=== PATIENT | male | born 1955 | race Caucasian/White ===

== ENCOUNTER → 2016-03-16 | Outpatient (CLI) | payer BC ==
[~2016-03-16] MED LIST: AMLO10TA2 PO; ASPEC325 PO; CLC6 PO; EPPJR SC; HYDR-3419 PO; INDO50CA97 PO; LOSA1TAB38 PO; METH-307 PO
[2016-03-16 09:48] LABS: BLOOD UREA NITROGEN 13 mg/dl (7-18); CALCIUM 9.1 mg/dl (8.5-10.1); CARBON DIOXIDE 29 mmol/L (21-32); CHLORIDE 103 mmol/L (98-107); CREATININE 0.71 mg/dl (0.60-1.40); GLUCOSE 116 mg/dl (70-99); POTASSIUM 4.4 mmol/L (3.5-5.1); SODIUM 141 mmol/L (136-145); URIC ACID 4.4 mg/dl (2.6-7.2)
== END | disposition home or self-care (01) ==
LOC: C.LAB 07:44
DX: I10 Essential (primary) hypertension (principal); E79.0 Hyperuricemia without signs of inflammatory arthritis and tophaceous disease

== ENCOUNTER → 2016-09-28 | Outpatient (CLI) | payer BC ==
[2016-09-28 09:37] LABS: BASO % 0.5 %; BASO ABS # 0.04 K/uL (0-0.2); COMPLETE YES; EOS % 3.8 %; HEMATOCRIT 53.2 % (42-52); IG% 0.4 %; LYMPH ABS # 1.86 K/uL (1.2-3.4); MEAN CELL VOLUME 100.8 fL (80-100); MEAN CORPUSCULAR HEMOGLOBIN 34.7 pg (25-34); MEAN CORPUSCULAR HGB CONC 34.4 g/dl (32-36); MEAN PLATELET VOLUME 11.1 fL (7.4-10.4); MONO % 10.1 %; NEUT % 60.2 %; PLATELET COUNT 186 K/uL (130-400); RED BLOOD COUNT 5.28 M/uL (4.7-6.1); WHITE BLOOD COUNT 7.45 K/uL (4.8-10.8)
[2016-09-28 09:45] LABS: ALT/SGPT 44 U/L (12-78); AST/SGOT 25 U/L (15-37); BLOOD UREA NITROGEN 11 mg/dl (7-18); BUN/CREATININE RATIO 16.7 (10-20); CALCIUM 8.9 mg/dl (8.5-10.1); CARBON DIOXIDE 29 mmol/L (21-32); CHLORIDE 103 mmol/L (98-107); CHOLESTEROL 162 mg/dl (0-200); CREATININE 0.66 mg/dl (0.60-1.40); GLUCOSE 110 mg/dl (70-99); POTASSIUM 3.8 mmol/L (3.5-5.1); SODIUM 138 mmol/L (136-145); TRIGLYCERIDES 51 mg/dl (0-150); URIC ACID 5.2 mg/dl (2.6-7.2); VERY LOW DENSITY LIPOPROT CALC 10 mg/dl
[2016-09-28 09:48] LABS: CHOLESTEROL/HDL RATIO 2.7; HDL CHOLESTEROL 59 mg/dl; LDL CHOLESTEROL CALCULATED 93 mg/dl
== END | disposition home or self-care (01) ==
LOC: C.LAB 07:22
DX: I10 Essential (primary) hypertension (principal); E78.5 Hyperlipidemia, unspecified; E79.0 Hyperuricemia without signs of inflammatory arthritis and tophaceous disease

== ENCOUNTER → 2016-10-13 | Outpatient (CLI) | payer BC ==
--- NOTE | 2016-10-13 13:04 | DIAGNOSTIC IMAGING REPORT ---
CHEST 2 VIEWS ROUTINE CLINICAL HISTORY: POLYCYTHEMIA dyspnea COMPARISON STUDY: No previous studies for comparison. FINDINGS: Moderate emphysematous change. Platelike atelectasis versus parenchymal scarring left lower lung. Mild interstitial prominence bilaterally presumably chronic. Diaphragms are smooth but somewhat flattened. IMPRESSION: Emphysematous and chronic change. No acute process. The above report was generated using voice recognition software. It may contain grammatical, syntax or spelling errors. Electronically signed by: Jaylan Metzger M.D. 10/13/2016 1:02 PM Dictated Date/Time: 10/13/2016 1:01 PM
--- NOTE | 2016-10-15 14:39 | PULMONARY FUNCTION TEST ---
Spirometry shows a mild obstructive pattern. Repeat study done following bronchodilator showed no change in function. Flow volume loops were consistent with spirometric findings. Lung volumes showed an increased residual volume and this would be compatible with air trapping. Diffusion capacity was 131% of predicted, which would be higher than normal. Clinical correlation is advised. The patient has a history of polycythemia. Diffusion can be affected by hemoglobin level.
== END | disposition home or self-care (01) ==
LOC: C.RC 12:15
DX: D75.1 Secondary polycythemia (principal)

== ENCOUNTER → 2017-04-30 | Outpatient (CLI) | payer OTHER ==
[2017-04-30 09:34] LABS: BASO % 0.4 %; BASO ABS # 0.03 K/uL (0-0.2); EOS ABS # 0.22 K/uL (0-0.5); HEMATOCRIT 48.1 % (42-52); IG# 0.02 K/uL (0.00-0.02); LYMPH % 25.4 %; LYMPH ABS # 1.85 K/uL (1.2-3.4); MEAN CELL VOLUME 99.6 fL (80-100); MEAN CORPUSCULAR HEMOGLOBIN 35.2 pg (25-34); MEAN CORPUSCULAR HGB CONC 35.3 g/dl (32-36); MEAN PLATELET VOLUME 10.6 fL (7.4-10.4); MONO % 7.7 %; MONO ABS # 0.56 K/uL (0.11-0.59); NEUT % 63.2 %; NEUT ABS # 4.61 K/uL (1.4-6.5); PLATELET COUNT 215 K/uL (130-400); RED CELL DISTRIBUTION WIDTH CV 12.5 % (11.5-14.5); RED CELL DISTRIBUTION WIDTH SD 45.8 fL (36.4-46.3); WHITE BLOOD COUNT 7.29 K/uL (4.8-10.8)
[2017-04-30 09:45] LABS: ALT/SGPT 29 U/L (12-78); AST/SGOT 17 U/L (15-37); BLOOD UREA NITROGEN 10 mg/dl (7-18); CALCIUM 9.2 mg/dl (8.5-10.1); CARBON DIOXIDE 27 mmol/L (21-32); GLUCOSE 94 mg/dl (70-99); POTASSIUM 4.2 mmol/L (3.5-5.1); SODIUM 139 mmol/L (136-145); URIC ACID 4.2 mg/dl (2.6-7.2)
== END | disposition home or self-care (01) ==
LOC: C.LAB 07:22
DX: R73.9 Hyperglycemia, unspecified (principal); I10 Essential (primary) hypertension; E78.5 Hyperlipidemia, unspecified; E79.0 Hyperuricemia without signs of inflammatory arthritis and tophaceous disease

== ENCOUNTER → 2017-10-05 | Outpatient (CLI) | payer OTHER ==
[2017-10-05 09:36] LABS: BASO % 0.6 %; BASO ABS # 0.05 K/uL (0-0.2); EOS ABS # 0.35 K/uL (0-0.5); HEMATOCRIT 47.4 % (42-52); HEMOGLOBIN 16.3 g/dL (14.0-18.0); IG# 0.02 K/uL (0.00-0.02); LYMPH % 24.1 %; LYMPH ABS # 2.12 K/uL (1.2-3.4); MEAN CELL VOLUME 96.7 fL (80-100); MEAN CORPUSCULAR HEMOGLOBIN 33.3 pg (25-34); MEAN CORPUSCULAR HGB CONC 34.4 g/dl (32-36); MEAN PLATELET VOLUME 10.6 fL (7.4-10.4); MONO % 8.6 %; MONO ABS # 0.76 K/uL (0.11-0.59); NEUT % 62.5 %; PLATELET COUNT 216 K/uL (130-400); RED CELL DISTRIBUTION WIDTH CV 13.2 % (11.5-14.5); RED CELL DISTRIBUTION WIDTH SD 46.6 fL (36.4-46.3)
[2017-10-05 09:50] LABS: HEMOGLOBIN A1C 6.1 % (4.5-5.6)
[2017-10-05 09:54] LABS: ALT/SGPT 26 U/L (12-78); AST/SGOT 14 U/L (15-37); BLOOD UREA NITROGEN 16 mg/dl (7-18); CALCIUM 9.3 mg/dl (8.5-10.1); CARBON DIOXIDE 28 mmol/L (21-32); CHOLESTEROL 167 mg/dl (0-200); CREATININE 0.72 mg/dl (0.60-1.40); GLUCOSE 97 mg/dl (70-99); LDL CHOLESTEROL CALCULATED 110 mg/dl; POTASSIUM 3.8 mmol/L (3.5-5.1); SODIUM 138 mmol/L (136-145); URIC ACID 4.2 mg/dl (2.6-7.2)
== END | disposition home or self-care (01) ==
LOC: C.LAB 07:24
DX: I10 Essential (primary) hypertension (principal); E78.5 Hyperlipidemia, unspecified; M10.9 Gout, unspecified; R73.02 Impaired glucose tolerance (oral)

== ENCOUNTER → 2017-10-28 | Outpatient (CLI) | payer OTHER ==
[2017-10-28 10:37] LABS: BLOOD UREA NITROGEN 24 mg/dl (7-18); CARBON DIOXIDE 23 mmol/L (21-32); CREATININE 0.77 mg/dl (0.60-1.40); GLUCOSE 91 mg/dl (70-99); POTASSIUM 4.4 mmol/L (3.5-5.1); SODIUM 137 mmol/L (136-145)
== END | disposition home or self-care (01) ==
LOC: C.LAB 09:09
DX: I10 Essential (primary) hypertension (principal)

== ENCOUNTER 2019-08-14 20:58 | Inpatient (IN) ==
[2019-08-14] MEDS ORDERED: SODIUM CHLORIDE 0.9% 1000ML 2,000 ML IV ONE (21:55)
[2019-08-14] MEDS ORDERED: ONDANSETRON INJ 2 MG/ML 2 ML VIAL IV STA (21:55)
[2019-08-14 22:06] LABS: Basophils # (auto) 0.02 K/uL (0-0.2); Basophils % (auto) 0.2 %; Eosinophils # (auto) 0.03 K/uL (0-0.5); Eosinophils % (auto) 0.3 %; Hematocrit (blood only) 55.1 % (42-52); Hemoglobin 19.1 g/dL (14.0-18.0); Immature Granulocytes # (auto) 0.02 K/uL (0.00-0.02); Immature Granulocytes % (auto) 0.2 %; Lymphocytes # (auto) 0.99 K/uL (1.2-3.4); Lymphocytes % (auto) 8.7 %; Mean Corpuscular Hemoglobin 33.3 pg (25-34); Mean Platelet Volume 13.6 fL (7.4-10.4); Monocytes # (auto) 0.55 K/uL (0.11-0.59); Monocytes % (auto) 4.8 %; Neutrophils # (auto) 9.76 K/uL (1.4-6.5); Neutrophils % (auto) 85.8 %; Platelet Count 158 K/uL (130-400); RDW Standard Deviation 45.7 fL (36.4-46.3); Red Blood Count 5.74 M/uL (4.7-6.1); White Blood Count 11.37 K/uL (4.8-10.8)
--- NOTE | 2019-08-14 22:06 | Emergency Department Note ---
Impression & Plan SHAGGY (acute kidney injury), Elevated WBC count, Elevated hemoglobin, Elevated blood protein, Serum calcium elevated ED Provider Note NAME: SHANIQUA GARCIA AGE: 64 SEX: M : 1955 ARRIVES VIA: Ambulance INFORMANT: Patient ED PROVIDER(S): Emil Cunningham DO CHIEF COMPLAINT: Weakness HPI: Patient is a 64-year-old male who presents the ER for weakness. He notes that for the past 10 days he has been vomiting about once every hour. He notes he was having trouble with his blood pressure and consequently they are cutting back on his blood pressure medications. He is still fairly dizzy. His dizziness is most prominent when changing positions. Last bowel movement was earlier today. He denies any chest pain or shortness of breath with the exception of vomiting. Patient denies any other exacerbating or remitting factors. He notes that he was too weak to get up today to go the bathroom and consequently that is why they called EMS. There was no fall/trauma. ROS: See above HPI for pertinent positives & negatives. A total of 10 systems reviewed and were otherwise negative. PAST MEDICAL HISTORY:See Below PAST SURGICAL HISTORY:See Below FAMILY HISTORY:See Below SOCIAL HISTORY:See Below HOME MEDICATIONS:See Below ALLERGIES:See Below VITALS:See Below PHYSICAL EXAMINATION: GENERAL: Sitting up in bed, alert, well appearing, well nourished, no distress, non-toxic EYE EXAM: normal conjunctiva. PERRL and EOM's grossly intact. OROPHARYNX: no exudate, no erythema, lips, buccal mucosa, and tongue normal and mucous membranes are moist NECK: supple, no nuchal rigidity, no adenopathy, non-tender LUNGS: Clear to auscultation. Normal chest wall mechanics HEART: no murmurs, S1 normal and S2 normal ABDOMEN: abdomen soft, non-tender, normo-active bowel sounds, no masses, no rebound or guarding. BACK: Back is symmetrical on inspection and there is no deformity, no midline tenderness, no CVA tenderness. SKIN: no rashes and no bruising UPPER EXTREMITIES: upper extremities are grossly normal. LOWER EXTREMITIES: No pitting edema. NEURO EXAM: Normal sensorium, cranial nerves II-XII grossly intact, normal speech, no gross weakness of arms, no gross weakness of legs. No drift. Finger to nose intact. Gross sensation intact. MEDICAL DECISION MAKING: Patient is a 64-year-old male who presents the ER for weakness. Patient notes that he has been vomiting for the past 10 days about once an hour. He is unsure of why. He admits to shortness of breath with vomiting but otherwise no shortness of breath. He is also dizzy with changing positions. His PCP has decreased/stopped his blood pressure medications because of low blood pressure per his report. IV was established blood work was obtained. Labs show mild leukocytosis 11,000. Does show significantly elevated hemoglobin at 19 which I favor secondary to dehydration as his BMP shows a creatinine of 6.13 up from a baseline of 1. BUN is significantly elevated at 189. Magnesium is elevated at 4.7. Calcium elevated at 10.4. Troponin was detectable but not positive. TSH unremarkable. Hay was placed and UA was negative. Hay was placed to track eyes nose with the SHAGGY. CT head was performed due to the dizziness and showed no acute pathology. CT abdomen pelvis showed a fluid-filled esophagus. Gallbladder was distended but no surrounding inflammation. He had no focal tenderness in the right upper quadrant. Do not believe this to be the cause of his symptoms. Patient was updated bedside. Discussed the hospitalist. Did update his . Triage Nursing notes reviewed. Prior medical records reviewed Vital Signs: reviewed and remarkable for tachycardia Differential diagnosis: Differential diagnoses includes but is not limited to gastritis, peptic ulcer disease, GERD, gallbladder disease, pancreatitis, small bowel obstruction, acute coronary syndrome, pericarditis, ischemic bowel, irritable bowel disease, irritable bowel syndrome, appendicitis, diverticulitis, malignancy, hernia, urinary tract infection, torsion, [/ectopic (if female)], perforation, trauma, infectious. ER treatment provided: See below Diagnostics interpreted by me: ECG: Sinus tachycardia rate of 99 Normal axis No PVCs Septal Q waves Nonspecific ST wave changes in the inferior and lateral leads Cardiac Monitoring: An order was placed for continuous cardiac monitoring. The monitor shows a rate of 98 with sinus rhythm. Laboratory studies: As stated above and show below. Imaging studies: CT abdomen pelvis shows no acute pathology CT head shows no acute pathology Consultation(s): Discussed with Anselmo Jiang ED COURSE: Procedures: none PDMP:reviewed and no issues Critical Care: None Past Med/Surg History Surgical History (Updated 08/15/19 @ 01:02 by Deb Tirado MD) H/O right hemicolectomy Social History Feels Safe at Home: Yes Smoking Status: Never smoker Allergies Allergies Allergy/AdvReac Type Severity Reaction Status Date / Time bee venom protein (honey bee) Allergy Severe ANAPHYLACTIC Verified 08/14/19 22:51 REACTION A CHILD Home Meds Home Medications Medication Instructions Recorded Confirmed amlodipine 10 mg PO DAILY 08/14/19 08/14/19 epinephrine [EpiPen] 0.3 mg IM DIRECTED PRN 08/14/19 08/14/19 losartan 100 mg PO DAILY 08/14/19 08/14/19 methocarbamol 750 mg PO QID 08/14/19 08/14/19 metoclopramide HCl 10 mg PO .Q6-8HRS PRN 08/14/19 08/14/19 omeprazole 40 mg PO QAM 08/14/19 08/14/19 spironolactone 25 mg PO DAILY 08/14/19 08/14/19 Results & Data (ED) Vital Signs Vital Signs - 24 hr 08/14/19 21:10 08/14/19 21:31 08/14/19 22:09 Temperature 36.7 C Temperature Source Oral Pulse Rate 102 H 98 H Pulse Rate [Right Finger] 96 H Pulse Rate from SpO2 Sensor 98 H Pulse Rhythm Regular Pulse Rhythm [Right Finger] Regular Pulse Strength Normal Pulse Strength [Right Finger] Normal Respiratory Rate 17 13 18 Respiratory Effort / Characteristics Non-Labored Spontaneous Respiratory Depth Normal Normal Respiratory Pattern Regular Blood Pressure 93/82 L 118/76 Blood Pressure [Right Arm] 114/77 Blood Pressure Mean 85 91 Blood Pressure Mean [Right Arm] 89 Blood Pressure Position Lying Blood Pressure Position [Right Arm] Lying Pulse Oximetry 98 97 98 Oxygen Delivery Method Room Air Room Air Room Air Sepsis Recent Fever Within 48 Hours No Sepsis Action Taken by Nursing No Action Required 08/14/19 22:39 Temperature Temperature Source Pulse Rate Pulse Rate [Right Finger] 97 H Pulse Rate from SpO2 Sensor Pulse Rhythm Pulse Rhythm [Right Finger] Pulse Strength Pulse Strength [Right Finger] Respiratory Rate 16 Respiratory Effort / Characteristics Respiratory Depth Respiratory Pattern Blood Pressure Blood Pressure [Right Arm] 104/69 Blood Pressure Mean Blood Pressure Mean [Right Arm] 80 Blood Pressure Position Blood Pressure Position [Right Arm] Sitting Pulse Oximetry 98 Oxygen Delivery Method Room Air Sepsis Recent Fever Within 48 Hours Sepsis Action Taken by Nursing Laboratory Data Result diagrams: 08/14/19 21:55 08/14/19 21:55 Lab Results 08/14/19 08/14/19 08/14/19 Range/Units 21:55 21:55 23:14 WBC 11.37 H (4.8-10.8) K/uL RBC 5.74 (4.7-6.1) M/uL Hgb 19.1 H (14.0-18.0) g/dL Hct 55.1 H (42-52) % MCV 96.0 (80-100) fL MCH 33.3 (25-34) pg MCHC 34.7 (32-36) g/dL RDW Std Deviation 45.7 (36.4-46.3) fL RDW Coeff of [place] 13.0 (11.5-14.5) % Plt Count 158 (130-400) K/uL MPV 13.6 H (7.4-10.4) fL Immature Gran % (Auto) 0.2 % Neut % (Auto) 85.8 % Lymph % (Auto) 8.7 % [place] % (Auto) 4.8 % Eos % (Auto) 0.3 % Baso % (Auto) 0.2 % Immature Gran # (Auto) 0.02 (0.00-0.02) K/uL Neut # (Auto) 9.76 H (1.4-6.5) K/uL Lymph # (Auto) 0.99 L (1.2-3.4) K/uL [place] # (Auto) 0.55 (0.11-0.59) K/uL Eos # (Auto) 0.03 (0-0.5) K/uL Baso # (Auto) 0.02 (0-0.2) K/uL Sodium 142 (136-145) mmol/L Potassium 3.8 (3.5-5.1) mmol/L Chloride 101 (98-107) mmol/L Carbon Dioxide 20 L (21-32) mmol/L Anion Gap 21.0 H (3-11) BUN 189 H (7-18) mg/dl Creatinine 6.13 H* (0.6-1.4) mg/dl Est Cr Clr Drug Dosing 10.8 ml/min Est GFR ( Amer) 10.1 Est GFR (Non-Af Amer) 8.7 BUN/Creatinine Ratio 30.8 H (10-20) Glucose 156 H (70-99) mg/dl Calcium 10.4 H (8.5-10.1) mg/dl Magnesium Cancelled Total Bilirubin 0.7 (0.2-1) mg/dl AST 12 L (15-37) U/L ALT 24 (12-78) U/L Alkaline Phosphatase 69 (45-117) U/L Troponin I 0.025 (0-0.045) ng/ml Total Protein 10.1 H (6.4-8.2) gm/dl Albumin 4.5 (3.4-5.0) gm/dl Globulin 5.6 H (2.5-4.0) gm/dl Albumin/Globulin Ratio 0.8 L (0.9-2) TSH 0.366 (0.300-4.500) uIu/ml Urine Color Yellow Urine Appearance Cloudy A (Clear) Urine pH 5.0 (4.5-7.5) Ur Specific [place] 1.022 (1.000-1.030) Urine Protein Negative (Negative) Urine Glucose (UA) Negative (Negative) Urine Ketones Negative (Negative) Urine Blood 1+ H (Negative) Urine Nitrite Negative (Negative) Urine Bilirubin Negative (Negative) Urine Urobilinogen Negative (Negative) Ur Leukocyte Esterase Negative (Negative) Urine WBC (Auto) 0 (0-5) /hpf Urine RBC (Auto) 0-4 (0-4) /hpf U Hyaline Cast (Auto) >30 H (0-5) /lpf U Epithel Cells (Auto) 0-5 (0-5) /lpf Urine Bacteria (Auto) Negative (Negative) Administered Medications Discontinued Medications Sodium Chloride (Nss 1000ml) 2,000 mls @ 999 mls/hr IV .Q2H1M ONE Stop: 08/14/19 23:55 Last Admin: 08/14/19 22:16 Dose: 999 mls/hr Documented by: [id number] Ondansetron HCl (Zofran) 4 mg IV NOW STA Stop: 08/14/19 21:56 Last Admin: 08/14/19 22:16 Dose: 4 mg Documented by: [id number] Discharge Plan Visit Data Chief Complaint: Weakness Stated Complaint: WEAKNESS ED Provider: Emil Cunningham Discharge Problem: SHAGGY (acute kidney injury), Elevated WBC count, Elevated hemoglobin, Elevated blood protein, Serum calcium elevated Discharge Instructions Interventions: ED Discharge Assessment Last Done: 08/15/19 00:21
[2019-08-14 22:09] LABS: Mean Corpuscular Hgb Conc 34.7 g/dL (32-36)
[2019-08-14 22:38] LABS: Albumin Globulin Ratio 0.8 (0.9-2); Albumin Level 4.5 gm/dl (3.4-5.0); Bilirubin,Total 0.7 mg/dl (0.2-1); Calcium 10.4 mg/dl (8.5-10.1); Creatinine Clr Calc Pharmacy 10.8 ml/min; Est GFR (African American) 10.1; Est GFR (Non-African American) 8.7; Globulin 5.6 gm/dl (2.5-4.0); Potassium 3.8 mmol/L (3.5-5.1); Thyroid Stimulating Hormone 0.366 uIu/ml (0.300-4.500); Total Protein 10.1 gm/dl (6.4-8.2); Troponin I 0.025 ng/ml (0-0.045)
[2019-08-14 22:50] LABS: BUN Creatinine Ratio 30.8 (10-20)
--- NOTE | 2019-08-14 22:57 | History & Physical Report ---
Date of Service August 14, 2019 Assessment & Plan (1) Weakness: Mr. Tariq is a 64 yo M presenting to the ED with progressive weakness in the setting of persistent vomiting, found to have an SHAGGY on admission. - weakness likely secondary to dehydration (vomiting and poor PO intake) and reduced caloric consumption vs. secondary metabolic process - patient received 2L of fluid in the ED - continue normal saline at 125 mls/hr (2) Vomiting: - frequent over the past 10 days - etiology unknown; infectious cause unlikely to persist for the described duration - CT of abdomen and pelvis showing no structural abnormality - consider GI consult - zofran ordered prn (3) SHAGGY (acute kidney injury): - creatinine elevated to 6.13 on admission - baseline Cr appears to be ~ 0.8 - BUN elevated to 189, ratio at 30. - etiology : pre-renal vs. intra-renal vs. post-renal - patient certainly has risk factor for pre-renal etiology given persistent vomiting and poor PO intake - BUN/Cr ratio > 20 supports this etiology - patient is not on any nephrotoxic medications, nor does he have any signs or symptoms of a post-renal obstructive process - continue IV fluids - repeat Cr in AM (4) Dizziness: - likely secondary to dehydration (vomiting and poor PO intake) vs. 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 reactive to an infectious process - patient afebrile, UA clear, CXR clear, no obvious source of infection - anticipate resolution with volume repletion - repeat CBC in AM (7) Elevated hemoglobin: - hgb elevated to 19.1 on admission - likely hemoconcentration secondary to relative volume depletion vs. secondary process such as hemochromatosis - IV fluids as above - repeat CBC in AM (8) Elevated blood protein: - total protein elevated to 10.4. - given general observation of hemoconcentration, likely secondary to volume depletion vs. secondary process such as multiple myeloma - repeat CMP in AM to reassess protein level when patient has been hydrated - consider UPEP/SPEP if total protein remains elevated despite IV fluid replacement (9) Electrolyte abnormality: - calcium elevated to 10.4 - magnesium elevated to 4.7 - likely secondary to volume depletion - IV fluids as above - repeat levels in AM Dispo: Med/Surg with tele Diet: Regular DVT: heparin 5,000 units, SQ q12 Code: full (10) H/O right hemicolectomy: History of Present Illness Primary Care Provider: Lobito Orourke Jr, DO Mr. Tariq is a 64 yo gentleman with PMHx of hypertension who presented to the ED for evaluation of progressive weakness. At baseline, Mr. Tariq is quite healthy and active. However, over the 10 days preceding admission, he developed GI distress causing him to vomit very frequently, about once every hour. He says he cannot keep any solid food or liquid down for more than 15 minutes. The vomitus has been non-bloody and non-bilious. He had no associated abdominal pain, diarrhea, or fever. At first, he attributed his symptoms to food poisoning, however he cannot recall eating anything that may have been the cause. Mr. Tariq describes progressive weakness and dizziness over this time period, which promoted him to contact his PCP. His PCP scaled back his blood pressure medications and started him on omeprazole and metoclopramide, from which Mr. Tariq did not achieve much benefit. He has a pertinent surgical history of a right sided hemicolectomy and appendectomy. ED course: WBC mildly elevated to 11.3. Hgb elevated to 19. Platelets normal. Cr elevated to 6.13, BUN at 189, ratio 30. Anion Gap at 21. Calcium elevated to 10.4. Magnesium elevated to 4.7. Electrolytes otherwise stable. Total protein elevated to 10.4. UA benign. CXR without active disease. Head CT showing no active disease. CT of abdomen and pelvis showing a distended gallbladder without surrounding inflammation, no structural disease of the kidneys, small ventral hernias without fat stranding, diverticulosis without diverticulitis. Patient was administered 2 liters of IV normal saline and a dose of IV zofran. A steward catheter was placed in the ED. Allergies Allergy/AdvReac Type Severity Reaction Status Date / Time bee venom protein (honey bee) Allergy Severe ANAPHYLACTIC Verified 08/14/19 22:51 REACTION A CHILD Home Medications Home Medications Medication Instructions Recorded Confirmed Type amlodipine 10 mg PO DAILY 08/14/19 08/14/19 History epinephrine [EpiPen] 0.3 mg IM DIRECTED PRN 08/14/19 08/14/19 History losartan 100 mg PO DAILY 08/14/19 08/14/19 History methocarbamol 750 mg PO QID 08/14/19 08/14/19 History metoclopramide HCl 10 mg PO .Q6-8HRS PRN 08/14/19 08/14/19 History omeprazole 40 mg PO QAM 08/14/19 08/14/19 History spironolactone 25 mg PO DAILY 08/14/19 08/14/19 History Past Med/Surg History Social History Preferred Language: Greenlandic Communication Ability: Effective 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 Beliefs That Will Affect Care: None Current Living Situation: Spouse Other Information That Helps Us Care for You: No Feels Safe at Home: Yes Safety Concerns: Feels Safe At This Time Smoking Status: Former smoker Hx Alcohol Use: No Hx Substance Use: No Review of Systems Constitutional: + weakness Gastrointestinal: + nausea Physical Exam Constitutional: WD/WN, vitals as above + acute distress (mild) and cooperative Eyes: + anicteric sclerae ENMT: external ear and nose normal, oropharynx normal Mucous membranes dry Neck: normal visual inspection and trachea midline Respiratory: normal respiratory effort, lungs clear to auscultation Cardiovascular: RRR, no murmur, no edema Heart Sounds: normal S1 and normal S2 Extremities: no pedal edema Gastrointestinal (Abdomen): Inspection/Auscultation: abdomen normal to inspection and normal bowel sounds; abdomen not distended Percussion/Palpation: + abdomen tender (suprapubic area ) and + abdomen firm; no guarding and no hepatosplenomegaly Skin: no rashes, warm and dry Psychiatric: A+Ox3, euthymic affect Genitourinary: + steward catheter in place draining dark yellow urine Results & Data Results & Data ([facility]) Vital Signs (Past 12 Hours) Vital Signs Temp Pulse Pulse Resp BP BP Pulse Ox 08/14/19 22:39 97 H 16 104/69 98 08/14/19 22:09 96 H 18 114/77 98 08/14/19 21:31 98 H 13 118/76 97 08/14/19 21:10 36.7 C 102 H 17 93/82 L 98 Supervising Physician Co-Signing Physician Notes Attending addendum: I have physically seen this patient, have supervised the medical residents activities, and agree with the H&P unless as otherwise noted. Assessment and Plan: Acute renal failure/dehydration- Creatinine 6.13 upon admission with baseline 0.8. Received 2 L normal saline in ED, will continue 125 mL's per hour. Repeat laboratories in a.m. Follow urine culture sensitivities. Hold losartan and spironolactone. Dehydration secondary to nausea, vomiting diarrhea over the past 10 days, that patient attributes to food poisoning Persistence of nausea and vomiting at this point may be continued by uremia. Stool for culture and C. difficile Hypertension- Holding losartan and spironolactone as noted above. Continue amlodipine with hold parameters Hyperglycemia- Check hemoglobin A1c May be reactive. Remainder of orders and notations as noted. Resident Activity Tracking Resident Involvement: Resident Care Provided Care Provided: Adult Hospital Medicine
[2019-08-14 23:33] LABS: Appearance Urine Cloudy (Clear); Bacteria Urine Automated Negative (Negative); Bilirubin Urine Negative (Negative); Blood Urine 1+ (Negative); Color Urine Yellow; Epithelial Cell Urine Auto 0-5 /lpf (0-5); Glucose Urine UA Negative (Negative); Ketones Urine Negative (Negative); Leukocyte Esterase Urine Negative (Negative); Nitrite Urine Negative (Negative); Protein Urine Negative (Negative); RBC Urine Automated 0-4 /hpf (0-4); Specific Gravity Urine 1.022 (1.000-1.030); Urobilinogen Urine Negative (Negative); WBC Urine Automated 0 /hpf (0-5)
[2019-08-14 23:48] LABS: Cast Urine Automated >30 /lpf (0-5)
[2019-08-15 00:33] LABS: Magnesium 4.7 mg/dl (1.8-2.4)
[2019-08-15] MEDS ORDERED: EPINEPHRINE ADULT AUTO-INJECT 0.3 MG SYR IM PRN (01:03)
[2019-08-15] MEDS ORDERED: MAGNESIUM HYDROXIDE SUSP 30 ML UDC PO PRN (01:03)
[2019-08-15] MEDS ORDERED: ZOLPIDEM TARTRATE 5 MG TAB PO PRN (01:03)
[2019-08-15] MEDS ORDERED: POLYETHYLENE (MIRALAX) 17 GM PACK PO PRN (01:03)
[2019-08-15] MEDS ORDERED: ALUMINUM/MAGNESIUM SUSP 30 ML UDC PO PRN (01:03)
[2019-08-15] MEDS ORDERED: ACETAMINOPHEN 325 MG TAB PO PRN (01:03)
[2019-08-15] MEDS: ONDANSETRON INJ 2 MG/ML 2 ML VIAL IV PRN ×4 (01:24→22:43)
[2019-08-15] MEDS: SODIUM CHLORIDE 0.9% 1000ML 1,000 ML IV SCH ×2 (01:24→08:15)
--- NOTE | 2019-08-15 06:42 | Electrocardiogram Report ---
Test Reason : Blood Pressure : / mmHG Vent. Rate : 099 BPM Atrial Rate : 099 BPM P-R Int : 172 ms QRS Dur : 080 ms QT Int : 344 ms P-R-T Axes : 080 052 077 degrees QTc Int : 441 ms Normal sinus rhythm Low voltage QRS Septal infarct (cited on or before 26-JAN-2000) Nonspecific ST and T wave abnormality Abnormal ECG When compared with ECG of 28-MAY-2010 09:18, Nonspecific T wave abnormality now evident in Lateral leads Confirmed by Kade Rowley ([id number]) on 08/15/2019 6:42:07 AM Referred By: REFERRED SELF Confirmed By:Kade Rowley
--- NOTE | 2019-08-15 06:59 | CT Scan Report ---
CT OF THE ABDOMEN AND PELVIS WITHOUT CONTRAST CLINICAL HISTORY: Nausea and vomiting. COMPARISON STUDY: No previous studies for comparison. TECHNIQUE: Axial images of the abdomen and pelvis were obtained without IV contrast. Images were revi ewed in the axial, sagittal, and coronal planes. Automated exposure control was utilized for the jose cruz dy. A dose lowering technique was utilized adhering to the principles of ALARA. FINDINGS: No pneumatosis, free air or portal venous gas is present. No renal, ureteral or bladder diego culi are present. Bladder is mildly distended. Evaluation of the remainder of the abdomen and pelvis is suboptimal on this unenhanced examination. The liver, spleen, adrenal glands and pancreas are unre markable. Gallbladder is mildly distended. There is no pericholecystic infiltration. There are small gallstones within the gallbladder. There is no biliary or pancreatic ductal dilatation. Colonic diver ticulosis is noted without evidence for acute diverticulitis. Patient is status post right colon rese ction. Tiny adjacent lymph nodes are likely benign. No pathologically enlarged lymph nodes are noted within the abdomen or pelvis. Multiple fat containing ventral hernias are present. Right hip arthropl asty is noted. Fat-containing right inguinal hernia is present. Multilevel degenerative changes withi n lumbar spine are present. There is no fracture or suspicious lesion. Mild dilatation of the distal esophagus is noted which is fluid-filled. IMPRESSION: 1. No acute process within the abdomen or pelvis on unenhanced exam. 2. Cholelithiasis and mild gallbladder distention. No pericholecystic infiltration. 3. Mildly distended, fluid-filled distal esophagus. This may reflect reflux. 4. Colonic diverticulosis without evidence for acute diverticulitis. Right colon resection. No bowel obstruction. ACT 112: Negative or not required by law. Electronically signed by: Shane Braun M.D. 08/15/2019 6:57 AM
--- NOTE | 2019-08-15 06:59 | CT Scan Report ---
CT head/brain wo con CLINICAL HISTORY: dizzy COMPARISON STUDY: No previous studies for comparison. TECHNIQUE: Axial CT of the brain is performed from the vertex to the skull base. IV contrast was not administered for this examination. A dose lowering technique was utilized adhering to the principles of ALARA. CT DOSE: 1567.35 mGy.cm FINDINGS: No intra or extra-axial mass lesions are visualized. There is no CT evidence of acute cortical infarc tion. There is no evidence of midline shift. There is no acute hemorrhage. No calvarial fractures ar e visualized. There is no evidence of pathologic ventricular dilatation. There is no evidence of acute sinusitis IMPRESSION: No acute intracranial findings ACT 112: Negative or not required by law. Electronically signed by: Frandy Palacios M.D. 08/15/2019 6:58 AM
--- NOTE | 2019-08-15 07:30 | XRay Report ---
XR chest 1V portable CLINICAL HISTORY: weakness COMPARISON STUDY: Chest radiograph October 13, 2016. FINDINGS: Lung volumes are normal. Lungs are clear. There is no pneumothorax or pleural effusion. Car diac size is normal. Mediastinal contours are normal. There is no evidence for pulmonary edema. IMPRESSION: No acute cardiopulmonary findings. ACT 112: Negative or not required by law. Electronically signed by: Shane Braun M.D. 08/15/2019 7:28 AM
[2019-08-15] MEDS: HEPARIN SOD 5,000 UNIT/0.5 ML VIAL SQ SCH ×2 (08:26→20:54)
[2019-08-15 08:52] LABS: Hematocrit (blood only) 47.1 % (42-52); Hemoglobin 15.6 g/dL (14.0-18.0); Mean Corpuscular Hemoglobin 31.8 pg (25-34); Mean Corpuscular Hgb Conc 33.1 g/dL (32-36); Mean Corpuscular Volume 96.1 fL (80-100); Platelet Count 124 K/uL (130-400); RDW Coefficient of Variation 13.1 % (11.5-14.5); RDW Standard Deviation 46.1 fL (36.4-46.3); White Blood Count 10.78 K/uL (4.8-10.8)
[2019-08-15 09:00] LABS: Basophils # (auto) 0.02 K/uL (0-0.2); Basophils % (auto) 0.2 %; Eosinophils # (auto) 0.03 K/uL (0-0.5); Eosinophils % (auto) 0.3 %; Immature Granulocytes # (auto) 0.01 K/uL (0.00-0.02); Immature Granulocytes % (auto) 0.1 %; Lymphocytes # (auto) 0.62 K/uL (1.2-3.4); Lymphocytes % (auto) 5.8 %; Monocytes # (auto) 0.66 K/uL (0.11-0.59); Monocytes % (auto) 6.1 %; Neutrophils # (auto) 9.44 K/uL (1.4-6.5); Neutrophils % (auto) 87.5 %
[2019-08-15] MEDS ORDERED: PANTOprazole 40 MG TAB PO SCH (09:00)
[2019-08-15] MEDS ORDERED: PROMETHAZINE HCL 12.5 MG in SODIUM CHLORIDE 0.9% 50 ML IV PRN (09:22)
[2019-08-15 09:24] LABS: Albumin Globulin Ratio 0.8 (0.9-2); Albumin Level 3.6 gm/dl (3.4-5.0); Bilirubin,Total 0.6 mg/dl (0.2-1); Calcium 9.4 mg/dl (8.5-10.1); Creatinine Clr Calc Pharmacy 13.8 ml/min; Est GFR (African American) 12.7; Est GFR (Non-African American) 10.9; Globulin 4.5 gm/dl (2.5-4.0); Magnesium 4.7 mg/dl (1.8-2.4); Potassium 3.6 mmol/L (3.5-5.1); Total Protein 8.1 gm/dl (6.4-8.2)
[2019-08-15 09:36] LABS: BUN Creatinine Ratio 48.8 (10-20)
[2019-08-15] MEDS ORDERED: NORMOSOL-R 1,000 ML IV SCH (10:30)
--- NOTE | 2019-08-15 10:48 | Nephrology Consultation ---
Date of Consultation August 15, 2019 Assessment & Plan (1) SHAGGY (acute kidney injury): Baseline creatinine 0.8 mg/dL. Kidneys otherwise normal in size and appearance on CT. Bladder distended on CT with some fullness of left collecting system but no obvious obstruction. No stones. Non-oliguric. Electrolytes appropriate. Symptoms improving. Tolerating IVF. Volume status remains hypovolemic. Consider potential GI source of azotemia as well. No emergent indication for dialysis. Potential future indications discussed with patient today. UA + blood, microscopy + granular casts -- consistent with ATN. Will provide an additional 1 L of balance IVF over the next 4 hours and repeat a metabolic profile. Please document I/O's. Repeat renal panel + UA + CK ordered for this afternoon. Follow up renal US pending. (2) Hypertension: Hold losartan and spironolactone. BP acceptable with all antihypertensives held at this time. No additional evaluation necessary currently. History of Present Illness Reason for Consultation: SHAGGY Requesting Physician: Teofilo Garibay MD Attending Physician: Teofilo Garibay MD History of Present Illness Mr. Federico Tariq is a 64-year-old male with hypertension and a history of a right hemicolectomy. He presented to the emergency department with profound generalized weakness as well as several days of vomiting and nausea. Emesis was non-blood and non-bilious. He denies melena, hematochezia, or diarrhea. Oral intake has been poor. He denies any change in his urine output or significant LUTS. Symptoms have improved since admission with anti-nausea medications and IV fluids. There has been no obvious source of infection. The etiology of his nausea and anorexia is unclear. Abdominal CT scan was unrevealing. On presentation the patient was found to have profound acute renal insufficiency. Serum creatinine elevated at over 6 milligrams/deciliter. This is improved by 1 milligram/deciliter with IV fluids. However azotemia is notably increased. The patient's BUN has risen notably. Electrolytes are otherwise appropriate. The patient has been nonoliguric. The abdominal CT scan demonstrated distended bladder with some fullness of the collecting system on the left. Follow-up ultrasound has been ordered for today. Urinalysis was notable for blood on dipstick with negative microscopy. Granular casts however were noted. 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 Spironolactone and losartan have been held. Blood pressure has been appropriate. He reports taking 3 x 325 mg aspirin daily for several years but denies any other NSAID use. He states that he knows about dialysis and is receptive to starting if needed. Allergies Allergy/AdvReac Type Severity Reaction Status Date / Time bee venom protein (honey bee) Allergy Severe ANAPHYLACTIC Verified 08/14/19 22:51 REACTION A CHILD Home Medications Home Medications Medication Instructions Recorded Confirmed Type amlodipine 10 mg PO DAILY 08/14/19 08/14/19 History epinephrine [EpiPen] 0.3 mg IM DIRECTED PRN 08/14/19 08/14/19 History losartan 100 mg PO DAILY 08/14/19 08/14/19 History methocarbamol 750 mg PO QID 08/14/19 08/14/19 History metoclopramide HCl 10 mg PO .Q6-8HRS PRN 08/14/19 08/14/19 History omeprazole 40 mg PO QAM 08/14/19 08/14/19 History spironolactone 25 mg PO DAILY 08/14/19 08/14/19 History Patient History Medical History (Updated 08/15/19 @ 10:44 by Niranjan Mcnally DO) Hypertension Surgical History H/O right hemicolectomy Social History Preferred Language: Togolese Communication Ability: Effective Social Media Sr Strategy Manager Required: No Beliefs That Will Affect Care: None Current Living Situation: Spouse Other Information That Helps Us Care for You: No Feels Safe at Home: Yes Safety Concerns: Feels Safe At This Time Smoking Status: Former smoker Hx Alcohol Use: No Hx Substance Use: No Review of Systems Review of Systems: All systems reviewed & are unremarkable except as noted in HPI & below Physical Exam Constitutional: well developed; no acute distress Eyes: no scleral abnormality and no corneal abnormality ENMT: Mouth: no oral mucosal abnormality and oral mucous membranes not dry Neck: normal visual inspection and trachea midline Respiratory: normal respiratory effort Auscultation: lungs clear to auscultation bilaterally Cardiovascular: Rate/Rhythm: regular rate Heart Sounds: normal S1 and normal S2 Extremities: no edema Musculoskeletal: Extremities: no cyanosis and no clubbing Skin: normal turgor; no lesions Neurologic: Motor/Sensory: no tremor and no asterixis Psychiatric: Orientation: alert and oriented x 3 Results & Data Vital Signs (Past 12 Hours) Vital Signs Temp Pulse Pulse Resp BP BP Pulse Ox 08/15/19 07:00 36.5 C 84 18 105/71 95 08/15/19 02:52 36.6 C 92 H 18 105/68 92 08/15/19 01:33 36.7 C 97 H 18 105/72 97 08/15/19 00:21 96 H 18 105/87 98 08/14/19 22:39 97 H 16 104/69 98 Laboratory Results Laboratory Results - last 24 hr 08/14/19 08/14/19 08/14/19 21:55 21:55 23:14 WBC 11.37 H RBC 5.74 Hgb 19.1 H Hct 55.1 H MCV 96.0 MCH 33.3 MCHC 34.7 RDW Std Deviation 45.7 RDW Coeff of [place] 13.0 Plt Count 158 MPV 13.6 H Immature Gran % (Auto) 0.2 Neut % (Auto) 85.8 Lymph % (Auto) 8.7 [place] % (Auto) 4.8 Eos % (Auto) 0.3 Baso % (Auto) 0.2 Immature Gran # (Auto) 0.02 Neut # (Auto) 9.76 H Lymph # (Auto) 0.99 L [place] # (Auto) 0.55 Eos # (Auto) 0.03 Baso # (Auto) 0.02 Sodium 142 Potassium 3.8 Chloride 101 Carbon Dioxide 20 L Anion Gap 21.0 H BUN 189 H Creatinine 6.13 H* Est Cr Clr Drug Dosing 10.8 Est GFR ( Amer) 10.1 Est GFR (Non-Af Amer) 8.7 BUN/Creatinine Ratio 30.8 H Glucose 156 H Calcium 10.4 H Magnesium Cancelled Total Bilirubin 0.7 AST 12 L ALT 24 Alkaline Phosphatase 69 Troponin I 0.025 Total Protein 10.1 H Albumin 4.5 Globulin 5.6 H Albumin/Globulin Ratio 0.8 L TSH 0.366 Specimen Hemolysis Urine Color Yellow Urine Appearance Cloudy A Urine pH 5.0 Ur Specific [place] 1.022 Urine Protein Negative Urine Glucose (UA) Negative Urine Ketones Negative Urine Blood 1+ H Urine Nitrite Negative Urine Bilirubin Negative Urine Urobilinogen Negative Ur Leukocyte Esterase Negative Urine WBC (Auto) 0 Urine RBC (Auto) 0-4 U Hyaline Cast (Auto) >30 H U Epithel Cells (Auto) 0-5 Urine Bacteria (Auto) Negative GISELE Screen Anti-Proteinase 3 Anti-Myeloperoxidase ANCA 08/15/19 08/15/19 08/15/19 00:04 08:21 08:21 WBC 10.78 RBC 4.90 Hgb 15.6 D Hct 47.1 MCV 96.1 MCH 31.8 MCHC 33.1 RDW Std Deviation 46.1 RDW Coeff of [place] 13.1 Plt Count 124 L MPV 13.0 H Immature Gran % (Auto) 0.1 Neut % (Auto) 87.5 Lymph % (Auto) 5.8 [place] % (Auto) 6.1 Eos % (Auto) 0.3 Baso % (Auto) 0.2 Immature Gran # (Auto) 0.01 Neut # (Auto) 9.44 H Lymph # (Auto) 0.62 L [place] # (Auto) 0.66 H Eos # (Auto) 0.03 Baso # (Auto) 0.02 Sodium 148 H Potassium 3.6 Chloride 112 H Carbon Dioxide 22 Anion Gap 14.0 H BUN 248 H Creatinine 5.09 H* D Est Cr Clr Drug Dosing 13.8 Est GFR ( Amer) 12.7 Est GFR (Non-Af Amer) 10.9 BUN/Creatinine Ratio 48.8 H Glucose 141 H Calcium 9.4 Magnesium 4.7 H 4.7 H Total Bilirubin 0.6 AST 12 L ALT 20 Alkaline Phosphatase 57 Troponin I Total Protein 8.1 Albumin 3.6 Globulin 4.5 H Albumin/Globulin Ratio 0.8 L TSH Specimen Hemolysis Urine Color Urine Appearance Urine pH Ur Specific [place] Urine Protein Urine Glucose (UA) Urine Ketones Urine Blood Urine Nitrite Urine Bilirubin Urine Urobilinogen Ur Leukocyte Esterase Urine WBC (Auto) Urine RBC (Auto) U Hyaline Cast (Auto) U Epithel Cells (Auto) Urine Bacteria (Auto) GISELE Screen Anti-Proteinase 3 Anti-Myeloperoxidase ANCA 08/15/19 08:21 WBC RBC Hgb Hct MCV MCH MCHC RDW Std Deviation RDW Coeff of [place] Plt Count MPV Immature Gran % (Auto) Neut % (Auto) Lymph % (Auto) [place] % (Auto) Eos % (Auto) Baso % (Auto) Immature Gran # (Auto) Neut # (Auto) Lymph # (Auto) [place] # (Auto) Eos # (Auto) Baso # (Auto) Sodium Potassium Chloride Carbon Dioxide Anion Gap BUN Creatinine Est Cr Clr Drug Dosing Est GFR ( Amer) Est GFR (Non-Af Amer) BUN/Creatinine Ratio Glucose Calcium Magnesium Total Bilirubin AST ALT Alkaline Phosphatase Troponin I Total Protein Albumin Globulin Albumin/Globulin Ratio TSH Specimen Hemolysis Urine Color Urine Appearance Urine pH Ur Specific [place] Urine Protein Urine Glucose (UA) Urine Ketones Urine Blood Urine Nitrite Urine Bilirubin Urine Urobilinogen Ur Leukocyte Esterase Urine WBC (Auto) Urine RBC (Auto) U Hyaline Cast (Auto) U Epithel Cells (Auto) Urine Bacteria (Auto) GISELE Screen Pending Anti-Proteinase 3 Pending Anti-Myeloperoxidase Pending ANCA Pending PG Care Time/CCT Total # of Minutes Spent Total Time Spent with Patient: Total time spent is greater than 50% in coordination of care (as documented) at patient's floor/unit and/or counseling patient: Coding Level of Care Code 48677 Inpt Consult Level 4 Diagnoses SHAGGY (acute kidney injury) N17.9 Hypertension I10
--- NOTE | 2019-08-15 11:59 | Ultrasound Report ---
US renal/blad retro comp HISTORY: 64 years-old Male Acute kidney failure COMPARISON: CT abdomen and pelvis 08/14/2019 TECHNIQUE: Multiple real-time sonographic images of the kidneys and urinary bladder were obtained ass essing grayscale appearance and color flow FINDINGS: The right kidney measures 12.2 cm in length and demonstrates no renal calculi or hydronephrosis. Ther e is an exophytic hypoechoic lesion of the interpolar right kidney, 9 mm suggestive of a probable cys t. For a catheter is noted within a decompressed urinary bladder. The prostate is prominent in size. The left kidney measures 13.3 cm in length and demonstrates no renal calculi or hydronephrosis. Proba ble dromedary hump of the interpolar left kidney without discrete lesion identified. Mild gallbladder distention with cholelithiasis and gallbladder sludge. IMPRESSION: 1. No renal calculi or hydronephrosis. 2. Decompressed urinary bladder with Hay catheter. 3. Mild gallbladder distention with cholelithiasis and gallbladder sludge. ACT 112: Negative or not required by law. The above report was generated using voice recognition software. It may contain grammatical, syntax o r spelling errors. Electronically signed by: Aramis Vásquez M.D. 08/15/2019 11:58 AM
--- NOTE | 2019-08-15 15:38 | Hospitalist Progress Note ---
Date of Service August 15, 2019 Assessment & Plan (1) SHAGGY (acute kidney injury): Unclear cause at present. Denies any LUTS that would indicate enlarged prostate and post-renal. Has been having nausea and vomiting x 10 days, so could be pre-renal. Also has been using aspirin 1 g (325 mg x 3 pills) once a day for "40 years," so NSAID use may be contributing. May be a combination of factors. - Appreciate nephrology consult - Renal ultrasound on 08/14 & CT a/p on 08/14/2019 showed no major abno rmalities. - GISELE/ANCA pending - Continue IV fluids per nephrology (2) Vomiting: Unclear whether he had a primary GI complaint that caused his initial nausea and vomiting or if it was high BUN from SHAGGY. Denies eating out, eating any new/different foods, sick contacts, etc. - Presently still with symptoms. Treating with Zofran and Phenergan PRN. (3) Hypertension: BP presently 110/70. - Holding losartan and spironolactone for SHAGGY - Holding amlodipine for normal BP for now. (4) Chronic back pain: Long-standing back pain from old injuries. - Hold methocarbamol for now - Tylenol PRN (5) DVT prophylaxis: Heparin 5000 units SQ Q12h Admission and Anticipated Discharge Date Admission Date: August 14, 2019 Subjective Still having nausea and vomiting. Reports it has been ongoing all night. Reports no fevers/chills, chest pain, shortness of breath, abdominal pain. Physical Exam Constitutional: WD/WN, vitals as above + acute distress Eyes: EOM intact bilaterally; no conjunctival abnormality ENMT: external ear and nose normal, oropharynx normal Neck: trachea midline, no thyromegaly normal visual inspection Respiratory: normal respiratory effort, lungs clear to auscultation no respiratory distress Cardiovascular: RRR, no murmur, no edema Gastrointestinal (Abdomen): Inspection/Auscultation: abdomen normal to inspection; abdomen not distended Musculoskeletal: no cyanosis or clubbing, extremities motor strength 5/5 Skin: no rashes, warm and dry Neurologic: moves all extremities and awake Psychiatric: Orientation: alert, oriented to person and cooperative Results & Data Results & Data ([facility]) Vital Signs (Past 12 Hours) Vital Signs Temp Pulse Resp BP BP Pulse Ox 08/15/19 15:18 36.9 C 86 18 108/69 96 06/09/20 07:00 36.5 C 84 18 105/71 95 PG Care Time/CCT Total # of Minutes Spent Total Time Spent with Patient: Total time spent is greater than 50% in coordination of care (as documented) at patient's floor/unit and/or counseling patient: Coding Level of Care Code 02182 Subseq Hosp Care Lvl 3 Diagnoses SHAGGY (acute kidney injury) N17.9 Vomiting R11.10 Hypertension I10 Chronic back pain M54.9; G89.29 DVT prophylaxis Z29.9
[2019-08-15 15:42] LABS: Albumin Level 3.3 gm/dl (3.4-5.0); Calcium 8.7 mg/dl (8.5-10.1); Creatinine Clr Calc Pharmacy 15.2 ml/min; Est GFR (African American) 14.2; Est GFR (Non-African American) 12.2; Potassium 3.9 mmol/L (3.5-5.1); Uric Acid 25.1 mg/dl (2.6-7.2)
[2019-08-15 15:52] LABS: BUN Creatinine Ratio 47.1 (10-20)
[2019-08-15] MEDS ORDERED: SODIUM CHLORIDE 0.45 % 1,000 ML IV SCH (17:00)
[2019-08-15] MEDS ORDERED: SODIUM BICARBONATE 650 MG TAB PO SCH (17:30)
[2019-08-15] MEDS: SODIUM BICARBONATE 8.4% IV SCH (19:48)
[2019-08-15] MEDS: DEXTROSE 5% IV SCH (19:48)
[2019-08-16] MEDS: SODIUM BICARBONATE 8.4% IV SCH ×6 (02:20→20:45)
[2019-08-16] MEDS: DEXTROSE 5% IV SCH ×6 (02:20→20:45)
--- NOTE | 2019-08-16 05:28 | Billing Data ---
Date of Service August 16, 2019 Coding Level of Care Code 31804 Initial Inpt Care Lvl 3
[2019-08-16 07:37] LABS: Hematocrit (blood only) 44.2 % (42-52); Hemoglobin 14.2 g/dL (14.0-18.0); Mean Corpuscular Hemoglobin 32.1 pg (25-34); Mean Corpuscular Hgb Conc 32.1 g/dL (32-36); Mean Corpuscular Volume 99.8 fL (80-100); RDW Coefficient of Variation 13.3 % (11.5-14.5); RDW Standard Deviation 48.7 fL (36.4-46.3); Red Blood Count 4.43 M/uL (4.7-6.1); White Blood Count 5.82 K/uL (4.8-10.8)
[2019-08-16 07:41] LABS: Mean Platelet Volume 13.5 fL (7.4-10.4); Platelet Count 89 K/uL (130-400); Platelet Estimate Decreased (Normal)
[2019-08-16] MEDS: HEPARIN SOD 5,000 UNIT/0.5 ML VIAL SQ SCH ×2 (07:47→20:56)
[2019-08-16 07:55] LABS: Calcium 8.6 mg/dl (8.5-10.1); Creatinine Clr Calc Pharmacy 22.5 ml/min; Est GFR (African American) 22.8; Est GFR (Non-African American) 19.7; Phosphorus 3.2 mg/dl (2.5-4.9); Potassium 3.3 mmol/L (3.5-5.1)
[2019-08-16 08:02] LABS: BUN Creatinine Ratio 46.8 (10-20); Uric Acid 19.4 mg/dl (2.6-7.2)
[2019-08-16] MEDS: POTASSIUM CHLORIDE / WTR 10 MEQ/100 ML PLCT IV SCH ×3 (08:53→20:56)
[2019-08-16 09:26] LABS: Appearance Urine Turbid (Clear); Bilirubin Urine Negative (Negative); Blood Urine 3+ (Negative); Color Urine Yellow; Glucose Urine UA Negative (Negative); Ketones Urine Negative (Negative); Leukocyte Esterase Urine Trace (Negative); Nitrite Urine Negative (Negative); Protein Urine Negative (Negative); Specific Gravity Urine 1.019 (1.000-1.030); Urobilinogen Urine Negative (Negative)
--- NOTE | 2019-08-16 09:39 | Nephrology Progress Note ---
Date of Service August 16, 2019 Assessment & Plan (1) SHAGGY (acute kidney injury): Clinically consistent with dehydration, possible uric acid nephropathy and ATN. Aspirin potentially contributory but salicylate level acceptable. Non- oliguric. Creatinine improving. Baseline creatinine 0.8 mg/dL. Kidneys otherwise normal in size and appearance on CT. Bladder distended on CT with some fullness of left collecting system but no obvious obstruction. Hay intact but certainly may be removed. Tolerating IVF. Notable free water deficit and struggling to tolerate oral fluids. IVF switched to D5W + 75 mEq NaHCO3 this AM. Given hyperuricemia, goal will be to keep urine alkaline. Volume status remains hypovolemic. 20 mEq KCl provided this AM for hypokalemia. Document I/O's. Will repeat metabolic profile this evening and adjust fluids as needed. Hopefully Federico will be able to tolerate oral fluids soon. (2) Hypertension: Hold losartan and spironolactone. Admission and Anticipated Discharge Date Admission Date: August 14, 2019 Subjective No acute events overnight. Nausea persists but improved. Federico remains unable to tolerate anything by mouth. No fevers. Tolerating IVF well. Hay remains intact. Review of Systems Review of Systems: All systems reviewed & are unremarkable except as noted in HPI & below Physical Exam Constitutional: well developed; no acute distress Eyes: no scleral abnormality and no corneal abnormality ENMT: Mouth: + dry oral mucous membranes; no oral mucosal abnormality Neck: normal visual inspection and trachea midline Respiratory: normal respiratory effort Auscultation: lungs clear to auscultation bilaterally Cardiovascular: Rate/Rhythm: regular rate Heart Sounds: normal S1 and normal S2 Extremities: no edema Musculoskeletal: Extremities: no cyanosis and no clubbing Skin: normal turgor; no lesions Neurologic: Motor/Sensory: no tremor and no asterixis Psychiatric: Orientation: alert and oriented x 3 Results & Data ([facility]) Vital Signs (Past 12 Hours) Vital Signs Temp Pulse Resp BP Pulse Ox 08/16/19 07:34 37.7 C H 86 16 103/65 95 08/15/19 23:47 36.9 C 87 20 109/64 97 Laboratory Results Laboratory Results - last 24 hr 08/15/19 08/15/19 08/15/19 14:44 16:52 17:37 WBC RBC Hgb Hct MCV MCH MCHC RDW Std Deviation RDW Coeff of [place] Plt Count MPV Platelet Estimate Sodium 153 H Potassium 3.9 Chloride 115 H Carbon Dioxide 25 Anion Gap 13.0 H BUN 219 H Creatinine 4.64 H* D Est Cr Clr Drug Dosing 15.2 Est GFR ( Amer) 14.2 Est GFR (Non-Af Amer) 12.2 BUN/Creatinine Ratio 47.1 H Glucose 124 H Lactate 0.9 Uric Acid 25.1 H Calcium 8.7 Phosphorus 6.0 H Magnesium Total Creatine Kinase 143 Albumin 3.3 L Urine Color Urine Appearance Urine pH Ur Specific [place] Urine Protein Urine Glucose (UA) Urine Ketones Urine Blood Urine Nitrite Urine Bilirubin Urine Urobilinogen Ur Leukocyte Esterase Salicylates < 1.7 L 08/16/19 08/16/19 08/16/19 06:47 06:47 09:01 WBC 5.82 RBC 4.43 L Hgb 14.2 Hct 44.2 MCV 99.8 MCH 32.1 MCHC 32.1 RDW Std Deviation 48.7 H RDW Coeff of [place] 13.3 Plt Count 89 L MPV 13.5 H Platelet Estimate Decreased L Sodium 155 H Potassium 3.3 L D Chloride 115 H Carbon Dioxide 36 H Anion Gap 4.0 BUN 147 H Creatinine 3.13 H D Est Cr Clr Drug Dosing 22.5 Est GFR ( Amer) 22.8 Est GFR (Non-Af Amer) 19.7 BUN/Creatinine Ratio 46.8 H Glucose 143 H Lactate Uric Acid 19.4 H Calcium 8.6 Phosphorus 3.2 D Magnesium 4.0 H Total Creatine Kinase Albumin Urine Color Pending Urine Appearance Pending Urine pH Pending Ur Specific [place] Pending Urine Protein Pending Urine Glucose (UA) Pending Urine Ketones Pending Urine Blood Pending Urine Nitrite Pending Urine Bilirubin Pending Urine Urobilinogen Pending Ur Leukocyte Esterase Pending Salicylates PG Care Time/CCT Total # of Minutes Spent Total Time Spent with Patient: Total time spent is greater than 50% in coordination of care (as documented) at patient's floor/unit and/or counseling patient: Coding Level of Care Code 87145 Subseq Hosp Care Lvl 3 Diagnoses SHAGGY (acute kidney injury) N17.9 Hypertension I10
[2019-08-16 09:55] LABS: Mucus Urine Present (None Prsent); Uric Acid Crystals Urine Present (None Prsent)
[2019-08-16 09:56] LABS: Bacteria Urine 1+ (Negative); RBC Urine 0-4 /hpf (0-4); WBC Urine 0-5 /hpf (0-5)
[2019-08-16] MEDS: ONDANSETRON INJ 2 MG/ML 2 ML VIAL IV PRN (10:59)
[2019-08-16] MEDS ORDERED: PROCHLORPERAZINE MALEATE 5 MG TAB PO PRN (13:05)
--- NOTE | 2019-08-16 13:09 | Hospitalist Progress Note ---
Date of Service August 16, 2019 Assessment & Plan (1) SHAGGY (acute kidney injury): Unclear cause at present. Denies any LUTS that would indicate enlarged prostate and post-renal. Has been having nausea and vomiting x 10 days, so could be pre-renal. Also has been using aspirin 1 g (325 mg x 3 pills) once a day for "40 years," so NSAID use may be contributing. May be a combination of factors. - Appreciate nephrology consult - Renal ultrasound on 08/14 [address] CT a/p on 08/14/2019 showed no major abn ormalities. - GISELE/ANCA pending - Continue IV fluids per nephrology -> Had a anion gap metabolic acidosis initially which has resolved. 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 (2) Vomiting: Unclear whether he had a primary GI complaint that caused his initial nausea and vomiting or if it was high BUN from SHAGGY. Denies eating out, eating any new/different foods, sick contacts, etc. - Presently still with symptoms. Treating with Zofran and Compazine PRN. Phenergan made him feel loopy, and he doesn't want to try again. (3) Hypertension: BP presently 100/65. - Holding losartan and spironolactone for SHAGYG - Holding amlodipine for normal BP for now. (4) Chronic back pain: Long-standing back pain from old injuries. - Hold methocarbamol for now - Tylenol PRN (5) DVT prophylaxis: Heparin 5000 units SQ Q12h Admission and Anticipated Discharge Date Admission Date: August 14, 2019 Subjective Still with nausea and vomiting. Overall, he feels less "sick," but otherwise is not dramatically different. Reports no fevers/chills, chest pain, shortness of breath, abdominal pain. Physical Exam Constitutional: WD/WN, vitals as above + acute distress Eyes: EOM intact bilaterally; no conjunctival abnormality ENMT: external ear and nose normal, oropharynx normal Neck: trachea midline, no thyromegaly normal visual inspection Respiratory: normal respiratory effort, lungs clear to auscultation no respiratory distress Cardiovascular: RRR, no murmur, no edema Gastrointestinal (Abdomen): Inspection/Auscultation: abdomen normal to inspection; abdomen not distended Percussion/Palpation: abdomen soft; abdomen nontender, no guarding and abdomen not rigid Musculoskeletal: no cyanosis or clubbing, extremities motor strength 5/5 Skin: no rashes, warm and dry Neurologic: moves all extremities and awake Psychiatric: Orientation: alert, oriented to person and cooperative Results & Data Results & Data ([facility]) Vital Signs (Past 12 Hours) Vital Signs Temp Pulse Resp BP Pulse Ox 08/16/19 07:34 37.7 C H 86 16 103/65 95 PG Care Time/CCT Total # of Minutes Spent Total Time Spent with Patient: Total time spent is greater than 50% in coordination of care (as documented) at patient's floor/unit and/or counseling patient: Coding Level of Care Code 30569 Subseq Hosp Care Lvl 2 Diagnoses SHAGGY (acute kidney injury) N17.9 Vomiting R11.10 Hypertension I10 Chronic back pain M54.9; G89.29 DVT prophylaxis Z29.9
[2019-08-16 19:36] LABS: BUN Creatinine Ratio 39.8 (10-20); Creatinine Clr Calc Pharmacy 27.9 ml/min; Est GFR (African American) 29.6; Est GFR (Non-African American) 25.5; Potassium 3.1 mmol/L (3.5-5.1)
[2019-08-16] MEDS: D5W AND 1/4NSS + 20MEQ KCL 20 MEQ/1,000 ML BAG IV SCH (20:55)
[2019-08-16] MEDS ORDERED: FAMOTIDINE 20MG IV PUSH 20 MG/5 ML SYR IV STA (23:31)
[2019-08-17] MEDS: D5W AND 1/4NSS + 20MEQ KCL 20 MEQ/1,000 ML BAG IV SCH ×4 (02:00→19:32)
[2019-08-17] MEDS: ONDANSETRON INJ 2 MG/ML 2 ML VIAL IV PRN ×2 (07:38→21:59)
[2019-08-17] MEDS: HEPARIN SOD 5,000 UNIT/0.5 ML VIAL SQ SCH (07:38)
[2019-08-17 07:57] LABS: Appearance Urine Clear (Clear); Bacteria Urine Automated Negative (Negative); Bilirubin Urine Negative (Negative); Blood Urine 2+ (Negative); Color Urine Yellow; Glucose Urine UA Negative (Negative); Ketones Urine Negative (Negative); Leukocyte Esterase Urine 1+ (Negative); Nitrite Urine Negative (Negative); Specific Gravity Urine 1.016 (1.000-1.030); Urobilinogen Urine Negative (Negative); pH Urine >= 9.0 (4.5-7.5)
[2019-08-17 07:59] LABS: Protein Urine Negative (Negative); Sulfosalicylic Acid Urine Negative (Negative)
[2019-08-17 08:58] LABS: Albumin Globulin Ratio 0.7 (0.9-2); Albumin Level 2.7 gm/dl (3.4-5.0); Bilirubin,Total 0.5 mg/dl (0.2-1); Calcium 8.4 mg/dl (8.5-10.1); Creatinine Clr Calc Pharmacy 35.2 ml/min; Est GFR (African American) 39.1; Est GFR (Non-African American) 33.8; Globulin 3.9 gm/dl (2.5-4.0); Magnesium 2.8 mg/dl (1.8-2.4); Phosphorus 1.7 mg/dl (2.5-4.9); Potassium 3.4 mmol/L (3.5-5.1); Total Protein 6.6 gm/dl (6.4-8.2); Uric Acid 11.6 mg/dl (2.6-7.2)
[2019-08-17] MEDS ORDERED: SODIUM PHOSPHATE 3 MMOL/1 ML INFUSION IV STA (09:06)
--- NOTE | 2019-08-17 09:17 | Nephrology Progress Note ---
Date of Service August 17, 2019 Assessment & Plan (1) SHAGGY (acute kidney injury): Clinically consistent with dehydration, NSAID use, uric acid nephropathy, and ATN. Tolerating IVF well. Creatinine continues to improve. Uremia also improving with management. Free water deficit persist (~4.5 L). Unable to tolerate medications or fluids by mouth. IVF switched to 1/4 NaCl + 20 KCl @ 200 ml/h yesterday evening. Urine appropriately alkaline. Noted UA crystals in urine yesterday AM. Serum UA level improving. Hypokalemia and hypophosphatemia noted. magnesium falling. K phos x 30 mmol IV ordered. Will continue to monitor labs twice daily and replace as needed. No adjustment to IVF infusion at this time. Baseline creatinine 0.8 mg/dL. Hay may be removed per nursing protocol. Hopefully as uremia improves, oral free water intake will improve and U loss of free water will slow down. (2) Hypertension: Hold losartan and spironolactone. Admission and Anticipated Discharge Date Admission Date: August 14, 2019 Subjective No acute events overnight. Nausea and vomiting persist. Mr. Tariq continues to struggle to take anything by mouth. He denies significant abdominal pain. No BM. Hay draining clear clementine urine. No fevers. Tolerating IVF well. Thirsty but not able to tolerate oral fluids. Review of Systems Review of Systems: All systems reviewed & are unremarkable except as noted in HPI & below Physical Exam Constitutional: well developed; no acute distress Eyes: no scleral abnormality and no corneal abnormality ENMT: Mouth: + dry oral mucous membranes; no oral mucosal abnormality Neck: normal visual inspection and trachea midline Respiratory: normal respiratory effort Auscultation: lungs clear to auscultation bilaterally Cardiovascular: Rate/Rhythm: regular rate Heart Sounds: normal S1 and normal S2 Extremities: no edema Musculoskeletal: Extremities: no cyanosis and no clubbing Skin: normal turgor; no lesions Neurologic: Motor/Sensory: no tremor and no asterixis Psychiatric: Orientation: alert and oriented x 3 Results & Data ([facility]) Vital Signs (Past 12 Hours) Vital Signs Temp Pulse Resp BP BP Pulse Ox 08/17/19 06:50 36.7 C 72 17 107/68 92 08/16/19 23:41 37.1 C 77 17 108/70 91 Laboratory Results Laboratory Results - last 24 hr 0608/16/19 08/17/19 09:01 19:09 07:45 WBC RBC Hgb Hct MCV MCH MCHC Plt Count Sodium 157 H* 156 H* Potassium 3.1 L 3.4 L Chloride 112 H 115 H Carbon Dioxide 42 H* 37 H Anion Gap 3.0 4.0 BUN 100 H 66 H Creatinine 2.52 H D 2.00 H D Est Cr Clr Drug Dosing 27.9 35.2 Est GFR ( Amer) 29.6 39.1 Est GFR (Non-Af Amer) 25.5 33.8 BUN/Creatinine Ratio 39.8 H 33.0 H Glucose 158 H 127 H Uric Acid 11.6 H Calcium 8.0 L 8.4 L Phosphorus 1.7 L D Magnesium 2.8 H Total Bilirubin 0.5 AST 49 H ALT 61 Alkaline Phosphatase 44 L Total Protein 6.6 Albumin 2.7 L Globulin 3.9 Albumin/Globulin Ratio 0.7 L Urine Color Yellow Urine Appearance Turbid A Urine pH 5.0 Ur Specific [place] 1.019 Urine Protein Negative Urine Glucose (UA) Negative Urine Ketones Negative Urine Blood 3+ H Urine Nitrite Negative Urine Bilirubin Negative Urine Urobilinogen Negative Ur Leukocyte Esterase Trace H Urine WBC (Auto) Urine RBC (Auto) U Hyaline Cast (Auto) U Epithel Cells (Auto) Urine Bacteria (Auto) Urine RBC 0-4 Urine WBC 0-5 Ur Epithelial Cells 5-10 H Uric Acid Crystals Present A Urine Bacteria 1+ H Urine Mucus Present A 08/17/19 08/17/19 07:45 07:46 WBC Pending RBC Pending Hgb Pending Hct Pending MCV Pending MCH Pending MCHC Pending Plt Count Pending Sodium Potassium Chloride Carbon Dioxide Anion Gap BUN Creatinine Est Cr Clr Drug Dosing Est GFR ( Amer) Est GFR (Non-Af Amer) BUN/Creatinine Ratio Glucose Uric Acid Calcium Phosphorus Magnesium Total Bilirubin AST ALT Alkaline Phosphatase Total Protein Albumin Globulin Albumin/Globulin Ratio Urine Color Yellow Urine Appearance Clear Urine pH >= 9.0 H Ur Specific [place] 1.016 Urine Protein Negative Urine Glucose (UA) Negative Urine Ketones Negative Urine Blood 2+ H Urine Nitrite Negative Urine Bilirubin Negative Urine Urobilinogen Negative Ur Leukocyte Esterase 1+ H Urine WBC (Auto) 5-10 H Urine RBC (Auto) 10-30 H U Hyaline Cast (Auto) 1-5 U Epithel Cells (Auto) 10-20 H Urine Bacteria (Auto) Negative Urine RBC Urine WBC Ur Epithelial Cells Uric Acid Crystals Urine Bacteria Urine Mucus PG Care Time/CCT Total # of Minutes Spent Total Time Spent with Patient: Total time spent is greater than 50% in coordination of care (as documented) at patient's floor/unit and/or counseling patient: Coding Level of Care Code 42998 Subseq Hosp Care Lvl 3 Diagnoses SHAGGY (acute kidney injury) N17.9 Hypertension I10
[2019-08-17] MEDS ORDERED: SODIUM PHOSPHATE 30 MMOL in SODIUM CHLORIDE 0.9% 500 ML IV ONE (09:30)
[2019-08-17 09:46] LABS: Hematocrit (blood only) 43.8 % (42-52); Hemoglobin 13.3 g/dL (14.0-18.0); Mean Corpuscular Hemoglobin 31.2 pg (25-34); Mean Corpuscular Hgb Conc 30.4 g/dL (32-36); Mean Corpuscular Volume 102.8 fL (80-100); Platelet Count 86 K/uL (130-400); Platelet Estimate Decreased (Normal); Red Blood Count 4.26 M/uL (4.7-6.1); White Blood Count 6.47 K/uL (4.8-10.8)
[2019-08-17] MEDS: PANTOprazole 40 MG in SYRINGE 0 ML IV SCH ×2 (10:03→21:29)
--- NOTE | 2019-08-17 13:10 | Hospitalist Progress Note ---
Date of Service August 17, 2019 Assessment & Plan (1) Hematemesis: Occurred mildly overnight (a few bloody streaks) overnight of 08/15, then one episode of micha hematemesis on the morning of 08/16. - Started PPI IV BID immediately - NPO - GI consulted -> Likely from NSAID use - Monitor hgb -> Drifting down, but still >13, so no acute need for transfusion. (2) Thrombocytopenia: Platelets were 160 when he was admitted (baseline ~200). - Down to 86 on 08/16. Likely suppression from acute illness. HIT unlikely as 4T score is only 3 (too fast for HIT, no thrombosis seen, other causes). - Holding heparin for hematemesis; monitor plts. (3) SHAGGY (acute kidney injury): Unclear cause at present. Denies any LUTS that would indicate enlarged prostate and post-renal. Has been having nausea and vomiting x 10 days, so could be pre-renal. Also has been using aspirin 1 g (325 mg x 3 pills) once a day for "40 years," so NSAID use may be contributing. May be a combination of factors. - Appreciate nephrology consult - Renal ultrasound on 08/14 [address] CT a/p on 08/14/2019 showed no major abnormalities. - GISELE/ANCA pending - Continue IV fluids per nephrology -> Had a anion gap metabolic acidosis initially which has resolved. 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 - On 08/16, BUN/Cr is improving. 66/2. (4) Vomiting: Unclear whether he had a primary GI complaint that caused his initial nausea and vomiting or if it was high BUN from SHAGGY. Denies eating out, eating any new/different foods, sick contacts, etc. - Presently still with symptoms. Treating with Zofran and Compazine PRN. Phenergan made him feel loopy, and he doesn't want to try again. (5) Hypertension: BP presently 110/65. - Holding losartan and spironolactone for SHAGGY - Holding amlodipine for normal BP for now. (6) Chronic back pain: Long-standing back pain from old injuries. - Hold methocarbamol for now - Tylenol PRN (7) DVT prophylaxis: Holding heparin for hematemesis today. Admission and Anticipated Discharge Date Admission Date: August 14, 2019 Subjective Had an episode of hematemesis this morning. Overnight, he had some bloody streaks in emesis, but these were the first since admission. Reports no fevers/chills, chest pain, shortness of breath, abdominal pain. Physical Exam Constitutional: WD/WN, vitals as above + acute distress Eyes: EOM intact bilaterally; no conjunctival abnormality ENMT: external ear and nose normal, oropharynx normal Neck: trachea midline, no thyromegaly normal visual inspection Respiratory: normal respiratory effort, lungs clear to auscultation no respiratory distress Cardiovascular: RRR, no murmur, no edema Gastrointestinal (Abdomen): Inspection/Auscultation: abdomen normal to inspection; abdomen not distended Percussion/Palpation: abdomen soft; abdomen nontender, no guarding and abdomen not rigid Musculoskeletal: no cyanosis or clubbing, extremities motor strength 5/5 Skin: no rashes, warm and dry Neurologic: moves all extremities and awake Psychiatric: Orientation: alert, oriented to person and cooperative Results & Data Results & Data ([facility]) Vital Signs (Past 12 Hours) Vital Signs Temp Pulse Resp BP Pulse Ox 08/17/19 06:50 36.7 C 72 17 107/68 92 PG Care Time/CCT Total # of Minutes Spent Total Time Spent with Patient: Total time spent is greater than 50% in coordination of care (as documented) at patient's floor/unit and/or counseling patient: Coding Level of Care Code 26582 Subseq Hosp Care Lvl 3 Diagnoses Hematemesis K92.0 Thrombocytopenia D69.6 SHAGGY (acute kidney injury) N17.9 Vomiting R11.10 Hypertension I10 Chronic back pain M54.9; G89.29 DVT prophylaxis Z29.9
[2019-08-17] MEDS ORDERED: SODIUM CHLORIDE 0.9% 1000ML 1,000 ML IV SCH (14:30)
--- NOTE | 2019-08-17 14:42 | History & Physical Report ---
Date of Service August 17, 2019 History of Present Illness Chief Complaint: Hematemesis Primary Care Provider: Lobito Orourke Jr, For EGD Allergies Allergy/AdvReac Type Severity Reaction Status Date / Time bee venom protein (honey bee) Allergy Severe ANAPHYLACTIC Verified 08/14/19 22:51 REACTION A CHILD Home Medications Home Medications Medication Instructions Recorded Confirmed Type amlodipine 10 mg PO DAILY 08/14/19 08/14/19 History epinephrine [EpiPen] 0.3 mg IM DIRECTED PRN 08/14/19 08/14/19 History losartan 100 mg PO DAILY 08/14/19 08/14/19 History methocarbamol 750 mg PO QID 08/14/19 08/14/19 History metoclopramide HCl 10 mg PO .Q6-8HRS PRN 08/14/19 08/14/19 History omeprazole 40 mg PO QAM 08/14/19 08/14/19 History spironolactone 25 mg PO DAILY 08/14/19 08/14/19 History Past Med/Surg History Social History Preferred Language: Slovenian Communication Ability: Effective 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 Required: No Beliefs That Will Affect Care: None Current Living Situation: Spouse Other Information That Helps Us Care for You: No Feels Safe at Home: Yes Safety Concerns: Feels Safe At This Time Smoking Status: Former smoker Hx Alcohol Use: No Hx Substance Use: No Physical Exam Constitutional: well developed and well nourished Respiratory: normal respiratory effort Cardiovascular: Rate/Rhythm: regular rate and regular rhythm Gastrointestinal (Abdomen): Percussion/Palpation: abdomen soft midline scar Results & Data Vital Signs (Past 12 Hours) Vital Signs Temp Pulse Resp BP Pulse Ox 08/17/19 14:13 37.2 C 75 20 116/82 92 08/17/19 06:50 36.7 C 72 17 107/68 92
[2019-08-17] MEDS ORDERED: fentaNYL citrate 100 MCG/2 ML VIAL ONE (14:56)
[2019-08-17] MEDS ORDERED: MIDAZOLAM HCL 1 MG/ML 2ML VIAL ONE (14:56)
[2019-08-17] MEDS ORDERED: SUCCINYLCHOLINE 100MG/5ML SYR IV ONE (14:56)
[2019-08-17] MEDS ORDERED: LIDOCAINE HCL 2% 2 ML VIAL/AMP(20MG/ML) INFIL ONE (14:56)
[2019-08-17] MEDS ORDERED: ROCURONIUM BROMIDE 10 MG/ML 5 ML VIAL IV ONE (14:56)
[2019-08-17] MEDS ORDERED: PROPOFOL IV EMULSION 10 MG/ML 20 ML VIAL IV ONE (14:56)
[2019-08-17] MEDS ORDERED: SUCCINYLCHOLINE CHLORIDE 20 MG/ML 10 ML VIAL IV ONE (14:58)
[2019-08-17] MEDS ORDERED: ePHEDrine sulfate 50 MG/ML AMP IV PRN (15:06)
[2019-08-17] MEDS ORDERED: ATROPINE SULFATE 0.1 MG/ML 10ML SYR IV PRN (15:06)
[2019-08-17] MEDS ORDERED: fentaNYL citrate 100 MCG/2 ML VIAL IV PRN (15:06)
[2019-08-17] MEDS ORDERED: ONDANSETRON INJ 2 MG/ML 2 ML VIAL IV PRN (15:06)
--- NOTE | 2019-08-17 15:12 | Anesthesiology Consultation ---
Date of Service August 17, 2019 History Surgery Operation Date: 08/17/19 12:50 Proposed Procedures p Esophagogastroduodenoscopy Stiven Puentes Height/Weight Height: 5 ft 8 in Weight: 71.9 kg Allergies Allergy/AdvReac Type Severity Reaction Status Date / Time bee venom protein (honey bee) Allergy Severe ANAPHYLACTIC Verified 08/14/19 22:51 REACTION A CHILD Medications Home Medications Medication Instructions Recorded Confirmed Last Taken amlodipine 10 mg PO DAILY 08/14/19 08/14/19 Unknown epinephrine [EpiPen] 0.3 mg IM DIRECTED PRN 08/14/19 08/14/19 Unknown losartan 100 mg PO DAILY 08/14/19 08/14/19 Unknown methocarbamol 750 mg PO QID 08/14/19 08/14/19 Unknown metoclopramide HCl 10 mg PO .Q6-8HRS PRN 08/14/19 08/14/19 Unknown omeprazole 40 mg PO QAM 08/14/19 08/14/19 Unknown spironolactone 25 mg PO DAILY 08/14/19 08/14/19 Unknown Active Medications Generic Name Dose Route Start Last Admin Trade Name Freq PRN Reason Stop Dose Admin Potassium Chloride/Dextrose/Sod Cl 20 meq in 1,000 mls @ 200 mls/hr 08/16/19 21:00 08/17/19 14:37 D5w And 1/4nss + 20meq Kcl IV 09/15/19 20:59 0 mls/hr .Q5H GRADY Infusion Pantoprazole Sodium 40 mg/ 10 mls @ 5 mls/min 08/17/19 09:30 08/17/19 10:03 Syringe IV 09/16/19 09:29 5 mls/min BID GRADY Administration Ondansetron HCl 4 mg 08/15/19 01:03 08/17/19 07:38 Zofran IV 09/14/19 01:02 4 mg Q6H PRN Administration Nausea Prochlorperazine 5 mg 08/16/19 13:05 08/16/19 14:18 Compazine PO 09/15/19 13:14 5 mg Q6H PRN Administration Nausea And Vomiting Zolpidem Tartrate 5 mg 08/15/19 01:03 08/15/19 22:42 Ambien PO 09/14/19 01:02 5 mg HS PRN Administration Sleep NPO Date Last Intake of Fluids: 08/17/19 Last Intake of Fluids Comment: per patient- at least 10 days since N/V started Last Intake of Solids Comment: per patient- at least 10 days since N/V started Past Medical History Medical History (Updated 08/17/19 @ 15:12 by Nathan Rizzo MD) SHAGGY (acute kidney injury) Chronic back pain Electrolyte abnormality Clinically consistent with dehydration, NSAID use, uric acid nephropathy, and ATN. Tolerating IVF well. Creatinine continues to improve. Uremia also improving with management. Free water deficit persist (~4.5 L). Unable to tolerate medications or fluids by mouth. IVF switched to 1/4 NaCl + 20 KCl @ 200 ml/h yesterday evening. Urine appropriately alkaline. Noted UA crystals in urine yesterday AM. Serum UA level improving. Hypokalemia and hypophosphatemia noted. magnesium falling. K phos x 30 mmol IV ordered. Will continue to monitor labs twice daily and replace as needed. No adjustment to IVF infusion at this time. Hematemesis Hypertension Thrombocytopenia Vomiting Exercise / Class Metabolic Activity II 4-5 Yardwork/Stairs/Walk up hill Past Surgical History Surgical History H/O right hemicolectomy shoulder surgery Past Anesthesia History No Hx of Anesthesia Complications and No Family Hx of Anesthesia Complications History of PONV No Hx of PONV and No Hx of Motion Sickness Social History Smoking Status: Former smoker Do You Dip or Chew Tobacco: No Hx Alcohol Use: No Hx Substance Use: No Physical Exam Vital Signs Last Vital Signs Temp 37.1 C 08/17/19 14:46 Pulse 74 08/17/19 14:46 Resp 18 08/17/19 14:46 BP 128/74 08/17/19 14:46 Pulse Ox 94 08/17/19 14:46 Testing Laboratory Results 08/17/19 07:45 08/17/19 07:45 Urine Color Yellow 08/17/19 07:46 Urine Appearance Clear (Clear) 08/17/19 07:46 Urine pH >= 9.0 (4.5-7.5) H 08/17/19 07:46 Ur Specific [place] 1.016 (1.000-1.030) 08/17/19 07:46 Urine Protein Negative (Negative) 08/17/19 07:46 Urine Glucose (UA) Negative (Negative) 08/17/19 07:46 Urine Ketones Negative (Negative) 08/17/19 07:46 Urine Nitrite Negative (Negative) 08/17/19 07:46 Ur Leukocyte Esterase 1+ (Negative) H 08/17/19 07:46 Urine WBC (Auto) 5-10 /hpf (0-5) H 08/17/19 07:46 Urine RBC (Auto) 10-30 /hpf (0-4) H 08/17/19 07:46 U Hyaline Cast (Auto) 1-5 /lpf (0-5) 08/17/19 07:46 U Epithel Cells (Auto) 10-20 /lpf (0-5) H 08/17/19 07:46 Urine Bacteria (Auto) Negative (Negative) 08/17/19 07:46 Urine RBC 0-4 /hpf (0-4) 08/16/19 09:01 Urine WBC 0-5 /hpf (0-5) 08/16/19 09:01 Ur Epithelial Cells 5-10 /lpf (0-5) H 08/16/19 09:01 Electrocardiogram Date: 08/14/19 Findings: + NSR @ (99) Normal sinus rhythm Low voltage QRS Septal infarct (cited on or before 26-JAN-2000) Nonspecific ST and T wave abnormality Abnormal ECG When compared with ECG of 28-MAY-2010 09:18, Nonspecific T wave abnormality now evident in L ateral leads Confirmed by Kade Rowley ([id number]) on 08/15/2019 6:42:07 AM
--- NOTE | 2019-08-17 15:43 | GI REPORT ---
Patient Name: Federico Tariq Procedure Date: 08/17/2019 3:02 PM Date of : 1955 Admit Type: Inpatient Age: 64 Gender: Male Attending MD: Karl Puentes MD Procedure: Upper GI endoscopy Providers: Karl Puentes MD Referring MD: Teofilo Garibay Md Indications: Hematemesis Medicines: General Anesthesia Complications: No immediate complications. Estimated Blood Loss: Estimated blood loss: none. Procedure: Pre-Anesthesia Assessment: - Prior to the procedure, a History and Physical was performed, and patient medications, allergies and sensitivities were reviewed. The patient's tolerance of previous anesthesia was reviewed. - The risks and benefits of the procedure and the sedation options and risks were discussed with the patient. All questions were answered and informed consent was obtained. After obtaining informed consent, the endoscope was passed under direct vision. Throughout the procedure, the patient's blood pressure, pulse, and oxygen saturations were monitored continuously. The Endoscope was introduced through the mouth, and advanced to the second part of duodenum. The upper GI endoscopy was accomplished without difficulty. The patient tolerated the procedure well. Findings: The Z-line was regular and was found 44 cm from the incisors. Red blood was found in the middle third of the esophagus. Multiple localized, non-bleeding erosions were found in the gastric body. There were no stigmata of recent bleeding. One non-bleeding superficial gastric ulcer with no stigmata of bleeding was found in the gastric antrum. The lesion was 5 mm in largest dimension. Area was successfully injected with 1 mL of a 1:10,000 solution of epinephrine for drug delivery. Estimated blood loss: none. One non-bleeding superficial duodenal ulcer with no stigmata of bleeding was found in the duodenal bulb. The lesion was 7 mm in largest dimension. Area was successfully injected with 2 mL of a 1:10,000 solution of epinephrine for drug delivery. Impression: - Z-line regular, 44 cm from the incisors. - Red blood in the middle third of the esophagus. - Non-bleeding erosive gastropathy. - Non-bleeding gastric ulcer with no stigmata of bleeding. Injected. - One non-bleeding duodenal ulcer with no stigmata of bleeding. Injected. - No specimens collected. Recommendation: - Return patient to hospital [facility] for ongoing care. Karl Puentes M.D. Karl Puentes MD 08/17/2019 3:43:11 PM This report has been signed electronically. Note Initiated On: 08/17/2019 3:02 PM Number of Addenda: 0 I attest to the content of the Intraoperative Record and orders documented therein, exceptions below {[id number]}
--- NOTE | 2019-08-17 16:10 | Consultation Report ---
DATE OF CONSULTATION: 08/17/2019 REASON FOR CONSULTATION: Abdominal pain, nausea, vomiting, and drop in blood count. HISTORY OF PRESENT ILLNESS: The patient is a 64-year-old who presented to the hospital with a 10-day history of progressively poor p.o. intake, vomiting and weakness. The patient was found to have signs of dehydration with a sodium of 157. His blood count had dropped significantly down to 13.3 from 17. Of note is that the patient was taking 3 full strength aspirin daily for at least a decade. At the time of hospitalization he was also noted to have an elevated BUN and creatinine consistent with acute kidney injury. The patient has been rehydrated and subsequently started to vomit bright red blood last night and then twice again today and GI consultation was requested. PAST MEDICAL HISTORY: Remarkable for hypertension, acid reflux. MEDICATIONS: Amlodipine, EpiPen, losartan, methocarbamol, metoclopramide, omeprazole and spironolactone. ALLERGIES: BEE VENOM. SOCIAL HISTORY: The patient is , former smoker, no alcohol. PHYSICAL EXAMINATION: GENERAL: The patient appears in no acute distress. He has multiple missing teeth. ABDOMEN: Soft. There is some mild epigastric tenderness to palpation but no mass or rebound. The patient underwent an EGD in the OR. He had general anesthesia and was intubated to protect his airway because of vomiting blood. He did have some fresh blood which was suctioned out of his mid and lower esophagus, but there were no lesions seen in the esophagus. In the stomach, there was scattered gastritis and mild erosions from nonsteroidal injury and in the antrum there was a 5 mm ulcer with clean base. This was injected with 0.5 mL of epinephrine with good blanching effect in the duodenal bulb. There was a 7 mm ulcer on the posterior wall, again with a clean base and no signs of bleeding or visible vessels. This was injected with 1.5 mL of epinephrine. The remaining exam of the duodenum was remarkable for a 6 mm sessile polyp in the second portion of the duodenum which appeared benign. IMPRESSION: The patient had hematemesis, vomiting, and abdominal pain, probably from his ulcers related to nonsteroidal. I would recommend that the patient discontinue aspirin at this point and continue on proton pump inhibitors as well as a bland diet. Follow the patient during his hospital stay.
--- NOTE | 2019-08-17 16:11 | Anesthesiology Progress Note ---
Date of Service August 17, 2019 Anesthesia Post Procedure Vital Signs Vital Signs: Temp Pulse Pulse Resp BP BP Pulse Ox 08/17/19 14:46 37.1 C 74 18 128/74 94 08/17/19 14:13 37.2 C 75 20 116/82 92 08/17/19 06:50 36.7 C 72 17 107/68 92 08/16/19 23:41 37.1 C 77 17 108/70 91 Transfer of Care Handoff Completed per policy Notes Mental Status: alert / awake / arousable and participated in evaluation Patient Amnestic to Procedure: Yes Nausea / Vomiting: adequately controlled Pain: adequately controlled Airway Patency, RR, SpO2: stable & adequate BP & HR: stable & adequate Hydration State: stable & adequate Anesthetic Complications: no major complications apparent and Pt Satisfied with anesthetic care
[2019-08-17 17:49] LABS: BUN Creatinine Ratio 26.2 (10-20); Calcium 7.6 mg/dl (8.5-10.1); Creatinine Clr Calc Pharmacy 41.8 ml/min; Est GFR (African American) 48.3; Est GFR (Non-African American) 41.7; Potassium 3.5 mmol/L (3.5-5.1)
[2019-08-18] MEDS: D5W AND 1/4NSS + 20MEQ KCL 20 MEQ/1,000 ML BAG IV SCH ×5 (00:04→21:37)
[2019-08-18] MEDS: ONDANSETRON INJ 2 MG/ML 2 ML VIAL IV PRN (07:43)
[2019-08-18 08:06] LABS: Hematocrit (blood only) 39.6 % (42-52); Hemoglobin 11.9 g/dL (14.0-18.0); Mean Corpuscular Hemoglobin 31.2 pg (25-34); Mean Corpuscular Hgb Conc 30.1 g/dL (32-36); Mean Corpuscular Volume 103.9 fL (80-100); Mean Platelet Volume 13.1 fL (7.4-10.4); Platelet Count 86 K/uL (130-400); Platelet Estimate Decreased (Normal); RDW Coefficient of Variation 12.9 % (11.5-14.5); RDW Standard Deviation 49.1 fL (36.4-46.3); Red Blood Count 3.81 M/uL (4.7-6.1); White Blood Count 7.29 K/uL (4.8-10.8)
[2019-08-18 08:23] LABS: Albumin Level 2.4 gm/dl (3.4-5.0); Calcium 7.6 mg/dl (8.5-10.1); Creatinine Clr Calc Pharmacy 48.2 ml/min; Est GFR (African American) 57.3; Est GFR (Non-African American) 49.4; Magnesium 1.6 mg/dl (1.8-2.4); Phosphorus 1.6 mg/dl (2.5-4.9); Potassium 3.5 mmol/L (3.5-5.1); Uric Acid 6.8 mg/dl (2.6-7.2)
[2019-08-18 08:26] LABS: Albumin Globulin Ratio 0.7 (0.9-2); Bilirubin,Total 0.5 mg/dl (0.2-1); Ferritin 1446.1 ng/ml (8-388); Globulin 3.6 gm/dl (2.5-4.0)
[2019-08-18] MEDS ORDERED: POTASSIUM PHOS 3 MMOL/1 ML INFUSION IV STA (08:46)
--- NOTE | 2019-08-18 08:58 | Nephrology Progress Note ---
Date of Service August 18, 2019 Assessment & Plan (1) SHAGGY (acute kidney injury): Related to dehydration, NSAID use, uric acid nephropathy, and ATN. Tolerating IVF well. Continues to struggle with oral intake due to gastropathy but this is improving. Free water deficit persists. Will provide an additional IV infusion with free water today. Overall significant improvement. IVF can be stopped once able to tolerate oral fluids. Serum uric acid level improving. Hypomagnesemia and hypophosphatemia likely related to urine losses and poor oral inake. 30 mmol Kphos and 2 grams MgSO4 IV ordered for this morning. Repeat metabolic profile, PO4, and Mg+ tomorrow AM. Baseline creatinine 0.8 mg/dL. Educated on importance of avoiding NSAIDS pending recovery. I discussed the plan of care with Dr. Garibay this AM. (2) Hypertension: Hold losartan and spironolactone. Amlodipine may be restarted as needed for hypertension. However, BP has been acceptable without medical therapy. Admission and Anticipated Discharge Date Admission Date: August 14, 2019 Subjective EGD completed yesterday for hematemesis. Notable gastropathy with gastric and duodenal ulcers noted. Nausea persists but improving. Mr. Tariq continues to struggle with oral intake. Intermittent vomiting without blood overnight. Denies abdominal pain. Thirsty but unable to take large amounts of fluid by mouth. Review of Systems Review of Systems: All systems reviewed & are unremarkable except as noted in HPI & below Physical Exam Constitutional: well developed and + thin; no acute distress Eyes: no scleral abnormality and no corneal abnormality ENMT: Mouth: + dry oral mucous membranes; no oral mucosal abnormality Neck: normal visual inspection and trachea midline Respiratory: normal respiratory effort Auscultation: lungs clear to auscultation bilaterally Cardiovascular: Rate/Rhythm: regular rate Heart Sounds: normal S1 and normal S2 Extremities: no edema Musculoskeletal: Extremities: no cyanosis and no clubbing Skin: normal turgor; no lesions Neurologic: Motor/Sensory: no tremor and no asterixis Psychiatric: Orientation: alert and oriented x 3 Results & Data ([facility]) Vital Signs (Past 12 Hours) Vital Signs Temp Pulse Resp BP BP Pulse Ox 08/18/19 07:23 36.9 C 70 20 112/70 94 08/17/19 23:24 36.8 C 74 18 121/71 94 Laboratory Results Laboratory Results - last 24 hr 08/17/19 08/17/19 08/18/19 07:45 16:54 07:04 WBC 6.47 RBC 4.26 L Hgb 13.3 L Hct 43.8 MCV 102.8 H MCH 31.2 MCHC 30.4 L RDW Std Deviation RDW Coeff of Kaleigh Plt Count 86 L MPV Platelet Estimate Decreased L Sodium 155 H 151 H Potassium 3.5 3.5 Chloride 118 H 114 H Carbon Dioxide 35 H 31 Anion Gap 2.0 L 6.0 BUN 44 H 26 H Creatinine 1.68 H D 1.46 H Est Cr Clr Drug Dosing 41.8 48.2 Est GFR ( Amer) 48.3 57.3 Est GFR (Non-Af Amer) 41.7 49.4 BUN/Creatinine Ratio 26.2 H 18.0 Glucose 113 H 129 H Uric Acid 6.8 Calcium 7.6 L 7.6 L Phosphorus 1.6 L Magnesium 1.6 L Iron 86 Transferrin 119 L Transferrin % Sat 51 H Ferritin 1446.1 H Total Bilirubin 0.5 AST 37 ALT 65 Alkaline Phosphatase 40 L Total Protein 6.0 L Albumin 2.4 L Globulin 3.6 Albumin/Globulin Ratio 0.7 L Vitamin B12 Folate 08/18/19 08/18/19 07:04 07:04 WBC 7.29 RBC 3.81 L Hgb 11.9 L Hct 39.6 L MCV 103.9 H MCH 31.2 MCHC 30.1 L RDW Std Deviation 49.1 H RDW Coeff of Kaleigh 12.9 Plt Count 86 L MPV 13.1 H Platelet Estimate Decreased L Sodium Potassium Chloride Carbon Dioxide Anion Gap BUN Creatinine Est Cr Clr Drug Dosing Est GFR ( Amer) Est GFR (Non-Af Amer) BUN/Creatinine Ratio Glucose Uric Acid Calcium Phosphorus Magnesium Iron Transferrin Transferrin % Sat Ferritin Total Bilirubin AST ALT Alkaline Phosphatase Total Protein Albumin Globulin Albumin/Globulin Ratio Vitamin B12 Pending Folate Pending PG Care Time/CCT Total # of Minutes Spent Total Time Spent with Patient: Total time spent is greater than 50% in coordination of care (as documented) at patient's floor/unit and/or counseling patient: Coding Level of Care Code 02830 Subseq Hosp Care Lvl 3 Diagnoses SHAGGY (acute kidney injury) N17.9 Hypertension I10
[2019-08-18] MEDS ORDERED: POTASSIUM PHOSPHATE 30 MMOL in SODIUM CHLORIDE 0.9% 500 ML IV ONE (09:30)
[2019-08-18] MEDS: MAGNESIUM SULFATE / D5W 1 GM/100 ML BAG IV SCH ×2 (09:41→12:07)
--- NOTE | 2019-08-18 12:20 | Hospitalist Progress Note ---
Date of Service August 18, 2019 Assessment & Plan (1) Hematemesis: Occurred mildly overnight (a few bloody streaks) overnight of 08/15, then one episode of micha hematemesis on the morning of 08/16. EGD on 08/16 showed 2 ulcers (one gastric and one duodenal) and gastropathy. - Continue PPI IV BID -> Will switch to PO when less emesis. - GI consulted -> Appreciate assistance. - Monitor hgb -> Drifting down, but still >11. (2) Thrombocytopenia: Platelets were 160 when he was admitted (baseline ~200). - Down to 86 on 08/16. Likely suppression from acute illness. HIT unlikely as 4T score is only 3 (too fast for HIT, no thrombosis seen, other causes). - Holding heparin for hematemesis; monitor plts. - Stable today. 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 - Appreciate nephrology consult - Renal ultrasound on 08/[address] a/p on 08/14/2019 showed no major abnormalities. - GSIELE/ANCA pending - Continue IV fluids per nephrology -> Had a anion gap metabolic acidosis initially which has resolved. 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 - On 08/16, BUN/Cr is improving. 26/1.45. Nausea maybe feeling some better. (4) Vomiting: Presumably due to gastritis/gastropathy/ulcers, worsened by uremia from kidney failure. - Presently still with symptoms. Treating with Zofran and Compazine PRN. Phenergan made him feel loopy, and he doesn't want to try again. (5) Hypertension: BP presently 110/70. - Holding losartan and spironolactone for SHAGGY - Holding amlodipine for normal BP for now. (6) Chronic back pain: Long-standing back pain from old injuries. - Hold methocarbamol for now - Tylenol PRN (7) DVT prophylaxis: Holding heparin for hematemesis. Admission and Anticipated Discharge Date Admission Date: August 14, 2019 Subjective Still having some mild hematemesis; however, less than yesterday. Still with nausea and emesis. Reports no fevers/chills, chest pain, shortness of breath, abdominal pain. Physical Exam Constitutional: WD/WN, vitals as above + acute distress Eyes: EOM intact bilaterally; no conjunctival abnormality ENMT: external ear and nose normal, oropharynx normal Neck: trachea midline, no thyromegaly normal visual inspection Respiratory: normal respiratory effort, lungs clear to auscultation no respiratory distress Cardiovascular: RRR, no murmur, no edema Gastrointestinal (Abdomen): Inspection/Auscultation: abdomen normal to inspection; abdomen not distended Percussion/Palpation: abdomen soft; abdomen nontender, no guarding and abdomen not rigid Musculoskeletal: no cyanosis or clubbing, extremities motor strength 5/5 Skin: no rashes, warm and dry Neurologic: moves all extremities and awake Psychiatric: Orientation: alert, oriented to person and cooperative Results & Data Results & Data ([facility]) Vital Signs (Past 12 Hours) Vital Signs Temp Pulse Resp BP Pulse Ox 08/18/19 07:23 36.9 C 70 20 112/70 94 PG Care Time/CCT Total # of Minutes Spent Total Time Spent with Patient: Total time spent is greater than 50% in coordination of care (as documented) at patient's floor/unit and/or counseling patient: Coding Level of Care Code 02965 Subseq Hosp Care Lvl 2 Diagnoses Hematemesis K92.0 Thrombocytopenia D69.6 SHAGGY (acute kidney injury) N17.9 Vomiting R11.10 Hypertension I10 Chronic back pain M54.9; G89.29 DVT prophylaxis Z29.9
[2019-08-18 12:59] LABS: Folate (Folic Acid) 4.57 ng/ml (>5.38)
[2019-08-18] MEDS: PANTOprazole 40 MG in SYRINGE 0 ML IV SCH ×2 (13:41→21:33)
[2019-08-18] MEDS: SUCRALFATE 1 GM/10 ML UDC PO SCH ×3 (13:42→20:44)
[2019-08-18] MEDS ORDERED: FOLIC ACID 1 MG TAB PO SCH (16:00)
--- NOTE | 2019-08-18 16:20 | Progress Notes ---
DATE: 08/18/2019 SUBJECTIVE: The patient continues to have nausea and frequent vomiting despite antiemetics. He said that even if he takes a sip of water within about 6 minutes, he will feel sick to his stomach and frequently vomit afterwards. All of his medications are being given IV at this time. He did have an EGD yesterday that showed both gastric and duodenal ulcers which were clean based, but were injected with epinephrine to prevent further bleeding. He has had no obvious bleeding since then. His blood count has gone from about 13 down to 11.9 today, probably from equilibration from IV fluids. The patient's folic acid returned low today and I ordered fully to be given IV. He continues to show several signs of volume contraction and electrolyte disorders. LABORATORY DATA: Sodium has actually come down from 157-151, chloride down to 114, BUN has gone from 44-26, creatinine 1.68-1.46 today. Calcium is still low at 7.6, phosphorus low at 1.6, magnesium low at 1.6. Albumin is 2.4. IMPRESSION: The patient is continuing to improve by labs. He still has several that are abnormal and are working on being corrected. I plan on adding the folic acid 1 mg a day IV for now as well as giving him Boost twice a day which should provide some extra nutrition as well as some additional vitamins that he probably is lacking. I will continue to follow the patient.
[2019-08-18] MEDS: FOLIC ACID 1 MG in SYRINGE 9.8 ML IV SCH (17:30)
[2019-08-18] MEDS ORDERED: PROCHLORPERAZINE 5 MG in SYRINGE 4 ML IV PRN (18:15)
[2019-08-19] MEDS: ONDANSETRON INJ 2 MG/ML 2 ML VIAL IV PRN ×2 (05:31→16:38)
[2019-08-19] MEDS: D5W AND 1/4NSS + 20MEQ KCL 20 MEQ/1,000 ML BAG IV SCH ×2 (05:32→11:57)
[2019-08-19] MEDS: SUCRALFATE 1 GM/10 ML UDC PO SCH ×4 (08:03→20:02)
[2019-08-19] MEDS: FOLIC ACID 1 MG in SYRINGE 9.8 ML IV SCH (08:03)
[2019-08-19] MEDS: PANTOprazole 40 MG in SYRINGE 0 ML IV SCH ×2 (08:03→20:02)
[2019-08-19 10:27] LABS: BUN Creatinine Ratio 12.3 (10-20); Calcium 7.3 mg/dl (8.5-10.1); Creatinine Clr Calc Pharmacy 62.8 ml/min; Est GFR (African American) 78.9; Est GFR (Non-African American) 68.1; Magnesium 1.4 mg/dl (1.8-2.4); Phosphorus 1.6 mg/dl (2.5-4.9); Potassium 3.5 mmol/L (3.5-5.1)
[2019-08-19 10:32] LABS: Hematocrit (blood only) 36.4 % (42-52); Hemoglobin 11.4 g/dL (14.0-18.0); Mean Corpuscular Hemoglobin 31.3 pg (25-34); Mean Corpuscular Hgb Conc 31.3 g/dL (32-36); Platelet Count 83 K/uL (130-400); RDW Coefficient of Variation 12.5 % (11.5-14.5); RDW Standard Deviation 45.9 fL (36.4-46.3); Red Blood Count 3.64 M/uL (4.7-6.1); White Blood Count 8.11 K/uL (4.8-10.8)
[2019-08-19] MEDS ORDERED: SODIUM PHOSPHATE 3 MMOL/1 ML INFUSION IV ONE (11:17)
--- NOTE | 2019-08-19 11:25 | Nephrology Progress Note ---
Date of Service August 19, 2019 Assessment & Plan (1) SHAGGY (acute kidney injury): * SHAGGY due to dehydration and NSAID use - resolved following aggressive hydration. Baseline Cr 0.8 - 1.0 * Hypernatremia has corrected. Will heplock IV * Will supplement Mg and PO4 this morning. Recheck levels w/ am labs tomorrow (2) Hypertension: * BP remains acceptable. Continue to hold Losartan, Spironolactone and Amlodipine Admission and Anticipated Discharge Date Admission Date: August 14, 2019 Subjective Mr. Tariq was seen & examined in his hospital room this morning. He remains nauseated. IV protonix is infusing. Review of Systems Constitutional: no fever Eyes: no problem reported Ear, Nose, Mouth, Throat: no problem reported Respiratory: no cough and no dyspnea Cardiovascular: no chest pain, no palpitations and no edema Gastrointestinal: + nausea; no abdominal pain, no vomiting and no diarrhea/loose stools Genitourinary: no dysuria, no urinary hesitancy and no hematuria Musculoskeletal: no back pain Integumentary: no rash Neurologic: no falls and no confusion Physical Exam Constitutional: not in distress Eyes: PERRL, conjunctivae normal, anicteric sclerae ENMT: external ear and nose normal, oropharynx normal Neck: trachea midline, no thyromegaly Respiratory: normal respiratory effort, lungs clear to auscultation Cardiovascular: RRR, no murmur, no edema Gastrointestinal (Abdomen): Inspection/Auscultation: + hypoactive bowel sounds Percussion/Palpation: abdomen soft; abdomen nontender Musculoskeletal: Extremities: no cyanosis Skin: no rashes, warm and dry Neurologic: awake; not confused Results & Data ([facility]) Vital Signs (Past 12 Hours) Vital Signs Temp Pulse Resp BP Pulse Ox 08/19/19 08:00 36.7 C 64 16 120/68 97 Laboratory Results Laboratory Tests 08/19/19 09:41 Sodium 144 Potassium 3.5 Chloride 111 H Carbon Dioxide 27 BUN 14 Creatinine 1.12 D Calcium 7.3 L Phosphorus 1.6 L Magnesium 1.4 L PG Care Time/CCT Total # of Minutes Spent Total Time Spent with Patient: Total time spent is greater than 50% in coordination of care (as documented) at patient's floor/unit and/or counseling patient: Coding Level of Care Code 80254 Subseq Hosp Care Lvl 3 Diagnoses SHAGGY (acute kidney injury) N17.9 Hypertension I10
[2019-08-19] MEDS: MAGNESIUM SULFATE / D5W 1 GM/100 ML BAG IV SCH ×2 (11:34→12:40)
[2019-08-19] MEDS ORDERED: SODIUM CHLORIDE 0.9% IV ONE (12:00)
[2019-08-19] MEDS ORDERED: SODIUM PHOSPHATE IV ONE (12:00)
--- NOTE | 2019-08-19 16:48 | Hospitalist Progress Note ---
Date of Service August 19, 2019 Assessment & Plan (1) Hematemesis: Occurred mildly overnight (a few bloody streaks) overnight of 08/15, then one episode of micha hematemesis on the morning of 08/16. EGD on 08/16 showed 2 ulcers (one gastric and one duodenal) and gastropathy. - Continue PPI IV BID -> Will switch to PO when less emesis. - GI consulted -> Appreciate assistance. - Monitor hgb -> Drifting down, but still >11. Now 11.4 today. No further hematochezia. (2) Thrombocytopenia: Platelets were 160 when he was admitted (baseline ~200). - Down to 86 on 08/16. Likely suppression from acute illness. HIT unlikely as 4T score is only 3 (too fast for HIT, no thrombosis seen, other causes). - Holding heparin for hematemesis; monitor plts. - Stable today at 83. 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 - Appreciate nephrology consult - Renal ultrasound on 08/[address] a/p on 08/14/2019 showed no major abnormalities. - GISELE/ANCA pending - Continue IV fluids per nephrology -> Had a anion gap metabolic acidosis initially which has resolved. 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 - On 08/16, BUN/Cr is improving. 14/1.1. Now essentially normal. Electrolytes still abnormal. (4) Vomiting: Presumably due to gastritis/gastropathy/ulcers, worsened by uremia from kidney failure. - Presently still with symptoms. Treating with Zofran and Compazine PRN. Phenergan made him feel loopy, and he doesn't want to try again. (5) Hypertension: BP presently 130/70. - Holding losartan and spironolactone for SHAGGY - Holding amlodipine for normal BP for now. (6) Chronic back pain: Long-standing back pain from old injuries. - Hold methocarbamol for now - Tylenol PRN (7) DVT prophylaxis: Holding heparin for hematemesis. Admission and Anticipated Discharge Date Admission Date: August 14, 2019 Subjective Tired today because of the compazine. However, this has improved his nausea. Reports no fevers/chills, chest pain, shortness of breath. Physical Exam Constitutional: WD/WN, vitals as above + acute distress Eyes: EOM intact bilaterally; no conjunctival abnormality ENMT: external ear and nose normal, oropharynx normal Neck: trachea midline, no thyromegaly normal visual inspection Respiratory: normal respiratory effort, lungs clear to auscultation no respiratory distress Cardiovascular: RRR, no murmur, no edema Gastrointestinal (Abdomen): Inspection/Auscultation: abdomen normal to inspection; abdomen not distended Percussion/Palpation: abdomen soft; abdomen nontender, no guarding and abdomen not rigid Musculoskeletal: no cyanosis or clubbing, extremities motor strength 5/5 Skin: no rashes, warm and dry Neurologic: moves all extremities and awake Psychiatric: Orientation: alert, oriented to person and cooperative Results & Data Results & Data ([facility]) Vital Signs (Past 12 Hours) Vital Signs Temp Pulse Resp BP Pulse Ox 08/19/19 15:56 36.8 C 69 21 131/68 96 08/19/19 11:54 36.4 C L 83 18 102/67 98 08/19/19 08:00 36.7 C 64 16 120/68 97 PG Care Time/CCT Total # of Minutes Spent Total Time Spent with Patient: Total time spent is greater than 50% in coordination of care (as documented) at patient's floor/unit and/or counseling patient: Coding Level of Care Code 48550 Subseq Hosp Care Lvl 2 Diagnoses Hematemesis K92.0 Thrombocytopenia D69.6 SHAGGY (acute kidney injury) N17.9 Vomiting R11.10 Hypertension I10 Chronic back pain M54.9; G89.29 DVT prophylaxis Z29.9
--- NOTE | 2019-08-19 17:35 | Progress Notes ---
DATE: 08/19/2019 SUBJECTIVE: The patient continues to vomit and not be able to keep anything down orally. His blood pressure is improved, it is 131/68. Pulse 69. He is afebrile. On room air, oxygen saturation is 96%. White count 8.11, hemoglobin 11.4, platelets are 83,000. Sodium is normalized to 144, BUN 14, creatinine 1.12. Calcium is still little bit low at 7.3, phosphorus low at 1.6, magnesium 1.4 also low. These are being supplemented today intravenously. He had folic acid added yesterday for low folate level. He has not been able to take any Boost supplements for his malnutrition due to his vomiting. PHYSICAL EXAMINATION: His abdomen is tender throughout, probably from his recurrent vomiting, but he is a little bit more tender in the right upper quadrant, raising the possibility of biliary disease given the fact that he has gallstones. IMPRESSION AND PLAN: The patient continues to have vomiting. I plan on scheduling a biliary scan with ejection fraction on Wednesday to evaluate his gallbladder given his continued vomiting and right upper quadrant pain on exam. He will continue to receive hydration IV as well as electrolyte replacement.
[2019-08-20] MEDS: ONDANSETRON INJ 2 MG/ML 2 ML VIAL IV PRN ×2 (05:18→18:29)
[2019-08-20 06:29] LABS: Hematocrit (blood only) 38.2 % (42-52); Hemoglobin 11.9 g/dL (14.0-18.0); Mean Corpuscular Hemoglobin 30.6 pg (25-34); Mean Corpuscular Hgb Conc 31.2 g/dL (32-36); Mean Corpuscular Volume 98.2 fL (80-100); Mean Platelet Volume 12.2 fL (7.4-10.4); Platelet Count 91 K/uL (130-400); RDW Coefficient of Variation 12.4 % (11.5-14.5); RDW Standard Deviation 43.8 fL (36.4-46.3); Red Blood Count 3.89 M/uL (4.7-6.1); White Blood Count 8.31 K/uL (4.8-10.8)
[2019-08-20 06:54] LABS: Calcium 7.4 mg/dl (8.5-10.1); Est GFR (African American) 91.6; Magnesium 1.5 mg/dl (1.8-2.4); Potassium 3.3 mmol/L (3.5-5.1)
[2019-08-20 06:59] LABS: Phosphorus 2.5 mg/dl (2.5-4.9)
[2019-08-20] MEDS: FOLIC ACID 1 MG in SYRINGE 9.8 ML IV SCH (08:00)
[2019-08-20] MEDS: PANTOprazole 40 MG in SYRINGE 0 ML IV SCH ×2 (08:00→20:40)
[2019-08-20] MEDS: SUCRALFATE 1 GM/10 ML UDC PO SCH ×4 (08:00→20:40)
[2019-08-20] MEDS: MAGNESIUM SULFATE / D5W 1 GM/100 ML BAG IV SCH ×2 (08:06→09:04)
[2019-08-20] MEDS: POTASSIUM CHLORIDE / WTR 10 MEQ/100 ML PLCT IV SCH ×2 (08:06→09:04)
--- NOTE | 2019-08-20 10:23 | Nephrology Progress Note ---
Date of Service August 20, 2019 Assessment & Plan (1) SHAGGY (acute kidney injury): * SHAGGY due to dehydration and NSAID use - resolved following aggressive hydration. Baseline Cr 0.8 - 1.0 * Hypernatremia has corrected. IV has been locked. Patient is now tolerating a liquid diet * Ca and PO4 have corrected. Mg and potassium remain slightly low. Primary service is supplementing * No further Nephrology evaluation needed at this time. Will sign off. Please call if further assistance is needed (2) Hypertension: * BP remains acceptable. Consider reintroducing Amlodipine if BP trends up. Continue to hold Losartan, Spironolactone. Admission and Anticipated Discharge Date Admission Date: August 14, 2019 Subjective Mr. Tariq was seen & examined in his hospital room this morning. IV protonix is infusing. He reports that he is now tolerating a liquid diet Review of Systems Constitutional: no fever and no weakness Eyes: no problem reported Ear, Nose, Mouth, Throat: no problem reported Respiratory: no dyspnea Cardiovascular: no chest pain, no palpitations and no edema Gastrointestinal: no abdominal pain, no nausea, no vomiting and no diarrhea/loose stools Genitourinary: no dysuria, no urinary hesitancy and no hematuria Musculoskeletal: no back pain Integumentary: no rash Neurologic: no confusion Physical Exam Constitutional: not in distress Eyes: PERRL, conjunctivae normal, anicteric sclerae ENMT: external ear and nose normal, oropharynx normal Neck: trachea midline, no thyromegaly Respiratory: normal respiratory effort, lungs clear to auscultation Cardiovascular: RRR, no murmur, no edema Gastrointestinal (Abdomen): Inspection/Auscultation: + hypoactive bowel sounds Percussion/Palpation: abdomen soft; abdomen nontender Musculoskeletal: Extremities: no cyanosis Skin: no rashes, warm and dry Neurologic: awake; not confused Results & Data ([facility]) Vital Signs (Past 12 Hours) Vital Signs Temp Pulse Pulse Resp BP Pulse Ox 08/20/19 07:28 37.0 C 70 20 148/77 H 97 08/19/19 23:00 66 14 144/66 H 96 Laboratory Results Laboratory Tests 08/19/19 08/20/19 08/20/19 09:41 05:43 05:43 WBC 8.31 Hgb 11.9 L Hct 38.2 L Plt Count 91 L Sodium 144 144 Potassium 3.5 3.3 L Chloride 111 H 110 H Carbon Dioxide 27 26 BUN 14 16 Creatinine 1.12 D 0.99 Glucose 88 Calcium 7.3 L 7.4 L Phosphorus 1.6 L 2.5 Magnesium 1.4 L 1.5 L PG Care Time/CCT Total # of Minutes Spent Total Time Spent with Patient: Total time spent is greater than 50% in coordination of care (as documented) at patient's floor/unit and/or counseling patient: Coding Level of Care Code 62368 Subseq Hosp Care Lvl 3 Diagnoses SHAGGY (acute kidney injury) N17.9 Hypertension I10
--- NOTE | 2019-08-20 11:19 | Progress Notes ---
DATE: 08/20/2019 SUBJECTIVE: The patient was able to keep down a little bit of Sprite and some Boost today. He said he did vomit a little bit after midnight last night, but has been able to keep down a little bit of liquid that he took in orally today. OBJECTIVE: VITAL SIGNS: His blood pressure is 148/77, pulse 70, he is afebrile. White count is normal. Hemoglobin is stable at 11.9, platelet came up a little bit to 91,000. Sodium remains normal at 144, potassium a little low at 3.3, calcium low at 7.4, magnesium low at 1.5, phosphorus corrected to 2.5, which is lower limit of normal. IMPRESSION: The patient continues to improve slowly with fluid and electrolyte corrections. His renal function has returned to normal. He is scheduled for a biliary scan tomorrow to assess the function of his gallbladder to see if that is playing a role in his nausea and vomiting.
--- NOTE | 2019-08-20 14:28 | Hospitalist Progress Note ---
Date of Service August 20, 2019 Assessment & Plan (1) Vomiting: Presumably due to gastritis/gastropathy/ulcers, worsened by uremia from kidney failure. - Presently still with symptoms. Treating with Zofran and Compazine PRN. Phenergan made him feel loopy, and he doesn't want to try again. - This is actually what is keeping him in the hospital at this point. He is only beginning to take small amount of PO without immediately having dry heaving. Hopefully this is just slow recovery from the below issues. 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 Uric acid was 25 initially. - Appreciate nephrology consult - Renal ultrasound on 08/14 & CT a/p on 08/14/2019 showed no major abnormalities. - GISELE/ANCA pending - Continue IV fluids per nephrology -> Had a anion gap metabolic acidosis initially which has resolved. 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 - RESOLVED. Still having some electrolyte imbalances, likely from poor PO intake x 2 weeks. (3) Hematemesis: Occurred mildly overnight (a few bloody streaks) overnight of 08/15, then one episode of micha hematemesis on the morning of 08/16. EGD on 08/16 showed 2 ulcers (one gastric and one duodenal) and gastropathy. - Continue PPI IV BID -> Will switch to PO when less emesis. - GI consulted -> Appreciate assistance. - Monitor hgb -> Drifting down, but still >11. Now 11.9 today. No further hematochezia. Continue PPI BID x 4 weeks, then daily after that. Still on IV PPI with frequent emesis, but could switch to PO tomorrow hopefully. (4) Thrombocytopenia: Platelets were 160 when he was admitted (baseline ~200). - Down to 86 on 08/16. Likely suppression from acute illness. HIT unlikely as 4T score is only 3 (too fast for HIT, no thrombosis seen, other causes). - Holding heparin for hematemesis; monitor plts. - Recovering slightly today at 91. (5) Hypertension: BP presently 150/75. - Holding losartan and spironolactone for SHAGGY - Held amlodipine for normal BP initially; will restart today. (6) Chronic back pain: Long-standing back pain from old injuries. - Hold methocarbamol for now - Tylenol PRN (7) DVT prophylaxis: Holding heparin for hematemesis. Admission and Anticipated Discharge Date Admission Date: August 14, 2019 Subjective Some better today. Able to drink a Sprite. Getting some broth down. Reports no fevers/chills, chest pain, shortness of breath. Physical Exam Constitutional: WD/WN, vitals as above + acute distress Eyes: EOM intact bilaterally; no conjunctival abnormality ENMT: external ear and nose normal, oropharynx normal Neck: trachea midline, no thyromegaly normal visual inspection Respiratory: normal respiratory effort, lungs clear to auscultation no respiratory distress Cardiovascular: RRR, no murmur, no edema Gastrointestinal (Abdomen): Inspection/Auscultation: abdomen normal to inspection; abdomen not distended Percussion/Palpation: abdomen soft; abdomen nontender, no guarding and abdomen not rigid Musculoskeletal: no cyanosis or clubbing, extremities motor strength 5/5 Skin: no rashes, warm and dry Neurologic: moves all extremities and awake Psychiatric: Orientation: alert, oriented to person and cooperative Results & Data Results & Data ([facility]) Vital Signs (Past 12 Hours) Vital Signs Temp Pulse Resp BP Pulse Ox 08/20/19 07:28 37.0 C 70 20 148/77 H 97 PG Care Time/CCT Total # of Minutes Spent Total Time Spent with Patient: Total time spent is greater than 50% in coordi nation of care (as documented) at patient's floor/unit and/or counseling patient: Coding Level of Care Code 97927 Subseq Hosp Care Lvl 2 Diagnoses Vomiting R11.10 SHAGGY (acute kidney injury) N17.9 Hematemesis K92.0 Thrombocytopenia D69.6 Hypertension I10 Chronic back pain M54.9; G89.29 DVT prophylaxis Z29.9
[2019-08-20] MEDS: AMLODIPINE BESYLATE 5 MG TAB PO SCH (15:25)
[2019-08-20 23:54] LABS: ANCA Screen Negative (Negative); Anti Nuclear Antibody Screen NEGATIVE (NEGATIVE); Myeloperoxidase Ab <1.0 AI (<1.0); Proteinase-3 AB <1.0 AI (<1.0)
[2019-08-21] MEDS: ONDANSETRON INJ 2 MG/ML 2 ML VIAL IV PRN ×3 (00:04→19:42)
[2019-08-21 07:07] LABS: Hematocrit (blood only) 37.5 % (42-52); Mean Corpuscular Hemoglobin 31.2 pg (25-34); Mean Corpuscular Volume 97.4 fL (80-100); Mean Platelet Volume 12.4 fL (7.4-10.4); Platelet Count 104 K/uL (130-400); RDW Coefficient of Variation 12.4 % (11.5-14.5); RDW Standard Deviation 43.7 fL (36.4-46.3); Red Blood Count 3.85 M/uL (4.7-6.1); White Blood Count 7.89 K/uL (4.8-10.8)
[2019-08-21 07:34] LABS: BUN Creatinine Ratio 21.9 (10-20); Calcium 8.2 mg/dl (8.5-10.1); Creatinine Clr Calc Pharmacy 63.3 ml/min; Est GFR (African American) 79.8; Est GFR (Non-African American) 68.8; Phosphorus 2.2 mg/dl (2.5-4.9)
[2019-08-21 08:16] LABS: Potassium 3.4 mmol/L (3.5-5.1)
[2019-08-21 08:17] LABS: Magnesium 1.7 mg/dl (1.8-2.4)
[2019-08-21] MEDS ORDERED: SINCALIDE 1.4 MCG in 0.9 % SODIUM CHLORIDE 100 ML IV ONE (09:30)
[2019-08-21] MEDS: SUCRALFATE 1 GM/10 ML UDC PO SCH ×4 (10:30→21:08)
[2019-08-21] MEDS: AMLODIPINE BESYLATE 5 MG TAB PO SCH (10:30)
[2019-08-21] MEDS: FOLIC ACID 1 MG in SYRINGE 9.8 ML IV SCH (10:30)
[2019-08-21] MEDS: PANTOprazole 40 MG in SYRINGE 0 ML IV SCH ×2 (10:30→21:08)
--- NOTE | 2019-08-21 10:33 | Nuclear Medicine Report ---
NM hepatobiliary EF CLINICAL HISTORY: RUQ pain, vomiting cholelithiasis COMPARISON STUDY: CT scan dated 08/14/2019 FINDINGS: The patient was injected with 5.6 mCi of technetium 99 M Choletec. Anterior imaging was performed. He patic excretion appeared unremarkable. There was normal passage of activity into small bowel. The gal lbladder was first visualized on the 55 minute image. At 1 hour, the patient was injected with 1.4 mcg of sincalide utilizing a 30 minute infusion. The gal lbladder ejection fraction was abnormal measuring 4%. There is mild bile reflux into the stomach. IMPRESSION: 1. No evidence of cystic duct obstruction 2. Abnormal gallbladder ejection fraction measuring 4% ACT 112: Negative or not required by law. Electronically signed by: Frandy Palacios M.D. 08/21/2019 10:31 AM
--- NOTE | 2019-08-21 16:21 | Progress Notes ---
DATE: 08/21/2019 SUBJECTIVE: The patient continues to complain of nausea and occasional vomiting as well as persistent abdominal pain. He underwent a biliary scan with ejection fraction this morning which showed only 4% ejection fraction from his gallbladder, which is significantly low and indicative of malfunctioning gallbladder. PHYSICAL EXAMINATION: Blood pressure is 123/72, pulse 91. He is afebrile. Room air saturation 92%. He has a positive Live sign on physical exam. White count is normal at 7.89, hemoglobin stable at 12, platelets 104,000 which is improving. Electrolytes show sodium 146, potassium 3.4, calcium low 8.2, phosphorus low 2.2, magnesium low 1.7. IMPRESSION AND PLAN: I think the patient has cholecystitis contributing to his symptoms, especially his pain and vomiting. His gallbladder appears to be severely dysfunctional and I recommend a surgical consultation to consider cholecystectomy to see if it helps with his symptoms.
--- NOTE | 2019-08-21 17:34 | Surgery Consultation ---
Date of Consultation August 21, 2019 Assessment & Plan (1) Vomiting: Abnormal EF on HIDA, sludge/GB distention on CT and renal US. Uncertain than cholecystectomy will alleviate his symptoms. Dr. Foreman will see in AM, can discuss further with GI. History of Present Illness Attending Physician: Sourav Rich History of Present Illness 64 y/o male admitted 1 week ago for vomiting that began about a week before coming in. Had EGD 08/16 with duodenal and gastric ulcers. He continues to have postprandial vomiting about 10 minutes after taking full liquid diet. No history of abdominal pain, fatty food intolerance or heartburn. H/o right hemicolectomy. Allergies Allergy/AdvReac Type Severity Reaction Status Date / Time bee venom protein (honey bee) Allergy Severe ANAPHYLACTIC Verified 08/14/19 22:51 REACTION A CHILD Home Medications Home Medications Medication Instructions Recorded Confirmed Type amlodipine 10 mg PO DAILY 08/14/19 08/14/19 History epinephrine [EpiPen] 0.3 mg IM DIRECTED PRN 08/14/19 08/14/19 History losartan 100 mg PO DAILY 08/14/19 08/14/19 History methocarbamol 750 mg PO QID 08/14/19 08/14/19 History metoclopramide HCl 10 mg PO .Q6-8HRS PRN 08/14/19 08/14/19 History omeprazole 40 mg PO QAM 08/14/19 08/14/19 History spironolactone 25 mg PO DAILY 08/14/19 08/14/19 History Patient History Medical History SHAGGY (acute kidney injury) Chronic back pain Electrolyte abnormality Clinically consistent with dehydration, NSAID use, uric acid nephropathy, and ATN. Tolerating IVF well. Creatinine continues to improve. Uremia also improving with management. Free water deficit persist (~4.5 L). Unable to tolerate medications or fluids by mouth. IVF switched to 1/4 NaCl + 20 KCl @ 200 ml/h yesterday evening. Urine appropriately alkaline. Noted UA crystals in urine yesterday AM. Serum UA level improving. Hypokalemia and hypophosphatemia noted. magnesium falling. K phos x 30 mmol IV ordered. Will continue to monitor labs twice daily and replace as needed. No adjustment to IVF infusion at this time. Hematemesis Hypertension Thrombocytopenia Vomiting Surgical History H/O right hemicolectomy Social History Preferred Language: Icelandic Communication Ability: Effective Head Of History Required: No Beliefs That Will Affect Care: None Current Living Situation: Spouse Other Information That Helps Us Care for You: No Feels Safe at Home: Yes Safety Concerns: Feels Safe At This Time Smoking Status: Former smoker Do You Dip or Chew Tobacco: No ; Hx Alcohol Use: No Hx Substance Use: No Review of Systems Constitutional: no fever and no chills Gastrointestinal: + vomiting; no abdominal pain and no heartburn Physical Exam Constitutional: WD/WN, vitals as above Gastrointestinal (Abdomen): Percussion/Palpation: + abdomen tender (more toward epigastric than RUQ) and abdomen soft Results & Data Vital Signs (Past 12 Hours) Vital Signs Temp Pulse Resp BP Pulse Ox 08/21/19 14:54 36.9 C 91 H 20 123/72 92 08/21/19 07:31 37.6 C H 76 20 150/73 H 94 PG Care Time/CCT Total # of Minutes Spent Total Time Spent with Patient: Total time spent is greater than 50% in coordination of care (as documented) at patient's floor/unit and/or counseling patient: Coding Level of Care Code 70956 Initial Inpt Care Lvl 1 Diagnoses Vomiting R11.10
[2019-08-21] MEDS ORDERED: LACTATED RINGER'S 1,000 ML IV SCH (18:45)
[2019-08-21] MEDS: D5W AND 1/2NSS + 20MEQ KCL 20 MEQ/1,000 ML BAG IV SCH ×2 (21:42→21:43)
--- NOTE | 2019-08-21 22:47 | Hospitalist Progress Note ---
Date of Service August 21, 2019 Assessment & Plan (1) Vomiting: Presumably due to gastritis/gastropathy/ulcers, worsened by uremia from kidney failure. - Presently still with symptoms. Treating with Zofran and Compazine PRN. Phenergan made him feel loopy, and he doesn't want to try again. - Consulted GI: feel symptoms are coming from gallbladder, may benefit from cholecystectomy. 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 Uric acid was 25 initially. - Appreciate nephrology consult - Renal ultrasound on 08/14 & CT a/p on 08/14/2019 showed no major abnormalities. - GISELE/ANCA pending - Continue IV fluids per nephrology -> Had a anion gap metabolic acidosis initially which has resolved. 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 - RESOLVED. will need estuardo monitor electrolytes. (3) Hematemesis: Occurred mildly overnight (a few bloody streaks) overnight of 08/15, then one episode of micha hematemesis on the morning of 08/16. EGD on 08/16 showed 2 ulcers (one gastric and one duodenal) and gastropathy. - Continue PPI IV BID -> Will switch to PO when less emesis. - GI consulted -> Appreciate assistance. - Monitor hgb -> Drifting down, but still >11. Now 11.9 today. No further hematochezia. Continue PPI BID x 4 weeks, then daily after that. Still on IV PPI with frequent emesis, but could switch to PO tomorrow hopefully. (4) Thrombocytopenia: Platelets were 160 when he was admitted (baseline ~200). - Down to 86 on 08/16. Likely suppression from acute illness. HIT unlikely as 4T score is only 3 (too fast for HIT, no thrombosis seen, other causes). - Holding heparin for hematemesis; monitor plts. - Recovering slightly today at 91. (5) Hypertension: BP presently 150/75. - Holding losartan and spironolactone for SHAGGY - bp BETTER controlled. continue amlodipine (6) Chronic back pain: Long-standing back pain from old injuries. - Hold methocarbamol for now - Tylenol PRN (7) DVT prophylaxis: Holding heparin for hematemesis. Admission and Anticipated Discharge Date Admission Date: August 14, 2019 Subjective Patient reports that he continues to ave nausea. He has no new complaints. No significant improvement today either. Review of Systems Review of Systems: All systems reviewed & are unremarkable except as noted in HPI & below Physical Exam Physical Exam: Constitutional: WD/WN, vitals as above, no longer in distress Eyes: EOM intact bilaterally; no conjunctival abnormality ENMT: external ear and nose normal, oropharynx normal Neck: trachea midline, no thyromegaly normal visual inspection Respiratory: normal respiratory effort, lungs clear to auscultation no respiratory distress Cardiovascular: RRR, no murmur, no edema Gastrointestinal (Abdomen): Inspection/Auscultation: abdomen normal to inspection; abdomen not distended Percussion/Palpation: abdomen soft; abdomen nontender, no guarding and abdomen not rigid Musculoskeletal: no cyanosis or clubbing, extremities motor strength 5/5 Skin: no rashes, warm and dry Neurologic: moves all extremities and awake Psychiatric: Orientation: alert, oriented to person and cooperative Results & Data Results & Data ([facility]) Vital Signs (Past 12 Hours) Vital Signs Temp Pulse Resp BP Pulse Ox 08/21/19 14:54 36.9 C 91 H 20 123/72 92 PG Care Time/CCT Total # of Minutes Spent Total Time Spent with Patient: Total time spent is greater than 50% in coordination of care (as documented) at patient's floor/unit and/or counseling patient: Coding Level of Care Code 07139 Subseq Hosp Care Lvl 3 Diagnoses Vomiting R11.10 SHAGGY (acute kidney injury) N17.9 Hematemesis K92.0 Thrombocytopenia D69.6 Hypertension I10 Chronic back pain M54.9; G89.29 DVT prophylaxis Z29.9 Time Spent (min) 35
--- NOTE | 2019-08-22 06:09 | Surgery Progress Note ---
Date of Service August 22, 2019 Assessment & Plan (1) Vomiting: Abnormal EF on HIDA, sludge/GB distention on CT and renal US. Uncertain than cholecystectomy will alleviate his symptoms. Dr. Foreman will see in AM, can discuss further with GI. 08/22/19 At this time I do not think that this is related to the gallbladder but I would like to get a gastric emptying study which was ordered Subjective States had a good night sleep Still cannot even drink water and immediately vomits No true gallbladder symptoms by history Physical Exam Physical Exam: Alert coherent in no distress No real abdominal findings but has generalized guarding Results & Data Vital Signs (Past 12 Hours) Vital Signs Temp Pulse Resp BP Pulse Ox 08/22/19 00:06 37.4 C 90 20 143/76 H 97 PG Care Time/CCT Total # of Minutes Spent Total Time Spent with Patient: Total time spent is greater than 50% in coordination of care (as documented) at patient's floor/unit and/or counseling patient: Coding Level of Care Code 70752 Subseq Hosp Care Lvl 3 Diagnoses Vomiting R11.10 Time Spent (min) 30 Comment discussed possible causes of present symp
[2019-08-22] MEDS: D5W AND 1/2NSS + 20MEQ KCL 20 MEQ/1,000 ML BAG IV SCH (06:14)
[2019-08-22 07:33] LABS: BUN Creatinine Ratio 21.8 (10-20); Calcium 8.4 mg/dl (8.5-10.1); Creatinine Clr Calc Pharmacy 67.6 ml/min; Est GFR (African American) 86.3; Est GFR (Non-African American) 74.5; Potassium 3.1 mmol/L (3.5-5.1)
[2019-08-22] MEDS: AMLODIPINE BESYLATE 5 MG TAB PO SCH (08:19)
[2019-08-22] MEDS: SUCRALFATE 1 GM/10 ML UDC PO SCH ×4 (08:19→22:02)
[2019-08-22] MEDS: FOLIC ACID 1 MG in SYRINGE 9.8 ML IV SCH (09:51)
[2019-08-22] MEDS: PANTOprazole 40 MG in SYRINGE 0 ML IV SCH ×2 (09:52→22:03)
[2019-08-22] MEDS: LACTATED RINGER'S 1,000 ML IV SCH ×2 (10:09→22:11)
--- NOTE | 2019-08-22 14:12 | Progress Notes ---
DATE: 08/22/2019 SUBJECTIVE: The patient reports less abdominal pain and he was able to keep down a bowl of cream of wheat earlier today. He is also taking nutritional supplement at least twice a day, which is a significant improvement. He did have a little bit of vomiting earlier today. I spoke with Dr. Foreman, and despite a low ejection fraction of only 4% on his biliary scan, he did not feel that the gallbladder was contributing to his symptoms and did not feel that taking his gallbladder out would be of benefit at this time. He ordered a gastric emptying test, which is being scheduled for tomorrow. PHYSICAL EXAMINATION: VITAL SIGNS: Blood pressure is 135/65, pulse 78, temperature is 36.9, O2 saturations 95% on room air. Sodium 148, potassium is low at 3.1, calcium is still low at 8.4, although coming up. ABDOMEN: Less tender today than in the last couple of days. IMPRESSION: The patient's improvement and eating is rewarding. He will get a gastric emptying test tomorrow. I did not see an excessive amount of food or fluid in his stomach when I did his upper endoscopy, so I suspect that his gastric emptying test will be normal or close to normal. At this point, we can try to advance his diet as tolerated and continue to correct his electrolyte disturbances. Dr. Bell will be covering starting tomorrow.
--- NOTE | 2019-08-22 22:16 | Hospitalist Progress Note ---
Date of Service August 22, 2019 Assessment & Plan (1) Vomiting: Presumably due to gastritis/gastropathy/ulcers, worsened by uremia from kidney failure. - Presently still with symptoms. -Plan is to have gastric emptying study tomorrow. - Treating with Zofran and Compazine PRN. Phenergan made him feel loopy, and he doesn't want to try again. - Consulted GI: feel symptoms are coming from gallbladder, may benefit from cholecystectomy. 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 Uric acid was 25 initially. - Appreciate nephrology consult - Renal ultrasound on 08/[address] a/p on 08/14/2019 showed no major ab normalities. - GISELE/ANCA ordered. - Continue IV fluids per nephrology -> Had a anion gap metabolic acidosis initially which has resolved. 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 - RESOLVED. will need estuardo monitor electrolytes. (3) Hematemesis: Occurred mildly overnight (a few bloody streaks) overnight of 08/15, then one episode of micha hematemesis on the morning of 08/16. EGD on 08/16 showed 2 ulcers (one gastric and one duodenal) and gastropathy. - Continue PPI IV BID -> Will switch to PO when less emesis. - GI consulted -> Appreciate assistance. - Monitor hgb -> Drifting down, but still >11. Now 11.9 today. No further hematochezia. Continue PPI BID x 4 weeks, then daily after that. Still on IV PPI with frequent emesis. (4) Thrombocytopenia: Platelets were 160 when he was admitted (baseline ~200). - Down to 86 on 08/16. Likely suppression from acute illness. HIT unlikely as 4T score is only 3 (too fast for HIT, no thrombosis seen, other causes). - Holding heparin for hematemesis; monitor plts. - Recovering slightly today at 91. (5) Hypertension: BP presently 150/75. - Holding losartan and spironolactone for SHAGGY - bp BETTER controlled. continue amlodipine (6) Chronic back pain: Long-standing back pain from old injuries. - Hold methocarbamol for now - Tylenol PRN (7) DVT prophylaxis: Holding heparin for hematemesis. Admission and Anticipated Discharge Date Admission Date: August 14, 2019 Subjective Patient reports he tolerated his AM diet. He did vomit his dinner. Review of Systems Review of Systems: All systems reviewed & are unremarkable except as noted in HPI & below Physical Exam Physical Exam: Constitutional: WD/WN, vitals as above, no longer in distress Eyes: EOM intact bilaterally; no conjunctival abnormality ENMT: external ear and nose normal, oropharynx normal Neck: trachea midline, no thyromegaly normal visual inspection Respiratory: normal respiratory effort, lungs clear to auscultation no respiratory distress Cardiovascular: RRR, no murmur, no edema Gastrointestinal (Abdomen): Inspection/Auscultation: abdomen normal to inspection; abdomen not distended Percussion/Palpation: abdomen soft; abdomen nontender, no guarding and abdomen not rigid Musculoskeletal: no cyanosis or clubbing, extremities motor strength 5/5 Skin: no rashes, warm and dry Neurologic: moves all extremities and awake Psychiatric: Orientation: alert, oriented to person and cooperative Results & Data Results & Data ([facility]) Vital Signs (Past 12 Hours) Vital Signs Temp Pulse Resp BP Pulse Ox 08/22/19 15:43 36.6 C 82 18 117/68 97 PG Care Time/CCT Total # of Minutes Spent Total Time Spent with Patient: Total time spent is greater than 50% in coordination of care (as documented) at patient's floor/unit and/or counseling patient: Coding Level of Care Code 84480 Subseq Hosp Care Lvl 2 Diagnoses Vomiting R11.10 SHAGGY (acute kidney injury) N17.9 Hematemesis K92.0 Thrombocytopenia D69.6 Hypertension I10 Chronic back pain M54.9; G89.29 DVT prophylaxis Z29.9 Time Spent (min) 25
[2019-08-23] MEDS: PANTOprazole 40 MG in SYRINGE 0 ML IV SCH ×2 (07:38→21:53)
[2019-08-23] MEDS: FOLIC ACID 1 MG in SYRINGE 9.8 ML IV SCH (07:38)
[2019-08-23] MEDS: AMLODIPINE BESYLATE 5 MG TAB PO SCH (07:38)
[2019-08-23] MEDS: SUCRALFATE 1 GM/10 ML UDC PO SCH ×4 (07:38→21:53)
--- NOTE | 2019-08-23 07:40 | Surgery Progress Note ---
Date of Service August 23, 2019 Assessment & Plan (1) Vomiting: Patient making some small improvements with diet intake compared to prior Gastric emptying study ordered for today, hopefully patient will tolerate Unlikely gallbladder contributing to symptoms at this time We will continue to follow Subjective Patient states yesterday he was able to tolerate some parts of each meal. Was able to eat cream of wheat in it's entirety for breakfast, however threw up his trinidadian ice at lunch and cream of mushroom soup at dinner. Was able to keep down some apple-juice around dinner time as well. Physical Exam Physical Exam: awake/alert Gastrointestinal (Abdomen): Percussion/Palpation: abdomen soft Results & Data Vital Signs (Past 12 Hours) Vital Signs Temp Pulse Resp BP Pulse Ox 08/22/19 23:00 36.8 C 74 20 145/75 H 95 PG Care Time/CCT Total # of Minutes Spent Total Time Spent with Patient: Total time spent is greater than 50% in coordination of care (as documented) at patient's floor/unit and/or counseling patient: Coding Level of Care Code 91913 Subseq Hosp Care Lvl 1 Diagnoses Vomiting R11.10
--- NOTE | 2019-08-23 08:34 | Nuclear Medicine Report ---
NUCLEAR GASTRIC EMPTYING STUDY CLINICAL HISTORY: Vomiting. COMPARISON STUDY: Abdominal CT dated 08/14/2019. TECHNIQUE: The patient was prescribed an oral dosage of 1 mCi of technetium 99m sulfur colloid in egg sandwich. The patient consumed approximately half of the dose and then vomited. The examination was discontinued at this time. No imaging was performed. IMPRESSION: Discontinued gastric emptying study as the patient consumed approximately half of the pre scribed dosage before vomiting. No imaging was performed. ACT 112: Negative or not required by law. Electronically signed by: Herson Beard M.D. 08/23/2019 8:33 AM
[2019-08-23] MEDS: LACTATED RINGER'S 1,000 ML IV SCH ×2 (10:31→23:13)
[2019-08-23] MEDS: ONDANSETRON INJ 2 MG/ML 2 ML VIAL IV PRN (12:55)
--- NOTE | 2019-08-23 16:25 | Gastroenterology Progress Note ---
Date of Service August 23, 2019 Assessment & Plan (1) Vomiting: Workup has included EGD showing erosive gastriritis and duodenitis but not necessarily to the level to explain symtoms, TSH normal, CT a/p no explanation. The HIDA scan with low EF may be contributing to this as I have seen n/v in the past improved post cholecystectomy. Head CT no obvious central etiology. Recommend small, frequent meals. Pt would like to try to pick off broader menu to see if he can find more palatable foods he can tolerate so ordered regular diet. To rule out Addisons disease as a cause, I ordered cortisol for am. gallstones/low EF--may be contributing folic acid deficiency--on supplement. PUD--on PPI and carafate elevated ferrritin, elevated Fe sat--check hemochromatosis genetic testing but ferrtin could be acute phase reactant Admission and Anticipated Discharge Date Admission Date: August 14, 2019 Subjective cc nausea and vomiting HPI Pt did not tolerate the gastric emptying study. He vomited just minutes after eating the eggs. No abd pain excpept if he retches a lot. States has good bm today the first in maybe 10-11 days. States he cannot tolerate boost or pud ding he tried today. Review of Systems Respiratory: no dyspnea Cardiovascular: no chest pain Physical Exam Constitutional: WD/WN, vitals as above Respiratory: normal respiratory effort, lungs clear to auscultation Cardiovascular: RRR, no murmur, no edema Gastrointestinal (Abdomen): normal bowel sounds, soft, nontender, no hepatosplenomegaly Neurologic: PERRL, EOMI, accommodation nl, no face palsy, no dysarthria Psychiatric: A+Ox3, euthymic affect Results & Data ([facility]) Vital Signs (Past 12 Hours) Vital Signs Temp Pulse Pulse Resp BP Pulse Ox 08/23/19 15:24 36.9 C 85 18 144/68 H 93 08/23/19 07:46 37.5 C 79 20 148/74 H 95
--- NOTE | 2019-08-23 23:15 | Hospitalist Progress Note ---
Date of Service August 23, 2019 Assessment & Plan (1) Vomiting: Presumably due to gastritis/gastropathy/ulcers, worsened by uremia from kidney failure. - Presently still with symptoms. -Unable to tolerate gastric emptying study. -gALLBALDDER MAY BE CONTRIBUTING. -WILL ALSO CHECK CORTISOL LEVEL as per GI. -Will try smaller more frequent meals. - Treating with Zofran and Compazine PRN. Phenergan made him feel loopy, and he doesn't want to try again. - Consulted GI: feel symptoms are coming from gallbladder, may benefit from cholecystectomy. Consulted Gen surgery: surgery does not feel it will be beneficial. 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 Uric acid was 25 initially. - Appreciate nephrology consult - Renal ultrasound on 08/[address] a/p on 08/14/2019 showed no major abnormalities. - GISELE/ANCA ordered. - Continue IV fluids per nephrology -> Had a anion gap metabolic acidosis initially which has resolved. 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 - RESOLVED. will need estuardo monitor electrolytes. (3) Hematemesis: Occurred mildly overnight (a few bloody streaks) overnight of 08/15, then one episode of micha hematemesis on the morning of 08/16. EGD on 08/16 showed 2 ulcers (one gastric and one duodenal) and gastropathy. - Continue PPI IV BID -> Will switch to PO when less emesis. - GI consulted -> Appreciate assistance. - Monitor hgb -> Drifting down, but still >11. Now 11.9 today. No further hematochezia. Continue PPI BID x 4 weeks, then daily after that. Still on IV PPI with frequent emesis. (4) Thrombocytopenia: Platelets were 160 when he was admitted (baseline ~200). - Down to 86 on 08/16. Likely suppression from acute illness. HIT unlikely as 4T score is only 3 (too fast for HIT, no thrombosis seen, other causes). - Holding heparin for hematemesis; monitor plts. - Recovering at 104. (5) Hypertension: BP presently 150/75. - Holding losartan and spironolactone for SHAGGY - bp BETTER controlled. continue amlodipine (6) Chronic back pain: Long-standing back pain from old injuries. - Hold methocarbamol for now - Tylenol PRN (7) DVT prophylaxis: Holding heparin for hematemesis. Admission and Anticipated Discharge Date Admission Date: August 14, 2019 Subjective 64 yo male reports that he is continuing to have nausea vomiting. He did not tolerate the gastric emptying study. Review of Systems Review of Systems: All systems reviewed & are unremarkable except as noted in HPI & below Physical Exam Physical Exam: Constitutional: WD/WN, vitals as above, no longer in distress Eyes: EOM intact bilaterally; no conjunctival abnormality ENMT: external ear and nose normal, oropharynx normal Neck: trachea midline, no thyromegaly normal visual inspection Respiratory: normal respiratory effort, lungs clear to auscultation no respiratory distress Cardiovascular: RRR, no murmur, no edema Gastrointestinal (Abdomen): Inspection/Auscultation: abdomen normal to inspection; abdomen not distended Percussion/Palpation: abdomen soft; abdomen nontender, no guarding and abdomen not rigid Musculoskeletal: no cyanosis or clubbing, extremities motor strength 5/5 Skin: no rashes, warm and dry Neurologic: moves all extremities and awake Psychiatric: Orientation: alert, oriented to person and cooperative Results & Data Results & Data ([facility]) Vital Signs (Past 12 Hours) Vital Signs Temp Pulse Resp BP Pulse Ox 08/23/19 15:24 36.9 C 85 18 144/68 H 93 PG Care Time/CCT Total # of Minutes Spent Total Time Spent with Patient: Total time spent is greater than 50% in the [facility] (as documented) at patient's floor/unit and/or counseling patient: Coding Level of Care Code 59807 Subseq Hosp Care Lvl 2 Diagnoses Vomiting R11.10 SHAGGY (acute kidney injury) N17.9 Hematemesis K92.0 Thrombocytopenia D69.6 Hypertension I10 Chronic back pain M54.9; G89.29 DVT prophylaxis Z29.9 Time Spent (min) 25
[2019-08-24 07:33] LABS: Basophils # (auto) 0.02 K/uL (0-0.2); Basophils % (auto) 0.2 %; Eosinophils # (auto) 0.12 K/uL (0-0.5); Eosinophils % (auto) 1.4 %; Hematocrit (blood only) 36.1 % (42-52); Hemoglobin 11.7 g/dL (14.0-18.0); Immature Granulocytes # (auto) 0.02 K/uL (0.00-0.02); Immature Granulocytes % (auto) 0.2 %; Lymphocytes % (auto) 10.4 %; Mean Corpuscular Hemoglobin 31.1 pg (25-34); Mean Corpuscular Hgb Conc 32.4 g/dL (32-36); Mean Platelet Volume 11.9 fL (7.4-10.4); Monocytes # (auto) 0.34 K/uL (0.11-0.59); Monocytes % (auto) 3.9 %; Neutrophils # (auto) 7.29 K/uL (1.4-6.5); Neutrophils % (auto) 83.9 %; Platelet Count 140 K/uL (130-400); RDW Coefficient of Variation 12.4 % (11.5-14.5); RDW Standard Deviation 43.4 fL (36.4-46.3); Red Blood Count 3.76 M/uL (4.7-6.1); White Blood Count 8.69 K/uL (4.8-10.8)
[2019-08-24 08:01] LABS: Albumin Globulin Ratio 0.7 (0.9-2); Albumin Level 2.7 gm/dl (3.4-5.0); BUN Creatinine Ratio 18.5 (10-20); Bilirubin,Total 0.8 mg/dl (0.2-1); Calcium 8.4 mg/dl (8.5-10.1); Creatinine Clr Calc Pharmacy 97.6 ml/min; Est GFR (African American) 112.7; Est GFR (Non-African American) 97.2; Globulin 3.9 gm/dl (2.5-4.0); Potassium 2.6 mmol/L (3.5-5.1); Total Protein 6.6 gm/dl (6.4-8.2)
[2019-08-24] MEDS: SUCRALFATE 1 GM/10 ML UDC PO SCH ×4 (10:05→21:18)
[2019-08-24] MEDS: AMLODIPINE BESYLATE 5 MG TAB PO SCH (10:06)
[2019-08-24] MEDS: POTASSIUM CHLORIDE / WTR 10 MEQ/100 ML PLCT IV SCH ×3 (10:06→13:27)
[2019-08-24] MEDS: PANTOprazole 40 MG in SYRINGE 0 ML IV SCH ×2 (10:06→21:18)
[2019-08-24] MEDS: FOLIC ACID 1 MG in SYRINGE 9.8 ML IV SCH (10:06)
--- NOTE | 2019-08-24 10:41 | Surgery Progress Note ---
Date of Service August 24, 2019 Assessment & Plan (1) Vomiting: Patient making some small improvements with diet intake compared to prior Gastric emptying study ordered for today, hopefully patient will tolerate Unlikely gallbladder contributing to symptoms at this time We will continue to follow 08/24/19 At this point the patient seems to be improving was unable to get it gastric emptying study yesterday My recommendations would be to discharge the patient and to follow-up with us on a as needed basis if any new issues should arise regarding possibility of the gallbladder becomes an issue Subjective 08/24/19 Patient feels much better was able to eat solid food last night without any vomiting but orange juice this morning triggered a slight emesis cc nausea and vomiting HPI Pt did not tolerate the gastric emptying study. He vomited just minutes after eating the eggs. No abd pain excpept if he retches a lot. States has good bm today the first in maybe 10-11 days. States he cannot tolerate boost or pudding he tried today. Physical Exam Physical Exam: Patient is sitting up in a chair the first time I seen him up without any complaints resting comfortably No gross abdominal findings Results & Data Vital Signs (Past 12 Hours) Vital Signs Temp Pulse Pulse Resp BP Pulse Ox 08/24/19 07:00 37.4 C 81 18 138/75 92 08/23/19 23:00 37.2 C 72 20 155/75 H 93 PG Care Time/CCT Total # of Minutes Spent Total Time Spent with Patient: Total time spent is greater than 50% in coordination of care (as documented) at patient's floor/unit and/or counseling patient: Coding Level of Care Code 03043 Subseq Hosp Care Lvl 3 Diagnoses Vomiting R11.10
[2019-08-24] MEDS ORDERED: POTASSIUM CHLORIDE 40 MEQ in SODIUM CHLORIDE 0.45 % 1,000 ML IV SCH (13:30)
--- NOTE | 2019-08-24 15:56 | Gastroenterology Progress Note ---
Date of Service August 24, 2019 cc f/u n/v HPI Pt tolerating solid diet small quantities but is regurgitating at times. States had another BM today No abd pain. Assessment & Plan (1) Vomiting: Workup has included EGD showing erosive gastriritis and duodenitis but not necessarily to the level to explain symtoms, TSH normal, CT a/p no explanation. The HIDA scan with low EF may be contributing to this as I have seen n/v in the past improved post cholecystectomy. Head CT no obvious central etiology. Cortisol today high not low so not Addisons. Recommend small, frequent meals. gallstones/low EF--may be contributing but surgery does not feel likely. folic acid deficiency--on supplement. PUD--on PPI and carafate elevated ferrritin, elevated Fe sat--check hemochromatosis genetic testing but ferrtin could be acute phase reactant Admission and Anticipated Discharge Date Admission Date: August 14, 2019 Review of Systems Respiratory: no dyspnea Cardiovascular: no chest pain Physical Exam Constitutional: WD/WN, vitals as above Respiratory: normal respiratory effort, lungs clear to auscultation Cardiovascular: RRR, no murmur, no edema Gastrointestinal (Abdomen): normal bowel sounds, soft, nontender, no hepatosplenomegaly Psychiatric: A+Ox3, euthymic affect Results & Data ([facility]) Vital Signs (Past 12 Hours) Vital Signs Temp Pulse Resp BP Pulse Ox 08/24/19 07:00 37.4 C 81 18 138/75 92
--- NOTE | 2019-08-24 22:41 | Hospitalist Progress Note ---
Date of Service August 24, 2019 Assessment & Plan (1) Vomiting: Presumably due to gastritis/gastropathy/ulcers, worsened by uremia from kidney failure. - Presently still with symptoms. -Unable to tolerate gastric emptying study. -May consider repeating tomorrow. -gALLBALDDER MAY BE CONTRIBUTING. -AM cortisol level was elevated. -Will try smaller more frequent meals. - Treating with Zofran and Compazine PRN. Phenergan made him feel loopy, and he doesn't want to try again. - Consulted GI: feel symptoms are coming from gallbladder, may benefit from cholecystectomy. Consulted Gen surgery: surgery does not feel it will be beneficial. May consider discharge over next 24-48 hours. 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 Uric acid was 25 initially. - Appreciate nephrology consult - Renal ultrasound on 08/[address] a/p on 08/14/2019 showed no major abnormalities. - GISELE/ANCA ordered. - Continue IV fluids per nephrology -> Had a anion gap metabolic acidosis initially which has resolved. 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 - RESOLVED. will need estuardo monitor electrolytes. (3) Hematemesis: Occurred mildly overnight (a few bloody streaks) overnight of 08/15, then one episode of micha hematemesis on the morning of 08/16. EGD on 08/16 showed 2 ulcers (one gastric and one duodenal) and gastropathy. - Continue PPI IV BID -> Will switch to PO when less emesis. - GI consulted -> Appreciate assistance. - Monitor hgb -> Drifting down, but still >11. Now 11.9 today. No further hematochezia. Continue PPI BID x 4 weeks, then daily after that. Still on IV PPI with frequent emesis. (4) Thrombocytopenia: Platelets were 160 when he was admitted (baseline ~200). - Down to 86 on 08/16. Likely suppression from acute illness. HIT unlikely as 4T score is only 3 (too fast for HIT, no thrombosis seen, other causes). - Holding heparin for hematemesis; monitor plts. - Recovering at 104. (5) Hypertension: BP presently 150/75. - Holding losartan and spironolactone for SHAGGY - bp BETTER controlled. continue amlodipine (6) Chronic back pain: Long-standing back pain from old injuries. - Hold methocarbamol for now - Tylenol PRN (7) DVT prophylaxis: Holding heparin for hematemesis. Admission and Anticipated Discharge Date Admission Date: August 14, 2019 Subjective Patient reports he is doing well. He contiues to have nausea, but is tolerating his food more with the small frequent meals. Review of Systems Review of Systems: All systems reviewed & are unremarkable except as noted in HPI & below Physical Exam Physical Exam: Constitutional: WD/WN, vitals as above, no longer in distress Eyes: EOM intact bilaterally; no conjunctival abnormality ENMT: external ear and nose normal, oropharynx normal Neck: trachea midline, no thyromegaly normal visual inspection Respiratory: normal respiratory effort, lungs clear to auscultation no respiratory distress Cardiovascular: RRR, no murmur, no edema Gastrointestinal (Abdomen): Inspection/Auscultation: abdomen normal to inspection; abdomen not distended Percussion/Palpation: abdomen soft; abdomen nontender, no guarding and abdomen not rigid Musculoskeletal: no cyanosis or clubbing, extremities motor strength 5/5 Skin: no rashes, warm and dry Neurologic: moves all extremities and awake Psychiatric: Orientation: alert, oriented to person and cooperative PG Care Time/CCT Total # of Minutes Spent Total Time Spent with Patient: Total time spent is greater than 50% in coordination of care (as documented) at patient's floor/unit and/or counseling patient: Coding Level of Care Code 27985 Subseq Hosp Care Lvl 2 Diagnoses Vomiting R11.10 SHGAGY (acute kidney injury) N17.9 Hematemesis K92.0 Thrombocytopenia D69.6 Hypertension I10 Chronic back pain M54.9; G89.29 DVT prophylaxis Z29.9 Time Spent (min) 25
[2019-08-25 05:59] LABS: Basophils # (auto) 0.01 K/uL (0-0.2); Basophils % (auto) 0.1 %; Eosinophils # (auto) 0.06 K/uL (0-0.5); Eosinophils % (auto) 0.8 %; Hematocrit (blood only) 35.5 % (42-52); Hemoglobin 11.6 g/dL (14.0-18.0); Immature Granulocytes # (auto) 0.02 K/uL (0.00-0.02); Immature Granulocytes % (auto) 0.3 %; Lymphocytes # (auto) 0.86 K/uL (1.2-3.4); Lymphocytes % (auto) 12.1 %; Mean Corpuscular Hemoglobin 31.5 pg (25-34); Mean Corpuscular Hgb Conc 32.7 g/dL (32-36); Mean Corpuscular Volume 96.5 fL (80-100); Mean Platelet Volume 11.7 fL (7.4-10.4); Monocytes # (auto) 0.35 K/uL (0.11-0.59); Monocytes % (auto) 4.9 %; Neutrophils # (auto) 5.83 K/uL (1.4-6.5); Neutrophils % (auto) 81.8 %; Platelet Count 138 K/uL (130-400); RDW Coefficient of Variation 12.6 % (11.5-14.5); RDW Standard Deviation 44.3 fL (36.4-46.3); Red Blood Count 3.68 M/uL (4.7-6.1); White Blood Count 7.13 K/uL (4.8-10.8)
[2019-08-25 06:32] LABS: Albumin Level 2.6 gm/dl (3.4-5.0); BUN Creatinine Ratio 18.1 (10-20); Calcium 8.6 mg/dl (8.5-10.1); Creatinine Clr Calc Pharmacy 101.9 ml/min; Est GFR (African American) 114.7; Est GFR (Non-African American) 98.9; Potassium 2.8 mmol/L (3.5-5.1)
[2019-08-25 06:34] LABS: Albumin Globulin Ratio 0.7 (0.9-2); Total Protein 6.6 gm/dl (6.4-8.2)
[2019-08-25] MEDS: PANTOprazole 40 MG in SYRINGE 0 ML IV SCH ×2 (07:45→20:54)
[2019-08-25] MEDS: SUCRALFATE 1 GM/10 ML UDC PO SCH ×4 (07:45→20:54)
[2019-08-25] MEDS: FOLIC ACID 1 MG in SYRINGE 9.8 ML IV SCH (07:45)
[2019-08-25] MEDS: ONDANSETRON INJ 2 MG/ML 2 ML VIAL IV PRN (11:42)
[2019-08-25] MEDS: POTASSIUM CHLORIDE / WTR 10 MEQ/100 ML PLCT IV SCH ×4 (11:42→16:32)
[2019-08-25] MEDS: AMLODIPINE BESYLATE 5 MG TAB PO SCH (11:43)
--- NOTE | 2019-08-25 16:06 | Gastroenterology Progress Note ---
Date of Service August 25, 2019 Assessment & Plan (1) Vomiting: Workup has included EGD showing erosive gastriritis and duodenitis but not necessarily to the level to explain symtoms, TSH normal, CT a/p no explanation. The HIDA scan with low EF may be contributing to this as I have seen n/v in the past improved post cholecystectomy. Head CT no obvious central etiology. Cortisol high not low so not Addisons. Recommend small, frequent meals. gallstones/low EF--may be contributing but surgery does not feel likely. folic acid deficiency--on supplement. PUD--on PPI and carafate---recommend repeat EGD as outpt in 8 weeks. Stool for H.pylori ordered but not collected. polyp in 2nd duodenum---noted on DR Puentes consult but not on EGD report--evaluate at time of repeat EGD. elevated ferrritin, elevated Fe sat--check hemochromatosis genetic testing but ferrtin could be acute phase reactant Admission and Anticipated Discharge Date Admission Date: August 14, 2019 Subjective cc f/u n/v HPI Pt was sent for attempt at gastric empyting this am but declined because he cannot tolerate volume of food to do the test. No abd pain. Is regurgitating some. He feels like overall fluid intake is improving. No bms today. Review of Systems Respiratory: no dyspnea Cardiovascular: no chest pain Physical Exam Constitutional: WD/WN, vitals as above Respiratory: normal respiratory effort, lungs clear to auscultation Cardiovascular: RRR, no murmur, no edema Gastrointestinal (Abdomen): normal bowel sounds, soft, nontender, no hepatosplenomegaly Psychiatric: A+Ox3, euthymic affect Results & Data ([facility]) Vital Signs (Past 12 Hours) Vital Signs Temp Pulse Resp BP Pulse Ox 08/25/19 14:51 36.9 C 97 H 18 167/88 H 94 08/25/19 11:19 37.8 C H 92 H 18 156/82 H 92 08/25/19 07:43 37.6 C H 72 18 156/83 H 93
[2019-08-25 19:27] LABS: Magnesium 1.3 mg/dl (1.8-2.4); Phosphorus 2.1 mg/dl (2.5-4.9)
[2019-08-25] MEDS ORDERED: POTASSIUM PHOS 3 MMOL/1 ML INFUSION IV STA (22:43)
--- NOTE | 2019-08-25 22:44 | Hospitalist Progress Note ---
Date of Service August 25, 2019 Assessment & Plan (1) Vomiting: Presumably due to gastritis/gastropathy/ulcers, worsened by uremia from kidney failure. - Presently still with symptoms. -Unable to tolerate gastric emptying study. -May consider repeating tomorrow. -GALLBALDDER MAY BE CONTRIBUTING. -AM cortisol level was elevated. -Will try smaller more frequent meals. - Treating with Zofran and Compazine PRN. Phenergan made him feel loopy, and he doesn't want to try again. - Consulted GI: feel symptoms are coming from gallbladder, may benefit from cholecystectomy. Consulted Gen surgery: surgery does not feel it will be beneficial. May consider discharge over next 24-48 hours. This is being held by low electrolytes. (2) SHAGGY (acute kidney injury): . - RESOLVED with IV fluids. will need estuardo monitor electrolytes. (3) Hematemesis: Occurred mildly overnight (a few bloody streaks) overnight of 08/15, then one episode of micha hematemesis on the morning of 08/16. EGD on 08/16 showed 2 ulcers (one gastric and one duodenal) and gastropathy. - Continue PPI IV BID -> Will switch to PO when less emesis. - GI consulted -> Appreciate assistance. - Monitor hgb -> Drifting down, but still >11. Now 11.9 today. No further hematochezia. Continue PPI BID x 4 weeks, then daily after that. Still on IV PPI with frequent emesis. (4) Thrombocytopenia: Platelets were 160 when he was admitted (baseline ~200). - Down to 86 on 08/16. Likely suppression from acute illness. HIT unlikely as 4T score is only 3 (too fast for HIT, no thrombosis seen, other causes). - Holding heparin for hematemesis; monitor plts. - Recovering at 104. (5) Hypertension: BP presently 150/75. - Holding losartan and spironolactone for SHAGGY - bp BETTER controlled. continue amlodipine (6) Chronic back pain: Long-standing back pain from old injuries. - Hold methocarbamol for now - Tylenol PRN (7) Hypokalemia: May be secondary to refeeding syndrome. will check other electrolytes: mag and phos and replace as necessary. Will hold discharge due to low potassium. (8) DVT prophylaxis: Holding heparin for hematemesis. Admission and Anticipated Discharge Date Admission Date: August 14, 2019 Subjective 64 YO m reports that he continues to have nausea and vomiting. But it has improved. He did not tolerate the gastric empyting prep. He states he is able to tolerate smaller meals. Review of Systems Review of Systems: All systems reviewed & are unremarkable except as noted in HPI & below Physical Exam Physical Exam: Constitutional: WD/WN, vitals as above, no longer in distress Eyes: EOM intact bilaterally; no conjunctival abnormality ENMT: external ear and nose normal, oropharynx normal Neck: trachea midline, no thyromegaly normal visual inspection Respiratory: normal respiratory effort, lungs clear to auscultation no respiratory distress Cardiovascular: RRR, no murmur, no edema Gastrointestinal (Abdomen): Inspection/Auscultation: abdomen normal to inspection; abdomen not distended Percussion/Palpation: abdomen soft; abdomen nontender, no guarding and abdomen not rigid Musculoskeletal: no cyanosis or clubbing, extremities motor strength 5/5 Skin: no rashes, warm and dry Neurologic: moves all extremities and awake Psychiatric: Orientation: alert, oriented to person and cooperative Results & Data Results & Data ([facility]) Vital Signs (Past 12 Hours) Vital Signs Temp Pulse Resp BP Pulse Ox 08/25/19 20:12 37.2 C 91 H 19 155/87 H 98 08/25/19 14:51 36.9 C 97 H 18 167/88 H 94 08/25/19 11:19 37.8 C H 92 H 18 156/82 H 92 PG Care Time/CCT Total # of Minutes Spent Total Time Spent with Patient: Total time spent is greater than 50% in coordination of care (as documented) at patient's floor/unit and/or counseling patient: Coding Level of Care Code 75859 Subseq Hosp Care Lvl 3 Diagnoses Vomiting R11.10 SHAGGY (acute kidney injury) N17.9 Hematemesis K92.0 Thrombocytopenia D69.6 Hypertension I10 Chronic back pain M54.9; G89.29 Hypokalemia E87.6 DVT prophylaxis Z29.9 Time Spent (min) 35
[2019-08-25] MEDS ORDERED: POTASSIUM PHOSPHATE 21 MMOL in SODIUM CHLORIDE 0.9% 500 ML IV ONE (23:00)
[2019-08-25] MEDS: MAGNESIUM SULFATE / D5W 1 GM/100 ML BAG IV SCH (23:39)
[2019-08-26] MEDS: MAGNESIUM SULFATE / D5W 1 GM/100 ML BAG IV SCH (00:40)
[2019-08-26 06:17] LABS: Eosinophils # (auto) 0.23 K/uL (0-0.5); Eosinophils % (auto) 3.9 %; Hematocrit (blood only) 34.9 % (42-52); Hemoglobin 11.6 g/dL (14.0-18.0); Immature Granulocytes # (auto) 0.01 K/uL (0.00-0.02); Immature Granulocytes % (auto) 0.2 %; Lymphocytes # (auto) 0.94 K/uL (1.2-3.4); Mean Corpuscular Hemoglobin 31.4 pg (25-34); Mean Corpuscular Hgb Conc 33.2 g/dL (32-36); Mean Corpuscular Volume 94.6 fL (80-100); Mean Platelet Volume 11.7 fL (7.4-10.4); Monocytes # (auto) 0.32 K/uL (0.11-0.59); Monocytes % (auto) 5.5 %; Neutrophils # (auto) 4.37 K/uL (1.4-6.5); Neutrophils % (auto) 74.4 %; Platelet Count 147 K/uL (130-400); RDW Coefficient of Variation 12.6 % (11.5-14.5); RDW Standard Deviation 43.3 fL (36.4-46.3); Red Blood Count 3.69 M/uL (4.7-6.1); White Blood Count 5.87 K/uL (4.8-10.8)
[2019-08-26 06:50] LABS: Albumin Level 2.4 gm/dl (3.4-5.0); BUN Creatinine Ratio 20.5 (10-20); Calcium 7.8 mg/dl (8.5-10.1); Creatinine Clr Calc Pharmacy 127.8 ml/min; Est GFR (African American) 125.9; Est GFR (Non-African American) 108.6; Potassium 2.7 mmol/L (3.5-5.1)
[2019-08-26 06:53] LABS: Albumin Globulin Ratio 0.6 (0.9-2); Bilirubin,Total 0.9 mg/dl (0.2-1); Globulin 4.2 gm/dl (2.5-4.0); Total Protein 6.6 gm/dl (6.4-8.2)
[2019-08-26] MEDS: SUCRALFATE 1 GM/10 ML UDC PO SCH ×4 (08:42→21:05)
[2019-08-26] MEDS: FOLIC ACID 1 MG in SYRINGE 9.8 ML IV SCH (08:42)
[2019-08-26] MEDS: AMLODIPINE BESYLATE 5 MG TAB PO SCH (08:42)
[2019-08-26 09:01] LABS: Magnesium 1.8 mg/dl (1.8-2.4); Phosphorus 2.5 mg/dl (2.5-4.9)
[2019-08-26] MEDS: POTASSIUM CHLORIDE / WTR 10 MEQ/100 ML PLCT IV SCH ×8 (09:38→21:04)
[2019-08-26] MEDS: PANTOprazole 40 MG in SYRINGE 0 ML IV SCH ×2 (09:38→22:19)
--- NOTE | 2019-08-26 15:58 | Gastroenterology Progress Note ---
Date of Service August 26, 2019 Assessment & Plan (1) Vomiting: Improved----Workup has included EGD showing erosive gastriritis and duodenitis but not necessarily to the level to explain symtoms, TSH normal, CT a/p no explanation. The HIDA scan with low EF may be contributing to this as I have seen n/v in the past improved post cholecystectomy. Head CT no obvious central etiology. Cortisol high not low so not Addisons. Recommend small, frequent meals. gallstones/low EF--may be contributing but surgery does not feel likely. folic acid deficiency--on supplement. PUD--on PPI and carafate---recommend repeat EGD as outpt in 8 weeks. Stool for H.pylori ordered but not collected. polyp in 2nd duodenum---noted on DR Puentes consult but not on EGD report--evaluate at time of repeat EGD. elevated ferrritin, elevated Fe sat--check hemochromatosis genetic testing but ferrtin could be acute phase reactant hypokalemia/hypophosphatemia/hypomagnesimia--managed by hospitalist--spoke with DR Rich perhaps refeeding syndrome. Admission and Anticipated Discharge Date Admission Date: August 14, 2019 Subjective cc f/u n/v HPI Pt states tolerating solid diet and has not spit up/vomited anything today. No abd pain. No stools today. Review of Systems Respiratory: no dyspnea Cardiovascular: no chest pain Physical Exam Constitutional: WD/WN, vitals as above Respiratory: normal respiratory effort, lungs clear to auscultation Cardiovascular: RRR, no murmur, no edema Gastrointestinal (Abdomen): normal bowel sounds, soft, nontender, no hepatosplenomegaly Neurologic: PERRL, EOMI, accommodation nl, no face palsy, no dysarthria Psychiatric: A+Ox3, euthymic affect Results & Data ([facility]) Vital Signs (Past 12 Hours) Vital Signs Temp Pulse Pulse Resp BP Pulse Ox 08/26/19 14:58 37.3 C 90 18 140/74 93 08/26/19 07:37 37.6 C H 89 18 151/79 H 93
[2019-08-26] MEDS: POTASSIUM CHLORIDE PWD 20 MEQ PACK PO SCH ×2 (17:26→21:05)
--- NOTE | 2019-08-26 23:05 | Hospitalist Progress Note ---
Date of Service August 26, 2019 Assessment & Plan (1) Vomiting: Presumably due to gastritis/gastropathy/ulcers, worsened by uremia from kidney failure. - Feeling better, and tolerating food. -Unable to tolerate gastric emptying study. -GALLBALDDER MAY BE CONTRIBUTING. -AM cortisol level was elevated. - Treating with Zofran and Compazine PRN. Phenergan made him feel loopy, and he doesn't want to try again. - Consulted GI: feel symptoms are coming from gallbladder, may benefit from cholecystectomy. Consulted Gen surgery: surgery does not feel it will be beneficial. May consider discharge over next 24-48 hours. This is being held by low electrolytes. likely from reffeding syndrome. (2) SHAGGY (acute kidney injury): . - RESOLVED with IV fluids. will need estuardo monitor electrolytes. (3) Hematemesis: Occurred mildly overnight (a few bloody streaks) overnight of 08/15, then one episode of micha hematemesis on the morning of 08/16. EGD on 08/16 showed 2 ulcers (one gastric and one duodenal) and gastropathy. - Continue PPI IV BID -> Will switch to PO when less emesis. - GI consulted -> Appreciate assistance. - Monitor hgb -> Drifting down, but still >11. Now 11.9 today. No further hematochezia. Continue PPI BID x 4 weeks, then daily after that. Still on IV PPI with frequent emesis. (4) Thrombocytopenia: Platelets were 160 when he was admitted (baseline ~200). - Down to 86 on 08/16. Likely suppression from acute illness. HIT unlikely as 4T score is only 3 (too fast for HIT, no thrombosis seen, other causes). - Holding heparin for hematemesis; monitor plts. - Recovering at 104. (5) Hypertension: BP presently 150/75. - Holding losartan and spironolactone for SHAGGY - bp BETTER controlled. continue amlodipine (6) Chronic back pain: Long-standing back pain from old injuries. - Hold methocarbamol for now - Tylenol PRN (7) Hypokalemia: May be secondary to refeeding syndrome. will check other electrolytes: mag and phos and replace as necessary. Will hold discharge due to low potassium. (8) DVT prophylaxis: Holding heparin for hematemesis. Admission and Anticipated Discharge Date Admission Date: August 14, 2019 Subjective Patient reports he is feeling well. Hids nausea and vomiting has improved. Review of Systems Review of Systems: All systems reviewed & are unremarkable except as noted in HPI & below Physical Exam Physical Exam: Constitutional: WD/WN, vitals as above, no longer in distress Eyes: EOM intact bilaterally; no conjunctival abnormality ENMT: external ear and nose normal, oropharynx normal Neck: trachea midline, no thyromegaly normal visual inspection Respiratory: normal respiratory effort, lungs clear to auscultation no respiratory distress Cardiovascular: RRR, no murmur, no edema Gastrointestinal (Abdomen): Inspection/Auscultation: abdomen normal to inspection; abdomen not distended Percussion/Palpation: abdomen soft; abdomen nontender, no guarding and abdomen not rigid Musculoskeletal: no cyanosis or clubbing, extremities motor strength 5/5 Skin: no rashes, warm and dry Neurologic: moves all extremities and awake Psychiatric: Orientation: alert, oriented to person and cooperative Results & Data Results & Data ([facility]) Vital Signs (Past 12 Hours) Vital Signs Temp Pulse Resp BP Pulse Ox 08/26/19 14:58 37.3 C 90 18 140/74 93 PG Care Time/CCT Total # of Minutes Spent Total Time Spent with Patient: Total time spent is greater than 50% in coordination of care (as documented) at patient's floor/unit and/or counseling patient: Coding Level of Care Code 62434 Subseq Hosp Care Lvl 2 Diagnoses Vomiting R11.10 SHAGGY (acute kidney injury) N17.9 Hematemesis K92.0 Thrombocytopenia D69.6 Hypertension I10 Chronic back pain M54.9; G89.29 Hypokalemia E87.6 DVT prophylaxis Z29.9 Time Spent (min) 25
[2019-08-27 06:03] LABS: Basophils # (auto) 0.01 K/uL (0-0.2); Basophils % (auto) 0.2 %; Eosinophils # (auto) 0.14 K/uL (0-0.5); Eosinophils % (auto) 2.5 %; Hematocrit (blood only) 36.8 % (42-52); Hemoglobin 11.9 g/dL (14.0-18.0); Immature Granulocytes # (auto) 0.03 K/uL (0.00-0.02); Immature Granulocytes % (auto) 0.5 %; Lymphocytes # (auto) 0.83 K/uL (1.2-3.4); Lymphocytes % (auto) 14.7 %; Mean Corpuscular Hgb Conc 32.3 g/dL (32-36); Mean Corpuscular Volume 95.8 fL (80-100); Mean Platelet Volume 11.4 fL (7.4-10.4); Monocytes # (auto) 0.49 K/uL (0.11-0.59); Monocytes % (auto) 8.7 %; Neutrophils # (auto) 4.14 K/uL (1.4-6.5); Neutrophils % (auto) 73.4 %; Platelet Count 164 K/uL (130-400); RDW Coefficient of Variation 12.8 % (11.5-14.5); Red Blood Count 3.84 M/uL (4.7-6.1); White Blood Count 5.64 K/uL (4.8-10.8)
[2019-08-27 06:27] LABS: Albumin Level 2.6 gm/dl (3.4-5.0); BUN Creatinine Ratio 21.8 (10-20); Creatinine Clr Calc Pharmacy 137.8 ml/min; Est GFR (African American) 129.8; Magnesium 1.7 mg/dl (1.8-2.4); Potassium 2.9 mmol/L (3.5-5.1)
[2019-08-27 06:38] LABS: Albumin Globulin Ratio 0.6 (0.9-2); Bilirubin,Total 1.1 mg/dl (0.2-1); Globulin 4.5 gm/dl (2.5-4.0); Phosphorus 1.6 mg/dl (2.5-4.9); Total Protein 7.1 gm/dl (6.4-8.2)
[2019-08-27] MEDS: AMLODIPINE BESYLATE 5 MG TAB PO SCH (08:37)
[2019-08-27] MEDS: SUCRALFATE 1 GM/10 ML UDC PO SCH ×4 (08:38→20:45)
[2019-08-27] MEDS: PANTOprazole 40 MG in SYRINGE 0 ML IV SCH ×2 (08:39→20:46)
[2019-08-27] MEDS: FOLIC ACID 1 MG in SYRINGE 9.8 ML IV SCH (08:39)
[2019-08-27] MEDS ORDERED: POTASSIUM PHOS 3 MMOL/1 ML INFUSION IV STA ×4 (09:29→22:21)
[2019-08-27] MEDS: MAGNESIUM SULFATE / D5W 1 GM/100 ML BAG IV SCH ×2 (09:59→12:03)
[2019-08-27] MEDS ORDERED: POTASSIUM PHOSPHATE 21 MMOL in SODIUM CHLORIDE 0.9% 500 ML IV ONE (10:00)
[2019-08-27] MEDS ORDERED: POTASSIUM PHOSPHATE 30 MMOL in SODIUM CHLORIDE 0.9% 500 ML IV ONE ×2 (10:00→22:30)
[2019-08-27] MEDS: POTASSIUM CHLORIDE PWD 20 MEQ PACK PO SCH (10:10)
[2019-08-27] MEDS: POTASSIUM CHLORIDE 20 MEQ TABCR PO SCH ×2 (10:32→20:47)
--- NOTE | 2019-08-27 15:38 | Gastroenterology Progress Note ---
Date of Service August 27, 2019 Assessment & Plan (1) Vomiting: worsening againg---Workup has included EGD showing erosive gastriritis and duodenitis but not necessarily to the level to explain symtoms, TSH normal, CT a/p no explanation. The HIDA scan with low EF may be contributing to this as I have seen n/v in the past improved post cholecystectomy. Head CT no obvious central etiology. Cortisol high not low so not Addisons. Recommend small, frequent meals. gallstones/low EF--may be contributing but surgery does not feel likely. folic acid deficiency--on supplement. PUD--on PPI and carafate---recommend repeat EGD as outpt in 8 weeks. Stool for H.pylori ordered but not collected. polyp in 2nd duodenum---noted on DR Puentes consult but not on EGD report--evaluate at time of repeat EGD. elevated ferrritin, elevated Fe sat--check hemochromatosis genetic testing but ferrtin could be acute phase reactant hypokalemia/hypophosphatemia/hypomagnesimia--managed by hospitalist--spoke with DR Rich perhaps refeeding syndrome. The patient is doing better than on admission with regard to po intake but I am worried about his ability to maintain adequate po intake at home. If he continues to have problems I would consider transfer to tertiary center. Admission and Anticipated Discharge Date Admission Date: August 14, 2019 Subjective CC f/u n/v HPI Pt on po potassium and states did not tolerate powder potassium and complains the pills are big even wtih breaking them up. Pt spitting up/regurgitating today including need to do it while I was in the room. Physical Exam Constitutional: WD/WN, vitals as above Respiratory: normal respiratory effort, lungs clear to auscultation Cardiovascular: RRR, no murmur, no edema Gastrointestinal (Abdomen): normal bowel sounds, soft, nontender, no hepatosplenomegaly Neurologic: PERRL, EOMI, accommodation nl, no face palsy, no dysarthria Psychiatric: A+Ox3, euthymic affect Results & Data ([facility]) Vital Signs (Past 12 Hours) Vital Signs Temp Pulse Resp BP Pulse Ox 08/27/19 15:22 36.4 C L 117 H 17 138/86 97 08/27/19 07:39 37.6 C H 08/27/19 06:46 38.0 C H 95 H 20 155/84 H 95
[2019-08-27] MEDS: POTASSIUM CHLORIDE / WTR 10 MEQ/100 ML PLCT IV SCH ×4 (15:49→19:22)
--- NOTE | 2019-08-27 21:24 | Hospitalist Progress Note ---
Date of Service August 27, 2019 Assessment & Plan (1) Refeeding syndrome: Main reason why patient remains in the hospital. CONTINUING TO REPLENISH HIS PHOS AND POTASSIUM. His mag has also been low. likely exacerbated by not eating for a long period of time due to his recurrent nausea. (2) Vomiting: Presumably due to gastritis/gastropathy/ulcers, worsened by uremia from kidney failure. - Feeling better, and tolerating food. -Unable to tolerate gastric emptying study. -GALLBALDDER MAY BE CONTRIBUTING. -AM cortisol level was elevated. - Treating with Zofran and Compazine PRN. Phenergan made him feel loopy, and he doesn't want to try again. - Consulted GI: feel symptoms are coming from gallbladder, may benefit from cholecystectomy. Consulted Gen surgery: surgery does not feel it will be beneficial. May consider discharge over next 24-48 hours. This is being held by low electrolytes. likely from reffeding syndrome. (3) SHAGGY (acute kidney injury): . - RESOLVED with IV fluids. will need estuardo monitor electrolytes. (4) Hematemesis: Occurred mildly overnight (a few bloody streaks) overnight of 08/15, then one episode of micha hematemesis on the morning of 08/16. EGD on 08/16 showed 2 ulcers (one gastric and one duodenal) and gastropathy. - Continue PPI IV BID -> Will switch to PO when less emesis. - GI consulted -> Appreciate assistance. - Monitor hgb -> Drifting down, but still >11. Now 11.9 today. No further hematochezia. Continue PPI BID x 4 weeks, then daily after that. Still on IV PPI with frequent emesis. (5) Thrombocytopenia: Platelets were 160 when he was admitted (baseline ~200). - Down to 86 on 08/16. Likely suppression from acute illness. HIT unlikely as 4T score is only 3 (too fast for HIT, no thrombosis seen, other causes). - Holding heparin for hematemesis; monitor plts. - Recovering at 104. (6) Hypertension: BP presently 150/75. - Holding losartan and spironolactone for SHAGGY - bp BETTER controlled. continue amlodipine (7) Chronic back pain: Long-standing back pain from old injuries. - Hold methocarbamol for now - Tylenol PRN (8) Hypokalemia: May be secondary to refeeding syndrome. will check other electrolytes: mag and phos and replace as necessary. Will hold discharge due to low potassium. (9) DVT prophylaxis: Holding heparin for hematemesis. Admission and Anticipated Discharge Date Admission Date: August 14, 2019 Subjective 64 yo male reports feeling well. HE REPORTS he is eating a little more today than he did yesterday. He also had a BM today. Patient currently refusing tertiary transfer as he feels he s improving. D/W GI. Review of Systems Review of Systems: All systems reviewed & are unremarkable except as noted in Subjective Physical Exam Physical Exam: Constitutional: WD/WN, vitals as above, no longer in distress Eyes: EOM intact bilaterally; no conjunctival abnormality ENMT: external ear and nose normal, oropharynx normal Neck: trachea midline, no thyromegaly normal visual inspection Respiratory: normal respiratory effort, lungs clear to auscultation no respiratory distress Cardiovascular: RRR, no murmur, no edema Gastrointestinal (Abdomen): Inspection/Auscultation: abdomen normal to inspection; abdomen not distended Percussion/Palpation: abdomen soft; abdomen nontender, no guarding and abdomen not rigid Musculoskeletal: no cyanosis or clubbing, extremities motor strength 5/5 Skin: no rashes, warm and dry Neurologic: moves all extremities and awake Psychiatric: Orientation: alert, oriented to person and cooperative Results & Data Results & Data ([facility]) Vital Signs (Past 12 Hours) Vital Signs Temp Pulse Resp BP Pulse Ox 08/27/19 15:35 91 H 14 08/27/19 15:22 36.4 C L 117 H 17 138/86 97 PG Care Time/CCT Total # of Minutes Spent Total Time Spent with Patient: Total time spent is greater than 50% in coordination of care (as documented) at patient's floor/unit and/or counseling patient: Coding Level of Care Code 30569 Subseq Hosp Care Lvl 3 Diagnoses Refeeding syndrome E87.8 Vomiting R11.10 SHAGGY (acute kidney injury) N17.9 Hematemesis K92.0 Thrombocytopenia D69.6 Hypertension I10 Chronic back pain M54.9; G89.29 Hypokalemia E87.6 DVT prophylaxis Z29.9 Time Spent (min) 35
[2019-08-27 21:52] LABS: Potassium 3.2 mmol/L (3.5-5.1)
[2019-08-27 22:08] LABS: Magnesium 1.8 mg/dl (1.8-2.4); Phosphorus 1.4 mg/dl (2.5-4.9)
[2019-08-28 05:25] LABS: Basophils # (auto) 0.04 K/uL (0-0.2); Basophils % (auto) 0.7 %; Eosinophils # (auto) 0.09 K/uL (0-0.5); Eosinophils % (auto) 1.6 %; Hemoglobin 11.9 g/dL (14.0-18.0); Immature Granulocytes # (auto) 0.02 K/uL (0.00-0.02); Immature Granulocytes % (auto) 0.4 %; Lymphocytes # (auto) 0.78 K/uL (1.2-3.4); Lymphocytes % (auto) 13.9 %; Mean Corpuscular Hemoglobin 31.2 pg (25-34); Mean Corpuscular Hgb Conc 33.1 g/dL (32-36); Mean Corpuscular Volume 94.2 fL (80-100); Mean Platelet Volume 11.5 fL (7.4-10.4); Monocytes # (auto) 0.47 K/uL (0.11-0.59); Monocytes % (auto) 8.4 %; Platelet Count 171 K/uL (130-400); RDW Coefficient of Variation 12.8 % (11.5-14.5); RDW Standard Deviation 43.5 fL (36.4-46.3); Red Blood Count 3.82 M/uL (4.7-6.1)
[2019-08-28 05:53] LABS: Albumin Level 2.5 gm/dl (3.4-5.0); BUN Creatinine Ratio 19.8 (10-20); Calcium 7.7 mg/dl (8.5-10.1); Creatinine Clr Calc Pharmacy 132.6 ml/min; Est GFR (African American) 127.8; Est GFR (Non-African American) 110.3; Magnesium 1.7 mg/dl (1.8-2.4); Potassium 3.3 mmol/L (3.5-5.1)
[2019-08-28 06:07] LABS: Albumin Globulin Ratio 0.6 (0.9-2); Globulin 4.5 gm/dl (2.5-4.0); Phosphorus 2.7 mg/dl (2.5-4.9)
--- NOTE | 2019-08-28 07:30 | Surgery Progress Note ---
Date of Service August 28, 2019 Assessment & Plan (1) Vomiting: Patient making some small improvements with diet intake compared to prior Gastric emptying study ordered for today, hopefully patient will tolerate Unlikely gallbladder contributing to symptoms at this time We will continue to follow 08/24/19 At this point the patient seems to be improving was unable to get it gastric emptying study yesterday My recommendations would be to discharge the patient and to follow-up with us on a as needed basis if any new issues should arise regarding possibility of the gallbladder becomes an issue 08/27/19 The patient is doing very well he is able to tolerate a diet now even eating a ham and cheese sandwich did not bother him he has no abdominal findings at this point I recommend the patient once discharged to follow-up up with us in our clinic if issues persist or develop some pain in right upper quadrant of her abdomen I asked him that he stay on a low-fat diet Suspect the gallbladder will eventually need to be addressed but at this time seems like electrolyte imbalance and other issues was the problem regarding unable to eat and emesis Subjective Patient overall feels much better yesterday he had a regular diet including ham and cheese sandwich without any abdominal discomfort and no emesis he is looking forward to going home Physical Exam Physical Exam: He is resting comfortably no abdominal discomfort anxious to go home The abdomen is completely benign Results & Data Vital Signs (Past 12 Hours) Vital Signs Temp Pulse Resp BP Pulse Ox 08/28/19 06:51 36.7 C 93 H 16 157/93 H 97 08/27/19 22:51 37.0 C 95 H 18 133/75 97 PG Care Time/CCT Total # of Minutes Spent Total Time Spent with Patient: Total time spent is greater than 50% in coordination of care (as documented) at patient's floor/unit and/or counseling patient: Coding Level of Care Code 47170 Subseq Hosp Care Lvl 3 Diagnoses Vomiting R11.10
[2019-08-28] MEDS: MAGNESIUM SULFATE / D5W 1 GM/100 ML BAG IV SCH ×2 (09:00→11:06)
[2019-08-28] MEDS: POTASSIUM CHLORIDE / WTR 10 MEQ/100 ML PLCT IV SCH ×2 (09:00→10:12)
[2019-08-28] MEDS: PANTOprazole 40 MG in SYRINGE 0 ML IV SCH (09:01)
[2019-08-28] MEDS: SUCRALFATE 1 GM/10 ML UDC PO SCH ×2 (09:01→13:16)
[2019-08-28] MEDS: AMLODIPINE BESYLATE 5 MG TAB PO SCH (09:02)
[2019-08-28] MEDS: FOLIC ACID 1 MG in SYRINGE 9.8 ML IV SCH (09:02)
[2019-08-28] MEDS: POTASSIUM CHLORIDE 20 MEQ TABCR PO SCH (09:03)
--- NOTE | 2019-08-28 16:29 | Discharge Summary ---
Date of Service August 28, 2019 Admission HPI Per Admitting Provider For EGD Principal Diagnosis Nausea and vomiting from gastric and duodenal ulcer and renal failure Discharge Exam Constitutional WD/WN, vitals as above + acute distress Eyes EOM intact bilaterally; no conjunctival abnormality ENMT external ear and nose normal, oropharynx normal Neck trachea midline, no thyromegaly normal visual inspection Respiratory normal respiratory effort, lungs clear to auscultation no respiratory distress Cardiovascular RRR, no murmur, no edema Gastrointestinal (Abdomen) Inspection/Auscultation: abdomen normal to inspection; abdomen not distended Percussion/Palpation: abdomen soft; abdomen nontender, no guarding and abdomen not rigid Musculoskeletal no cyanosis or clubbing, extremities motor strength 5/5 Skin no rashes, warm and dry Neurologic moves all extremities and awake Psychiatric Orientation: alert, oriented to person and cooperative Discharge Data Allergies Allergy/AdvReac Type Severity Reaction Status Date / Time bee venom protein (honey bee) Allergy Severe ANAPHYLACTIC Verified 08/14/19 22:51 REACTION A CHILD Consultations 08/14/19 23:57 ED Decision to Admit Stat 08/17/19 09:02 Consult Gastroenterology Routine 08/21/19 15:50 Consult General Surgery Routine Procedures Performed Operation Date: 08/17/19 12:50 Actual Procedures p Esophagogastroduodenoscopy(Not Applicable) - Karl Puentes Ordered Studies 08/14/19 21:55 CT abd pelvis wo con Urgent CT head/brain wo con Urgent 08/15/19 07:30 US renal/blad retro comp Routine Hospital Course (1) Vomiting: Presumably due to gastritis/gastropathy/ulcers, worsened by uremia from kidney failure. - Presently still with symptoms. Treating with Zofran and Compazine PRN. Phenergan made him feel loopy, and he doesn't want to try again. - This is actually what kept him in the hospital. - On discharge, it had improved to the point of being able to take in PO food. 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 Uric acid was 25 initially. - Appreciate nephrology consult - Renal ultrasound on 06/[address] a/p on 08/14/2019 showed no major abnormalities. - GISELE/ANCA pending - Continue IV fluids per nephrology -> Had a anion gap metabolic acidosis initially which has resolved. 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 - RESOLVED. Still having some electrolyte imbalances, likely from poor PO intake x 2 weeks. (3) Hematemesis: Occurred mildly overnight (a few bloody streaks) overnight of 08/15, then one episode of micha hematemesis on the morning of 08/16. EGD on 08/16 showed 2 ulcers (one gastric and one duodenal) and gastropathy. - Continue PPI IV BID -> Will switch to PO when less emesis. - GI consulted -> Appreciate assistance. - Monitor hgb -> Drifting down, but still >11. Now 11.9 today. No further hematochezia. Continue PPI PO BID x 4 weeks, then daily after that. Follow up with GI in 2-3 weeks. (4) Thrombocytopenia: Platelets were 160 when he was admitted (baseline ~200). - Down to 86 on 08/16. Likely suppression from acute illness. HIT unlikely as 4T score is only 3 (too fast for HIT, no thrombosis seen, other causes). - Recovered to 171 by discharge. (5) Hypertension: BP presently 150/95. - Holding losartan and spironolactone for SHAGGY - Held amlodipine for normal BP initially; will restart today. (6) Chronic back pain: Long-standing back pain from old injuries. - Hold methocarbamol for now -> Lowered dose on discharge. - Tylenol PRN (7) DVT prophylaxis: Holding heparin for hematemesis. Total Time Total Time Spent Total Time Spent (In Minutes): 35 Discharge Plan Discharge Items Patient Disposition: Home - Self-Care Reason For Visit: WEAKNESS Discharge Diagnosis: Kidney failure & stomach & intestinal ulcers Activity: Resume your previous activity Non-emergency contact: Primary Care Provider and Coagulant Dipper Call non-emergency contact if: your symptoms worsen Follow-up/Referrals: Karl Puentes [Physician] - (Please see Dr. Puentes in 4 weeks or sooner if your nausea and vomiting.) Lobito Orourke Jr, DO [Primary Care Provider] - Diet: Regular Addtl Attending Provider Instructions: You were admitted to the hospital with nausea and vomiting and found to have kidney failure. We feel the kidney failure was caused by the daily aspirin you were taking along with dehydration from your nausea and vomiting as well as your blood pressure medications. Luckily, your nausea and vomiting have slowly improved with time and healing of your stomach as well as return to normal kidney function. Amazingly, your kidney function has returned entirely to normal with no residual damage noted to the kidneys on our labs. This is really quite miraculous. Overall, you have had some low electrolytes, but I do think these will return to normal as well with some time and further healing. Please DO NOT take aspirin any longer. For back pain or shoulder pain, take 1 or 2 Extra Strength Tyenol (500 mg per tablet). You can take this up to 2 times per day, but generally should stick with a total of 2 tablets a day. Tylenol is safe for your stomach and kidneys, and will not affect your liver as long as you take a generally low amount. Please note, I did stop your blood pressure medication called spironolactone. I don't want you to get re-dehydrated. Dr. Orourke may restart it or start a new blood pressure medication if you need it. Please follow up with Dr. Orourke next week (September 04) to check your potassium, magnesium, phosphorus, and kidney function. Hopefully, you only need the potassium for a short while and can stop it next week if it remains normal. If you have more nausea or vomiting, please give his office a call or go see Dr. Puentes in the GI office. Pending Studies at Discharge: No Stand-Alone Forms: My [facility] [employer], Smoking Cessation Medications and DC Order Prescriptions: New pantoprazole 40 mg tablet,delayed release (DR/EC) 40 mg PO BID 30 Days Qty: 60 RF: 0 potassium chloride 20 mEq/15 mL liquid 20 meq PO DAILY Qty: 1200 RF: 0 ondansetron HCl [Zofran] 4 mg tablet 4 mg PO TID PRN (Reason: nausea and vomiting) 4 Days Qty: 30 RF: 0 Continued amlodipine 10 mg tablet 10 mg PO DAILY RF: 0 epinephrine [EpiPen] 0.3 mg/0.3 mL Auto-Injector 0.3 mg IM DIRECTED PRN (Reason: Allergic Reaction) RF: 0 losartan 100 mg tablet 100 mg PO DAILY RF: 0 Changed methocarbamol 750 mg tablet 750 mg PO BID PRN (Reason: Back Pain) Qty: 0 RF: 0 Discontinued omeprazole 40 mg capsule,delayed release(DR/EC) 40 mg PO QAM RF: 0 spironolactone 25 mg tablet 25 mg PO DAILY RF: 0 metoclopramide HCl 10 mg tablet 10 mg PO .Q6-8HRS PRN (Reason: Nausea) RF: 0 Discharge Orders: Discharge Order (Routine); Ordered 08/28/19 Ordered By: Teofilo Terry/Other Patient Handouts: Hypokalemia Dc Admission Data Admit Date/Time: 08/14/19 23:42 Attending Provider: Teofilo Garibay Admit Provider: Deb Tirado Primary Care Provider: Lobito Orourke Jr Other Providers: Teofilo Garibay ; Karl Puentes ; Lobito Wilhelm Other Interventions: Discharge Summary Assessment (RN) Last Done: 08/28/19 10:36 DC Date/Time DO NOT enter until pt leaves facility: 08/28/19 14:22 Coding Level of Care Code D/C Day Management >30 mins Diagnoses Vomiting R11.10 SHAGGY (acute kidney injury) N17.9 Hematemesis K92.0 Thrombocytopenia D69.6 Hypertension I10 Chronic back pain M54.9; G89.29 DVT prophylaxis Z29.9
[2019-08-28] MEDS ORDERED: PANTOprazole 40 MG TAB PO SCH (21:00)
== END 2019-08-28 14:22 | disposition home or self-care (01) | DRG 683 ==
LOC: ED 20:58 → SUATTDRO 23:42 → 2W 23:42 → 3E 08-26 23:27

== ENCOUNTER 2019-09-09 01:50 | Inpatient (IN) ==
[2019-09-09] MEDS ORDERED: SODIUM CHLORIDE 0.9% 1000ML 1,000 ML IV SCH ×2 (02:15→05:56)
--- NOTE | 2019-09-09 02:24 | Emergency Department Note ---
Impression & Plan Acute hypernatremia, Acute kidney injury, Altered mental status ED Provider Note NAME: SHANIQUA GARCIA AGE: 64 SEX: M ARRIVES VIA: Ambulance INFORMANT: Patient, and the patient's and EMS ED PROVIDER(S): Renetta Phillips DO CHIEF COMPLAINT: Increasing confusion PLAN: Disposition: Admitted to the hospital by the [facility] Hospitalist group Condition: Guarded MEDICAL DECISION MAKING: This is a 64-year-old male patient who presents to the emergency department with increasing confusion and eating decreased oral intake over the past 48 hours. The patient has a recent history of severe dehydration and acute kidney injury for which she was hospitalized last month. The noticed that the patient had a significant decreased oral intake over the past 2 to 3 days and that the patient had started to become confused and was staring for the past 2 days. Laboratory studies here in the emergency department confirmed that the patient is severely dehydrated again and hyponatremic. He does have an elevated troponin. I discussed the case with the [facility] hospitalist and they will ev aluate for further management. Triage Nursing notes reviewed and agree them. Additional history obtained from EMS and the patient's Prior medical records reviewed Vital Signs: reviewed and remarkable for hypertension and tachycardia Differential diagnosis: Recurrent renal failure, hypernatremia, sepsis, dehydration, hyponatremia, hyperglycemia ER treatment provided: IV normal saline solution Diagnostics interpreted by me: ECG: Sinus tachycardia at 121. No ST segment elevation or signs of ischemia. No ectopy. This was compared to an EKG from August 2019 and showed some nonspecific T wave changes in the anterior lateral leads. Cardiac Monitoring: Normal sinus rhythm at 96 with no ischemia Laboratory studies: See below Imaging studies:As per my interpretation Chest x-ray: No acute pulmonary infiltrates or consolidation HPI: 64/M arrives for evaluation of increasing confusion. This is a 64-year-old male patient with a recent admission to the hospital for acute renal failure and dehydration who presents to the emergency department again today with decreased oral intake over the past 2 to 3 days. The noticed that the patient has become increasingly confused. He has not moved his bowels in the past 4-5 days. He has been using a urinal in bed. The patient has not been taking his medications over the past 24 hours. She noticed that he began to shake and pant in the past 12-24 hours. Tonight, the patient would not respond to the and she called EMS. ROS: See above HPI for pertinent positives & negatives. A total of 10 systems reviewed and were otherwise negative. PAST MEDICAL HISTORY:Recent episode of acute kidney injury; see below PAST SURGICAL HISTORY:See Below FAMILY HISTORY:See Below SOCIAL HISTORY:See Below HOME MEDICATIONS:See list ALLERGIES:See Below VITALS:See Below PHYSICAL EXAMINATION: HEENT: Head - normocephalic and atraumatic. Pupils are equal, round, and reactive to light. Extraocular eye muscles are intact and sclera are anicteric. Ears - bilaterally patent canals with noninjected tympanic membranes and no evidence of hemotympanum. Nose - moist nasal mucosa without discharge. Mouth - extremely dry buccal mucosa with dried blood. Oropharynx is nonerythematous and there is no tonsillar exudate or edema noted. Neck: Supple; no JVD, nuchal rigidity, cervical lymphadenopathy, or auscultated bruits. Heart: Regular rate and rhythm. There is a normal S1 and S2 with no murmurs, clicks, or gallops appreciated. Lungs: Clear to auscultation bilaterally with no wheezes, rales, or rhonchi. Abdomen: Soft, completely nontender, nondistended, with good bowel sounds. There are no palpable pulsatile masses or hepatosplenomegaly. There is no guarding, rigidity, or rebound noted. Extremities: No evidence of cyanosis, clubbing, or edema. There are easily palpable peripheral pulses. Skin: Warm and extremely dry with poor turgor Neuro:The patient is awake but seems to be staring off to the right. He will respond to loud noises. He will follow commands occasionally. He is moving all 4 extremities. He does have purposeful movements. He would not answer questions. ED COURSE: Times/Reassessments: 0155: The patient was evaluated in room C7. A complete history and physical was performed. An order was placed for continuous cardiac monitoring. The patient remains in a sinus tachycardia at a rate of 110. An IV lock was initiated and labs are drawn as above including blood cultures. The patient was bolused with 1 L of normal saline solution wide open as he appeared to be so significantly dehydrated. A twelve-lead EKG was obtained. 0220: The patient's arrived. A chest x-ray was obtained. 0325: I reviewed the results of the labs and x-ray with the patient's Renetta Phillips DO Past Med/Surg History Medical History (Updated 09/09/19 @ 05:49 by Renetta Phillips DO) SHAGGY (acute kidney injury) Chronic back pain Electrolyte abnormality Clinically consistent with dehydration, NSAID use, uric acid nephropathy, and ATN. Tolerating IVF well. Creatinine continues to improve. Uremia also improving with management. Free water deficit persist (~4.5 L). Unable to tolerate medications or fluids by mouth. IVF switched to 1/4 NaCl + 20 KCl @ 200 ml/h yesterday evening. Urine appropriately alkaline. Noted UA crystals in urine yesterday AM. Serum UA level improving. Hypokalemia and hypophosphatemia noted. magnesium falling. K phos x 30 mmol IV ordered. Will continue to monitor labs twice daily and replace as needed. No adjustment to IVF infusion at this time. Hematemesis Hypertension Thrombocytopenia Vomiting Surgical History (Updated 08/29/19 @ 00:03 by Elyse Prasad) H/O right hemicolectomy Social History Preferred Language: Mozambican Communication Ability: Effective Slash Trimmer Required: No Beliefs That Will Affect Care: None Current Living Situation: Spouse Feels Safe at Home: Yes Smoking Status: Unknown if ever smoked Hx Alcohol Use: No Hx Substance Use: No Allergies Allergies Allergy/AdvReac Type Severity Reaction Status Date / Time bee venom protein (honey bee) Allergy Severe ANAPHYLACTIC Verified 09/09/19 02:21 REACTION A CHILD Home Meds Home Medications Medication Instructions Recorded Confirmed amlodipine 10 mg PO DAILY 08/14/19 09/09/19 epinephrine [EpiPen] 0.3 mg IM DIRECTED PRN 08/14/19 09/09/19 losartan 100 mg PO DAILY 08/14/19 09/09/19 Previous Rx's Medication Instructions Recorded methocarbamol 750 mg PO BID PRN #0 tab 08/28/19 pantoprazole 40 mg PO BID 30 Days #60 tab 08/28/19 potassium chloride 20 meq PO DAILY #1200 ml 08/28/19 Results & Data (ED) Vital Signs Vital Signs - 24 hr 09/09/19 02:03 09/09/19 02:27 09/09/19 02:30 Temperature 37.6 C H Temperature Source Rectal Pulse Rate 122 H 119 H Pulse Rate from SpO2 Sensor 122 H 110 H Respiratory Rate 13 26 H 20 Respiratory Effort / Characteristics Spontaneous Accessory Muscle Use Labored Respiratory Depth Normal Respiratory Pattern Regular Blood Pressure 116/88 135/110 H 150/105 H Blood Pressure Mean 95 118 122 Blood Pressure Position Lying Pulse Oximetry 98 98 97 Oxygen Delivery Method Room Air Sepsis Recent Fever Within 48 Hours Yes Sepsis New/Unexplained Change in Mental Status Yes Sepsis Action Taken by Nursing Physician Notified 09/09/19 02:41 09/09/19 03:00 09/09/19 03:30 Temperature Temperature Source Pulse Rate 120 H 102 H 100 H Pulse Rate from SpO2 Sensor 101 H 100 H Respiratory Rate 26 H 25 H 24 Respiratory Effort / Characteristics Respiratory Depth Respiratory Pattern Blood Pressure 160/100 H 154/99 H Blood Pressure Mean 122 117 Blood Pressure Position Pulse Oximetry 98 97 96 Oxygen Delivery Method Room Air Sepsis Recent Fever Within 48 Hours Sepsis New/Unexplained Change in Mental Status Sepsis Action Taken by Nursing 09/09/19 04:00 09/09/19 04:30 Temperature Temperature Source Pulse Rate 100 H 96 H Pulse Rate from SpO2 Sensor 100 H 96 H Respiratory Rate 20 21 Respiratory Effort / Characteristics Respiratory Depth Respiratory Pattern Blood Pressure 167/99 H 155/98 H Blood Pressure Mean 120 122 Blood Pressure Position Pulse Oximetry 99 97 Oxygen Delivery Method Sepsis Recent Fever Within 48 Hours Sepsis New/Unexplained Change in Mental Status Sepsis Action Taken by Nursing Laboratory Data Result diagrams: 09/09/19 02:20 09/09/19 02:20 Lab Results 09/09/19 09/09/19 Range/Units 02:20 02:20 WBC 13.84 H (4.8-10.8) K/uL RBC 4.54 L (4.7-6.1) M/uL Hgb 14.7 (14.0-18.0) g/dL Hct 46.0 (42-52) % MCV 101.3 H (80-100) fL MCH 32.4 (25-34) pg MCHC 32.0 (32-36) g/dL RDW Std Deviation 52.4 H (36.4-46.3) fL RDW Coeff of Kaleigh 14.7 H (11.5-14.5) % Plt Count 216 (130-400) K/uL MPV 12.9 H (7.4-10.4) fL Immature Gran % (Auto) 0.8 % Neut % (Auto) 84.5 % Lymph % (Auto) 9.0 % [place] % (Auto) 5.6 % Eos % (Auto) 0.0 % Baso % (Auto) 0.1 % Neut # (Auto) 11.68 H (1.4-6.5) K/uL Lymph # (Auto) 1.25 (1.2-3.4) K/uL [place] # (Auto) 0.78 H (0.11-0.59) K/uL Eos # (Auto) 0.00 (0-0.5) K/uL Baso # (Auto) 0.02 (0-0.2) K/uL Immature Gran # (Auto) 0.11 H (0.00-0.02) K/uL Absolute Nucleated RBC 0.07 H (0-0) K/uL Nucleated RBC % (auto) 0.5 % RBC Morphology Unremarkable Sodium 166 H* (136-145) mmol/L Potassium 4.8 (3.5-5.1) mmol/L Chloride 135 H (98-107) mmol/L Carbon Dioxide 21 (21-32) mmol/L Anion Gap 10.0 (3-11) BUN 93 H (7-18) mg/dl Creatinine 3.74 H (0.6-1.4) mg/dl Est Cr Clr Drug Dosing 17.0 ml/min Est GFR ( Amer) 18.4 Est GFR (Non-Af Amer) 15.8 BUN/Creatinine Ratio 24.9 H (10-20) Glucose 184 H (70-99) mg/dl Calcium 10.1 (8.5-10.1) mg/dl Phosphorus 4.9 (2.5-4.9) mg/dl Magnesium 2.8 H (1.8-2.4) mg/dl Total Bilirubin 1.7 H (0.2-1) mg/dl AST 22 (15-37) U/L ALT 40 (12-78) U/L Alkaline Phosphatase 76 (45-117) U/L Troponin I 0.135 H* (0-0.045) ng/ml Total Protein 8.9 H (6.4-8.2) gm/dl Albumin 3.7 (3.4-5.0) gm/dl Globulin 5.2 H (2.5-4.0) gm/dl Albumin/Globulin Ratio 0.7 L (0.9-2) TSH 0.299 L (0.300-4.500) uIu/ml Free T4 1.09 (0.8-1.6) ng/dl Specimen Hemolysis Administered Medications Discontinued Medications Sodium Chloride (Nss 1000ml) 1,000 mls @ 999 mls/hr IV .Q1H1M GRADY Stop: 09/09/19 03:15 Last Infusion: 09/09/19 03:46 Dose: 0 mls/hr Documented by: [id number] Admin: 09/09/19 02:30 Dose: 999 mls/hr Documented by: [id number] Sodium Chloride (Nss 1000ml) 1,000 mls @ 999 mls/hr IV .Q1H1M ONE Stop: 09/09/19 04:12 Last Infusion: 09/09/19 05:07 Dose: 0 mls/hr Documented by: [id number] Admin: 09/09/19 03:55 Dose: 999 mls/hr Documented by: [id number] Discharge Plan Visit Data Chief Complaint: Confusion Stated Complaint: Altered mental status ED Provider: Renetta Phillips Discharge Problem: Acute hypernatremia, Acute kidney injury, Altered mental status Discharge Instructions Interventions: ED Discharge Assessment Last Done: 09/09/19 05:13 Forms Stand Alone Forms: [facility] Prescriptions Prescriptions: No Action amlodipine 10 mg tablet 10 mg PO DAILY RF: 0 epinephrine [EpiPen] 0.3 mg/0.3 mL Auto-Injector 0.3 mg IM DIRECTED PRN (Reason: Allergic Reaction) RF: 0 losartan 100 mg tablet 100 mg PO DAILY RF: 0 pantoprazole 40 mg tablet,delayed release (DR/EC) 40 mg PO BID 30 Days Qty: 60 RF: 0 potassium chloride 20 mEq/15 mL liquid 20 meq PO DAILY Qty: 1200 RF: 0 methocarbamol 750 mg tablet 750 mg PO BID PRN (Reason: Back Pain) Qty: 0 RF: 0 Referrals Referrals: Lobito Orourke Jr, [Primary Care Provider] - Discharge Problem: Altered mental status Qualifiers: Altered mental status type: unspecified Qualified Code(s): R41.82 - Altered mental status, unspecified
[2019-09-09 02:31] LABS: Hemoglobin 14.7 g/dL (14.0-18.0); Mean Corpuscular Hemoglobin 32.4 pg (25-34); Mean Corpuscular Volume 101.3 fL (80-100); Mean Platelet Volume 12.9 fL (7.4-10.4); Nucleated RBC # (auto) 0.07 K/uL (0-0); Nucleated RBC % (auto) 0.5 %; Platelet Count 216 K/uL (130-400); RDW Coefficient of Variation 14.7 % (11.5-14.5); RDW Standard Deviation 52.4 fL (36.4-46.3); Red Blood Count 4.54 M/uL (4.7-6.1); White Blood Count 13.84 K/uL (4.8-10.8)
[2019-09-09 02:54] LABS: Albumin Level 3.7 gm/dl (3.4-5.0); BUN Creatinine Ratio 24.9 (10-20); Basophils # (auto) 0.02 K/uL (0-0.2); Basophils % (auto) 0.1 %; Calcium 10.1 mg/dl (8.5-10.1); Est GFR (African American) 18.4; Est GFR (Non-African American) 15.8; Immature Granulocytes # (auto) 0.11 K/uL (0.00-0.02); Immature Granulocytes % (auto) 0.8 %; Lymphocytes # (auto) 1.25 K/uL (1.2-3.4); Monocytes # (auto) 0.78 K/uL (0.11-0.59); Monocytes % (auto) 5.6 %; Neutrophils # (auto) 11.68 K/uL (1.4-6.5); Neutrophils % (auto) 84.5 %; Potassium 4.8 mmol/L (3.5-5.1); RBC Morphology Unremarkable
[2019-09-09] MEDS ORDERED: SODIUM CHLORIDE 0.9% 1000ML 1,000 ML IV ONE (03:12)
[2019-09-09 03:23] LABS: Albumin Globulin Ratio 0.7 (0.9-2); Bilirubin,Total 1.7 mg/dl (0.2-1); Globulin 5.2 gm/dl (2.5-4.0); Thyroid Stimulating Hormone 0.299 uIu/ml (0.300-4.500); Total Protein 8.9 gm/dl (6.4-8.2); Troponin I 0.135 ng/ml (0-0.045)
[2019-09-09 03:35] LABS: Magnesium 2.8 mg/dl (1.8-2.4)
[2019-09-09 03:36] LABS: Phosphorus 4.9 mg/dl (2.5-4.9); T4 Free Thyroxine 1.09 ng/dl (0.8-1.6)
--- NOTE | 2019-09-09 04:06 | History & Physical Report ---
Date of Service September 09, 2019 Assessment & Plan (1) Encephalopathy acute: 64 yo M with HTN and recent discharge from [facility] on 08/27 for SHGAGY with Cr of 6 and refeeding syndrome, admitted for acute encephalopathy and confusion. 1. Acute Metabolic Encephalopathy secondary to Hypernatremia and severe dehydration - Na 166, Cr 3.74, BUN 93 - 5.8 L Free water deficit - urine osm and sodium + serum osm orders pending - 2L NS boluses in ED - NS 1/2 maintenance rate ordered for AM; can adjust rate per BMP - trend BMP Q8H with goal of Na decrease no greater than 10 mmol/L per 24 hours - nephrology consulted, appreciate recommendations - NPO while encephalopathic - consider speech consult for swallow eval when less obtunded - given patient's rapid decompensation at home after discharge can consider palliative discussion during admission re: goals of care going forward with repeat admissions and trouble shooting home care 2. SHAGGY - Cr 3.74, BUN 93 - likely secondary to dehydration over the past 1-2 weeks - trend BMP, hold nephrotoxic medications 3. Elevated Troponin - EKG without ST segment changes, no major changes from prior admission - demand ischemia with tachycardia and dehydration - trending trops 4. Elevated Bilirubin - received full workup for gallbladder dysfunction last admission yielding mixed results re: not currently surgical candidate, ulcerations seen on EGD. - Recommendations included low fat diet and small meals. 5. PUD - continue pantoprazole BID 6. Leukocytosis - WBC 13.8 - afebrile - tachycardia likely related to dehydration - most likely stress response to dehydration + concentration - will trend CBC and monitor for signs of infection 7. HTN - continue home amlodipine 10 mg daily, losartan 100 mg daily when pt able to tolerate PO medications - hold while obtunded/altered DVT ppx: heparin BID FEN/GI: NPO Dispo: PCU Code Status: Full Code (2) Hypertension: (3) SHAGGY (acute kidney injury): (4) Elevated troponin: (5) Elevated WBC count: History of Present Illness 64 yo M with PMH HTN, refeeding syndrome, recently discharged from [facility] on 08/27 brought back to the ED by his for worsening confusion and altered mental status. She states that approximately 1 week ago he started to seem a little off but progressively was eating and drinking less and less. She states he did not complain of any nausea, vomiting, problems urinating while he was still communicative. Primary Care Provider: Lobito Orourke Jr, DO Allergies Allergy/AdvReac Type Severity Reaction Status Date / Time bee venom protein (honey bee) Allergy Severe ANAPHYLACTIC Verified 09/09/19 02:21 REACTION A CHILD Home Medications Home Medications Medication Instructions Recorded Confirmed Type amlodipine 10 mg PO DAILY 08/14/19 09/09/19 History epinephrine [EpiPen] 0.3 mg IM DIRECTED PRN 08/14/19 09/09/19 History losartan 100 mg PO DAILY 08/14/19 09/09/19 History methocarbamol 750 mg PO BID PRN #0 tab 08/28/19 09/09/19 Rx pantoprazole 40 mg PO BID 30 Days #60 tab 08/28/19 09/09/19 Rx potassium chloride 20 meq PO DAILY #1200 ml 08/28/19 09/09/19 Rx Past Med/Surg History Medical History (Updated 09/09/19 @ 05:49 by Renetta Phillips DO) SHAGGY (acute kidney injury) Chronic back pain Electrolyte abnormality Clinically consistent with dehydration, NSAID use, uric acid nephropathy, and ATN. Tolerating IVF well. Creatinine continues to improve. Uremia also improving with management. Free water deficit persist (~4.5 L). Unable to tolerate medications or fluids by mouth. IVF switched to 1/4 NaCl + 20 KCl @ 200 ml/h yesterday evening. Urine appropriately alkaline. Noted UA crystals in urine yesterday AM. Serum UA level improving. Hypokalemia and hypophosphatemia noted. magnesium falling. K phos x 30 mmol IV ordered. Will continue to monitor labs twice daily and replace as needed. No adjustment to IVF infusion at this time. Hematemesis Hypertension Thrombocytopenia Vomiting Surgical History (Updated 08/29/19 @ 00:03 by Elyse Prasad) H/O right hemicolectomy Social History Preferred Language: Italian Communication Ability: Impaired Communication Ability Comment: Impaired at present time due to AMS Rubber Block Layer Required: No Beliefs That Will Affect Care: None Current Living Situation: Spouse Other Information That Helps Us Care for You: No Feels Safe at Home: Yes Safety Concerns: Feels Safe At This Time Smoking Status: Former smoker Do You Dip or Chew Tobacco: No ; Smoking End Date: 2018 ; Second Hand Exposure: No ; Tobacco Cessation Education Requested by Patient: No Hx Alcohol Use: No Hx Substance Use: No Review of Systems Review of Systems: Unobtainable due to cognitive status Physical Exam Constitutional: + cachectic and + altered mental status Eyes: Staring at ceiling with eyes wide open and "glazed over" appearance Respiratory: Somewhat labored breathing, no audible wheezing, no respiratory distress, no crackles, wheezes or rhonchi noted on exam Cardiovascular: Rate/Rhythm: regular rhythm and + tachycardic Heart Sounds: normal S1 and normal S2; no gallop, no murmur and no cardiac rub Extremities: no calf tenderness and no pedal edema Gastrointestinal (Abdomen): Inspection/Auscultation: abdomen normal to inspection and normal bowel sounds; abdomen not distended Percussion/Palpation: + abdomen tender and abdomen soft; no guarding and abdomen not rigid Neurologic: Appears obtunded and confused but able to follow basic commands Results & Data Results & Data ([facility]) Vital Signs (Past 12 Hours) Vital Signs Temp Pulse Resp BP Pulse Ox 09/09/19 02:41 120 H 26 H 98 09/09/19 02:27 37.6 C H 119 H 26 H 135/110 H 98 Laboratory Results WBC 13.84 K/uL (4.8-10.8) H 09/09/19 02:20 RBC 4.54 M/uL (4.7-6.1) L 09/09/19 02:20 Hgb 14.7 g/dL (14.0-18.0) 09/09/19 02:20 Hct 46.0 % (42-52) 09/09/19 02:20 MCV 101.3 fL (80-100) H 09/09/19 02:20 MCH 32.4 pg (25-34) 09/09/19 02:20 MCHC 32.0 g/dL (32-36) 09/09/19 02:20 RDW Std Deviation 52.4 fL (36.4-46.3) H 09/09/19 02:20 RDW Coeff of Kaleigh 14.7 % (11.5-14.5) H 09/09/19 02:20 Plt Count 216 K/uL (130-400) 09/09/19 02:20 MPV 12.9 fL (7.4-10.4) H 09/09/19 02:20 Immature Gran % (Auto) 0.8 % 09/09/19 02:20 Neut % (Auto) 84.5 % 09/09/19 02:20 Lymph % (Auto) 9.0 % 09/09/19 02:20 [place] % (Auto) 5.6 % 09/09/19 02:20 Eos % (Auto) 0.0 % 09/09/19 02:20 Baso % (Auto) 0.1 % 09/09/19 02:20 Neut # (Auto) 11.68 K/uL (1.4-6.5) H 09/09/19 02:20 Lymph # (Auto) 1.25 K/uL (1.2-3.4) 09/09/19 02:20 [place] # (Auto) 0.78 K/uL (0.11-0.59) H 09/09/19 02:20 Eos # (Auto) 0.00 K/uL (0-0.5) 09/09/19 02:20 Baso # (Auto) 0.02 K/uL (0-0.2) 09/09/19 02:20 Immature Gran # (Auto) 0.11 K/uL (0.00-0.02) H 09/09/19 02:20 Absolute Nucleated RBC 0.07 K/uL (0-0) H 09/09/19 02:20 Nucleated RBC % (auto) 0.5 % 09/09/19 02:20 RBC Morphology Unremarkable 09/09/19 02:20 Sodium 166 mmol/L (136-145) H* 09/09/19 02:20 Potassium 4.8 mmol/L (3.5-5.1) 09/09/19 02:20 Chloride 135 mmol/L (98-107) H 09/09/19 02:20 Carbon Dioxide 21 mmol/L (21-32) 09/09/19 02:20 Anion Gap 10.0 (3-11) 09/09/19 02:20 BUN 93 mg/dl (7-18) H 09/09/19 02:20 Creatinine 3.74 mg/dl (0.6-1.4) H 09/09/19 02:20 Est Cr Clr Drug Dosing 17.0 ml/min 09/09/19 02:20 Est GFR ( Amer) 18.4 09/09/19 02:20 Est GFR (Non-Af Amer) 15.8 09/09/19 02:20 BUN/Creatinine Ratio 24.9 (10-20) H 09/09/19 02:20 Glucose 184 mg/dl (70-99) H 09/09/19 02:20 Calcium 10.1 mg/dl (8.5-10.1) 09/09/19 02:20 Phosphorus 4.9 mg/dl (2.5-4.9) 09/09/19 02:20 Magnesium 2.8 mg/dl (1.8-2.4) H 09/09/19 02:20 Total Bilirubin 1.7 mg/dl (0.2-1) H 09/09/19 02:20 AST 22 U/L (15-37) 09/09/19 02:20 ALT 40 U/L (12-78) 09/09/19 02:20 Alkaline Phosphatase 76 U/L (45-117) 09/09/19 02:20 Troponin I 0.135 ng/ml (0-0.045) H* 09/09/19 02:20 Total Protein 8.9 gm/dl (6.4-8.2) H 09/09/19 02:20 Albumin 3.7 gm/dl (3.4-5.0) 09/09/19 02:20 Globulin 5.2 gm/dl (2.5-4.0) H 09/09/19 02:20 Albumin/Globulin Ratio 0.7 (0.9-2) L 09/09/19 02:20 TSH 0.299 uIu/ml (0.300-4.500) L 09/09/19 02:20 Free T4 1.09 ng/dl (0.8-1.6) 09/09/19 02:20 Specimen Hemolysis 09/09/19 02:20 Supervising Physician Co-Signing Physician Notes Attending addendum: I have physically seen this patient, have supervised the medical residents activities, and agree with the H&P unless as otherwise noted. Assessment and Plan: Hypernatremia/acute kidney injury- Sodium upon entry was 166. Patient has already received a 2 L normal saline bolus from the ED. Sodium is likely higher than the initial entry. We will place on half-normal saline at 60 mils per hour for now until repeat sodium has returned, and then adjust dosing further. Patient has shown improved mentation with the fluids he has received while in the ED. Creatinine upon admission was 3.74, whereas at previous admission on 08/14/2027 was 6.13. Follow BMP and magnesium levels serially. Patient will ultimately need conversion to D5W. Concern regarding the ability of the patient's family to take care of him at home. Consult high school social science teacher. Erosive gastritis/duodenitis/abnormal HIDA scan with low ejection fraction- Protonix IV infusion. The patient was to be following up with surgery in the outpatient setting if his symptoms did not improve with conservative treatment for gastritis and duodenitis. Once patient's symptoms have improved, can readdress the issue of abnormal HIDA scan and possible need for lap amy if continued poor intake as original plan. Resident Activity Tracking Resident Involvement: Resident Care Provided Care Provided: Adult Hospital Medicine
[2019-09-09] MEDS ORDERED: NITROGLYCERIN SL 0.4 MG/TAB TAB SL PRN (05:56)
[2019-09-09] MEDS ORDERED: MoRPHine SULFATE 2 MG/ML CARP IV PRN (05:56)
[2019-09-09] MEDS ORDERED: ONDANSETRON INJ 2 MG/ML 2 ML VIAL IV PRN (05:56)
[2019-09-09 08:01] LABS: Appearance Urine Cloudy (Clear); Bacteria Urine Automated 2+ (Negative); Blood Urine Trace (Negative); Color Urine Dark Yellow; Glucose Urine UA Negative (Negative); Ketones Urine Trace (Negative); Leukocyte Esterase Urine Negative (Negative); Nitrite Urine Negative (Negative); Protein Urine 1+ (Negative); RBC Urine Automated 0-4 /hpf (0-4); Specific Gravity Urine 1.022 (1.000-1.030); Urobilinogen Urine Negative (Negative)
[2019-09-09 08:14] LABS: Bilirubin Urine Negative (Negative); Ictotest Urine Negative (Negative)
--- NOTE | 2019-09-09 08:19 | XRay Report ---
XR chest 1V portable HISTORY: 64 years-old Male weakness acutely altered mental status with weakness COMPARISON: Chest radiograph 08/14/2019 TECHNIQUE: Portable AP view of the chest FINDINGS: Cardiomediastinal and hilar silhouettes are within normal limits. There is no pneumothorax, pleural e ffusion, airspace consolidation or overt pulmonary edema. Degenerative changes of the shoulders and s pine. Bones appear grossly intact. IMPRESSION: No acute process. ACT 112: Negative or not required by law. The above report was generated using voice recognition software. It may contain grammatical, syntax o r spelling errors. Electronically signed by: Aramis Vásquez M.D. 09/09/2019 8:18 AM
[2019-09-09] MEDS: HEPARIN SOD 5,000 UNIT/0.5 ML VIAL SQ SCH ×2 (08:32→21:27)
[2019-09-09] MEDS ORDERED: LOSARTAN POTASSIUM 50 MG TAB PO SCH (09:00)
[2019-09-09] MEDS ORDERED: PANTOprazole 40 MG TAB PO SCH (09:00)
[2019-09-09 09:21] LABS: BUN Creatinine Ratio 30.1 (10-20); Calcium 9.1 mg/dl (8.5-10.1); Est GFR (African American) 26.9; Est GFR (Non-African American) 23.2; Potassium 3.9 mmol/L (3.5-5.1); Troponin I 0.151 ng/ml (0-0.045)
--- NOTE | 2019-09-09 09:25 | CT Scan Report ---
CT head/brain wo con CLINICAL HISTORY: 64 years-old Male with elevated stroke scale score, ams. Acute strokelike symptoms with altered mental status. TECHNIQUE: Multiple axial CT images of the head were obtained without contrast. A dose lowering tech nique was utilized adhering to the principles of ALARA. CT DOSE: 7.50 mGycm COMPARISON: Head CT 08/14/2019. FINDINGS: No acute intracranial hemorrhage, midline shift, intracranial mass, hydrocephalus, territorial ischem ia or abnormal extra-axial collection. Age-related involutional changes. Cerebral vascular calcificat ions. The calvarium is intact. The paranasal sinuses, mastoid air cells, and middle ear cavities are clear . IMPRESSION: No acute intracranial abnormality. ACT 112: Negative or not required by law. The above report was generated using voice recognition software. It may contain grammatical, syntax o r spelling errors. Electronically signed by: Aramis Vásquez M.D. 09/09/2019 9:23 AM
[2019-09-09] MEDS ORDERED: ASPIRIN 300 MG SUPP PR ONE ×3 (10:03→10:58)
[2019-09-09] MEDS: PANTOprazole 40 MG in SYRINGE 0 ML IV SCH ×2 (10:22→21:28)
[2019-09-09] MEDS: THIAMINE HCL 100 MG in SYRINGE 9 ML IV SCH (10:22)
[2019-09-09] MEDS: FOLIC ACID 1 MG in SYRINGE 9.8 ML IV SCH (10:22)
[2019-09-09] MEDS: DEXTROSE 5% 1,000 ML IV SCH ×2 (10:27→17:21)
--- NOTE | 2019-09-09 11:27 | Nephrology Consultation ---
Date of Consultation September 09, 2019 Assessment & Plan (1) Acute hypernatremia: Mr. Tariq presented with 2 days history of confusion and poor p.o. intake. On admission found to be acutely hyponatremic had SHAGGY. Has been voiding normally. Was initially given IV normal saline more than 2 liters, creatinine slightly improved however hyponatremia worsened. Has more than 7 liters free water deficit. Change in mental status could be related to severe hyponatremia although concern for CVA however no focal weakness and CT head was negative. --Change D5W to 150 mL/hour, monitor serum sodium every 12 hours --continue to hold losartan for now --if blood pressure remains and patient able to take orally, amlodipine can be resumed, otherwise consider IV hydralazine --check renal function daily Will follow Thank you for allowing me to participate in your patient's care. It was a pleasure to see Mr. Tariq (2) Acute kidney injury: (3) Altered mental status: History of Present Illness Reason for Consultation: Hypernatremia and SHAGGY Attending Physician: Rose Delcid MD History of Present Illness Mr. Tariq Uses 64-year-old gentlemen with past medical history significant for hypertension he is recent hospital admission for change in mental status and SHAGGY and hypernatremia admitted to the hospital with similar episode change in mental status. On admission he was found to have hyponatremia and acute kidney injury. Nephrology consult was requested further management of SHAGGY and hypernatremia. Mr. Tariq was admitted to hospital on 08/14/2019 with change in mental status and found to acute kidney injury and hypernatremia. Creatinine was above 6 and sodium was 158. SHAGGY and hypernatremia rapidly improved with IV hydration. Was was brought to ER overnight device Family with confusion and decreased p.o. intake for 2 days. On admission serum sodium was 160 6 and creatinine was 3.7. He was started on IV normal saline and he received more than 2 liters of normal saline. Repeat lab showed sodium increase to 167 but creatinine improved to 2.7. IV fluid was changed to D5W at 61 mL hour. Has normal baseline renal function baseline creatinine 0.7-1.0. Was on losartan 100 milligram as on at home which has been on hold. He has been making urine. This morning he was found to be less responsive and a stroke alert was called. CT head was otherwise negative. He is currently lethargic and minimally responsive however on repeated questioning he opened eyes and followed some commands. He was able to move all of his extremities. He reports being thirsty but denies any other symptom. Allergies Allergy/AdvReac Type Severity Reaction Status Date / Time bee venom protein (honey bee) Allergy Severe ANAPHYLACTIC Verified 09/09/19 02:21 REACTION A CHILD Home Medications Home Medications Medication Instructions Recorded Confirmed Type amlodipine 10 mg PO DAILY 08/14/19 09/09/19 History epinephrine [EpiPen] 0.3 mg IM DIRECTED PRN 08/14/19 09/09/19 History losartan 100 mg PO DAILY 08/14/19 09/09/19 History methocarbamol 750 mg PO BID PRN #0 tab 08/28/19 09/09/19 Rx pantoprazole 40 mg PO BID 30 Days #60 tab 08/28/19 09/09/19 Rx potassium chloride 20 meq PO DAILY #1200 ml 08/28/19 09/09/19 Rx Patient History Medical History (Updated 09/09/19 @ 05:49 by Renetta Phillips DO) SHAGGY (acute kidney injury) Chronic back pain Electrolyte abnormality Clinically consistent with dehydration, NSAID use, uric acid nephropathy, and ATN. Tolerating IVF well. Creatinine continues to improve. Uremia also improving with management. Free water deficit persist (~4.5 L). Unable to tolerate medications or fluids by mouth. IVF switched to 1/4 NaCl + 20 KCl @ 200 ml/h yesterday evening. Urine appropriately alkaline. Noted UA crystals in urine yesterday AM. Serum UA level improving. Hypokalemia and hypophosphatemia noted. magnesium falling. K phos x 30 mmol IV ordered. Will continue to monitor labs twice daily and replace as needed. No adjustment to IVF infusion at this time. Hematemesis Hypertension Thrombocytopenia Vomiting Surgical History (Updated 08/29/19 @ 00:03 by Elyse Prasad) H/O right hemicolectomy Social History Preferred Language: Kazakh Communication Ability: See below Communication Ability Comment: Impaired at present time due to AMS Regrader Required: No Beliefs That Will Affect Care: None Current Living Situation: Spouse Other Information That Helps Us Care for You: No Feels Safe at Home: Yes Safety Concerns: Feels Safe At This Time Smoking Status: Former smoker Do You Dip or Chew Tobacco: No ; Smoking End Date: 2018 ; Second Hand Exposure: No ; Tobacco Cessation Education Requested by Patient: No Hx Alcohol Use: No Hx Substance Use: No Review of Systems Review of Systems: All systems reviewed & are unremarkable except as noted in HPI & below Physical Exam Constitutional: + ill appearing, + altered mental status and + lethargic; no acute distress Eyes: PERRL, conjunctivae normal, anicteric sclerae ENMT: external ear and nose normal, oropharynx normal Ears: no hearing impairment Neck: trachea midline Respiratory: normal respiratory effort, lungs clear to auscultation no cough Auscultation: no crackles, no rales and no wheezes Cardiovascular: RRR, no murmur, no edema Gastrointestinal (Abdomen): normal bowel sounds, soft, nontender, no hepatosplenomegaly Percussion/Palpation: abdomen nontender, no guarding and abdomen not rigid Musculoskeletal: Extremities: extremities normal to inspection Gait: normal gait Skin: no rashes, warm and dry Neurologic: moves all extremities and + confused; no focal motor deficits Psychiatric: Orientation: cooperative Results & Data Vital Signs (Past 12 Hours) Vital Signs Temp Pulse Pulse Resp BP BP Pulse Ox 09/09/19 07:48 36.7 C 89 18 160/83 H 95 09/09/19 05:40 36.8 C 96 H 24 161/91 H 97 09/09/19 04:30 96 H 21 155/98 H 97 09/09/19 04:00 100 H 20 167/99 H 99 09/09/19 03:30 100 H 24 154/99 H 96 09/09/19 03:00 102 H 25 H 160/100 H 97 09/09/19 02:41 120 H 26 H 98 09/09/19 02:30 20 150/105 H 97 09/09/19 02:27 37.6 C H 119 H 26 H 135/110 H 98 09/09/19 02:03 122 H 13 116/88 98 PG Care Time/CCT Total # of Minutes Spent Total Time Spent with Patient: Total time spent is greater than 50% in varnish cooker rdination of care (as documented) at patient's floor/unit and/or counseling patient: Coding Level of Care Code 30329 Inpt Consult Level 5 Diagnoses Acute hypernatremia E87.0 Acute kidney injury N17.9 Altered mental status R41.82 Altered mental status type: unspecified (1) Altered mental status Altered mental status type: unspecified Qualified Code(s): R41.82 - Altered mental status, unspecified
--- NOTE | 2019-09-09 12:28 | XRay Report ---
KUB CLINICAL HISTORY: PRE MRI CLEARANCE COMPARISON STUDY: CT of the abdomen and pelvis August 14, 2019. FINDINGS: Right hip arthroplasty is noted. Bowel anastomosis is noted. The bowel gas pattern is denise l. No unexpected radiopaque foreign bodies are noted. There is no contraindication to MRI on this KUB . IMPRESSION: No contraindication to MRI on this KUB. ACT 112: Negative or not required by law. Electronically signed by: Shane Braun M.D. 09/09/2019 12:27 PM
[2019-09-09 13:30] LABS: BUN Creatinine Ratio 35.3 (10-20); Calcium 8.5 mg/dl (8.5-10.1); Creatinine Clr Calc Pharmacy 27.3 ml/min; Est GFR (African American) 31.4; Est GFR (Non-African American) 27.1
--- NOTE | 2019-09-09 14:33 | Electrocardiogram Report ---
Test Reason : Blood Pressure : / mmHG Vent. Rate : 121 BPM Atrial Rate : 121 BPM P-R Int : 152 ms QRS Dur : 074 ms QT Int : 314 ms P-R-T Axes : 077 007 099 degrees QTc Int : 445 ms Sinus tachycardia Possible Left atrial enlargement Septal infarct (cited on or before 26-JAN-2000) Abnormal ECG When compared with ECG of 14-AUG-2019 21:07, Questionable change in initial forces of Septal leads Nonspecific T wave abnormality, worse in Anterolateral leads Confirmed by Nikolay Salinas ([id number]) on 09/09/2019 2:33:24 PM Referred By: REFERRED SELF Confirmed By:Nikolay Salinas
--- NOTE | 2019-09-09 15:41 | Magnetic Resonance Report ---
MRI OF THE BRAIN WITHOUT CONTRAST CLINICAL HISTORY: stroke work up COMPARISON STUDY: Head CT September 09, 2019. TECHNIQUE: Utilizing a 1.5 Nadia magnet and dedicated coil, multiplanar, multiecho imaging of the bra in was performed without IV contrast. FINDINGS: There are no foci of restricted diffusion to suggest acute infarct. No acute intracranial h emorrhage, midline shift or mass effect is present. Ventricular system is unremarkable. The basilar c isterns are patent. There are no extra axial collections. Flow-voids for the major intracranial vesse ls are present. No intracranial masses identified on this unenhanced examination. There is moderate a trophy. White matter T2 hyperintense foci suggest small vessel disease. Calvarial signal is maintaine d. IMPRESSION: No acute intracranial findings. ACT 112: Negative or not required by law. Electronically signed by: Shane Braun M.D. 09/09/2019 3:39 PM
--- NOTE | 2019-09-09 15:47 | Magnetic Resonance Report ---
MRA OF THE INTRACRANIAL CIRCULATION WITHOUT CONTRAST CLINICAL HISTORY: stroke work up COMPARISON STUDY: Head CT September 09, 2019 and August 14, 2019. TECHNIQUE: Utilizing a 1.5 Nadia magnet and 3-D [id number]-ih-[id number] technique, unenhanced MRA of the intra cranial circulation was obtained. FINDINGS: The bilateral M1, M2, A1 and A2 segments are patent. There is no intracranial aneurysm. Exa m is mildly compromised by motion artifact but there is no abrupt vessel cut off. The posterior circu lation is intact. No intraluminal thrombus is identified. The left vertebral artery is dominant. Rig ht A1 segment is hypoplastic. IMPRESSION: Unremarkable MRA of the head. ACT 112: Negative or not required by law. Electronically signed by: Shane Braun M.D. 09/09/2019 3:46 PM
--- NOTE | 2019-09-09 15:50 | Magnetic Resonance Report ---
MR venography head wo con CLINICAL HISTORY: stroke work up COMPARISON STUDY: Head CT September 09, 2019. FINDINGS: The superior sagittal sinus is patent. The left transverse and sigmoid sinuses are patent. The right transverse and sigmoid sinuses are diminutive but patent. The straight sinus is patent. The re is no evidence for dural sinus thrombosis on this examination. IMPRESSION: No evidence for dural sinus thrombosis. ACT 112: Negative or not required by law. Electronically signed by: Shane Braun M.D. 09/09/2019 3:48 PM
--- NOTE | 2019-09-09 16:08 | Hospitalist Progress Note ---
Date of Service September 09, 2019 Assessment & Plan (1) Encephalopathy acute: 64 yo M who was admitted for AMS. Of note, he was recently admitted from 08/14/19 to 08/28/19 for progressive weakness and dehydration secondary to recurrent vomiting. He was found to have gastric and duodenal ulcers as well as a gastropathy per EGD during August admission. Patient was able to tolerate PO intake by discharge on 08/28/19, however he was brought in by his for altered mental status on 09/08/19. reports diminished PO intake in days preceding admission. Patient found to be hypernatremic in ED. Morning nurse reported visual complaint by patient, which promoted a stroke alert. Non- contrast head CT showing no acute bleed. Tele stroke consult with Dr. Edgar Ledbetter from [facility] - recommend Brain MRI, MRA and MRV of head. Studies ordered and showed no evidence of an infarct. Etiology of encephalopathy felt to be metabolic secondary to hypernatremia. Acute Metabolic Encephalopathy - likely secondary to electrolyte derangements (hypernatremia) - Na 166 on admission - head CT not ordered on admission - WBC mildly elevated to 13, low suspicion for infection - liver enzymes normal - Tele stroke consult with [facility] physician Dr. Edgar Dorado as above - nurse reported concern for swallowing, speech consulted, recommend aspiration precautions, and meals only when mentally alert Hypovolemic Hypernatremia - poor oral intake over a wk per - Na 166 on admission - clinically hypovolemic per H&P - 5.8 l free water deficit on admission - urine sodium 33, urine osms 622 - patient was administered 2L NS boluses in ED - patient was then started on normal saline at 1/2 maintenance fluid rate - repeat sodium level was 167 - normal saline discontinued and started on D5W at 150mls/hr - trend BMP Q6H with goal of Na decrease no greater than 10 mmol/L per 24 hours SHAGGY - Cr 3.74, BUN 93, ratio 24 on admission. Cr improved to 2.2 with IVF - likely pre-renal given hx of poor PO intake - nephrology consulted, appreciate recommendations - trend BMP, avoid nephrotoxic meds Elevated Troponin - trop 0.13 on admission, peaked at 0.15, has since downtrended - EKG without ST segment changes, no major changes from prior admission - demand ischemia with tachycardia and dehydration Leukocytosis - WBC elevated to 13 on admission - blood and urine cultures pending - CXR showing no acute process - suspect secondary to volume contraction > infection - trend CBC Elevated Bilirubin - T bili 1.7 on admission - received full workup for gallbladder dysfunction last admission yielding mixed results re: not currently surgical candidate, ulcerations seen on EGD. - Recommendations included low fat diet and small meals. PUD - continue pantoprazole BID - continue carafate QID HTN - continue home amlodipine 10 mg daily - hold losartan in setting of SHAGGY DVT ppx: heparin BID FEN/GI: heart health, low fat diet. feed only when alert. No straws. aspiration precautions Dispo: PCU Code Status: Full Code (2) Hypertension: (3) SHAGGY (acute kidney injury): (4) Elevated troponin: (5) Elevated WBC count: Admission and Anticipated Discharge Date Admission Date: September 09, 2019 Supervising Physician Co-Signing Physician Notes Resident Physician Supervision Note: I independently interviewed and examined the patient and verified the squires history and physical, reviewed labs and image studies, discussed the case with the resident Dr. Tirado and agree with the findings and care plan. I Was called by nursing for patient having right sided weakness and unable to see from both eyes. Exam - general lethargy. Neuro exam with - No focal weakness noted on exam. Did seems to have no vision in both eyes. Code stroke alert called. CT scan with no stroke Dr. Ledbetter attended the consult - less likely stroke. also, since vision loss concern with no definitive onset time and likely more than 8 hrs ago - not a tpa candidate. recommended ASA 81mgs, thiamine, MRI and MRA brain, MRvenogram Symptoms likely from hypernatremia related metabolic encephalopathy. Reviewed MR findings once done. Patient more alert. Spent 40 min of critical care time. Subjective Patient reportedly told nurse he could not see, which prompted bedside evaluation and eventual stroke alert. Patient denied being in any pain Review of Systems Review of Systems: All systems reviewed & are unremarkable except as noted in HPI & below Physical Exam Constitutional: WD/WN, vitals as above Patient with "glazed over" look Eyes: + anicteric sclerae and reactive pupils; + abnormal visual field confrontation ENMT: external ear and nose normal, oropharynx normal Neck: normal visual inspection and trachea midline Respiratory: normal respiratory effort, lungs clear to auscultation Cardiovascular: RRR, no murmur, no edema Heart Sounds: normal S1 and normal S2 Extremities: no pedal edema Gastrointestinal (Abdomen): normal bowel sounds, soft, nontender, no hepatosplenomegaly Percussion/Palpation: abdomen soft Skin: no rashes, warm and dry Neurologic: CN's II-XI intact bilaterally and moves all extremities; no focal motor deficits Speech / Cognition: + abnormal speech (dysarthria) Motor/Sensory: no pronator drift Coordination: normal [id number] test Follows commands Psychiatric: Orientation: oriented x 3 Genitourinary: Hay catheter in place draining blood tinged urine Results & Data Results & Data ([facility]) Vital Signs (Past 12 Hours) Vital Signs Temp Pulse Pulse Resp BP BP Pulse Ox 09/09/19 11:46 36.9 C 91 H 22 131/80 96 09/09/19 07:48 36.7 C 89 18 160/83 H 95 09/09/19 05:40 36.8 C 96 H 24 161/91 H 97 09/09/19 04:30 96 H 21 155/98 H 97 09/09/19 04:00 100 H 20 167/99 H 99 Resident Activity Tracking Resident Involvement: Resident Care Provided Care Provided: Adult Hospital Medicine
[2019-09-09 16:10] LABS: BUN Creatinine Ratio 37.7 (10-20); Calcium 8.7 mg/dl (8.5-10.1); Creatinine Clr Calc Pharmacy 29.8 ml/min; Est GFR (African American) 34.9; Est GFR (Non-African American) 30.1; Potassium 3.6 mmol/L (3.5-5.1)
[2019-09-09] MEDS: ASPIRIN 81 MG ECTAB PO SCH (16:34)
[2019-09-09] MEDS: SUCRALFATE 1 GM/10 ML UDC PO SCH ×3 (16:34→21:31)
[2019-09-09] MEDS: AMLODIPINE BESYLATE 5 MG TAB PO SCH (16:34)
[2019-09-10] MEDS: DEXTROSE 5% 1,000 ML IV SCH ×3 (00:07→14:15)
[2019-09-10 00:57] LABS: BUN Creatinine Ratio 34.9 (10-20); Calcium 8.4 mg/dl (8.5-10.1); Creatinine Clr Calc Pharmacy 31.8 ml/min; Est GFR (African American) 37.8; Est GFR (Non-African American) 32.6; Potassium 3.4 mmol/L (3.5-5.1)
--- NOTE | 2019-09-10 01:22 | Billing Data ---
Date of Service September 10, 2019 Coding Level of Care Code 81133 Initial Inpt Care Lvl 3
[2019-09-10] MEDS ORDERED: POTASSIUM CHLORIDE / WTR 10 MEQ/100 ML PLCT IV ONE (01:30)
[2019-09-10 06:12] LABS: Hematocrit (blood only) 35.9 % (42-52); Hemoglobin 10.8 g/dL (14.0-18.0); Mean Corpuscular Hemoglobin 31.1 pg (25-34); Mean Corpuscular Hgb Conc 30.1 g/dL (32-36); Mean Corpuscular Volume 103.5 fL (80-100); Mean Platelet Volume 12.8 fL (7.4-10.4); Platelet Count 125 K/uL (130-400); RDW Coefficient of Variation 14.7 % (11.5-14.5); RDW Standard Deviation 53.8 fL (36.4-46.3); Red Blood Count 3.47 M/uL (4.7-6.1); White Blood Count 9.15 K/uL (4.8-10.8)
[2019-09-10 06:34] LABS: Basophils # (auto) 0.02 K/uL (0-0.2); Basophils % (auto) 0.2 %; Eosinophils % (auto) 1.1 %; Immature Granulocytes # (auto) 0.08 K/uL (0.00-0.02); Immature Granulocytes % (auto) 0.9 %; Lymphocytes # (auto) 1.48 K/uL (1.2-3.4); Lymphocytes % (auto) 16.2 %; Monocytes # (auto) 0.39 K/uL (0.11-0.59); Monocytes % (auto) 4.3 %; Neutrophils # (auto) 7.08 K/uL (1.4-6.5); Neutrophils % (auto) 77.3 %; RBC Morphology Unremarkable
[2019-09-10 06:45] LABS: Albumin Level 2.6 gm/dl (3.4-5.0); BUN Creatinine Ratio 34.8 (10-20); Calcium 8.2 mg/dl (8.5-10.1); Creatinine Clr Calc Pharmacy 38.1 ml/min; Est GFR (Non-African American) 40.5; Magnesium 2.2 mg/dl (1.8-2.4); Phosphorus 2.6 mg/dl (2.5-4.9)
[2019-09-10] MEDS: SUCRALFATE 1 GM/10 ML UDC PO SCH ×4 (07:47→21:26)
[2019-09-10] MEDS: PANTOprazole 40 MG in SYRINGE 0 ML IV SCH ×2 (09:43→21:46)
[2019-09-10] MEDS: ASPIRIN 81 MG ECTAB PO SCH (09:43)
[2019-09-10] MEDS: FOLIC ACID 1 MG in SYRINGE 9.8 ML IV SCH (09:43)
[2019-09-10] MEDS: AMLODIPINE BESYLATE 5 MG TAB PO SCH (09:44)
[2019-09-10] MEDS: HEPARIN SOD 5,000 UNIT/0.5 ML VIAL SQ SCH ×2 (09:44→21:46)
[2019-09-10] MEDS: THIAMINE HCL 100 MG in SYRINGE 9 ML IV SCH (09:44)
--- NOTE | 2019-09-10 10:46 | Hospitalist Progress Note ---
Date of Service September 10, 2019 Assessment & Plan (1) Encephalopathy acute: 64 yo M who was admitted 09/08 for AMS. Of note, he was recently admitted from 08/14/19 to 08/28/19 for progressive weakness and dehydration secondary to recurrent vomiting. He was found to have gastric and duodenal ulcers as well as a gastropathy per EGD during August admission. Patient was able to tolerate PO intake by discharge on 08/28/19, however he was brought in by his for altered mental status on 09/08/19. reports diminished PO intake in days preceding admission. Patient found to be hypernatremic in ED (Na 166). A stroke alert was called on morning of 09/08 when patient reported a new visual deficit. Non-contrast head CT showing no acute bleed. Tele stroke consult with Dr. Edgar Ledbetter from [facility] - recommend Brain MRI, MRA and MRV of head. Studies ordered and showed no evidence of an infarct. Etiology of encephalopathy felt to be metabolic secondary to hypernatremia. Sodium level currently being corrected with IV D5W. Acute Metabolic Encephalopathy - likely secondary to electrolyte derangements (hypernatremia) - Na 166 on admission - head CT not ordered on admission; subsequent head imaging showing no acute intracranial abnormalities - WBC mildly elevated to 13 on admission, normal today. No concern of infection though. - liver enzymes normal - nurse reported concern for swallowing, speech consulted, recommend aspiration precautions, and meals only when mentally alert Hypovolemic Hypernatremia - poor oral intake over a wk per - Na 166 on admission - clinically hypovolemic per H&P - 5.8 l free water deficit on admission - urine sodium 33, urine osms 622 - patient was administered 2L NS boluses in ED and then started on normal saline at 1/2 maintenance fluid rate by admitting team - repeat sodium level was 167; normal saline discontinued and started on D5W at 150mls/hr - Na level at 159 this morning, level correcting at an appropriate rate - trend BMP Q6H with goal of Na decrease no greater than 10 mmol/L per 24 hours SHAGGY - Cr 3.74, BUN 93, ratio 24 on admission. Cr improved to 1.72 with IVF - likely pre-renal given hx of poor PO intake - nephrology consulted, appreciate recommendations - trend BMP, avoid nephrotoxic meds Elevated Troponin - trop 0.13 on admission, peaked at 0.15, has since downtrended - EKG without ST segment changes, no major changes from prior admission - demand ischemia with tachycardia and dehydration Leukocytosis, resolved - WBC elevated to 13 on admission, has since normalized - blood and urine cultures pending, no growth to date - CXR showing no acute process - suspect secondary to volume contraction > infection Poor oral intake preadmission - last hospital stay - concern of gallbladder dysfunction and recommended to have cholecystectomy/PUD - follow for oral intake during this hospital stay and address accordingly. Elevated Bilirubin - T bili 1.7 on admission - received full workup for gallbladder dysfunction last admission yielding mixed results re: not currently surgical candidate, ulcerations seen on EGD. - Recommendations included low fat diet and small meals. Hypoalbuminemia - albumin level 2.6 on admission - likely related to protein calorie malnutrition in setting of reduced PO intake - diet as above PUD - continue pantoprazole BID - continue carafate QID HTN - continue home amlodipine 10 mg daily - hold losartan in setting of SHAGGY DVT ppx: heparin BID FEN/GI: heart health, low fat diet. feed only when alert. No straws. aspiration precautions Dispo: PCU Code Status: Full Code (2) Hypertension: (3) SHAGGY (acute kidney injury): (4) Elevated troponin: (5) Elevated WBC count: Admission and Anticipated Discharge Date Admission Date: September 09, 2019 Supervising Physician Co-Signing Physician Notes Resident Physician Supervision Note: I independently interviewed and examined the patient and verified the squires history and physical, reviewed labs and image studies, discussed the case with the resident Dr. Tirado and agree with the findings and care plan. Subjective no acute events overnight. Patient's visited yesterday and brought glasses, however patient told her to take them back home (for fear of losing them in the hospital). Eating well. Review of Systems Review of Systems: All systems reviewed & are unremarkable except as noted in HPI & below Physical Exam Constitutional: WD/WN, vitals as above Eyes: + anicteric sclerae and reactive pupils; + abnormal visual field confrontation not wearing glasses ENMT: external ear and nose normal, oropharynx normal Neck: normal visual inspection and trachea midline Respiratory: normal respiratory effort, lungs clear to auscultation Cardiovascular: RRR, no murmur, no edema Heart Sounds: normal S1 and normal S2 Extremities: no pedal edema Gastrointestinal (Abdomen): normal bowel sounds, soft, nontender, no hepatosplenomegaly Percussion/Palpation: abdomen soft Skin: no rashes, warm and dry Neurologic: CN's II-XI intact bilaterally and moves all extremities; no focal motor deficits Speech / Cognition: normal speech Motor/Sensory: no pronator drift Coordination: normal [id number] test speech improved from 09/08 Psychiatric: A+Ox3, euthymic affect Genitourinary: + steward in place draining blood tinged urine Results & Data Results & Data ([facility]) Vital Signs (Past 12 Hours) Vital Signs Temp Pulse Pulse Resp BP Pulse Ox 09/10/19 07:39 37.0 C 66 18 122/67 96 09/10/19 04:00 36.7 C 65 17 130/70 95 09/09/19 23:59 76 09/09/19 23:26 36.5 C 78 18 120/74 92 Resident Activity Tracking Resident Involvement: Resident Care Provided Care Provided: Adult [facility]
--- NOTE | 2019-09-10 11:32 | Nephrology Progress Note ---
Date of Service September 10, 2019 Assessment & Plan (1) Acute hypernatremia: Mr. Tariq presented with 2 days history of confusion and poor p.o. intake. On admission found to be acutely hyponatremic had SHAGGY. Has been voiding normally. Was initially given IV normal saline more than 2 liters, creatinine slightly improved however hyponatremia worsened. Has more than 7 liters free water deficit. Change in mental status could be related to severe hyponatremia although concern for CVA however no focal weakness and CT head was negative. Serum sodium improved as expected to 159 with D5W. P.o. intake improved. --Continue D5W at 150 mL/hour, monitor serum sodium every 12 hours. A sodium continues to improve in next few hours, decrease D5 to 75 mL/hour. Once sodium below 155, if p.o. intake remained adequate, consider stopping D5W --if blood pressure remains and patient able to take orally, amlodipine can be resumed, otherwise consider IV hydralazine --check renal function daily Will sign off (2) Acute kidney injury: (3) Altered mental status: Admission and Anticipated Discharge Date Admission Date: September 09, 2019 Subjective Mr. Tariq Was seen and examined in his room this morning. He has awake, alert, oriented and feeling much better. Denied any symptom. Blood pressure stable 6. Sodium improved to 159. Review of Systems Review of Systems: All systems reviewed & are unremarkable except as noted in HPI & below Physical Exam Constitutional: WD/WN, vitals as above no acute distress Eyes: PERRL, conjunctivae normal, anicteric sclerae ENMT: external ear and nose normal, oropharynx normal Ears: no hearing impairment Neck: trachea midline Respiratory: normal respiratory effort, lungs clear to auscultation no cough Auscultation: no crackles, no rales and no wheezes Cardiovascular: RRR, no murmur, no edema Skin: no rashes, warm and dry Neurologic: moves all extremities and + confused; no focal motor deficits Psychiatric: Orientation: cooperative Results & Data ([facility]) Vital Signs (Past 12 Hours) Vital Signs Temp Pulse Pulse Resp BP Pulse Ox 09/10/19 07:39 37.0 C 66 18 122/67 96 09/10/19 04:00 36.7 C 65 17 130/70 95 09/09/19 23:59 76 PG Care Time/CCT Total # of Minutes Spent Total Time Spent with Patient: Total time spent is greater than 50% in coordination of care (as documented) at patient's floor/unit and/or counseling patient: Coding Level of Care Code 14446 Subseq Hosp Care Lvl 3 Diagnoses Acute hypernatremia E87.0 Acute kidney injury N17.9 Altered mental status R41.82 Altered mental status type: unspecified (1) Altered mental status Altered mental status type: unspecified Qualified Code(s): R41.82 - Altered mental status, unspecified
[2019-09-10 13:35] LABS: Calcium 8.2 mg/dl (8.5-10.1); Creatinine Clr Calc Pharmacy 42.5 ml/min; Est GFR (African American) 53.7; Est GFR (Non-African American) 46.3; Potassium 2.8 mmol/L (3.5-5.1)
--- NOTE | 2019-09-10 18:22 | XRay Report ---
XR chest 1V portable HISTORY: 64 years-old Male concern for aspiration acute shortness of breath with possible aspiration COMPARISON: Chest radiograph 09/09/2019 TECHNIQUE: Portable AP view of the chest FINDINGS: Cardiac mediastinal and hilar silhouettes are within normal limits. No pneumothorax, pleural effusion , airspace consolidation or overt pulmonary edema. Degenerative changes of the shoulders and spine. H ealed remote posttraumatic deformity of the distal right clavicle. IMPRESSION: No acute process. ACT 112: Negative or not required by law. The above report was generated using voice recognition software. It may contain grammatical, syntax o r spelling errors. Electronically signed by: Aramis Vásquez M.D. 09/10/2019 6:21 PM
[2019-09-10] MEDS: D5W AND 1/2NSS 1,000 ML IV SCH (18:29)
[2019-09-11 07:23] LABS: Albumin Level 2.6 gm/dl (3.4-5.0); BUN Creatinine Ratio 24.3 (10-20); Calcium 8.5 mg/dl (8.5-10.1); Creatinine Clr Calc Pharmacy 52.2 ml/min; Est GFR (African American) 68.4; Phosphorus 2.5 mg/dl (2.5-4.9)
[2019-09-11] MEDS: D5W AND 1/2NSS 1,000 ML IV SCH (08:23)
[2019-09-11] MEDS: PANTOprazole 40 MG in SYRINGE 0 ML IV SCH ×2 (08:23→22:09)
[2019-09-11] MEDS: THIAMINE HCL 100 MG in SYRINGE 9 ML IV SCH (08:23)
[2019-09-11] MEDS: SUCRALFATE 1 GM/10 ML UDC PO SCH ×4 (08:24→19:49)
[2019-09-11] MEDS: FOLIC ACID 1 MG in SYRINGE 9.8 ML IV SCH (08:24)
[2019-09-11] MEDS: AMLODIPINE BESYLATE 5 MG TAB PO SCH (08:25)
[2019-09-11] MEDS: HEPARIN SOD 5,000 UNIT/0.5 ML VIAL SQ SCH ×2 (08:25→22:09)
[2019-09-11] MEDS: ASPIRIN 81 MG ECTAB PO SCH (08:25)
[2019-09-11] MEDS ORDERED: D5W AND 1/2NSS + 20MEQ KCL 20 MEQ/1,000 ML BAG IV SCH (10:15)
[2019-09-11] MEDS: POTASSIUM CHLORIDE / WTR 10 MEQ/100 ML PLCT IV SCH ×4 (10:35→14:09)
--- NOTE | 2019-09-11 11:47 | Fluoroscopy Report ---
MODIFIED BARIUM SWALLOW CLINICAL HISTORY: coughing with eating COMPARISON STUDY: None. FLUOROSCOPY TIME: 3.4 minutes. TECHNIQUE: A modified barium swallow was performed in conjunction with Speech Pathology. The patient ingested varying consistencies of barium containing material. Video fluoroscopy was performed. FINDINGS: Penetration was noted with swallows of thin liquids. There was no aspiration with thin liqu ids, nectar thick liquids, pudding or crackers with paste. Of note, the esophagus is moderately dilat ed. Esophageal motility appears diminished. The esophagus is suboptimally assessed on this examinatio n. IMPRESSION: 1. No tracheal aspiration identified. 2. Moderately dilated esophagus which is suboptimally assessed on this exam. Esophageal dysmotility. A barium swallow is recommended for further evaluation. 3. Full recommendations by speech pathology to follow. ACT 112: Negative or not required by law. Electronically signed by: Shane Braun M.D. 09/11/2019 11:46 AM
[2019-09-11] MEDS ORDERED: METOCLOPRAMIDE HCL INJ 5 MG/ML 2 ML VIAL IV ONE (11:51)
--- NOTE | 2019-09-11 12:05 | Hospitalist Progress Note ---
Date of Service September 11, 2019 Assessment & Plan (1) Encephalopathy acute: 64 yo M who was admitted 09/08 for AMS. Of note, he was recently admitted from 08/14/19 to 08/28/19 for progressive weakness and dehydration secondary to recurrent vomiting. He was found to have gastric and duodenal ulcers as well as a gastropathy per EGD during August admission. Patient was able to tolerate PO intake by discharge on 08/28/19, however he was brought in by his for altered mental status on 09/08/19. reports diminished PO intake in days preceding admission. Patient found to be hypernatremic in ED (Na 166). A stroke alert was called on morning of 09/08 when patient reported a new visual deficit. Non-contrast head CT showing no acute bleed. Tele stroke consult with Dr. Edgar Ledbetter from [facility] [place] - recommend Brain MRI, MRA and MRV of head. Studies ordered and showed no evidence of an infarct. Etiology of encephalopathy felt to be metabolic secondary to hypernatremia. Sodium level currently being corrected with IV D5W. Acute Metabolic Encephalopathy: - Na 166 on admission, today 155 after IVF. - Head CT not ordered on admission; subsequent head imaging showing no acute intracranial abnormalities. - WBC mildly elevated to 13 on admission, normal following. - Liver enzymes normal. - Nurse reported concern for swallowing, swallow study performed and patient vomited immediately following, made NPO. - Will continue to give IVF for hypernatremia as below. Hypovolemic Hypernatremia: - Poor oral intake over a wk per - Na 166 on admission - clinically hypovolemic per H&P - 5.8 l free water deficit on admission - urine sodium 33, urine osms 622 - patient was administered 2L NS boluses in ED and then started on normal saline at 1/2 maintenance fluid rate by admitting team - repeat sodium level was 167; normal saline discontinued and started on IVF at 150mls/hr - Na level at 155 this morning from 153, noted that fluids were D5 1/2NSS, have switched to D5W per Nephrology recommendations from 09/09. - BMP now pending, will titrate fluids as needed to ensure dropping at reasonable rate. Dysphagia causing severe protein calorie malnutrition: - Patient has been without adequate PO intake at least since discharge from last admission, if not prior to that based on the history he gave this AM. - Possibly 2/2 PUD however prior to last discharge was started on carafate and PPI BID without any improvement. - This admission with swallow study that shows moderately enlarged esophagus and esophageal dysmotility. - Continue NPO for now. - Will start PPN while actively evaluating for causes of dysphagia and vomiting. - Have consulted GI given above findings and continued inability to tolerate PO. - Have consulted Gen. Surgery, as last admission he was found to have gallbladder EF 4%, and continues to have symptoms despite adequate treatment for PUD. SHAGGY, resolved: - Cr 3.74, BUN 93, ratio 24 on admission. Cr improved to 1.26 with IVF. - Suspect pre-renal given hx of poor PO intake . - Nephrology consulted, appreciate recommendations to switch to D5W and continue IVF until patient has good PO intake. - Trend BMP, avoid nephrotoxic meds. Elevated Troponin: - trop 0.13 on admission, peaked at 0.15, has since downtrended - EKG without ST segment changes, no major changes from prior admission - demand ischemia with tachycardia and dehydration Leukocytosis, resolved: - WBC elevated to 13 on admission, has since normalized - blood and urine cultures pending, no growth to date - CXR showing no acute process - suspect secondary to volume contraction > infection Elevated Bilirubin: - T bili 1.7 on admission - received full workup for gallbladder dysfunction last admission yielding mixed results re: not currently surgical candidate, ulcerations seen on EGD. - Recommendations included low fat diet and small meals. - Sugery consult as above given continued nausea and vomiting. Hypoalbuminemia: - albumin level 2.6 on admission. - likely related to protein calorie malnutrition in setting of reduced PO intake . - PPN as above. PUD: - continue pantoprazole BID. - continue carafate QID. HTN: - continue home amlodipine 10 mg daily. - hold losartan in setting of SHAGGY . DVT ppx: heparin BID FEN/GI: NPO Dispo: PCU Code Status: Full Code (2) Hypertension: (3) SHAGGY (acute kidney injury): (4) Elevated troponin: (5) Elevated WBC count: Admission and Anticipated Discharge Date Admission Date: September 09, 2019 Supervising Physician Co-Signing Physician Notes Resident Physician Supervision Note & Attestation: Pt seen/examined, chart reviewed, care plan d/w PGY2 Dr Jemma Hobbs. I agree w/ the squires components of her documentation. 64yo male with ongoing failure to thrive, SEVERE PROTEIN CALORIE MALNUTRITION due to chronic vomiting/feeding intolerance, and hypernatremia. Patient confused during bedside rounds today with Dr Hobbs. Underwent video swallow today with speech - had significant regurgitation of crackers/water following the test. Exam - gen - chronically ill-appearing, thin mouth - no thrush, MM dry skin - turgor poor heart - RRR, s1 s2 lungs - CTA b/l abd - soft NT ND BS+ no HSM ext - no edema A/P: 1. hypernatremia - agree w/ changing to D5W. Free H20 deficit noted. Recheck BMP this afternoon to ensure correction is appropriate. 2. severe protein calorie malnutrition - speech advising NPO status due to results of video swallow today. Consider Coresafe feeding tube placement and enteral feedings vs PPN. 3. persistent feeding intolerance / vomiting - 2nd to biliary dyskin esia/chronic cholecystitis? motility d/o of upper GI tract? achalasia? other ? MRI brain noted to be normal. cortisol and TSH wnl. reconsult GI and gen surg. 4. metabolic encephalopathy - 2nd to #1? Josh Bowling MD Subjective Patient without acute events overnight. When speaking with the patient this AM he was conversational, alert and oriented. Was stating that for about 3 weeks, even since his last discharge, he has been unable to tolerate much PO intake including water. Will immediately feel nauseated following eating or drinking a nything and will throw up. This was not improved by the carafate and protonix given to him on discharge last admission. No other complaints, no abdominal pain, SOB, CP, palpitations. Today immediately following his swallow study he vomited the contrast material and some crackers. On repeat interview shortly after with Dr. Bowling present patient was alert but oriented only to name, did not recall having any difficulty eating or with vomiting. Review of Systems Constitutional: no fever, no chills and no malaise Respiratory: no cough and no dyspnea Cardiovascular: no chest pain, no palpitations and no edema Gastrointestinal: + nausea and + vomiting; no abdominal pain, no constipation and no diarrhea/loose stools Physical Exam Constitutional: WD/WN, vitals as above no acute distress Eyes: PERRL, conjunctivae normal, anicteric sclerae Respiratory: normal respiratory effort, lungs clear to auscultation no cough Auscultation: no crackles, no rales and no wheezes Cardiovascular: RRR, no murmur, no edema Gastrointestinal (Abdomen): normal bowel sounds, soft, nontender, no hepatosplenomegaly Skin: no rashes, warm and dry Neurologic: moves all extremities and + confused (intermittent, different levels at different times of day as above in HPI); no focal motor deficits Psychiatric: Orientation: cooperative Results & Data Results & Data ([facility]) Vital Signs (Past 12 Hours) Vital Signs Temp Pulse Resp BP Pulse Ox 09/11/19 11:59 36.9 C 70 18 109/60 92 09/11/19 07:46 36.8 C 80 16 121/74 98 09/11/19 04:23 36.7 C 70 19 103/57 L 92 Resident Activity Tracking Resident Involvement: Resident Care Provided Care Provided: Adult Hospital Medicine
--- NOTE | 2019-09-11 15:10 | Consultation Report ---
DATE OF CONSULTATION: 09/11/2019 GASTROINTESTINAL CONSULTATION NOTE REASON FOR EVALUATION: Vomiting and hypernatremia. HISTORY OF PRESENT ILLNESS: The patient is a 64-year-old who I had seen last month when he was hospitalized with similar symptoms. At that time, he had an EGD, which just showed some gastritis and small gastric ulcer in the antrum and a small duodenal ulcer that he has been treated for the last month and despite this, the patient continues to have a poor p.o. intake and nausea. He presented with a sodium of 163, BUN 72, creatinine 2.06. After a day and a half of hydration, his sodium is down to 155, BUN is 31, creatinine is 1.26. He did have altered mental status when he was hypernatremic. During his last hospitalization, the patient was noted to have small gallstones in his gallbladder with an ejection fraction of only 4%. He was seen by surgery, but they felt that this was not the primary cause for his symptoms and did not think that an operation was warranted at that time. PAST MEDICAL HISTORY: Hypertension, thrombocytopenia. MEDICATIONS: Amlodipine, losartan, methocarbamol, pantoprazole, potassium chloride. ALLERGIES: BEE VENOM. SOCIAL HISTORY: The patient is , former smoker, no alcohol. PHYSICAL EXAMINATION: GENERAL: The patient was sleepy, but arousable. ABDOMEN: Shows an abdominal scar from a previous right hemicolectomy. Abdomen is tender in the right epigastric area with guarding by the patient. LABORATORY DATA: White count is elevated at 13.84, which could be from hemoconcentration. Liver profile is normal. TSH is normal. The patient had a video swallow earlier today, which showed a slightly dilated esophagus. This was not noted on his EGD a month ago and I doubt it has any clinical significance. IMPRESSION AND PLAN: The patient is having poor p.o. intake and nausea with hypernatremia, dehydration on admission. He does have a history a month ago of some minimal ulcerations, which have been treated for a month and likely healed. He does have a significant history for gallstones and a low ejection fraction of only 4%. He is now tender in the right upper quadrant on physical examination, and I suspect that the patient has chronic gallbladder disease and this is probably the etiology for his failure to thrive and able to maintain his nutrition and hydration status. I agree with a reevaluation by general surgery for consideration for cholecystectomy.
--- NOTE | 2019-09-11 15:11 | Surgery Consultation ---
Date of Consultation September 11, 2019 Assessment & Plan (1) Dysfunctional gallbladder: pt was admitted to hospital for nausea and vomiting, HIDA scan EF 4%. IMP: dysfunction of gallbladder I recommend to do laparoscopic cholecystectomy, D/W benefits, risks and alternatives of the surgery, but pt refuse to do surgery, U/S study- gallbladder, will F/U Supervising Physician Co-Signing Physician Notes Resident Physician Supervision Note: I independently interviewed and examined the patient and verified the squires history and physical, reviewed labs and image studies, discussed the case with the resident Dr. Tirado and agree with the findings and care plan. History of Present Illness Attending Physician: Rose Delcid MD History of Present Illness 64 yo M with PMH HTN, refeeding syndrome, recently discharged from [facility] on 08/27 brought back to the ED by his for worsening confusion and altered mental status. She states that approximately 1 week ago he started to seem a little off but progressively was eating and drinking less and less. She states he did not complain of any nausea, vomiting, problems urinating while he was still commu nicative. I ( Arvin Patel mD ) got a call for consult dysfunction gallbladder, I reviewed pt's H/P, labs, HIDA scan with pt, pt is still have some RUQ pain with nausea nd vomiting, no fever, pt had swallow study- IMPRESSION: 1. No tracheal aspiration identified. 2. Moderately dilated esophagus which is suboptimally assessed on this exam. Esophageal dysmotility. A barium swallow is recommended for further evaluation. 3. Full recommendations by speech pathology to follow. Primary Care Provider: Lobito Orourke Jr, DO Allergies Allergy/AdvReac Type Severity Reaction Status Date / Time bee venom protein (honey bee) Allergy Severe ANAPHYLACTIC Verified 09/09/19 02:21 REACTION A CHILD Home Medications Home Medications Medication Instructions Recorded Confirmed Type amlodipine 10 mg PO DAILY 08/14/19 09/09/19 History epinephrine [EpiPen] 0.3 mg IM DIRECTED PRN 08/14/19 09/09/19 History losartan 100 mg PO DAILY 08/14/19 09/09/19 History methocarbamol 750 mg PO BID PRN #0 tab 08/28/19 09/09/19 Rx pantoprazole 40 mg PO BID 30 Days #60 tab 08/28/19 09/09/19 Rx potassium chloride 20 meq PO DAILY #1200 ml 08/28/19 09/09/19 Rx Past Med/Surg History Medical History (Updated 09/09/19 @ 05:49 by Renetta Phillips DO) SHAGGY (acute kidney injury) Chronic back pain Electrolyte abnormality Clinically consistent with dehydration, NSAID use, uric acid nephropathy, and ATN. Tolerating IVF well. Creatinine continues to improve. Uremia also improving with management. Free water deficit persist (~4.5 L). Unable to tolerate medications or fluids by mouth. IVF switched to 1/4 NaCl + 20 KCl @ 200 ml/h yesterday evening. Urine appropriately alkaline. Noted UA crystals in urine yesterday AM. Serum UA level improving. Hypokalemia and hypophosphatemia noted. magnesium falling. K phos x 30 mmol IV ordered. Will continue to monitor labs twice daily and replace as needed. No adjustment to IVF infusion at this time. Hematemesis Hypertension Thrombocytopenia Vomiting Surgical History (Updated 08/29/19 @ 00:03 by Elyse Prasad) H/O right hemicolectomy Social History Preferred Language: Surinamese Communication Ability: Impaired Communication Ability Comment: Impaired at present time due to AMS Ruling Machine Feeder Required: No Beliefs That Will Affect Care: None Current Living Situation: Spouse Other Information That Helps Us Care for You: No Feels Safe at Home: Yes Safety Concerns: Feels Safe At This Time Smoking Status: Former smoker Do You Dip or Chew Tobacco: No ; Smoking End Date: 2018 ; Second Hand Exposure: No ; Tobacco Cessation Education Requested by Patient: No Hx Alcohol Use: No Hx Substance Use: No Review of Systems Review of Systems: Unobtainable due to cognitive status Allergies Allergy/AdvReac Type Severity Reaction Status Date / Time bee venom protein (honey bee) Allergy Severe ANAPHYLACTIC Verified 09/09/19 02:21 REACTION A CHILD Home Medications Home Medications Medication Instructions Recorded Confirmed Type amlodipine 10 mg PO DAILY 08/14/19 09/09/19 History epinephrine [EpiPen] 0.3 mg IM DIRECTED PRN 08/14/19 09/09/19 History losartan 100 mg PO DAILY 08/14/19 09/09/19 History methocarbamol 750 mg PO BID PRN #0 tab 08/28/19 09/09/19 Rx pantoprazole 40 mg PO BID 30 Days #60 tab 08/28/19 09/09/19 Rx potassium chloride 20 meq PO DAILY #1200 ml 08/28/19 09/09/19 Rx Patient History Medical History (Updated 09/11/19 @ 15:15 by Arvin Patel MD) SHAGGY (acute kidney injury) Chronic back pain Electrolyte abnormality Clinically consistent with dehydration, NSAID use, uric acid nephropathy, and ATN. Tolerating IVF well. Creatinine continues to improve. Uremia also improving with management. Free water deficit persist (~4.5 L). Unable to tolerate medications or fluids by mouth. IVF switched to 1/4 NaCl + 20 KCl @ 200 ml/h yesterday evening. Urine appropriately alkaline. Noted UA crystals in urine yesterday AM. Serum UA level improving. Hypokalemia and hypophosphatemia noted. magnesium falling. K phos x 30 mmol IV ordered. Will continue to monitor labs twice daily and replace as needed. No adjustment to IVF infusion at this time. Hematemesis Hypertension Thrombocytopenia Vomiting Surgical History (Updated 08/29/19 @ 00:03 by Elyse Prasad) H/O right hemicolectomy Social History Preferred Language: Surinamese Communication Ability: Impaired Communication Ability Comment: Impaired at present time due to AMS Ruling Machine Feeder Required: No Beliefs That Will Affect Care: None Current Living Situation: Spouse Other Information That Helps Us Care for You: No Feels Safe at Home: Yes Safety Concerns: Feels Safe At This Time Smoking Status: Former smoker Do You Dip or Chew Tobacco: No ; Smoking End Date: 2018 ; Second Hand Exposure: No ; Tobacco Cessation Education Requested by Patient: No Hx Alcohol Use: No Hx Substance Use: No Review of Systems Review of Systems: All systems reviewed & are unremarkable except as noted in HPI & below Constitutional: as per Subjective / HPI Eyes: as per Subjective / HPI Ear, Nose, Mouth, Throat: as per Subjective / HPI Respiratory: as per Subjective / HPI Cardiovascular: as per Subjective / HPI Gastrointestinal: as per Subjective / HPI Genitourinary: + problem reported (SHAGGY) Musculoskeletal: as per Subjective / HPI Integumentary: as per Subjective / HPI Neurologic: as per Subjective / HPI Psychiatric: as per Subjective / HPI Endocrine: as per Subjective / HPI Hematologic / Lymphatic: as per Subjective / HPI Physical Exam Constitutional: WD/WN, vitals as above well developed and + ill appearing Eyes: PERRL, conjunctivae normal, anicteric sclerae ENMT: external ear and nose normal, oropharynx normal Neck: trachea midline, no thyromegaly Respiratory: normal respiratory effort, lungs clear to auscultation Cardiovascular: RRR, no murmur, no edema Rate/Rhythm: regular rate and regular rhythm Gastrointestinal (Abdomen): normal bowel sounds, soft, nontender, no hepatosplenomegaly mild tenderness at RUQ, no rebound pain, BS +, no distend Musculoskeletal: no cyanosis or clubbing, extremities motor strength 5/5 Skin: no rashes, warm and dry Neurologic: patellar DTR's 2+ bilat, sensation intact Psychiatric: Orientation: alert and oriented x 3 Results & Data Vital Signs (Past 12 Hours) Vital Signs Temp Pulse Resp BP Pulse Ox 09/11/19 11:59 36.9 C 70 18 109/60 92 09/11/19 07:46 36.8 C 80 16 121/74 98 09/11/19 04:23 36.7 C 70 19 103/57 L 92 Laboratory Results Abnormal lab results 09/10/19 09/11/19 Range/Units 20:29 06:00 Sodium 153 H 155 H (136-145) mmol/L Potassium 3.0 L (3.5-5.1) mmol/L Chloride 122 H (98-107) mmol/L BUN 31 H (7-18) mg/dl BUN/Creatinine Ratio 24.3 H (10-20) Albumin 2.6 L (3.4-5.0) gm/dl Diagnostic Findings MODIFIED BARIUM SWALLOW CLINICAL HISTORY: coughing with eating COMPARISON STUDY: None. FLUOROSCOPY TIME: 3.4 minutes. TECHNIQUE: A modified barium swallow was performed in conjunction with Speech Pathology. The patient ingested varying consistencies of barium containing material. Video fluoroscopy was performed. FINDINGS: Penetration was noted with swallows of thin liquids. There was no aspiration with thin liquids, nectar thick liquids, pudding or crackers with paste. Of note, the esophagus is moderately dilated. Esophageal motility appears diminished. The esophagus is suboptimally assessed on this examination. IMPRESSION: 1. No tracheal aspiration identified. 2. Moderately dilated esophagus which is suboptimally assessed on this exam. Esophageal dysmotility. A barium swallow is recommended for further evaluation. 3. Full recommendations by speech pathology to follow. NM hepatobiliary EF CLINICAL HISTORY: RUQ pain, vomiting cholelithiasis COMPARISON STUDY: CT scan dated 08/14/2019 FINDINGS: The patient was injected with 5.6 mCi of technetium 99 M Choletec. Anterior imaging was performed. Hepatic excretion appeared unremarkable. There was normal passage of activity into small bowel. The gallbladder was first visualized on the 55 minute image. At 1 hour, the patient was injected with 1.4 mcg of sincalide utilizing a 30 minute infusion. The gallbladder ejection fraction was abnormal measuring 4%. There is mild bile reflux into the stomach. IMPRESSION: 1. No evidence of cystic duct obstruction 2. Abnormal gallbladder ejection fraction measuring 4%
[2019-09-11] MEDS: POTASSIUM CHLORIDE 20 MEQ in DEXTROSE 5% 1,000 ML IV SCH (15:53)
[2019-09-11] MEDS ORDERED: TPN/PPN CONSULT PHARMACY STA (17:05)
[2019-09-11] MEDS ORDERED: TPN/PPN CONSULT PHARMACY PRN (17:46)
[2019-09-11 19:14] LABS: BUN Creatinine Ratio 23.3 (10-20); Calcium 8.5 mg/dl (8.5-10.1); Creatinine Clr Calc Pharmacy 59.3 ml/min; Est GFR (African American) 79.8; Est GFR (Non-African American) 68.8
[2019-09-12] MEDS: POTASSIUM CHLORIDE 20 MEQ in DEXTROSE 5% 1,000 ML IV SCH ×3 (00:25→16:53)
--- NOTE | 2019-09-12 05:41 | Billing Data ---
Date of Service September 11, 2019 Coding Level of Care Code 82136 Subseq Hosp Care Lvl 3
[2019-09-12 06:58] LABS: Hematocrit (blood only) 33.4 % (42-52); Hemoglobin 10.4 g/dL (14.0-18.0); Mean Corpuscular Hemoglobin 30.8 pg (25-34); Mean Corpuscular Hgb Conc 31.1 g/dL (32-36); Mean Corpuscular Volume 98.8 fL (80-100); Mean Platelet Volume 13.5 fL (7.4-10.4); Platelet Count 119 K/uL (130-400); RDW Coefficient of Variation 13.8 % (11.5-14.5); RDW Standard Deviation 47.8 fL (36.4-46.3); Red Blood Count 3.38 M/uL (4.7-6.1); White Blood Count 6.84 K/uL (4.8-10.8)
[2019-09-12 07:00] LABS: Basophils # (auto) 0.02 K/uL (0-0.2); Basophils % (auto) 0.3 %; Eosinophils # (auto) 0.12 K/uL (0-0.5); Eosinophils % (auto) 1.8 %; Giant Platelets 1+; Immature Granulocytes # (auto) 0.11 K/uL (0.00-0.02); Immature Granulocytes % (auto) 1.6 %; Lymphocytes # (auto) 1.01 K/uL (1.2-3.4); Lymphocytes % (auto) 14.8 %; Monocytes % (auto) 7.3 %; Neutrophils # (auto) 5.08 K/uL (1.4-6.5); Neutrophils % (auto) 74.2 %; Platelet Estimate Decreased (Normal)
[2019-09-12 07:03] LABS: BUN Creatinine Ratio 17.8 (10-20); Calcium 8.3 mg/dl (8.5-10.1); Creatinine Clr Calc Pharmacy 67.2 ml/min; Est GFR (African American) 92.7; Magnesium 1.6 mg/dl (1.8-2.4); Potassium 2.9 mmol/L (3.5-5.1)
[2019-09-12 07:06] LABS: Bilirubin,Total 0.8 mg/dl (0.2-1); Phosphorus 2.1 mg/dl (2.5-4.9)
[2019-09-12] MEDS ORDERED: POTASSIUM PHOS 3 MMOL/1 ML INFUSION IV STA (07:17)
[2019-09-12] MEDS ORDERED: POTASSIUM PHOSPHATE 15 MMOL in SODIUM CHLORIDE 0.9% 250 ML IV STA (07:17)
--- NOTE | 2019-09-12 07:20 | Ultrasound Report ---
US abdomen limited HISTORY: 64 years-old Male gallbladder, acute right upper quadrant abdominal pain COMPARISON: CT abdomen and pelvis 08/14/2019 TECHNIQUE: Multiple real-time sonographic images of the abdominal right upper quadrant were obtained assessing grayscale appearance and color flow FINDINGS: The visualized pancreas is unremarkable. Common bile duct is mildly dilated at 7 mm. ill-defined area of increased echogenicity involves the medial left hepatic lobe likely corresponding with focal fat adjacent to the falciform ligament, 2.0 cm in greatest dimension. Liver is otherwise unremarkable. Th e gallbladder is moderately distended measuring up to 13.6 cm in length. Layering gallbladder sludge with cholelithiasis. Sonographic Live sign reported as negative. There is trace pericholecystic flu id. The gallbladder wall is normal at 2 mm. No right-sided hydronephrosis. Probable cyst of the interpolar right kidney, 9 mm. IMPRESSION: 1. Distended gallbladder with layering sludge and cholelithiasis. There is no appreciable gallbladder wall thickening and the sonographic Live sign was reported as negative. There is however mild farzana cholecystic fluid. Correlate clinically to exclude developing acute cholecystitis. A nuclear medicine hepatobiliary scan may also be considered. 2. Mildly dilated common bile duct, 7 mm. 3. Focal area of increased echogenicity of the anterior aspect medial left hepatic lobe is suggestive of probable focal fat. ACT 112: Negative or not required by law. The above report was generated using voice recognition software. It may contain grammatical, syntax o r spelling errors. Electronically signed by: Aramis Vásquez M.D. 09/12/2019 7:19 AM
--- NOTE | 2019-09-12 07:48 | Hospitalist Progress Note ---
Date of Service September 12, 2019 Assessment & Plan (1) Encephalopathy acute: 64 yo M admitted for AMS and hypernatremia. Acute Metabolic Encephalopathy: - Na 166 on admission, today 149 after D5W @ 125 overnight. - Head CT not ordered on admission; subsequent head imaging showing no acute i ntracranial abnormalities. - WBC mildly elevated to 13 on admission, normal following. - Liver enzymes normal. - Nurse reported concern for swallowing, swallow study performed and patient vomited immediately following, made NPO. - Will continue to give IVF for hypernatremia as below, until converted to PPN this afternoon. Hypovolemic Hypernatremia: - Poor oral intake over a week per . - Na 166 on admission. - Clinically hypovolemic per H&P with 5.8L free water deficit on admission. - Urine sodium 33, urine osms 622. - Patient was administered 2L NS boluses in ED and then started on normal saline at 1/2 maintenance fluid rate by admitting team - Repeat sodium level was 167; normal saline discontinued and started on IVF at 150mls/hr. - Na level at 155 yesterday, noted that fluids were D5 1/2NSS, switched to D5W per Nephrology recommendations from 09/09. - Na today 149, Na decreasing appropriately given fluids. Free water will be given in similar volume with PPN starting this afternoon. - Continue to monitor BMP. Dysphagia and vomiting causing severe protein calorie malnutrition and electrolyte abnormalities: - Patient has been without adequate PO intake at least since discharge from last admission, if not prior to that based on the history he gave this AM. - Possibly 2/2 PUD however prior to last discharge was started on Carafate and PPI BID without any improvement. - This admission with swallow study that shows moderately enlarged esophagus and esophageal dysmotility. - Abdominal US showed findings suggestive of biliary dyskinesia, and patient has prior study which shows EF 4%. - Continue NPO for now. - Will start PPN while actively evaluating for causes of dysphagia and vomiting. - Have consulted GI given above findings and continued inability to tolerate PO. - Have consulted Gen. Surgery, yesterday patient refused cholecystectomy however this AM does not recall meeting a new surgeon and is amenable to discussing cholecystectomy. - Mg this AM 1.6, repleted with MagOx 2g IV. - Phos this AM 2.1, repleted with KPhos 15mmol. - K this AM 2.9, repleted with KPhos as above plus KRiders 40meq IV. - Repeat BMP 3PM. SHAGGY, resolved: - Cr 3.74, BUN 93, ratio 24 on admission. Cr improved to 1.26 with IVF. - Suspect pre-renal given hx of poor PO intake . - Nephrology consulted, appreciate recommendations to switch to D5W and continue IVF until patient has good PO intake. - Trend BMP, avoid nephrotoxic meds. Elevated Troponin: - trop 0.13 on admission, peaked at 0.15, has since downtrended - EKG without ST segment changes, no major changes from prior admission - demand ischemia with tachycardia and dehydration Leukocytosis, resolved: - WBC elevated to 13 on admission, has since normalized - blood and urine cultures pending, no growth to date - CXR showing no acute process - suspect secondary to volume contraction > infection Elevated Bilirubin: - T bili 1.7 on admission - Received full workup for gallbladder dysfunction last admission yielding mixed results re: not currently surgical candidate, ulcerations seen on EGD. - Recommendations included low fat diet and small meals. - Surgery consult as above given continued nausea and vomiting. Hypoalbuminemia: - Albumin level 2.6 on admission. - Likely related to protein calorie malnutrition in setting of reduced PO intake . - PPN as above. PUD: - Continue pantoprazole BID. - Continue carafate QID. HTN: - Hold amlodipine given NPO. Normotensive at this time. - Hold losartan in setting of SHAGGY . DVT ppx: Heparin BID FEN/GI: NPO Dispo: PCU Code Status: Full Code (2) Hypertension: (3) SHAGGY (acute kidney injury): (4) Elevated troponin: (5) Elevated WBC count: Admission and Anticipated Discharge Date Admission Date: September 09, 2019 Supervising Physician Co-Signing Physician Notes I personally examined the patient and verified all squires points of history and exam, discussed case, and agree with decision making with Dr Link. feeling better. would like to try to eat something. describes diet at home - mostly soft and easy goes down vitals noted nad heent nc at mmm breathing unlabored. abd soft nd nt no guarding no rebound. A/P: 1. hypernatremia -from poor PO intake, water deficit. improved. continue to follow 2. severe protein calorie malnutrition - IV nutrition. cautious liquid diet (since he appears to have tolerated that well before) and follow closely 3. 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 treat all of underlying causes (for now follow achalasia w easy to swallow diet and hopefull w correction of 'lytes and malnutrition this will improve, if not can consider med management) 4. metabolic encephalopathy - related to above. fortunately more stable today Subjective No acute events overnight. This AM is alert and oriented, does not recall meeting Dr. Patel yesterday to discuss removing his gallbladder. Remembers meeting me yesterday morning, but does not recall meeting Dr. Bowling. Recalls that last admission Dr. Foreman said that at that time no gallbladder removal was warranted. Would like to discuss again with Dr. Patel today. Review of Systems Constitutional: no fever, no chills and no malaise Respiratory: no cough and no dyspnea Cardiovascular: no chest pain, no palpitations and no edema Gastrointestinal: + vomiting; no abdominal pain, no constipation and no diarrhea/loose stools Physical Exam Constitutional: WD/WN, vitals as above no acute distress Eyes: PERRL, conjunctivae normal, anicteric sclerae Respiratory: normal respiratory effort, lungs clear to auscultation no cough Auscultation: no crackles, no rales and no wheezes Cardiovascular: RRR, no murmur, no edema Gastrointestinal (Abdomen): normal bowel sounds, soft, nontender, no hepatosplenomegaly Skin: no rashes, warm and dry Neurologic: moves all extremities and + confused (intermittent, different levels at different times of day as above in HPI); no focal motor deficits Psychiatric: Orientation: cooperative Results & Data Results & Data ([facility]) Vital Signs (Past 12 Hours) Vital Signs Temp Pulse Pulse Resp BP Pulse Ox 09/12/19 03:12 37.0 C 70 17 99/60 L 98 09/11/19 23:24 36.6 C 65 18 94/58 L 94 09/11/19 23:08 68 09/11/19 20:04 36.7 C 70 23 100/60 98 Resident Activity Tracking Resident Involvement: Resident Care Provided Care Provided: Adult [facility]
[2019-09-12] MEDS: POTASSIUM CHLORIDE / WTR 10 MEQ/100 ML PLCT IV SCH ×4 (08:15→13:19)
[2019-09-12] MEDS: MAGNESIUM SULFATE / D5W 1 GM/100 ML BAG IV SCH ×2 (08:16→10:26)
[2019-09-12] MEDS: SUCRALFATE 1 GM/10 ML UDC PO SCH ×4 (08:31→20:46)
[2019-09-12] MEDS: FOLIC ACID 1 MG in SYRINGE 9.8 ML IV SCH (08:33)
[2019-09-12] MEDS: THIAMINE HCL 100 MG in SYRINGE 9 ML IV SCH (08:34)
[2019-09-12] MEDS: PANTOprazole 40 MG in SYRINGE 0 ML IV SCH ×2 (08:34→20:45)
[2019-09-12] MEDS: HEPARIN SOD 5,000 UNIT/0.5 ML VIAL SQ SCH ×2 (08:34→20:46)
[2019-09-12] MEDS ORDERED: DEXTROSE 10% 1,000 ML IV PRN (10:02)
--- NOTE | 2019-09-12 11:09 | Pharmacy Report ---
Pharmacy PN Initial Consult - Date of Service September 12, 2019 - Scope Pharmacy has been consulted to manage parenteral nutrition orders and order appropriate labs. As part of the Nutrition Support Team guidelines, pharmacy will work in conjunction with dietary when determining the patients caloric needs. - Subjective The patient is a 64 year old M admitted on 09/09/19 04:35 for DEHYDRATION, AMS. Patient is to receive parenteral nutrition for [INDICATION]. Pertinent PMH: - Objective Height: 5 ft 8 in Weight: 64.1 kg Intake & Output (Last 24Hrs): Intake & Output 09/10/19 09/11/19 09/12/19 09/13/19 06:59 06:59 06:59 06:59 Intake Total 4320.00 / 4320.00 1398.75 / 1398.75 2575 / 2575 1210.000 / 1210.000 Output Total 1100 / 1100 1500 / 1500 1050 / 1050 Balance 3220.00 / 3220.00 -101.25 / -101.25 1525 / 1525 1210.000 / 1210.000 Weight 63.7 kg 64 kg 64.1 kg 64.1 kg Laboratory Data (Last 24 Hrs):: 09/11/19 09/12/19 18:10 05:28 Sodium 149 H 146 H Potassium 3.0 L 2.9 L Chloride 117 H 113 H Carbon Dioxide 25 28 BUN 26 H 17 Creatinine 1.11 0.98 Glucose 125 H 102 H Calcium 8.5 8.3 L Phosphorus 2.1 L Magnesium 1.6 L Total Bilirubin 0.8 AST 17 ALT 24 Alkaline Phosphatase 66 Triglycerides 169 H Nutrition Assessment:: Please refer to the Notes section of the EMR for the most recent family living educator note. - Assessment 64 yo male with history of poor po intake with 11.4% weight loss in <1 month, currently NPO with evaluation for possible cholecystectomy. Consulted for peripheral parenteral nutrition. F: D5W + 20 K @125 mL/hr E: Na 146, K 2.9, Cl 113, Mag 1.6, Phos 2.1 N: Albumin 2.6, TG 169, BSG 102 Patient is already receiving 150 gm of dextrose peripherally with electrolyte abnormalities- possibly having refeeding from this? Discussed with hospitalist need to replete electrolytes prior to starting ppn, recheck at 1500 today although dextrose is main culprit for this. Also discussed possible slight reduction in dextrose content if starting ppn later today after electrolyte check. - Plan For day 1 of PN administration, the following will be ordered: Macronutrients Amino acids 75 grams/day [id number] grams/day Lipids 25 grams/day Micronutrients Potassium phosphate 21 mMol Potassium acetate 60 mEq Magnesium sulfate 4.06 mEq Calcium gluconate 4.65 mEq Multivitamins 10 mL Trace Elements 10 mL Additional additives: Thiamine 100 mg, Folic acid 1 mg Total volume 2500 mL to be infused over 24 hrs will provide 975 kcal/day Final osmolarity 599.35 mOsm/L (maximum for PPN is 900 mOsm/L) Labs to be ordered per PN order protocol Pharmacy will follow and adjust parenteral nutrition orders on a daily basis. Thank you.
--- NOTE | 2019-09-12 12:30 | Surgery Progress Note ---
Date of Service September 12, 2019 Assessment & Plan (1) Dysfunctional gallbladder: pt was admitted to hospital for nausea and vomiting, HIDA scan EF 4% (workup during prior admission) DDx: Biliary dyskinesia, esophageal dysmotility no leukocytosis resolution of patients abdominal pain no n/v today afebrile US showing distended gallbladder with sludge and stones however no wall thickening, negative live's sign. Mild pericholecystic fluid. Plan: No acute surgical plans for laparoscopic cholecystectomy as patient is not having any pain, no leukocytosis, fever, or signs of micha acute cholecystitis on ultrasound. Asymptomatic today. Discussed with patient he likely needs further GI work-up given esophageal dilatation. Can follow-up in surgical office as an outpatient to discuss elective cholecystectomy. Okay from surgery standpoint for liquids if cleared by speech therapy Peripheral PPN starting today Continue medical management surgery signing off, please call with questions or concerns Dr. Patel has seen patient and present during my examination, agrees with above. Subjective feeling better today denies of any abdominal pain denies of any nausea or vomiting, has not had anything to eat for the past 2 days however Physical Exam Constitutional: WD/WN, vitals as above not ill appearing Gastrointestinal (Abdomen): Inspection/Auscultation: abdomen normal to inspection; abdomen not distended Percussion/Palpation: abdomen soft; abdomen nontender, no guarding and abdomen not rigid Skin: no rashes, warm and dry Psychiatric: Orientation: alert and oriented x 3 Results & Data Vital Signs (Past 12 Hours) Vital Signs Temp Pulse Resp BP Pulse Ox 09/12/19 11:27 36.5 C 80 18 97/64 L 96 09/12/19 08:35 95 09/12/19 07:31 37.0 C 63 18 108/67 99 09/12/19 03:12 37.0 C 70 17 99/60 L 98 Laboratory Results 09/12/19 09/12/19 09/11/19 Range/Units 05:28 05:28 18:10 WBC 6.84 (4.8-10.8) K/uL RBC 3.38 L (4.7-6.1) M/uL Hgb 10.4 L (14.0-18.0) g/dL Hct 33.4 L (42-52) % MCV 98.8 (80-100) fL MCH 30.8 (25-34) pg MCHC 31.1 L (32-36) g/dL RDW Std Deviation 47.8 H (36.4-46.3) fL RDW Coeff of Kaleigh 13.8 (11.5-14.5) % Plt Count 119 L (130-400) K/uL MPV 13.5 H (7.4-10.4) fL Immature Gran % (Auto) 1.6 % Neut % (Auto) 74.2 % Lymph % (Auto) 14.8 % Coleman % (Auto) 7.3 % Eos % (Auto) 1.8 % Baso % (Auto) 0.3 % Neut # (Auto) 5.08 (1.4-6.5) K/uL Lymph # (Auto) 1.01 L (1.2-3.4) K/uL Coleman # (Auto) 0.50 (0.11-0.59) K/uL Eos # (Auto) 0.12 (0-0.5) K/uL Baso # (Auto) 0.02 (0-0.2) K/uL Immature Gran # (Auto) 0.11 H (0.00-0.02) K/uL Platelet Estimate Decreased L (Normal) Giant Platelets 1+ Sodium 146 H 149 H (136-145) mmol/L Potassium 2.9 L 3.0 L (3.5-5.1) mmol/L Chloride 113 H 117 H (98-107) mmol/L Carbon Dioxide 28 25 (21-32) mmol/L Anion Gap 5.0 7.0 (3-11) BUN 17 26 H (7-18) mg/dl Creatinine 0.98 1.11 (0.6-1.4) mg/dl Est Cr Clr Drug Dosing 67.2 59.3 ml/min Est GFR ( Amer) 92.7 79.8 Est GFR (Non-Af Amer) 80.0 68.8 BUN/Creatinine Ratio 17.8 23.3 H (10-20) Glucose 102 H 125 H (70-99) mg/dl Calcium 8.3 L 8.5 (8.5-10.1) mg/dl Phosphorus 2.1 L (2.5-4.9) mg/dl Magnesium 1.6 L (1.8-2.4) mg/dl Total Bilirubin 0.8 (0.2-1) mg/dl AST 17 (15-37) U/L ALT 24 (12-78) U/L Alkaline Phosphatase 66 (45-117) U/L Triglycerides 169 H (0-150) mg/dl Diagnostic Findings US abdomen limited HISTORY: 64 years-old Male gallbladder, acute right upper quadrant abdominal pain COMPARISON: CT abdomen and pelvis 08/14/2019 TECHNIQUE: Multiple real-time sonographic images of the abdominal right upper quadrant were obtained assessing grayscale appearance and color flow FINDINGS: The visualized pancreas is unremarkable. Common bile duct is mildly dilated at 7 mm. ill-defined area of increased echogenicity involves the medial left hepatic lobe likely corresponding with focal fat adjacent to the falciform ligament, 2.0 cm in greatest dimension. Liver is otherwise unremarkable. The gallbladder is moderately distended measuring up to 13.6 cm in length. Layering gallbladder sludge with cholelithiasis. Sonographic Live sign reported as negative. There is trace pericholecystic fluid. The gallbladder wall is normal at 2 mm. No right-sided hydronephrosis. Probable cyst of the interpolar right kidney, 9 mm. IMPRESSION: 1. Distended gallbladder with layering sludge and cholelithiasis. There is no appreciable gallbladder wall thickening and the sonographic Live sign was reported as negative. There is however mild pericholecystic fluid. Correlate clinically to exclude developing acute cholecystitis. A nuclear medicine hepatobiliary scan may also be considered. 2. Mildly dilated common bile duct, 7 mm. 3. Focal area of increased echogenicity of the anterior aspect medial left hep atic lobe is suggestive of probable focal fat.
[2019-09-12 15:40] LABS: Calcium 8.3 mg/dl (8.5-10.1); Creatinine Clr Calc Pharmacy 70.1 ml/min; Est GFR (African American) 97.5; Est GFR (Non-African American) 84.2; Magnesium 2.3 mg/dl (1.8-2.4); Phosphorus 2.2 mg/dl (2.5-4.9)
--- NOTE | 2019-09-12 15:42 | Progress Notes ---
DATE: 09/12/2019 The patient reports he is feeling a little bit better. He was seen by surgery and it was felt that he should have his gallbladder out, although the patient was somewhat hesitant about proceeding. I had a discussion with the patient today and explained that this gallbladder has been the root of his problem, especially during this admission where he was severely dehydrated. His electrolytes were abnormal and his kidney function has suffered as well and that without getting his gallbladder out, it is likely to return as soon as he left the hospital. He said he is agreeable to proceeding with cholecystectomy now and just wanted to let his know and hopefully will be willing to sign surgical consent.
[2019-09-12 15:50] LABS: Potassium 3.5 mmol/L (3.5-5.1)
[2019-09-12] MEDS: PERIPHERAL PN IV SCH (16:51)
[2019-09-12] MEDS: TPN IV SCH (16:51)
--- NOTE | 2019-09-12 19:57 | Billing Data ---
Date of Service September 12, 2019 Coding Level of Care Code 05672 Subseq Hosp Care Lvl 3
[2019-09-13 06:23] LABS: BUN Creatinine Ratio 16.8 (10-20); Calcium 8.3 mg/dl (8.5-10.1); Creatinine Clr Calc Pharmacy 82.4 ml/min; Est GFR (African American) 107.9; Est GFR (Non-African American) 93.1; Magnesium 1.8 mg/dl (1.8-2.4); Phosphorus 2.5 mg/dl (2.5-4.9); Potassium 3.5 mmol/L (3.5-5.1)
[2019-09-13] MEDS: PANTOprazole 40 MG in SYRINGE 0 ML IV SCH ×2 (08:02→20:19)
[2019-09-13] MEDS: HEPARIN SOD 5,000 UNIT/0.5 ML VIAL SQ SCH ×2 (08:03→20:19)
--- NOTE | 2019-09-13 09:48 | Hospitalist Progress Note ---
Date of Service September 13, 2019 Assessment & Plan (1) Encephalopathy acute: 64 yo M admitted for AMS and hypernatremia, due to vomiting. Acute Metabolic Encephalopathy: - Na 166 on admission, today 143; resolved. Currently on PPN as below. - Head CT not ordered on admission; subsequent head imaging showing no acute intracranial abnormalities. - WBC mildly elevated to 13 on admission, normal following. - Liver enzymes normal. - Nurse reported concern for swallowing, swallow study performed and patient vomited immediately following, made NPO. Hypovolemic Hypernatremia: - Poor oral intake over a week before admission per . - Na 166 on admission. - Clinically hypovolemic per H&P with 5.8L free water deficit on admission. - Urine sodium 33, urine Osms 622. - Patient was administered 2L NS boluses in ED and then started on normal saline at 1/2 maintenance fluid rate by admitting team - Repeat sodium level was 167; normal saline discontinued and started on IVF at 150mls/hr. - Fluids switched to D5W per Nephrology recommendations from 09/09, Na decreased appropriately to 143, then transitioned to PPN. - Continue to follow daily BMP while PPN. Dysphagia and vomiting causing severe protein calorie malnutrition and electrolyte abnormalities: - Patient has been without adequate PO intake at least since discharge from last admission, if not prior to that based on the history he gave this AM. - Possibly 2/2 PUD however prior to last discharge was started on Carafate and PPI BID without any improvement. - This admission with swallow study that shows moderately enlarged esophagus and some esophageal dysmotility. - Abdominal US showed findings suggestive of biliary dyskinesia, and patient has prior study which shows EF 4%. - Will start PPN while actively evaluating for causes of dysphagia and vomiting, pharmacy to administer. - Have consulted GI given above findings and continued inability to tolerate PO. EGD performed recently and does not believe esophagus to be cause of symptoms. - Have consulted Gen. Surgery as well for potential cholecystectomy. Last admission Dr. Foreman suggested cholecystectomy if symptoms continued. - Mg repleted this admission with MagOx 2g IV. - Phos this admission repleted with KPhos 15mmol. - K this AM 2.9, repleted with KPhos as above plus KRiders 40meq IV. - Repeat BMP tomorrow AM. PPN as above. SHAGGY, resolved: - Cr 3.74, BUN 93, ratio 24 on admission. Cr improved to 1.26 with IVF/PPN. - Suspect pre-renal given hx of poor PO intake and resolution with fluids. - Nephrology consulted, appreciate recommendations to switch to D5W and continue IV hydration until patient has good PO intake. - Trend BMP, avoid nephrotoxic meds. Elevated Troponin: - Trop 0.13 on admission, peaked at 0.15, with quick downtrend. - EKG without ST or T wave changes. - Possibly secondary to tachycardia and dehydration which have since resolved. Leukocytosis, resolved: - WBC elevated to 13 on admission, has since normalized. - BCx x2 with no growth, UCx with alpha strep, likely contaminant and without urinary symptoms. - CXR showing no acute process. - Suspect secondary to volume contraction. Elevated Bilirubin: - T bili 1.7 on admission. - Received full workup for gallbladder dysfunction last admission, had low EF 4% and continues to have nausea and vomiting despite treatment for PUD. - Recommendations included low fat diet and small meals. - Surgery consult as above given continued nausea and vomiting. Hypoalbuminemia: - Albumin level 2.6 on admission. - Likely related to protein calorie malnutrition in setting of reduced PO intake . - PPN as above. PUD: - Continue pantoprazole BID. - Continue carafate QID. HTN: - Hold amlodipine given NPO. Normotensive at this time. - Hold losartan in setting of SHAGGY . DVT ppx: Heparin BID FEN/GI: Clear liquid diet Dispo: PCU Code Status: Full Code (2) Hypertension: (3) SHAGGY (acute kidney injury): (4) Elevated troponin: (5) Elevated WBC count: Admission and Anticipated Discharge Date Admission Date: September 09, 2019 Supervising Physician Co-Signing Physician Notes I personally examined the patient and verified all squires points of history and exam, discussed case, and agree with decision making with Dr Link. thinking about GB surgery but hasn't talked w yet. vitals noted nad heent nc at mmm breathing unlabored. skin no rashes no pallor or icterus. neuro no focal deficits. A/P: 1. hypernatremia -from poor PO intake, water deficit. improved. continue support. 2. severe protein calorie malnutrition - continue IV nutrition. depending on when/how he does after GB surgery then may need to switch to TPN if IV needs to be prolonged. continue cautious liquid diet (since he appears to have tolerated that well before) and follow closely 3. 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 treat all of underlying causes (for now follow achalasia w easy to swallow diet and hopefully w correction of 'lytes and malnutrition this will improve, if not can consider med management) 4. metabolic encephalopathy - related to above. fortunately overall now stable. Subjective Patient without acute events overnight. Nursing reports that he tolerates water well but will sometimes appear to "choke" on other foods. Denies fevers or chills, denies abdominal pain. States again that his nausea and vomiting happens very shortly following eating, especially with fattier foods. Was unable to discuss cholecystectomy with his yesterday. States that "if the GI doctors think my gallbladder is doing it then I want it out". Review of Systems Constitutional: no fever, no chills and no malaise Respiratory: no cough and no dyspnea Cardiovascular: no chest pain, no palpitations and no edema Gastrointestinal: + vomiting; no abdominal pain, no constipation and no diarrhea/loose stools Physical Exam Constitutional: WD/WN, vitals as above not ill appearing Gastrointestinal (Abdomen): Inspection/Auscultation: abdomen normal to inspection; abdomen not distended Percussion/Palpation: abdomen soft; abdomen nontender, no guarding and abdomen not rigid Skin: no rashes, warm and dry Psychiatric: Orientation: alert and oriented x 3 Results & Data Results & Data ([facility]) Vital Signs (Past 12 Hours) Vital Signs Temp Pulse Pulse Resp BP Pulse Ox 09/13/19 07:57 37.5 C 76 18 114/72 94 09/13/19 03:43 36.3 C L 76 19 109/63 96 09/13/19 00:41 67 09/12/19 23:08 37 C 72 17 108/69 98 Resident Activity Tracking Resident Involvement: Resident Care Provided Care Provided: Adult [facility]
[2019-09-13] MEDS: SUCRALFATE 1 GM/10 ML UDC PO SCH ×4 (10:15→20:19)
--- NOTE | 2019-09-13 14:19 | Pharmacy Report ---
PHA: Parenteral Nutrition Con - Date of Service September 13, 2019 - Scope Pharmacy was consulted on 09/12/19 to manage parenteral nutrition orders for this patient. - Subjective The patient is currently on day 2 of peripheral parenteral nutrition for inadequate PO intake secondary to dysphagia and vomiting. - Objective Height: 5 ft 8 in Weight: 64 kg Intake & Output (24hrs):: Intake & Output 09/11/19 09/12/19 09/13/19 09/14/19 06:59 06:59 06:59 06:59 Intake Total 1398.75 / 1398.75 2575 / 2575 2435.833 / 2435.833 Output Total 1500 / 1500 1050 / 1050 3051 / 3051 Balance -101.25 / -101.25 1525 / 1525 -615.167 / -615.167 Weight 64 kg 64.1 kg 64 kg Laboratory Data (Last 24 Hr):: 09/12/19 09/13/19 14:50 05:51 Sodium 142 143 Potassium 3.5 D 3.5 Chloride 111 H 109 H Carbon Dioxide 25 29 BUN 14 13 Creatinine 0.94 0.80 Glucose 103 H 98 Calcium 8.3 L 8.3 L Phosphorus 2.2 L 2.5 Magnesium 2.3 1.8 Triglycerides 207 H Nutrition Assessment:: Please refer to the Notes section of the EMR for the most recent political advisor note. - Assessment * Electrolytes much improved today - with electrolyte repletion and PPN initiated yesterday * Triglycerides elevated today at 207 mg/dL - will hold lipids today and reasse ss tomorrow * Patient agreeable to cholecystectomy - not currently scheduled - Plan For day 2 of PN administration, the following will be ordered: Macronutrients Amino acids 100 grams/day Dextrose 150 grams/day Micronutrients Potassium phosphate 30 mMol Potassium acetate 45 mEq Magnesium sulfate 8.12 mEq Calcium gluconate 4.65 mEq Multivitamins 10 mL Trace Elements 1 mL Additional additives: thiamine 100 mg, folic acid 1 mg Total volume 2500 mL to be infused over 24 hrs will provide 910 kcal/day Final osmolarity 722 mOsm/L (maximum for PPN is 900 mOsm/L) Labs, as indicated, will be ordered per protocol Pharmacy will continue to follow and adjust parenteral nutrition orders on a daily basis. Thank you for allowing us to participate in the care of this patient.
--- NOTE | 2019-09-13 15:59 | Surgery Progress Note ---
Date of Service pt is doing better, no nausea, no vomiting, U/S cholelithiasis, HIDA scan - gallbladder EF 4%, September 13, 2019 Assessment & Plan (1) Dysfunctional gallbladder: pt was admitted to hospital for nausea and vomiting, HIDA scan EF 4% (workup during prior admission) DDx: Biliary dyskinesia, esophageal dysmotility no leukocytosis resolution of patients abdominal pain no n/v today afebrile US showing distended gallbladder with sludge and stones however no wall thickening, negative emmanuel's sign. Mild pericholecystic fluid. Plan: No acute surgical plans for laparoscopic cholecystectomy as patient is not having any pain, no leukocytosis, fever, or signs of micha acute cholecystitis on ultrasound. Asymptomatic today. Discussed with patient he likely needs further GI work-up given esophageal dilatation. Can follow-up in surgical office as an outpatient to discuss elective cholecystectomy. Okay from surgery standpoint for liquids if cleared by speech therapy Peripheral PPN starting today Continue medical management surgery signing off, please call with questions or concerns Dr. Patel has seen patient and present during my examination, agrees with above. 09/13/2019 3:56PM base on U/S and HIDA scan finding, IMP: dysfunction gallbladder with cholelithiasis, plan, I recommend to do laparoscopic cholecystectomy, possible open or cholangiogram, D/W benefits, risks and alternatives of surgery, pt will talk to his , they will left me know once they make a decision. Supervising Physician Co-Signing Physician Notes I personally examined the patient and verified all squires points of history and exam, discussed case, and agree with decision making with Dr Link. feeling better. would like to try to eat something. describes diet at home - mostly soft and easy goes down vitals noted nad heent nc at mmm breathing unlabored. abd soft nd nt no guarding no rebound. A/P: 1. hypernatremia -from poor PO intake, water deficit. improved. continue to follow 2. severe protein calorie malnutrition - IV nutrition. cautious liquid diet (since he appears to have tolerated that well before) and follow closely 3. 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 treat all of underlying causes (for now follow achalasia w easy to swallow diet and hopefull w correction of 'lytes and malnutrition this will improve, if not can consider med management) 4. metabolic encephalopathy - related to above. fortunately more stable today Subjective Patient without acute events overnight. Nursing reports that he tolerates water well but will sometimes appear to "choke" on other foods. Denies fevers or chills, denies abdominal pain. States again that his nausea and vomiting happens very shortly following eating, especially with fattier foods. Was unable to discuss cholecystectomy with his yesterday. States that "if the GI doctors think my gallbladder is doing it then I want it out". Review of Systems Constitutional: as per Subjective / HPI Eyes: as per Subjective / HPI Ear, Nose, Mouth, Throat: as per Subjective / HPI Respiratory: as per Subjective / HPI Cardiovascular: as per Subjective / HPI Gastrointestinal: as per Subjective / HPI Genitourinary: + problem reported (SHAGGY) Musculoskeletal: as per Subjective / HPI Integumentary: as per Subjective / HPI Neurologic: as per Subjective / HPI Psychiatric: as per Subjective / HPI Endocrine: as per Subjective / HPI Hematologic / Lymphatic: as per Subjective / HPI Physical Exam Constitutional: WD/WN, vitals as above well developed and + ill appearing Eyes: PERRL, conjunctivae normal, anicteric sclerae ENMT: external ear and nose normal, oropharynx normal Neck: trachea midline, no thyromegaly Respiratory: normal respiratory effort, lungs clear to auscultation Cardiovascular: RRR, no murmur, no edema Rate/Rhythm: regular rate and regular rhythm Gastrointestinal (Abdomen): normal bowel sounds, soft, nontender, no hepatosplenomegaly soft, NT, ND, BS + Musculoskeletal: no cyanosis or clubbing, extremities motor strength 5/5 Skin: no rashes, warm and dry Neurologic: patellar DTR's 2+ bilat, sensation intact Psychiatric: Orientation: alert and oriented x 3 Results & Data Vital Signs (Past 12 Hours) Vital Signs Temp Pulse Resp BP Pulse Ox 09/13/19 15:36 37.1 C 78 20 107/68 95 09/13/19 11:50 37.2 C 76 18 112/70 95 09/13/19 07:57 37.5 C 76 18 114/72 94
[2019-09-13] MEDS ORDERED: TPN IV SCH (16:00)
[2019-09-13] MEDS ORDERED: PERIPHERAL PN IV SCH (16:00)
[2019-09-13] MEDS: PERIPHERAL PN IV SCH (18:22)
[2019-09-13] MEDS: TPN IV SCH (18:22)
--- NOTE | 2019-09-13 18:26 | Billing Data ---
Date of Service September 13, 2019 Coding Level of Care Code 83349 Subseq Hosp Care Lvl 3
[2019-09-14 07:00] LABS: BUN Creatinine Ratio 19.6 (10-20); Calcium 8.9 mg/dl (8.5-10.1); Creatinine Clr Calc Pharmacy 77.5 ml/min; Est GFR (African American) 105.2; Est GFR (Non-African American) 90.8; Magnesium 1.8 mg/dl (1.8-2.4); Phosphorus 3.1 mg/dl (2.5-4.9); Potassium 4.4 mmol/L (3.5-5.1)
[2019-09-14] MEDS: SUCRALFATE 1 GM/10 ML UDC PO SCH ×4 (07:37→22:08)
[2019-09-14] MEDS: HEPARIN SOD 5,000 UNIT/0.5 ML VIAL SQ SCH (09:24)
[2019-09-14] MEDS: PANTOprazole 40 MG in SYRINGE 0 ML IV SCH ×2 (09:24→22:08)
--- NOTE | 2019-09-14 10:38 | Hospitalist Progress Note ---
Date of Service September 14, 2019 Assessment & Plan (1) Encephalopathy acute: 64 yo M admitted for AMS and hypernatremia, due to vomiting. Acute Metabolic Encephalopathy: - Na 166 on admission, today 143; resolved. Currently on PPN as below. - Head CT not ordered on admission; subsequent head imaging showing no acute intracranial abnormalities. - WBC mildly elevated to 13 on admission, normal following. - Liver enzymes normal. Hypovolemic Hypernatremia: - Poor oral intake over a week before admission per . - Na 166 on admission. - Clinically hypovolemic per H&P with 5.8L free water deficit on admission. - Urine sodium 33, urine Osms 622. - Patient was administered 2L NS boluses in ED and then started on normal saline at 1/2 maintenance fluid rate by admitting team - Repeat sodium level was 167; normal saline discontinued and started on IVF at 150mls/hr. - Fluids switched to D5W per Nephrology recommendations from 09/09, Na decreased appropriately to 143, then transitioned to PPN. - Na today 141. - Continue to follow daily BMP while giving PPN. Dysphagia and vomiting causing severe protein calorie malnutrition and electrolyte abnormalities: - Patient has been without adequate PO intake at least since discharge from last admission, if not prior to that based on the history he gave this AM. - Possibly 2/2 PUD however prior to last discharge was started on Carafate and PPI BID without any improvement. - This admission with swallow study that shows moderately enlarged esophagus and some esophageal dysmotility. - Abdominal US showed findings suggestive of biliary dyskinesia, and patient has prior study which shows EF 4%. - Will start PPN while actively evaluating for causes of dysphagia and vomiting, pharmacy to administer. - Have consulted GI given above findings and continued inability to tolerate PO. EGD performed recently and does not believe esophagus to be cause of symptoms. - Have consulted Gen. Surgery as well for potential cholecystectomy. Last admission Dr. Foreman suggested cholecystectomy if symptoms continued. - General Surgery at this time recommends cholecystectomy. Patient will discuss with and then make decision regarding surgery. - Mg repleted this admission with MagOx 2g IV. - Phos this admission repleted with KPhos 15mmol. - K this admission 2.9, repleted with KPhos as above plus KRiders 40meq IV. Today 4.4. - Repeat BMP tomorrow AM. PPN as above. SHAGGY, resolved: - Cr 3.74, BUN 93, ratio 24 on admission. Cr improved to 1.26 with IVF/PPN. - Suspect pre-renal given hx of poor PO intake and resolution with fluids. - Nephrology consulted, appreciate recommendations to switch to D5W and continue IV hydration until patient has good PO intake. - Trend BMP, avoid nephrotoxic meds. Elevated Troponin: - Trop 0.13 on admission, peaked at 0.15, with quick downtrend. - EKG without ST or T wave changes. - Possibly secondary to tachycardia and dehydration which have since resolved. Leukocytosis, resolved: - WBC elevated to 13 on admission, has since normalized. - BCx x2 with no growth, UCx with alpha strep, likely contaminant and without urinary symptoms. - CXR showing no acute process. - Suspect secondary to volume contraction. Elevated Bilirubin: - T bili 1.7 on admission. - Received full workup for gallbladder dysfunction last admission, had low EF 4% and continues to have nausea and vomiting despite treatment for PUD. - Recommendations included low fat diet and small meals. - Surgery consult as above given continued nausea and vomiting. Hypoalbuminemia: - Albumin level 2.6 on admission. - Likely related to protein calorie malnutrition in setting of reduced PO intake . - PPN as above. PUD: - Continue pantoprazole BID. - Continue carafate QID. HTN: - Hold amlodipine given NPO. Normotensive at this time. - Hold losartan in setting of SHAGGY . DVT ppx: Heparin BID FEN/GI: Clear liquid diet Dispo: PCU Code Status: Full Code (2) Hypertension: (3) SHAGGY (acute kidney injury): (4) Elevated troponin: (5) Elevated WBC count: Admission and Anticipated Discharge Date Admission Date: September 09, 2019 Supervising Physician Co-Signing Physician Notes I personally examined the patient and verified all squires points of history and exam, discussed case, and agree with decision making with Dr Link. when i first enter the room he notes he hadn't talked w about surgery yet. as we started to discuss enters, notes they talked about it this AM but he hadn't decided yet. no new sx. extensive discussions about choley as well as PICC for TPN instead of PPN vitals noted nad heent nc at mmm breathing unlabored. skin no rashes no pallor or icterus. neuro no focal deficits. A/P: 1. hypernatremia -from poor PO intake, water deficit. improved. continue support. continue to follow labs 2. severe protein calorie malnutrition - continue IV nutrition. given duration / severity of malnutrition - PICC so as to escalate IV nutrition to full TPN given it's unlikely he'll immediately increase to meeting nutritional needs after chley. continue to follow lytes, follow for refeeding. 3. 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 treat all of underlying causes (for now follow achalasia w easy to swallow diet and hopefully w correction of 'lytes and malnutrition this will improve, if not can consider med management) -- hopefully will see considerable improvement post choley 4. metabolic encephalopathy - related to above. fortunately overall now stable, although clearly still present and does seem to interfere some with his ability to make decisions - fortunately is reliable and able to help. Subjective Patient without acute events overnight. Spoke with patient's this morning regarding potential for surgery and she will talk with her this afternoon about it. Patient denies any abdominal pain, nausea, vomiting. If he eats or drinks too fast he will vomit, so he takes very small sips frequently. No chest pain or SOB, fevers or chills. Review of Systems Review of Systems: All systems reviewed & are unremarkable except as noted in Subjective Physical Exam Constitutional: WD/WN, vitals as above Respiratory: normal respiratory effort, lungs clear to auscultation Cardiovascular: RRR, no murmur, no edema Gastrointestinal (Abdomen): Inspection/Auscultation: abdomen normal to inspection; abdomen not distended Percussion/Palpation: abdomen soft; abdomen nontender, no guarding and abdomen not rigid Skin: no rashes, warm and dry Psychiatric: Orientation: alert and oriented x 3 Results & Data Results & Data ([facility]) Vital Signs (Past 12 Hours) Vital Signs Temp Pulse Pulse Resp BP Pulse Ox 09/14/19 09:51 81 09/14/19 07:44 37.0 C 87 17 107/71 96 09/14/19 03:42 37.2 C 75 16 108/67 95 09/13/19 23:31 36.6 C 82 16 99/63 L 97 Resident Activity Tracking Resident Involvement: Resident Care Provided Care Provided: Adult [facility] Medicine
--- NOTE | 2019-09-14 15:06 | Surgery Progress Note ---
Date of Service September 14, 2019 Assessment & Plan (1) Dysfunctional gallbladder: pt was admitted to hospital for nausea and vomiting, HIDA scan EF 4% (workup during prior admission) DDx: Biliary dyskinesia, esophageal dysmotility no leukocytosis resolution of patients abdominal pain no n/v today afebrile US showing distended gallbladder with sludge and stones however no wall thickening, negative emmanuel's sign. Mild pericholecystic fluid. Plan: Patient is unsure what he wants to do in regards to cholecystectomy. Has not spoken with his regarding cholecystectomy definitively today. States he is unsure if he wants anything done at all. I discussed the surgery including laparoscopic and open approach, recovery, restrictions with patient so that he was informed of the surgery to make a decision. I also discussed with patient that we could do surgery tomorrow with Dr. Patel if he wanted to do it while inpatient or would have to be done as an outpatient as we are approaching the weekend and there is limited OR staff available and usually only emergent cases are done on weekends. He has no signs of acute cholecystitis, no leukocytosis or pain so he could be deferred for outpatient colonoscopy He is to call and decide about doing the surgery tomorrow If surgery tomorrow will need to be NPO after midnight and to hold Heparin. Will await patient's decision. 09/14/2019 7:58PM, pt and his want to do cholecystectomy, I recommend to do laparoscopic cholecystectomy, possible open or cholangiogram, D/W benefits, risks and alternatives of the surgery, the risks - infection, bleeding, injury CBD, CO, pt and his understood, they agree with the surgery, I answered all questions, npo after MN Subjective denies of abdominal pain, nausea or vomiting states he is tolerating liquids better states his was in earlier today but did not discuss undergoing cholecystectomy with her or not. He is unsure what he wants to do. Said he needs to talk to his more before making a decision. Physical Exam Constitutional: WD/WN, vitals as above no acute distress and not ill appearing Eyes: PERRL, conjunctivae normal, anicteric sclerae Respiratory: normal respiratory effort; no respiratory distress Gastrointestinal (Abdomen): Inspection/Auscultation: abdomen normal to inspection and + abdominal surgical scar (midline laparotomy scar); abdomen not distended Percussion/Palpation: abdomen soft; abdomen nontender, no guarding and abdomen not rigid Skin: no rashes, warm and dry Psychiatric: Orientation: alert Results & Data Vital Signs (Past 12 Hours) Vital Signs Temp Pulse Pulse Resp BP Pulse Ox 09/14/19 11:53 37.5 C 86 19 120/68 96 09/14/19 09:51 81 09/14/19 07:44 37.0 C 87 17 107/71 96 09/14/19 03:42 37.2 C 75 16 108/67 95 Laboratory Results 09/14/19 09/14/19 09/14/19 Range/Units 11:25 07:29 06:02 Sodium (136-145) mmol/L Potassium (3.5-5.1) mmol/L Chloride (98-107) mmol/L Carbon Dioxide (21-32) mmol/L Anion Gap (3-11) BUN (7-18) mg/dl Creatinine (0.6-1.4) mg/dl Est Cr Clr Drug Dosing ml/min Est GFR ( Amer) Est GFR (Non-Af Amer) BUN/Creatinine Ratio (10-20) Glucose (70-99) mg/dl POC Glucose 104 H 93 102 H (70-99) mg/dl Calcium (8.5-10.1) mg/dl Phosphorus (2.5-4.9) mg/dl Magnesium (1.8-2.4) mg/dl Triglycerides (0-150) mg/dl 09/14/19 09/13/19 09/13/19 Range/Units 05:58 23:51 20:37 Sodium 141 (136-145) mmol/L Potassium 4.4 D (3.5-5.1) mmol/L Chloride 106 (98-107) mmol/L Carbon Dioxide 31 (21-32) mmol/L Anion Gap 4.0 (3-11) BUN 17 (7-18) mg/dl Creatinine 0.85 (0.6-1.4) mg/dl Est Cr Clr Drug Dosing 77.5 ml/min Est GFR ( Amer) 105.2 Est GFR (Non-Af Amer) 90.8 BUN/Creatinine Ratio 19.6 (10-20) Glucose 97 (70-99) mg/dl POC Glucose 107 H 110 H (70-99) mg/dl Calcium 8.9 (8.5-10.1) mg/dl Phosphorus 3.1 (2.5-4.9) mg/dl Magnesium 1.8 (1.8-2.4) mg/dl Triglycerides 212 H (0-150) mg/dl 09/13/19 Range/Units 16:14 Sodium (136-145) mmol/L Potassium (3.5-5.1) mmol/L Chloride (98-107) mmol/L Carbon Dioxide (21-32) mmol/L Anion Gap (3-11) BUN (7-18) mg/dl Creatinine (0.6-1.4) mg/dl Est Cr Clr Drug Dosing ml/min Est GFR ( Amer) Est GFR (Non-Af Amer) BUN/Creatinine Ratio (10-20) Glucose (70-99) mg/dl POC Glucose 97 (70-99) mg/dl Calcium (8.5-10.1) mg/dl Phosphorus (2.5-4.9) mg/dl Magnesium (1.8-2.4) mg/dl Triglycerides (0-150) mg/dl
[2019-09-14] MEDS ORDERED: Custom Peripheral Pn 2,400 ML in TPN BAG 0 ML IV SCH (16:00)
--- NOTE | 2019-09-14 19:14 | Billing Data ---
Date of Service September 14, 2019 Coding Level of Care Code 33491 Subseq Hosp Care Lvl 3
[2019-09-15] MEDS ORDERED: MIDAZOLAM HCL 1 MG/ML 2ML VIAL ONE (07:08)
[2019-09-15] MEDS ORDERED: LIDOCAINE HCL 2% 2 ML VIAL/AMP(20MG/ML) INFIL ONE (07:08)
[2019-09-15] MEDS ORDERED: PROPOFOL IV EMULSION 10 MG/ML 20 ML VIAL IV ONE (07:08)
[2019-09-15] MEDS ORDERED: fentaNYL citrate 100 MCG/2 ML VIAL ONE ×2 (07:08→09:54)
[2019-09-15] MEDS ORDERED: ROCURONIUM BROMIDE 10 MG/ML 5 ML VIAL IV ONE (07:08)
[2019-09-15] MEDS ORDERED: ONDANSETRON INJ 2 MG/ML 2 ML VIAL ONE (07:08)
[2019-09-15] MEDS ORDERED: DEXAMETHASONE SOD INJ 4 MG/ML VIAL ONE (07:08)
--- NOTE | 2019-09-15 07:15 | XRay Report ---
XR chest 1V portable CLINICAL HISTORY: PICC line placement line position COMPARISON STUDY: 09/10/2019 FINDINGS: PICC catheter placed in the superior vena cava. No evidence of pneumothorax. Lungs remain c lear. IMPRESSION: PICC catheter placed in the superior vena cava. No evidence for pneumothorax. ACT 112: Negative or not required by law. The above report was generated using voice recognition software. It may contain grammatical, syntax or spelling errors. Electronically signed by: Jaylan Metzger M.D. 09/15/2019 7:14 AM
[2019-09-15 07:31] LABS: BUN Creatinine Ratio 26.7 (10-20); Calcium 8.7 mg/dl (8.5-10.1); Creatinine Clr Calc Pharmacy 86.8 ml/min; Est GFR (African American) 109.6; Est GFR (Non-African American) 94.6; Potassium 3.8 mmol/L (3.5-5.1)
[2019-09-15 07:33] LABS: Phosphorus 3.9 mg/dl (2.5-4.9)
[2019-09-15] MEDS ORDERED: BUPIVACAINE 0.5 % 5 MG/1 ML MPF 30ML VIAL ONE (07:37)
[2019-09-15] MEDS ORDERED: LIDOCAINE HCL 1% 20 ML VIAL ONE (07:37)
[2019-09-15] MEDS ORDERED: BACITRACIN OINT 15 GM TUBE ONE (07:37)
[2019-09-15] MEDS ORDERED: CEFAZOLIN 2,000 MG/15 ML IV PUSH IV ONE (07:51)
--- NOTE | 2019-09-15 07:51 | History & Physical Bridge Note ---
Date of Service September 15, 2019 History & Physical Bridge Note I have examined the patient, reviewed the History & Physical and in the interval since the performance of the History & Physical I have noted the following changes of clinical significance: no changes noted Supervising Physician Co-Signing Physician Notes I personally examined the patient and verified all squires points of history and exam, discussed case, and agree with decision making with Dr Link. when i first enter the room he notes he hadn't talked w about surgery yet. as we started to discuss enters, notes they talked about it this AM but he hadn't decided yet. no new sx. extensive discussions about choley as well as PICC for TPN instead of PPN vitals noted nad heent nc at mmm breathing unlabored. skin no rashes no pallor or icterus. neuro no focal deficits. A/P: 1. hypernatremia -from poor PO intake, water deficit. improved. continue support. continue to follow labs 2. severe protein calorie malnutrition - continue IV nutrition. given duration / severity of malnutrition - PICC so as to escalate IV nutrition to full TPN given it's unlikely he'll immediately increase to meeting nutritional needs after chley. continue to follow lytes, follow for refeeding. 3. 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 treat all of underlying causes (for now follow achalasia w easy to swallow diet and hopefully w correction of 'lytes and malnutrition this will improve, if not can consider med management) -- hopefully will see considerable improvement post choley 4. metabolic encephalopathy - related to above. fortunately overall now stable, although clearly still present and does seem to interfere some with his ability to make decisions - fortunately is reliable and able to help.
[2019-09-15] MEDS ORDERED: CEFAZOLIN 2000MG 2,000 MG/15 ML SYR IV ONE (07:52)
[2019-09-15] MEDS ORDERED: ATROPINE SULFATE 0.1 MG/ML 10ML SYR IV PRN (07:54)
[2019-09-15] MEDS ORDERED: fentaNYL citrate 100 MCG/2 ML VIAL IV PRN (07:54)
[2019-09-15] MEDS ORDERED: ePHEDrine sulfate 50 MG/ML AMP IV PRN (07:54)
[2019-09-15] MEDS ORDERED: ONDANSETRON INJ 2 MG/ML 2 ML VIAL IV PRN (07:54)
--- NOTE | 2019-09-15 07:54 | Anesthesiology Consultation ---
Date of Service September 15, 2019 Assessment & Plan (1) Encounter for pre-operative examination: Chart Review Chart Review: Acceptable Risk for Surgery Consults Requested none ASA ASA3 Proposed Anesthesia Anesthesia Type: General Risk / Benefits Reviewed With: PT / POA / Parent / Guardian, Accepts Plan and Informed Consent Obtained History Surgery Operation Date: 09/15/19 14:15 Proposed Procedures p Laparoscopic Cholecystectomy - Arvin Patel MD Height/Weight Height: 5 ft 8 in Weight: 65 kg Allergies Allergy/AdvReac Type Severity Reaction Status Date / Time bee venom protein (honey bee) Allergy Severe ANAPHYLACTIC Verified 09/09/19 02:21 REACTION A CHILD Medications Home Medications Medication Instructions Recorded Confirmed Last Taken amlodipine 10 mg PO DAILY 08/14/19 09/09/19 Unknown epinephrine [EpiPen] 0.3 mg IM DIRECTED PRN 08/14/19 09/09/19 Unknown losartan 100 mg PO DAILY 08/14/19 09/09/19 Unknown methocarbamol 750 mg PO BID PRN #0 tab 08/28/19 09/09/19 Unknown pantoprazole 40 mg PO BID 30 Days #60 tab 08/28/19 09/09/19 Unknown potassium chloride 20 meq PO DAILY #1200 ml 08/28/19 09/09/19 Unknown Active Medications Generic Name Dose Route Start Last Admin Trade Name Dimas PRN Reason Stop Dose Admin Amlodipine Besylate 10 mg 09/09/19 09:00 09/11/19 08:25 Norvasc PO 10/09/19 08:59 10 mg DAILY GRADY Administration Aspirin 81 mg 09/09/19 10:00 09/11/19 08:25 Ecotrin Ectab PO 10/09/19 09:59 81 mg QAM GRADY Administration Pantoprazole Sodium 40 mg/ 10 mls @ 5 mls/min 09/09/19 09:00 09/14/19 22:08 Syringe IV 10/09/19 08:59 5 mls/min BID GRADY Administration Folic Acid 1 mg/ Syringe 10 mls @ 5 mls/min 09/09/19 09:00 09/12/19 08:33 IV 10/09/19 08:59 5 mls/min QAM GRADY Administration Thiamine HCl 100 mg/ Syringe 10 mls @ 2 mls/min 09/09/19 10:00 09/12/19 08:34 IV 10/09/19 09:59 2 mls/min QAM GRADY Administration Nutrition (Parenteral) 2,400 2,400 mls @ 100 mls/hr 09/14/19 16:00 09/14/19 15:55 ml/ TPN BAG IV 09/15/19 15:59 100 mls/hr .Q24H GRADY Administration Protocol Sucralfate 1 gm 09/09/19 09:00 09/14/19 22:08 Carafate PO 10/09/19 08:59 1 gm ACHS GRADY Administration NPO Date Last Intake of Fluids: 09/14/19 Last Intake of Fluids Comment: Pt unsure how long ago- definitely none since midnight Date Last Intake of Solids: 09/14/19 Last Intake of Solids Comment: Pt doesnt remember how long ago Past Medical History Medical History SHAGGY (acute kidney injury) Chronic back pain Electrolyte abnormality Clinically consistent with dehydration, NSAID use, uric acid nephropathy, and ATN. Tolerating IVF well. Creatinine continues to improve. Uremia also improving with management. Free water deficit persist (~4.5 L). Unable to tolerate medications or fluids by mouth. IVF switched to 1/4 NaCl + 20 KCl @ 200 ml/h yesterday evening. Urine appropriately alkaline. Noted UA crystals in urine yesterday AM. Serum UA level improving. Hypokalemia and hypophosphatemia noted. magnesium falling. K phos x 30 mmol IV ordered. Will continue to monitor labs twice daily and replace as needed. No adjustment to IVF infusion at this time. Hematemesis Hypertension Thrombocytopenia Vomiting Exercise / Class Metabolic Activity II 4-5 Yardwork/Stairs/Walk up hill Past Surgical History Surgical History H/O right hemicolectomy Past Anesthesia History No Hx of Anesthesia Complications and No Family Hx of Anesthesia Complications History of PONV No Hx of PONV and No Hx of Motion Sickness Social History Smoking Status: Former smoker Do You Dip or Chew Tobacco: No Smoking End Date: 2018 Hx Alcohol Use: No Hx Substance Use: No Physical Exam Vital Signs Last Vital Signs Temp 98.6 F 09/15/19 07:38 Pulse 83 09/15/19 07:38 Resp 20 09/15/19 07:38 BP 117/65 07/10/20 07:38 Pulse Ox 97 09/15/19 07:38 ENMT Mouth: no dentition abnormality Thyromental Distance: > or= 3.5 Finger Breadths Mallampati Class: II Neck normal visual inspection Respiratory normal respiratory effort Auscultation: lungs clear to auscultation bilaterally Cardiovascular Rate/Rhythm: regular rate and regular rhythm Testing Laboratory Results 09/12/19 05:28 09/15/19 06:37 Urine Color Dark Yellow 09/09/19 07:40 Urine Appearance Cloudy (Clear) A 09/09/19 07:40 Urine pH 5.0 (4.5-7.5) 09/09/19 07:40 Ur Specific [place] 1.022 (1.000-1.030) 09/09/19 07:40 Urine Protein 1+ (Negative) H 09/09/19 07:40 Urine Glucose (UA) Negative (Negative) 09/09/19 07:40 Urine Ketones Trace (Negative) H 09/09/19 07:40 Urine Nitrite Negative (Negative) 09/09/19 07:40 Ur Leukocyte Esterase Negative (Negative) 09/09/19 07:40 Urine WBC (Auto) 1-5 /hpf (0-5) 09/09/19 07:40 Urine RBC (Auto) 0-4 /hpf (0-4) 09/09/19 07:40 U Hyaline Cast (Auto) 1-5 /lpf (0-5) 09/09/19 07:40 U Epithel Cells (Auto) 10-20 /lpf (0-5) H 09/09/19 07:40 Urine Bacteria (Auto) 2+ (Negative) H 09/09/19 07:40 09/09/19 03:46 Aerobic Blood Culture - Final Blood No growth in Aerobic bottle after 5 days. Anaerobic Blood Culture - Final No growth in Anaerobic bottle after 5 days. 09/09/19 02:20 Aerobic Blood Culture - Final Blood No growth in Aerobic bottle after 5 days. Anaerobic Blood Culture - Final No growth in Anaerobic bottle after 5 days. 09/09/19 07:40 Urine Culture - Final Urine,Indwelling Cath Alpha strep. not enterococcus 09/15/19 09/15/19 09/14/19 05:56 00:09 21:58 POC Glucose 103 H 106 H 108 H Electrocardiogram Date: 09/09/19 Sinus tachycardia, rate 121 bpm Possible Left atrial enlargement Septal infarct (cited on or before 26-JAN-2000) Abnormal ECG When compared with ECG of 14-AUG-2019 21:07, Questionable change in initial forces of Septal leads Nonspecific T wave abnormality, worse in Anterolateral leads Confirmed by Nikolay Salinas ([id number]) on 09/09/2019 2:33:24 PM Chest X-Ray Date: 09/14/19 IMPRESSION: PICC catheter placed in the superior vena cava. No evidence for pneumothorax.
--- NOTE | 2019-09-15 07:55 | Hospitalist Progress Note ---
Date of Service September 15, 2019 Assessment & Plan (1) Encephalopathy acute: 64 yo M admitted for AMS and hypernatremia due to vomiting, now POD #0 s/p laparoscopic cholecystectomy. Dysphagia and vomiting causing severe protein calorie malnutrition and electrolyte abnormalities: - Patient has been without adequate PO intake at least since discharge from last admission, if not prior to that based on the history he gave this admission. - Possibly 2/2 PUD however prior to last discharge was started on Carafate and PPI BID without any improvement. - Swallow study that shows moderately enlarged esophagus and some esophageal dysmotility. - Abdominal US showed findings suggestive of biliary dyskinesia, and patient has prior study which shows EF 4%. - Started PPN while actively evaluating for causes of dysphagia and vomiting, pharmacy to administer. - Consulted GI given above findings and continued inability to tolerate PO. EGD performed recently and does not believe esophagus to be cause of symptoms. - Consulted Gen. Surgery as well for potential cholecystectomy. Last admission Dr. Foreman suggested cholecystectomy if symptoms continued. - General Surgery performed laparoscopic cholecystectomy this AM. - Findings suggestive of chronic cholecystitis (omental adhesion, significant gallbladder distention), as well as several small stones, were noted during surgery. Hypovolemic Hypernatremia: - Poor oral intake over a week before admission per . - Na 166 and clinically hypovolemic per H&P with 5.8L free water deficit on admission. Urine sodium 33, urine Osms 622. - Patient was administered 2L NS boluses in ED and then started on normal saline at 1/2 maintenance fluid rate by admitting team - Repeat sodium level was 167; normal saline discontinued and started on IVF at 150mls/hr. - Fluids switched to D5W per Nephrology recommendations from 09/09, Na decreased appropriately to 143, then transitioned to PPN. - Na today 138. - Mg repleted this admission with MagOx 2g IV. - Phos this admission repleted with KPhos 15mmol. - K this admission 2.9, repleted with KPhos as above plus KRiders 40meq IV. Today 3.8. - Repeat BMP daily while on PPN. Acute Metabolic Encephalopathy vs. delirium: - Resolved. - Na 166 on admission, today 138. Currently on PPN as below with advance oral diet as tolerated. Suspect can d/c PPN tomorrow if tolerates oral intake overnight and in the AM. - Head CT not ordered on admission; subsequent head imaging showing no acute intracranial abnormalities. - WBC mildly elevated to 13 on admission, normal immediately following. - Liver enzymes normal. - Patient has been in hospital for several days at this point and sometimes waxes and wanes with level of alertness, though this is much improved since resolution of hypernatremia as above. - Suspect some element of delirium due to malnutrition, new environment, poor sleep in hospital. SHAGGY, resolved: - Cr 3.74, BUN 93, ratio 24 on admission. Cr improved to 1.26 with IVF/PPN. - Suspect pre-renal given hx of poor PO intake and resolution with fluids. - Improved with D5W, then further with PPN; Cr now 0.77. - Trend BMP as above ue to PPN, avoid nephrotoxic meds. Elevated Troponin: - Trop 0.13 on admission, peaked at 0.15, with quick downtrend. - EKG without ST or T wave changes. - Possibly secondary to tachycardia and dehydration which have since resolved. Leukocytosis, resolved: - WBC elevated to 13 on admission, has since normalized. - BCx x2 with no growth, UCx with alpha strep, likely contaminant and without urinary symptoms. - CXR showing no acute process. - Suspect secondary to volume contraction. Elevated Bilirubin: - T bili 1.7 on admission. - Received full workup for gallbladder dysfunction last admission, had low EF 4% and continues to have nausea and vomiting despite treatment for PUD. - Recommendations included low fat diet and small meals. - Surgery consult as above given continued nausea and vomiting. Hypoalbuminemia: - Albumin level 2.6 on admission. - Likely related to protein calorie malnutrition in setting of reduced PO intake . - PPN as above. PUD: - Continue pantoprazole BID. - Continue carafate QID. HTN: - Hold amlodipine given NPO. Normotensive at this time. - Hold losartan in setting of SHAGGY . DVT ppx: Resume Heparin tomorrow following post-op FEN/GI: Clear liquid diet, advance as tolerated Dispo: PCU Code Status: Full Code (2) Hypertension: (3) SHAGGY (acute kidney injury): (4) Elevated troponin: (5) Elevated WBC count: Admission and Anticipated Discharge Date Admission Date: September 09, 2019 Supervising Physician Co-Signing Physician Notes I personally examined the patient and verified all squires points of history and exam, discussed case, and agree with decision making with Dr Link. feeling ok post op. hasn't eaten much but doesn't really like clear liquids. vitals noted nad heent nc at mmm breathing unlabored. skin no rashes no pallor or icterus. neuro no focal deficits. A/P: 1. hypernatremia -from poor PO intake, water deficit. improved. continue support. continue to follow labs, stable now. 2. severe protein calorie malnutrition - continue TPN. encourage PO intake. 3. 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 treat all of underlying causes (for now follow achalasia w easy to swallow diet and hopefully w correction of 'lytes and malnutrition this will improve, if not can consider med management) -- anticipate improvement post choley. 4. metabolic encephalopathy - related to above. continue reassurrance / supportive care / reorientation Subjective Patient without acute events overnight. Went to ER this AM for laparoscopic cholecystectomy by Dr. Patel. Feeling tired but overall well. No nausea or vomiting, no fevers or chills. No chest pain or shortness of breath. Review of Systems Review of Systems: All systems reviewed & are unremarkable except as noted in Subjective Physical Exam Constitutional: WD/WN, vitals as above Respiratory: normal respiratory effort, lungs clear to auscultation Cardiovascular: RRR, no murmur, no edema Gastrointestinal (Abdomen): Inspection/Auscultation: abdomen normal to inspection; abdomen not distended Percussion/Palpation: abdomen soft; abdomen nontender, no guarding and abdomen not rigid Skin: no rashes, warm and dry Psychiatric: Orientation: alert and oriented x 3 Results & Data Results & Data ([facility]) Vital Signs (Past 12 Hours) Vital Signs Temp Pulse Pulse Resp BP Pulse Ox 09/15/19 07:38 37 C 83 20 117/65 97 09/15/19 02:54 37 C 75 16 105/65 94 09/14/19 23:14 37.1 C 81 16 130/79 94 09/14/19 22:01 37.4 C 87 18 106/66 94 Resident Activity Tracking Resident Involvement: Resident Care Provided Care Provided: Adult Hospital Medicine
[2019-09-15] MEDS: SUCRALFATE 1 GM/10 ML UDC PO SCH ×4 (09:10→21:21)
--- NOTE | 2019-09-15 10:04 | Post Operative Brief Note ---
Immediate Post Op Note v1 Date of Surgery September 15, 2019 Pre & Post Diagnosis Operation Date: 09/15/19 14:15 Pre-Op Diagnosis: Dysfunctional Gallbladder, cholelithiasis Post-Op Diagnosis: Dysfunctional Gallbladder, cholelithiasis, ventral hernia I identified the patient and participated in the time-out.: Yes Procedure Operation Date: 09/15/19 14:15 Actual Procedures p Laparoscopic Cholecystectomy, Ventral Hernia Repair(Not Applicable) - Arvin Patel MD Surgeon Arvin Patel MD Hand Cooper Helper LISA [place] Estimated Blood Loss 20 Findings Consistent with Post-Op Diagnosis chronic cholecystitis, cholelithiasis, ventral hernia, size 1.5x1.5cm Fluids 1000ml Specimens gallbladder Drains Hay Catheter Anesthesia Type General Complications none Disposition Accompanied Patient To Recovery: Yes Disposition: Recovery Room Overlapping Procedure I was immediately available: during the entire case.
[2019-09-15] MEDS ORDERED: HYDROmorphone INJ 0.5 MG/0.5 ML SYR IV PRN (11:09)
[2019-09-15] MEDS ORDERED: EPINEPHRINE ADULT AUTO-INJECT 0.3 MG SYR IM PRN (11:09)
[2019-09-15] MEDS ORDERED: METHOCARBAMOL 750 MG TABLET PO PRN (11:09)
[2019-09-15] MEDS ORDERED: OXYCODONE/ACETAMINOPHEN 5mg/325mg TAB PO PRN (11:09)
[2019-09-15] MEDS: PANTOprazole 40 MG in SYRINGE 0 ML IV SCH ×2 (11:12→21:22)
--- NOTE | 2019-09-15 11:41 | Anesthesiology Progress Note ---
Date of Service September 15, 2019 Anesthesia Post Procedure Vital Signs Vital Signs: Temp Pulse Pulse Pulse Resp BP BP 09/15/19 11:35 89 18 127/77 09/15/19 11:15 97.9 F 84 20 151/87 H 09/15/19 11:05 88 17 168/85 H 09/15/19 10:58 97.3 F L 81 16 161/85 H 09/15/19 07:38 98.6 F 83 20 117/65 09/15/19 07:10 98.4 F 85 19 111/67 09/15/19 02:54 98.6 F 75 16 105/65 09/14/19 23:14 98.8 F 81 16 130/79 09/14/19 22:01 99.3 F 87 18 106/66 09/14/19 16:21 83 09/14/19 15:58 99.5 F 89 18 112/69 09/14/19 11:53 99.5 F 86 19 120/68 Pulse Ox 09/15/19 11:35 94 09/15/19 11:15 93 09/15/19 11:05 96 09/15/19 10:58 98 09/15/19 07:38 97 09/15/19 07:10 95 09/15/19 02:54 94 09/14/19 23:14 94 09/14/19 22:01 94 09/14/19 16:21 09/14/19 15:58 92 09/14/19 11:53 96 Transfer of Care Handoff Completed per policy Notes Mental Status: alert / awake / arousable and participated in evaluation Patient Amnestic to Procedure: Yes Nausea / Vomiting: adequately controlled Pain: adequately controlled Airway Patency, RR, SpO2: stable & adequate BP & HR: stable & adequate Hydration State: stable & adequate Anesthetic Complications: no major complications apparent and Pt Satisfied with anesthetic care
--- NOTE | 2019-09-15 12:11 | Operative Report (OR) ---
DATE OF OPERATION: 09/15/2019 PREOPERATIVE DIAGNOSES: Chronic cholecystitis, cholelithiasis, and dysfunctional gallbladder. POSTOPERATIVE DIAGNOSES: Chronic cholecystitis, cholelithiasis, and ventral hernia. OPERATION: Laparoscopic cholecystectomy, repair of ventral hernia. SURGEON: Arvin Patel MD. [employer]: Vesta Mc PA-C. ANESTHESIA: General. ESTIMATED BLOOD LOSS: About 20 mL. FINDINGS: Chronic cholecystitis, cholelithiasis, ventral hernia size about 1.5 x 1.5 cm. COMPLICATIONS: None. INDICATIONS FOR THE PROCEDURE: This is a 64-year-old gentleman who was admitted to hospital for nausea, vomiting, abdominal pain and patient was diagnosed with dysfunctional gallbladder with cholelithiasis. The patient is required to do laparoscopic cholecystectomy, possible open, possible cholangiogram. I did talk to the patient about the benefit, risk, alternate procedure. I indicated the risks may include but not limited to such as bleeding, infection, injury to common bile duct, myocardial infarction and even . The patient and patient's understand this, they signed informed consent and I answered all questions. DETAILS OF PROCEDURE: We brought the patient to the OR, put the patient in the supine position. The patient received SCD on bilateral legs to prevent DVT. Also, patient received 2 grams of Ancef IV for prophylactic antibiotic. The patient received general anesthesia without difficulties. The abdomen was prepped and draped in routine sterile fashion. After timeout, the patient had old scar incision on the midline abdomen. So we chose about 1 cm lateral just above the umbilicus and we injected local around this above umbilicus by using 1% lidocaine mixed with 0.5% Marcaine and then we made about a 2 cm incision just above the umbilicus. Once we dissected the subcutaneous layer, we found the patient had a ventral hernia, size about 1.5 x 1.5 cm. At this moment, we reduced all of the hernia contents, fat, tissue back to abdominal cavity. We used the hernia entry, put a Steven trocar in and put the camera in, looked around the abdomen. Also connected to CO2 to create pneumoperitoneum, flow rate is 6 liters per minute, pressure not more than 14 mmHg and we put the camera in, looked around the abdomen; it showed normal finding on the liver. However, the gallbladder showed chronic cholecystitis, omental adhesion to gallbladder, diagnosis of chronic cholecystitis. Then, we put another two 5 mm trocars on the right upper quadrant, one 11 trocar on the epigastric area. Then we used the Bovie to take down the omental adhesion to the gallbladder. We used another grasper to hold the gallbladder. The gallbladder had significant distention, so we had to use a large needle to decompress the gallbladder first and when we suctioned, the bile fluid came out and there were some small tiny stones came out also. Then we used another grasper to hold the pouch of gallbladder, put a lateral to expose the triangle of Calot. Cystic duct was identified and mobilized. Then I put two 10 mm metal clips on the proximal cystic duct, one on the distal cystic duct. Then I used a scissor for transection of cystic duct. Rechecked, no bile leak. The cystic artery was identified and mobilized. I put two 5 mm metal clips on the proximal cystic artery, one on the distal cystic artery and used a scissor for transection of cystic artery. Rechecked, no active bleeding. Then we used the Bovie to take down gallbladder and rechecked and no active bleeding, no bile leak from the liver bed. Then we removed gallbladder through the catch bag. Then we reinserted Steven trocar in, connected to CO2 to create pneumoperitoneum, again looked around the abdomen, no bile leak, no active bleeding from the liver bed. Then we removed all trocar under direct vision. No active bleeding from the trocar site. Pneumoperitoneum is released. Then we found the patient had ventral hernia, size about 1.5 x 1.5 cm. I decided to use #1 Ethibond, closed the ventral hernia interruptedly, closed with no tension and hemostasis obtained. Then we closed subcutaneous layer by using 2-0 Vicryl interruptedly, closed skin by using 4-0 Vicryl continuous running, closed another two 5 mm trocar site skin only by using 4-0 Vicryl, closed the epigastric area, we used 2-0 Vicryl to close the subcutaneous layer interruptedly, closed skin by using 4-0 Vicryl interruptedly, then we put the dressing on. The patient tolerated the procedure well. All instrument, needle and sponge count were correct x2 at the end of the case. The patient was transferred to recovery room in stable condition. The specimen was sent to pathology. I attest to the content of the Intraoperative Record and any orders documented therein. Any exception s are noted below.
[2019-09-15] MEDS ORDERED: NEOSTIGMINE METHYLSULFATE 5 MG/5 ML SYR ONE (12:16)
[2019-09-15] MEDS ORDERED: GLYCOPYRROLATE 0.2 MG/ML VIAL ONE (12:16)
[2019-09-15] MEDS ORDERED: ACETAMINOPHEN 325 MG TAB PO PRN (14:30)
[2019-09-15] MEDS ORDERED: TPN IV SCH (16:00)
[2019-09-15] MEDS ORDERED: CENTRAL PN IV SCH (16:00)
--- NOTE | 2019-09-15 19:24 | Billing Data ---
Date of Service September 15, 2019 Coding Level of Care Code 53236 Subseq Hosp Care Lvl 3
[2019-09-16] MEDS: SUCRALFATE 1 GM/10 ML UDC PO SCH ×4 (08:01→21:24)
[2019-09-16] MEDS: ASPIRIN 81 MG ECTAB PO SCH (08:02)
[2019-09-16] MEDS: AMLODIPINE BESYLATE 5 MG TAB PO SCH (08:03)
[2019-09-16] MEDS: FOLIC ACID 1 MG in SYRINGE 9.8 ML IV SCH (08:03)
[2019-09-16] MEDS: PANTOprazole 40 MG in SYRINGE 0 ML IV SCH ×2 (08:04→21:25)
[2019-09-16] MEDS: THIAMINE HCL 100 MG in SYRINGE 9 ML IV SCH (08:04)
[2019-09-16 08:48] LABS: Eosinophils # (auto) 0.02 K/uL (0-0.5); Eosinophils % (auto) 0.2 %; Hemoglobin 10.7 g/dL (14.0-18.0); Immature Granulocytes # (auto) 0.12 K/uL (0.00-0.02); Immature Granulocytes % (auto) 1.2 %; Lymphocytes # (auto) 1.21 K/uL (1.2-3.4); Lymphocytes % (auto) 11.9 %; Mean Corpuscular Hemoglobin 31.1 pg (25-34); Mean Corpuscular Hgb Conc 31.5 g/dL (32-36); Mean Corpuscular Volume 98.8 fL (80-100); Mean Platelet Volume 12.9 fL (7.4-10.4); Monocytes # (auto) 0.77 K/uL (0.11-0.59); Monocytes % (auto) 7.6 %; Neutrophils # (auto) 8.06 K/uL (1.4-6.5); Neutrophils % (auto) 79.1 %; Platelet Count 232 K/uL (130-400); RDW Coefficient of Variation 15.3 % (11.5-14.5); RDW Standard Deviation 51.7 fL (36.4-46.3); Red Blood Count 3.44 M/uL (4.7-6.1); White Blood Count 10.18 K/uL (4.8-10.8)
[2019-09-16] MEDS ORDERED: POTASSIUM CHLORIDE 20 MEQ/15 ML UDC PO SCH (09:00)
[2019-09-16 09:18] LABS: Albumin Level 2.4 gm/dl (3.4-5.0); Calcium 8.8 mg/dl (8.5-10.1); Creatinine Clr Calc Pharmacy 87.8 ml/min; Est GFR (African American) 108.5; Est GFR (Non-African American) 93.6; Magnesium 2.1 mg/dl (1.8-2.4); Potassium 3.6 mmol/L (3.5-5.1)
[2019-09-16 09:24] LABS: Albumin Globulin Ratio 0.6 (0.9-2); Bilirubin,Total 0.5 mg/dl (0.2-1); Globulin 4.3 gm/dl (2.5-4.0); Phosphorus 2.7 mg/dl (2.5-4.9); Total Protein 6.7 gm/dl (6.4-8.2)
[2019-09-16] MEDS ORDERED: DOCUSATE SODIUM 100 MG CAP PO ONE (09:29)
[2019-09-16] MEDS: HEPARIN SOD 5,000 UNIT/0.5 ML VIAL SQ SCH ×2 (10:17→21:24)
[2019-09-16] MEDS: POLYETHYLENE (MIRALAX) 17 GM PACK PO SCH (10:18)
--- NOTE | 2019-09-16 10:37 | Hospitalist Progress Note ---
Date of Service September 16, 2019 Assessment & Plan (1) Encephalopathy acute: 64 yo M admitted for AMS and hypernatremia due to vomiting, now POD #0 s/p laparoscopic cholecystectomy. Dysphagia and vomiting causing severe protein calorie malnutrition and electrolyte abnormalities: - Patient has been without adequate PO intake at least since discharge from last admission, if not prior to that based on the history he gave this admission. - Possibly 2/2 PUD however prior to last discharge was started on Carafate and PPI BID without any improvement. - Swallow study that shows moderately enlarged esophagus and some esophageal dysmotility. - Started PPN while actively evaluating for causes of dysphagia and vomiting, pharmacy to administer. - POD1 s/p laproscopic cholecystectomy - currently on PPN, advancing diet as tolerated and pushing PO fluids as tolerated - monitoring Phos, Mag, BMP while on PPN Acute vs Chronic Delirium: - A&Ox3, loses focus mcc through speaking a sentence - Head CT showing no acute intracranial abnormalities. - WBC mildly elevated to 13 on admission, normal immediately following. - Liver enzymes normal. - Patient has been in hospital for several days at this point and sometimes waxes and wanes with level of alertness, though this is much improved since resolution of hypernatremia as above. - Suspect some element of delirium due to malnutrition, new environment, poor sleep in hospital. Hypovolemic Hypernatremia: resolved - Poor oral intake over a week before admission per . - Na 166 and clinically hypovolemic on admission; 138 now s/p gradual rehydration. SHAGGY, resolved: - Cr 3.74, BUN 93, ratio 24 on admission. Cr improved to 0.77 - Trend BMP as above due to PPN, avoid nephrotoxic meds. Elevated Troponin: resolved - Trop 0.13 on admission, peaked at 0.15, with quick downtrend. - EKG without ST or T wave changes. - Possibly secondary to tachycardia and dehydration which have since resolved. Leukocytosis: resolved - WBC elevated to 13 on admission, has since normalized. - BCx x2 with no growth, UCx with alpha strep, likely contaminant and without urinary symptoms. - CXR showing no acute process. - Suspect secondary to volume contraction. Elevated Bilirubin: resolved - T bili 1.7 on admission, down to 0.5 - POD1 s/p lap amy Hypoalbuminemia: - Albumin level 2.6 on admission. - Likely related to protein calorie malnutrition in setting of reduced PO intake . - PPN as above. PUD: - Continue pantoprazole BID. - Continue carafate QID. HTN: - Hold amlodipine given NPO. Normotensive at this time. - Hold losartan in setting of SHAGGY . DVT ppx: Heparin resumed FEN/GI: Full liquid diet, advance as tolerated Dispo: med surg Code Status: Full Code (2) Hypertension: (3) SHAGGY (acute kidney injury): (4) Elevated troponin: (5) Elevated WBC count: Admission and Anticipated Discharge Date Admission Date: September 09, 2019 Supervising Physician Co-Signing Physician Notes I personally examined the patient and verified all squires points of history and exam, discussed case, and agree with decision making with Dr Todd. eating full liquids without pain/nausea/etc - just doesn't particularly like them. thinks he would do better with more substantial food. vitals noted nad heent nc at mmm breathing unlabored. abd soft only really tender incisionally. skin no rashes no pallor or icterus. neuro no focal deficits. A/P: 1. hypernatremia -from poor PO intake, water deficit. improved. follow on fluids/TPN 2. severe protein calorie malnutrition - continue TPN until he's showing good and consistent PO intake 3. 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 treat all of underlying causes (for now follow achalasia w easy to swallow diet and hopefully w correction of 'lytes and malnutrition this will improve, if not can consider med management) -- follwing for improvement post choley - so far appearing to show progress. advance diet and follow. 4. metabolic encephalopathy - related to above. continue reasurrance / supportive care / reorientation Subjective Mildly delirious but pleasant 64 yo M. Says he had no issues with clear liquid diet this morning and has more of an appetite. No complaints this morning. Review of Systems Constitutional: no fever, no chills, no body aches and no fatigue Respiratory: no cough and no dyspnea Cardiovascular: no chest pain, no dyspnea and no edema Gastrointestinal: no abdominal pain, no nausea, no vomiting, no constipation and no diarrhea/loose stools Physical Exam Constitutional: + cachectic and + altered mental status (mildly delirious) Cardiovascular: Rate/Rhythm: regular rhythm and + tachycardic Heart Sounds: normal S1 and normal S2; no gallop, no murmur and no cardiac rub Extremities: no calf tenderness and no pedal edema Gastrointestinal (Abdomen): Inspection/Auscultation: abdomen normal to inspe ction and normal bowel sounds; abdomen not distended Percussion/Palpation: abdomen soft; abdomen nontender, no guarding and abdomen not rigid Psychiatric: A+Ox3, euthymic affect Results & Data Results & Data ([facility]) Vital Signs (Past 12 Hours) Vital Signs Temp Pulse Pulse Resp BP Pulse Ox 09/16/19 07:42 36.8 C 82 18 137/74 95 09/16/19 03:17 36.8 C 81 18 119/64 96 09/15/19 23:33 36.8 C 78 20 122/74 97 09/15/19 23:12 75 Laboratory Results WBC 10.18 K/uL (4.8-10.8) 09/16/19 07:48 RBC 3.44 M/uL (4.7-6.1) L 09/16/19 07:48 Hgb 10.7 g/dL (14.0-18.0) L 09/16/19 07:48 Hct 34.0 % (42-52) L 09/16/19 07:48 MCV 98.8 fL (80-100) 09/16/19 07:48 MCH 31.1 pg (25-34) 09/16/19 07:48 MCHC 31.5 g/dL (32-36) L 09/16/19 07:48 RDW Std Deviation 51.7 fL (36.4-46.3) H 09/16/19 07:48 RDW Coeff of Kaleigh 15.3 % (11.5-14.5) H 09/16/19 07:48 Plt Count 232 K/uL (130-400) 09/16/19 07:48 MPV 12.9 fL (7.4-10.4) H 09/16/19 07:48 Immature Gran % (Auto) 1.2 % 09/16/19 07:48 Neut % (Auto) 79.1 % 09/16/19 07:48 Lymph % (Auto) 11.9 % 09/16/19 07:48 Redwood % (Auto) 7.6 % 09/16/19 07:48 Eos % (Auto) 0.2 % 09/16/19 07:48 Baso % (Auto) 0.0 % 09/16/19 07:48 Neut # (Auto) 8.06 K/uL (1.4-6.5) H 09/16/19 07:48 Lymph # (Auto) 1.21 K/uL (1.2-3.4) 09/16/19 07:48 Redwood # (Auto) 0.77 K/uL (0.11-0.59) H 09/16/19 07:48 Eos # (Auto) 0.02 K/uL (0-0.5) 09/16/19 07:48 Baso # (Auto) 0.00 K/uL (0-0.2) 09/16/19 07:48 Immature Gran # (Auto) 0.12 K/uL (0.00-0.02) H 09/16/19 07:48 Absolute Nucleated RBC 0.07 K/uL (0-0) H 09/09/19 02:20 Nucleated RBC % (auto) 0.5 % 09/09/19 02:20 Platelet Estimate Decreased (Normal) L 09/12/19 05:28 Giant Platelets 1+ 09/12/19 05:28 RBC Morphology Unremarkable 09/10/19 05:49 Sodium 139 mmol/L (136-145) 09/16/19 07:48 Potassium 3.6 mmol/L (3.5-5.1) 09/16/19 07:48 Chloride 103 mmol/L (98-107) 09/16/19 07:48 Carbon Dioxide 29 mmol/L (21-32) 09/16/19 07:48 Anion Gap 6.0 (3-11) 09/16/19 07:48 BUN 24 mg/dl (7-18) H 09/16/19 07:48 Creatinine 0.79 mg/dl (0.6-1.4) 09/16/19 07:48 Est Cr Clr Drug Dosing 87.8 ml/min 09/16/19 07:48 Est GFR ( Amer) 108.5 09/16/19 07:48 Est GFR (Non-Af Amer) 93.6 09/16/19 07:48 BUN/Creatinine Ratio 30.0 (10-20) H 09/16/19 07:48 Glucose 88 mg/dl (70-99) 09/16/19 07:48 POC Glucose 117 mg/dl (70-99) H 09/16/19 11:22 Osmolality 339 mOsm/kg (280-300) H 09/10/19 05:49 Calcium 8.8 mg/dl (8.5-10.1) 09/16/19 07:48 Phosphorus 2.7 mg/dl (2.5-4.9) D 09/16/19 07:48 Magnesium 2.1 mg/dl (1.8-2.4) 09/16/19 07:48 Total Bilirubin 0.5 mg/dl (0.2-1) 09/16/19 07:48 AST 26 U/L (15-37) 09/16/19 07:48 ALT 38 U/L (12-78) 09/16/19 07:48 Alkaline Phosphatase 71 U/L (45-117) 09/16/19 07:48 Troponin I 0.149 ng/ml (0-0.045) H* 09/09/19 15:33 Total Protein 6.7 gm/dl (6.4-8.2) 09/16/19 07:48 Albumin 2.4 gm/dl (3.4-5.0) L 09/16/19 07:48 Globulin 4.3 gm/dl (2.5-4.0) H 09/16/19 07:48 Albumin/Globulin Ratio 0.6 (0.9-2) L 09/16/19 07:48 Triglycerides 212 mg/dl (0-150) H 09/14/19 05:58 Vitamin B12 530 pg/ml (211-911) 09/16/19 11:44 Folate > 24.00 ng/ml (>5.38) 09/16/19 11:44 TSH 0.299 uIu/ml (0.300-4.500) L 09/09/19 02:20 Free T4 1.09 ng/dl (0.8-1.6) 09/09/19 02:20 Specimen Hemolysis 09/09/19 02:20 Urine Color Dark Yellow 09/09/19 07:40 Urine Appearance Cloudy (Clear) A 09/09/19 07:40 Urine pH 5.0 (4.5-7.5) 09/09/19 07:40 Ur Specific Bailey 1.022 (1.000-1.030) 09/09/19 07:40 Urine Protein 1+ (Negative) H 09/09/19 07:40 Urine Glucose (UA) Negative (Negative) 09/09/19 07:40 Urine Ketones Trace (Negative) H 09/09/19 07:40 Urine Blood Trace (Negative) H 09/09/19 07:40 Urine Nitrite Negative (Negative) 09/09/19 07:40 Urine Bilirubin Negative (Negative) 09/09/19 07:40 Urine Urobilinogen Negative (Negative) 09/09/19 07:40 Ur Leukocyte Esterase Negative (Negative) 09/09/19 07:40 Urine WBC (Auto) 1-5 /hpf (0-5) 09/09/19 07:40 Urine RBC (Auto) 0-4 /hpf (0-4) 09/09/19 07:40 U Hyaline Cast (Auto) 1-5 /lpf (0-5) 09/09/19 07:40 U Epithel Cells (Auto) 10-20 /lpf (0-5) H 09/09/19 07:40 Urine Bacteria (Auto) 2+ (Negative) H 09/09/19 07:40 Urine Yeast Not Reportable 09/09/19 07:40 Urine Osmolality 622 mOsm/kg (500-800) 09/09/19 07:40 Ur Random Sodium 33 mmol/L 09/09/19 07:40 Resident Activity Tracking Resident Involvement: Resident Care Provided Care Provided: Adult Hospital Medicine
--- NOTE | 2019-09-16 10:56 | Surgery Progress Note ---
Date of Service September 16, 2019 Assessment & Plan (1) Dysfunctional gallbladder: POD#1 laparoscopic cholecystectomy WBC 10 and LFT's within normal limits tolerating clears, okay to advance diet as tolerates. continues on ppn surgical dressings c/d/i pain manageable will need follow up with Dr. Patel at time of discharge Subjective Patient offers no complaints. Doing well and tolerating clear liquids. Has some incisional pain, but is tolerable. Physical Exam Physical Exam: awake/alert Respiratory: normal respiratory effort Gastrointestinal (Abdomen): Inspection/Auscultation: + abdominal surgical incision (c/d/i with surgical dressings in place) Percussion/Palpation: abdomen soft Results & Data Vital Signs (Past 12 Hours) Vital Signs Temp Pulse Pulse Resp BP Pulse Ox 09/16/19 07:42 36.8 C 82 18 137/74 95 09/16/19 03:17 36.8 C 81 18 119/64 96 09/15/19 23:33 36.8 C 78 20 122/74 97 09/15/19 23:12 75 PG Care Time/CCT Total # of Minutes Spent Total Time Spent with Patient: Total time spent is greater than 50% in coordination of care (as documented) at patient's floor/unit and/or counseling patient: Coding Level of Care Code 11682 Subseq Hosp Care Lvl 1 Diagnoses Dysfunctional gallbladder K82.8
[2019-09-16 12:47] LABS: Folate (Folic Acid) > 24.00 ng/ml (>5.38); Vitamin B12 530 pg/ml (211-911)
[2019-09-16] MEDS ORDERED: Custom Central Pn 2,000 ML in TPN BAG 0 ML IV SCH (16:00)
--- NOTE | 2019-09-16 18:56 | Billing Data ---
Date of Service September 16, 2019 Coding Level of Care Code 95484 Subseq Hosp Care Lvl 3
[2019-09-17 06:49] LABS: BUN Creatinine Ratio 38.8 (10-20); Calcium 8.4 mg/dl (8.5-10.1); Creatinine Clr Calc Pharmacy 95.3 ml/min; Est GFR (Non-African American) 98.3; Magnesium 1.9 mg/dl (1.8-2.4); Potassium 3.9 mmol/L (3.5-5.1)
[2019-09-17] MEDS: SUCRALFATE 1 GM/10 ML UDC PO SCH ×4 (08:48→20:40)
[2019-09-17] MEDS: ASPIRIN 81 MG ECTAB PO SCH (08:48)
[2019-09-17] MEDS: POLYETHYLENE (MIRALAX) 17 GM PACK PO SCH ×2 (08:48→20:40)
--- NOTE | 2019-09-17 08:48 | Surgery Progress Note ---
Date of Service September 17, 2019 Assessment & Plan (1) Dysfunctional gallbladder: POD 2 lap amy diet as bernarda on PPN ? remove steward Subjective no c/o, diet advanced, eating small amounts Physical Exam Gastrointestinal (Abdomen): Inspection/Auscultation: + abdominal surgical incision (clean, dry) Percussion/Palpation: abdomen soft Results & Data Vital Signs (Past 12 Hours) Vital Signs Temp Pulse Resp BP Pulse Ox 09/17/19 06:59 36.6 C 82 16 106/65 95 09/16/19 23:04 37 C 80 16 102/63 94 PG Care Time/CCT Total # of Minutes Spent Total Time Spent with Patient: Total time spent is greater than 50% in coordination of care (as documented) at patient's floor/unit and/or counseling patient: Coding Level of Care Code 31434 Subseq Hosp Care Lvl 1 Diagnoses Dysfunctional gallbladder K82.8
[2019-09-17] MEDS: THIAMINE HCL 100 MG in SYRINGE 9 ML IV SCH (08:49)
[2019-09-17] MEDS: PANTOprazole 40 MG in SYRINGE 0 ML IV SCH (08:49)
[2019-09-17] MEDS: AMLODIPINE BESYLATE 5 MG TAB PO SCH (08:49)
--- NOTE | 2019-09-17 08:49 | Hospitalist Progress Note ---
Date of Service September 17, 2019 Assessment & Plan (1) Encephalopathy acute: 64 yo M admitted for AMS and hypernatremia due to vomiting, now POD #0 s/p laparoscopic cholecystectomy. Dysphagia and vomiting causing severe protein calorie malnutrition and electrolyte abnormalities: - POD2 s/p Lap amy. Surgery signed off care. - Continuing PPN via PICC today for nutrition catch up care. Mag, Phos, BMP stable. Acute vs Chronic Delirium: - A&Ox3, loses focus intermediate through speaking a sentence - Head CT showing no acute intracranial abnormalities. - Patient has been in hospital for several days at this point and sometimes waxes and wanes with level of alertness, though this is much improved since resolution of hypernatremia as above. - Suspect some element of delirium due to malnutrition, new environment, poor sleep in hospital. Hypovolemic Hypernatremia: resolved - Poor oral intake over a week before admission per . - Na 166 and clinically hypovolemic on admission; 138 now s/p gradual rehydration. SHAGGY, resolved: - Cr 3.74, BUN 93, ratio 24 on admission. Cr improved to 0.77 - Trend BMP as above due to PPN, avoid nephrotoxic meds. Elevated Troponin: resolved - Trop 0.13 on admission, peaked at 0.15, with quick downtrend. - EKG without ST or T wave changes. - Possibly secondary to tachycardia and dehydration which have since resolved. Leukocytosis: resolved - WBC elevated to 13 on admission, has since normalized. - BCx x2 with no growth, UCx with alpha strep, likely contaminant and without urinary symptoms. - CXR showing no acute process. - Suspect secondary to volume contraction. Elevated Bilirubin: resolved - T bili 1.7 on admission, down to 0.5 - POD1 s/p lap amy Hypoalbuminemia: - Albumin level 2.6 on admission. - Likely related to protein calorie malnutrition in setting of reduced PO intake . - PPN as above. PUD: - Continue pantoprazole BID. - Continue carafate QID. HTN: - Hold amlodipine given NPO. Normotensive at this time. - Hold losartan in setting of SHAGGY . DVT ppx: Heparin resumed FEN/GI: regular diet + PPN Dispo: home pending improvement of Oral caloric intake Code Status: Full Code (2) Hypertension: (3) SHAGGY (acute kidney injury): (4) Elevated troponin: (5) Elevated WBC count: Admission and Anticipated Discharge Date Admission Date: September 09, 2019 Supervising Physician Co-Signing Physician Notes I personally examined the patient and verified all squires points of history and exam, discussed case, and agree with decision making with Dr Todd. seems more confused - when i see him he notes that he's still just getting a liquid diet - but it was advanced late yesterday (and in d/w dr todd he had food when she saw him this AM) no abdominal pain vitals noted nad heent nc at mmm breathing unlabored. skin no rashes no pallor or icterus. neuro no focal deficits. A/P: 1. hypernatremia -from poor PO intake, water deficit. improved. continue to follow on fluids/TPN 2. severe protein calorie malnutrition - continue TPN until he's showing good and consistent PO intake, follow lytes 3. persistent feeding intolerance / vomiting - probably multifactorial - PUD probably played a role and is being treated, achalasia/esophageal dysmotility likely playing a role, GB disease likely playing a role, and at this point malnu trition and subsequent encephalopathy also likely contributing. treat all of underlying causes (for now follow achalasia as hopefully w correction of 'lytes and malnutrition this will improve, if not can consider med management) -- following for improvement post choley - if not eating well by around 14 then will need to revisit how much esophageal dysmotility could be playing a role - but wtihout gagging/vomiting/regurg/choking - seems unlikely - vs if he would need an appetite stimulant 4. metabolic encephalopathy - related to above. continue reasurance / supportive care / reorientation Subjective No complaints this morning. States his appetite is so-so. Hadn't eaten half of his breakfast of toast, eggs, coffee at the time of my interview. Review of Systems Constitutional: no fever, no chills, no body aches and no fatigue Respiratory: no cough and no dyspnea Cardiovascular: no chest pain, no dyspnea and no edema Gastrointestinal: no abdominal pain, no nausea, no vomiting, no constipation and no diarrhea/loose stools Physical Exam Constitutional: + thin and cooperative; no acute distress and not ill appearing Neck: normal visual inspection Respiratory: normal respiratory effort and able to speak in complete sentences; no respiratory distress, no labored breathing, no retractions, no cou gh and no audible wheezes Auscultation: lungs clear to auscultation bilaterally; no crackles, no rales, no rhonchi and no wheezes Cardiovascular: Rate/Rhythm: regular rate and regular rhythm Heart Sounds: normal S1 and normal S2; no gallop, no murmur and no cardiac rub Vessels: posterior tibial pulses present Extremities: no pedal edema and no edema Gastrointestinal (Abdomen): Inspection/Auscultation: abdomen normal to inspection and normal bowel sounds; abdomen not distended Percussion/Palpation: abdomen soft; abdomen nontender, no guarding, abdomen not rigid and no abdominal mass Results & Data Results & Data ([facility]) Vital Signs (Past 12 Hours) Vital Signs Temp Pulse Resp BP Pulse Ox 09/17/19 06:59 36.6 C 82 16 106/65 95 09/16/19 23:04 37 C 80 16 102/63 94 Laboratory Results WBC 10.18 K/uL (4.8-10.8) 09/16/19 07:48 RBC 3.44 M/uL (4.7-6.1) L 09/16/19 07:48 Hgb 10.7 g/dL (14.0-18.0) L 09/16/19 07:48 Hct 34.0 % (42-52) L 09/16/19 07:48 MCV 98.8 fL (80-100) 09/16/19 07:48 MCH 31.1 pg (25-34) 09/16/19 07:48 MCHC 31.5 g/dL (32-36) L 09/16/19 07:48 RDW Std Deviation 51.7 fL (36.4-46.3) H 09/16/19 07:48 RDW Coeff of Kaleigh 15.3 % (11.5-14.5) H 09/16/19 07:48 Plt Count 232 K/uL (130-400) 09/16/19 07:48 MPV 12.9 fL (7.4-10.4) H 09/16/19 07:48 Immature Gran % (Auto) 1.2 % 09/16/19 07:48 Neut % (Auto) 79.1 % 09/16/19 07:48 Lymph % (Auto) 11.9 % 09/16/19 07:48 Mcminn % (Auto) 7.6 % 09/16/19 07:48 Eos % (Auto) 0.2 % 09/16/19 07:48 Baso % (Auto) 0.0 % 09/16/19 07:48 Neut # (Auto) 8.06 K/uL (1.4-6.5) H 09/16/19 07:48 Lymph # (Auto) 1.21 K/uL (1.2-3.4) 09/16/19 07:48 Mcminn # (Auto) 0.77 K/uL (0.11-0.59) H 09/16/19 07:48 Eos # (Auto) 0.02 K/uL (0-0.5) 09/16/19 07:48 Baso # (Auto) 0.00 K/uL (0-0.2) 09/16/19 07:48 Immature Gran # (Auto) 0.12 K/uL (0.00-0.02) H 09/16/19 07:48 Absolute Nucleated RBC 0.07 K/uL (0-0) H 09/09/19 02:20 Nucleated RBC % (auto) 0.5 % 09/09/19 02:20 Platelet Estimate Decreased (Normal) L 09/12/19 05:28 Giant Platelets 1+ 09/12/19 05:28 RBC Morphology Unremarkable 09/10/19 05:49 Sodium 139 mmol/L (136-145) 09/17/19 05:18 Potassium 3.9 mmol/L (3.5-5.1) 09/17/19 05:18 Chloride 104 mmol/L (98-107) 09/17/19 05:18 Carbon Dioxide 33 mmol/L (21-32) H 09/17/19 05:18 Anion Gap 2.0 (3-11) L 09/17/19 05:18 BUN 27 mg/dl (7-18) H 09/17/19 05:18 Creatinine 0.70 mg/dl (0.6-1.4) 09/17/19 05:18 Est Cr Clr Drug Dosing 95.3 ml/min 09/17/19 05:18 Est GFR ( Amer) 114.0 09/17/19 05:18 Est GFR (Non-Af Amer) 98.3 09/17/19 05:18 BUN/Creatinine Ratio 38.8 (10-20) H 09/17/19 05:18 Glucose 105 mg/dl (70-99) H 09/17/19 05:18 POC Glucose 120 mg/dl (70-99) H 09/17/19 05:49 Osmolality 339 mOsm/kg (280-300) H 09/10/19 05:49 Calcium 8.4 mg/dl (8.5-10.1) L 09/17/19 05:18 Phosphorus 3.0 mg/dl (2.5-4.9) 09/17/19 05:18 Magnesium 1.9 mg/dl (1.8-2.4) 09/17/19 05:18 Total Bilirubin 0.5 mg/dl (0.2-1) 09/16/19 07:48 AST 26 U/L (15-37) 09/16/19 07:48 ALT 38 U/L (12-78) 09/16/19 07:48 Alkaline Phosphatase 71 U/L (45-117) 09/16/19 07:48 Troponin I 0.149 ng/ml (0-0.045) H* 09/09/19 15:33 Total Protein 6.7 gm/dl (6.4-8.2) 09/16/19 07:48 Albumin 2.4 gm/dl (3.4-5.0) L 09/16/19 07:48 Globulin 4.3 gm/dl (2.5-4.0) H 09/16/19 07:48 Albumin/Globulin Ratio 0.6 (0.9-2) L 09/16/19 07:48 Triglycerides 142 mg/dl (0-150) 09/17/19 05:18 Vitamin B12 530 pg/ml (211-911) 09/16/19 11:44 Folate > 24.00 ng/ml (>5.38) 09/16/19 11:44 TSH 0.299 uIu/ml (0.300-4.500) L 09/09/19 02:20 Free T4 1.09 ng/dl (0.8-1.6) 09/09/19 02:20 Specimen Hemolysis 09/09/19 02:20 Urine Color Dark Yellow 09/09/19 07:40 Urine Appearance Cloudy (Clear) A 09/09/19 07:40 Urine pH 5.0 (4.5-7.5) 09/09/19 07:40 Ur Specific [place] 1.022 (1.000-1.030) 09/09/19 07:40 Urine Protein 1+ (Negative) H 09/09/19 07:40 Urine Glucose (UA) Negative (Negative) 09/09/19 07:40 Urine Ketones Trace (Negative) H 09/09/19 07:40 Urine Blood Trace (Negative) H 09/09/19 07:40 Urine Nitrite Negative (Negative) 09/09/19 07:40 Urine Bilirubin Negative (Negative) 09/09/19 07:40 Urine Urobilinogen Negative (Negative) 09/09/19 07:40 Ur Leukocyte Esterase Negative (Negative) 09/09/19 07:40 Urine WBC (Auto) 1-5 /hpf (0-5) 09/09/19 07:40 Urine RBC (Auto) 0-4 /hpf (0-4) 09/09/19 07:40 U Hyaline Cast (Auto) 1-5 /lpf (0-5) 09/09/19 07:40 U Epithel Cells (Auto) 10-20 /lpf (0-5) H 09/09/19 07:40 Urine Bacteria (Auto) 2+ (Negative) H 09/09/19 07:40 Urine Yeast Not Reportable 09/09/19 07:40 Urine Osmolality 622 mOsm/kg (500-800) 09/09/19 07:40 Ur Random Sodium 33 mmol/L 09/09/19 07:40 Resident Activity Tracking Resident Involvement: Resident Care Provided Care Provided: Adult Hospital Medicine
[2019-09-17] MEDS: HEPARIN SOD 5,000 UNIT/0.5 ML VIAL SQ SCH ×2 (08:50→20:40)
[2019-09-17] MEDS: FOLIC ACID 1 MG in SYRINGE 9.8 ML IV SCH (08:50)
[2019-09-17] MEDS: Custom Central Pn 2,000 ML in TPN BAG 0 ML IV SCH (15:30)
--- NOTE | 2019-09-17 19:52 | Billing Data ---
Date of Service September 17, 2019 Coding Level of Care Code 39230 Subseq Hosp Care Lvl 3
[2019-09-17] MEDS: PANTOprazole 40 MG TAB PO SCH (20:40)
[2019-09-18 05:57] LABS: BUN Creatinine Ratio 34.8 (10-20); Calcium 8.7 mg/dl (8.5-10.1); Creatinine Clr Calc Pharmacy 85.5 ml/min; Est GFR (Non-African American) 94.1; Magnesium 1.9 mg/dl (1.8-2.4); Phosphorus 3.2 mg/dl (2.5-4.9); Potassium 3.8 mmol/L (3.5-5.1)
[2019-09-18 07:35] LABS: Albumin Level 2.5 gm/dl (3.4-5.0); Bilirubin Direct 0.2 mg/dl (0-0.2); Bilirubin,Total 0.7 mg/dl (0.2-1); Total Protein 7.2 gm/dl (6.4-8.2)
--- NOTE | 2019-09-18 09:08 | Surgery Progress Note ---
Date of Service September 18, 2019 Assessment & Plan (1) Dysfunctional gallbladder: POD # 3 s/p laparoscopic cholecystectomy - avss - no abdominal pain - t. bili and lfts wnl Plan: Doing well from surgical standpoint okay to discharge from surgical standpoint advance diet at home as tolerated discharge instructions reviewed f/u surgical office in [address] Patel has seen and examined pt, agrees with above. Subjective feeling good no abdominal pain tolerating low fat diet no n/v Physical Exam Constitutional: WD/WN, vitals as above no acute distress and not ill appearing Respiratory: normal respiratory effort; no respiratory distress Gastrointestinal (Abdomen): Inspection/Auscultation: abdomen normal to inspection; abdomen not distended Percussion/Palpation: abdomen soft; abdomen nontender, no guarding and abdomen not rigid Skin: no rashes, warm and dry + incision (clean/dry/intact) Psychiatric: A+Ox3, euthymic affect Results & Data Vital Signs (Past 12 Hours) Vital Signs Temp Pulse Pulse Resp BP Pulse Ox 09/18/19 07:34 36.8 C 87 16 108/63 96 09/18/19 00:42 37.2 C 57 L 14 124/66 94 Laboratory Results 09/18/19 09/18/19 09/17/19 Range/Units 05:11 05:11 12:09 Sodium 138 (136-145) mmol/L Potassium 3.8 (3.5-5.1) mmol/L Chloride 101 (98-107) mmol/L Carbon Dioxide 29 (21-32) mmol/L Anion Gap 8.0 (3-11) BUN 27 H (7-18) mg/dl Creatinine 0.78 (0.6-1.4) mg/dl Est Cr Clr Drug Dosing 85.5 ml/min Est GFR ( Amer) 109.0 Est GFR (Non-Af Amer) 94.1 BUN/Creatinine Ratio 34.8 H (10-20) Glucose 108 H (70-99) mg/dl POC Glucose 126 H (70-99) mg/dl Calcium 8.7 (8.5-10.1) mg/dl Phosphorus 3.2 (2.5-4.9) mg/dl Magnesium 1.9 (1.8-2.4) mg/dl Total Bilirubin 0.7 (0.2-1) mg/dl Direct Bilirubin 0.2 (0-0.2) mg/dl AST 25 (15-37) U/L ALT 45 (12-78) U/L Alkaline Phosphatase 92 (45-117) U/L Total Protein 7.2 (6.4-8.2) gm/dl Albumin 2.5 L (3.4-5.0) gm/dl
[2019-09-18] MEDS: ASPIRIN 81 MG ECTAB PO SCH (09:13)
[2019-09-18] MEDS: SUCRALFATE 1 GM/10 ML UDC PO SCH ×4 (09:14→20:26)
[2019-09-18] MEDS: POLYETHYLENE (MIRALAX) 17 GM PACK PO SCH ×2 (09:15→20:26)
[2019-09-18] MEDS: AMLODIPINE BESYLATE 5 MG TAB PO SCH (09:15)
[2019-09-18] MEDS: FOLIC ACID 1 MG TAB PO SCH (09:15)
[2019-09-18] MEDS: HEPARIN SOD 5,000 UNIT/0.5 ML VIAL SQ SCH ×2 (09:15→20:28)
[2019-09-18] MEDS: PANTOprazole 40 MG TAB PO SCH ×2 (09:16→20:27)
[2019-09-18] MEDS: THIAMINE HCL 100 MG TAB PO SCH (09:16)
--- NOTE | 2019-09-18 10:09 | Hospitalist Progress Note ---
Date of Service September 18, 2019 Assessment & Plan (1) Encephalopathy acute: 64 yo M admitted for AMS and hypernatremia due to vomiting, now POD #2 s/p laparoscopic cholecystectomy and with continued early satiety. Dysphagia and vomiting causing severe protein calorie malnutrition and electrolyte abnormalities: - POD2 s/p Lap amy. Surgery signed off care. - Continuing TPN via PICC today for nutrition catch up care. - Mag, Phos, BMP stable. - While vomiting has resolved, patient now with early satiety. Suspect 2/2 extended time period without solid food. - Continue TPN today, encourage PO intake and supplement with Boost BID. - If patient eats fairly well tomorrow will suspect that he will self-improve at home and may be able to d/c tomorrow to home. Acute vs Chronic Delirium: - AAOx3 with waxing and waning conversational confusion. - Head CT showing no acute intracranial abnormalities. - Patient has been in hospital for several days at this point and sometimes waxes and wanes with level of alertness, though this is much improved since resolution of hypernatremia as above. - Suspect some element of delirium due to malnutrition, new environment, poor sleep in hospital. Hypovolemic Hypernatremia, resolved: - Poor oral intake over a week before admission per . - Na 166 and clinically hypovolemic on admission; 138 now s/p gradual rehydration. SHAGGY, resolved: - Cr 3.74, BUN 93, ratio 24 on admission. Cr improved to 0.77 . - Trend BMP as above due to TPN, avoid nephrotoxic meds. Elevated Troponin, resolved: - Trop 0.13 on admission, peaked at 0.15, with quick downtrend. - EKG without ST or T wave changes. - Possibly secondary to tachycardia and dehydration which have since resolved. Leukocytosis, resolved: - WBC elevated to 13 on admission, has since normalized. - BCx x2 with no growth, UCx with alpha strep, likely contaminant and without urinary symptoms. - CXR showing no acute process. - Suspect secondary to volume contraction. Elevated Bilirubin, resolved: - T bili 1.7 on admission, down to 0.5. - POD1 s/p lap amy. Hypoalbuminemia: - Albumin level 2.6 on admission. - Likely related to protein calorie malnutrition in setting of reduced PO intake . - TPN as above. PUD: - Continue pantoprazole BID. - Continue carafate QID. HTN: - Hold amlodipine given NPO. Normotensive at this time. - Hold losartan in setting of SHAGGY . DVT ppx: Heparin resumed FEN/GI: regular diet + TPN, Boost Dispo: home pending improvement of Oral caloric intake Code Status: Full Code (2) Hypertension: (3) SHAGGY (acute kidney injury): (4) Elevated troponin: (5) Elevated WBC count: Admission and Anticipated Discharge Date Admission Date: September 09, 2019 Supervising Physician Co-Signing Physician Notes I also saw the patient with the resident physician this afternoon. I agree with the impression and plan as noted above. Upon our examination in the early afternoon, he is resting comfortably in bed. He has no complaints. He notes that he ate " a little bit" of his lunch; looks like he was still getting a soft mechanical diet; seems that his appetite is improving somewhat. Hyppernatremia -improved; stable. severe protein calorie malnutrition -encourage p.o.; add boost; hopeful that his appetite will improve the farther he gets from his surgery. Persistent feeding intolerance / vomiting -probably multifactorial, and hopeful that with peptic ulcer disease now well treated and gallbladder addressed, his appetite will improve. We did discuss that sometimes it takes several weeks post cholecystectomy to regain full appetite. Encourage the p.o. nutritional supplements until his appetite has fully returned. metabolic encephalopathy -seems to be improving; monitor Subjective Patient without acute events overnight. No more reported nausea or vomiting, however has a sensation of early satiety and "isn't very hungry". Ate about half of his cheerios this AM and about a quarter of his lunch. No constipation or diarrhea, no chest pain or palpitations, no abdominal pain. Review of Systems Review of Systems: All systems reviewed & are unremarkable except as noted in Subjective Physical Exam Constitutional: WD/WN, vitals as above Eyes: PERRL, conjunctivae normal, anicteric sclerae ENMT: external ear and nose normal, oropharynx normal Neck: normal visual inspection Respiratory: normal respiratory effort, lungs clear to auscultation Cardiovascular: RRR, no murmur, no edema Gastrointestinal (Abdomen): normal bowel sounds, soft, nontender, no hepatosplenomegaly Musculoskeletal: no cyanosis or clubbing, extremities motor strength 5/5 Skin: no rashes, warm and dry several 2cm incisions on abdomen, no purulent drainage, no serosanguinous drainage. steri-strips in place. Neurologic: AAOx3, normal speech. PERRLA, EOMI, no nystagmus. Normal visual acuity bilaterally. Bilateral UE, LE, and face without sensory or motor deficits. DTRs normal. II- XII intact bilaterally. No pronator drift. No tremor. No ataxia. Psychiatric: A+Ox3, euthymic affect Results & Data Results & Data ([facility]) Vital Signs (Past 12 Hours) Vital Signs Temp Pulse Pulse Resp BP Pulse Ox 09/18/19 07:34 36.8 C 87 16 108/63 96 09/18/19 00:42 37.2 C 57 L 14 124/66 94 Resident Activity Tracking Resident Involvement: Resident Care Provided Care Provided: Adult Hospital Medicine
--- NOTE | 2019-09-18 10:59 | XRay Report ---
XR chest 1V portable CLINICAL HISTORY: confirm PICC placement tube position COMPARISON STUDY: 09/14/2019 FINDINGS: The right-sided PICC catheter is now in the inferior aspect of the right internal jugular v ein. No evidence for pneumothorax. Lungs remain grossly clear. IMPRESSION: Right-sided PICC catheter appears to been pulled back and the tip now is in the right in ternal jugular vein. The lungs remain clear with no evidence for pneumothorax. ACT 112: Negative or not required by law. The above report was generated using voice recognition software. It may contain grammatical, syntax or spelling errors. Electronically signed by: Jaylan Metzger M.D. 09/18/2019 10:57 AM
[2019-09-18] MEDS: Custom Central Pn 2,000 ML in TPN BAG 0 ML IV SCH (13:45)
[2019-09-18] MEDS ORDERED: Custom Central Pn 2,000 ML in TPN BAG 0 ML IV SCH (16:00)
[2019-09-19] MEDS: SUCRALFATE 1 GM/10 ML UDC PO SCH ×4 (07:44→21:41)
[2019-09-19 07:46] LABS: Hemoglobin 10.2 g/dL (14.0-18.0); Mean Corpuscular Hgb Conc 32.9 g/dL (32-36); Mean Corpuscular Volume 97.2 fL (80-100); Mean Platelet Volume 11.4 fL (7.4-10.4); Nucleated RBC # (auto) 0.02 K/uL (0-0); Nucleated RBC % (auto) 0.2 %; Platelet Count 294 K/uL (130-400); RDW Coefficient of Variation 15.9 % (11.5-14.5); RDW Standard Deviation 54.2 fL (36.4-46.3); Red Blood Count 3.19 M/uL (4.7-6.1); White Blood Count 9.49 K/uL (4.8-10.8)
[2019-09-19 08:20] LABS: BUN Creatinine Ratio 32.6 (10-20); Calcium 9.4 mg/dl (8.5-10.1); Creatinine Clr Calc Pharmacy 84.4 ml/min; Est GFR (African American) 108.5; Est GFR (Non-African American) 93.6; Magnesium 2.1 mg/dl (1.8-2.4); Phosphorus 3.7 mg/dl (2.5-4.9); Potassium 3.2 mmol/L (3.5-5.1)
[2019-09-19] MEDS: PANTOprazole 40 MG TAB PO SCH ×2 (08:34→21:41)
[2019-09-19] MEDS: FOLIC ACID 1 MG TAB PO SCH (08:35)
[2019-09-19] MEDS: POLYETHYLENE (MIRALAX) 17 GM PACK PO SCH ×3 (08:35→21:41)
[2019-09-19] MEDS: AMLODIPINE BESYLATE 5 MG TAB PO SCH (08:35)
[2019-09-19] MEDS: THIAMINE HCL 100 MG TAB PO SCH (08:35)
[2019-09-19] MEDS: ASPIRIN 81 MG ECTAB PO SCH ×2 (08:35→08:46)
[2019-09-19] MEDS: HEPARIN SOD 5,000 UNIT/0.5 ML VIAL SQ SCH ×2 (08:36→21:41)
--- NOTE | 2019-09-19 11:34 | Hospitalist Progress Note ---
Date of Service September 19, 2019 Assessment & Plan (1) Encephalopathy acute: 64 yo M admitted for AMS and hypernatremia due to vomiting, now POD #3 s/p laparoscopic cholecystectomy and with continued early satiety. Dysphagia and vomiting causing severe protein calorie malnutrition and electrolyte abnormalities: - POD3 s/p Lap amy. Surgery signed off care. - Mag, Phos, BMP stable. - While vomiting has resolved, patient now with early satiety. Suspect 2/2 extended time period without solid food. - TPN d/c'ed today as patient ate about half of solid food. - Suspect the early satiety will take some time to resolve as patient's surgical sites heal. - Will discontinue PICC as patient is tolerating oral intake fairly well. Acute vs Chronic Delirium: - AAOx3 with waxing and waning conversational confusion. - Head CT/MRI/MRA showing no acute intracranial abnormalities. - UA ordered and pending for r/o infectious causes. No intraabdominal findings suggestive of abdominal infection. No pneumonia on CXR. - Patient has been in hospital for several days at this point and sometimes waxes and wanes with level of alertness, though this is much improved since resolution of hypernatremia as above. - Suspect some element of delirium due to malnutrition, new environment, poor sleep in hospital. Hypovolemic Hypernatremia, resolved: - Poor oral intake over a week before admission per . - Na 166 and clinically hypovolemic on admission; 138 now s/p gradual rehydration. - Encourage PO hydration. SHAGGY, resolved: - Cr 3.74, BUN 93, ratio 24 on admission. Cr improved to 0.79. - Will require BMP follow up in outpatient setting to ensure good PO intake. Elevated Troponin, resolved: - Trop 0.13 on admission, peaked at 0.15, with quick downtrend. - EKG without ST or T wave changes. - Possibly secondary to tachycardia and dehydration which have since resolved. Leukocytosis, resolved: - WBC elevated to 13 on admission, has since normalized. - BCx x2 with no growth, UCx with alpha strep, likely contaminant and without urinary symptoms. - CXR showing no acute process. - Suspect secondary to volume contraction. Elevated Bilirubin, resolved: - T bili 1.7 on admission, down to 0.5. - POD3 s/p lap amy. Hypoalbuminemia: - Albumin level 2.6 on admission. - Likely related to protein calorie malnutrition in setting of reduced PO intake . - TPN for several days as above, d/c'ed today. PUD: - Continue pantoprazole BID. - Continue carafate QID. HTN: - Hold amlodipine given NPO. Normotensive at this time. - Hold losartan in setting of SHAGGY . DVT ppx: Heparin resumed FEN/GI: regular diet, Boost BID Dispo: home pending improvement of Oral caloric intake Code Status: Full Code (2) Hypertension: (3) SHAGGY (acute kidney injury): (4) Elevated troponin: (5) Elevated WBC count: Admission and Anticipated Discharge Date Admission Date: September 09, 2019 Supervising Physician Co-Signing Physician Notes I saw the patient current resident physician. Agree the impression and plan as noted above. Upon examination this morning, the patient's appetite and intake seems to be improving. He is oriented but somewhat evasive answering the questions. I do not think it is deliberate -but I am not sure what his baseline mental status is. Could be reveal of early dementia exacerbated by the hospital setting; there would be no other obvious source for acute mental status change (neuroimaging was normal this work-up, no obvious infection, no metabolic abnormalities at current). is coming in later today; will reach out to her to discuss and she may be able to better help us in terms of where the patient's current status is compared to his baseline. Hyppernatremia -improved; stable. severe protein calorie malnutrition -continue p.o. Supplements. Can discontinue PICC line and TPN. Persistent feeding intolerance / vomiting -vomiting has resolved and food intolerance is improving. metabolic encephalopathy -is initial metabolic abnormalities have been corrected but there still remains a mild apparent change in his cognitive dysfunction. Will await input from family as we did try to establish how it appears now to his baseline. We will recheck urinalysis just to exclude occult urinary infection. Subjective Overnight patient fell out of bed, hitting his shoulder. Did not hit his head, did not lose consciousness, fall was due to rolling. This AM was eating breakfast during my interview, and on repeat visit this afternoon patient did not recall his breakfast until I mentioned he had toast, to which he recalled the jelly on the toast. Sometimes evasive of questions and conversationally confused. When asked what his favorite food is he stated "I don't know". Denies chest pain, SOB, nausea or vomiting, constipation or diarrhea, fevers or chills, dizziness or headaches. When speaking with the on the phone she informed me that he is usually very "with it", and performs all ADLs independently. Up until this admission he was not confused per . Review of Systems Review of Systems: All systems reviewed & are unremarkable except as noted in Subjective Physical Exam Constitutional: WD/WN, vitals as above Eyes: PERRL, conjunctivae normal, anicteric sclerae ENMT: external ear and nose normal, oropharynx normal Neck: normal visual inspection Respiratory: normal respiratory effort, lungs clear to auscultation Cardiovascular: RRR, no murmur, no edema Gastrointestinal (Abdomen): normal bowel sounds, soft, nontender, no hepatosplenomegaly Musculoskeletal: no cyanosis or clubbing, extremities motor strength 5/5 Skin: no rashes, warm and dry several 2cm incisions on abdomen, no purulent drainage, no serosanguinous drainage. steri-strips in place. Neurologic: AAOx3, normal speech. PERRLA, EOMI, no nystagmus. Normal visual acuity bilaterally. Bilateral UE, LE, and face without sensory or motor deficits. DTRs normal. II- XII intact bilaterally. No pronator drift. No tremor. No ataxia. Conversationally confused. Psychiatric: A+Ox3, euthymic affect Results & Data Results & Data ([facility]) Vital Signs (Past 12 Hours) Vital Signs Temp Pulse Resp BP Pulse Ox 09/19/19 07:24 36.7 C 92 H 18 127/74 96 09/19/19 00:00 36.6 C 102 H 24 122/74 98 Resident Activity Tracking Resident Involvement: Resident Care Provided Care Provided: [facility]
[2019-09-19 13:21] LABS: Appearance Urine Clear (Clear); Bacteria Urine Automated Negative (Negative); Bilirubin Urine Negative (Negative); Blood Urine Trace (Negative); Color Urine Yellow; Glucose Urine UA Negative (Negative); Ketones Urine Negative (Negative); Leukocyte Esterase Urine Negative (Negative); Nitrite Urine Negative (Negative); Protein Urine Negative (Negative); RBC Urine Automated 0-4 /hpf (0-4); Specific Gravity Urine 1.018 (1.000-1.030); Urobilinogen Urine Negative (Negative)
[2019-09-20 06:30] LABS: Basophils # (auto) 0.03 K/uL (0-0.2); Basophils % (auto) 0.3 %; Eosinophils # (auto) 0.27 K/uL (0-0.5); Eosinophils % (auto) 3.1 %; Hematocrit (blood only) 27.6 % (42-52); Hemoglobin 8.8 g/dL (14.0-18.0); Immature Granulocytes # (auto) 0.11 K/uL (0.00-0.02); Immature Granulocytes % (auto) 1.3 %; Lymphocytes # (auto) 1.92 K/uL (1.2-3.4); Mean Corpuscular Hgb Conc 31.9 g/dL (32-36); Mean Corpuscular Volume 97.2 fL (80-100); Mean Platelet Volume 11.2 fL (7.4-10.4); Monocytes # (auto) 0.53 K/uL (0.11-0.59); Monocytes % (auto) 6.1 %; Neutrophils # (auto) 5.85 K/uL (1.4-6.5); Neutrophils % (auto) 67.2 %; Platelet Count 278 K/uL (130-400); RDW Coefficient of Variation 15.9 % (11.5-14.5); RDW Standard Deviation 54.5 fL (36.4-46.3); Red Blood Count 2.84 M/uL (4.7-6.1); White Blood Count 8.71 K/uL (4.8-10.8)
[2019-09-20 07:02] LABS: Albumin Level 2.3 gm/dl (3.4-5.0); BUN Creatinine Ratio 30.4 (10-20); Calcium 8.8 mg/dl (8.5-10.1); Creatinine Clr Calc Pharmacy 86.6 ml/min; Est GFR (African American) 109.6; Est GFR (Non-African American) 94.6; Potassium 3.4 mmol/L (3.5-5.1)
[2019-09-20 07:04] LABS: Albumin Globulin Ratio 0.5 (0.9-2); Bilirubin,Total 0.6 mg/dl (0.2-1); Globulin 4.5 gm/dl (2.5-4.0); Total Protein 6.8 gm/dl (6.4-8.2)
[2019-09-20] MEDS: THIAMINE HCL 100 MG TAB PO SCH (08:23)
[2019-09-20] MEDS: PANTOprazole 40 MG TAB PO SCH (08:23)
[2019-09-20] MEDS: ASPIRIN 81 MG ECTAB PO SCH (08:24)
[2019-09-20] MEDS: FOLIC ACID 1 MG TAB PO SCH (08:24)
[2019-09-20] MEDS: AMLODIPINE BESYLATE 5 MG TAB PO SCH (08:24)
[2019-09-20] MEDS: HEPARIN SOD 5,000 UNIT/0.5 ML VIAL SQ SCH (08:24)
[2019-09-20] MEDS: SUCRALFATE 1 GM/10 ML UDC PO SCH ×3 (08:24→16:15)
[2019-09-20] MEDS: POLYETHYLENE (MIRALAX) 17 GM PACK PO SCH (08:28)
--- NOTE | 2019-09-20 16:01 | Discharge Summary ---
Date of Service September 20, 2019 Admission HPI Per Admitting Provider 64 yo M with PMH HTN, refeeding syndrome, recently discharged from [facility] on 08/27 brought back to the ED by his for worsening confusion and altered mental status. She states that approximately 1 week ago he started to seem a little off but progressively was eating and drinking less and less. She states he did not complain of any nausea, vomiting, problems urinating while he was still communicative. Primary Care Provider: Lobito Orourke Jr, DO Admission Exam Per Admitting Provider Constitutional: + cachectic and + altered mental status Eyes: Staring at ceiling with eyes wide open and "glazed over" appearance Respiratory: Somewhat labored breathing, no audible wheezing, no respiratory distress, no crackles, wheezes or rhonchi noted on exam Cardiovascular: Rate/Rhythm: regular rhythm and + tachycardic Heart Sounds: normal S1 and normal S2; no gallop, no murmur and no cardiac rub Extremities: no calf tenderness and no pedal edema Gastrointestinal (Abdomen): Inspection/Auscultation: abdomen normal to inspection and normal bowel sounds; abdomen not distended Percussion/Palpation: + abdomen tender and abdomen soft; no guarding and abdomen not rigid Neurologic: Appears obtunded and confused but able to follow basic commands Principal Diagnosis chronic cholecystitis s/p cholecystectomy hypernatremia Discharge Exam Constitutional WD/WN, vitals as above Eyes PERRL, conjunctivae normal, anicteric sclerae ENMT external ear and nose normal, oropharynx normal Neck normal visual inspection Respiratory normal respiratory effort, lungs clear to auscultation Cardiovascular RRR, no murmur, no edema Gastrointestinal (Abdomen) normal bowel sounds, soft, nontender, no hepatosplenomegaly Musculoskeletal no cyanosis or clubbing, extremities motor strength 5/5 Skin no rashes, warm and dry Psychiatric A+Ox3, euthymic affect Discharge Data Allergies Allergy/AdvReac Type Severity Reaction Status Date / Time bee venom protein (honey bee) Allergy Severe ANAPHYLACTIC Verified 09/09/19 02:21 REACTION A CHILD Consultations 09/09/19 03:36 ED Decision to Admit Stat 09/09/19 05:56 Consult Nephrology Routine 09/11/19 14:00 Consult General Surgery Routine 09/11/19 14:03 Consult Gastroenterology Routine 09/20/19 14:10 Consult [facility] photostatic copy maker Routine Procedures Performed Operation Date: 09/15/19 14:15 Actual Procedures p Laparoscopic Cholecystectomy,(Not Applicable) - Arvin Patel MD s Ventral Hernia Repair(Not Applicable) - Arvin Patel MD Ordered Studies 09/09/19 09:04 CT head/brain wo con Stat 09/09/19 09:40 MR angio head wo con Stat MR brain wo con Stat 09/09/19 09:59 MR venography head wo con Stat 09/11/19 09:00 FL video swallow Routine 09/11/19 15:19 US abdomen limited Routine Hospital Course (1) Encephalopathy acute: 64 yo M admitted for AMS and hypernatremia due to vomiting, now POD #4 s/p laparoscopic cholecystectomy. Dysphagia and vomiting causing severe protein calorie malnutrition and electrolyte abnormalities: - POD4 s/p Lap amy. Surgery signed off care. Will have follow up in 2 weeks. - Mag, Phos, BMP stable. - While vomiting resolved, patient with early satiety until earlier today. - Tolerated food well and desires discharge home. - Refuses home health PT/OT despite recommendations from care management, hospitalist team, , and physical therapists in-house. For discharge home with self-care and given warning signs to call his PCP and 911. Acute vs Chronic Delirium: - AAOx3 with waxing and waning conversational confusion at nighttimes. - Head CT/MRI/MRA showing no acute intracranial abnormalities. - UA without signs of infection. No intraabdominal findings suggestive of abdominal infection. No pneumonia on CXR. - Suspect some element of delirium due to malnutrition, new environment, poor sleep in hospital. Hypovolemic Hypernatremia, resolved: - Poor oral intake over a week before admission per . - Na 166 and clinically hypovolemic on admission; 138 on discharge s/p gradual rehydration. - Encourage PO hydration at home. SHAGGY, resolved: - Cr 3.74, BUN 93, ratio 24 on admission. Cr improved to 0.79. - Will require BMP follow up in outpatient setting to ensure good PO intake. Elevated Troponin, resolved: - Trop 0.13 on admission, peaked at 0.15, with quick downtrend. - EKG without ST or T wave changes. - Possibly secondary to tachycardia and dehydration which have since resolved. Leukocytosis, resolved: - WBC elevated to 13 on admission, has since normalized. - BCx x2 with no growth, UCx with alpha strep, likely contaminant and without urinary symptoms. - CXR showing no acute process. - Suspect secondary to volume contraction. Elevated Bilirubin, resolved: - T bili 1.7 on admission, down to 0.5. - POD4 s/p lap amy. Hypoalbuminemia: - Albumin level 2.6 on admission. - Likely related to protein calorie malnutrition in setting of reduced PO intake . - TPN for several days as above, d/c'ed 09/18. PUD: - Completed 6 week course of carafate and pantoprazole. - Avoid NSAIDs. HTN: - Hold amlodipine given NPO. Normotensive at this time. - Hold losartan in setting of SHAGGY . Dispo: home with self-care (2) Hypertension: (3) SHAGGY (acute kidney injury): (4) Elevated troponin: (5) Elevated WBC count: Total Time Total Time Spent Total Time Spent (In Minutes): I spent 40 minutes in seeing the patient, discussion with the patient, reviewing lab work, and documentation. Discharge Plan Discharge Items Patient Disposition: Home - Self-Care Reason For Visit: DEHYDRATION, AMS Discharge Diagnosis: chronic cholecystitis Activity: Per Instructions section Non-emergency contact: Primary Care Provider and Surgeon Call non-emergency contact if: you have any medication questions, your symptoms worsen and your temperature is above 101 Follow-up/Referrals: Lobito Orourke Jr, DO [Primary Care Provider] - 09/26/19 11:00 am (You have a follow up appt for WednesdaySeptember 25 at 1100am. This is will be a TELEMED appt, please call the office with any questions you have about this appt. [phone]. ) Arvin Patel MD [Physician] - (If not already scheduled, please call the office to schedule a two week follow- up appointment with Dr. Patel. Office number ) Diet: Regular Addtl Attending Provider Instructions: You were admitted to the hospital for nausea and vomiting. You were found during your admission to have an inflamed, sick gallbladder and General Surgery felt it would help your symptoms to take it out. After your gallbladder was taken out, you began to feel better and could tolerate food. While you were getting up to eating well, we fed you through your IV with liquid electrolytes and calories. You were eating better and we felt safe to discharge you home. If you begin to feel weak again please call your primary care doctor right away; this may mean you need physical therapy at home. You can take tylenol at home as need ed for pain in your abdomen. You have a follow up appointment with Dr. Orourke September 25 at 1100am. This is will be a TELEMEDICINE appointment; please call the office with any questions you have about this appointment . Please call Dr Patel (the surgeon)'s office at to schedule a follow up appointment for your gallbladder removal. If you have symptoms such as chest pain, shortness of breath, nausea or vomiting, fevers over 101 degrees Fahrenheit, or changes in your mental status, please seek urgent medical evaluation. Addtl Insulator Helper Provider Instructions: Post-Surgical ~Discharge Instructions Activity Recommendations: - lifting limitation: (25 pounds for 4 weeks), - exercise/sex/sports limit: (nonstrenuous for 2 weeks or until cleared by surgeon), - driving or machine use limit: (none for 1 week, or until pain free), - Shower/bathe limit: (may shower) Diet: - Resume previous diet SPECIAL CARE INSTRUCTIONS: - May shower. Let water run over area and pat dry. - Leave steri strips on for one week and then remove. - Call the surgeon's office with any questions or concerns - - (ex. temperature higher than 101 degrees F, excessive bleeding or pain). MEDICATIONS: - Resume previous medications unless instructed otherwise by your surgeon. - You may take extra strength Tylenol as needed for mild pain - 500 mg of Tylenol every 6 hours as needed FOLLOW UP VISIT: - If not already scheduled, please call the office to schedule a two week follow-up appointment. Office number Pending Studies at Discharge: No Stand-Alone Forms: My [employer], Smoking Cessation Medications and DC Order Prescriptions: Continued amlodipine 10 mg tablet 10 mg PO DAILY RF: 0 epinephrine [EpiPen] 0.3 mg/0.3 mL Auto-Injector 0.3 mg IM DIRECTED PRN (Reason: Allergic Reaction) RF: 0 losartan 100 mg tablet 100 mg PO DAILY RF: 0 pantoprazole 40 mg tablet,delayed release (DR/EC) 40 mg PO BID 30 Days Qty: 60 RF: 0 potassium chloride 20 mEq/15 mL liquid 20 meq PO DAILY Qty: 1200 RF: 0 methocarbamol 750 mg tablet 750 mg PO BID PRN (Reason: Back Pain) Qty: 0 RF: 0 Discharge Orders: Discharge Order (Routine); Ordered 09/20/19 Ordered By: Jemma Hobbs Admission Data Admit Date/Time: 09/09/19 04:35 Attending Provider: Ronal Phillip Admit Provider: Kandis Todd Primary Care Provider: Lobito Orourke Jr Other Providers: Rose Delcid ; Anselmo Bland ; Joann Bejarano ; Lopez Foreman ; Karl Puentes Other Interventions: Discharge Summary Assessment (RN) Last Done: 09/20/19 16:04 Supervising Physician Co-Signing Physician Notes I saw the patient current resident physician. Agree the impression and plan as noted above. Upon examination this afternoon, the patient is without complaints. He is looking forward to discharge. He declines inpatient rehabilitation and he also declines any home services to include physical therapy. We did talk in a fair amount of detail as to the benefits of home physical therapy; he just is not interested at this time. Hyppernatremia -improved; stable. severe protein calorie malnutrition -continue p.o. Supplements. Persistent feeding intolerance / vomiting -vomiting has resolved and food intolerance is improving. metabolic encephalopathy -resolved. There probably was some sundowning; there is no noted history of dementia previously, although in discussing with the she had noted it more in the evenings. She will monitor this after he returns home and will follow-up with PCP. Anemia -no evidence of acute bleeding. Probably multifactorial including postoperative and secondary to decreased caloric intake. Will need a recheck after follow-up with PCP. Resident Activity Tracking Resident Involvement: Resident Care Provided Care Provided: Adult Hospital Medicine
== END 2019-09-20 19:21 | disposition home or self-care (01) | DRG 417 ==
LOC: ED 01:50 → SUATTDRO 04:35 → 2S 04:35 → 3W 09-16 16:43 → 3N 09-19 00:37

== ENCOUNTER 2019-10-20 18:15 | Inpatient (IN) ==
[2019-10-20] MEDS ORDERED: SODIUM CHLORIDE 0.9% 1000ML 500 ML IV ONE ×2 (18:25→19:27)
--- NOTE | 2019-10-20 18:32 | Emergency Department Note ---
History of Present Illness General Chief complaint: Altered Mental Status Stated complaint: AMS Time Seen by Provider: 10/20/19 18:17 Source: EMS Mode of arrival: EMS Limitations: altered mental status History of Present Illness Provider complaint: Altered mental status Onset (ago): minute(s) Location: head Severity: severe Pain Consistency: + constant Relieved By: + none Associated symptoms: no fever/chills This is a 64-year-old male brought in by EMS for evaluation of altered mental status. The patient apparently was found by his on the ground and was not responding to her. She states that he has been on a decline recently over the past several days and has not been eating or drinking very much. He was admitted previously in August and September to the hospital for various issues includi ng kidney failure. The paramedics states that he has just been staring without answering questions. His blood pressure was slightly low with 101 systolic and so they gave him normal saline IV. No history of fever. Home Medications Home Medications Medication Instructions Recorded Confirmed Type amlodipine 10 mg PO DAILY 08/14/19 10/20/19 History epinephrine [EpiPen] 0.3 mg IM DIRECTED PRN 08/14/19 10/20/19 History losartan 100 mg PO DAILY 08/14/19 10/20/19 History potassium chloride 20 meq PO DAILY #1200 ml 08/28/19 10/20/19 Rx acetaminophen [Tylenol Extra 500 mg PO QID PRN 10/20/19 10/20/19 History Strength] omeprazole 40 mg PO BID 10/20/19 10/20/19 History Allergies Allergy/AdvReac Type Severity Reaction Status Date / Time bee venom protein (honey bee) Allergy Severe ANAPHYLACTIC Verified 10/20/19 21:07 REACTION A CHILD Past Med/Surg History Medical History SHAGGY (acute kidney injury) Chronic back pain Electrolyte abnormality Clinically consistent with dehydration, NSAID use, uric acid nephropathy, and ATN. Tolerating IVF well. Creatinine continues to improve. Uremia also improving with management. Free water deficit persist (~4.5 L). Unable to tolerate medications or fluids by mouth. IVF switched to 1/4 NaCl + 20 KCl @ 200 ml/h yesterday evening. Urine appropriately alkaline. Noted UA crystals in urine yesterday AM. Serum UA level improving. Hypokalemia and hypophosphatemia noted. magnesium falling. K phos x 30 mmol IV ordered. Will continue to monitor labs twice daily and replace as needed. No adjustment to IVF infusion at this time. Hematemesis Hypertension Thrombocytopenia Vomiting Surgical History H/O right hemicolectomy Social History Smoking Status: Former smoker Second Hand Exposure: No; Hx Alcohol Use: No Hx Substance Use: No Preferred Language: Urdu Communication Ability: Impaired [employer] Required: No Beliefs That Will Affect Care: None Current Living Situation: Spouse Feels Safe at Home: Yes Review of Systems See HPI for pertinent positives & negatives. Unobtainable due to cognitive status Physical Exam Vital Signs Vital Signs - 24 hr 10/20/19 18:20 10/20/19 18:45 10/20/19 18:46 Temperature 37 C Temperature Source Oral Pulse Rate 113 H 101 H 100 H Pulse Rate from SpO2 Sensor 101 H Pulse Rhythm Regular Pulse Strength Normal Respiratory Rate 18 20 15 Respiratory Effort / Characteristics Non-Labored Spontaneous Respiratory Depth Normal Respiratory Pattern Regular Blood Pressure 103/81 104/77 Blood Pressure Mean 88 82 Blood Pressure Position Sitting Pulse Oximetry 95 95 Oxygen Delivery Method Room Air Sepsis Recent Fever Within 48 Hours No Sepsis New/Unexplained Change in Mental Status No Sepsis Action Taken by Nursing No Action Required 10/20/19 19:00 10/20/19 19:15 10/20/19 19:37 Temperature Temperature Source Pulse Rate 99 H 94 H 89 Pulse Rate from SpO2 Sensor Pulse Rhythm Pulse Strength Respiratory Rate 23 21 20 Respiratory Effort / Characteristics Respiratory Depth Respiratory Pattern Blood Pressure Blood Pressure Mean Blood Pressure Position Pulse Oximetry Oxygen Delivery Method Sepsis Recent Fever Within 48 Hours Sepsis New/Unexplained Change in Mental Status Sepsis Action Taken by Nursing 10/20/19 19:41 10/20/19 19:45 10/20/19 19:51 Temperature Temperature Source Pulse Rate 90 92 H Pulse Rate from SpO2 Sensor Pulse Rhythm Pulse Strength Respiratory Rate 22 16 Respiratory Effort / Characteristics Non-Labored Spontaneous Respiratory Depth Respiratory Pattern Blood Pressure 123/87 Blood Pressure Mean 97 Blood Pressure Position Pulse Oximetry 98 Oxygen Delivery Method Room Air Sepsis Recent Fever Within 48 Hours Sepsis New/Unexplained Change in Mental Status Sepsis Action Taken by Nursing 10/20/19 20:00 10/20/19 20:01 10/20/19 20:03 Temperature Temperature Source Pulse Rate 86 89 Pulse Rate from SpO2 Sensor Pulse Rhythm Pulse Strength Respiratory Rate 22 18 20 Respiratory Effort / Characteristics Non-Labored Spontaneous Respiratory Depth Respiratory Pattern Blood Pressure 130/97 Blood Pressure Mean 104 Blood Pressure Position Pulse Oximetry 98 Oxygen Delivery Method Room Air Sepsis Recent Fever Within 48 Hours Sepsis New/Unexplained Change in Mental Status Sepsis Action Taken by Nursing 10/20/19 20:15 10/20/19 20:30 10/20/19 20:31 Temperature Temperature Source Pulse Rate 86 78 87 Pulse Rate from SpO2 Sensor Pulse Rhythm Pulse Strength Respiratory Rate 18 18 20 Respiratory Effort / Characteristics Non-Labored Spontaneous Respiratory Depth Respiratory Pattern Blood Pressure 129/82 Blood Pressure Mean 107 Blood Pressure Position Pulse Oximetry 97 Oxygen Delivery Method Room Air Sepsis Recent Fever Within 48 Hours Sepsis New/Unexplained Change in Mental Status Sepsis Action Taken by Nursing 10/20/19 20:32 10/20/19 20:45 10/20/19 20:54 Temperature Temperature Source Pulse Rate 80 91 H 82 Pulse Rate from SpO2 Sensor 82 Pulse Rhythm Pulse Strength Respiratory Rate 17 24 24 Respiratory Effort / Characteristics Respiratory Depth Respiratory Pattern Blood Pressure 130/93 Blood Pressure Mean 97 Blood Pressure Position Pulse Oximetry 97 Oxygen Delivery Method Sepsis Recent Fever Within 48 Hours Sepsis New/Unexplained Change in Mental Status Sepsis Action Taken by Nursing 10/20/19 21:00 10/20/19 21:01 10/20/19 21:02 Temperature Temperature Source Pulse Rate 82 80 79 Pulse Rate from SpO2 Sensor 90 81 78 Pulse Rhythm Pulse Strength Respiratory Rate 18 15 24 Respiratory Effort / Characteristics Non-Labored Spontaneous Respiratory Depth Respiratory Pattern Blood Pressure 131/85 Blood Pressure Mean 88 Blood Pressure Position Pulse Oximetry 98 97 97 Oxygen Delivery Method Sepsis Recent Fever Within 48 Hours Sepsis New/Unexplained Change in Mental Status Sepsis Action Taken by Nursing 10/20/19 21:15 10/20/19 21:30 10/20/19 21:43 Temperature Temperature Source Pulse Rate 83 82 Pulse Rate from SpO2 Sensor 81 Pulse Rhythm Pulse Strength Respiratory Rate 20 22 18 Respiratory Effort / Characteristics Non-Labored Spontaneous Respiratory Depth Respiratory Pattern Blood Pressure 121/92 Blood Pressure Mean 102 Blood Pressure Position Pulse Oximetry 98 97 Oxygen Delivery Method Room Air Sepsis Recent Fever Within 48 Hours Sepsis New/Unexplained Change in Mental Status Sepsis Action Taken by Nursing The physical exam is limited due to the patient's condition. Constitutional: Vital signs reviewed. Eyes: Pupils are equal round reactive to light. Conjunctiva are noninjected. HENT: No midline tenderness to cervical spine. Mucous membranes are extremely dry. Respiratory: Clear to auscultation bilaterally. Breath sounds are equal bilaterally. Cardiovascular: Tachycardic. Heart rate 103. GI: Soft, nondistended and nontender. Bowel sounds are present. Musculoskeletal: No hip tenderness. Full range of motion at all joints of the extremities without indication of pain. IV in the right ankle. Integumentary: No cyanosis. Neurological: The patient is staring but does not follow commands. He does appear to move all extremities. Psychiatric: Unable to assess. Course Administered Medications Discontinued Medications Sodium Chloride (Nss 1000ml) 500 mls @ 999 mls/hr IV .Q31M ONE Stop: 10/20/19 18:55 Last Infusion: 10/20/19 20:22 Dose: 0 mls/hr Documented by: [id number] Admin: 10/20/19 19:03 Dose: 999 mls/hr Documented by: [id number] Sodium Chloride (Nss 1000ml) 500 mls @ 999 mls/hr IV .Q31M ONE Stop: 10/20/19 19:57 Last Admin: 10/20/19 20:22 Dose: 999 mls/hr Documented by: [id number] Critical Care Time Critical Care Time: Yes Total Critical Care Time: 45 I have personally spent approximately 45 minutes of critical care time in the direct management of this patient. This includes bedside care, interpretation of diagnostic studies, and testing, discussion with consultants, patient, and family members, and other required patient management activities. These minutes are in excess of all separately billable procedures. Medical Decision Making Differential Diagnosis Encephalopathy, hyperammonemia, dehydration, SHAGGY, electrolyte abnormality, metabolic derangement, ICH Medical Records Attestation: I reviewed the patient's medical records. The patient was admitted in August for SHAGGY. He was admitted again last month for encephalopathy and altered mental status. He underwent cholecystectomy. Home Medications Current Medication List: was personally reviewed by me Laboratory Data Attestation: I reviewed the patient's lab results. Result diagrams: 10/20/19 19:06 10/20/19 19:06 Lab Results 10/20/19 10/20/19 10/20/19 Range/Units 19:06 19:06 19:06 WBC (4.8-10.8) K/uL RBC (4.7-6.1) M/uL Hgb (14.0-18.0) g/dL POC Hgb (14.0-18.0) g/dl Hct (42-52) % POC Hct (42-52) % MCV (80-100) fL MCH (25-34) pg MCHC (32-36) g/dL RDW Std Deviation (36.4-46.3) fL RDW Coeff of Kaleigh (11.5-14.5) % Plt Count (130-400) K/uL Immature Gran % (Auto) % Neut % (Auto) % Lymph % (Auto) % [place] % (Auto) % Eos % (Auto) % Baso % (Auto) % Neut # (Auto) (1.4-6.5) K/uL Lymph # (Auto) (1.2-3.4) K/uL [place] # (Auto) (0.11-0.59) K/uL Eos # (Auto) (0-0.5) K/uL Baso # (Auto) (0-0.2) K/uL Immature Gran # (Auto) (0.00-0.02) K/uL Absolute Nucleated RBC (0-0) K/uL Nucleated RBC % (auto) % Platelet Estimate (Normal) Tear Drop Cells PT (9.0-12.0) Seconds INR (0.9-1.1) APTT (21.0-31.0) Seconds PTT Ratio POC Sodium (135-144) mmol/L Sodium (136-145) mmol/L POC Potassium (3.3-5.0) mmol/L Potassium (3.5-5.1) mmol/L POC Chloride (101-112) mmol/L Chloride (98-107) mmol/L Carbon Dioxide (21-32) mmol/L POC Total CO2 (24-31) mmol/L Anion Gap (3-11) POC Anion Gap (16-25) mmol/L POC BUN (7-18) mg/dl BUN (7-18) mg/dl Creatinine (0.6-1.4) mg/dl POC Creatinine (0.6-1.3) mg/dl Est Cr Clr Drug Dosing ml/min Est GFR ( Amer) Est GFR (Non-Af Amer) BUN/Creatinine Ratio (10-20) Glucose (70-99) mg/dl POC Glucose (other) (70-99) mg/dl Lactate 5.8 H* (0.4-2.0) mmol/L Calcium (8.5-10.1) mg/dl POC Ioniz Calcium Kaleb (1.12-1.32) mmol/l Magnesium (1.8-2.4) mg/dl Total Bilirubin (0.2-1) mg/dl AST (15-37) U/L ALT (12-78) U/L Alkaline Phosphatase (45-117) U/L Ammonia < 10.0 L (11-32) umol/L Total Creatine Kinase (39-308) U/L CK-MB (CK-2) (0.5-3.6) ng/ml CK/CKMB % Calc (0-3.0) Troponin I (0-0.045) ng/ml Total Protein (6.4-8.2) gm/dl Albumin (3.4-5.0) gm/dl Globulin (2.5-4.0) gm/dl Albumin/Globulin Ratio (0.9-2) Ethyl Alcohol mg/dL < 3.0 (0-3) mg/dl 10/20/19 10/20/19 10/20/19 Range/Units 19:06 19:06 19:06 WBC 13.85 H (4.8-10.8) K/uL RBC 5.11 (4.7-6.1) M/uL Hgb 15.8 (14.0-18.0) g/dL POC Hgb (14.0-18.0) g/dl Hct 54.4 H (42-52) % POC Hct (42-52) % MCV 106.5 H (80-100) fL MCH 30.9 (25-34) pg MCHC 29.0 L (32-36) g/dL RDW Std Deviation 74.3 H (36.4-46.3) fL RDW Coeff of Kaleigh 19.0 H (11.5-14.5) % Plt Count 126 L (130-400) K/uL Immature Gran % (Auto) 0.4 % Neut % (Auto) 89.0 % Lymph % (Auto) 6.9 % [place] % (Auto) 3.6 % Eos % (Auto) 0.0 % Baso % (Auto) 0.1 % Neut # (Auto) 12.32 H (1.4-6.5) K/uL Lymph # (Auto) 0.96 L (1.2-3.4) K/uL [place] # (Auto) 0.50 (0.11-0.59) K/uL Eos # (Auto) 0.00 (0-0.5) K/uL Baso # (Auto) 0.01 (0-0.2) K/uL Immature Gran # (Auto) 0.06 H (0.00-0.02) K/uL Absolute Nucleated RBC 0.20 H (0-0) K/uL Nucleated RBC % (auto) 1.4 % Platelet Estimate Decreased L (Normal) Tear Drop Cells 1+ PT 14.8 H (9.0-12.0) Seconds INR 1.4 H (0.9-1.1) APTT 29.5 (21.0-31.0) Seconds PTT Ratio 1.1 POC Sodium (135-144) mmol/L Sodium 170 H* (136-145) mmol/L POC Potassium (3.3-5.0) mmol/L Potassium 4.0 (3.5-5.1) mmol/L POC Chloride (101-112) mmol/L Chloride 129 H (98-107) mmol/L Carbon Dioxide 24 (21-32) mmol/L POC Total CO2 (24-31) mmol/L Anion Gap 16.0 H (3-11) POC Anion Gap (16-25) mmol/L POC BUN (7-18) mg/dl BUN 286 H (7-18) mg/dl Creatinine 9.74 H* (0.6-1.4) mg/dl POC Creatinine (0.6-1.3) mg/dl Est Cr Clr Drug Dosing 5.8 ml/min Est GFR ( Amer) 5.8 Est GFR (Non-Af Amer) 5.0 BUN/Creatinine Ratio 29.3 H (10-20) Glucose 191 H (70-99) mg/dl POC Glucose (other) (70-99) mg/dl Lactate (0.4-2.0) mmol/L Calcium 10.5 H (8.5-10.1) mg/dl POC Ioniz Calcium Kaleb (1.12-1.32) mmol/l Magnesium 3.4 H (1.8-2.4) mg/dl Total Bilirubin 0.8 (0.2-1) mg/dl AST 51 H (15-37) U/L ALT 55 (12-78) U/L Alkaline Phosphatase 111 (45-117) U/L Ammonia (11-32) umol/L Total Creatine Kinase (39-308) U/L CK-MB (CK-2) (0.5-3.6) ng/ml CK/CKMB % Calc (0-3.0) Troponin I 0.570 H* (0-0.045) ng/ml Total Protein 8.7 H (6.4-8.2) gm/dl Albumin 3.9 (3.4-5.0) gm/dl Globulin 4.8 H (2.5-4.0) gm/dl Albumin/Globulin Ratio 0.8 L (0.9-2) Ethyl Alcohol mg/dL (0-3) mg/dl 10/20/19 10/20/19 Range/Units 19:06 19:08 WBC (4.8-10.8) K/uL RBC (4.7-6.1) M/uL Hgb (14.0-18.0) g/dL POC Hgb 16.3 (14.0-18.0) g/dl Hct (42-52) % POC Hct 48 (42-52) % MCV (80-100) fL MCH (25-34) pg MCHC (32-36) g/dL RDW Std Deviation (36.4-46.3) fL RDW Coeff of Kaleigh (11.5-14.5) % Plt Count (130-400) K/uL Immature Gran % (Auto) % Neut % (Auto) % Lymph % (Auto) % [place] % (Auto) % Eos % (Auto) % Baso % (Auto) % Neut # (Auto) (1.4-6.5) K/uL Lymph # (Auto) (1.2-3.4) K/uL [place] # (Auto) (0.11-0.59) K/uL Eos # (Auto) (0-0.5) K/uL Baso # (Auto) (0-0.2) K/uL Immature Gran # (Auto) (0.00-0.02) K/uL Absolute Nucleated RBC (0-0) K/uL Nucleated RBC % (auto) % Platelet Estimate (Normal) Tear Drop Cells PT (9.0-12.0) Seconds INR (0.9-1.1) APTT (21.0-31.0) Seconds PTT Ratio POC Sodium 174 H* (135-144) mmol/L Sodium (136-145) mmol/L POC Potassium 4.0 (3.3-5.0) mmol/L Potassium (3.5-5.1) mmol/L POC Chloride 127 H (101-112) mmol/L Chloride (98-107) mmol/L Carbon Dioxide (21-32) mmol/L POC Total CO2 24 (24-31) mmol/L Anion Gap (3-11) POC Anion Gap 28.0 H (16-25) mmol/L POC BUN > 140 H* (7-18) mg/dl BUN (7-18) mg/dl Creatinine (0.6-1.4) mg/dl POC Creatinine 9.5 H* (0.6-1.3) mg/dl Est Cr Clr Drug Dosing ml/min Est GFR ( Amer) Est GFR (Non-Af Amer) BUN/Creatinine Ratio (10-20) Glucose (70-99) mg/dl POC Glucose (other) 185 H (70-99) mg/dl Lactate (0.4-2.0) mmol/L Calcium (8.5-10.1) mg/dl POC Ioniz Calcium Kaleb 1.07 L (1.12-1.32) mmol/l Magnesium (1.8-2.4) mg/dl Total Bilirubin (0.2-1) mg/dl AST (15-37) U/L ALT (12-78) U/L Alkaline Phosphatase (45-117) U/L Ammonia (11-32) umol/L Total Creatine Kinase 61 (39-308) U/L CK-MB (CK-2) 5.9 H (0.5-3.6) ng/ml CK/CKMB % Calc 9.7 H (0-3.0) Troponin I (0-0.045) ng/ml Total Protein (6.4-8.2) gm/dl Albumin (3.4-5.0) gm/dl Globulin (2.5-4.0) gm/dl Albumin/Globulin Ratio (0.9-2) Ethyl Alcohol mg/dL (0-3) mg/dl Imaging Data Radiologist's Impression: CT head/brain wo con CLINICAL HISTORY: 64 years-old Male with fall eval for bleed. Acute head injury status post fall TECHNIQUE: Multiple axial CT images of the head were obtained without contrast. A dose lowering technique was utilized adhering to the principles of ALARA. COMPARISON: CT cervical spine of same day, head CT 09/09/2019, brain MRI 09/09/2019 FINDINGS: No acute intracranial hemorrhage, midline shift, intracranial mass, hydrocephalus, territorial ischemia or abnormal extra-axial collection. Age- related involutional changes. Mild patchy white matter hypodensities suggest probable chronic microvascular ischemic disease. Cerebral vascular calcifications. The calvarium is intact. Minimal subcutaneous edema of the right parietal scalp. The paranasal sinuses, mastoid air cells, and middle ear cavities are clear. IMPRESSION: No acute intracranial abnormality or calvarial fracture. ACT 112: Negative or not required by law. The above report was generated using voice recognition software. It may contain grammatical, syntax or spelling errors. Electronically signed by: Aramis Vásquez M.D. 10/20/2019 7:53 PM Dictated: 10/20/191950 Transcribed: 10/20/191950 XR chest 1V portable HISTORY: 64 years-old Male SEPSIS acute sepsis COMPARISON: Chest radiograph 09/18/2019 TECHNIQUE: Portable AP view of the chest FINDINGS: Cardiomediastinal and hilar silhouettes are within normal limits. No pneumothorax, pleural effusion, airspace consolidation or overt pulmonary edema. Degenerative changes of the shoulders and spine. IMPRESSION: No acute process. ACT 112: Negative or not required by law. The above report was generated using voice recognition software. It may contain grammatical, syntax or spelling errors. Electronically signed by: Aramis Vásquez M.D. 10/20/2019 7:46 PM Dictated: 10/20/191945 Transcribed: 10/20/191945 CT cervical spine wo con CT DOSE: 981.95 mGy.cm CLINICAL HISTORY: 64 years-old Male with fall eval for injury. Acute neck pain status post fall COMPARISON: Head CT of same day TECHNIQUE: Multiple axial CT images of the cervical spine were obtained without contrast. A dose lowering technique was utilized adhering to the principles of ALARA. FINDINGS: Demineralized appearance of the bones. Layering secretions are noted within the airway. No prevertebral soft tissue swelling. Calcified plaque of the left greater than right carotid bulbs. Unremarkable thyroid. No pneumothorax. Grade 1 anterolisthesis C3 on C4 is likely secondary to severe long-standing facet arthrosis. Severe disc space narrowing is noted at C5-C6 and C6-C7 with posterior disc osteophyte complex formations. No acute fracture or subluxation identified. Evaluation of the central canal and neuroforamina is better assessed by MRI. Multilevel foraminal narrowing. IMPRESSION: No acute fracture or subluxation. ACT 112: Negative or not required by law. The above report was generated using voice recognition software. It may contain grammatical, syntax or spelling errors. Electronically signed by: Aramis Vásquez M.D. 10/20/2019 8:06 PM ECG Data Attestation: I personally reviewed and interpreted this ECG as follows: Indication: + altered mental status Rate (beats per minute): 103 Rhythm: + sinus tachycardia ECG Intervals/blocks: + Normal QT ECG Findings: + Q waves (Septal) and + Other (Low voltage QRS); no PVCs Comparison ECG Date: from (09/09/2019) Change: no significant change Blood Pressure Blood Pressure Findings: Low blood pressure Blood Pressure Disposition: further management by hospitalist MIKHAIL Narrative I did evaluate the patient as noted above. History is unobtainable from the patient as he is unresponsive. I did obtain history from the patient's and the paramedics. IV access was established. I did treat him with a liter of normal saline here as he is hypovolemic and hypotensive. I did place an order for continuous cardiac monitoring. The monitor showed sinus tachycardia at a rate of 103 bpm. I did order and personally review the patient's 12-lead EKG as described above. He has some Q waves in the septal leads which were present previously. I did order and personally reviewed the images of the patient's chest x-ray as described above. There is no evidence of pneumonia. I did order a urine analysis. I did order and review the patient's blood work as noted in the electronic medical record. I-STAT labs demonstrates a severely elevated sodium as well as creatinine within normal potassium. Sodium is 170. Creatinine is 9.74. Lactic acid is 5.8. His white count is elevated. Magnesium is 3.4. Troponin is 0.57. CPK is 61. I did order a CT of the head and cervical spine. I did review the images myself as well as the radiology report as described above. There is no evidence of acute intracranial or cervical abnormality. I did reassess the patient several times. I did discuss the test results with the patient and his . He is much more awake and alert. He does not verbally answer questions but will nod his head in waves to me. Making good eye contact and interacting with his as well. Blood pressure is improved. I did discuss the case with Dr. Figueroa of nephrology. He recommended admission to the hospital for fluid replacement. I did discuss the case with the disability case manager and hospitalist service. Impression & Plan Acute hypernatremia, SHAGGY (acute kidney injury), Elevated troponin, Altered mental status, Hypermagnesemia Discharge Plan Visit Data Chief Complaint: Altered Mental Status Stated Complaint: [facility] [facility] Provider: David Thrasher Discharge Problem: Acute hypernatremia, SHAGGY (acute kidney injury), Elevated troponin, Altered mental status, Hypermagnesemia Patient Disposition: Being Evaluated by Hospitalist Forms Stand Alone Forms: My [facility] Prescriptions Prescriptions: No Action amlodipine 10 mg tablet 10 mg PO DAILY RF: 0 epinephrine [EpiPen] 0.3 mg/0.3 mL Auto-Injector 0.3 mg IM DIRECTED PRN (Reason: Allergic Reaction) RF: 0 losartan 100 mg tablet 100 mg PO DAILY RF: 0 potassium chloride 20 mEq/15 mL liquid 20 meq PO DAILY Qty: 1200 RF: 0 omeprazole 40 mg capsule,delayed release(DR/EC) 40 mg PO BID RF: 0 acetaminophen [Tylenol Extra Strength] 500 mg Capsule 500 mg PO QID PRN (Reason: Pain) RF: 0 Referrals Referrals: Lobito Orourke Jr, [Primary Care Provider] - Discharge Problem: Altered mental status Qualifiers: Altered mental status type: stupor Qualified Code(s): R40.1 - Stupor
[2019-10-20 19:22] LABS: iSTAT Blood Urea Nitrogen > 140 mg/dl (7-18); iSTAT Carbon Dioxide 24 mmol/L (24-31); iSTAT Chloride 127 mmol/L (101-112); iSTAT Creatinine 9.5 mg/dl (0.6-1.3); iSTAT Glucose 185 mg/dl (70-99); iSTAT Hematocrit 48 % (42-52); iSTAT Hemoglobin 16.3 g/dl (14.0-18.0); iSTAT Ionized Calcium 1.07 mmol/l (1.12-1.32); iSTAT Sodium 174 mmol/L (135-144)
[2019-10-20 19:36] LABS: INR 1.4 (0.9-1.1); Partial Thromboplastin Ratio 1.1; Partial Thromboplastin Time 29.5 Seconds (21.0-31.0); Prothrombin Time 14.8 Seconds (9.0-12.0)
[2019-10-20 19:48] LABS: Hematocrit (blood only) 54.4 % (42-52); Hemoglobin 15.8 g/dL (14.0-18.0); Mean Corpuscular Hemoglobin 30.9 pg (25-34); Mean Corpuscular Volume 106.5 fL (80-100); Nucleated RBC % (auto) 1.4 %; Platelet Count 126 K/uL (130-400); RDW Standard Deviation 74.3 fL (36.4-46.3); Red Blood Count 5.11 M/uL (4.7-6.1); White Blood Count 13.85 K/uL (4.8-10.8)
--- NOTE | 2019-10-20 19:48 | XRay Report ---
XR chest 1V portable HISTORY: 64 years-old Male SEPSIS acute sepsis COMPARISON: Chest radiograph 09/18/2019 TECHNIQUE: Portable AP view of the chest FINDINGS: Cardiomediastinal and hilar silhouettes are within normal limits. No pneumothorax, pleural effusion, airspace consolidation or overt pulmonary edema. Degenerative changes of the shoulders and spine. IMPRESSION: No acute process. ACT 112: Negative or not required by law. The above report was generated using voice recognition software. It may contain grammatical, syntax o r spelling errors. Electronically signed by: Aramis Vásquez M.D. 10/20/2019 7:46 PM
[2019-10-20 19:49] LABS: Basophils # (auto) 0.01 K/uL (0-0.2); Basophils % (auto) 0.1 %; Immature Granulocytes # (auto) 0.06 K/uL (0.00-0.02); Immature Granulocytes % (auto) 0.4 %; Lymphocytes # (auto) 0.96 K/uL (1.2-3.4); Lymphocytes % (auto) 6.9 %; Monocytes % (auto) 3.6 %; Neutrophils # (auto) 12.32 K/uL (1.4-6.5); Platelet Estimate Decreased (Normal); Tear Drop Cells 1+
--- NOTE | 2019-10-20 19:54 | CT Scan Report ---
CT head/brain wo con CLINICAL HISTORY: 64 years-old Male with fall eval for bleed. Acute head injury status post fall TECHNIQUE: Multiple axial CT images of the head were obtained without contrast. A dose lowering tech nique was utilized adhering to the principles of ALARA. COMPARISON: CT cervical spine of same day, head CT 09/09/2019, brain MRI 09/09/2019 FINDINGS: No acute intracranial hemorrhage, midline shift, intracranial mass, hydrocephalus, territorial ischem ia or abnormal extra-axial collection. Age-related involutional changes. Mild patchy white matter hyp odensities suggest probable chronic microvascular ischemic disease. Cerebral vascular calcifications. The calvarium is intact. Minimal subcutaneous edema of the right parietal scalp. The paranasal sinuse s, mastoid air cells, and middle ear cavities are clear. IMPRESSION: No acute intracranial abnormality or calvarial fracture. ACT 112: Negative or not required by law. The above report was generated using voice recognition software. It may contain grammatical, syntax o r spelling errors. Electronically signed by: Aramis Vásquez M.D. 10/20/2019 7:53 PM
[2019-10-20 20:00] LABS: Albumin Globulin Ratio 0.8 (0.9-2); Albumin Level 3.9 gm/dl (3.4-5.0); BUN Creatinine Ratio 29.3 (10-20); Bilirubin,Total 0.8 mg/dl (0.2-1); Calcium 10.5 mg/dl (8.5-10.1); Creatinine Clr Calc Pharmacy 5.8 ml/min; Est GFR (African American) 5.8; Globulin 4.8 gm/dl (2.5-4.0); Magnesium 3.4 mg/dl (1.8-2.4); Total Protein 8.7 gm/dl (6.4-8.2); Troponin I 0.57 ng/ml (0-0.045)
--- NOTE | 2019-10-20 20:08 | CT Scan Report ---
CT cervical spine wo con CT DOSE: 981.95 mGy.cm CLINICAL HISTORY: 64 years-old Male with fall eval for injury. Acute neck pain status post fall COMPARISON: Head CT of same day TECHNIQUE: Multiple axial CT images of the cervical spine were obtained without contrast. A dose low ering technique was utilized adhering to the principles of ALARA. FINDINGS: Demineralized appearance of the bones. Layering secretions are noted within the airway. No prevertebr al soft tissue swelling. Calcified plaque of the left greater than right carotid bulbs. Unremarkable thyroid. No pneumothorax. Grade 1 anterolisthesis C3 on C4 is likely secondary to severe long-standing facet arthrosis. Severe disc space narrowing is noted at C5-C6 and C6-C7 with posterior disc osteophyte complex formations. N o acute fracture or subluxation identified. Evaluation of the central canal and neuroforamina is bett er assessed by MRI. Multilevel foraminal narrowing. IMPRESSION: No acute fracture or subluxation. ACT 112: Negative or not required by law. The above report was generated using voice recognition software. It may contain grammatical, syntax o r spelling errors. Electronically signed by: Aramis Vásquez M.D. 10/20/2019 8:06 PM
[2019-10-20 20:55] LABS: Creatine Kinase MB 5.9 ng/ml (0.5-3.6)
--- NOTE | 2019-10-20 21:29 | History & Physical Report ---
Date of Service October 20, 2019 Assessment & Plan (1) Altered mental status: (2) Electrolyte disturbance: Mr. Tariq is a 64yo gentleman with a PMHx of HTN, neck spasms, recent cholecystitis s/p cholecystectomy and ongoing recent mental status changes who presents with worsening mental status, renal failure and significant electrolyte abnormalities after a fall at home. Altered Mental Status/Metabolic encephalopathy/Fall -Per , she last noted him at baseline about 2 months ago. -Today, came home from work about 5pm and found him on the floor in a position, after a fall. -Has noticed changes where he seems more paranoid, does not want to eat, changes in personality, blank stares. -Head CT unremarkable, ammonia level within normal limits -possibly acute on chronic etiology -possible chronic causes include alcohol abuse - describes alcohol use for many years before stopping 2 years ago, increased MCV noted (see below) -acutely, need to rule out a UTI, UA currently pending. Secondary to electrolyte derangements-Na+, Ca2+, etc (see below) -NPO -consult neurology -consult speech pathology-noted video swallow from last month, ?worsening? -consult nutrition -PT/OT -consult CM for discharge planning with pt not being at baseline for the last 2 months according to his -admit to PCU/tele for continuous monitoring Leukocytosis -concern for infection with AMS with WBC> 13,000 -Chest XR with no evidence of pneumonia -UA pending collection, no noted skin lesions -Lactate elevated, procalcitonin pending -Blood Cx x2 pending -Empiric Rx with Daptomycin + Zosyn (renal dosing) Renal failure -Acute on ?chronic -Cr of 9.74 on admission -Creatinine Kinase WNL in the setting of a fall with unknown downtime -Given pt's PO intake, increased Cr likely secondary to significant dehydration -Pt currently on D5W@80mls, on recheck in 4 hours can consider additional fluids -q4h BMP -consult placed to nephrology who advised no dialysis yet, rehydrate, anticipate correction -hold home potassium chloride 20mEq daily though potassium currently within normal limits Hypernatremia -Na+ noted to be 170 on admission -Likely secondary to renal failure (see below) -started on D5W @80mls/hr with ISS for hyperglycemia -q4h BMP checks Hypercalcemia, hypermagnesemia -as above, anticipate correction with rehydration -trend with bmp, AM labs Hyperglycemia -No known diagnosis of DM -HgbA1c ordered -ISS -pharmacy glycemic consult placed for hyperglycemia in the setting of use of D5W for hypernatremia. Increased troponins -Trops increased above baseline to 0.570 -EKG with sinus tachycardia -likely secondary to demand ischemia -will trend q6h -Echo pending Macrocytic Anemia -Pt with macrocytosis, MCV of 106 this visit -no anemia noted on admission currently as pt dehydrated -Folate and Vit b12 levels ordered, also thiamine/B1 level pending -consider further workup of alcohol use, ?banana bag Thrombocytopenia -peripheral smear ordered -no recent heparin use, less concern for ITP -continue to monitor with daily CBCs Increased INR -No evidence of liver cirrhosis on abdominal imaging from last month -Likely due to malnutrition HTN -BP currently stable, well controlled -holding home amlodipine 10mg and losartan 100mg as pt NPO -consider restart after speech eval Hx of neck spasms -stable Hx of GERD -hold home omeprazole 20mEq -given NPO status and poor PO intake, consider IV pepcid with renal dosing or IV protonix for GI prophylaxis FEN/GI: D5W@80mls/hr, NPO CODE STATUS: Full code after discussion with DVT prophylaxis: SCDs in the setting of thrombocytopenia Dispo: PCU/tele History of Present Illness Primary Care Provider: Lobito Orourke Jr, DO Mr. Tariq is a 64yo gentleman with a PMHx of HTN, neck spasms, recent cholecystitis s/p cholecystectomy and ongoing recent mental status changes who presents with worsening mental status, renal failure and significant electrolyte abnormalities after a fall at home. According to his , she left for work about 7AM and came back at lunch and he seemed to be ok. However, when she got home at about 5pm she found him on the floor in a position. She had also tried feeding him before she left and noted that upon her return he still had the food she gave him in his mouth, with the rest of it untouched. States he has not been at baseline mentally for the last 2 months. States he sometimes does not want her to touch him, has changed in personality with blank stares and no longer wants to eat. PMHx: HTN, neck spasms PSH: Cholecystectomy, right hip replacement, colon resection Meds: Amlodipine 10mg, losartan 100mg, omeprazole 40mg BID, potassium chloride 20mEq SH: Smoked for 30+years and states he drank beer regularly "more than a social drinker" but he quit both smoking and drinking about 2 years ago. No recreational drug use. is the only one at home with him helping with ADLs. ED Course: Given NSS boluses Allergies Allergy/AdvReac Type Severity Reaction Status Date / Time bee venom protein (honey bee) Allergy Severe ANAPHYLACTIC Verified 10/20/19 21:07 REACTION A CHILD Home Medications Home Medications Medication Instructions Recorded Confirmed Type amlodipine 10 mg PO DAILY 08/14/19 10/20/19 History epinephrine [EpiPen] 0.3 mg IM DIRECTED PRN 08/14/19 10/20/19 History losartan 100 mg PO DAILY 08/14/19 10/20/19 History potassium chloride 20 meq PO DAILY #1200 ml 08/28/19 10/20/19 Rx acetaminophen [Tylenol Extra 500 mg PO QID PRN 10/20/19 10/20/19 History Strength] omeprazole 40 mg PO BID 10/20/19 10/20/19 History Past Med/Surg History Medical History SHAGGY (acute kidney injury) Chronic back pain Electrolyte abnormality Clinically consistent with dehydration, NSAID use, uric acid nephropathy, and ATN. Tolerating IVF well. Creatinine continues to improve. Uremia also improving with management. Free water deficit persist (~4.5 L). Unable to tolerate medications or fluids by mouth. IVF switched to 1/4 NaCl + 20 KCl @ 200 ml/h yesterday evening. Urine appropriately alkaline. Noted UA crystals in urine yesterday AM. Serum UA level improving. Hypokalemia and hypophosphatemia noted. magnesium falling. K phos x 30 mmol IV ordered. Will continue to monitor labs twice daily and replace as needed. No adjustment to IVF infusion at this time. Hematemesis Hypertension Thrombocytopenia Vomiting Surgical History H/O right hemicolectomy Social History Smoking Status: Former smoker Smoking End Date: 2018; Second Hand Exposure: No; Hx Alcohol Use: No Hx Substance Use: No Preferred Language: Qatari Communication Ability: Impaired Supervisor Malt House Required: No Beliefs That Will Affect Care: None Current Living Situation: Spouse Other Information That Helps Us Care for You: No Feels Safe at Home: Yes Safety Concerns: Feels Safe At This Time Review of Systems Review of Systems: Unobtainable due to cognitive status Physical Exam Physical Exam: General: Awake. No acute distress, lying in bed. Nonverbal, thin gentleman. Skin: No noted rashes or bruises Psych: mood and affect cannot be determined Neuro: No gross deficits HEENT: NC/AT Chest: Nontender to palpation. CV: RRR, Normal s1, s2. No murmurs appreciated Resp: Breath sounds clear bilaterally, no increased effort of breathing. Abdomen: Soft, nontender, nondistended. No guarding. Extremities: No edema in lower extremities bilaterally. Results & Data Results & Data ([facility]) Vital Signs (Past 12 Hours) Vital Signs Temp Pulse Resp BP Pulse Ox 10/20/19 21:15 83 20 10/20/19 21:02 79 24 97 10/20/19 21:01 80 15 131/85 97 10/20/19 21:00 82 16 10/20/19 20:54 82 24 130/93 97 10/20/19 20:45 91 H 24 10/20/19 20:32 80 17 10/20/19 20:31 87 20 129/82 10/20/19 20:30 78 18 97 10/20/19 20:15 86 18 10/20/19 20:03 20 98 10/20/19 20:01 89 18 10/20/19 20:00 86 22 130/97 10/20/19 19:51 98 10/20/19 19:45 92 H 16 10/20/19 19:41 90 22 123/87 10/20/19 19:37 89 20 10/20/19 19:15 94 H 21 10/20/19 19:00 99 H 23 10/20/19 18:46 100 H 15 10/20/19 18:45 101 H 20 104/77 95 10/20/19 18:20 37 C 113 H 18 103/81 95 Supervising Physician Co-Signing Physician Notes Attending addendum: I have physically seen this patient, have supervised the medical residents activities, and agree with the H&P unless as otherwise noted. Assessment and Plan: Recurrent hypernatremia- Previous admission from 09/09-09/19 for hypernatremia with sodium 166. Place on D5W initially at 80 mils per hour. Patient has already received IV fluids in the ED. Follow BMP in 2 hours, and then every 4 hours, and adjust IV fluids as needed. Check a serum osmolality. Acute renal failure- Creatinine 9.74 upon admission. Nephrology is aware and asked the patient be admitted and hydrated as noted above. Previous admission with hypernatremia had creatinine is worse 3.74, and upon discharge had normalized to 0.77. Urinalysis, urine culture and sensitivity pending. Patient is present living arrangements will need to be reassessed. Consult forensic social worker and palliative care. Remaining orders and notations as noted. Resident Activity Tracking Resident Involvement: Resident Care Provided Care Provided: Adult Hospital Medicine (1) Altered mental status Altered mental status type: stupor Qualified Code(s): R40.1 - Stupor
[2019-10-20] MEDS ORDERED: DEXTROSE 50% 50 ML SYRINGE IV PRN (23:43)
[2019-10-20] MEDS ORDERED: PIPERACILL/TAZOBAC CONSULT ACTIVE PRN (23:43)
[2019-10-20] MEDS ORDERED: CARBOHYDRATES FOR HYPOGLYCEMIA PO PRN (23:43)
[2019-10-20] MEDS ORDERED: GLUCOSE 40% GEL 15 GM TUBE PO PRN (23:43)
[2019-10-20] MEDS ORDERED: GLUCAGON FOR INJ 1 MG VIAL SQ PRN (23:43)
[2019-10-20] MEDS ORDERED: GLUCOSE 10 TABS/TUBE PO PRN (23:43)
[2019-10-21] MEDS ORDERED: DAPTOmycin 350 MG in SYRINGE 0 ML IV ONE (00:15)
[2019-10-21] MEDS ORDERED: PIPERACILLIN/TAZOBACTAM 3.375 GM in DEXTROSE 5% 100 ML IV ONE (00:15)
[2019-10-21] MEDS: DEXTROSE 5% 1,000 ML IV SCH ×5 (00:29→22:14)
[2019-10-21] MEDS ORDERED: INSULIN GLARGINE SOLOSTAR 100 UNITS/ML 3 ML PEN SC STA (00:51)
[2019-10-21] MEDS ORDERED: PHARMACY GLYCEMIC MGMT CONSULT PRN (00:56)
[2019-10-21 01:23] LABS: Calcium 8.9 mg/dl (8.5-10.1); Creatinine Clr Calc Pharmacy 6.9 ml/min; Potassium 3.8 mmol/L (3.5-5.1); Troponin I 0.513 ng/ml (0-0.045)
[2019-10-21] MEDS: INSULIN ASPART 100 UNITS/ML 3 ML PEN SC SCH ×5 (01:46→23:46)
[2019-10-21 04:00] LABS: Appearance Urine Clear (Clear); Blood Urine 1+ (Negative); Color Urine Yellow; Glucose Urine UA Negative (Negative); Ketones Urine Negative (Negative); Leukocyte Esterase Urine Negative (Negative); Nitrite Urine Negative (Negative); Protein Urine Trace (Negative); Specific Gravity Urine >= 1.030 (1.000-1.030); Urobilinogen Urine Negative (Negative)
[2019-10-21 04:09] LABS: Bilirubin Urine Negative (Negative); Ictotest Urine Negative (Negative)
[2019-10-21 04:16] LABS: Bacteria Urine Negative (Negative); RBC Urine >30 /hpf (0-4)
[2019-10-21] MEDS ORDERED: INSULIN GLARGINE SOLOSTAR 100 UNITS/ML 3 ML PEN SC ONE (06:30)
[2019-10-21 07:05] LABS: Estimated Average Glucose 108 mg/dl; Hemoglobin A1C 5.4 % (4.5-5.6)
[2019-10-21 07:42] LABS: Mean Corpuscular Hgb Conc 30.2 g/dL (32-36); Nucleated RBC # (auto) 0.18 K/uL (0-0); Nucleated RBC % (auto) 1.7 %
[2019-10-21 07:54] LABS: Hematocrit (blood only) 43.4 % (42-52); Hemoglobin 13.1 g/dL (14.0-18.0); Mean Corpuscular Hemoglobin 31.6 pg (25-34); Mean Corpuscular Volume 104.8 fL (80-100); RDW Coefficient of Variation 18.6 % (11.5-14.5); RDW Standard Deviation 70.6 fL (36.4-46.3); Red Blood Count 4.14 M/uL (4.7-6.1); White Blood Count 10.27 K/uL (4.8-10.8)
[2019-10-21] MEDS: PIPERACILLIN/TAZOBACTAM 3.375 GM in DEXTROSE 5% 100 ML IV SCH ×2 (08:06→20:25)
[2019-10-21 08:18] LABS: Platelet Count 95 K/uL (130-400)
[2019-10-21 08:21] LABS: Basophils # (auto) 0.01 K/uL (0-0.2); Basophils % (auto) 0.1 %; Eosinophils # (auto) 0.01 K/uL (0-0.5); Eosinophils % (auto) 0.1 %; Immature Granulocytes # (auto) 0.04 K/uL (0.00-0.02); Immature Granulocytes % (auto) 0.4 %; Lymphocytes # (auto) 1.23 K/uL (1.2-3.4); Monocytes # (auto) 0.39 K/uL (0.11-0.59); Monocytes % (auto) 3.8 %; Neutrophils # (auto) 8.59 K/uL (1.4-6.5); Neutrophils % (auto) 83.6 %; Platelet Estimate Decreased (Normal)
[2019-10-21 08:41] LABS: BUN Creatinine Ratio 33.1 (10-20); Calcium 9.3 mg/dl (8.5-10.1); Creatinine Clr Calc Pharmacy 7.1 ml/min; Est GFR (African American) 7.2; Est GFR (Non-African American) 6.2; Magnesium 2.9 mg/dl (1.8-2.4)
[2019-10-21 09:43] LABS: Folate (Folic Acid) 9.65 ng/ml (>5.38)
--- NOTE | 2019-10-21 10:57 | Neurology Consultation ---
Date of Consultation October 21, 2019 Assessment & Plan (1) Encephalopathy: Acute on chronic encephalopathy. Patient appears to have a "quiet delirium" at this time. He is nonverbal but will follow simple commands. He is not tremulous and does not have obvious nystagmus at this time. He is not dyskinetic or rigid. His acute encephalopathy is likely metabolic and related to hypernatremia and acute kidney injury related to dehydration. A TRAINING ASSISTANT cause of hypernatremia may not be completely excluded. I would like this patient to have an MRI of the brain with attention to the pituitary region and hypothalamus. He will need additional evaluation with nephrology. I do note that his previous brain MRI reveals significant increased T2/flair signal around the third ventricle and cerebral aqueduct. This imaging finding may be seen in Wernicke encephalopathy. He does have a reported history of heavy alcohol use, although nothing apparently within the past 2 years. A thiamine level is pending. Continue supportive medical care. If patient's mental status does not improve would consider obtaining an EEG. History of Present Illness Reason for Consultation: Change in mental status Requesting Physician: Lizzie Newman MD Attending Physician: Anselmo Bland MD History of Present Illness The patient is a 64-year-old male who was found on the floor, unresponsive by his spouse. He was reportedly not eating or drinking very much over several days. No seizure activity or head injury reported. He was admitted to the [facility] for persistent encephalopathy. His spouse as indicated that he has been exhibiting a personality/behavior change management specialist the past few months characterized by paranoia, poor p.o. intake, personality change, and blank stares. He was found to have a significant hypernatremia with a serum sodium of 170 and acute renal failure likely related to dehydration. He was admitted to the [facility] under very similar circumstances last month and was evaluated by nephrology at that time. The reason for his hyponatremia was not entirely clear but thought to be related to dehydration and acute kidney injury. An element of hypernatremia due to central causes may not be excluded, however. He did have a brain MRI completed September 09, 2019 which was negative for acute or subacute infarct. However, the study does reveal rather extensive T2/flair hyperintensities throughout the brain parenchyma suggestive of chronic small ve ssel ischemic disease. Per my review of the images, there is notably right T2/flair signal along the lateral aspects of the third ventricles as well as the cerebral aqueduct. These imaging characteristics could be seen in Wernicke's encephalopathy. The patient does have a reported history of alcohol abuse but apparently nothing for the past 2 years. He does have a notable macrocytic anemia. A B12 level is 847, folate level 9.65. Thiamine level pending. Allergies Allergy/AdvReac Type Severity Reaction Status Date / Time bee venom protein (honey bee) Allergy Severe ANAPHYLACTIC Verified 10/20/19 21:07 REACTION A CHILD Home Medications Home Medications Medication Instructions Recorded Confirmed Type amlodipine 10 mg PO DAILY 08/14/19 10/20/19 History epinephrine [EpiPen] 0.3 mg IM DIRECTED PRN 08/14/19 10/20/19 History losartan 100 mg PO DAILY 08/14/19 10/20/19 History potassium chloride 20 meq PO DAILY #1200 ml 08/28/19 10/20/19 Rx acetaminophen [Tylenol Extra 500 mg PO QID PRN 10/20/19 10/20/19 History Strength] omeprazole 40 mg PO BID 10/20/19 10/20/19 History Patient History Medical History SHAGGY (acute kidney injury) Chronic back pain Electrolyte abnormality Clinically consistent with dehydration, NSAID use, uric acid nephropathy, and ATN. Tolerating IVF well. Creatinine continues to improve. Uremia also improving with management. Free water deficit persist (~4.5 L). Unable to tolerate medications or fluids by mouth. IVF switched to 1/4 NaCl + 20 KCl @ 200 ml/h yesterday evening. Urine appropriately alkaline. Noted UA crystals in urine yesterday AM. Serum UA level improving. Hypokalemia and hypophosphatemia noted. magnesium falling. K phos x 30 mmol IV ordered. Will continue to monitor labs twice daily and replace as needed. No adjustment to IVF infusion at this time. Hematemesis Hypertension Thrombocytopenia Vomiting Surgical History H/O right hemicolectomy Social History Smoking Status: Former smoker Smoking End Date: 2018; Second Hand Exposure: No; Hx Alcohol Use: No Hx Substance Use: No Preferred Language: Jamaican Communication Ability: Impaired Supervisor Sign Shop Required: No Beliefs That Will Affect Care: None Current Living Situation: Spouse Other Information That Helps Us Care for You: No Feels Safe at Home: Yes Safety Concerns: Feels Safe At This Time Review of Systems Review of Systems: Unobtainable due to cognitive status Exam (Neuro) Constitutional: well developed and + altered mental status Eyes: normal visual crews by confrontation, PERRL, normal accommodation and EOM intact bilaterally; no fundoscopic abnormality, no nystagmus and no papilledema Cardiovascular: Vessels: normal carotid upstroke; no carotid bruit Neurologic: Oriented to:: negative Person, Place and Time Memory: negative Short Term Intact and Remote Intact Attention: negative Span Intact and Concentration Intact Language: negative Naming Objects and Repeating Phrases Speech Fluency: Other (Patient is nonverbal. He does follow simple commands.) Fund of Knowledge: negative Current Events, Past History and Vocabulary Cranial Nerves: Normal II (Visual crews full to confrontation, visual acuity normal), III, IV, (Pupils equal round reactive to light and accommodation, eye movements normal), V (Facial sensation intact), VII (There is no facial droop or weakness), VIII (Hearing intact), IX, X (Palate elevates to midline), XI (Shoulder shrug intact) and XII (Tongue protrudes to midline) Motor Strength: Normal Lower Extremities and Normal Upper Extremities (Evaluation of motor strength unreliable due to poor patient cooperation. He does not have obvious gross weakness, however.) Motor Tone: Normal Lower Extremities and Normal Upper Extremities Muscle Bulk/Involuntary Movements: No Involuntary Movements; negative Muscle Atrophy Sensation: Light Touch Intact, Pain/Temperature Intact, Vibration Intact and Proprioception Intact (Evaluation of sensory function unreliable due to patient's cognitive status.) Coordination: Finger-Nose Abnormal and Heel-Manzano Abnormal (Patient does not cooperate adequately for reliable assessment coordination. He does exhibit some dysmetria with [id number], however.) Deep Tendon Reflexes: Rt Triceps: 2+, Lt Triceps: 2+, Rt Biceps: 2+, Lt Biceps: 2+, Rt Brachioradialis: 2+, Lt Brachioradialis: 2+, Rt Patellar: 2+, Lt Patellar: 2+, Rt Ankle: 2+ and Lt Ankle: 2+ Special Tests: Babinski Present (Bilateral upgoing plantar responses noted) Details: Gait cannot be tested in the context of patient's current neurological/medical condition, fall risk. Patient does not have obvious nystagmus with evaluation of ocular motility. Evaluation of eye movements is limited, however, due to poor patient cooperation. Results & Data ([facility]) Vital Signs (Past 12 Hours) Vital Signs Temp Pulse Pulse Resp BP BP Pulse Ox 10/21/19 06:52 36.3 C L 78 20 118/79 100 10/21/19 04:29 36.6 C 77 19 105/74 99 10/20/19 23:43 36.5 C 18 121/85 97 10/20/19 23:01 83 17 98 10/20/19 23:00 80 19 126/85 98 10/20/19 22:46 84 17 98 10/20/19 22:45 86 19 131/92 98 10/20/19 22:31 81 20 98 10/20/19 22:30 81 18 128/85 98 Laboratory Results WBC 10.27, hemoglobin 13.1, hematocrit 43.4, platelet count 95, sodium 164, potassium 3.0, BUN to 66, creatinine 8.10, glucose 217, vitamin B12 level 847, folate level 9.65, vitamin B1 level pending, CK 61, alcohol level at the time of admission was less than 3.[address] of the head completed yesterday was negative for hemorrhage or acute process. There is patchy chronic small vessel ischemic change. I reviewed the images as well as the radiologist interpretation of this test. MRI of the brain obtained September 09, 2019 was reviewed as well and is as described in the history of present illness. An electrocardiogram completed yesterday reveals sinus tachycardia, 103 bpm. Coding Level of Care Code 56680 Initial Inpt Care Lvl 3 Diagnoses Encephalopathy G93.40
[2019-10-21] MEDS ORDERED: PERFLUTREN LIPID MICROSPHERE (DEFINITY) IV ONE (11:19)
[2019-10-21 13:06] LABS: Calcium 8.8 mg/dl (8.5-10.1); Creatinine Clr Calc Pharmacy 7.6 ml/min; Est GFR (African American) 7.8; Est GFR (Non-African American) 6.7; Potassium 2.9 mmol/L (3.5-5.1)
[2019-10-21 13:49] LABS: Calcium 8.2 mg/dl (8.5-10.1); Creatinine Clr Calc Pharmacy 7.9 ml/min; Est GFR (African American) 8.2; Est GFR (Non-African American) 7.1; Potassium 2.7 mmol/L (3.5-5.1)
--- NOTE | 2019-10-21 14:24 | Pharmacy Report ---
Glycemic Control Consultation - Date of Service October 21, 2019 - Scope Scope: Glycemic Pharmacist consulted for glycemic control and to write orders per [facility] inpatient glycemic control protocol. - Objective Weight: 56.1 kg Accuchecks BSG (last 24hrs): 10/20/19 10/20/19 10/20/19 19:06 19:08 23:57 Glucose 191 H 130 H POC Glucose POC Glucose (other) 185 H 10/21/19 10/21/19 10/21/19 01:41 05:59 06:59 Glucose 217 H POC Glucose 208 H 241 H POC Glucose (other) 10/21/19 10/21/19 10/21/19 11:49 11:59 13:01 Glucose 166 H 168 H POC Glucose 163 H POC Glucose (other) Laboratory Data (last 24hrs): 10/20/19 10/20/19 10/21/19 19:06 23:57 06:59 Potassium 4.0 3.8 3.0 L D Carbon Dioxide 24 24 26 Anion Gap 16.0 H 12.0 H 12.0 H Creatinine 9.74 H* 8.30 H* D 8.10 H* Est Cr Clr Drug Dosing 5.8 6.9 7.1 10/21/19 10/21/19 11:49 13:01 Potassium 2.9 L 2.7 L Carbon Dioxide 26 25 Anion Gap 11.0 11.0 Creatinine 7.58 H* D 7.26 H* D Est Cr Clr Drug Dosing 7.6 7.9 HbA1c: Hemoglobin A1c 5.4 % (4.5-5.6) 10/20/19 23:57 - Recent Pertinent Medications Outpatient Anti-diabetic Regimen: * n/a * A1c = 5.4 % 10/20/19 Risk Factors for Insulin Resistance: * IVF: D5W@200 * Diet: npo - Assessment & Plan Assessment & Plan: ASSESSMENT: * 64 year old male admitted with altered mental status/metabolic encep halopathy/fall. PMHx significant for htn, choleycystitis. Concern also for infection on admission, started on dapto/zosyn * Multiple electrolyte abnormalities present (hypernatremia, hypercalcemia) and also hyperglycemia. A1c indicates normal range. Pharmacy consulted however for glycemic management due to elevated BSGs. * Elevated BSGs likely related to continuous D5 infusion for hypernatremia - w ill utilize basal/bolus insulin PLAN FOR INPATIENT GLYCEMIC CONTROL: * Basal insulin * Lantus 10 units this AM (received 5 units overnight around midnight) * Will assess basal 8/16 AM * Bolus insulin * NovoLog per scale ACHS or Q6hrs while NPO * Goal Range: Low 120 mg/dL - High 160 mg/dL * Correction Factor: 40 mg/dL/unit * Nutritional / Prandial insulin per carb ratio of 1 unit per 20 grams CHO consumed * Please note that the plan above was derived based on current level of insulin resistance and hospital stress. These recommendations are appropriate for inpatient admission only. Plan of care upon discharge will need to be reassessed to avoid potential outpatient hypo/hyperglycemia. Thank you.
--- NOTE | 2019-10-21 15:03 | Nephrology Consultation ---
Date of Consultation October 21, 2019 Assessment & Plan (1) Acute hypernatremia: * Profound dehydration. Calculated FWD is 8 liters * Continue D5W infusion at 200 cc/hr. Agree w/ monitoring q4 - 6 hr PRP. Goal is to correct serum sodium by 6 - 10 mEq/day * Keep steward catheter in place. Monitor I&O's * Neurology has ordered brain MRI. Will also review to assess for possible posterior pituitary injury (2) Acute kidney injury: * SHAGGY due to profound dehydration. Creatinine is improving w/ IV hydration. Urinalysis today is negative for ATN casts * Monitor PRP. No acute indication for renal US (3) Hypokalemia: * Will order KCl 10 mEq x 3 IV this afternoon * Mg is mildly elevated (possibly related to dehydration/hemoconcentration) (4) Hypercalcemia: * Mild hypercalcemia upon admission. This is trending down with IV hydration. Will monitor (5) Weight loss: * 35 lb weight loss over last 3 months * Will check FOBT, PSA. May need to consider chest CT, colonoscopy once stabilized History of Present Illness Reason for Consultation: SHAGGY, hypernatremia Attending Physician: Anselmo Bland MD History of Present Illness Mr. Tariq is a 64 year old white male who is seen at the request of Dr. Bland for evaluation of SHAGGY and hypernatremia. Medical records in the EMR were reviewed today and are summarized as follows: Mr. Tariq has a history of HTN and has undergone a R hemicolectomy in the past. His reports that he has a history of snf tobacco use and heavy alcohol use (no alcohol for the last 2 years). Mr. Tariq has been admitted three times to [facility] within the last 3 months for evaluation of dehydration, hypernatremia and SHAGGY. In August he was diagnosed w/ NSAID associated gastritis. In September he was found to have chronic cholecystitis and required cholecystectomy. Yesterday Mr. Tariq was found by his to be poorly responsive. In the ED labs revealed SNa 174, BUN 286, Cr 9.7. He has been admitted for IV hydration and ongoing medical management. Mrs. Tariq reports that her has had poor oral intake and has lost approximately 35 lbs over the last 3 months Allergies Allergy/AdvReac Type Severity Reaction Status Date / Time bee venom protein (honey bee) Allergy Severe ANAPHYLACTIC Verified 10/20/19 21:07 REACTION A CHILD Home Medications Home Medications Medication Instructions Recorded Confirmed Type amlodipine 10 mg PO DAILY 08/14/19 10/20/19 History epinephrine [EpiPen] 0.3 mg IM DIRECTED PRN 08/14/19 10/20/19 History losartan 100 mg PO DAILY 08/14/19 10/20/19 History potassium chloride 20 meq PO DAILY #1200 ml 08/28/19 10/20/19 Rx acetaminophen [Tylenol Extra 500 mg PO QID PRN 10/20/19 10/20/19 History Strength] omeprazole 40 mg PO BID 10/20/19 10/20/19 History Patient History Medical History SHAGGY (acute kidney injury) Chronic back pain Electrolyte abnormality Clinically consistent with dehydration, NSAID use, uric acid nephropathy, and ATN. Tolerating IVF well. Creatinine continues to improve. Uremia also improving with management. Free water deficit persist (~4.5 L). Unable to to lerate medications or fluids by mouth. IVF switched to 1/4 NaCl + 20 KCl @ 200 ml/h yesterday evening. Urine appropriately alkaline. Noted UA crystals in urine yesterday AM. Serum UA level improving. Hypokalemia and hypophosphatemia noted. magnesium falling. K phos x 30 mmol IV ordered. Will continue to monitor labs twice daily and replace as needed. No adjustment to IVF infusion at this time. Hematemesis Hypertension Thrombocytopenia Vomiting Surgical History H/O right hemicolectomy Social History Smoking Status: Former smoker Smoking End Date: 2018; Second Hand Exposure: No; Hx Alcohol Use: No Hx Substance Use: No Preferred Language: Polish Communication Ability: Impaired Assistant Case Manager Required: No Beliefs That Will Affect Care: None Current Living Situation: Spouse Other Information That Helps Us Care for You: No Feels Safe at Home: Yes Safety Concerns: Feels Safe At This Time Review of Systems Review of Systems: Unobtainable due to reduced consciousness Physical Exam Constitutional: + ill appearing and + cachectic Eyes: PERRL, conjunctivae normal, anicteric sclerae ENMT: Mouth: + dry oral mucous membranes Neck: trachea midline, no thyromegaly Respiratory: normal respiratory effort, lungs clear to auscultation no respiratory distress Cardiovascular: RRR, no murmur, no edema Gastrointestinal (Abdomen): Percussion/Palpation: abdomen soft; abdomen nont lulú and no guarding Musculoskeletal: Extremities: + muscle atrophy; no cyanosis Skin: + turgor decreased Neurologic: awake and + confused Results & Data ([facility]) Vital Signs (Past 12 Hours) Vital Signs Temp Pulse Pulse Resp BP Pulse Ox 10/21/19 11:23 36.4 C L 78 18 108/72 98 10/21/19 08:00 77 10/21/19 06:52 36.3 C L 78 20 118/79 100 10/21/19 04:29 36.6 C 77 19 105/74 99 Laboratory Results Laboratory Tests 08/19/19 10/20/19 10/21/19 09:41 19:06 06:59 WBC 10.27 Hgb 15.8 Hct 54.4 H Plt Count 126 L Sodium 144 Potassium 3.5 Chloride 111 H Carbon Dioxide 27 BUN 14 Creatinine 1.12 D Calcium 7.3 L Phosphorus 1.6 L Magnesium 1.4 L 10/21/19 06:59 WBC Hgb Hct Plt Count Sodium 164 H* D Potassium 3.0 L D Chloride 127 H Carbon Dioxide 26 BUN 266 H Creatinine 8.10 H* Calcium Phosphorus Magnesium PG Care Time/CCT Total # of Minutes Spent Total Time Spent with Patient: Total time spent is greater than 50% in coordination of care (as documented) at patient's floor/unit and/or counseling patient: Coding Level of Care Code 92648 Inpt Consult Level 5 Diagnoses Acute hypernatremia E87.0 Acute kidney injury N17.9 Hypokalemia E87.6 Hypercalcemia E83.52 Weight loss R63.4
--- NOTE | 2019-10-21 15:20 | XCELERA ---
[id number]
[2019-10-21] MEDS: POTASSIUM CHLORIDE / WTR 10 MEQ/100 ML PLCT IV SCH ×3 (17:10→19:20)
--- NOTE | 2019-10-21 18:05 | Magnetic Resonance Report ---
MRI OF THE BRAIN WITHOUT CONTRAST CLINICAL HISTORY: Hypernatremia encephalopathy. DECREASED COGNITIVE FUNCTION AND STROKELIKE SYMPTOMS, evaluate for pituitary or hypothalamic lesion COMPARISON STUDY: MRI the brain dated 09/09/2019 FINDINGS: Images were acquired in the axial sagittal and coronal planes. No intravenous contrast was administer ed. No intra or extra-axial mass lesions are visualized Axial diffusion-weighted images reveal no evidence of acute or subacute infarction. There is no evidence of ventricular dilatation. Proton density T2-weighted and FLAIR images reveal scattered foci of increased T2 signal within the w sergey matter, likely on a small vessel basis. There are no abnormal flow voids. A focus of decreased signal within the left cerebellar hemisphere as visualized on the ADC map, is li evelina artifactual given there are no corresponding signal abnormalities on any of the additional seque nces. In addition the patient is not reported to have cerebellar symptoms. No pituitary lesions are visualized in this noncontrast study. The infundibulum is within the midline . No hypothalamic lesions are delineated. IMPRESSION: 1. Large focus of decreased signal within the left cerebellar hemisphere as visualized on the ADC map , without a correlate on the diffusion-weighted sequence or on the T2 or FLAIR sequences. The finding s are therefore likely artifactual. 2. No evidence of intracranial mass. 3. No pituitary or hypothalamic lesions identified on this noncontrast study ACT 112: Negative or not required by law. Electronically signed by: Frandy Palacios M.D. 10/21/2019 6:03 PM
[2019-10-21 18:07] LABS: Calcium 8.4 mg/dl (8.5-10.1); Carbon Dioxide 25 mmol/L (21-32); Chloride 122 mmol/L (98-107); Creatinine Clr Calc Pharmacy 8.3 ml/min; Est GFR (African American) 8.7; Est GFR (Non-African American) 7.5; Glucose 125 mg/dl (70-99); Potassium 2.7 mmol/L (3.5-5.1); Sodium 158 mmol/L (136-145)
--- NOTE | 2019-10-21 18:39 | Family Medicine Progress Note ---
Date of Service October 21, 2019 Assessment & Plan Admission and Anticipated Discharge Date Admission Date: October 20, 2019 Metabolic encephalopathy Will replete electrolyte abnormalities and fluid deficit Discussed with neurology; MRI with attention to pituitary is pending Noted history of alcoholism in the past; could represent a Wernicke type picture Hypernatremia D5W at 200 cc/h with PRP every 6 hours Hypercalcemia Monitor with IV fluids Hypokalemia Currently being repleted by nephrology Acute kidney injury Nephrology consultation IV fluids Leukocytosis Resolved He remains afebrile Blood cultures pending Chest x-ray shows no acute process Continue antibiotics until cultures finalized Elevated troponin Perhaps demand ischemia with decreased clearance Echocardiogram pending Macrocytic anemia Thrombocytopenia Anemia is mild but indeed macrocytic Thrombocytopenia could reflect malnutrition, hepatic dysfunction; will monitor GERD Hold omeprazole for now Hypertension Holding home medications Elevated INR Repeat in a.m. Unintentional weight loss MRI brain as noted above He did have a CT scan abdomen pelvis recently which was unremarkable Check segmentation rate Check TSH Check AM cortisol level Subjective Mr. Tariq was admitted overnight subsequent being brought to the emergency department by his who noted that he was less responsive than usual. In the emergency department he was found to have multiple electrolyte abnormalities including a serum sodium of 174, BUN of 286, creatinine of 9.7. He apparently has had poor oral intake and has lost somewhere between 30 and 35 pounds over the last 3 months. While there has been a gradual deterioration in his overall function -yesterday the reports that there was an acute change between the time that she left for work early in the morning and when she returned home around 5 PM. Review of Systems Constitutional: + fatigue, + malaise, + anorexia and + weight loss; no fever and no chills Respiratory: no cough Cardiovascular: no chest pain Neurologic: + unsteadiness and + generalized weakness Psychiatric: + behavioral changes, + depression, + anhedonia and + change in appetite Physical Exam Constitutional: + ill appearing and + cachectic He turns to my voice; nonverbal; slightly raised his right hand to acknowledge my questions. Eyes: PERRL, conjunctivae normal, anicteric sclerae ENMT: external ear and nose normal, oropharynx normal Mucous membranes appear dry Neck: trachea midline, no thyromegaly normal visual inspection and trachea midline Respiratory: normal respiratory effort, lungs clear to auscultation normal respiratory effort Cardiovascular: RRR, no murmur, no edema Rate/Rhythm: regular rate Gastrointestinal (Abdomen): normal bowel sounds, soft, nontender, no hepatosplenomegaly Musculoskeletal: Head/Neck/Chest: neck supple Extremities: + muscle atrophy Skin: + turgor decreased; no rashes Neurologic: He is awake. As noted above, he acknowledges my presence but unable to answer questions. Results & Data ([facility]) Vital Signs (Past 12 Hours) Vital Signs Temp Pulse Pulse Resp BP Pulse Ox 10/21/19 16:00 79 10/21/19 15:00 36.3 C L 69 20 108/70 100 10/21/19 11:23 36.4 C L 78 18 108/72 98 10/21/19 08:00 77 10/21/19 06:52 36.3 C L 78 20 118/79 100 Laboratory Results Laboratory Tests 08/19/19 10/20/19 10/21/19 09:41 19:06 06:59 WBC 10.27 Hgb 15.8 Hct 54.4 H Plt Count 126 L Sodium 144 Potassium 3.5 Chloride 111 H Carbon Dioxide 27 BUN 14 Creatinine 1.12 D Calcium 7.3 L Phosphorus 1.6 L Magnesium 1.4 L 10/21/19 06:59 WBC Hgb Hct Plt Count Sodium 164 H* D Potassium 3.0 L D Chloride 127 H Carbon Dioxide 26 BUN 266 H Creatinine 8.10 H* Calcium Phosphorus Magnesium Diagnostic Findings A CT of the head completed yesterday was negative for hemorrhage or acute process. There is patchy chronic small vessel ischemic change. I reviewed the images as well as the radiologist interpretation of this test. MRI of the brain obtained September 09, 2019 was reviewed as well and is as described in the history of present illness. An electrocardiogram completed yesterday reveals sinus tachycardia, 103 bpm.
[2019-10-21 18:40] LABS: Blood Urea Nitrogen 241 mg/dl (7-18)
[2019-10-21 19:45] LABS: INR 1.4 (0.9-1.1); Prothrombin Time 14.2 Seconds (9.0-12.0)
[2019-10-21 20:06] LABS: C Reactive Protein < 0.29 mg/dl (0-0.29); Thyroid Stimulating Hormone 0.112 uIu/ml (0.300-4.500)
--- NOTE | 2019-10-22 00:33 | Billing Data ---
Date of Service October 22, 2019 Coding Level of Care Code 00419 Initial Inpt Care Lvl 3
[2019-10-22 01:00] LABS: Calcium 7.8 mg/dl (8.5-10.1); Creatinine Clr Calc Pharmacy 9.8 ml/min; Est GFR (African American) 10.6; Est GFR (Non-African American) 9.2; Potassium 2.7 mmol/L (3.5-5.1)
--- NOTE | 2019-10-22 05:49 | Communication Note ---
Date of Service: October 22, 2019 At 0000 recheck pt with precipitous drop in serum sodium (174->152 / 24 hours). Pt clinically asymptomatic, mentating normally and without confusion, regular heart rate. D5 infusion at 200cc/hr paused. Discussed with nursing who will perform periodic assessment of mental status and notify provider of any changes.
[2019-10-22] MEDS: POTASSIUM CHLORIDE / WTR 10 MEQ/100 ML PLCT IV SCH ×12 (06:33→23:41)
[2019-10-22] MEDS: INSULIN ASPART 100 UNITS/ML 3 ML PEN SC SCH ×2 (06:37→12:17)
[2019-10-22] MEDS: POTASSIUM CHLORIDE 20 MEQ in DEXTROSE 5% 1,000 ML IV SCH ×2 (08:09→20:45)
[2019-10-22] MEDS: PIPERACILLIN/TAZOBACTAM 3.375 GM in DEXTROSE 5% 100 ML IV SCH ×2 (08:09→20:09)
[2019-10-22 08:12] LABS: Albumin Globulin Ratio 0.7 (0.9-2); Albumin Level 2.6 gm/dl (3.4-5.0); Bilirubin,Total 1.1 mg/dl (0.2-1); Calcium 8.1 mg/dl (8.5-10.1); Globulin 3.5 gm/dl (2.5-4.0); Potassium 2.6 mmol/L (3.5-5.1); Total Protein 6.1 gm/dl (6.4-8.2)
[2019-10-22 08:14] LABS: Basophils # (auto) 0.01 K/uL (0-0.2); Basophils % (auto) 0.1 %; Eosinophils # (auto) 0.22 K/uL (0-0.5); Eosinophils % (auto) 2.1 %; Hemoglobin 12.3 g/dL (14.0-18.0); Immature Granulocytes # (auto) 0.06 K/uL (0.00-0.02); Immature Granulocytes % (auto) 0.6 %; Lymphocytes # (auto) 1.17 K/uL (1.2-3.4); Lymphocytes % (auto) 11.3 %; Mean Corpuscular Hemoglobin 28.9 pg (25-34); Mean Corpuscular Volume 96.5 fL (80-100); Monocytes % (auto) 4.8 %; Neutrophils % (auto) 81.1 %; Nucleated RBC # (auto) 0.08 K/uL (0-0); Nucleated RBC % (auto) 0.8 %; Platelet Count 93 K/uL (130-400); Platelet Estimate Decreased (Normal); RDW Coefficient of Variation 17.3 % (11.5-14.5); RDW Standard Deviation 60.2 fL (36.4-46.3); Red Blood Count 4.25 M/uL (4.7-6.1); White Blood Count 10.36 K/uL (4.8-10.8)
[2019-10-22 08:16] LABS: BUN Creatinine Ratio 36.8 (10-20); Creatinine Clr Calc Pharmacy 11.4 ml/min; Est GFR (African American) 12.2; Est GFR (Non-African American) 10.6
--- NOTE | 2019-10-22 09:45 | Neurology Progress Note ---
Date of Service October 22, 2019 Assessment & Plan (1) Encephalopathy: Improving encephalopathy. Repeat imaging reviewed, no evidence of a central lesion that would explain patient's hypernatremia. Patient does not have any clinical signs or symptoms suggestive of Wernicke encephalopathy at this time. History of heavy alcohol use 2 years ago, nothing reported recently. No signs or symptoms suggestive of seizure activity, no need for EEG at this time. Continue supportive medical care, follow-up with nephrology. Follow-up with results of thiamine level when available. Admission and Anticipated Discharge Date Admission Date: October 20, 2019 Subjective Follow-up for encephalopathy The patient is a bit more alert and interactive today than he was yesterday. He opens his eyes and regards the examiner. He answers simple questions and will follow simple commands. No tremors, dyskinesias, or seizure-like activity observed. He did complete the requested brain MRI. I reviewed the images as well as the radiologist's interpretation of this test. Specifically, there is no evidence of a pituitary or hypothalamic lesion that would explain patient's hypernatremia. There is evidence of chronic small vessel ischemic disease. I do not appreciate significant T2/flair signal abnormality adjacent to the third ventricle or cerebral aqueduct at this time as I had seen on his previous MRI done this past September. There is artifactual low signal on ADC mapping within the left cerebellar hemisphere with no associated abnormality on diffusion or T2 weighted imaging. A vitamin B1 level is pending. Nephrology has evaluated the patient as well. Patient's acute hyponatremia felt to be related to profound dehydration. Acute kidney injury improving. Review of Systems Constitutional: no fever and no chills Neurologic: no seizure-like activity and no headache(s) Results & Data ([facility]) Vital Signs (Past 12 Hours) Vital Signs Temp Pulse Pulse Resp BP BP Pulse Ox 10/22/19 08:07 36.5 C 79 18 105/70 98 10/22/19 03:39 36.8 C 80 20 92/59 L 98 10/21/19 23:59 71 10/21/19 23:29 36.6 C 74 24 110/65 98 Laboratory Results WBC 10.36, hemoglobin 12.3, hematocrit 41.0, platelet count 93, ESR 23, sodium 152, potassium 2.6, BUN 192, creatinine 5.23, glucose 89, calcium 8.1 Diagnostic Findings Brain MRI reviewed and is as described above. Echocardiogram reveals normal left ventricular size and systolic function, ejection fraction 55 to 60%. There is a small incidental pericardial effusion. No atrial septal defect. Exam (Neuro) Constitutional: well developed; + not well nourished and no acute distress Neurologic: Oriented to:: Person; negative Place and Time Memory: negative Short Term Intact and Remote Intact Attention: negative Span Intact and Concentration Intact Speech Fluency: Other (Speech is slow, comprehension intact, follows simple commands. Able to name objects.) Speech Aphasia: negative Aphasia Cranial Nerves: Normal II, III, IV, , V, VII, VIII, IX, X, XI and XII Motor Strength: Normal Lower Extremities and Normal Upper Extremities Motor Tone: Normal Lower Extremities and Normal Upper Extremities Muscle Bulk/Involuntary Movements: No Involuntary Movements Coding Level of Care Code 31087 Subseq Hosp Care Lvl 2 Diagnoses Encephalopathy G93.40
--- NOTE | 2019-10-22 11:14 | Nephrology Progress Note ---
Date of Service October 22, 2019 Assessment & Plan (1) Acute hypernatremia: * Profound dehydration. Serum sodium is gradually correcting at ~ 10 mEq/day w/ IV D5W infusion * D5W rate has been reduced to 80 cc/hr. Continue to monitor PRP q 6 - 12 hrs * Keep steward catheter in place. Monitor I&O's * Neurology has ordered brain MRI: No posterior pituitary injury reported (2) Acute kidney injury: * SHAGGY due to profound dehydration. Creatinine is improving w/ IV hydration. Urinalysis today is negative for ATN casts * Monitor PRP. No acute indication for renal US or dialysis at this time (3) Hypokalemia: * Will order KCl 10 mEq x 4 IV this morning * Mg is mildly elevated (possibly related to dehydration/hemoconcentration) (4) Hypercalcemia: * Mild hypercalcemia upon admission. This is trending down with IV hydration. Will monitor (5) Weight loss: * 35 lb weight loss over last 3 months * PSA wnl 10/25 * FOBT + x1. Consider consultation w/ GI and colonoscopy once stabilized Admission and Anticipated Discharge Date Admission Date: October 20, 2019 Subjective Mr. Tariq was seen & examined in his hospital room this morning. He was alert but oriented to self only. He was in no apparent distress. Review of Systems Review of Systems: Unobtainable due to cognitive status Physical Exam Constitutional: + ill appearing and + cachectic Eyes: PERRL, conjunctivae normal, anicteric sclerae ENMT: Mouth: + dry oral mucous membranes Neck: trachea midline, no thyromegaly Respiratory: normal respiratory effort, lungs clear to auscultation no respiratory distress Cardiovascular: RRR, no murmur, no edema Gastrointestinal (Abdomen): Percussion/Palpation: abdomen soft; abdomen nontender and no guarding Musculoskeletal: Extremities: + muscle atrophy; no cyanosis Skin: + turgor decreased Neurologic: awake and + confused Results & Data ([facility]) Vital Signs (Past 12 Hours) Vital Signs Temp Pulse Pulse Resp BP BP Pulse Ox 10/22/19 08:07 36.5 C 79 18 105/70 98 10/22/19 03:39 36.8 C 80 20 92/59 L 98 10/21/19 23:59 71 10/21/19 23:29 36.6 C 74 24 110/65 98 Laboratory Results Laboratory Tests 08/19/19 10/22/19 10/22/19 09:41 07:03 07:03 WBC 10.36 Hgb 12.3 L Hct 41.0 L Plt Count 93 L Sodium 144 152 H Potassium 3.5 2.6 L Chloride 111 H 116 H Carbon Dioxide 27 23 BUN 14 192 H Creatinine 1.12 D 5.23 H* D Glucose 89 Calcium 7.3 L Phosphorus 1.6 L Magnesium 1.4 L PG Care Time/CCT Total # of Minutes Spent Total Time Spent with Patient: Total time spent is greater than 50% in coordination of care (as documented) at patient's floor/unit and/or counseling patient: Coding Level of Care Code 20718 Subseq Hosp Care Lvl 3 Diagnoses Acute hypernatremia E87.0 Acute kidney injury N17.9 Hypokalemia E87.6 Hypercalcemia E83.52 Weight loss R63.4
[2019-10-22 12:51] LABS: BUN Creatinine Ratio 36.6 (10-20); Calcium 8.1 mg/dl (8.5-10.1); Creatinine Clr Calc Pharmacy 11.6 ml/min; Est GFR (African American) 12.6; Est GFR (Non-African American) 10.9; Potassium 3.2 mmol/L (3.5-5.1)
--- NOTE | 2019-10-22 16:18 | Electrocardiogram Report ---
Test Reason : Blood Pressure : / mmHG Vent. Rate : 103 BPM Atrial Rate : 103 BPM P-R Int : 156 ms QRS Dur : 072 ms QT Int : 324 ms P-R-T Axes : 081 028 091 degrees QTc Int : 424 ms Sinus tachycardia Low voltage QRS Cannot rule out Anteroseptal infarct (cited on or before 26-JAN-2000) Abnormal ECG When compared with ECG of 09-SEP-2019 01:57, No significant change was found Confirmed by Kade Rowley ([id number]) on 10/22/2019 4:18:25 PM Referred By: REFERRED SELF Confirmed By:Kade Rowley
[2019-10-22 18:18] LABS: BUN Creatinine Ratio 39.7 (10-20); Creatinine Clr Calc Pharmacy 13.2 ml/min; Est GFR (African American) 14.6; Est GFR (Non-African American) 12.6; Potassium 2.8 mmol/L (3.5-5.1)
--- NOTE | 2019-10-22 18:58 | Family Medicine Progress Note ---
Date of Service October 22, 2019 Assessment & Plan Admission and Anticipated Discharge Date Admission Date: Metabolic encephalopathy Will replete electrolyte abnormalities and fluid deficit Discussed with neurology; MRI with attention to pituitary is pending Noted history of alcoholism in the past; could represent a Wernicke type picture Hypernatremia D5W at 100 cc/h with PRP every 12 hours Hypercalcemia Improving with hydration Hypokalemia Currently being repleted by nephrology Acute kidney injury Nephrology consultation Creatinine improved at 4.51 IV fluids Leukocytosis Resolved He remains afebrile Blood cultures no growth at 24 hours Continue antibiotics until cultures finalized Elevated troponin Perhaps demand ischemia with decreased clearance Echocardiogram shows preserved left ventricular function with no wall motion abnormalities. There is mention of a small pericardial effusion without evidence of tamponade, significance uncertain. Macrocytic anemia Thrombocytopenia Anemia is mild but indeed macrocytic Thrombocytopenia could reflect malnutrition, hepatic dysfunction; will monitor Peripheral smear is pending GERD Hold omeprazole for now Hypertension Holding home medications Elevated INR (1.4) Question nutritional/hepatic dysfunction Monitor Unintentional weight loss MRI brain as noted above He did have a CT scan abdomen pelvis recently which was unremarkable ESR is normal at 23 TSH is depressed at 0.112; free T4 was around 1.0 on 09/09/2019 when TSH was similar. Stool occult blood screen was positive on 10/22/2019 -review to see if we can find last colonoscopy Elevated cortisol level (39.04) would be appropriate in acute illness. GISELE screen, anti-proteinase 3, anti-myeloperoxidase, and ANCA were all negative when tested on 08/15/2019 Genetic testing for hemochromatosis was negative on 08/24/2019 Subjective Upon examination the patient is lying supine in bed. He is awake. He responds very simple questions with yes or no. He is oriented to self but nothing else. Compared to yesterday, he is more awake. He denies any complaints. He does not appear to be in any distress. Review of Systems Constitutional: + fatigue, + malaise, + anorexia and + weight loss; no fever and no chills Respiratory: no cough Cardiovascular: no chest pain Neurologic: + unsteadiness and + generalized weakness Psychiatric: + behavioral changes, + depression, + anhedonia and + change in appetite Physical Exam Constitutional: + ill appearing and + cachectic Eyes: PERRL, conjunctivae normal, anicteric sclerae ENMT: external ear and nose normal, oropharynx normal Neck: trachea midline, no thyromegaly normal visual inspection and trachea midline Respiratory: normal respiratory effort, lungs clear to auscultation normal respiratory effort Cardiovascular: RRR, no murmur, no edema Rate/Rhythm: regular rate Gastrointestinal (Abdomen): normal bowel sounds, soft, nontender, no hepatosplenomegaly Musculoskeletal: Head/Neck/Chest: neck supple Extremities: + muscle atrophy Skin: + turgor decreased; no rashes Results & Data ([facility]) Vital Signs (Past 12 Hours) Vital Signs Temp Pulse Pulse Resp BP Pulse Ox 10/22/19 15:14 36.5 C 75 16 92/54 L 95 10/22/19 11:28 36.4 C L 73 18 110/71 97 10/22/19 08:07 36.5 C 79 18 105/70 98 10/22/19 08:00 91 H
[2019-10-22] MEDS ORDERED: DAPTOmycin 350 MG in SYRINGE 0 ML IV SCH (22:00)
[2019-10-23 01:15] LABS: BUN Creatinine Ratio 41.2 (10-20); Est GFR (African American) 17.1; Est GFR (Non-African American) 14.7
[2019-10-23] MEDS: POTASSIUM CHLORIDE / WTR 10 MEQ/100 ML PLCT IV SCH ×10 (01:21→23:23)
[2019-10-23] MEDS: INSULIN ASPART 100 UNITS/ML 3 ML PEN SC SCH (06:51)
[2019-10-23 07:43] LABS: Mean Corpuscular Hgb Conc 32.5 g/dL (32-36); Nucleated RBC # (auto) 0.05 K/uL (0-0); Nucleated RBC % (auto) 0.6 %
[2019-10-23 07:50] LABS: Hematocrit (blood only) 35.4 % (42-52); Hemoglobin 11.5 g/dL (14.0-18.0); Mean Corpuscular Hemoglobin 31.3 pg (25-34); Mean Corpuscular Volume 96.5 fL (80-100); Red Blood Count 3.67 M/uL (4.7-6.1); White Blood Count 8.39 K/uL (4.8-10.8)
[2019-10-23 08:02] LABS: BUN Creatinine Ratio 43.2 (10-20); Creatinine Clr Calc Pharmacy 17.5 ml/min; Est GFR (African American) 20.9; Magnesium 1.7 mg/dl (1.8-2.4); Potassium 2.7 mmol/L (3.5-5.1)
[2019-10-23 08:08] LABS: Platelet Count 78 K/uL (130-400)
[2019-10-23 08:09] LABS: Eosinophils # (auto) 0.13 K/uL (0-0.5); Eosinophils % (auto) 1.5 %; Immature Granulocytes # (auto) 0.05 K/uL (0.00-0.02); Immature Granulocytes % (auto) 0.6 %; Lymphocytes # (auto) 0.59 K/uL (1.2-3.4); Monocytes # (auto) 0.44 K/uL (0.11-0.59); Monocytes % (auto) 5.2 %; Neutrophils # (auto) 7.18 K/uL (1.4-6.5); Neutrophils % (auto) 85.7 %; Platelet Estimate Decreased (Normal)
[2019-10-23] MEDS: POTASSIUM CHLORIDE 20 MEQ in DEXTROSE 5% 1,000 ML IV SCH (08:59)
[2019-10-23] MEDS: DEXTROSE 5% 1,000 ML IV SCH ×2 (10:23→18:24)
--- NOTE | 2019-10-23 11:10 | Nephrology Progress Note ---
Date of Service October 23, 2019 Assessment & Plan (1) Acute hypernatremia: * Profound dehydration. Serum sodium is gradually correcting w/ IV D5W infusion * Serum sodium stalled at 150. Will increase D5W to 125 cc/hr. Continue to monitor PRP q 6 - 12 hrs * Keep steward catheter in place. Monitor I&O's. So far not polyuric. Only 1500 cc UO last 24 hours * Neurology has ordered brain MRI: No posterior pituitary injury reported (2) Acute kidney injury: * SHAGGY due to profound dehydration. Creatinine is improving w/ IV hydration. Urinalysis has been negative for ATN casts * Monitor PRP. No acute indication for renal US or dialysis at this time (3) Hypokalemia: * Will order KCl 10 mEq x 4 IV this morning (4) Hypercalcemia: * Mild hypercalcemia upon admission. This is trending down with IV hydration. Will monitor (5) Weight loss: * 35 lb weight loss over last 3 months. H/o hemicolectomy * CXR - no acute process * PSA wnl 10/25 * FOBT + x1. * Recommend consultation w/ GI and colonoscopy once stabilized (6) Encephalopathy: * Thiamine level is pending * B12 and folate are within normal limits Admission and Anticipated Discharge Date Admission Date: October 20, 2019 Subjective Mr. Tariq was seen & examined in his hospital room this morning. He was alert but oriented to self only. He was in no apparent distress. Review of Systems Review of Systems: Unobtainable due to cognitive status Physical Exam Constitutional: + ill appearing and + cachectic Eyes: PERRL, conjunctivae normal, anicteric sclerae ENMT: Mouth: + dry oral mucous membranes Neck: trachea midline, no thyromegaly Respiratory: normal respiratory effort, lungs clear to auscultation no respiratory distress Cardiovascular: RRR, no murmur, no edema Gastrointestinal (Abdomen): Percussion/Palpation: abdomen soft; abdomen nontender and no guarding Musculoskeletal: Extremities: + muscle atrophy; no cyanosis Skin: + turgor decreased Neurologic: awake and + confused Results & Data ([facility]) Vital Signs (Past 12 Hours) Vital Signs Temp Pulse Pulse Resp BP BP Pulse Ox 10/23/19 11:06 36.9 C 89 18 108/73 97 10/23/19 08:00 74 10/23/19 07:43 36.6 C 74 17 103/61 99 10/23/19 03:31 36.5 C 79 21 95/61 L 98 10/22/19 23:59 76 10/22/19 23:23 36.7 C 79 18 96/62 L 98 Laboratory Results Laboratory Tests 08/19/19 10/23/19 10/23/19 09:41 06:52 06:52 WBC 8.39 Hgb 11.5 L Hct 35.4 L Plt Count 78 L Sodium 144 150 H Potassium 3.5 2.7 L Chloride 111 H 114 H Carbon Dioxide 27 BUN 14 145 H Creatinine 1.12 D 3.36 H D Calcium 7.3 L Phosphorus 1.6 L Magnesium 1.4 L PG Care Time/CCT Total # of Minutes Spent Total Time Spent with Patient: Total time spent is greater than 50% in coordination of care (as documented) at patient's floor/unit and/or counseling patient: Coding Level of Care Code 63417 Subseq Hosp Care Lvl 3 Diagnoses Acute hypernatremia E87.0 Acute kidney injury N17.9 Hypokalemia E87.6 Hypercalcemia E83.52 Weight loss R63.4 Encephalopathy G93.40
[2019-10-23 12:41] LABS: BUN Creatinine Ratio 41.8 (10-20); Calcium 8.1 mg/dl (8.5-10.1); Creatinine Clr Calc Pharmacy 18.1 ml/min; Est GFR (African American) 21.7; Est GFR (Non-African American) 18.7
--- NOTE | 2019-10-23 18:26 | Hospitalist Progress Note ---
Date of Service October 23, 2019 Assessment & Plan (1) Altered mental status: metabolic encephalopathy acutely - although concerning that he has had ongoing encephalopathic features over several admissions and many weeks - ?chronicity of baseline problem / ?ability to recover (2) Acute hypernatremia: profound dehydration - ongoing IVF, ongoing close f/u (3) Acute kidney injury: ARF present on admission; same as above w Na, improving (4) Elevated WBC count: no overt infection. empiric abx held. follow (5) Elevated troponin: probably demand ischemia and poorer renal clearance w ARF (6) Weight loss: multifactorial - concern on subacute to working towards [employer] (7) Hypercalcemia: ipmroved, follow (8) DVT prophylaxis: SCD (9) Discharge planning issues: PT/OT eval and treat Admission and Anticipated Discharge Date Admission Date: October 20, 2019 Results & Data Results & Data ([facility]) Vital Signs (Past 12 Hours) Vital Signs Temp Pulse Pulse Resp BP Pulse Ox 10/23/19 15:25 97.9 F 76 17 107/69 97 10/23/19 11:06 98.4 F 89 18 108/73 97 10/23/19 08:00 74 10/23/19 07:43 97.9 F 74 17 103/61 99 PG Care Time/CCT Total # of Minutes Spent Total Time Spent with Patient: Total time spent is greater than 50% in coordination of care (as documented) at patient's floor/unit and/or counseling patient: Coding Level of Care Code 98332 Subseq Hosp Care Lvl 3 Diagnoses Altered mental status R40.1 Altered mental status type: stupor Acute hypernatremia E87.0 Acute kidney injury N17.9 Elevated WBC count D72.829 Elevated troponin R79.89 Weight loss R63.4 Hypercalcemia E83.52 DVT prophylaxis Z29.9 Discharge planning issues Z02.9 (1) Altered mental status Altered mental status type: stupor Qualified Code(s): R40.1 - Stupor
[2019-10-23 18:58] LABS: BUN Creatinine Ratio 45.4 (10-20); Calcium 8.4 mg/dl (8.5-10.1); Creatinine Clr Calc Pharmacy 22.5 ml/min; Est GFR (African American) 28.2; Est GFR (Non-African American) 24.4; Potassium 2.5 mmol/L (3.5-5.1)
[2019-10-23] MEDS ORDERED: MAGNESIUM SULFATE / D5W 1 GM/100 ML BAG IV ONE (19:30)
[2019-10-23] MEDS: MAGNESIUM OXIDE 400 MG TAB PO SCH (19:32)
[2019-10-24 00:54] LABS: BUN Creatinine Ratio 43.4 (10-20); Calcium 7.6 mg/dl (8.5-10.1); Creatinine Clr Calc Pharmacy 25.7 ml/min; Est GFR (African American) 33.2; Est GFR (Non-African American) 28.7; Potassium 3.1 mmol/L (3.5-5.1)
[2019-10-24] MEDS: DEXTROSE 5% 1,000 ML IV SCH (02:30)
[2019-10-24 06:51] LABS: Mean Corpuscular Hgb Conc 31.8 g/dL (32-36)
[2019-10-24 07:01] LABS: Hematocrit (blood only) 35.9 % (42-52); Hemoglobin 11.4 g/dL (14.0-18.0); Mean Corpuscular Hemoglobin 30.9 pg (25-34); Mean Corpuscular Volume 97.3 fL (80-100); RDW Coefficient of Variation 16.9 % (11.5-14.5); RDW Standard Deviation 58.5 fL (36.4-46.3); Red Blood Count 3.69 M/uL (4.7-6.1); White Blood Count 7.53 K/uL (4.8-10.8)
[2019-10-24 07:34] LABS: BUN Creatinine Ratio 48.6 (10-20); Creatinine Clr Calc Pharmacy 31.8 ml/min; Est GFR (African American) 42.5; Est GFR (Non-African American) 36.6; Potassium 2.6 mmol/L (3.5-5.1)
[2019-10-24 07:56] LABS: Platelet Count 73 K/uL (130-400)
[2019-10-24 07:59] LABS: Basophilic Stippling 1+; Eosinophils # (auto) 0.11 K/uL (0-0.5); Eosinophils % (auto) 1.5 %; Immature Granulocytes # (auto) 0.03 K/uL (0.00-0.02); Immature Granulocytes % (auto) 0.4 %; Lymphocytes # (auto) 0.53 K/uL (1.2-3.4); Monocytes # (auto) 0.45 K/uL (0.11-0.59); Neutrophils # (auto) 6.41 K/uL (1.4-6.5); Neutrophils % (auto) 85.1 %; Platelet Estimate Decreased (Normal)
[2019-10-24] MEDS: POTASSIUM CHLORIDE 10 MEQ TABCR PO SCH ×4 (08:56→21:12)
[2019-10-24] MEDS: POTASSIUM CHLORIDE / WTR 10 MEQ/100 ML PLCT IV SCH ×6 (08:57→23:04)
--- NOTE | 2019-10-24 09:51 | Nephrology Progress Note ---
Date of Service October 24, 2019 Assessment & Plan (1) Acute hypernatremia: * Profound dehydration. Serum sodium has correcting w/ IV D5W infusion. SHAGGY is correcting as well * Stop IVF. Encourage oral hydration * Keep steward catheter in place. Monitor I&O's. So far not polyuric. Only 1750 cc UO last 24 hours * Brain MRI 10/20: No hypothalamic or posterior pituitary injury reported (2) Acute kidney injury: * SHAGGY due to profound dehydration. Creatinine is improving w/ IV hydration. Urinalysis has been negative for ATN casts * Monitor PRP. No acute indication for renal US or dialysis at this time (3) Hypokalemia: * Serum potassium is being replaced by primary service (4) Hypercalcemia: * Corrected w/ IV hydration (5) Weight loss: * 35 lb weight loss over last 3 months. H/o hemicolectomy * CXR - no acute process * PSA wnl 10/25 * FOBT + x1. * Recommend consultation w/ GI for possible colonoscopy (6) Encephalopathy: * Thiamine level is pending * B12 and folate are within normal limits Admission and Anticipated Discharge Date Admission Date: October 20, 2019 Subjective Mr. Tariq was seen & examined in his hospital room this morning. He was alert and oriented to self and place. He appears weak but in no distress. Review of Systems Review of Systems: Unobtainable due to cognitive status Physical Exam Constitutional: + ill appearing and + cachectic Eyes: PERRL, conjunctivae normal, anicteric sclerae ENMT: Mouth: + dry oral mucous membranes Neck: trachea midline, no thyromegaly Respiratory: normal respiratory effort, lungs clear to auscultation no respiratory distress Cardiovascular: RRR, no murmur, no edema Gastrointestinal (Abdomen): Percussion/Palpation: abdomen soft; abdomen nontender and no guarding Musculoskeletal: Extremities: + muscle atrophy; no cyanosis Skin: + turgor decreased Neurologic: awake and + confused Results & Data ([facility]) Vital Signs (Past 12 Hours) Vital Signs Temp Pulse Pulse Resp BP BP Pulse Ox 10/24/19 07:44 36.5 C 75 18 105/71 96 10/24/19 03:11 36.4 C L 55 L 19 99/67 L 96 10/23/19 23:28 36.4 C L 105 H 18 123/79 94 10/23/19 23:21 79 Laboratory Results Laboratory Tests 08/19/19 10/24/19 10/24/19 09:41 06:39 06:39 WBC 7.53 Hgb 11.4 L Hct 35.9 L Plt Count 73 L Sodium 144 144 Potassium 3.5 2.6 L D Chloride 111 H 108 H Carbon Dioxide 27 28 BUN 14 91 H Creatinine 1.12 D 1.87 H D Glucose 144 H Calcium 7.3 L 8.0 L Phosphorus 1.6 L Magnesium 1.4 L Laboratory Tests 10/21/19 06:59 Vitamin B1 Pending PG Care Time/CCT Total # of Minutes Spent Total Time Spent with Patient: Total time spent is greater than 50% in coordination of care (as documented) at patient's floor/unit and/or counseling patient: Coding Level of Care Code 92087 Subseq Hosp Care Lvl 3 Diagnoses Acute hypernatremia E87.0 Acute kidney injury N17.9 Hypokalemia E87.6 Hypercalcemia E83.52 Weight loss R63.4 Encephalopathy G93.40
[2019-10-24] MEDS: MAGNESIUM OXIDE 400 MG TAB PO SCH ×2 (10:46→21:12)
[2019-10-24 12:50] LABS: BUN Creatinine Ratio 47.7 (10-20); Calcium 8.2 mg/dl (8.5-10.1); Est GFR (African American) 47.6; Est GFR (Non-African American) 41.1
--- NOTE | 2019-10-24 19:36 | Hospitalist Progress Note ---
Date of Service October 24, 2019 Assessment & Plan (1) Altered mental status: metabolic encephalopathy acutely - although concerning that he has had ongoing encephalopathic features over several admissions and many weeks - ?chronicity of baseline problem / ?ability to recover awaiting B1 level - will start empiric replacement of vitamins in the hopes of possible improvement (2) Acute hypernatremia: due to profound dehydration - ongoing IVF, ongoing close f/u - improved (3) Acute kidney injury: ARF present on admission; same as above w Na, improving (4) Elevated WBC count: no overt infection. empiric abx held. follow (5) Elevated troponin: probably demand ischemia and poorer renal clearance w ARF (6) Weight loss: multifactorial - concern on subacute to working towards chronic [employer] ---with severe dysphagia will ask for GI input as noted by speech (7) Hypercalcemia: improved, follow (8) DVT prophylaxis: SCD (9) Discharge planning issues: PT/OT eval and treat Admission and Anticipated Discharge Date Admission Date: October 20, 2019 Subjective no meaningful HPI or ROS today. nursing notes no new problems case d/w nephro input appreciated Review of Systems Review of Systems: Unobtainable due to cognitive status Physical Exam Physical Exam: gen awakens to voice but very little communication no distress. heent nc at mmm. cardio reg no r/m/g lungs cta b/l no rr//w good effort abd soft nd nt ext no c/c/e no calf tenderness no focal neuro deficits Results & Data Results & Data ([facility]) Vital Signs (Past 12 Hours) Vital Signs Temp Pulse Pulse Resp BP Pulse Ox 10/24/19 16:00 83 10/24/19 15:48 97.7 F 91 H 18 101/68 94 10/24/19 11:15 97.5 F L 93 H 19 110/73 99 10/24/19 08:00 77 10/24/19 07:44 97.7 F 75 18 105/71 96 PG Care Time/CCT Total # of Minutes Spent Total Time Spent with Patient: Total time spent is greater than 50% in coordination of care (as documented) at patient's floor/unit and/or counseling patient: Coding Level of Care Code 67230 Subseq Hosp Care Lvl 2 Diagnoses Altered mental status R40.1 Altered mental status type: stupor Acute hypernatremia E87.0 Acute kidney injury N17.9 Elevated WBC count D72.829 Elevated troponin R79.89 Weight loss R63.4 Hypercalcemia E83.52 DVT prophylaxis Z29.9 Discharge planning issues Z02.9 (1) Altered mental status Altered mental status type: stupor Qualified Code(s): R40.1 - Stupor
[2019-10-24] MEDS: THIAMINE HCL 100 MG TAB PO SCH (21:12)
[2019-10-24] MEDS: FOLIC ACID 1 MG TAB PO SCH (21:12)
[2019-10-24] MEDS: MAGNESIUM SULFATE / D5W 1 GM/100 ML BAG IV SCH (22:03)
[2019-10-25] MEDS: MAGNESIUM SULFATE / D5W 1 GM/100 ML BAG IV SCH (00:05)
[2019-10-25] MEDS: POTASSIUM CHLORIDE / WTR 10 MEQ/100 ML PLCT IV SCH ×5 (00:05→23:22)
[2019-10-25] MEDS: MENTHOL-ZINC OXIDE 360 APPLN/120 GM TUBE EXT PRN ×2 (01:11→04:51)
[2019-10-25] MEDS: POTASSIUM CHLORIDE 10 MEQ TABCR PO SCH ×4 (07:13→23:07)
[2019-10-25] MEDS: MAGNESIUM OXIDE 400 MG TAB PO SCH ×2 (07:13→23:08)
[2019-10-25] MEDS: FOLIC ACID 1 MG TAB PO SCH (07:13)
[2019-10-25] MEDS: MULTIVITAMIN TAB PO SCH (07:13)
[2019-10-25] MEDS: THIAMINE HCL 100 MG TAB PO SCH (07:14)
[2019-10-25] MEDS: CYANOCOBALAMIN 500 MCG TABLET (VITAMIN B-12) PO SCH (07:14)
[2019-10-25 07:17] LABS: Mean Corpuscular Hgb Conc 31.9 g/dL (32-36)
[2019-10-25 07:34] LABS: Hematocrit (blood only) 36.4 % (42-52); Hemoglobin 11.6 g/dL (14.0-18.0); Mean Corpuscular Hemoglobin 31.6 pg (25-34); Mean Corpuscular Volume 99.2 fL (80-100); RDW Coefficient of Variation 17.6 % (11.5-14.5); RDW Standard Deviation 63.2 fL (36.4-46.3); Red Blood Count 3.67 M/uL (4.7-6.1); White Blood Count 8.29 K/uL (4.8-10.8)
[2019-10-25 07:45] LABS: BUN Creatinine Ratio 43.6 (10-20); Calcium 8.4 mg/dl (8.5-10.1); Creatinine Clr Calc Pharmacy 43.2 ml/min; Est GFR (African American) 62.4; Est GFR (Non-African American) 53.8; Potassium 3.2 mmol/L (3.5-5.1)
[2019-10-25 07:46] LABS: Eosinophils # (auto) 0.14 K/uL (0-0.5); Eosinophils % (auto) 1.7 %; Immature Granulocytes # (auto) 0.06 K/uL (0.00-0.02); Immature Granulocytes % (auto) 0.7 %; Lymphocytes # (auto) 0.57 K/uL (1.2-3.4); Lymphocytes % (auto) 6.9 %; Monocytes # (auto) 0.46 K/uL (0.11-0.59); Monocytes % (auto) 5.5 %; Neutrophils # (auto) 7.06 K/uL (1.4-6.5); Neutrophils % (auto) 85.2 %; Platelet Count 88 K/uL (130-400)
[2019-10-25 07:47] LABS: Platelet Estimate Decreased (Normal)
--- NOTE | 2019-10-25 10:02 | Gastrointestinal Consultation ---
Date of Consultation October 25, 2019 Assessment & Plan (1) Altered mental status: (2) Weight loss: (3) History of gastric ulcer: (4) Dysphagia: Significant change in mental status since time of last hospital evaluation. Alert to name only this morning. 1. Dysphagia and weight loss: Video swallow obtained 09/11/2019 demonstrated moderate oral pharyngeal dysphasia and signs and symptoms of esophageal dysmotility. Previous EGD 08/17/2019 demonstrated no evidence of obstruction or strictures. Unclear and doubtful the patient would be able to swallow safely with current mental status. Maintain n.p.o. Spoke to Dr. Coombs this morning who plans to discuss insertion of NG tube for feeding with patient's . Patient may require PEG tube - unsure of family wishes. 2. History of gastric ulcer: Positive stool for occult blood screen on 10/22/2019. Nonbleeding gastric ulcerations were noted on 08/17/2019 EGD. Consideration could be given to repeat EGD. Oral PPI was discontinued on admission. Does not appear that he is on IV inpatient. Will add Protonix 40mg IV daily 3. Increased INR: Will continue to monitor. Repeat labs in am Supervising Physician Co-Signing Physician Notes I have seen and examined the patient. I agree with the ESTEBAN note above except as noted below. The patient has mental status changes and per nursing was given potassium pill yesterday and did not know what to do with it. He is alert and denies abd pain but does not know where he is. abd pos bs, soft, no guarding nor rebound Dysphagia---he has oropharyngeal dysphagia based on previuos VFS study 09/2019. At present time he is not aware enough to even initiate po. Recommend NG feedings be started. If his cognitive status cannot be improved then recommend PEG tube placement. Defer to hospitalist discussion with family. He is NPO at present so would give IVF while waiting for NG available for use. esophageal dysfunction on VFS study--the patient had EGD 08/2019 without mention of any esophageal issues. Perhaps he has esophageal dysmotility for which nothing can be done. This in itself would not preclude him from doing speech evaluation if /when he can cooperate. PUD---continue PPI---elective EGD to document healing or if needs PEG can view at that time. duodenal polyp--reevaulate at time of elective EGD elevated INR--repeat in am. If still elevated would give vit K especially if he requires PEG at some point. Possibly from malnutrition. mental status changes--ammonia normal on admit so doubt from liver, further workup per hospitalist. History of Present Illness Attending Physician: Emil Coombs DO History of Present Illness The patient is a 64-year-old male known to the GI service from previous admissions with past medical history including hypertension, neck spasms, recent cholecystitis status post cholecystectomy presented to the emergency department 10/20/2019 with altered mental status. Prior records: 08/17/2019: Initial GI consult due to abdominal pain, nausea, vomiting, drop in blood count. Symptoms thought related to patient's ulcers related to nonsteroidal use. Recommendation to discontinue aspirin, bland diet, and PPI. 08/17/2019: EGD by Dr. Puentes demonstrated scattered gastritis and mild erosions from nonsteroidal injury and in the antrum there was a 5 mm ulcer with clean base. There was a 7 mm ulcer on the posterior wall, again with a clean base and no signs of bleeding or visible vessels. 6 mm sessile polyp in the second port ion of the duodenum. No evidence of obstruction or stricture. 08/21/2019: biliary scan with ejection fraction this morning which showed only 4% ejection fraction from his gallbladder, which is significantly low and indicative of malfunctioning gallbladder. 09/11/2019: Inpatient consult by GI due to vomiting and hypernatremia. History for gallstones and a low ejection fraction of only 4%. Suspect patient has chronic gallbladder disease and this is probably the etiology for his failure to thrive and able to maintain his nutrition and hydration status. 09/11/2019: Fluoroscopic video swallowing study was performed to rule out aspiration due to coarse coughing and expectoration of large amounts of phlegm after eating. Swallowing study demonstrated moderate oral pharyngeal dysphasia and signs and symptoms of esophageal dysfunction. 09/15/2019: Laparoscopic cholecystectomy by Dr. Patel Stool occult blood screen was positive on 10/22/2019 On exam/interview today, the patient is alert to person only. He is not following directions well and not answering questions. He has been n.p.o. since time of admission. Has been receiving ongoing IV fluids. Acute renal failure is improving. Allergies Allergy/AdvReac Type Severity Reaction Status Date / Time bee venom protein (honey bee) Allergy Severe ANAPHYLACTIC Verified 10/20/19 21:07 REACTION A CHILD Home Medications Home Medications Medication Instructions Recorded Confirmed Type amlodipine 10 mg PO DAILY 08/14/19 10/20/19 History epinephrine [EpiPen] 0.3 mg IM DIRECTED PRN 08/14/19 10/20/19 History losartan 100 mg PO DAILY 08/14/19 10/20/19 History potassium chloride 20 meq PO DAILY #1200 ml 08/28/19 10/20/19 Rx acetaminophen [Tylenol Extra 500 mg PO QID PRN 10/20/19 10/20/19 History Strength] omeprazole 40 mg PO BID 10/20/19 10/20/19 History Patient History Medical History SHAGGY (acute kidney injury) Chronic back pain Electrolyte abnormality Clinically consistent with dehydration, NSAID use, uric acid nephropathy, and ATN. Tolerating IVF well. Creatinine continues to improve. Uremia also improving with management. Free water deficit persist (~4.5 L). Unable to tolerate medications or fluids by mouth. IVF switched to 1/4 NaCl + 20 KCl @ 200 ml/h yesterday evening. Urine appropriately alkaline. Noted UA crystals in urine yesterday AM. Serum UA level improving. Hypokalemia and hypophosphatemia noted. magnesium falling. K phos x 30 mmol IV ordered. Will continue to monitor labs twice daily and replace as needed. No adjustment to IVF infusion at this time. 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 Required: No Beliefs That Will Affect Care: None Current Living Situation: Spouse Other Information That Helps Us Care for You: No Feels Safe at Home: Yes Safety Concerns: Feels Safe At This Time Review of Systems Review of Systems: Unobtainable due to cognitive status Physical Exam Constitutional: + ill appearing and + cachectic ENMT: Mouth: + dry oral mucous membranes Neck: trachea midline, no thyromegaly Respiratory: normal respiratory effort, lungs clear to auscultation no respiratory distress Cardiovascular: RRR, no murmur, no edema Gastrointestinal (Abdomen): Inspection/Auscultation: + hypoactive bowel sounds Percussion/Palpation: abdomen soft; abdomen nontender and no guarding well healed laparoscopic surgical scars Musculoskeletal: Extremities: + muscle atrophy; no cyanosis Skin: + turgor decreased Neurologic: awake and + confused Results & Data ([facility]) Vital Signs (Past 12 Hours) Vital Signs Temp Pulse Pulse Resp BP Pulse Ox 10/25/19 08:00 83 10/25/19 07:33 36.7 C 78 18 111/74 96 10/25/19 03:34 36.5 C 58 L 17 112/72 96 10/24/19 23:59 85 10/24/19 23:47 36.6 C 80 18 101/69 97 Abnormal Labs 10/20/19 10/20/19 10/20/19 19:06 19:06 19:06 WBC 13.85 H RBC Hgb Hct 54.4 H MCV 106.5 H MCHC 29.0 L RDW Std Deviation 74.3 H RDW Coeff of Kaleigh 19.0 H Plt Count 126 L Neut # (Auto) 12.32 H Lymph # (Auto) 0.96 L Immature Gran # (Auto) 0.06 H Absolute Nucleated RBC 0.20 H Platelet Estimate Decreased L ESR PT INR POC Sodium Sodium Potassium POC Chloride Chloride Anion Gap POC Anion Gap POC BUN BUN Creatinine POC Creatinine BUN/Creatinine Ratio Glucose POC Glucose POC Glucose (other) Lactate 5.8 H* Calcium POC Ioniz Calcium Kaleb Magnesium Total Bilirubin AST Ammonia < 10.0 L CK-MB (CK-2) CK/CKMB % Calc Troponin I Total Protein Albumin Globulin Albumin/Globulin Ratio Procalcitonin TSH Cortisol AM Sample Urine Protein Urine Blood Urine RBC Urine WBC Ur Epithelial Cells Stool Occult Bld Scrn 10/20/19 10/20/19 10/20/19 19:06 19:06 19:06 WBC RBC Hgb Hct MCV MCHC RDW Std Deviation RDW Coeff of [place] Plt Count Neut # (Auto) Lymph # (Auto) Immature Gran # (Auto) Absolute Nucleated RBC Platelet Estimate ESR PT 14.8 H INR 1.4 H POC Sodium Sodium 170 H* Potassium POC Chloride Chloride 129 H Anion Gap 16.0 H POC Anion Gap POC BUN BUN 286 H Creatinine 9.74 H* POC Creatinine BUN/Creatinine Ratio 29.3 H Glucose 191 H POC Glucose POC Glucose (other) Lactate Calcium 10.5 H POC Ioniz Calcium Kaleb Magnesium 3.4 H Total Bilirubin AST 51 H Ammonia CK-MB (CK-2) 5.9 H CK/CKMB % Calc 9.7 H Troponin I 0.570 H* Total Protein 8.7 H Albumin Globulin 4.8 H Albumin/Globulin Ratio 0.8 L Procalcitonin TSH Cortisol AM Sample Urine Protein Urine Blood Urine RBC Urine WBC Ur Epithelial Cells Stool Occult Bld Scrn 10/20/19 10/20/19 10/20/19 19:06 19:08 21:29 WBC RBC Hgb Hct MCV MCHC RDW Std Deviation RDW Coeff of [place] Plt Count Neut # (Auto) Lymph # (Auto) Immature Gran # (Auto) Absolute Nucleated RBC Platelet Estimate ESR PT INR POC Sodium 174 H* Sodium Potassium POC Chloride 127 H Chloride Anion Gap POC Anion Gap 28.0 H POC BUN > 140 H* BUN Creatinine POC Creatinine 9.5 H* BUN/Creatinine Ratio Glucose POC Glucose POC Glucose (other) 185 H Lactate 3.4 H* Calcium POC Ioniz Calcium Kaleb 1.07 L Magnesium Total Bilirubin AST Ammonia CK-MB (CK-2) CK/CKMB % Calc Troponin I Total Protein Albumin Globulin Albumin/Globulin Ratio Procalcitonin 0.54 H TSH Cortisol AM Sample Urine Protein Urine Blood Urine RBC Urine WBC Ur Epithelial Cells Stool Occult Bld Scrn 10/20/19 10/21/19 10/21/19 23:57 01:41 03:55 WBC RBC Hgb Hct MCV MCHC RDW Std Deviation RDW Coeff of [place] Plt Count Neut # (Auto) Lymph # (Auto) Immature Gran # (Auto) Absolute Nucleated RBC Platelet Estimate ESR PT INR POC Sodium Sodium 174 H* Potassium POC Chloride Chloride 138 H Anion Gap 12.0 H POC Anion Gap POC BUN BUN 266 H Creatinine 8.30 H* D POC Creatinine BUN/Creatinine Ratio 32.0 H Glucose 130 H POC Glucose 208 H POC Glucose (other) Lactate Calcium POC Ioniz Calcium Kaleb Magnesium Total Bilirubin AST Ammonia CK-MB (CK-2) CK/CKMB % Calc Troponin I 0.513 H* Total Protein Albumin Globulin Albumin/Globulin Ratio Procalcitonin TSH Cortisol AM Sample Urine Protein Trace H Urine Blood 1+ H Urine RBC >30 H Urine WBC 5-10 H Ur Epithelial Cells 5-10 H Stool Occult Bld Scrn 10/21/19 10/21/19 10/21/19 05:59 06:59 06:59 WBC RBC 4.14 L Hgb 13.1 L Hct MCV 104.8 H MCHC 30.2 L RDW Std Deviation 70.6 H RDW Coeff of K[place] 18.6 H Plt Count 95 L Neut # (Auto) 8.59 H Lymph # (Auto) Immature Gran # (Auto) 0.04 H Absolute Nucleated RBC 0.18 H Platelet Estimate Decreased L ESR PT INR POC Sodium Sodium Potassium POC Chloride Chloride Anion Gap POC Anion Gap POC BUN BUN Creatinine POC Creatinine BUN/Creatinine Ratio Glucose POC Glucose 241 H POC Glucose (other) Lactate Calcium POC Ioniz Calcium Kaleb Magnesium Total Bilirubin AST Ammonia CK-MB (CK-2) CK/CKMB % Calc Troponin I 0.587 H* Total Protein Albumin Globulin Albumin/Globulin Ratio Procalcitonin TSH Cortisol AM Sample Urine Protein Urine Blood Urine RBC Urine WBC Ur Epithelial Cells Stool Occult Bld Scrn 10/21/19 10/21/19 10/21/19 06:59 11:49 11:59 WBC RBC Hgb Hct MCV MCHC RDW Std Deviation RDW Coeff of [place] Plt Count Neut # (Auto) Lymph # (Auto) Immature Gran # (Auto) Absolute Nucleated RBC Platelet Estimate ESR PT INR POC Sodium Sodium 164 H* D 160 H* Potassium 3.0 L D 2.9 L POC Chloride Chloride 127 H 123 H Anion Gap 12.0 H POC Anion Gap POC BUN BUN 266 H 229 H Creatinine 8.10 H* 7.58 H* D POC Creatinine BUN/Creatinine Ratio 33.1 H 30.0 H Glucose 217 H 166 H POC Glucose 163 H POC Glucose (other) Lactate Calcium POC Ioniz Calcium Kaleb Magnesium 2.9 H Total Bilirubin AST Ammonia CK-MB (CK-2) CK/CKMB % Calc Troponin I Total Protein Albumin Globulin Albumin/Globulin Ratio Procalcitonin TSH Cortisol AM Sample Urine Protein Urine Blood Urine RBC Urine WBC Ur Epithelial Cells Stool Occult Bld Scrn 10/21/19 10/21/19 10/21/19 13:01 17:18 18:14 WBC RBC Hgb Hct MCV MCHC RDW Std Deviation RDW Coeff of [place] Plt Count Neut # (Auto) Lymph # (Auto) Immature Gran # (Auto) Absolute Nucleated RBC Platelet Estimate ESR PT INR POC Sodium Sodium 161 H* 158 H* Potassium 2.7 L 2.7 L POC Chloride Chloride 125 H 122 H Anion Gap POC Anion Gap POC BUN BUN 250 H 241 H Creatinine 7.26 H* D 6.94 H* D POC Creatinine BUN/Creatinine Ratio 33.0 H Glucose 168 H 125 H POC Glucose 151 H POC Glucose (other) Lactate Calcium 8.2 L 8.4 L POC Ioniz Calcium Kaleb Magnesium Total Bilirubin AST Ammonia CK-MB (CK-2) CK/CKMB % Calc Troponin I Total Protein Albumin Globulin Albumin/Globulin Ratio Procalcitonin TSH Cortisol AM Sample Urine Protein Urine Blood Urine RBC Urine WBC Ur Epithelial Cells Stool Occult Bld Scrn 10/21/19 10/21/19 10/21/19 19:09 19:09 19:09 WBC RBC Hgb Hct MCV MCHC RDW Std Deviation RDW Coeff of [place] Plt Count Neut # (Auto) Lymph # (Auto) Immature Gran # (Auto) Absolute Nucleated RBC Platelet Estimate ESR 23 H PT 14.2 H INR 1.4 H POC Sodium Sodium Potassium POC Chloride Chloride Anion Gap POC Anion Gap POC BUN BUN Creatinine POC Creatinine BUN/Creatinine Ratio Glucose POC Glucose POC Glucose (other) Lactate Calcium POC Ioniz Calcium Kaleb Magnesium Total Bilirubin AST Ammonia CK-MB (CK-2) CK/CKMB % Calc Troponin I Total Protein Albumin Globulin Albumin/Globulin Ratio Procalcitonin TSH 0.112 L Cortisol AM Sample Urine Protein Urine Blood Urine RBC Urine WBC Ur Epithelial Cells Stool Occult Bld Scrn 10/21/19 10/22/19 10/22/19 23:32 00:18 06:12 WBC RBC Hgb Hct MCV MCHC RDW Std Deviation RDW Coeff of [place] Plt Count Neut # (Auto) Lymph # (Auto) Immature Gran # (Auto) Absolute Nucleated RBC Platelet Estimate ESR PT INR POC Sodium Sodium 152 H Potassium 2.7 L POC Chloride Chloride 117 H Anion Gap 12.0 H POC Anion Gap POC BUN BUN 218 H Creatinine 5.89 H* D POC Creatinine BUN/Creatinine Ratio 37.0 H Glucose 128 H POC Glucose 152 H POC Glucose (other) Lactate Calcium 7.8 L POC Ioniz Calcium Kaleb Magnesium Total Bilirubin AST Ammonia CK-MB (CK-2) CK/CKMB % Calc Troponin I Total Protein Albumin Globulin Albumin/Globulin Ratio Procalcitonin TSH Cortisol AM Sample Urine Protein Urine Blood Urine RBC Urine WBC Ur Epithelial Cells Stool Occult Bld Scrn Positive A 10/22/19 10/22/19 10/22/19 07:03 07:03 07:03 WBC RBC 4.25 L Hgb 12.3 L Hct 41.0 L MCV MCHC 30.0 L RDW Std Deviation 60.2 H RDW Coeff of [place] 17.3 H Plt Count 93 L Neut # (Auto) 8.40 H Lymph # (Auto) 1.17 L Immature Gran # (Auto) 0.06 H Absolute Nucleated RBC 0.08 H Platelet Estimate Decreased L ESR PT INR POC Sodium Sodium 152 H Potassium 2.6 L POC Chloride Chloride 116 H Anion Gap 13.0 H POC Anion Gap POC BUN BUN 192 H Creatinine 5.23 H* D POC Creatinine BUN/Creatinine Ratio 36.8 H Glucose POC Glucose POC Glucose (other) Lactate Calcium 8.1 L POC Ioniz Calcium Kaleb Magnesium Total Bilirubin 1.1 H AST Ammonia CK-MB (CK-2) CK/CKMB % Calc Troponin I Total Protein 6.1 L D Albumin 2.6 L Globulin Albumin/Globulin Ratio 0.7 L Procalcitonin TSH Cortisol AM Sample 39.04 H Urine Protein Urine Blood Urine RBC Urine WBC Ur Epithelial Cells Stool Occult Bld Scrn 10/22/19 10/22/19 10/22/19 11:55 12:07 17:30 WBC RBC Hgb Hct MCV MCHC RDW Std Deviation RDW Coeff of [place] Plt Count Neut # (Auto) Lymph # (Auto) Immature Gran # (Auto) Absolute Nucleated RBC Platelet Estimate ESR PT INR POC Sodium Sodium 151 H 151 H Potassium 3.2 L D 2.8 L POC Chloride Chloride 116 H 115 H Anion Gap POC Anion Gap POC BUN BUN 187 H 179 H Creatinine 5.11 H* 4.51 H* D POC Creatinine BUN/Creatinine Ratio 36.6 H 39.7 H Glucose 134 H 119 H POC Glucose 127 H POC Glucose (other) Lactate Calcium 8.1 L 8.0 L POC Ioniz Calcium Kaleb Magnesium Total Bilirubin AST Ammonia CK-MB (CK-2) CK/CKMB % Calc Troponin I Total Protein Albumin Globulin Albumin/Globulin Ratio Procalcitonin TSH Cortisol AM Sample Urine Protein Urine Blood Urine RBC Urine WBC Ur Epithelial Cells Stool Occult Bld Scrn 10/23/19 10/23/19 10/23/19 00:21 06:52 06:52 WBC RBC 3.67 L Hgb 11.5 L Hct 35.4 L MCV MCHC RDW Std Deviation 59.0 H RDW Coeff of [place] 17.0 H Plt Count 78 L Neut # (Auto) 7.18 H Lymph # (Auto) 0.59 L Immature Gran # (Auto) 0.05 H Absolute Nucleated RBC 0.05 H Platelet Estimate Decreased L ESR PT INR POC Sodium Sodium 150 H 150 H Potassium 3.0 L 2.7 L POC Chloride Chloride 114 H 114 H Anion Gap POC Anion Gap POC BUN BUN 164 H 145 H Creatinine 3.97 H D 3.36 H D POC Creatinine BUN/Creatinine Ratio 41.2 H 43.2 H Glucose 121 H 133 H POC Glucose POC Glucose (other) Lactate Calcium 8.0 L 8.0 L POC Ioniz Calcium Kaleb Magnesium 1.7 L Total Bilirubin AST Ammonia CK-MB (CK-2) CK/CKMB % Calc Troponin I Total Protein Albumin Globulin Albumin/Globulin Ratio Procalcitonin TSH Cortisol AM Sample Urine Protein Urine Blood Urine RBC Urine WBC Ur Epithelial Cells Stool Occult Bld Scrn 10/23/19 10/23/19 10/24/19 11:46 17:52 00:14 WBC RBC Hgb Hct MCV MCHC RDW Std Deviation RDW Coeff of [place] Plt Count Neut # (Auto) Lymph # (Auto) Immature Gran # (Auto) Absolute Nucleated RBC Platelet Estimate ESR PT INR POC Sodium Sodium 151 H 149 H 148 H Potassium 3.0 L 2.5 L* D 3.1 L D POC Chloride Chloride 112 H 110 H 110 H Anion Gap POC Anion Gap POC BUN BUN 136 H 119 H 99 H Creatinine 3.26 H 2.62 H D 2.29 H D POC Creatinine BUN/Creatinine Ratio 41.8 H 45.4 H 43.4 H Glucose 142 H 159 H 135 H POC Glucose POC Glucose (other) Lactate Calcium 8.1 L 8.4 L 7.6 L POC Ioniz Calcium Kaleb Magnesium Total Bilirubin AST Ammonia CK-MB (CK-2) CK/CKMB % Calc Troponin I Total Protein Albumin Globulin Albumin/Globulin Ratio Procalcitonin TSH Cortisol AM Sample Urine Protein Urine Blood Urine RBC Urine WBC Ur Epithelial Cells Stool Occult Bld Scrn 10/24/19 10/24/19 10/24/19 06:39 06:39 11:48 WBC RBC 3.69 L Hgb 11.4 L Hct 35.9 L MCV MCHC 31.8 L RDW Std Deviation 58.5 H RDW Coeff of K[place] 16.9 H Plt Count 73 L Neut # (Auto) Lymph # (Auto) 0.53 L Immature Gran # (Auto) 0.03 H Absolute Nucleated RBC Platelet Estimate Decreased L ESR PT INR POC Sodium Sodium Potassium 2.6 L D 3.0 L D POC Chloride Chloride 108 H Anion Gap POC Anion Gap POC BUN BUN 91 H 81 H Creatinine 1.87 H D 1.70 H POC Creatinine BUN/Creatinine Ratio 48.6 H 47.7 H Glucose 144 H 109 H POC Glucose POC Glucose (other) Lactate Calcium 8.0 L 8.2 L POC Ioniz Calcium Kaleb Magnesium Total Bilirubin AST Ammonia CK-MB (CK-2) CK/CKMB % Calc Troponin I Total Protein Albumin Globulin Albumin/Globulin Ratio Procalcitonin TSH Cortisol AM Sample Urine Protein Urine Blood Urine RBC Urine WBC Ur Epithelial Cells Stool Occult Bld Scrn 10/25/19 10/25/19 06:14 06:14 WBC RBC 3.67 L Hgb 11.6 L Hct 36.4 L MCV MCHC 31.9 L RDW Std Deviation 63.2 H RDW Coeff of Kaleigh 17.6 H Plt Count 88 L Neut # (Auto) 7.06 H Lymph # (Auto) 0.57 L Immature Gran # (Auto) 0.06 H Absolute Nucleated RBC Platelet Estimate Decreased L ESR PT INR POC Sodium Sodium 147 H Potassium 3.2 L POC Chloride Chloride 114 H Anion Gap POC Anion Gap POC BUN BUN 59 H Creatinine POC Creatinine BUN/Creatinine Ratio 43.6 H Glucose POC Glucose POC Glucose (other) Lactate Calcium 8.4 L POC Ioniz Calcium Kaleb Magnesium Total Bilirubin AST Ammonia CK-MB (CK-2) CK/CKMB % Calc Troponin I Total Protein Albumin Globulin Albumin/Globulin Ratio Procalcitonin TSH Cortisol AM Sample Urine Protein Urine Blood Urine RBC Urine WBC Ur Epithelial Cells Stool Occult Bld Scrn (1) Altered mental status Altered mental status type: stupor Qualified Code(s): R40.1 - Stupor
--- NOTE | 2019-10-25 11:15 | Nephrology Progress Note ---
Date of Service October 25, 2019 Assessment & Plan (1) Acute hypernatremia: * Corrected w/ D5W infusion. Patient is now clincally euvolemic. IVF have been stopped. Oral hydration is being encouraged * Keep steward catheter in place. UO only 1 L yesterday. Patient is not polyuric. Continue to monitor I&O's * Brain MRI 10/20: No hypothalamic or posterior pituitary injury reported (2) Acute kidney injury: * Corrected w/ IV hydration. Urinalysis has been negative for ATN casts * Monitor PRP. No acute indication for renal US or dialysis at this time (3) Hypokalemia: * Serum potassium is being replaced by primary service (4) Weight loss: * 35 lb weight loss over last 3 months. H/o hemicolectomy * CXR - no acute process * PSA wnl 10/25 * FOBT + x1. * Recommend consultation w/ GI for possible colonoscopy * Recommend consultation w/ speech therapy for swallowing study (5) Encephalopathy: * Thiamine level is pending * B12 and folate are within normal limits (6) Weakness: * Physical therapy has been consulted. Patient has been refusing to participate Admission and Anticipated Discharge Date Admission Date: October 20, 2019 Subjective Mr. Tariq was seen & examined in his hospital room this morning. He was alert but oriented to self only. He remains weak but is in no distress. Review of Systems Review of Systems: Unobtainable due to cognitive status Physical Exam Constitutional: + ill appearing and + cachectic Eyes: PERRL, conjunctivae normal, anicteric sclerae Neck: trachea midline, no thyromegaly Respiratory: normal respiratory effort, lungs clear to auscultation no respiratory distress Cardiovascular: RRR, no murmur, no edema Gastrointestinal (Abdomen): Percussion/Palpation: abdomen soft; abdomen nontender and no guarding Musculoskeletal: Extremities: + muscle atrophy; no cyanosis Neurologic: awake and + confused Results & Data ([facility]) Vital Signs (Past 12 Hours) Vital Signs Temp Pulse Pulse Resp BP Pulse Ox 10/25/19 10:52 36.4 C L 99 H 22 128/86 96 10/25/19 08:00 83 10/25/19 07:33 36.7 C 78 18 111/74 96 10/25/19 03:34 36.5 C 58 L 17 112/72 96 10/24/19 23:59 85 10/24/19 23:47 36.6 C 80 18 101/69 97 Laboratory Tests 08/19/19 10/21/19 10/25/19 09:41 06:59 06:14 WBC 8.29 Hgb 11.6 L Hct 36.4 L Plt Count 88 L Sodium 144 Potassium 3.5 Chloride 111 H Carbon Dioxide 27 BUN 14 Creatinine 1.12 D Calcium 7.3 L Phosphorus 1.6 L Magnesium 1.4 L Vitamin B1 Pending 10/25/19 06:14 WBC Hgb Hct Plt Count Sodium 147 H Potassium 3.2 L Chloride 114 H Carbon Dioxide 25 BUN 59 H Creatinine 1.36 D Calcium Phosphorus Magnesium Vitamin B1 PG Care Time/CCT Total # of Minutes Spent Total Time Spent with Patient: Total time spent is greater than 50% in coordination of care (as documented) at patient's floor/unit and/or counseling patient: Coding Level of Care Code 51573 Subseq Hosp Care Lvl 3 Diagnoses Acute hypernatremia E87.0 Acute kidney injury N17.9 Hypokalemia E87.6 Weight loss R63.4 Encephalopathy G93.40 Weakness R53.1
[2019-10-25] MEDS: PANTOprazole 40 MG in SYRINGE 0 ML IV SCH (11:34)
[2019-10-25] MEDS ORDERED: FIBERSOURCE HN 1.2 CAL 1000 ML BAG NG SCH (18:00)
--- NOTE | 2019-10-25 18:02 | Hospitalist Progress Note ---
Date of Service October 25, 2019 Assessment & Plan (1) Altered mental status: metabolic encephalopathy acutely - although concerning that he has had ongoing encephalopathic features over several admissions and many weeks - ?chronicity of baseline problem / ?ability to recover -ddx broad, although much has been eliminated. ?severe malnutrition/electrolyte disturbances leaving him no margin of error combined with acute delirium from being in hospital? --right now this would be most likely lead ddx just given what he's been through and what is concretely evident. will pursue LP to r/o encephalitis pictures but seems far less likely; called PCP for him to call me back to discuss what he was considering for ddxs since he's known the patient well, and for much longer, continue to follow and consider many ddx's - but again right now delirium plus severe malnutrition certainly is plausible (2) Acute hypernatremia: due to profound dehydration - ongoing IVF, ongoing close f/u (sl worse today but restarted fluids wll follow) (3) Acute kidney injury: ARF present on admission; same as above w Na, improved (4) Elevated WBC count: no overt infection. empiric abx held. follow but showing no s/s infection (5) Elevated troponin: probably demand ischemia and poorer renal clearance w ARF (6) Weight loss: multifactorial - concern on subacute to working towards chronic malnutiriton - appearing fairly severe -concern on nutritional status -- tried to place NGT x3 apparently he pulled x3; will try again tomorrow -- considered PPN but since he's been hyperosmolar from hypernatremic dehydration concern on osmolarity with that -- for tonight D10 1/2NSS w 20K/L - if unable to get NGT in successfully tomorrow will proceed w PICC for TPN (7) Hypercalcemia: improved, follow (8) DVT prophylaxis: SCD (9) Discharge planning issues: PT/OT eval and treat Admission and Anticipated Discharge Date Admission Date: October 20, 2019 Subjective no meaningful HPI or ROS. d/w GI, input appreciated d/w for a while - updated extensively - she expressed good understanding of situation. answered all questions to the best of my ability Review of Systems Review of Systems: Unobtainable due to cognitive status Physical Exam Physical Exam: gen no real meanigful response, but nad. nc at mmm breathing unlabored no accessory muscles good effort skin no rashes no pallor or icterus neuro no focal deficits Results & Data Results & Data ([facility]) Vital Signs (Past 12 Hours) Vital Signs Temp Pulse Pulse Resp BP BP Pulse Ox 10/25/19 16:00 83 10/25/19 15:49 98.2 F 77 18 118/74 97 10/25/19 10:52 97.5 F L 99 H 22 128/86 96 10/25/19 08:00 83 10/25/19 07:33 98.1 F 78 18 111/74 96 PG Care Time/CCT Total # of Minutes Spent Total Time Spent with Patient: Total time spent is greater than 50% in coordin ation of care (as documented) at patient's floor/unit and/or counseling patient: Coding Level of Care Code 41729 Subseq Hosp Care Lvl 3 Diagnoses Altered mental status R40.1 Altered mental status type: stupor Acute hypernatremia E87.0 Acute kidney injury N17.9 Elevated WBC count D72.829 Elevated troponin R79.89 Weight loss R63.4 Hypercalcemia E83.52 DVT prophylaxis Z29.9 Discharge planning issues Z02.9 (1) Altered mental status Altered mental status type: stupor Qualified Code(s): R40.1 - Stupor
[2019-10-25] MEDS ORDERED: THIAMINE HCL 100 MG in SYRINGE 9 ML IV ONE (18:30)
[2019-10-25] MEDS: SODI CHLOR 2.5MEQ/ML 14.6% 77 MEQ in DEXTROSE 10% 1,000 ML IV SCH (19:24)
[2019-10-26] MEDS: POTASSIUM CHLORIDE / WTR 10 MEQ/100 ML PLCT IV SCH (00:22)
[2019-10-26 06:38] LABS: INR 1.2 (0.9-1.1); Prothrombin Time 12.1 Seconds (9.0-12.0)
[2019-10-26 07:04] LABS: Hematocrit (blood only) 31.9 % (42-52); Hemoglobin 9.8 g/dL (14.0-18.0); Mean Corpuscular Hemoglobin 31.2 pg (25-34); Mean Corpuscular Hgb Conc 30.7 g/dL (32-36); Mean Corpuscular Volume 101.6 fL (80-100); Platelet Count 101 K/uL (130-400); RDW Coefficient of Variation 17.9 % (11.5-14.5); RDW Standard Deviation 65.7 fL (36.4-46.3); Red Blood Count 3.14 M/uL (4.7-6.1); White Blood Count 6.87 K/uL (4.8-10.8)
[2019-10-26 07:05] LABS: Eosinophils # (auto) 0.34 K/uL (0-0.5); Eosinophils % (auto) 4.9 %; Immature Granulocytes % (auto) 1.5 %; Lymphocytes # (auto) 0.89 K/uL (1.2-3.4); Monocytes # (auto) 0.34 K/uL (0.11-0.59); Monocytes % (auto) 4.9 %; Neutrophils % (auto) 75.7 %; Platelet Estimate Decreased (Normal)
[2019-10-26 07:07] LABS: Calcium 7.4 mg/dl (8.5-10.1); Creatinine Clr Calc Pharmacy 53.9 ml/min; Est GFR (African American) 81.5; Est GFR (Non-African American) 70.4; Magnesium 1.9 mg/dl (1.8-2.4); Potassium 3.8 mmol/L (3.5-5.1)
[2019-10-26 07:11] LABS: Albumin Globulin Ratio 0.6 (0.9-2); Bilirubin,Total 0.4 mg/dl (0.2-1); Globulin 3.3 gm/dl (2.5-4.0); Phosphorus 1.9 mg/dl (2.5-4.9); Total Protein 5.3 gm/dl (6.4-8.2)
[2019-10-26 07:32] LABS: CoV2 Total Antibody Negative (Negative)
[2019-10-26] MEDS: FOLIC ACID 1 MG TAB PO SCH (08:29)
[2019-10-26] MEDS: POTASSIUM CHLORIDE 10 MEQ TABCR PO SCH ×4 (08:29→20:40)
[2019-10-26] MEDS: MAGNESIUM OXIDE 400 MG TAB PO SCH ×2 (08:29→12:58)
[2019-10-26] MEDS: MULTIVITAMIN TAB PO SCH (08:30)
[2019-10-26] MEDS: CYANOCOBALAMIN 500 MCG TABLET (VITAMIN B-12) PO SCH (08:30)
[2019-10-26] MEDS: SODI CHLOR 2.5MEQ/ML 14.6% 77 MEQ in DEXTROSE 10% 1,000 ML IV SCH (08:33)
[2019-10-26] MEDS ORDERED: THIAMINE HCL 100 MG in SYRINGE 9 ML IV SCH (09:00)
--- NOTE | 2019-10-26 09:18 | Gastroenterology Progress Note ---
Date of Service October 26, 2019 Assessment & Plan (1) Dysphagia: The patient is looking better today and remains alert to person. He has demonstrated oropharyngeal dysphagia on previous video swallow September 2019. Due to cognitive status, p.o. intake is not recommended at present time. Dr. Puentes will discuss option of PEG tube for feeding with the patient's later today. PUD---continue PPI---elective EGD to document healing or if needs PEG can view at that time. duodenal polyp--reevaulate at time of elective EGD Admission and Anticipated Discharge Date Admission Date: October 20, 2019 Subjective The patient is alert to person, sitting up in bed, watching television. He denies any complaints including nausea, vomiting, abdominal pain. He is unable to tell me where he is. N.p.o. since time of admission. IV fluids were restarted yesterday. NG tube nutrition was placed yesterday and pulled x3 by the patient. Plan for today is PICC line for TPN per hospitalist note. Review of Systems Review of Systems: Unobtainable due to cognitive status Physical Exam Constitutional: + ill appearing and + cachectic alert and somewhat conversant ENMT: Mouth: + dry oral mucous membranes Neck: trachea midline, no thyromegaly Respiratory: normal respiratory effort; no respiratory distress and no labored breathing Cardiovascular: RRR, no murmur, no edema Gastrointestinal (Abdomen): Inspection/Auscultation: + hypoactive bowel sounds Percussion/Palpation: abdomen soft; abdomen nontender and no guarding well healed laparoscopic surgical scars Musculoskeletal: Extremities: + muscle atrophy; no cyanosis Skin: + turgor decreased Neurologic: awake and + confused Results & Data ([facility]) Vital Signs (Past 12 Hours) Vital Signs Temp Pulse Pulse Resp BP Pulse Ox 10/26/19 08:00 36.7 C 77 16 106/70 97 10/26/19 03:27 36.2 C L 70 20 107/72 98 10/25/19 23:59 74 10/25/19 23:51 36.6 C 86 22 100/65 97 Laboratory Results - last 24 hr 10/25/19 10/25/19 10/26/19 12:30 18:23 06:05 WBC 6.87 RBC 3.14 L Hgb 9.8 L Hct 31.9 L MCV 101.6 H MCH 31.2 MCHC 30.7 L RDW Std Deviation 65.7 H RDW Coeff of Kaleigh 17.9 H Plt Count 101 L MPV 13.0 H Immature Gran % (Auto) 1.5 Neut % (Auto) 75.7 Lymph % (Auto) 13.0 [place] % (Auto) 4.9 Eos % (Auto) 4.9 Baso % (Auto) 0.0 Neut # (Auto) 5.20 Lymph # (Auto) 0.89 L [place] # (Auto) 0.34 Eos # (Auto) 0.34 Baso # (Auto) 0.00 Immature Gran # (Auto) 0.10 H Platelet Estimate Decreased L PT INR Sodium Potassium Chloride Carbon Dioxide Anion Gap BUN Creatinine Est Cr Clr Drug Dosing Est GFR ( Amer) Est GFR (Non-Af Amer) BUN/Creatinine Ratio Glucose Calcium Phosphorus Magnesium Total Bilirubin AST ALT Alkaline Phosphatase Total Protein Albumin Globulin Albumin/Globulin Ratio Urine Osmolality 485 L SARS-CoV-2 IgG & IgM Ab Negative 10/26/19 10/26/19 06:05 06:05 WBC RBC Hgb Hct MCV MCH MCHC RDW Std Deviation RDW Coeff of Kaleigh Plt Count MPV Immature Gran % (Auto) Neut % (Auto) Lymph % (Auto) [place] % (Auto) Eos % (Auto) Baso % (Auto) Neut # (Auto) Lymph # (Auto) [place] # (Auto) Eos # (Auto) Baso # (Auto) Immature Gran # (Auto) Platelet Estimate PT 12.1 H INR 1.2 H Sodium 148 H Potassium 3.8 D Chloride 123 H Carbon Dioxide 19 L Anion Gap 6.0 BUN 41 H Creatinine 1.09 Est Cr Clr Drug Dosing 53.9 Est GFR ( Amer) 81.5 Est GFR (Non-Af Amer) 70.4 BUN/Creatinine Ratio 38.0 H Glucose 115 H Calcium 7.4 L Phosphorus 1.9 L Magnesium 1.9 Total Bilirubin 0.4 AST 24 ALT 23 Alkaline Phosphatase 65 Total Protein 5.3 L Albumin 2.0 L Globulin 3.3 Albumin/Globulin Ratio 0.6 L Urine Osmolality SARS-CoV-2 IgG & IgM Ab
--- NOTE | 2019-10-26 09:47 | Nephrology Progress Note ---
Date of Service October 26, 2019 Assessment & Plan (1) Acute hypernatremia: * Corrected w/ D5W infusion. Patient is not yet taking oral. Will provide gentle hydration * Keep steward catheter in place. UO only 776 cc yesterday. Patient is not polyuric. Urine osmolality > 400. Continue to monitor I&O's * Brain MRI 10/20: No hypothalamic or posterior pituitary injury reported (2) Acute kidney injury: * Corrected w/ IV hydration. Urinalysis has been negative for ATN casts * Monitor PRP. No acute indication for renal US or dialysis at this time (3) Hypokalemia: * Serum potassium is being replaced by primary service (4) Weight loss: * 35 lb weight loss over last 3 months. H/o hemicolectomy * CXR - no acute process * PSA wnl 10/25 * FOBT + x1. * Recommend consultation w/ GI for possible colonoscopy * Recommend consultation w/ speech therapy for swallowing study * Primary service is considering tube feedings (5) Encephalopathy: * Thiamine level is pending * B12 and folate are within normal limits (6) Weakness: * Physical therapy has been consulted. Patient has been refusing to participate Admission and Anticipated Discharge Date Admission Date: October 20, 2019 Subjective Mr. Tariq was seen & examined in his hospital room this morning. He was more alert this morning but oriented to self only. He complained of abdominal discomfort. Review of Systems Respiratory: no dyspnea Cardiovascular: no chest pain Gastrointestinal: + abdominal pain Physical Exam Constitutional: + ill appearing and + cachectic Eyes: PERRL, conjunctivae normal, anicteric sclerae ENMT: Mouth: + dry oral mucous membranes Neck: trachea midline, no thyromegaly Respiratory: normal respiratory effort, lungs clear to auscultation no resp iratory distress Cardiovascular: RRR, no murmur, no edema Gastrointestinal (Abdomen): Percussion/Palpation: abdomen soft; abdomen nontender and no guarding Musculoskeletal: Extremities: + muscle atrophy; no cyanosis Skin: + turgor decreased Neurologic: awake and + confused Results & Data ([facility]) Vital Signs (Past 12 Hours) Vital Signs Temp Pulse Pulse Resp BP Pulse Ox 10/26/19 08:00 36.7 C 77 16 106/70 97 10/26/19 03:27 36.2 C L 70 20 107/72 98 10/25/19 23:59 74 08/19/20 23:51 36.6 C 86 22 100/65 97 Laboratory Results Laboratory Tests 08/19/19 10/26/19 10/26/19 09:41 06:05 06:05 WBC 6.87 Hgb 9.8 L Hct 31.9 L Plt Count 101 L Sodium 144 148 H Potassium 3.5 3.8 D Chloride 111 H 123 H Carbon Dioxide 27 19 L BUN 14 41 H Creatinine 1.12 D 1.09 Glucose 115 H Calcium 7.3 L 7.4 L Phosphorus 1.6 L 1.9 L Magnesium 1.4 L Albumin 2.0 L Laboratory Tests 08/19/19 10/21/19 09:41 06:59 Sodium 144 Potassium 3.5 Chloride 111 H Carbon Dioxide 27 BUN 14 Creatinine 1.12 D Calcium 7.3 L Phosphorus 1.6 L Magnesium 1.4 L Vitamin B1 Pending PG Care Time/CCT Total # of Minutes Spent Total Time Spent with Patient: Total time spent is greater than 50% in coordination of care (as documented) at patient's floor/unit and/or counseling patient: Coding Level of Care Code 34983 Subseq Hosp Care Lvl 3 Diagnoses Acute hypernatremia E87.0 Acute kidney injury N17.9 Hypokalemia E87.6 Weight loss R63.4 Encephalopathy G93.40 Weakness R53.1
[2019-10-26] MEDS ORDERED: SODIUM CHLORIDE 0.45 % 1,000 ML IV SCH (10:00)
--- NOTE | 2019-10-26 10:27 | Fluoroscopy Report ---
FLUOROSCOPICALLY GUIDED LUMBAR PUNCTURE CLINICAL HISTORY: Altered mental status, ?encephalitis FLUOROSCOPY TIME: 0.5 minutes. 2 fluoroscopic spot images of the lumbar spine submitted. PROCEDURE: The procedure, risks and benefits were discussed with the patient including the risk of s sandra headache, bleeding and infection. The patient agreed to the procedure and informed written cons ent was obtained. The procedure was performed by Dr. Jimenes following a timeout. The left L5-S1 an d L2-L3 interlaminar space were separately targeted. Skin overlying the space was prepped and draped in the usual sterile fashion and local anesthesia was achieved with 1% lidocaine. Under intermittent fluoroscopic guidance, a 20-gauge x 3 1/2 in. Sprotte needle was inserted into L5-S1 level. The tip o f the needle was located within the central canal and both AP and lateral views. However, no cerebral spinal fluid was obtained. A second attempt at the L2-L3 level was also made with the tip located wi thin the central canal on both AP and lateral views. However, no cerebral spinal fluid was obtained. Therefore, the procedure was terminated as this is consistent with a dry tap. There were no immediate complications. IMPRESSION: Unsuccessful fluoroscopic guided lumbar puncture consistent with a dry tap. ACT 112: Negative or not required by law. Electronically signed by: Dani Jimenes M.D. 10/26/2019 10:26 AM
[2019-10-26] MEDS: PANTOprazole 40 MG in SYRINGE 0 ML IV SCH (11:10)
[2019-10-26] MEDS ORDERED: TPN/PPN CONSULT PHARMACY PRN (13:38)
[2019-10-26] MEDS ORDERED: DEXTROSE 10% 1,000 ML IV PRN (13:40)
[2019-10-26] MEDS ORDERED: TPN/PPN CONSULT PHARMACY STA (13:40)
--- NOTE | 2019-10-26 14:50 | Progress Notes ---
DATE: 10/26/2019 Dictating along with Rosa López. I reviewed the patient's recent history of oropharyngeal dysphagia demonstrated on the video swallow and his negative EGD in August. The patient presents back in the hospital with recurrent dehydration and altered mental status. He continues to be confused today and was unable to tell me his complete date of or where he was at the time. Attempts to feed him by nasogastric tube were unsuccessful as he pulled the tube out 3 separate times. He is now getting IV nutrition. I did have a phone conversation with the patient's today and she said that they have never had a conversation about whether or not he would tolerate a gastrostomy tube, but she felt that it is possible that he may tolerate it better than a nasogastric tube, but she will talk to him about it later today to see if she can provide any further information about whether to proceed in that direction or not. We will continue to follow the patient and if he agrees to proceed with a gastrostomy tube and is competent to provide informed consent, then we will consider placing it at that time.
--- NOTE | 2019-10-26 15:22 | Pharmacy Report ---
Pharmacy PN Initial Consult - Date of Service October 26, 2019 - Scope Pharmacy has been consulted to manage parenteral nutrition orders and order appropriate labs. As part of the Nutrition Support Team guidelines, pharmacy will work in conjunction with dietary when determining the patients caloric needs. - Subjective The patient is a 64 year old M admitted on 10/20/19 21:16 for AMS, HYPERNATREMIA. Patient is to receive parenteral nutrition for prolonged malnutrition/weight loss secondary to dysphagia. Pertinent PMH: Recent cholecystitis s/p cholecystectomy and colon resection, history of alcohol abuse, recently SHAGGY (now resolved) - Objective Height: 5 ft 8 in Weight: 57.2 kg Intake & Output (Last 24Hrs): Intake & Output 10/24/19 10/25/19 10/26/19 10/27/19 06:59 06:59 06:59 06:59 Intake Total 3969.667 / 3969.667 1999 / 1999 400 / 400 1241.467 / 1241.467 Output Total 1753 / 1753 1003 / 1003 776 / 776 250 / 250 Balance 2216.667 / 2216.667 997 / 997 -376 / -376 991.467 / 991.467 Weight 57.9 kg 57.1 kg 57.2 kg Laboratory Data (Last 24 Hrs):: 10/26/19 06:05 Sodium 148 H Potassium 3.8 D Chloride 123 H Carbon Dioxide 19 L BUN 41 H Creatinine 1.09 Glucose 115 H Calcium 7.4 L Phosphorus 1.9 L Magnesium 1.9 Total Bilirubin 0.4 AST 24 ALT 23 Alkaline Phosphatase 65 Albumin 2.0 L Nutrition Assessment:: Please refer to the Notes section of the EMR for the most recent tear down man note. - Assessment * JW is a 64 year old male ordered parenteral nutrition due to prolonged malnutrition/weight loss secondary to dysphagia. NG tube nutrition attempted yesterday, but NG tube was pulled out 3 times by patient. * Patient is at risk for refeeding syndrome - will initiate at ~10-12 kcal/kg * PICC line to be placed today - will keep this initial bag below 900 mOsm/L so that it can be infused peripherally * Patient with significant SHAGGY on admission, which has now resolved - will order electrolyte labs for this evening and then daily * 0.45% NS @80 mL/hr currently infusing and set to stop with initiation of PPN - Plan For day 1 of PN administration, the following will be ordered: Macronutrients Amino acids 75 grams/day Dextrose 100 grams/day Hold lipids for today Micronutrients Sodium acetate 40 mEq Potassium phosphate 30 mMol Potassium acetate 30 mEq Magnesium sulfate 8.12 mEq Calcium gluconate 4.65 mEq Multivitamins 10 mL Trace Elements 10 mL Additional additives: thiamine 100 mg, folic acid 1 mg Total volume 1920 mL to be infused over 24 hrs will provide 640 kcal/day Final osmolarity 721 mOsm/L (maximum for PPN is 900 mOsm/L) Labs to be ordered per PN order protocol Pharmacy will follow and adjust parenteral nutrition orders on a daily basis. Thank you.
[2019-10-26] MEDS ORDERED: TPN IV SCH (16:00)
[2019-10-26] MEDS ORDERED: CENTRAL PN IV SCH (16:00)
--- NOTE | 2019-10-26 16:54 | Hospitalist Progress Note ---
Date of Service October 26, 2019 Assessment & Plan (1) Altered mental status: metabolic encephalopathy acutely - although concerning that he has had ongoing encephalopathic features over several admissions and many weeks - ?chronicity of baseline problem / ?ability to recover -in discussions w PCP the case for more of an acute on chronic picture is worrisome - especially with significant weight loss preceding the current few months of acute illness; LP to be done once possible for completeness, continue to try to get nutrition in, follow closely / supportive care (2) Acute hypernatremia: due to profound dehydration - ongoing IVF, ongoing close f/u and f/u BMP (3) Acute kidney injury: ARF present on admission; same as above w Na, improved; continue to follow (4) Elevated WBC count: no overt infection. empiric abx held. follow but showing no s/s infection (5) Elevated troponin: probably demand ischemia and poorer renal clearance w ARF (6) Weight loss: multifactorial - concern on subacute to working towards chronic [facility]irit[facility] - appearing fairly severe -concern on nutritional status -- have been unable to succeed in NGT despite multple attempts, wanted PICC for TPN and right now unable to get PICC - start PPN (was concerned about osmolality but pharmacy will be able to give fairly large volume, and at this point getting some nutrition in will be better than zero; may need to consider consult for IJ or even port depending on progress or lack thereof) (7) Hypercalcemia: improved, follow (8) DVT prophylaxis: SCDs (9) Discharge planning issues: PT/OT eval and treat Admission and Anticipated Discharge Date Admission Date: October 20, 2019 Subjective no meaningful HPI or ROS. still unable to get NGT, unable to complete LP. updated - consented for PICC over the phone, then later informed by IV team that none of his veins are large enough for a PICC. d/w pharmacy who will start PPN tonight d/w PCP dr abdi - he notes that maurizio had ~30-40lbs weight loss preceding his current run of illnesses the last few months - quite suspicious about a primary encephalopathy that might have been changing behaviors/reducing PO intake - and now worsening may largely be acute on chronic. also noted that up to about 3yrs ago maurizio was apparently a fairly heavy drinker - was thinking thiamine replacement, B1 level. Review of Systems Review of Systems: Unobtainable due to cognitive status Physical Exam Physical Exam: not much meaningful response but no distress heent nc at mmm breathing unlabored no accessory msucles good effort skin no rashes no pallor or icterus Results & Data Results & Data ([facility]) Vital Signs (Past 12 Hours) Vital Signs Temp Pulse Pulse Resp BP Pulse Ox 10/26/19 15:18 99.0 F 82 16 122/80 99 10/26/19 11:52 98.1 F 71 16 111/72 99 10/26/19 08:00 98.1 F 74 77 16 106/70 97 PG Care Time/CCT Total # of Minutes Spent Total Time Spent with Patient: Total time spent is greater than 50% in coordination of care (as documented) at patient's floor/unit and/or counseling patient: Coding Level of Care Code 73809 Subseq Hosp Care Lvl 3 Diagnoses Altered mental status R40.1 Altered mental status type: stupor Acute hypernatremia E87.0 Acute kidney injury N17.9 Elevated WBC count D72.829 Elevated troponin R79.89 Weight loss R63.4 Hypercalcemia E83.52 DVT prophylaxis Z29.9 Discharge planning issues Z02.9 (1) Altered mental status Altered mental status type: stupor Qualified Code(s): R40.1 - Stupor
[2019-10-26 20:59] LABS: BUN Creatinine Ratio 32.5 (10-20); Calcium 8.1 mg/dl (8.5-10.1); Creatinine Clr Calc Pharmacy 63.2 ml/min; Est GFR (African American) 98.8; Est GFR (Non-African American) 85.2; Magnesium 1.8 mg/dl (1.8-2.4); Potassium 3.5 mmol/L (3.5-5.1)
[2019-10-26 21:00] LABS: Phosphorus 2.2 mg/dl (2.5-4.9)
[2019-10-26] MEDS ORDERED: POTASSIUM PHOSPHATE IV ONE (22:00)
[2019-10-26] MEDS ORDERED: SODIUM CHLORIDE 0.9% IV ONE (22:00)
[2019-10-26] MEDS ORDERED: MAGNESIUM SULFATE IV ONE (22:00)
[2019-10-27] MEDS: MAGNESIUM OXIDE 400 MG TAB PO SCH ×2 (08:23→19:57)
[2019-10-27] MEDS: POTASSIUM CHLORIDE 10 MEQ TABCR PO SCH ×4 (08:23→19:57)
[2019-10-27] MEDS: CYANOCOBALAMIN 500 MCG TABLET (VITAMIN B-12) PO SCH (08:23)
[2019-10-27] MEDS: MULTIVITAMIN TAB PO SCH (08:23)
[2019-10-27] MEDS: MENTHOL-ZINC OXIDE 360 APPLN/120 GM TUBE EXT PRN (08:24)
[2019-10-27] MEDS ORDERED: THIAMINE HCL 100 MG in SYRINGE 9 ML IV SCH (09:15)
--- NOTE | 2019-10-27 09:21 | Gastroenterology Progress Note ---
Date of Service October 27, 2019 Assessment & Plan (1) Dysphagia: The patient remains alert to person. He is answering yes/no questions. He has demonstrated oropharyngeal dysphagia on previous video swallow September 2019. Due to cognitive status, p.o. intake is not recommended at present time. Dr. Puentes has discussed gastrostomy tube for feeding with the patient's . She was unsure of patient's wishes and planned to attempt to discuss with him. Patient is currently receiving TPN via PICC line. He also continues to receive IV fluids. PUD---continue PPI---elective EGD to document healing or if needs PEG can view at that time. duodenal polyp--reevaulate at time of elective EGD Please refer to addendum by supervising physician for further recommendations. Admission and Anticipated Discharge Date Admission Date: October 20, 2019 Subjective The patient is alert to person, sitting up in bed, watching television. He denies any complaints including nausea, vomiting, abdominal pain. He is unable to tell me where he is. N.p.o. since time of admission. IV fluids continue. NG tube nutrition was attempted and pulled x3 by the patient. TPN infusing via PICC line. Review of Systems Review of Systems: Unobtainable due to cognitive status Physical Exam Constitutional: + ill appearing and + cachectic ENMT: Mouth: + dry oral mucous membranes Neck: trachea midline, no thyromegaly Respiratory: normal respiratory effort, lungs clear to auscultation normal respiratory effort; no respiratory distress and no labored breathing Cardiovascular: RRR, no murmur, no edema Gastrointestinal (Abdomen): Inspection/Auscultation: + hypoactive bowel sounds Percussion/Palpation: abdomen soft; abdomen nontender and no guarding Musculoskeletal: Extremities: + muscle atrophy; no cyanosis Skin: + turgor decreased Neurologic: awake and + confused Results & Data ([facility]) Vital Signs (Past 12 Hours) Vital Signs Temp Pulse Resp BP Pulse Ox 10/27/19 07:33 36.9 C 63 17 115/72 97 10/27/19 03:17 36.7 C 70 16 122/72 93 10/27/19 00:12 36.7 C 76 16 98/62 L 99 Laboratory Results - last 24 hr 10/21/19 10/26/19 10/26/19 06:59 16:15 20:25 Sodium 147 H Potassium 3.5 Chloride 122 H Carbon Dioxide 19 L Anion Gap 6.0 BUN 30 H Creatinine 0.93 Est Cr Clr Drug Dosing 63.2 Est GFR ( Amer) 98.8 Est GFR (Non-Af Amer) 85.2 BUN/Creatinine Ratio 32.5 H Glucose 98 POC Glucose 79 Calcium 8.1 L Phosphorus 2.2 L Magnesium 1.8 Vitamin B1 <6 L 10/27/19 10/27/19 00:01 06:09 Sodium Potassium Chloride Carbon Dioxide Anion Gap BUN Creatinine Est Cr Clr Drug Dosing Est GFR ( Amer) Est GFR (Non-Af Amer) BUN/Creatinine Ratio Glucose POC Glucose 100 H 89 Calcium Phosphorus Magnesium Vitamin B1
[2019-10-27 09:22] LABS: Basophils # (auto) 0.01 K/uL (0-0.2); Basophils % (auto) 0.1 %; Eosinophils # (auto) 0.46 K/uL (0-0.5); Eosinophils % (auto) 6.1 %; Hematocrit (blood only) 30.6 % (42-52); Hemoglobin 9.5 g/dL (14.0-18.0); Immature Granulocytes # (auto) 0.05 K/uL (0.00-0.02); Immature Granulocytes % (auto) 0.7 %; Lymphocytes # (auto) 0.77 K/uL (1.2-3.4); Lymphocytes % (auto) 10.2 %; Mean Corpuscular Hemoglobin 31.5 pg (25-34); Mean Corpuscular Volume 101.3 fL (80-100); Mean Platelet Volume 12.9 fL (7.4-10.4); Monocytes # (auto) 0.26 K/uL (0.11-0.59); Monocytes % (auto) 3.4 %; Neutrophils % (auto) 79.5 %; Platelet Count 144 K/uL (130-400); RDW Coefficient of Variation 18.2 % (11.5-14.5); RDW Standard Deviation 66.5 fL (36.4-46.3); Red Blood Count 3.02 M/uL (4.7-6.1); White Blood Count 7.55 K/uL (4.8-10.8)
[2019-10-27 09:54] LABS: Albumin Level 2.1 gm/dl (3.4-5.0); BUN Creatinine Ratio 39.7 (10-20); Calcium 8.1 mg/dl (8.5-10.1); Creatinine Clr Calc Pharmacy 80.6 ml/min; Est GFR (African American) 111.4; Est GFR (Non-African American) 96.1; Potassium 3.6 mmol/L (3.5-5.1)
[2019-10-27 10:04] LABS: Albumin Globulin Ratio 0.6 (0.9-2); Bilirubin,Total 0.4 mg/dl (0.2-1); Globulin 3.4 gm/dl (2.5-4.0); Total Protein 5.5 gm/dl (6.4-8.2)
--- NOTE | 2019-10-27 10:18 | Nephrology Progress Note ---
Date of Service October 27, 2019 Assessment & Plan (1) Acute hypernatremia: * Corrected w/ D5W infusion * Monitor I&O's. Urine osmolality > 400. Patient is not polyuric * Brain MRI 10/20: No hypothalamic or posterior pituitary injury reported (2) Acute kidney injury: * Corrected w/ IV hydration. Urinalysis has been negative for ATN casts * Monitor PRP. No acute indication for renal US or dialysis at this time * No further Nephrology evaluation indicated at this time. Will sign off. Please call if further assistance is needed (3) Weight loss: * 35 lb weight loss over last 3 months. H/o hemicolectomy * CXR - no acute process * PSA wnl 10/25 * FOBT + x1. * Recommend colonoscopy (4) Encephalopathy: * Thiamine level was undetectable. IV Thiamine ordered * B12 and folate are within normal limits Admission and Anticipated Discharge Date Admission Date: October 20, 2019 Subjective Mr. Tariq was seen & examined in his hospital room this morning. He was sitting up in bed but remains oriented to self only. PPN is currently infusing Review of Systems Review of Systems: Unobtainable due to cognitive status Physical Exam Constitutional: + ill appearing and + cachectic Eyes: PERRL, conjunctivae normal, anicteric sclerae ENMT: Mouth: + dry oral mucous membranes Neck: trachea midline, no thyromegaly Respiratory: normal respiratory effort, lungs clear to auscultation no respiratory distress Cardiovascular: RRR, no murmur, no edema Gastrointestinal (Abdomen): Percussion/Palpation: abdomen soft; abdomen nontender and no guarding Musculoskeletal: Extremities: + muscle atrophy; no cyanosis Skin: + turgor decreased Neurologic: awake and + confused Results & Data ([facility]) Vital Signs (Past 12 Hours) Vital Signs Temp Pulse Resp BP Pulse Ox 10/27/19 07:33 36.9 C 63 17 115/72 97 10/27/19 03:17 36.7 C 70 16 122/72 93 10/27/19 00:12 36.7 C 76 16 98/62 L 99 PG Care Time/CCT Total # of Minutes Spent Total Time Spent with Patient: Total time spent is greater than 50% in coordination of care (as documented) at patient's floor/unit and/or counseling patient: Coding Level of Care Code 15590 Subseq Hosp Care Lvl 3 Diagnoses Acute hypernatremia E87.0 Acute kidney injury N17.9 Weight loss R63.4 Encephalopathy G93.40
[2019-10-27] MEDS: PANTOprazole 40 MG in SYRINGE 0 ML IV SCH (12:12)
--- NOTE | 2019-10-27 15:18 | Pharmacy Report ---
PHA: Parenteral Nutrition Con - Date of Service October 27, 2019 - Scope Pharmacy was consulted on 10/26/19 to manage parenteral nutrition orders for this patient. - Subjective The patient is currently on day 2 of peripheral parenteral nutrition for prolonged malnutrition/weight loss secondary to dysphagia. - Objective Height: 5 ft 8 in Weight: 58 kg Intake & Output (24hrs):: Intake & Output 10/25/19 10/26/19 10/27/19 10/28/19 06:59 06:59 06:59 06:59 Intake Total 1999 / 1999 400 / 400 2122.800 / 2122.800 Output Total 1003 / 1003 776 / 776 1000 / 1000 350 / 350 Balance 997 / 997 -376 / -376 1122.800 / 1122.800 -350 / -350 Weight 57.1 kg 57.2 kg 58 kg 58 kg Laboratory Data (Last 24 Hr):: 10/26/19 10/27/19 20:25 08:55 Sodium 147 H 145 Potassium 3.5 3.6 Chloride 122 H 118 H Carbon Dioxide 19 L 20 L BUN 30 H 29 H Creatinine 0.93 0.74 Glucose 98 102 H Calcium 8.1 L 8.1 L Phosphorus 2.2 L 3.0 Magnesium 1.8 2.0 Total Bilirubin 0.4 AST 26 ALT 24 Alkaline Phosphatase 58 Albumin 2.1 L Triglycerides 222 H Nutrition Assessment:: Please refer to the Notes section of the EMR for the most recent japanese tutor note. - Assessment * PPN well tolerated yesterday via midline * Thiamine 500 mg IV TID added - will remove from PPN * Electrolytes relatively stable, but will maintain current macronutrients for today * If stable again tomorrow - will titrate up on dextrose * Triglyceride level at 220 - will hold lipids for now * Patient and family still trying to decide on gastrostomy tube - Plan For day 2 of PN administration, the following will be ordered: Macronutrients Amino acids 75 grams/day Dextrose 100 grams/day Lipids 0 grams/day Micronutrients Sodium acetate 40 mEq Potassium phosphate 30 mMol Potassium acetate 40 mEq Magnesium sulfate 8.12 mEq Calcium gluconate 4.65 mEq Multivitamins 10 mL Trace Elements 1 mL Additional additives: folic acid 1 mg Total volume 1920 mL to be infused over 24 hrs will provide 640 kcal/day Final osmolarity 732 mOsm/L (maximum for PPN is 900 mOsm/L) Labs, as indicated, will be ordered per protocol Pharmacy will continue to follow and adjust parenteral nutrition orders on a daily basis. Thank you for allowing us to participate in the care of this patient.
[2019-10-27] MEDS: THIAMINE HCL 500 MG in SODIUM CHLORIDE 0.9% 50 ML IV SCH ×2 (15:54→19:59)
[2019-10-27] MEDS ORDERED: CENTRAL PN IV SCH (16:00)
[2019-10-27] MEDS ORDERED: TPN IV SCH (16:00)
--- NOTE | 2019-10-27 19:08 | Hospitalist Progress Note ---
Date of Service October 27, 2019 Assessment & Plan (1) Altered mental status: metabolic encephalopathy acutely - although concerning that he has had ongoing encephalopathic features over several admissions and many weeks - ?chronicity of baseline problem / ?ability to recover -- with finding of undetectable thiamine - a thiamine dominated but overall picture of neurologic dysfunction from malnutrition seems most likely --> given prior EtOH hx probably ran "just enough" level of low - then as weight loss became more manifest and overall manlutrition took effect, disproportionate thiamine deficiency created accentuated delirium picture. --->aggressively relplace thiamine (wernicke type dosing), continue to supplement nutrition - see below -in discussions w PCP the case for more of an acute on chronic picture is worrisome - especially with significant weight loss preceding the current few months of acute illness; LP to be done once possible for completeness, continue to try to get nutrition in, follow closely / supportive care (2) Acute hypernatremia: better - follow (3) Acute kidney injury: ARF present on admission; improving (4) Elevated WBC count: no overt infection. empiric abx held. following but still showing no s/s infection (5) Elevated troponin: probably demand ischemia and poorer renal clearance w ARF (6) Weight loss: multifactorial - concern on subacute to working towards chronic malnutiriton - appearing fairly severe -concern on nutritional status -- right now on PPN - but between thiamine deficiency and risk of refeeding, in multiple discussions w nutrition - for now best to stay at this level and then gradually increase. 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 - ?possibly able to swallow again; getting better hydration and nutrition --> so if needed can also revisit PICC (7) Hypercalcemia: improved, follow (8) DVT prophylaxis: SCDs (9) Discharge planning issues: PT/OT eval and treat Admission and Anticipated Discharge Date Admission Date: October 20, 2019 Subjective alert and interactive but no complaints, no real HPI or ROS - with mentation hard to gauge veracity same on revisit - at bedside, updated Review of Systems Review of Systems: Other see above, negative but questionable due to cognitive status Physical Exam Physical Exam: gen awake and interactive, knows the year but seems to have no idea of location or situation. heent nc at mmm breathing unlabored no accessory muscles good effort skin no rashes no pallor or icterus Results & Data Results & Data ([facility]) Vital Signs (Past 12 Hours) Vital Signs Temp Pulse Resp BP Pulse Ox 10/27/19 15:16 99.0 F 88 20 107/69 98 10/27/19 11:22 98.2 F 78 20 107/80 98 10/27/19 07:33 98.4 F 63 17 115/72 97 PG Care Time/CCT Total # of Minutes Spent Total Time Spent with Patient: Total time spent is greater than 50% in coordination of care (as documented) at patient's floor/unit and/or counseling patient: Coding Level of Care Code 39360 Subseq Hosp Care Lvl 3 Diagnoses Altered mental status R40.1 Altered mental status type: stupor Acute hypernatremia E87.0 Acute kidney injury N17.9 Elevated WBC count D72.829 Elevated troponin R79.89 Weight loss R63.4 Hypercalcemia E83.52 DVT prophylaxis Z29.9 Discharge planning issues Z02.9 (1) Altered mental status Altered mental status type: stupor Qualified Code(s): R40.1 - Stupor
[2019-10-28] MEDS: MULTIVITAMIN TAB PO SCH (07:56)
[2019-10-28] MEDS: CYANOCOBALAMIN 500 MCG TABLET (VITAMIN B-12) PO SCH (07:56)
[2019-10-28] MEDS: MAGNESIUM OXIDE 400 MG TAB PO SCH ×2 (07:56→21:07)
[2019-10-28] MEDS: POTASSIUM CHLORIDE 10 MEQ TABCR PO SCH ×4 (07:57→21:11)
[2019-10-28] MEDS: THIAMINE HCL 500 MG in SODIUM CHLORIDE 0.9% 50 ML IV SCH ×3 (09:15→21:06)
[2019-10-28 09:43] LABS: Eosinophils # (auto) 0.35 K/uL (0-0.5); Eosinophils % (auto) 4.4 %; Hematocrit (blood only) 30.1 % (42-52); Hemoglobin 9.4 g/dL (14.0-18.0); Immature Granulocytes # (auto) 0.04 K/uL (0.00-0.02); Immature Granulocytes % (auto) 0.5 %; Lymphocytes # (auto) 0.99 K/uL (1.2-3.4); Lymphocytes % (auto) 12.4 %; Mean Corpuscular Hemoglobin 32.1 pg (25-34); Mean Corpuscular Hgb Conc 31.2 g/dL (32-36); Mean Corpuscular Volume 102.7 fL (80-100); Mean Platelet Volume 12.2 fL (7.4-10.4); Monocytes # (auto) 0.29 K/uL (0.11-0.59); Monocytes % (auto) 3.6 %; Neutrophils # (auto) 6.33 K/uL (1.4-6.5); Neutrophils % (auto) 79.1 %; Platelet Count 190 K/uL (130-400); RDW Coefficient of Variation 18.4 % (11.5-14.5); RDW Standard Deviation 67.9 fL (36.4-46.3); Red Blood Count 2.93 M/uL (4.7-6.1)
[2019-10-28 10:06] LABS: Albumin Level 2.1 gm/dl (3.4-5.0); BUN Creatinine Ratio 30.7 (10-20); Creatinine Clr Calc Pharmacy 68.2 ml/min; Est GFR (African American) 104.2; Est GFR (Non-African American) 89.9; Magnesium 1.7 mg/dl (1.8-2.4); Potassium 3.6 mmol/L (3.5-5.1)
[2019-10-28 10:07] LABS: BUN Creatinine Ratio 31.2 (10-20); Est GFR (African American) 104.7; Est GFR (Non-African American) 90.4; Potassium 3.6 mmol/L (3.5-5.1)
[2019-10-28 10:09] LABS: Albumin Globulin Ratio 0.6 (0.9-2); Bilirubin,Total 0.4 mg/dl (0.2-1); Globulin 3.3 gm/dl (2.5-4.0); Phosphorus 3.3 mg/dl (2.5-4.9); Total Protein 5.4 gm/dl (6.4-8.2)
[2019-10-28] MEDS: PANTOprazole 40 MG in SYRINGE 0 ML IV SCH (12:48)
--- NOTE | 2019-10-28 14:14 | Progress Notes ---
DATE: 10/28/2019 SUBJECTIVE: The patient seems a little bit more alert today and somewhat more coherent. He is little bit belligerent and when I asked him to try to swallow some water so I could watch him swallow, he refused. He has pulled out 3 nasogastric tubes and when I asked him today if he would allow me to put in a feeding gastrostomy tube, he told me that was no way he was going to let me do that and I asked him how we should improve his hydration and nutritional status and he said, "I am just going to have to eat more." OBJECTIVE: VITAL SIGNS: Show blood pressure 101/64, pulse 90, respirations 18, temperature is 37.1, O2 saturations 98%. ABDOMEN: Shows healing laparoscopic cholecystectomy incisions. There is no pain, mass or hepatosplenomegaly. IMPRESSION AND PLAN: The patient has dysphagia, dehydration, malnutrition, which are improving. Unfortunately, this is an ongoing issue and he is unwilling to accept nasogastric or gastrostomy feeding tubes and long-term hyperalimentation is not a good solution for him because of his risk for infection and at this point, I think it may be prudent to have Palliative Care involved to get an opinion about how to proceed and consider placement for him.
[2019-10-28] MEDS ORDERED: TPN IV SCH (16:00)
[2019-10-28] MEDS ORDERED: CENTRAL PN IV SCH (16:00)
[2019-10-29] MEDS: THIAMINE HCL 500 MG in SODIUM CHLORIDE 0.9% 50 ML IV SCH ×2 (08:01→13:54)
[2019-10-29 08:18] LABS: Eosinophils # (auto) 0.29 K/uL (0-0.5); Eosinophils % (auto) 4.2 %; Hematocrit (blood only) 28.9 % (42-52); Hemoglobin 9.1 g/dL (14.0-18.0); Immature Granulocytes # (auto) 0.04 K/uL (0.00-0.02); Immature Granulocytes % (auto) 0.6 %; Lymphocytes % (auto) 14.3 %; Mean Corpuscular Hemoglobin 31.5 pg (25-34); Mean Corpuscular Hgb Conc 31.5 g/dL (32-36); Mean Platelet Volume 11.7 fL (7.4-10.4); Monocytes # (auto) 0.28 K/uL (0.11-0.59); Neutrophils # (auto) 5.37 K/uL (1.4-6.5); Neutrophils % (auto) 76.9 %; Platelet Count 223 K/uL (130-400); RDW Coefficient of Variation 18.6 % (11.5-14.5); RDW Standard Deviation 67.6 fL (36.4-46.3); Red Blood Count 2.89 M/uL (4.7-6.1); White Blood Count 6.98 K/uL (4.8-10.8)
[2019-10-29] MEDS: POTASSIUM CHLORIDE 10 MEQ TABCR PO SCH ×3 (08:32→16:28)
[2019-10-29] MEDS: MULTIVITAMIN TAB PO SCH (08:33)
[2019-10-29] MEDS: MAGNESIUM OXIDE 400 MG TAB PO SCH ×2 (08:33→21:23)
[2019-10-29] MEDS: CYANOCOBALAMIN 500 MCG TABLET (VITAMIN B-12) PO SCH (08:33)
[2019-10-29 08:53] LABS: BUN Creatinine Ratio 28.1 (10-20); Calcium 8.1 mg/dl (8.5-10.1); Creatinine Clr Calc Pharmacy 63.1 ml/min; Est GFR (African American) 97.5; Est GFR (Non-African American) 84.2; Magnesium 1.9 mg/dl (1.8-2.4); Potassium 3.9 mmol/L (3.5-5.1)
[2019-10-29 08:56] LABS: Albumin Globulin Ratio 0.6 (0.9-2); Bilirubin,Total 0.4 mg/dl (0.2-1); Globulin 3.4 gm/dl (2.5-4.0); Phosphorus 3.3 mg/dl (2.5-4.9); Total Protein 5.4 gm/dl (6.4-8.2)
--- NOTE | 2019-10-29 10:25 | Progress Notes ---
DATE: 10/29/2019 SUBJECTIVE: The patient seems a little bit more coherent today and cooperative. I actually did convince him to swallow sip of water through a straw and it seemed to go down just fine without any coughing or regurgitation. He reports no abdominal pain. OBJECTIVE: His vital signs are normal. He is afebrile. Room air saturation 98%. IMPRESSION AND PLAN: The patient continues to suffer with recurrent malnutrition and dehydration at home. The patient is currently receiving peripheral hyperalimentation and I talked to Dr. Coombs today about how to proceed as far as providing adequate nutrition and fluid out of the hospital. He will talk to the patient's and then I will later to try to figure out the best approach. The patient yesterday was unwilling to accept a gastrostomy tube, but his mental status is not reliable. We will continue to try to plan a regime for him to provide adequate nutrition going forward.
[2019-10-29] MEDS: PANTOprazole 40 MG in SYRINGE 0 ML IV SCH (12:32)
[2019-10-29] MEDS ORDERED: TPN IV SCH (16:00)
[2019-10-29] MEDS ORDERED: CENTRAL PN IV SCH (16:00)
--- NOTE | 2019-10-29 19:08 | Hospitalist Progress Note ---
Date of Service October 29, 2019 Assessment & Plan (1) Altered mental status: metabolic encephalopathy acutely - although concerning that he has had ongoing encephalopathic features over several admissions and many weeks - ?chronicity of baseline problem / ?ability to recover -- with finding of undetectable thiamine - a thiamine dominated but overall picture of neurologic dysfunction from malnutrition seems most likely --> given prior EtOH hx probably ran "just enough" level of low - then as weight loss became more manifest and overall manlutrition took effect, disproportionate thiamine deficiency created accentuated delirium picture. --->aggressively replacing thiamine (wernicke type dosing), continue to supplement nutrition - see below -in discussions w PCP the case for more of an acute on chronic picture is worrisome - especially with significant weight loss preceding the current few months of acute illness; LP to be done once possible for completeness, continue to try to get nutrition in, follow closely / supportive care (2) Weight loss: multifactorial - concern on subacute to working towards chronic malnutiriton - appearing fairly severe -concern on nutritional status -- right now on PPN - but between thiamine deficiency and risk of refeeding, in multiple discussions w nutrition - for now best to stay at this level and then gradually increase. ----for care home - in discussion w speech he has both trouble w swallowing and esophageal motility. probably best course of action would be PEG and then as he gets better nourished and for longer, then can trial PO intake as he gets stronger. this carries risk of him pulling it out. alternate would be cautiously trying to feed him w risk of aspiration and dysmotility raising pneumonia risk significantly. lastly, surgical access for care home TPN seems like poor choice. after discussions w - we agree PEG best course. d/w dr mendez - so he can call and discuss/consent/etc since patient does not have capacity to make decisions. (3) Acute hypernatremia: better - follow (4) Acute kidney injury: ARF present on admission; improving (5) Elevated WBC count: no overt infection. empiric abx held. 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 later revisited - present - extensive discussions on situation and possible options - see plan - but basically proceeding w PEG once possible is main course of action Review of Systems Review of Systems: Unobtainable due to cognitive status Physical Exam Physical Exam: gen awake and pleasant but disoriented, nad heent nc at mmm breathing unlabored no accessory muscles good effort skin no rashes no pallor or icterus neuro no focal deficits Results & Data Results & Data ([facility]) Vital Signs (Past 12 Hours) Vital Signs Temp Pulse Resp BP Pulse Ox 10/29/19 15:26 98.6 F 88 17 101/66 96 10/29/19 11:35 98.6 F 92 H 20 101/71 100 10/29/19 07:35 98.2 F 77 18 98/66 L 98 PG Care Time/CCT Total # of Minutes Spent Total Time Spent with Patient: Total time spent is greater than 50% in coordination of care (as documented) at patient's floor/unit and/or counseling patient: Coding Level of Care Code 73831 Subseq Hosp Care Lvl 3 Diagnoses Altered mental status R40.1 Altered mental status type: stupor Weight loss R63.4 Acute hypernatremia E87.0 Acute kidney injury N17.9 Elevated WBC count D72.829 Elevated troponin R79.89 Hypercalcemia E83.52 DVT prophylaxis Z29.9 Discharge planning issues Z02.9 (1) Altered mental status Altered mental status type: stupor Qualified Code(s): R40.1 - Stupor
[2019-10-30] MEDS: MAGNESIUM OXIDE 400 MG TAB PO SCH ×2 (07:59→19:05)
[2019-10-30] MEDS: CYANOCOBALAMIN 500 MCG TABLET (VITAMIN B-12) PO SCH (07:59)
[2019-10-30 08:44] LABS: Albumin Level 2.1 gm/dl (3.4-5.0); Calcium 8.3 mg/dl (8.5-10.1); Creatinine Clr Calc Pharmacy 73.2 ml/min; Est GFR (African American) 107.3; Est GFR (Non-African American) 92.6; Potassium 4.2 mmol/L (3.5-5.1)
[2019-10-30 08:47] LABS: Albumin Globulin Ratio 0.5 (0.9-2); Bilirubin,Total 0.4 mg/dl (0.2-1); Globulin 3.8 gm/dl (2.5-4.0); Phosphorus 3.3 mg/dl (2.5-4.9); Total Protein 5.9 gm/dl (6.4-8.2)
[2019-10-30 09:00] LABS: Eosinophils # (auto) 0.28 K/uL (0-0.5); Hemoglobin 10.5 g/dL (14.0-18.0); Immature Granulocytes # (auto) 0.03 K/uL (0.00-0.02); Immature Granulocytes % (auto) 0.5 %; Lymphocytes # (auto) 1.23 K/uL (1.2-3.4); Lymphocytes % (auto) 21.8 %; Mean Corpuscular Hemoglobin 31.3 pg (25-34); Mean Corpuscular Hgb Conc 30.9 g/dL (32-36); Mean Corpuscular Volume 101.2 fL (80-100); Monocytes # (auto) 0.24 K/uL (0.11-0.59); Monocytes % (auto) 4.2 %; Neutrophils # (auto) 3.87 K/uL (1.4-6.5); Neutrophils % (auto) 68.5 %; Platelet Count 228 K/uL (130-400); Red Blood Count 3.36 M/uL (4.7-6.1); White Blood Count 5.65 K/uL (4.8-10.8)
[2019-10-30] MEDS: THIAMINE HCL 250 MG in SODIUM CHLORIDE 0.9% 50 ML IV SCH (09:13)
--- NOTE | 2019-10-30 09:18 | Gastroenterology Progress Note ---
Date of Service October 30, 2019 Assessment & Plan (1) Dysphagia: Patient is currently receiving TPN via PICC line. Per report, is agreeable to gastrostomy tube placement. Will discuss with hospitalist and today. Please refer to supervising physician addendum for further recommendations. Admission and Anticipated Discharge Date Admission Date: October 20, 2019 Subjective The patient is alert to person and place and is more conversant once awakened. He denies any complaints including nausea, vomiting, abdominal pain. N.p.o. since time of admission. TPN infusing via PICC line. Per most recent hospitalist note, agreeable to gastrostomy tube placement Review of Systems Review of Systems: Unobtainable due to cognitive status Physical Exam Constitutional: + ill appearing and + cachectic ENMT: Mouth: + dry oral mucous membranes Neck: trachea midline, no thyromegaly Respiratory: normal respiratory effort; no respiratory distress and no labored breathing Cardiovascular: RRR, no murmur, no edema Gastrointestinal (Abdomen): Inspection/Auscultation: + hypoactive bowel sounds Percussion/Palpation: abdomen soft; abdomen nontender and no guarding Musculoskeletal: Extremities: + muscle atrophy; no cyanosis Skin: + turgor decreased Neurologic: awake and + confused Results & Data ([facility]) Vital Signs (Past 12 Hours) Vital Signs Temp Pulse Resp BP Pulse Ox 10/30/19 07:14 36.8 C 84 18 100/63 97 10/29/19 23:11 36.9 C 76 18 102/64 96 Laboratory Results - last 24 hr 10/29/19 10/30/19 10/30/19 23:50 06:12 07:29 WBC 5.65 RBC 3.36 L Hgb 10.5 L Hct 34.0 L MCV 101.2 H MCH 31.3 MCHC 30.9 L Plt Count 228 Immature Gran % (Auto) 0.5 Neut % (Auto) 68.5 Lymph % (Auto) 21.8 Gilmer % (Auto) 4.2 Eos % (Auto) 5.0 Baso % (Auto) 0.0 Neut # (Auto) 3.87 Lymph # (Auto) 1.23 Gilmer # (Auto) 0.24 Eos # (Auto) 0.28 Baso # (Auto) 0.00 Immature Gran # (Auto) 0.03 H Sodium Potassium Chloride Carbon Dioxide Anion Gap BUN Creatinine Est Cr Clr Drug Dosing Est GFR ( Amer) Est GFR (Non-Af Amer) BUN/Creatinine Ratio Glucose POC Glucose 107 H 99 Calcium Phosphorus Magnesium Total Bilirubin AST ALT Alkaline Phosphatase Total Protein Albumin Globulin Albumin/Globulin Ratio 10/30/19 07:29 WBC RBC Hgb Hct MCV MCH MCHC Plt Count Immature Gran % (Auto) Neut % (Auto) Lymph % (Auto) Gilmer % (Auto) Eos % (Auto) Baso % (Auto) Neut # (Auto) Lymph # (Auto) Gilmer # (Auto) Eos # (Auto) Baso # (Auto) Immature Gran # (Auto) Sodium 143 Potassium 4.2 Chloride 111 H Carbon Dioxide 26 Anion Gap 6.0 BUN 23 H Creatinine 0.81 Est Cr Clr Drug Dosing 73.2 Est GFR ( Amer) 107.3 Est GFR (Non-Af Amer) 92.6 BUN/Creatinine Ratio 28.0 H Glucose 88 POC Glucose Calcium 8.3 L Phosphorus 3.3 Magnesium 2.0 Total Bilirubin 0.4 AST 18 ALT 20 Alkaline Phosphatase 64 Total Protein 5.9 L Albumin 2.1 L Globulin 3.8 Albumin/Globulin Ratio 0.5 L
[2019-10-30] MEDS: PANTOprazole 40 MG in SYRINGE 0 ML IV SCH (11:44)
--- NOTE | 2019-10-30 12:29 | Pharmacy Report ---
PHA: Parenteral Nutrition Con - Date of Service October 30, 2019 - Scope Pharmacy was consulted on 10/26/2019 to manage parenteral nutrition orders for this patient. - Subjective The patient is currently on day #5 of peripheral parenteral nutrition for weight loss secondary to dysphagia. - Objective Height: 5 ft 8 in Weight: 57.7 kg Diet: NPO Intake & Output (24hrs):: Intake & Output 10/28/19 10/29/19 10/30/19 10/31/19 06:59 06:59 06:59 06:59 Intake Total 2029 / 2084 52.5 / 52.5 Output Total 1201 / 1201 1101 / 1101 1475 / 1475 Balance 829 / 829 984 / 984 555 / 555 52.5 / 52.5 Weight 57.7 kg Laboratory Data (Last 24 Hr):: 10/30/19 07:29 Sodium 143 Potassium 4.2 Chloride 111 H Carbon Dioxide 26 BUN 23 H Creatinine 0.81 Glucose 88 Calcium 8.3 L Phosphorus 3.3 Magnesium 2.0 Total Bilirubin 0.4 AST 18 ALT 20 Alkaline Phosphatase 64 Albumin 2.1 L Nutrition Assessment:: Please refer to the Notes section of the EMR for the 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 - Assessment 10/29: * PPN infusing into midline * Thiamine 250 mg IV daily ordered outside of the bag * Magnesium oxide 400 mg PO BID * Continue with current macros today - will increase dextrose to goal tomorrow * Possibility of PEG tube placement depending on patient and 's wishes. - Plan For day # 5 of PPN administration, the following will be ordered: Macronutrients Amino acids 75 grams/day Dextrose 150 grams/day No Lipids secondary to hypertriglyceridemia - ordered with AM labs Micronutrients Sodium chloride 20 mEq Sodium acetate 20 mEq Potassium phosphate 24 mMol Potassium acetate 60 mEq Magnesium sulfate 12.18 mEq Calcium gluconate 4.65 mEq Multivitamins 10 mL Trace Elements 1 mL Folic acid 1 mg Total volume 1900 mL to be infused over 24 hrs will provide 810 kcal/day Final osmolarity 888 mOsm/L (maximum for PPN is 900 mOsm/L) Labs, as indicated, will be ordered per protocol Pharmacy will continue to follow and adjust parenteral nutrition orders on a daily basis. Thank you for allowing us to participate in the care of this patient.
--- NOTE | 2019-10-30 12:50 | History & Physical Report ---
Date of Service October 30, 2019 Assessment & Plan Admission and Anticipated Discharge Date Admission Date: October 20, 2019 History of Present Illness Chief Complaint: rectal bleeding Primary Care Provider: Lobito Orourke Jr, DO For colonoscopy Allergies Allergy/AdvReac Type Severity Reaction Status Date / Time bee venom protein (honey bee) Allergy Severe ANAPHYLACTIC Verified 10/20/19 21:07 REACTION A CHILD Home Medications Home Medications Medication Instructions Recorded Confirmed Type amlodipine 10 mg PO DAILY 08/14/19 10/20/19 History epinephrine [EpiPen] 0.3 mg IM DIRECTED PRN 08/14/19 10/20/19 History losartan 100 mg PO DAILY 08/14/19 10/20/19 History potassium chloride 20 meq PO DAILY #1200 ml 08/28/19 10/20/19 Rx acetaminophen 500 mg PO QID PRN 10/20/19 10/20/19 History omeprazole 40 mg PO BID 10/20/19 10/20/19 History Past Med/Surg History Medical History SHAGGY (acute kidney injury) Chronic back pain Electrolyte abnormality Clinically consistent with dehydration, NSAID use, uric acid nephropathy, and ATN. Tolerating IVF well. Creatinine continues to improve. Uremia also improving with management. Free water deficit persist (~4.5 L). Unable to tolerate medications or fluids by mouth. IVF switched to 1/4 NaCl + 20 KCl @ 200 ml/h yesterday evening. Urine appropriately alkaline. Noted UA crystals in urine yesterday AM. Serum UA level improving. Hypokalemia and hypophosphatemia noted. magnesium falling. K phos x 30 mmol IV ordered. Will continue to monitor labs twice daily and replace as needed. No adjustment to IVF infusion at this time. 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
[2019-10-30] MEDS ORDERED: CENTRAL PN IV SCH (16:00)
[2019-10-30] MEDS ORDERED: TPN IV SCH (16:00)
--- NOTE | 2019-10-30 17:24 | Progress Notes ---
DATE: 10/30/2019 The patient appears to be more awake and coherent today. We discussed his various options as far as providing hydration and nutrition, which he is surely missing as an outpatient. I did have a long conversation with his as well over the phone and she said that usually he cooks but he has not really done that for the last 2 or 3 months. They have been heating [employer] instant meals and he has not been eating those. He just eats some applesauce or pudding and sometimes he has been vomiting at home. I think it is unlikely that he would be successful in maintaining his hydration and nutrition at home without any kind of supplementary help. She said that he would be very unlikely to be willing to go to a custodial and if it is possible that he could get home sooner with a gastrostomy tube as a backup. She thinks he would probably be very willing to do that and as I discussed that with him earlier today, he seemed willing to accept that. It does not preclude him from eating, but it does provide some insurance that if he does not eat, he will not get dehydrated or malnourished. His going to talk to him this evening and hopefully if he is willing to agree we will hopefully be able to put in a gastrostomy tube may be tomorrow afternoon. It is not clear yet whether he will sign a consent of his will need to, but hopefully she can clarify that tonight for us. In the meantime, we will plan on possibly putting a gastrostomy tube in tomorrow afternoon.
[2019-10-30] MEDS: ACETAMINOPHEN 1,000 MG/100 ML VIAL IV PRN (18:31)
--- NOTE | 2019-10-30 22:35 | Hospitalist Progress Note ---
Date of Service October 30, 2019 Assessment & Plan (1) Altered mental status: metabolic encephalopathy acutely - although concerning that he has had ongoing encephalopathic features over several admissions and many weeks - ?chronicity of baseline problem / ?ability to recover -- with finding of undetectable thiamine - a thiamine dominated but overall picture of neurologic dysfunction from malnutrition seems most likely --> given prior EtOH hx probably ran "just enough" level of low - then as weight loss became more manifest and overall manlutrition took effect, disproportionate thiamine deficiency created accentuated delirium picture. --->aggressively replacing thiamine (wernicke type dosing), continue to supplement nutrition - see below -in discussions w PCP the case for more of an acute on chronic picture is worrisome - especially with significant weight loss preceding the current few months of acute illness; LP to be done once possible for completeness, continue to try to get nutrition in, follow closely / supportive care On 10/29, first day seeing patient, patient appears less confused. Awaiting input from GI over possible feeding tube. and patient appear to agree on feeding tube. (2) Weight loss: multifactorial - concern on subacute to working towards chronic malnutiriton - appearing fairly severe -concern on nutritional status -- right now on PPN - but between thiamine deficiency and risk of refeeding, in multiple discussions w nutrition - for now best to stay at this level and then gradually increase. ----for half-way - in discussion w speech he has both trouble w swallowing and esophageal motility. probably best course of action would be PEG and then as he gets better nourished and for longer, then can trial PO intake as he gets stronger. this carries risk of him pulling it out. alternate would be cautiously trying to feed him w risk of aspiration and dysmotility raising pneumonia risk significantly. 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 after discussions w - we agree PEG best course. d/w dr mendez - so he can call and discuss/consent/etc since patient does not have capacity to make decisions. (3) Acute hypernatremia: better - follow (4) Acute kidney injury: ARF present on admission; improving (5) Elevated WBC count: no overt infection. empiric abx held. following but still showing no s/s infection (6) Elevated troponin: probably demand ischemia and poorer renal clearance w ARF (7) Hypercalcemia: improved, follow (8) DVT prophylaxis: SCDs (9) Discharge planning issues: PT/OT eval and treat stable for medical anticipate ongoing prolonged hospital stay for now since he'll need PEG, then gradual increase in diet, then ?SNF eventually with long, half-way goal of home Admission and Anticipated Discharge Date Admission Date: October 20, 2019 Subjective Patient is awake and interactive. He has no new complaints and is hoping he gets feeding tube tomorrow. Review of Systems Review of Systems: All systems reviewed & are unremarkable except as noted in HPI & below Physical Exam Constitutional: WD/WN, vitals as above in no acute distress, pleasant, knows year, and place. He is interactive today. Respiratory: normal respiratory effort, lungs clear to auscultation Cardiovascular: RRR, no murmur, no edema Gastrointestinal (Abdomen): normal bowel sounds, soft, nontender, no hepatosplenomegaly Results & Data Results & Data ([facility]) Vital Signs (Past 12 Hours) Vital Signs Temp Pulse Resp BP Pulse Ox 10/30/19 22:00 36.7 C 80 18 105/69 94 10/30/19 15:57 37.1 C 88 18 92/59 L 97 PG Care Time/CCT Total # of Minutes Spent Total Time Spent with Patient: Total time spent is greater than 50% in coordination of care (as documented) at patient's floor/unit and/or counseling patient: Coding Level of Care Code 57262 Subseq Hosp Care Lvl 3 Diagnoses Altered mental status R40.1 Altered mental status type: stupor Weight loss R63.4 Acute hypernatremia E87.0 Acute kidney injury N17.9 Elevated WBC count D72.829 Elevated troponin R79.89 Hypercalcemia E83.52 DVT prophylaxis Z29.9 Discharge planning issues Z02.9 Time Spent (min) 35 Comment chart review (1) Altered mental status Altered mental status type: stupor Qualified Code(s): R40.1 - Stupor
[2019-10-31 07:00] LABS: Calcium 8.2 mg/dl (8.5-10.1); Creatinine Clr Calc Pharmacy 87.2 ml/min; Est GFR (African American) 115.3; Est GFR (Non-African American) 99.5; Magnesium 1.9 mg/dl (1.8-2.4); Potassium 4.1 mmol/L (3.5-5.1)
[2019-10-31 07:01] LABS: Phosphorus 3.2 mg/dl (2.5-4.9)
[2019-10-31] MEDS: MAGNESIUM OXIDE 400 MG TAB PO SCH ×2 (08:08→17:24)
[2019-10-31] MEDS: CYANOCOBALAMIN 500 MCG TABLET (VITAMIN B-12) PO SCH (08:08)
--- NOTE | 2019-10-31 08:58 | Gastroenterology Progress Note ---
Date of Service October 31, 2019 Assessment & Plan (1) Dysphagia: Patient is currently receiving TPN via PICC line. Patient and are agreeable to gastrostomy tube placement by Dr. Puentes today. Maintain NPO. Cefazolin 1gm IV preop. Please refer to supervising physician addendum for further recommendations. Admission and Anticipated Discharge Date Admission Date: October 20, 2019 Subjective The patient is much more alert today. He is conversant. Alert to person and place. He denies any complaints including nausea, vomiting, abdominal pain. N.p.o. since time of admission. TPN infusing via PICC line. Patient and are agreeable to gastrostomy tube placement. Will plan for today. Review of Systems Review of Systems: All systems reviewed & are unremarkable except as noted in HPI & below Physical Exam Constitutional: + ill appearing and + cachectic ENMT: Mouth: + dry oral mucous membranes Neck: trachea midline, no thyromegaly Respiratory: normal respiratory effort, lungs clear to auscultation normal respiratory effort; no respiratory distress and no labored breathing Cardiovascular: RRR, no murmur, no edema Gastrointestinal (Abdomen): Inspection/Auscultation: normal bowel sounds Percussion/Palpation: abdomen soft; abdomen nontender and no guarding Musculoskeletal: Extremities: + muscle atrophy; no cyanosis Skin: + turgor decreased Neurologic: awake and + confused Results & Data ([facility]) Vital Signs (Past 12 Hours) Vital Signs Temp Pulse Resp BP Pulse Ox 10/31/19 07:08 36.6 C 75 16 102/65 98 10/30/19 22:00 36.7 C 80 18 105/69 94 Laboratory Results - last 24 hr 10/30/19 10/30/19 10/31/19 07:29 11:45 00:24 WBC 5.65 RBC 3.36 L Hgb 10.5 L Hct 34.0 L MCV 101.2 H MCH 31.3 MCHC 30.9 L Plt Count 228 Immature Gran % (Auto) 0.5 Neut % (Auto) 68.5 Lymph % (Auto) 21.8 Crane % (Auto) 4.2 Eos % (Auto) 5.0 Baso % (Auto) 0.0 Neut # (Auto) 3.87 Lymph # (Auto) 1.23 Crane # (Auto) 0.24 Eos # (Auto) 0.28 Baso # (Auto) 0.00 Immature Gran # (Auto) 0.03 H Sodium Potassium Chloride Carbon Dioxide Anion Gap BUN Creatinine Est Cr Clr Drug Dosing Est GFR ( Amer) Est GFR (Non-Af Amer) BUN/Creatinine Ratio Glucose POC Glucose 108 H 106 H Calcium Phosphorus Magnesium Triglycerides 10/31/19 10/31/19 10/31/19 05:57 05:57 05:59 WBC RBC Hgb Hct MCV MCH MCHC Plt Count Immature Gran % (Auto) Neut % (Auto) Lymph % (Auto) Crane % (Auto) Eos % (Auto) Baso % (Auto) Neut # (Auto) Lymph # (Auto) Crane # (Auto) Eos # (Auto) Baso # (Auto) Immature Gran # (Auto) Sodium 141 Potassium 4.1 Chloride 107 Carbon Dioxide 28 Anion Gap 6.0 BUN 23 H Creatinine 0.68 Est Cr Clr Drug Dosing 87.2 Est GFR ( Amer) 115.3 Est GFR (Non-Af Amer) 99.5 BUN/Creatinine Ratio 33.0 H Glucose 94 POC Glucose 101 H Calcium 8.2 L Phosphorus 3.2 Magnesium 1.9 Triglycerides 153 H 10/31/19 07:53 WBC RBC Hgb Hct MCV MCH MCHC Plt Count Immature Gran % (Auto) Neut % (Auto) Lymph % (Auto) Crane % (Auto) Eos % (Auto) Baso % (Auto) Neut # (Auto) Lymph # (Auto) Crane # (Auto) Eos # (Auto) Baso # (Auto) Immature Gran # (Auto) Sodium Potassium Chloride Carbon Dioxide Anion Gap BUN Creatinine Est Cr Clr Drug Dosing Est GFR ( Amer) Est GFR (Non-Af Amer) BUN/Creatinine Ratio Glucose POC Glucose 108 H Calcium Phosphorus Magnesium Triglycerides
[2019-10-31] MEDS: THIAMINE HCL 250 MG in SODIUM CHLORIDE 0.9% 50 ML IV SCH (09:52)
[2019-10-31] MEDS: PANTOprazole 40 MG in SYRINGE 0 ML IV SCH (10:48)
--- NOTE | 2019-10-31 11:22 | Anesthesiology Consultation ---
Date of Service October 31, 2019 Assessment & Plan (1) Encounter for pre-operative examination: Chart Review Chart Review: Acceptable Risk for Surgery History Surgery Operation Date: 10/31/19 08:30 Proposed Procedures p Esophagogastroduodenoscopy with Gastric Tube Placement Dr Deloris Puentes Height/Weight Height: 5 ft 8 in Weight: 57.7 kg Allergies Allergy/AdvReac Type Severity Reaction Status Date / Time bee venom protein (honey bee) Allergy Severe ANAPHYLACTIC Verified 10/20/19 21:07 REACTION A CHILD Medications Home Medications Medication Instructions Recorded Confirmed Last Taken amlodipine 10 mg PO DAILY 08/14/19 10/20/19 Unknown epinephrine [EpiPen] 0.3 mg IM DIRECTED PRN 08/14/19 10/20/19 Unknown losartan 100 mg PO DAILY 08/14/19 10/20/19 Unknown potassium chloride 20 meq PO DAILY #1200 ml 08/28/19 10/20/19 Unknown acetaminophen 500 mg PO QID PRN 10/20/19 10/20/19 Unknown omeprazole 40 mg PO BID 10/20/19 10/20/19 Unknown Active Medications Generic Name Dose Route Start Last Admin Trade Name Freq PRN Reason Stop Dose Admin Calamine/Phenol 1 appln 10/25/19 00:32 10/27/19 08:24 Menthol-Zinc Oxide 360 Appln/120 Gm Tube EXT 11/24/19 00:31 1 appln QID PRN Administration Rash Cyanocobalamin 500 mcg 10/25/19 09:00 10/31/19 08:08 Cyanocobalamin 500 Mcg Tablet (Vitamin B-12) PO 11/24/19 08:59 Not Given QAM GRADY Pantoprazole Sodium 40 mg/ 10 mls @ 5 mls/min 10/25/19 11:00 10/31/19 10:48 Syringe IV 11/24/19 10:59 5 mls/min DAILY@1100 GRADY Administration Thiamine HCl 250 mg/ Sodium 52.5 mls @ 208 mls/hr 10/30/19 09:00 10/31/19 10:17 Chloride IV 11/29/19 08:59 Infused QAM GRADY Infusion Nutrition (Parenteral) 1,900 1,900 mls @ 79.167 mls/hr 10/30/19 16:00 10/30/19 16:26 ml/ TPN BAG IV 10/31/19 15:59 80 mls/hr .Q24H GRADY Administration Protocol Acetaminophen 1,000 mg in 100 mls @ 400 mls/hr 10/30/19 18:15 10/30/19 18:49 Ofirmev IV 11/02/19 18:14 Infused Q8H PRN Infusion Pain Magnesium Oxide 400 mg 10/23/19 21:00 10/31/19 08:08 Magnesium Oxide 400 Mg Tab PO 11/22/19 20:59 Not Given BID GRADY Past Medical History Medical History SHAGGY (acute kidney injury) Chronic back pain Electrolyte abnormality Clinically consistent with dehydration, NSAID use, uric acid nephropathy, and ATN. Tolerating IVF well. Creatinine continues to improve. Uremia also improving with management. Free water deficit persist (~4.5 L). Unable to tolerate medications or fluids by mouth. IVF switched to 1/4 NaCl + 20 KCl @ 200 ml/h yesterday evening. Urine appropriately alkaline. Noted UA crystals in urine yesterday AM. Serum UA level improving. Hypokalemia and hypophosphatemia noted. magnesium falling. K phos x 30 mmol IV ordered. Will continue to monitor labs twice daily and replace as needed. No adjustment to IVF infusion at this time. Hematemesis Hypertension Thrombocytopenia Vomiting Past Surgical History Surgical History H/O right hemicolectomy Social History Smoking Status: Former smoker Smoking End Date: 2018 Hx Alcohol Use: No Hx Substance Use: No Physical Exam Vital Signs Last Vital Signs Temp 36.6 C 10/31/19 07:08 Pulse 75 10/31/19 07:08 Resp 16 10/31/19 07:08 BP 102/65 10/31/19 07:08 Pulse Ox 98 10/31/19 07:08 Testing Laboratory Results 10/30/19 07:29 10/31/19 05:57 PT 12.1 Seconds (9.0-12.0) H 10/26/19 06:05 INR 1.2 (0.9-1.1) H 10/26/19 06:05 APTT 29.5 Seconds (21.0-31.0) 10/20/19 19:06 Hemoglobin A1c 5.4 % (4.5-5.6) 10/20/19 23:57 Urine Color Yellow 10/21/19 03:55 Urine Appearance Clear (Clear) 10/21/19 03:55 Urine pH 5.0 (4.5-7.5) 10/21/19 03:55 Ur Specific [facility] >= 1.030 (1.000-1.030) 10/21/19 03:55 Urine Protein Trace (Negative) H 10/21/19 03:55 Urine Glucose (UA) Negative (Negative) 10/21/19 03:55 Urine Ketones Negative (Negative) 10/21/19 03:55 Urine Nitrite Negative (Negative) 10/21/19 03:55 Ur Leukocyte Esterase Negative (Negative) 10/21/19 03:55 Urine RBC >30 /hpf (0-4) H 10/21/19 03:55 Urine WBC 5-10 /hpf (0-5) H 10/21/19 03:55 Ur Epithelial Cells 5-10 /lpf (0-5) H 10/21/19 03:55 10/20/19 18:53 Aerobic Blood Culture - Final Blood No growth in Aerobic bottle after 5 days. Anaerobic Blood Culture - Final 10/20/19 19:06 Aerobic Blood Culture - Final Blood No growth in Aerobic bottle after 5 days. Anaerobic Blood Culture - Final No growth in Anaerobic bottle after 5 days. 10/31/19 10/31/19 10/31/19 07:53 05:59 00:24 POC Glucose 108 H 101 H 106 H Electrocardiogram Date: 10/20/19 Findings: + ST @ (103) Echocardiogram Date: 10/21/19 EF: 55-60 LV Function: normal Valvular Disease: + no significant valvular disease
[2019-10-31] MEDS ORDERED: ceFAZolin 1000MG 1,000 MG/7.5 ML SYR IV ONE (12:00)
--- NOTE | 2019-10-31 13:41 | History & Physical Report ---
Date of Service October 31, 2019 Assessment & Plan Admission and Anticipated Discharge Date Admission Date: October 20, 2019 History of Present Illness Chief Complaint: Malnutrition, dehydration Primary Care Provider: Lobito Orourke Jr, DO For EGD with PEG placement Allergies Allergy/AdvReac Type Severity Reaction Status Date / Time bee venom protein (honey bee) Allergy Severe ANAPHYLACTIC Verified 10/20/19 21:07 REACTION A CHILD Home Medications Home Medications Medication Instructions Recorded Confirmed Type amlodipine 10 mg PO DAILY 08/14/19 10/20/19 History epinephrine [EpiPen] 0.3 mg IM DIRECTED PRN 08/14/19 10/20/19 History losartan 100 mg PO DAILY 08/14/19 10/20/19 History potassium chloride 20 meq PO DAILY #1200 ml 08/28/19 10/20/19 Rx acetaminophen 500 mg PO QID PRN 10/20/19 10/20/19 History omeprazole 40 mg PO BID 10/20/19 10/20/19 History Past Med/Surg History Medical History SHAGGY (acute kidney injury) Chronic back pain Electrolyte abnormality Clinically consistent with dehydration, NSAID use, uric acid nephropathy, and ATN. Tolerating IVF well. Creatinine continues to improve. Uremia also improving with management. Free water deficit persist (~4.5 L). Unable to tolerate medications or fluids by mouth. IVF switched to 1/4 NaCl + 20 KCl @ 200 ml/h yesterday evening. Urine appropriately alkaline. Noted UA crystals in urine yesterday AM. Serum UA level improving. Hypokalemia and hypophosphatemia noted. magnesium falling. K phos x 30 mmol IV ordered. Will continue to monitor labs twice daily and replace as needed. No adjustment to IVF infusion at this time. Hematemesis Hypertension Thrombocytopenia Vomiting Surgical History H/O right hemicolectomy Social History Smoking Status: Former smoker Smoking End Date: 2018; Second Hand Exposure: No; Hx Alcohol Use: No Hx Substance Use: No Preferred Language: Yoruba Communication Ability: Impaired Fire Regulator Required: No Beliefs That Will Affect Care: None Current Living Situation: Spouse Other Information That Helps Us Care for You: No Feels Safe at Home: Yes Safety Concerns: Feels Safe At This Time Physical Exam Constitutional: + thin Respiratory: normal respiratory effort Cardiovascular: Rate/Rhythm: regular rate and regular rhythm Gastrointestinal (Abdomen): Percussion/Palpation: abdomen soft lap amy scars Results & Data ([facility]) Vital Signs (Past 12 Hours) Vital Signs Temp Pulse Resp BP Pulse Ox 10/31/19 13:28 37.2 C 83 18 102/74 97 10/31/19 07:08 36.6 C 75 16 102/65 98
[2019-10-31] MEDS ORDERED: SODIUM CHLORIDE 0.9% 1000ML 1,000 ML IV SCH (13:45)
[2019-10-31] MEDS ORDERED: PROPOFOL IV EMULSION 10 MG/ML 20 ML VIAL IV ONE ×2 (14:28→14:37)
[2019-10-31] MEDS ORDERED: LIDOCAINE HCL 2% 2 ML VIAL/AMP(20MG/ML) INFIL ONE (14:37)
--- NOTE | 2019-10-31 14:38 | GI REPORT ---
Patient Name: Federico Tariq Procedure Date: 10/31/2019 1:44 PM Date of : 1955 Admit Type: Inpatient Age: 64 Gender: Male Attending MD: Karl Puentes MD Procedure: Upper GI endoscopy Providers: Karl Puentes MD Referring MD: Teofilo Garibay Md Indications: Failure to thrive, Malnutrition Medicines: Propofol total dose 200 mg IV, Lidocaine 60 mg IV, Ancef 1000 mg IV Complications: No immediate complications. Estimated Blood Loss: Estimated blood loss was minimal. Procedure: Pre-Anesthesia Assessment: - Prior to the procedure, a History and Physical was performed, and patient medications, allergies and sensitivities were reviewed. The patient's tolerance of previous anesthesia was reviewed. - The risks and benefits of the procedure and the sedation options and risks were discussed with the patient. All questions were answered and informed consent was obtained. After obtaining informed consent, the endoscope was passed under direct vision. Throughout the procedure, the patient's blood pressure, pulse, and oxygen saturations were monitored continuously. The Endoscope was introduced through the mouth, and advanced to the second part of duodenum. The upper GI endoscopy was accomplished without difficulty. The patient tolerated the procedure well. Findings: Fluid was found in the entire esophagus. One benign-appearing, intrinsic moderate stenosis was found 40 cm from the incisors. The stenosis was traversed. The examined duodenum was normal. The entire examined stomach was normal. Placement of an externally removable PEG with no T-fasteners was successfully completed. The external bumper was at the 3.0 cm marking on the tube. Estimated blood loss was minimal. Impression: - Fluid in the esophagus. - Benign-appearing esophageal stenosis. - Normal examined duodenum. - Normal stomach. - An externally removable PEG placement was successfully completed. - No specimens collected. Recommendation: - Return patient to hospital [facility] for ongoing care. Karl Puentes M.D. Karl Puentes MD 10/31/2019 2:38:34 PM This report has been signed electronically. Note Initiated On: 10/31/2019 1:44 PM Number of Addenda: 0 I attest to the content of the Intraoperative Record and orders documented therein, exceptions below {[id number]}
--- NOTE | 2019-10-31 15:08 | Progress Notes ---
DATE: 10/31/2019 The patient agreed to proceed with an endoscopy with PEG tube placement today. He was given a preprocedure dose of Ancef 1 gram IV. The patient was brought to the endoscopy unit and the abdomen was shaved and a 20-Kyrgyz PEG tube was placed in the left upper quadrant without difficulty. The patient tolerated the procedure well and can proceed with using the tube later today. Dietary will be consulted for tube feeding schedules. Of note is that the patient did seem to have a lot of secretions in his esophagus and a relatively tight LES raising the question about possible achalasia. At this point, I do not plan on pursuing that until his nutritional parameters improved significantly.
--- NOTE | 2019-10-31 15:23 | Anesthesiology Progress Note ---
Date of Service October 31, 2019 Anesthesia Post Procedure Vital Signs Vital Signs: Temp Pulse Resp BP Pulse Ox 10/31/19 15:00 99 H 20 104/70 93 10/31/19 14:45 99 H 20 113/71 100 10/31/19 14:30 106 H 20 106/69 93 10/31/19 13:28 37.2 C 83 18 102/74 97 10/31/19 07:08 36.6 C 75 16 102/65 98 10/30/19 22:00 36.7 C 80 18 105/69 94 10/30/19 15:57 37.1 C 88 18 92/59 L 97 Pain Intensity Posterior Neck: Pain Intensity: 0 Transfer of Care Handoff Completed per policy Notes Mental Status: alert / awake / arousable Patient Amnestic to Procedure: Yes Nausea / Vomiting: adequately controlled Pain: adequately controlled Airway Patency, RR, SpO2: stable & adequate BP & HR: stable & adequate Hydration State: stable & adequate Anesthetic Complications: no major complications apparent
[2019-10-31] MEDS ORDERED: ONDANSETRON INJ 2 MG/ML 2 ML VIAL IV PRN (15:47)
--- NOTE | 2019-10-31 15:52 | Neurology Progress Note ---
Date of Service October 31, 2019 Assessment & Plan (1) Dysphagia: (2) Altered mental status: Federico Tariq is a 64 yo man w/ PMH of alcohol abuse, HTN, neck spasms, recent cholecystectomy and GERD who p/t [facility] on 10/21/19 after being found down by , found to have SHAGGY, tropenemia, macrocytic anemia, TCP. 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 Should he worsen despite nutritional supplementation, would obtain an EEG first. There are no signs of CJD on MRI to warrant more urgent LP (and no clear signs of infection currently). - he should follow up in the outpatient clinic with Dr Martinez or LISA Orozco, after placement in SNF vs rehab and improved nutritional status for more formal memory testing Thank you for this interesting consult. Plan of care discussed with primary team. Please call or text with questions. 35 minutes was spent [id number] with patient, reviewing prior workup, and talking with care team, with more than 50% spent on counseling/coordination of care. (3) Thiamine deficiency: Admission and Anticipated Discharge Date Admission Date: October 20, 2019 Subjective NAEs overnight. Went for PEG tube placement today. Reports he is doing well post-procedure. He is not interested in having an LP performed at this time, despite having a dry tap on 10/26/2019. Reviewed previous testing. Has ongoing anemia with hemoglobin 10.5 and MCV 101.2. His most recent BMP is relatively unremarkable with BUN 23 and creatinine 0.68. Other notable labs includes A1c 5.4, calcium low at 8.2, phosphorus 3.2, magnesium 1.9, ferritin elevated at 1446.1, ammonia less than 10, CK 61, thiamine less than 6, B12 847, folate 10.08 (was 4.57 in August 2019), TSH suppressed at 0.112, GISELE negative, COVID negative, ANCA negative, varicosis DNA negative. MRI brain independently reviewed and shows mild to moderate cerebellar atrophy, mild small vessel disease with dilated perivascular spaces, small chronic lacunar infarct in the left frontal lobe, no acute infarct, normal midline structures. Reviewed prior MRI brain from September 2019 that is not c/b motion artifact; does have T2 hyperintensity along the cerebral aqueduct, splenium of the corpus callosum and along the third ventricle. No microhemorrhages or prior ICH noted. Review of Systems Review of Systems: 10 point review of systems completed and negative except as in HPI. Results & Data ([facility]) Vital Signs (Past 12 Hours) Vital Signs Temp Pulse Resp BP Pulse Ox 10/31/19 15:37 36.8 C 105 H 21 101/62 93 10/31/19 15:00 99 H 20 104/70 93 10/31/19 14:45 99 H 20 113/71 100 10/31/19 14:30 106 H 20 106/69 93 10/31/19 13:28 37.2 C 83 18 102/74 97 10/31/19 07:08 36.6 C 75 16 102/65 98 Exam (Neuro) Physical Exam: General Exam: GEN: NAD, sitting in bed. HEENT: No conjunctival injection, no rhinorrhea. CV: RRR, no peripheral edema PULM: Nonlabored respirations on room air. Neuro Exam: MS: Awake and Alert. Oriented to person, place, not date. Speech fluent and appropriate without dysarthria or paraphasic errors. Language intact including naming, comprehension, repetition. Cognition and memory mildly impaired. Attention intact. No neglect. CN: Visual crews full. No extinction to double simultaneous stimuli. Unable to visualize fundi on fundoscopic exam. PERRLA OU. EOMI without nystagmus. Facial sensation intact to LT. Facial muscles full and symmetric. Hearing intact to co nversation. Uvula midline with symmetric palatal elevation. Shoulder shrug normal. Tongue midline. MOTOR: Normal bulk and tone. No pronator drift. BUE strength 5/5 at deltoids, biceps, triceps, and hand grasp bilaterally. BLE strength 5/5 at hamstrings, quadriceps, tibialis anterior, and gastrocnemius bilaterally. REFLEXES: 1+ at biceps, triceps, brachioradialis, absent patella and absent Achilles bilaterally. Flexor plantar responses bilaterally. No clonus or Kaur's noted. SENSORY: Intact to LT without extinction to double simultaneous stimuli. COORDINATION: No dysmetria or ataxia on [id number] bilaterally. Normal Brant bilaterally. GAIT: deferred given physical status PG Care Time/CCT Total # of Minutes Spent Total Time Spent with Patient: Total time spent is greater than 50% in coordination of care (as documented) at patient's floor/unit and/or counseling patient: Coding Level of Care Code 79243 Subseq Hosp Care Lvl 3 Diagnoses Dysphagia R13.10 Altered mental status R40.1 Altered mental status type: stupor Thiamine deficiency E51.9 (1) Altered mental status Altered mental status type: stupor Qualified Code(s): R40.1 - Stupor
--- NOTE | 2019-10-31 15:55 | Hospitalist Progress Note ---
Date of Service October 31, 2019 Assessment & Plan (1) Altered mental status: Metabolic encephalopathy. He has had ongoing encephalopathic features over several admissions and many weeks - ?chronicity of baseline problem / ?ability to recover. - Thiamine was <6 on 10/21/2019. -> Aggressively replacing thiamine (Wernicke dosing) 250 mg IV daily - In discussions with PCP, more of an acute on chronic picture is worrisome - especially with significant weight loss preceding the current few months of acute illness. - Patient is definitely worse than when I saw him back in 08/2019. (2) Weight loss: Multifactorial - concern on subacute to working towards chronic [place] - appearing fairly severe. - Presently on TPN - PEG placed on 10/[address] Puentes -> Will start tube feedings today or tomorrow. (3) Acute kidney injury: Cr up to 9.7 present on admission (10/20/2019). - Now down to 0.7. (4) DVT prophylaxis: SCDs Admission and Anticipated Discharge Date Admission Date: October 20, 2019 Subjective Doing ok today. Denies any stomach pain, nausea, shortness of breath. Reports no fevers/chills, chest pain, or vomiting. Physical Exam Constitutional: WD/WN, vitals as above Eyes: EOM intact bilaterally; no conjunctival abnormality ENMT: external ear and nose normal, oropharynx normal Neck: trachea midline, no thyromegaly normal visual inspection Respiratory: normal respiratory effort, lungs clear to auscultation no respiratory distress Cardiovascular: RRR, no murmur, no edema Gastrointestinal (Abdomen): Inspection/Auscultation: abdomen normal to inspect ion; abdomen not distended Musculoskeletal: no cyanosis or clubbing, extremities motor strength 5/5 Skin: no rashes, warm and dry Neurologic: moves all extremities and awake Psychiatric: Orientation: alert, oriented to person and cooperative Results & Data Results & Data ([facility]) Vital Signs (Past 12 Hours) Vital Signs Temp Pulse Resp BP Pulse Ox 10/31/19 15:37 36.8 C 105 H 21 101/62 93 10/31/19 15:00 99 H 20 104/70 93 10/31/19 14:45 99 H 20 113/71 100 10/31/19 14:30 106 H 20 106/69 93 10/31/19 13:28 37.2 C 83 18 102/74 97 10/31/19 07:08 36.6 C 75 16 102/65 98 PG Care Time/CCT Total # of Minutes Spent Total Time Spent with Patient: Total time spent is greater than 50% in coordination of care (as documented) at patient's floor/unit and/or counseling patient: Coding Level of Care Code 82443 Subseq Hosp Care Lvl 2 Diagnoses Altered mental status R40.1 Altered mental status type: stupor Weight loss R63.4 Acute kidney injury N17.9 DVT prophylaxis Z29.9 (1) Altered mental status Altered mental status type: stupor Qualified Code(s): R40.1 - Stupor
[2019-10-31] MEDS ORDERED: Custom Peripheral Pn 1,900 ML in TPN BAG 0 ML IV SCH (16:00)
[2019-10-31] MEDS: ACETAMINOPHEN 1,000 MG/100 ML VIAL IV PRN (16:37)
[2019-10-31] MEDS ORDERED: PEPTAMEN 1.5 CAL 1,000 ML BAG GT SCH (20:00)
[2019-11-01 06:31] LABS: Hematocrit (blood only) 27.6 % (42-52); Hemoglobin 8.7 g/dL (14.0-18.0); Mean Corpuscular Hemoglobin 31.6 pg (25-34); Mean Corpuscular Hgb Conc 31.5 g/dL (32-36); Mean Corpuscular Volume 100.4 fL (80-100); Mean Platelet Volume 10.4 fL (7.4-10.4); Platelet Count 253 K/uL (130-400); RDW Coefficient of Variation 18.1 % (11.5-14.5); RDW Standard Deviation 66.4 fL (36.4-46.3); Red Blood Count 2.75 M/uL (4.7-6.1)
[2019-11-01 07:02] LABS: BUN Creatinine Ratio 31.4 (10-20); Calcium 8.2 mg/dl (8.5-10.1); Creatinine Clr Calc Pharmacy 88.5 ml/min; Est GFR (Non-African American) 100.1; Potassium 3.8 mmol/L (3.5-5.1)
[2019-11-01 07:03] LABS: Phosphorus 2.9 mg/dl (2.5-4.9)
--- NOTE | 2019-11-01 08:16 | Anesthesiology Progress Note ---
Date of Service November 01, 2019 Anesthesia Post Procedure Vital Signs Vital Signs: Temp Pulse Pulse Resp BP Pulse Ox 11/01/19 07:23 37.1 C 81 18 104/66 96 10/31/19 23:00 36.7 C 80 18 105/68 96 10/31/19 16:42 37 C 91 H 18 101/63 95 10/31/19 16:09 36.8 C 97 H 22 98/64 L 90 10/31/19 15:37 36.8 C 105 H 21 101/62 93 10/31/19 15:00 99 H 20 104/70 93 10/31/19 14:45 99 H 20 113/71 100 10/31/19 14:30 106 H 20 106/69 93 10/31/19 13:28 37.2 C 83 18 102/74 97 Pain Intensity Posterior Neck: Pain Intensity: 0 Notes Mental Status: alert / awake / arousable Patient Amnestic to Procedure: Yes Nausea / Vomiting: adequately controlled Pain: adequately controlled Airway Patency, RR, SpO2: stable & adequate BP & HR: stable & adequate Hydration State: stable & adequate Anesthetic Complications: no major complications apparent and Pt Satisfied with anesthetic care
--- NOTE | 2019-11-01 08:30 | Gastroenterology Progress Note ---
Date of Service November 01, 2019 Assessment & Plan (1) Dysphagia: Discontinue PPN. Start tube feedings per RD recommendations. Maintain NPO. PT/OT evaluations as ordered as patient and would like patient discharged to home and this may not be a safe plan for patient. Please refer to supervising physician addendum for further recommendations. Admission and Anticipated Discharge Date Admission Date: October 20, 2019 Subjective The patient is alert and conversant this morning. He is watching television sitting up in bed. Alert to person and place. States he wants a drink of water and to go home. States he has some discomfort at his gastrostomy tube site and a headache. He denies complaints including nausea, vomiting, abdominal pain. N.p.o. since time of admission. Last bowel movement was this morning. Patient was evaluated by RD yesterday and recommendations were given for continuous feedings. Per nursing, these were not started last night. Review of Systems Review of Systems: All systems reviewed & are unremarkable except as noted in Subjective Physical Exam Constitutional: + ill appearing and + cachectic ENMT: Mouth: + dry oral mucous membranes Neck: trachea midline, no thyromegaly Respiratory: normal respiratory effort, lungs clear to auscultation normal respiratory effort; no respiratory distress and no labored breathing Cardiovascular: RRR, no murmur, no edema Gastrointestinal (Abdomen): Inspection/Auscultation: normal bowel sounds Percussion/Palpation: abdomen soft; abdomen nontender and no guarding gastrostomy tube intact with minimal drainage and no redness noted Musculoskeletal: Extremities: + muscle atrophy; no cyanosis Skin: + turgor decreased Neurologic: awake and + confused Results & Data ([facility]) Vital Signs (Past 12 Hours) Vital Signs Temp Pulse Pulse Resp BP Pulse Ox 11/01/19 07:23 37.1 C 81 18 104/66 96 10/31/19 23:00 36.7 C 80 18 105/68 96 Laboratory Results - last 24 hr 10/31/19 10/31/19 10/31/19 05:57 13:14 17:50 WBC RBC Hgb Hct MCV MCH MCHC RDW Std Deviation RDW Coeff of Kaleigh Plt Count MPV Sodium Potassium Chloride Carbon Dioxide Anion Gap BUN Creatinine Est Cr Clr Drug Dosing Est GFR ( Amer) Est GFR (Non-Af Amer) BUN/Creatinine Ratio Glucose POC Glucose 100 H 115 H Calcium Phosphorus Magnesium Triglycerides 153 H 11/01/19 11/01/19 11/01/19 00:20 06:17 06:17 WBC 6.30 RBC 2.75 L Hgb 8.7 L Hct 27.6 L MCV 100.4 H MCH 31.6 MCHC 31.5 L RDW Std Deviation 66.4 H RDW Coeff of Kaleigh 18.1 H Plt Count 253 MPV 10.4 Sodium 138 Potassium 3.8 Chloride 105 Carbon Dioxide 28 Anion Gap 5.0 BUN 21 H Creatinine 0.67 Est Cr Clr Drug Dosing 88.5 Est GFR ( Amer) 116.0 Est GFR (Non-Af Amer) 100.1 BUN/Creatinine Ratio 31.4 H Glucose 99 POC Glucose 104 H Calcium 8.2 L Phosphorus 2.9 Magnesium 2.0 Triglycerides
[2019-11-01] MEDS: CYANOCOBALAMIN 500 MCG TABLET (VITAMIN B-12) PO SCH (09:42)
[2019-11-01] MEDS: MAGNESIUM OXIDE 400 MG TAB PO SCH ×2 (09:42→20:48)
[2019-11-01] MEDS: THIAMINE HCL 250 MG in SODIUM CHLORIDE 0.9% 50 ML IV SCH (09:42)
[2019-11-01] MEDS: PEPTAMEN 1.5 CAL 1,000 ML BAG GT SCH (09:52)
[2019-11-01] MEDS: ACETAMINOPHEN 1,000 MG/100 ML VIAL IV PRN (10:16)
[2019-11-01] MEDS: PANTOprazole 40 MG in SYRINGE 0 ML IV SCH (12:58)
--- NOTE | 2019-11-01 14:22 | Hospitalist Progress Note ---
Date of Service November 01, 2019 Assessment & Plan (1) Altered mental status: Metabolic encephalopathy. He has had ongoing encephalopathic features over several admissions and many weeks - ?chronicity of baseline problem / ?ability to recover. - Thiamine was <6 on 10/21/2019. -> Aggressively replacing thiamine (Wernicke dosing) 250 mg IV daily - In discussions with PCP, more of an acute on chronic picture is worrisome - especially with significant weight loss preceding the current few months of acute illness. - Patient is definitely worse than when I saw him back in 08/2019. Discussed with . No real official diagnosis other than possibly Wernicke's. (2) Weight loss: Multifactorial - concern on subacute to working towards chronic malnutiriton - appearing fairly severe. - Presently on TPN - PEG placed on 10/[address] Puentes -> Will start tube feedings today. Tolerating well. Stopping TPN. (3) Acute kidney injury: Cr up to 9.7 present on admission (10/20/2019). - Now down to 0.7. (4) DVT prophylaxis: SCDs Admission and Anticipated Discharge Date Admission Date: October 20, 2019 Subjective Reports some headache and mild pain in the G-tube area, but overall doing well. Reports no fevers/chills, chest pain, shortness of breath, nausea, or vomiting. Physical Exam Constitutional: WD/WN, vitals as above Eyes: EOM intact bilaterally; no conjunctival abnormality ENMT: external ear and nose normal, oropharynx normal Neck: trachea midline, no thyromegaly normal visual inspection Respiratory: normal respiratory effort, lungs clear to auscultation no respiratory distress Cardiovascular: RRR, no murmur, no edema Gastrointestinal (Abdomen): Inspection/Auscultation: normal bowel sounds; + abdomen abnormal to inspection (G-tube present) and abdomen not distended Percussion/Palpation: + abdomen tender and abdomen soft; no guarding and abdomen not rigid Musculoskeletal: no cyanosis or clubbing, extremities motor strength 5/5 Skin: no rashes, warm and dry Neurologic: moves all extremities and awake Psychiatric: Orientation: alert, oriented to person and cooperative Results & Data Results & Data ([facility]) Vital Signs (Past 12 Hours) Vital Signs Temp Pulse Resp BP Pulse Ox 11/01/19 07:23 37.1 C 81 18 104/66 96 PG Care Time/CCT Total # of Minutes Spent Total Time Spent with Patient: Total time spent is greater than 50% in coordination of care (as documented) at patient's floor/unit and/or counseling patient: Coding Level of Care Code 74168 Subseq Hosp Care Lvl 2 Diagnoses Altered mental status R40.1 Altered mental status type: stupor Weight loss R63.4 Acute kidney injury N17.9 DVT prophylaxis Z29.9 (1) Altered mental status Altered mental status type: stupor Qualified Code(s): R40.1 - Stupor
--- NOTE | 2019-11-01 15:53 | Progress Notes ---
DATE: 11/01/2019 Progress note supplement to Rosa López's note: I saw the patient today who appears to be awake, alert, and coherent. His gastrostomy tube has been in since yesterday afternoon and he is a little bit sore, but tolerating his tube feedings well. The tube is in good position and there are no signs of any local inflammation or infection. IMPRESSION: The patient should be ready to go home as soon as he can get his feedings arranged at home with nurse assistance. He may have some underlying achalasia and if he is willing to go to [place] for esophageal manometry, we may arrange that as an outpatient at some point. Please contact if any further gastrointestinal input is needed.
[2019-11-02 08:06] LABS: Hematocrit (blood only) 27.4 % (42-52); Hemoglobin 8.8 g/dL (14.0-18.0); Mean Corpuscular Hemoglobin 32.2 pg (25-34); Mean Corpuscular Hgb Conc 32.1 g/dL (32-36); Mean Corpuscular Volume 100.4 fL (80-100); Mean Platelet Volume 10.1 fL (7.4-10.4); Platelet Count 249 K/uL (130-400); RDW Coefficient of Variation 17.9 % (11.5-14.5); RDW Standard Deviation 65.6 fL (36.4-46.3); Red Blood Count 2.73 M/uL (4.7-6.1); White Blood Count 6.06 K/uL (4.8-10.8)
[2019-11-02 08:37] LABS: Albumin Level 1.9 gm/dl (3.4-5.0); BUN Creatinine Ratio 25.1 (10-20); Calcium 8.3 mg/dl (8.5-10.1); Creatinine Clr Calc Pharmacy 88.2 ml/min; Est GFR (Non-African American) 100.1; Magnesium 1.8 mg/dl (1.8-2.4); Potassium 3.6 mmol/L (3.5-5.1)
[2019-11-02 08:40] LABS: Albumin Globulin Ratio 0.5 (0.9-2); Bilirubin,Total 0.4 mg/dl (0.2-1); Globulin 3.7 gm/dl (2.5-4.0); Phosphorus 2.6 mg/dl (2.5-4.9); Total Protein 5.6 gm/dl (6.4-8.2)
[2019-11-02] MEDS: THIAMINE HCL 250 MG in SODIUM CHLORIDE 0.9% 50 ML IV SCH (09:21)
[2019-11-02] MEDS: CYANOCOBALAMIN 500 MCG TABLET (VITAMIN B-12) PO SCH (09:23)
[2019-11-02] MEDS: MAGNESIUM OXIDE 400 MG TAB PO SCH ×2 (09:23→21:43)
[2019-11-02] MEDS: PANTOprazole 40 MG in SYRINGE 0 ML IV SCH (11:22)
[2019-11-02] MEDS: ACETAMINOPHEN 1,000 MG/100 ML VIAL IV PRN (11:33)
--- NOTE | 2019-11-02 15:41 | Hospitalist Progress Note ---
Date of Service November 02, 2019 Assessment & Plan (1) Altered mental status: Metabolic encephalopathy. He has had ongoing encephalopathic features over several admissions and many weeks - ?chronicity of baseline problem / ?ability to recover. - Thiamine was <6 on 10/21/2019. -> Aggressively replacing thiamine (Wernicke dosing) 250 mg IV daily - In discussions with PCP, more of an acute on chronic picture is worrisome - especially with significant weight loss preceding the current few months of acute illness. - Patient is definitely worse than when I saw him back in 08/2019. Discussed with . No real official diagnosis other than possibly Wernicke's. No change today. (2) Weight loss: Multifactorial - concern on subacute to working towards chronic mal[place]-BOL[place]edic[place] - appearing fairly severe. - PEG placed on 10/[address] Puentes -> Tolerating tube feeds well. Stopped TPN. - Continue feeds and vitamins. (3) Acute kidney injury: Cr up to 9.7 present on admission (10/20/2019). - Now down to 0.7. (4) DVT prophylaxis: SCDs Admission and Anticipated Discharge Date Admission Date: October 20, 2019 Subjective No major issues. Tired. I woke him up from a nap, and he felt that I should not have. Reports no fevers/chills, chest pain, shortness of breath, abdominal pain, nausea, or vomiting. Physical Exam Constitutional: WD/WN, vitals as above Eyes: EOM intact bilaterally; no conjunctival abnormality ENMT: external ear and nose normal, oropharynx normal Neck: trachea midline, no thyromegaly normal visual inspection Respiratory: normal respiratory effort, lungs clear to auscultation no respiratory distress Cardiovascular: RRR, no murmur, no edema Gastrointestinal (Abdomen): Inspection/Auscultation: normal bowel sounds; + abdomen abnormal to inspection (G-tube present) and abdomen not distended Percussion/Palpation: + abdomen tender and abdomen soft; no guarding and abdomen not rigid Musculoskeletal: no cyanosis or clubbing, extremities motor strength 5/5 Skin: no rashes, warm and dry Neurologic: moves all extremities and awake Psychiatric: Orientation: alert, oriented to person and cooperative Results & Data Results & Data ([facility]) Vital Signs (Past 12 Hours) Vital Signs Temp Pulse Resp BP Pulse Ox 11/02/19 07:18 36.8 C 90 16 94/56 L 95 PG Care Time/CCT Total # of Minutes Spent Total Time Spent with Patient: Total time spent is greater than 50% in coordina tion of care (as documented) at patient's floor/unit and/or counseling patient: Coding Level of Care Code 36127 Subseq Hosp Care Lvl 2 Diagnoses Altered mental status R40.1 Altered mental status type: stupor Weight loss R63.4 Acute kidney injury N17.9 DVT prophylaxis Z29.9 (1) Altered mental status Altered mental status type: stupor Qualified Code(s): R40.1 - Stupor
[2019-11-02] MEDS: PEPTAMEN 1.5 CAL 1,000 ML BAG GT SCH (17:26)
[2019-11-03] MEDS ORDERED: ACETAMINOPHEN 1,000 MG/100 ML VIAL IV STA (00:19)
[2019-11-03] MEDS: CYANOCOBALAMIN 500 MCG TABLET (VITAMIN B-12) PO SCH (08:47)
[2019-11-03] MEDS: MAGNESIUM OXIDE 400 MG TAB PO SCH ×2 (08:47→20:30)
[2019-11-03] MEDS: THIAMINE HCL 250 MG in SODIUM CHLORIDE 0.9% 50 ML IV SCH (08:50)
[2019-11-03] MEDS: PANTOprazole 40 MG in SYRINGE 0 ML IV SCH (11:40)
--- NOTE | 2019-11-03 15:54 | Hospitalist Progress Note ---
Date of Service November 03, 2019 Assessment & Plan (1) Cough: New cough and fever. - CXR, blood cultures. If CXR positive, will start abx. (2) Altered mental status: Metabolic encephalopathy. He has had ongoing encephalopathic features over several admissions and many weeks - ?chronicity of baseline problem / ?ability to recover. - Thiamine was <6 on 10/21/2019. -> Aggressively replacing thiamine (Wernicke dosing) 250 mg IV daily - In discussions with PCP, more of an acute on chronic picture is worrisome - especially with significant weight loss preceding the current few months of acute illness. - Patient is definitely worse than when I saw him back in 08/2019. Discussed with . No real official diagnosis other than possibly Wernicke's. No change today. (3) Weight loss: Multifactorial - concern on subacute to working towards chronic malnutiriton - appearing fairly severe. - PEG placed on 10/[address] Puentes -> Tolerating tube feeds well. Stopped TPN. - Continue feeds and vitamins. (4) Acute kidney injury: Cr up to 9.7 present on admission (10/20/2019). - Now down to 0.7. (5) DVT prophylaxis: SCDs Admission and Anticipated Discharge Date Admission Date: October 20, 2019 Subjective No major concerns in the morning. In the afternoon, had a fever with new cough. Reports no fevers/chills, chest pain, shortness of breath, abdominal pain, nausea, or vomiting. Physical Exam Constitutional: WD/WN, vitals as above Eyes: EOM intact bilaterally; no conjunctival abnormality ENMT: external ear and nose normal, oropharynx normal Neck: trachea midline, no thyromegaly normal visual inspection Respiratory: normal respiratory effort, lungs clear to auscultation no respiratory distress Cardiovascular: RRR, no murmur, no edema Gastrointestinal (Abdomen): Inspection/Auscultation: normal bowel sounds; + abdomen abnormal to inspection (G-tube present) and abdomen not distended Percussion/Palpation: + abdomen tender and abdomen soft; no guarding and abdomen not rigid Musculoskeletal: no cyanosis or clubbing, extremities motor strength 5/5 Skin: no rashes, warm and dry Neurologic: moves all extremities and awake Psychiatric: Orientation: alert, oriented to person and cooperative Results & Data Results & Data ([facility]) Vital Signs (Past 12 Hours) Vital Signs Temp Pulse Resp BP Pulse Ox 11/03/19 15:29 38.7 C H 11/03/19 15:11 38.0 C H 102 H 20 100/62 95 11/03/19 08:00 36.6 C 93 H 16 96/63 L 97 PG Care Time/CCT Total # of Minutes Spent Total Time Spent with Patient: Total time spent is greater than 50% in coordination of care (as documented) at patient's floor/unit and/or counseling patient: Coding Level of Care Code 21098 Subseq Hosp Care Lvl 3 Diagnoses Cough R05 Altered mental status R40.1 Altered mental status type: stupor Weight loss R63.4 Acute kidney injury N17.9 DVT prophylaxis Z29.9 (1) Altered mental status Altered mental status type: stupor Qualified Code(s): R40.1 - Stupor
[2019-11-03 16:40] LABS: Basophils # (auto) 0.02 K/uL (0-0.2); Basophils % (auto) 0.3 %; Eosinophils # (auto) 0.06 K/uL (0-0.5); Hematocrit (blood only) 28.5 % (42-52); Hemoglobin 8.8 g/dL (14.0-18.0); Immature Granulocytes # (auto) 0.05 K/uL (0.00-0.02); Immature Granulocytes % (auto) 0.8 %; Lymphocytes # (auto) 0.86 K/uL (1.2-3.4); Lymphocytes % (auto) 13.9 %; Mean Corpuscular Hemoglobin 31.5 pg (25-34); Mean Corpuscular Hgb Conc 30.9 g/dL (32-36); Mean Corpuscular Volume 102.2 fL (80-100); Mean Platelet Volume 10.6 fL (7.4-10.4); Monocytes # (auto) 0.35 K/uL (0.11-0.59); Monocytes % (auto) 5.7 %; Neutrophils # (auto) 4.83 K/uL (1.4-6.5); Neutrophils % (auto) 78.3 %; Platelet Count 288 K/uL (130-400); RDW Coefficient of Variation 17.7 % (11.5-14.5); RDW Standard Deviation 66.5 fL (36.4-46.3); Red Blood Count 2.79 M/uL (4.7-6.1); White Blood Count 6.17 K/uL (4.8-10.8)
[2019-11-03] MEDS: ACETAMINOPHEN SOLN 650 MG/20.3 ML UDC GT PRN (16:41)
--- NOTE | 2019-11-03 17:11 | XRay Report ---
XR chest 2V PA/lateral CLINICAL HISTORY: Cough, fever COMPARISON STUDY: 10/20/2019 FINDINGS: The cardiac and mediastinal contours are normal. There is no evidence of focal pulmonary co nsolidation. There is no evidence of failure. No pleural effusions are visualized.[Arthritic changes are present within both shoulders. IMPRESSION: No active disease in the chest. ACT 112: Negative or not required by law. Electronically signed by: Frandy Palacios M.D. 11/03/2019 5:09 PM
--- NOTE | 2019-11-03 22:09 | XRay Report ---
GASTROSTOMY TUBE CHECK CLINICAL HISTORY: Evaluate placement of gastrostomy tube COMPARISON STUDY: No previous studies for comparison. FINDINGS: Inventory Assistant film reveals surgical clips within the right upper quadrant. There is a left upper qu adrant gastrostomy tube. 50 cc Optiray 300 was instilled through the gastrostomy tube. The gastrostom y tube is located within the stomach. There is no extravasation. IMPRESSION: The patient's gastrostomy tube is positioned within the stomach. No contrast extravasati on was visualized. ACT 112: Negative or not required by law. Electronically signed by: Frandy Palacios M.D. 11/03/2019 10:07 PM
[2019-11-04 04:36] LABS: Appearance Urine Clear (Clear); Bilirubin Urine Negative (Negative); Blood Urine Negative (Negative); Color Urine Yellow; Glucose Urine UA Negative (Negative); Ketones Urine Negative (Negative); Leukocyte Esterase Urine Negative (Negative); Nitrite Urine Negative (Negative); Protein Urine Negative (Negative); Specific Gravity Urine 1.017 (1.000-1.030); Urobilinogen Urine Negative (Negative)
[2019-11-04] MEDS ORDERED: VANCOMYCIN CONSULT ACTIVE PRN (06:27)
--- NOTE | 2019-11-04 06:29 | Communication Note ---
Date of Service: November 04, 2019 Notified that 2/2 blood cultures drawn on 11/02 grew gram + cocci. Speciation pending. Blood MRSA PCR positive. Started IV vancomycin with 20mg/kg loading dose.
[2019-11-04] MEDS ORDERED: VANCOMYCIN HCL 1,500 MG in SODIUM CHLORIDE 0.9% 500 ML IV ONE (06:45)
[2019-11-04 08:01] LABS: Creatinine Clr Calc Pharmacy 101.9 ml/min; Est GFR (African American) 123.1; Est GFR (Non-African American) 106.2
[2019-11-04] MEDS: LANSOPRAZOLE 15 MG SOLTAB GT SCH (08:35)
[2019-11-04] MEDS: THIAMINE HCL 100 MG TAB PEG SCH (08:35)
[2019-11-04] MEDS: MAGNESIUM OXIDE 400 MG TAB PO SCH ×2 (08:35→20:37)
[2019-11-04] MEDS: CYANOCOBALAMIN 500 MCG TABLET (VITAMIN B-12) PO SCH (08:35)
--- NOTE | 2019-11-04 10:17 | Pharmacy Report ---
Pharmacy Abx Initial Consult - Date of Service November 04, 2019 - Pharmacy Dosing Scope Date of Consult: 11/04/19 Consultation requested by: Deb Camejo Pharmacy is consulted to initiate Vancomycin IV dosing therapy, order appropriate labs and adjust drug dose/frequency. - Subjective The patient is a 64 year old M admitted on 10/20/19 21:16. - Objective Height: 5 ft 8 in Weight: 57.5 kg Vital Signs (Past 12hrs): Vital Signs Temp Pulse Resp BP Pulse Ox 11/04/19 07:31 38.2 C H 97 H 20 100/66 94 11/03/19 22:20 36.8 C 71 18 110/72 97 Lab Results (24hrs): Laboratory Tests (24 Hours) 11/04/19 11/03/19 11/03/19 06:57 16:23 16:23 WBC 6.17 Neut # (Auto) 4.83 Creatinine 0.58 L Est Cr Clr Drug Dosing 101.9 Procalcitonin 0.20 Micro Results: 10/20/19 18:53 Aerobic Blood Culture - Final Blood No growth in Aerobic bottle after 5 days. Anaerobic Blood Culture - Final 10/20/19 19:06 Aerobic Blood Culture - Final Blood No growth in Aerobic bottle after 5 days. Anaerobic Blood Culture - Final No growth in Anaerobic bottle after 5 days. - Risk Factors for Resistance * Hospitalization for 48 hours or more within the past 90 days * Current hospitalization > 5 days - Assessment & Plan Assessment 64 year old M started on Vancomycin for Bacteremia. Blood cultures positive for G positive cocci. Identification pending. Recent hospital admission in August. Current admission 15 days already. Coverage for MRSA indicated. Plan Vancomycin IV * Estimated PK Parameters: Vd 0.7 L/kg, Raji 0.075 hr-1, t1/2 9.2 hr * Loading dose: 1500 mg (25 mg/kg) * Maintenance dose: 1000 mg IV (17 mg/kg) every 12 hours * Goal trough level for Bacteremia: 15 to 20 mcg/mL * Trough Vancomycin level ordered for 11/06/19 before dose at 6 am. Pharmacy will continue to follow and will adjust dose/frequency as necessary. Thank you.
--- NOTE | 2019-11-04 15:30 | Hospitalist Progress Note ---
Date of Service November 04, 2019 Assessment & Plan (1) MRSA bacteremia: Cultured on 11/02 with rapid growth of 4/4 bottles with MRSA. No clear source other than right foot IV site which looked mildly red. PEG site looks clean without erythema or pus. No other rashes or focal infection site. - Re-culture today. - Echo ordered - Continue vancomycin -> Will likely need prolonged IV antibiotics. (2) Dysphagia: Has had nausea and vomiting since August 2019. Initially thought to be due to gastric ulcer, but it never really improved, and he was brought back to the hospital multiple times for dehydration and hypernatremia. - EGD with Dr. Puentes showed lots of secretions and a tight lower esophageal sphincter. - Thought this could be achalasia. Will need manometry study at [place]; likely as outpatient. (3) Altered mental status: Metabolic encephalopathy. He has had ongoing encephalopathic features over several admissions and many weeks - ?chronicity of baseline problem / ?ability to recover. - Thiamine was <6 on 10/21/2019. -> Aggressively replaced thiamine (Wernicke dosing) -> Now on daily through G- tube. - In discussions with PCP, more of an acute on chronic picture is worrisome - especially with significant weight loss preceding the current few months of acute illness. (4) Weight loss: Multifactorial - concern on subacute to working towards chronic malnutiriton - appearing fairly severe. - PEG placed on 10/[address] Puentes -> Tolerating tube feeds well. Stopped TPN. - Continue feeds and vitamins. (5) Acute kidney injury: Cr up to 9.7 present on admission (10/20/2019). - Now down to 0.7. (6) DVT prophylaxis: SCDs Admission and Anticipated Discharge Date Admission Date: October 20, 2019 Subjective Very dispirited about bacteremia. Will need to stay for at least a few more days. Reports no fevers/chills, chest pain, shortness of breath, abdominal pain, nausea, or vomiting. Physical Exam Constitutional: WD/WN, vitals as above Eyes: EOM intact bilaterally; no conjunctival abnormality ENMT: external ear and nose normal, oropharynx normal Neck: trachea midline, no thyromegaly normal visual inspection Respiratory: normal respiratory effort, lungs clear to auscultation no respiratory distress Cardiovascular: RRR, no murmur, no edema Gastrointestinal (Abdomen): Inspection/Auscultation: normal bowel sounds; + abdomen abnormal to inspection (G-tube present) and abdomen not distended Percussion/Palpation: + abdomen tender and abdomen soft; no guarding and abdomen not rigid Musculoskeletal: no cyanosis or clubbing, extremities motor strength 5/5 Skin: no rashes, warm and dry Neurologic: moves all extremities and awake Psychiatric: Orientation: alert, oriented to person and cooperative Results & Data Results & Data ([facility]) Vital Signs (Past 12 Hours) Vital Signs Temp Pulse Resp BP Pulse Ox 11/04/19 07:31 38.2 C H 97 H 20 100/66 94 PG Care Time/CCT Total # of Minutes Spent Total Time Spent with Patient: Total time spent is greater than 50% in coordination of care (as documented) at patient's floor/unit and/or counseling patient: Coding Level of Care Code 58494 Subseq Hosp Care Lvl 3 Diagnoses MRSA bacteremia R78.81; B95.62 Dysphagia R13.10 Altered mental status R40.1 Altered mental status type: stupor Weight loss R63.4 Acute kidney injury N17.9 DVT prophylaxis Z29.9 (1) Altered mental status Altered mental status type: stupor Qualified Code(s): R40.1 - Stupor
[2019-11-04] MEDS: VANCOMYCIN HCL 1,000 MG in SODIUM CHLORIDE 0.9% 250 ML IV SCH (17:02)
[2019-11-04] MEDS: PEPTAMEN 1.5 CAL 1,000 ML BAG GT SCH (17:11)
[2019-11-04] MEDS: ACETAMINOPHEN SOLN 650 MG/20.3 ML UDC GT PRN (17:11)
[2019-11-05 05:58] LABS: Hematocrit (blood only) 23.8 % (42-52); Hemoglobin 7.3 g/dL (14.0-18.0); Mean Corpuscular Hemoglobin 31.1 pg (25-34); Mean Corpuscular Hgb Conc 30.7 g/dL (32-36); Mean Corpuscular Volume 101.3 fL (80-100); Mean Platelet Volume 10.2 fL (7.4-10.4); Platelet Count 250 K/uL (130-400); RDW Standard Deviation 66.4 fL (36.4-46.3); Red Blood Count 2.35 M/uL (4.7-6.1); White Blood Count 5.56 K/uL (4.8-10.8)
[2019-11-05] MEDS: VANCOMYCIN HCL 1,000 MG in SODIUM CHLORIDE 0.9% 250 ML IV SCH ×2 (06:10→17:47)
[2019-11-05 06:22] LABS: BUN Creatinine Ratio 20.6 (10-20); Creatinine Clr Calc Pharmacy 120.6 ml/min; Est GFR (Non-African American) 113.9; Magnesium 1.6 mg/dl (1.8-2.4); Potassium 3.1 mmol/L (3.5-5.1)
[2019-11-05 06:48] LABS: Phosphorus 1.1 mg/dl (2.5-4.9)
[2019-11-05] MEDS: MAGNESIUM OXIDE 400 MG TAB PO SCH ×2 (07:56→20:07)
[2019-11-05] MEDS: LANSOPRAZOLE 15 MG SOLTAB GT SCH (07:56)
[2019-11-05] MEDS: CYANOCOBALAMIN 500 MCG TABLET (VITAMIN B-12) PO SCH (07:56)
[2019-11-05] MEDS: ACETAMINOPHEN SOLN 650 MG/20.3 ML UDC GT PRN (07:56)
[2019-11-05] MEDS: THIAMINE HCL 100 MG TAB PEG SCH (07:57)
[2019-11-05] MEDS ORDERED: POTASSIUM PHOS 3 MMOL/1 ML INFUSION IV STA (09:46)
[2019-11-05] MEDS ORDERED: POTASSIUM PHOSPHATE 24 MMOL in SODIUM CHLORIDE 0.9% 500 ML IV ONE (10:00)
[2019-11-05] MEDS: PEPTAMEN 1.5 CAL 1,000 ML BAG GT SCH (17:50)
--- NOTE | 2019-11-05 22:06 | Hospitalist Progress Note ---
Date of Service November 05, 2019 Assessment & Plan (1) MRSA bacteremia: Cultured on 11/02 with rapid growth of 4/4 bottles with MRSA. No clear source other than right foot IV site which looked mildly red. PEG site looks clean without erythema or pus. No other rashes or focal infection site. - Echo ordered - Continue vancomycin -> Will likely need prolonged IV antibiotics. -May consider consult with Infectious disease as unsure of source -may require JASON (2) Dysphagia: Has had nausea and vomiting since August 2019. Initially thought to be due to gastric ulcer, but it never really improved, and he was brought back to the hospital multiple times for dehydration and hypernatremia. - EGD with Dr. Puentes showed lots of secretions and a tight lower esophageal sphincter. - Thought this could be achalasia. Will need manometry study at [place]; likely as outpatient. (3) Altered mental status: Metabolic encephalopathy. He has had ongoing encephalopathic features over several admissions and many weeks - ?chronicity of baseline problem / ?ability to recover. - Thiamine was <6 on 10/21/2019. -> Aggressively replaced thiamine (Wernicke dosing) -> Now on daily through G- tube. - In discussions with PCP, more of an acute on chronic picture is worrisome - especially with significant weight loss preceding the current few months of acute illness. (4) Weight loss: Multifactorial - concern on subacute to working towards chronic malnutiriton - appearing fairly severe. - PEG placed on 10/[address] Puentes -> Tolerating tube feeds well. Stopped TPN. - Continue feeds and vitamins. (5) Acute kidney injury: Cr up to 9.7 present on admission (10/20/2019). - Now down to 0.7. (6) DVT prophylaxis: SCDs Admission and Anticipated Discharge Date Admission Date: October 20, 2019 Subjective 64 yo male reports feeling well. Has no new complaints. Still having fevers. Review of Systems Review of Systems: All systems reviewed & are unremarkable except as noted in HPI & below Physical Exam Physical Exam: Constitutional: WD/WN, vitals as above Eyes: EOM intact bilaterally; no conjunctival abnormality ENMT: external ear and nose normal, oropharynx normal Neck: trachea midline, no thyromegaly normal visual inspection Respiratory: normal respiratory effort, lungs clear to auscultation no respiratory distress Cardiovascular: RRR, no murmur, no edema Gastrointestinal (Abdomen): Inspection/Auscultation: normal bowel sounds; + abdomen abnormal to inspection (G-tube present) and abdomen not distended Percussion/Palpation: + abdomen tender and abdomen soft; no guarding and abdomen not rigid Musculoskeletal: no cyanosis or clubbing, extremities motor strength 5/5 Skin: no rashes, warm and dry Neurologic: moves all extremities and awake Psychiatric: Orientation: alert, oriented to person and cooperative Results & Data Results & Data ([facility]) Vital Signs (Past 12 Hours) Vital Signs Temp Pulse Resp BP Pulse Ox 11/05/19 14:50 37.0 C 98 H 20 94/58 L 96 PG Care Time/CCT Total # of Minutes Spent Total Time Spent with Patient: Total time spent is greater than 50% in coordination of care (as documented) at patient's floor/unit and/or counseling patient: Coding Level of Care Code 95324 Subseq Hosp Care Lvl 3 Diagnoses MRSA bacteremia R78.81; B95.62 Dysphagia R13.10 Altered mental status R40.1 Altered mental status type: stupor Weight loss R63.4 Acute kidney injury N17.9 DVT prophylaxis Z29.9 Time Spent (min) 35 (1) Altered mental status Altered mental status type: stupor Qualified Code(s): R40.1 - Stupor
[2019-11-06] MEDS ORDERED: VANCOMYCIN TROUGH ONE (05:30)
[2019-11-06] MEDS: VANCOMYCIN HCL 1,000 MG in SODIUM CHLORIDE 0.9% 250 ML IV SCH ×3 (06:26→21:34)
[2019-11-06 07:06] LABS: Creatinine Clr Calc Pharmacy 167.7 ml/min; Est GFR (African American) 146.5; Est GFR (Non-African American) 126.4
[2019-11-06] MEDS: MAGNESIUM OXIDE 400 MG TAB PO SCH ×2 (07:47→20:48)
[2019-11-06] MEDS: LANSOPRAZOLE 15 MG SOLTAB GT SCH (07:48)
[2019-11-06] MEDS: THIAMINE HCL 100 MG TAB PEG SCH (07:48)
[2019-11-06] MEDS: CYANOCOBALAMIN 500 MCG TABLET (VITAMIN B-12) PO SCH (07:48)
[2019-11-06] MEDS: MENTHOL-ZINC OXIDE 360 APPLN/120 GM TUBE EXT PRN (07:48)
[2019-11-06 08:59] LABS: Hematocrit (blood only) 23.3 % (42-52); Hemoglobin 7.3 g/dL (14.0-18.0); Mean Corpuscular Hemoglobin 31.2 pg (25-34); Mean Corpuscular Hgb Conc 31.3 g/dL (32-36); Mean Corpuscular Volume 99.6 fL (80-100); Mean Platelet Volume 10.1 fL (7.4-10.4); Platelet Count 301 K/uL (130-400); RDW Coefficient of Variation 17.9 % (11.5-14.5); Red Blood Count 2.34 M/uL (4.7-6.1); White Blood Count 5.74 K/uL (4.8-10.8)
[2019-11-06 09:16] LABS: BUN Creatinine Ratio 17.6 (10-20); Calcium 8.1 mg/dl (8.5-10.1); Creatinine Clr Calc Pharmacy 132.8 ml/min; Est GFR (African American) 133.1; Est GFR (Non-African American) 114.8; Potassium 3.1 mmol/L (3.5-5.1)
--- NOTE | 2019-11-06 11:17 | Pharmacy Report ---
Pharmacy Abx Dose Short Note - Date of Service November 06, 2019 - Assessment & Plan Assessment 64 year old M receiving vancomycin for treatment of MRA bacteremia (currently unknown source of infection) Day #3 of antimicrobial therapy. -(11/02): blood cultures 2 of 2: MRSA -(11/04): blood cultures 1 of 2: MRSA -TTE completed yesterday - no obvious abnormalities noted. May require follow-up JASON if bacteremia persists. ID consulted today. -Renal function has been stable. Tmax of 38.6 C over past 24 hours. Plan Vancomycin * Trough level of 12.2 mcg/mL is subtherapeutic * Will change dose to 1000 mg IV every 8 hours (from 12 hours) * Goal trough level for MRSA bacteremia : 15 to 20 mcg/mL * Trough level ordered for tomorrow 11/07/19 prior to 5th dose of new regimen Pharmacy will continue to follow and will adjust dose/frequency as necessary. Thank you.
[2019-11-06 13:52] LABS: Ferritin 1353.9 ng/ml (8-388); Phosphorus 2.2 mg/dl (2.5-4.9)
[2019-11-06] MEDS: POTASSIUM CHLORIDE CRTAB 20 MEQ TABCR PO SCH ×2 (14:24→20:48)
--- NOTE | 2019-11-06 17:14 | Anesthesiology Consultation ---
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 History Surgery Operation Date: 10/31/19 08:30 Proposed Procedures p Esophagogastroduodenoscopy with Gastric Tube Placement Dr Deloris Puentes Height/Weight Height: 5 ft 8 in Weight: 62 kg Allergies Allergy/AdvReac Type Severity Reaction Status Date / Time bee venom protein (honey bee) Allergy Severe ANAPHYLACTIC Verified 10/20/19 21:07 REACTION A CHILD Medications Home Medications Medication Instructions Recorded Confirmed Last Taken epinephrine [EpiPen] 0.3 mg IM DIRECTED PRN 08/14/19 10/20/19 Unknown acetaminophen 650 mg G-TUBE Q6H PRN #0 ml 11/03/19 Unknown cyanocobalamin (vitamin B-12) 500 mcg PO QAM #1 tab 11/03/19 Unknown lansoprazole [Prevacid SoluTab] 15 mg G-TUBE QAM #0 tab 11/03/19 Unknown nut.tx.impaired digest fxn 1,000 ml G-TUBE UD #0 ml 11/03/19 Unknown [Peptamen 1.5] thiamine HCl (vitamin B1) [Vitamin 100 mg PEG QAM #1 tab 11/03/19 Unknown B-1] Active Medications Generic Name Dose Route Start Last Admin Trade Name Freq PRN Reason Stop Dose Admin Acetaminophen 650 mg 11/03/19 15:48 11/05/19 07:56 Acetaminophen Soln 650 Mg/20.3 Ml Udc GT 12/03/19 15:47 650 mg Q6H PRN Administration Pain or Fever Calamine/Phenol 1 appln 10/25/19 00:32 11/06/19 07:48 Menthol-Zinc Oxide 360 Appln/120 Gm Tube EXT 11/24/19 00:31 1 appln QID PRN Administration Rash Cyanocobalamin 500 mcg 10/25/19 09:00 11/06/19 07:48 Cyanocobalamin 500 Mcg Tablet (Vitamin B-12) PO 11/24/19 08:59 500 mcg QAM GRADY Administration Enteral Nutritional Formula 1,000 ml 11/01/19 09:00 11/05/19 17:50 Peptamen 1.5 Roc 1,000 Ml Bag GT 12/01/19 08:59 1,000 ml UD GRADY Administration Protocol Vancomycin HCl 1,000 mg/ 270 mls @ 125 mls/hr 11/06/19 14:00 11/06/19 16:37 Sodium Chloride IV 11/20/19 13:59 Infused Q8H GRADY Infusion Lansoprazole 15 mg 11/04/19 09:00 11/06/19 07:48 Lansoprazole 15 Mg Soltab GT 12/04/19 08:59 15 mg QAM GRADY Administration Magnesium Oxide 400 mg 10/23/19 21:00 11/06/19 07:47 Magnesium Oxide 400 Mg Tab PO 11/22/19 20:59 400 mg BID GRADY Administration Ondansetron HCl 4 mg 10/31/19 15:47 10/31/19 16:31 Ondansetron Inj 2 Mg/Ml 2 Ml Vial IV 11/30/19 15:46 4 mg Q6H PRN Administration Nausea Potassium Chloride 20 meq 11/06/19 14:00 11/06/19 14:24 Potassium Chloride 20 Meq Tabcr PO 11/08/19 09:01 20 meq TID GRADY Administration Thiamine HCl 100 mg 11/04/19 09:00 11/06/19 07:48 Thiamine Hcl 100 Mg Tab PEG 12/04/19 08:59 100 mg QAM GRADY Administration NPO Date Last Intake of Fluids: 10/30/19 Time Last Intake of Fluids: 00:00 Last Intake of Fluids Comment: unknown time Date Last Intake of Solids: 10/30/19 Last Intake of Solids Comment: unknown time Past Medical History Medical History SHAGGY (acute kidney injury) Chronic back pain Electrolyte abnormality Clinically consistent with dehydration, NSAID use, uric acid nephropathy, and ATN. Tolerating IVF well. Creatinine continues to improve. Uremia also improving with management. Free water deficit persist (~4.5 L). Unable to tolerate medications or fluids by mouth. IVF switched to 1/4 NaCl + 20 KCl @ 200 ml/h yesterday evening. Urine appropriately alkaline. Noted UA crystals in urine yesterday AM. Serum UA level improving. Hypokalemia and hypophosphatemia noted. magnesium falling. K phos x 30 mmol IV ordered. Will continue to monitor labs twice daily and replace as needed. No adjustment to IVF infusion at this time. Hematemesis Hypertension Thrombocytopenia Vomiting Past Surgical History Surgical History H/O right hemicolectomy Social History Smoking Status: Former smoker Smoking End Date: 2018 Hx Alcohol Use: No Hx Substance Use: No Physical Exam Vital Signs Last Vital Signs Temp 98.2 F 11/06/19 15:49 Pulse 90 11/06/19 15:49 Resp 18 11/06/19 15:49 BP 96/59 L 11/06/19 15:49 Pulse Ox 95 11/06/19 15:49 Testing Laboratory Results 11/06/19 08:36 11/06/19 08:36 PT 12.1 Seconds (9.0-12.0) H 10/26/19 06:05 INR 1.2 (0.9-1.1) H 10/26/19 06:05 APTT 29.5 Seconds (21.0-31.0) 10/20/19 19:06 Hemoglobin A1c 5.4 % (4.5-5.6) 10/20/19 23:57 Urine Color Yellow 11/04/19 03:18 Urine Appearance Clear (Clear) 11/04/19 03:18 Urine pH 5.0 (4.5-7.5) 11/04/19 03:18 Ur Specific [place] 1.017 (1.000-1.030) 11/04/19 03:18 Urine Protein Negative (Negative) 11/04/19 03:18 Urine Glucose (UA) Negative (Negative) 11/04/19 03:18 Urine Ketones Negative (Negative) 11/04/19 03:18 Urine Nitrite Negative (Negative) 11/04/19 03:18 Ur Leukocyte Esterase Negative (Negative) 11/04/19 03:18 Urine RBC >30 /hpf (0-4) H 10/21/19 03:55 Urine WBC 5-10 /hpf (0-5) H 10/21/19 03:55 Ur Epithelial Cells 5-10 /lpf (0-5) H 10/21/19 03:55 11/05/19 07:31 Aerobic Blood Culture - Preliminary Blood No growth in Aerobic bottle after 24 hours. Anaerobic Blood Culture - Preliminary No growth in Anaerobic bottle after 24 hours. 11/03/19 16:23 Aerobic Blood Culture - Final Blood Staph aureus MRSA Anaerobic Blood Culture - Final Staph aureus MRSA 11/03/19 16:19 Aerobic Blood Culture - Final Blood Staph aureus MRSA Anaerobic Blood Culture - Final Staph aureus MRSA 11/05/19 05:46 Aerobic Blood Culture - Preliminary Blood Staph aureus MRSA Anaerobic Blood Culture - Preliminary No growth in Anaerobic bottle after 24 hours. 10/20/19 18:53 Aerobic Blood Culture - Final Blood No growth in Aerobic bottle after 5 days. Anaerobic Blood Culture - Final 10/20/19 19:06 Aerobic Blood Culture - Final Blood No growth in Aerobic bottle after 5 days. Anaerobic Blood Culture - Final No growth in Anaerobic bottle after 5 days. 11/06/19 11/06/19 11:44 06:20 POC Glucose 114 H 131 H Laboratory Tests 10/25/19 18:23 SARS-CoV-2 IgG & IgM Ab Negative Electrocardiogram Date: 10/20/19 Sinus tachycardia, rate 103 bpm Low voltage QRS Cannot rule out Anteroseptal infarct (cited on or before 26-JAN-2000) Abnormal ECG When compared with ECG of 09-SEP-2019 01:57, No significant change was found Confirmed by Kade Rowley ([id number]) on 10/22/2019 4:18:25 PM Chest X-Ray Date: 11/03/19 Findings: + NAD Echocardiogram Date: 11/05/19 LV wall motion is normal EF 60-65% RV is normal in size and function
[2019-11-06] MEDS ORDERED: IOVERSOL 100ml IV ONE (19:49)
--- NOTE | 2019-11-06 20:07 | CT Scan Report ---
ABDOMEN AND PELVIS CT WITH IV CONTRAST CT DOSE: 307.33 mGy.cm HISTORY: Patient presents with acute bacteremia bactermia/ new peg tube placement TECHNIQUE: Multiaxial CT images of the abdomen and pelvis were performed following the IV administrat ion of 92 cc of Optiray 320, A dose lowering technique was utilized adhering to the principles of AL BARB. COMPARISON STUDY: CT abdomen and pelvis 08/14/2019 FINDINGS: Trace pleural effusions. Emphysema. Mild linear subsegmental scarring/atelectasis of the right lung b ase. Partially imaged 5 mm nodular opacity of the right lower lobe on image 1 series 3. No pneumatosi s or pneumoperitoneum. Coronary artery calcifications. Trace pericardial effusion. Spleen, pancreas and adrenal glands are unremarkable. Cholecystectomy. 5 mm hypodensity of the left h epatic lobe is too small to characterize however is suggestive of a probable cyst. Patency of the hep atic and portal veins. Mild nonspecific bilateral perinephric stranding. There are a few probable sma ll cysts of the bilateral kidneys. Unremarkable urinary bladder. Mixed plaque of the abdominal aorta without aneurysm. No pathologically enlarged lymph nodes. There are a few prominent nonenlarged para- aortic lymph nodes measuring up to 9 mm. Fluid-filled mildly distended distal esophagus with circumferential wall thickening. Satisfactory pos itioning of the PEG tube. No bowel obstruction or bowel wall thickening. Colonic diverticulosis. Resi dual enteric contrast in the colon. Partial right hemicolectomy with enterocolic anastomosis. There a re multiple fat filled ventral abdominal wall hernias redemonstrated, several of which demonstrate mi ld stranding with diastases measuring up to 2.4 cm. Right hip total joint arthroplasty. Demineralized appearance of the bones. Moderate left hip osteoarthritis. Severe multilevel degenerative changes of the lumbar spine. Posterior disc osteophyte complex formations are seen most prominently at L4-L5 an d L5-S1. IMPRESSION: 1. No bowel obstruction or bowel wall thickening. 2. Satisfactory positioning of the PEG tube. 3. Trace pleural effusions. Partially imaged 5 mm nodule of the right lower lobe. This could be corre lated with a follow-up nonemergent CT of the chest to evaluate for additional nodules. 4. Mildly distended fluid-filled distal esophagus with associated wall thickening redemonstrated, pos sibly reflective of reflux. 5. Additional findings as above. ACT 112: Negative or not required by law. The above report was generated using voice recognition software. It may contain grammatical, syntax o r spelling errors. Electronically signed by: Aramis Vásquez M.D. 11/06/2019 8:06 PM
--- NOTE | 2019-11-06 22:11 | Hospitalist Progress Note ---
Date of Service November 06, 2019 Assessment & Plan (1) MRSA bacteremia: Cultured on 11/02 with rapid growth of 4/4 bottles with MRSA. No clear source other than right foot IV site which looked mildly red. PEG site looks clean without erythema or pus. No other rashes or focal infection site. - Echo ordered - Continue vancomycin -> Will likely need prolonged IV antibiotics. -Consulted ID. -Recommended JASON for endocarditis, at this point difficult to ascertain source. Patient did require 5 days of parenteral nutritiion, this may have been the source as well as the ultrasound peripheral line. -repeat cultures remain positive. -will obtain repeat culture today. (2) Dysphagia: Has had nausea and vomiting since August 2019. Initially thought to be due to gastric ulcer, but it never really improved, and he was brought back to the hospital multiple times for dehydration and hypernatremia. - EGD with Dr. Puentes showed lots of secretions and a tight lower esophageal sphincter. - Thought this could be achalasia. Will need manometry study at [place]; likely as outpatient. (3) Altered mental status: Metabolic encephalopathy. He has had ongoing encephalopathic features over several admissions and many weeks - ?chronicity of baseline problem / ?ability to recover. - Thiamine was <6 on 10/21/2019. -> Aggressively replaced thiamine (Wernicke dosing) -> Now on daily through G- tube. - In discussions with PCP, more of an acute on chronic picture is worrisome - especially with significant weight loss preceding the current few months of acute illness. (4) Weight loss: Multifactorial - concern on subacute to [facility] - appearing fairly severe. - PEG placed on 10/[address] Puentes -> Tolerating tube feeds well. Stopped TPN. - Continue feeds and vitamins. (5) Acute kidney injury: Cr up to 9.7 present on admission (10/20/2019). - Now down to 0.7. (6) DVT prophylaxis: SCDs Admission and Anticipated Discharge Date Admission Date: October 20, 2019 Subjective Patient reports feeling well. He has no new complaints at this time. Review of Systems Review of Systems: All systems reviewed & are unremarkable except as noted in HPI & below Physical Exam Physical Exam: Constitutional: WD/WN, vitals as above Eyes: EOM intact bilaterally; no conjunctival abnormality ENMT: external ear and nose normal, oropharynx normal Neck: trachea midline, no thyromegaly normal visual inspection Respiratory: normal respiratory effort, lungs clear to auscultation no respiratory distress Cardiovascular: RRR, no murmur, no edema Gastrointestinal (Abdomen): Inspection/Auscultation: normal bowel sounds; + abdomen abnormal to inspection (G-tube present) and abdomen not distended Percussion/Palpation: + abdomen tender and abdomen soft; no guarding and abdomen not rigid Musculoskeletal: no cyanosis or clubbing, extremities motor strength 5/5 Skin: no rashes, warm and dry Neurologic: moves all extremities and awake Psychiatric: Orientation: alert, oriented to person and cooperative Respiratory: normal respiratory effort, lungs clear to auscultation Results & Data Results & Data ([facility]) Vital Signs (Past 12 Hours) Vital Signs Temp Pulse Resp BP Pulse Ox 11/06/19 15:49 36.8 C 90 18 96/59 L 95 PG Care Time/CCT Total # of Minutes Spent Total Time Spent with Patient: Total time spent is greater than 50% in coordination of care (as documented) at patient's floor/unit and/or counseling patient: Coding Level of Care Code 45485 Subseq Hosp Care Lvl 3 Diagnoses MRSA bacteremia R78.81; B95.62 Dysphagia R13.10 Altered mental status R40.1 Altered mental status type: stupor Weight loss R63.4 Acute kidney injury N17.9 DVT prophylaxis Z29.9 Time Spent (min) 35 (1) Altered mental status Altered mental status type: stupor Qualified Code(s): R40.1 - Stupor
[2019-11-07] MEDS: VANCOMYCIN HCL 1,000 MG in SODIUM CHLORIDE 0.9% 250 ML IV SCH ×2 (05:52→14:20)
[2019-11-07] MEDS: MENTHOL-ZINC OXIDE 360 APPLN/120 GM TUBE EXT PRN (07:58)
[2019-11-07] MEDS: POTASSIUM CHLORIDE CRTAB 20 MEQ TABCR PO SCH ×3 (07:58→20:20)
[2019-11-07] MEDS: MAGNESIUM OXIDE 400 MG TAB PO SCH ×2 (07:58→20:20)
[2019-11-07] MEDS: CYANOCOBALAMIN 500 MCG TABLET (VITAMIN B-12) PO SCH (08:05)
[2019-11-07] MEDS: THIAMINE HCL 100 MG TAB PEG SCH (08:05)
[2019-11-07] MEDS: LANSOPRAZOLE 15 MG SOLTAB GT SCH (08:05)
[2019-11-07 08:35] LABS: Est GFR (African American) 149.8; Est GFR (Non-African American) 129.2
[2019-11-07] MEDS ORDERED: VANCOMYCIN TROUGH ONE (13:30)
--- NOTE | 2019-11-07 15:29 | Pharmacy Report ---
Pharmacy Abx Dose Short Note - Date of Service November 07, 2019 - Assessment & Plan Assessment 64 year old M receiving vancomycin for treatment of MRSA bacteremia (unclear source) Day # 4 of antimicrobial therapy. Blood cultures from 11/05: no growth at 24 hours x 2 Blood cultures from 11/02: MRSA x 2 Plan Vancomycin * Trough level of 22.7 mcg/mL is supratherapeutic * 1400 dose currently infusing (~received approximately half of 1000 mg dose) - called RN to stop infusion * Change to 750 mg IV every 8 hours starting tonight at 2200 * Goal trough level for MRSA bacteremia : 15 to 20 mcg/mL * Trough level ordered for: 11/08/19 @1330 prior to steady state of new dose - in interest of safety Pharmacy will continue to follow and will adjust dose/frequency as necessary. Thank you.
[2019-11-07] MEDS: ACETAMINOPHEN SOLN 650 MG/20.3 ML UDC GT PRN (18:19)
[2019-11-07] MEDS: PEPTAMEN 1.5 CAL 1,000 ML BAG GT SCH (18:24)
--- NOTE | 2019-11-07 21:59 | Hospitalist Progress Note ---
Date of Service November 07, 2019 Assessment & Plan (1) MRSA bacteremia: Cultured on 11/02 with rapid growth of 4/4 bottles with MRSA. No clear source other than right foot IV site which looked mildly red. PEG site looks clean without erythema or pus. No other rashes or focal infection site. - Echo ordered: negative. Ordered JASON: but cannot do due to elevated risk from anatomical abnormalities of his esophagus. - Continue vancomycin -> Will likely need prolonged IV antibiotics. -Consulted ID. -Patient did require 5 days of parenteral nutrition, this may have been the source as well as the ultrasound peripheral line. -repeat cultures from yesterday are negative. -will obtain repeat culture today. -Removed ultrasound guided peripheral line. Once cultures are negative, will place central line. Updated at bedside. (2) Dysphagia: Has had nausea and vomiting since August 2019. Initially thought to be due to gastric ulcer, but it never really improved, and he was brought back to the hospital multiple times for dehydration and hypernatremia. - EGD with Dr. Puentes showed lots of secretions and a tight lower esophageal sphincter. - Thought this could be achalasia. Will need manometry study at [place]; likely as outpatient. (3) Altered mental status: Metabolic encephalopathy. He has had ongoing encephalopathic features over several admissions and many weeks - ?chronicity of baseline problem / ?ability to recover. - Thiamine was <6 on 10/21/2019. -> Aggressively replaced thiamine (Wernicke dosing) -> Now on daily through G- tube. - In discussions with PCP, more of an acute on chronic picture is worrisome - especially with significant weight loss preceding the current few months of acute illness. (4) Weight loss: Multifactorial - concern on subacute to working towards chronic malnutiriton - appearing fairly severe. - PEG placed on 10/[address] Puentes -> Tolerating tube feeds well. Stopped TPN. - Continue feeds and vitamins. (5) Acute kidney injury: Cr up to 9.7 present on admission (10/20/2019). - Now down to 0.7. (6) DVT prophylaxis: SCDs Admission and Anticipated Discharge Date Admission Date: October 20, 2019 Subjective Patient reports feeling well. Review of Systems Review of Systems: All systems reviewed & are unremarkable except as noted in HPI & below Physical Exam Physical Exam: Constitutional: WD/WN, vitals as above Eyes: EOM intact bilaterally; no conjunctival abnormality ENMT: external ear and nose normal, oropharynx normal Neck: trachea midline, no thyromegaly normal visual inspection Respiratory: normal respiratory effort, lungs clear to auscultation no respiratory distress Cardiovascular: RRR, no murmur, no edema Gastrointestinal (Abdomen): Inspection/Auscultation: normal bowel sounds; + abd omen abnormal to inspection (G-tube present) and abdomen not distended Percussion/Palpation: + abdomen tender and abdomen soft; no guarding and abdomen not rigid Musculoskeletal: no cyanosis or clubbing, extremities motor strength 5/5 Skin: no rashes, warm and dry Neurologic: moves all extremities and awake Psychiatric: Orientation: alert, oriented to person and cooperative Results & Data Results & Data ([facility]) Vital Signs (Past 12 Hours) Vital Signs Temp Pulse Resp BP Pulse Ox 11/07/19 15:32 37.0 C 87 18 99/65 L 94 PG Care Time/CCT Total # of Minutes Spent Total Time Spent with Patient: Total time spent is greater than 50% in coordination of care (as documented) at patient's floor/unit and/or counseling patient: Coding Level of Care Code 24966 Subseq Hosp Care Lvl 3 Diagnoses MRSA bacteremia R78.81; B95.62 Dysphagia R13.10 Altered mental status R40.1 Altered mental status type: stupor Weight loss R63.4 Acute kidney injury N17.9 DVT prophylaxis Z29.9 Time Spent (min) 35 (1) Altered mental status Altered mental status type: stupor Qualified Code(s): R40.1 - Stupor
[2019-11-07] MEDS: VANCOMYCIN HCL 750 MG in SODIUM CHLORIDE 0.9% 250 ML IV SCH (22:01)
[2019-11-08] MEDS: VANCOMYCIN HCL 750 MG in SODIUM CHLORIDE 0.9% 250 ML IV SCH (05:52)
[2019-11-08] MEDS: POTASSIUM CHLORIDE CRTAB 20 MEQ TABCR PO SCH (07:35)
[2019-11-08] MEDS: LANSOPRAZOLE 15 MG SOLTAB GT SCH (07:35)
[2019-11-08] MEDS: CYANOCOBALAMIN 500 MCG TABLET (VITAMIN B-12) PO SCH (07:35)
[2019-11-08] MEDS: MAGNESIUM OXIDE 400 MG TAB PO SCH ×2 (07:36→19:15)
[2019-11-08] MEDS: THIAMINE HCL 100 MG TAB PEG SCH (07:36)
[2019-11-08 07:52] LABS: Creatinine Clr Calc Pharmacy 151.7 ml/min; Est GFR (African American) 140.6; Est GFR (Non-African American) 121.3
[2019-11-08] MEDS ORDERED: VANCOMYCIN TROUGH ONE (13:30)
--- NOTE | 2019-11-08 14:53 | Pharmacy Report ---
Pharmacy Abx Dose Short Note - Date of Service November 08, 2019 - Assessment & Plan Assessment 64 year old M receiving vancomycin for treatment of MRSA bacteremia (unclear source) Day # 5 of antimicrobial therapy. Blood cultures (11/06): pending Blood cultures (11/05): no growth at 24 hours x 2 Blood cultures (11/02): MRSA x 2 Plan Vancomycin * Trough level of 21.3 mcg/mL is supratherapeutic, but this was not a true trough (prior to third dose of new regimen, this was ordered in interest of safety). Trough trending down with decreased dose and would probably be therapeutic once at steady-state. * Plan is for discharge to [facility] - will change frequency to q12h dosing for more convenient dosing schedule * Change to 1250 mg IV every 12 hours * Goal trough level for MRSA bacteremia : 15 to 20 mcg/mL * Will order vanco trough once new regimen is at steady-state and if patient is still inpatient * Will continue to follow renal function Pharmacy will continue to follow and will adjust dose/frequency as necessary. Thank you.
[2019-11-08 15:04] LABS: Hemoglobin 7.1 g/dL (14.0-18.0); Mean Corpuscular Hemoglobin 30.9 pg (25-34); Mean Corpuscular Hgb Conc 30.9 g/dL (32-36); Mean Platelet Volume 9.3 fL (7.4-10.4); Platelet Count 479 K/uL (130-400); RDW Coefficient of Variation 18.1 % (11.5-14.5); White Blood Count 7.22 K/uL (4.8-10.8)
[2019-11-08 15:36] LABS: BUN Creatinine Ratio 20.1 (10-20); Calcium 8.5 mg/dl (8.5-10.1); Creatinine Clr Calc Pharmacy 159.3 ml/min; Est GFR (African American) 143.5; Est GFR (Non-African American) 123.8; Magnesium 1.7 mg/dl (1.8-2.4); Phosphorus 1.1 mg/dl (2.5-4.9); Potassium 3.7 mmol/L (3.5-5.1)
[2019-11-08] MEDS ORDERED: POTASSIUM PHOS 3 MMOL/1 ML INFUSION IV STA (16:43)
[2019-11-08] MEDS: VANCOMYCIN HCL 1,250 MG in SODIUM CHLORIDE 0.9% 250 ML IV SCH (17:19)
[2019-11-08] MEDS: PEPTAMEN 1.5 CAL 1,000 ML BAG GT SCH (17:23)
[2019-11-08] MEDS: ACETAMINOPHEN SOLN 650 MG/20.3 ML UDC GT PRN (17:24)
[2019-11-08] MEDS ORDERED: POTASSIUM PHOSPHATE 30 MMOL in SODIUM CHLORIDE 0.9% 500 ML IV ONE (17:30)
[2019-11-08] MEDS: FOLIC ACID 1 MG TAB PO SCH (19:13)
--- NOTE | 2019-11-08 22:51 | Hospitalist Progress Note ---
Date of Service November 08, 2019 Assessment & Plan (1) MRSA bacteremia: Cultured on 11/02 with rapid growth of 4/4 bottles with MRSA. No clear source other than right foot IV site which looked mildly red. PEG site looks clean without erythema or pus. No other rashes or focal infection site. - Echo ordered: negative. Ordered JASON: but cannot do due to elevated risk from anatomical abnormalities of his esophagus. - Continue vancomycin -> Will likely need prolonged IV antibiotics. -Consulted ID. -Patient did require 5 days of parenteral nutrition, this may have been the source as well as the ultrasound peripheral line. -repeat cultures from yesterday are negative. -will obtain repeat culture today. -Removed ultrasound guided peripheral line. Once cultures are negative, will place central line. Updated at bedside. (2) Dysphagia: Has had nausea and vomiting since August 2019. Initially thought to be due to gastric ulcer, but it never really improved, and he was brought back to the hospital multiple times for dehydration and hypernatremia. - EGD with Dr. Puentes showed lots of secretions and a tight lower esophageal sphincter. - Thought this could be achalasia. Will need manometry study at [place]; likely as outpatient. (3) Altered mental status: Metabolic encephalopathy. He has had ongoing encephalopathic features over several admissions and many weeks - ?chronicity of baseline problem / ?ability to recover. - Thiamine was <6 on 10/21/2019. -> Aggressively replaced thiamine (Wernicke dosing) -> Now on daily through G- tube. - In discussions with PCP, more of an acute on chronic picture is worrisome - especially with significant weight loss preceding the current few months of acute illness. (4) Weight loss: Multifactorial - concern on subacute to working towards chronic malnutiriton - appearing fairly severe. - PEG placed on 10/[address] Puentes -> Tolerating tube feeds well. Stopped TPN. - Continue feeds and vitamins. (5) Acute kidney injury: Cr up to 9.7 present on admission (10/20/2019). - Now down to 0.7. (6) DVT prophylaxis: SCDs (7) Anemia: Patient has anemia. Do not feel this is a GI bleed as patient is not having dark stools or blood in stools. Also MCV is elevated, will closely monitor. May require transfusion as he is near 7.0 (8) Refeeding syndrome: Patient's phos has been getting low and required replacement. will continue to replace his electrolytes. This will likely prolong his hospital stay. Admission and Anticipated Discharge Date Admission Date: October 20, 2019 Subjective Patient reports feeling well. He has no new complaints. Review of Systems Review of Systems: All systems reviewed & are unremarkable except as noted in HPI & below Physical Exam Physical Exam: Constitutional: WD/WN, vitals as above Eyes: EOM intact bilaterally; no conjunctival abnormality ENMT: external ear and nose normal, oropharynx normal Neck: trachea midline, no thyromegaly normal visual inspection Respiratory: normal respiratory effort, lungs clear to auscultation no respiratory distress Cardiovascular: RRR, no murmur, no edema Gastrointestinal (Abdomen): Inspection/Auscultation: normal bowel sounds; + abdomen abnormal to inspection (G-tube present) and abdomen not distended Percussion/Palpation: + abdomen tender and abdomen soft; no guarding and abdomen not rigid Musculoskeletal: no cyanosis or clubbing, extremities motor strength 5/5 Skin: no rashes, warm and dry Neurologic: moves all extremities and awake Psychiatric: Orientation: alert, oriented to person and cooperative PG Care Time/CCT Total # of Minutes Spent Total Time Spent with Patient: Total time spent is greater than 50% in coordination of care (as documented) at patient's floor/unit and/or counseling patient: Coding Level of Care Code 11348 Subseq Hosp Care Lvl 3 Diagnoses MRSA bacteremia R78.81; B95.62 Dysphagia R13.10 Altered mental status R40.1 Altered mental status type: stupor Weight loss R63.4 Acute kidney injury N17.9 DVT prophylaxis Z29.9 Anemia D64.9 Refeeding syndrome E87.8 Time Spent (min) 35 (1) Altered mental status Altered mental status type: stupor Qualified Code(s): R40.1 - Stupor
[2019-11-09] MEDS: VANCOMYCIN HCL 1,250 MG in SODIUM CHLORIDE 0.9% 250 ML IV SCH ×2 (05:52→17:16)
[2019-11-09 06:13] LABS: Hematocrit (blood only) 23.2 % (42-52); Hemoglobin 7.2 g/dL (14.0-18.0); Mean Corpuscular Hemoglobin 31.2 pg (25-34); Mean Corpuscular Volume 100.4 fL (80-100); Mean Platelet Volume 9.1 fL (7.4-10.4); Platelet Count 539 K/uL (130-400); RDW Coefficient of Variation 18.2 % (11.5-14.5); RDW Standard Deviation 65.7 fL (36.4-46.3); Red Blood Count 2.31 M/uL (4.7-6.1)
[2019-11-09 06:43] LABS: Creatinine Clr Calc Pharmacy 150.7 ml/min; Est GFR (African American) 140.6; Est GFR (Non-African American) 121.3
[2019-11-09] MEDS: THIAMINE HCL 100 MG TAB PEG SCH (07:29)
[2019-11-09] MEDS: LANSOPRAZOLE 15 MG SOLTAB GT SCH (07:29)
[2019-11-09] MEDS: MAGNESIUM OXIDE 400 MG TAB PO SCH ×2 (07:29→19:46)
[2019-11-09] MEDS: FOLIC ACID 1 MG TAB PO SCH (07:29)
[2019-11-09] MEDS: CYANOCOBALAMIN 500 MCG TABLET (VITAMIN B-12) PO SCH (07:29)
[2019-11-09 10:15] LABS: BUN Creatinine Ratio 21.4 (10-20); Blood Urea Nitrogen 7 mg/dl (7-18); Calcium 8.3 mg/dl (8.5-10.1); Carbon Dioxide 23 mmol/L (21-32); Chloride 110 mmol/L (98-107); Creatinine Clr Calc Pharmacy 197.8 ml/min; Est GFR (African American) > 150.0; Est GFR (Non-African American) 135.7; Glucose 90 mg/dl (70-99); Magnesium 1.6 mg/dl (1.8-2.4); Potassium 3.7 mmol/L (3.5-5.1); Sodium 142 mmol/L (136-145)
[2019-11-09 10:20] LABS: Phosphorus 3.9 mg/dl (2.5-4.9)
[2019-11-09] MEDS: MAGNESIUM SULFATE / D5W 1 GM/100 ML BAG IV SCH ×2 (13:22→15:05)
[2019-11-09] MEDS: POT PHOSPHATE MONOBASIC W/ SOD TAB PEG SCH ×3 (15:06→19:45)
[2019-11-09] MEDS: PEPTAMEN 1.5 CAL 1,000 ML BAG GT SCH (17:18)
[2019-11-09] MEDS: ACETAMINOPHEN SOLN 650 MG/20.3 ML UDC GT PRN (18:47)
--- NOTE | 2019-11-09 23:07 | Hospitalist Progress Note ---
Date of Service November 09, 2019 Assessment & Plan (1) MRSA bacteremia: Cultured on 11/02 with rapid growth of 4/4 bottles with MRSA. No clear source other than right foot IV site which looked mildly red. PEG site looks clean without erythema or pus. No other rashes or focal infection site. - Echo ordered: negative. Ordered JASON: but cannot do due to elevated risk from anatomical abnormalities of his esophagus. - Continue vancomycin -> Will likely need prolonged IV antibiotics. -Consulted ID. -Patient did require 5 days of parenteral nutrition, this may have been the source as well as the ultrasound peripheral line. -repeat cultures from 11/05 are preliminary negative -Removed ultrasound guided peripheral line. Once cultures are negative, will place central line. Consent obtained. Updated at bedside. (2) Refeeding syndrome: Patient's phos has been getting low and required replacement. Phos is better today, will continue to replace his electrolytes. This will likely prolong his hospital stay. Rate of feedings are also decreased. (3) Anemia: Patient has anemia. Do not feel this is a GI bleed as patient is not having dark stools or blood in stools. Also MCV is elevated, will closely monitor. Likely nutritional May require transfusion as he is near 7.0; currently patient wants to continue to monitor hemoglobin and would like to withhold transfusion. Blood consent is obtained if hemoglobin drops, if transfusion is ordered, patient will like to be informed (4) Dysphagia: Has had nausea and vomiting since August 2019. Initially thought to be due to gastric ulcer, but it never really improved, and he was brought back to the hospital multiple times for dehydration and hypernatremia. - EGD with Dr. Puentes showed lots of secretions and a tight lower esophageal sphincter. - Thought this could be achalasia. Will need manometry study at [place]; likely as outpatient. (5) Altered mental status: Metabolic encephalopathy. He has had ongoing encephalopathic features over several admissions and many weeks - ?chronicity of baseline problem / ?ability to recover. - Thiamine was <6 on 10/21/2019. -> Aggressively replaced thiamine (Wernicke dosing) -> Now on daily through G- tube. - In discussions with PCP, more of an acute on chronic picture is worrisome - especially with significant weight loss preceding the current few months of acute illness. (6) Weight loss: Multifactorial - concern on subacute to working towards chronic [facility] - appearing fairly severe. - PEG placed on 10/[address] Puentes -> Tolerating tube feeds well. Stopped TPN. - Continue feeds and vitamins. (7) Acute kidney injury: Cr up to 9.7 present on admission (10/20/2019). - Now resolved (8) DVT prophylaxis: SCDs Admission and Anticipated Discharge Date Admission Date: October 20, 2019 Subjective 64 yo male reports feeling better, more energetic. Review of Systems Review of Systems: All systems reviewed & are unremarkable except as noted in HPI & below Physical Exam Physical Exam: Constitutional: WD/WN, vitals as above Eyes: EOM intact bilaterally; no conjunctival abnormality ENMT: external ear and nose normal, oropharynx normal Neck: trachea midline, no thyromegaly normal visual inspection Respiratory: normal respiratory effort, lungs clear to auscultation no respiratory distress Cardiovascular: RRR, no murmur, no edema Gastrointestinal (Abdomen): Inspection/Auscultation: normal bowel sounds; + abdomen abnormal to inspection (G-tube present) and abdomen not distended Percussion/Palpation: + abdomen tender and abdomen soft; no guarding and abdomen not rigid Musculoskeletal: no cyanosis or clubbing, extremities motor strength 5/5 Skin: no rashes, warm and dry Neurologic: moves all extremities and awake Psychiatric: Orientation: alert, oriented to person and cooperative Results & Data Results & Data ([facility]) Vital Signs (Past 12 Hours) Vital Signs Temp Pulse Resp BP BP Pulse Ox 11/09/19 22:56 36.4 C L 79 18 95/60 L 96 11/09/19 14:52 36.8 C 80 18 94/58 L 95 PG Care Time/CCT Total # of Minutes Spent Total Time Spent with Patient: Total time spent is greater than 50% in coordination of care (as documented) at patient's floor/unit and/or counseling patient: Coding Level of Care Code 11347 Subseq Hosp Care Lvl 3 Diagnoses MRSA bacteremia R78.81; B95.62 Refeeding syndrome E87.8 Anemia D64.9 Dysphagia R13.10 Altered mental status R40.1 Altered mental status type: stupor Weight loss R63.4 Acute kidney injury N17.9 DVT prophylaxis Z29.9 Time Spent (min) 35 (1) Altered mental status Altered mental status type: stupor Qualified Code(s): R40.1 - Stupor
[2019-11-10] MEDS: VANCOMYCIN HCL 1,250 MG in SODIUM CHLORIDE 0.9% 250 ML IV SCH ×2 (05:43→18:34)
[2019-11-10] MEDS: POT PHOSPHATE MONOBASIC W/ SOD TAB PEG SCH ×4 (07:51→20:26)
[2019-11-10] MEDS: CYANOCOBALAMIN 500 MCG TABLET (VITAMIN B-12) PO SCH (07:51)
[2019-11-10] MEDS: MAGNESIUM OXIDE 400 MG TAB PO SCH ×2 (07:51→20:26)
[2019-11-10] MEDS: LANSOPRAZOLE 15 MG SOLTAB GT SCH (07:51)
[2019-11-10] MEDS: FOLIC ACID 1 MG TAB PO SCH (07:51)
[2019-11-10] MEDS: THIAMINE HCL 100 MG TAB PEG SCH (07:51)
[2019-11-10 08:15] LABS: Hematocrit (blood only) 22.3 % (42-52); Mean Corpuscular Hemoglobin 31.4 pg (25-34); Mean Corpuscular Hgb Conc 31.4 g/dL (32-36); Mean Platelet Volume 9.3 fL (7.4-10.4); Platelet Count 608 K/uL (130-400); RDW Coefficient of Variation 18.3 % (11.5-14.5); RDW Standard Deviation 66.6 fL (36.4-46.3); Red Blood Count 2.23 M/uL (4.7-6.1)
[2019-11-10 08:48] LABS: BUN Creatinine Ratio 15.5 (10-20); Calcium 8.7 mg/dl (8.5-10.1); Creatinine Clr Calc Pharmacy 152.9 ml/min; Est GFR (Non-African American) 122.5; Magnesium 2.1 mg/dl (1.8-2.4); Potassium 3.3 mmol/L (3.5-5.1)
[2019-11-10 08:49] LABS: Creatinine Clr Calc Pharmacy 156.7 ml/min; Est GFR (African American) 143.5; Est GFR (Non-African American) 123.8
[2019-11-10 08:50] LABS: Phosphorus 4.8 mg/dl (2.5-4.9)
--- NOTE | 2019-11-10 10:50 | Hospitalist Progress Note ---
Date of Service November 10, 2019 Assessment & Plan (1) MRSA bacteremia: Cultured on 11/02 with rapid growth of 4/4 bottles with MRSA. No clear source other than right foot IV site which looked mildly red. PEG site looks clean without erythema or pus. No other rashes or focal infection site. - Re-culture today. - Echo on 11/04 showed no vegetations. Could not pursue JASON due to esophageal issues. - Continue vancomycin -> Will need prolonged IV antibiotics; 6 weeks from 11/06/2019. (End date: 12/17/2019). (2) Dysphagia: Has had nausea and vomiting since August 2019. Initially thought to be due to gastric ulcer, but it never really improved, and he was brought back to the hospital multiple times for dehydration and hypernatremia. - EGD with Dr. Puentes showed lots of secretions and a tight lower esophageal sphincter. - Thought this could be achalasia. Will need manometry study at [place]; likely as outpatient. (3) Altered mental status: Metabolic encephalopathy. He has had ongoing encephalopathic features over several admissions and many weeks - ?chronicity of baseline problem / ?ability to recover. - Thiamine was <6 on 10/21/2019. -> Aggressively replaced thiamine (Wernicke dosing) -> Now on daily through G- tube. - In discussions with PCP, more of an acute on chronic picture is worrisome - especially with significant weight loss preceding the current few months of acute illness. (4) Weight loss: Multifactorial - concern on subacute to working towards chronic malnutiriton - appearing fairly severe. - PEG placed on 10/[address] Puentes -> Tolerating tube feeds well. Stopped TPN. - Continue feeds and vitamins. -> Now with some concern for refeeding syndrome with low phosphate. Will disc uss with nutrition. (5) Acute kidney injury: Cr up to 9.7 present on admission (10/20/2019). - Now down to 0.4. (6) DVT prophylaxis: SCDs Admission and Anticipated Discharge Date Admission Date: October 20, 2019 Subjective Reports some right knee pain today, otherwise doing well. Reports no fevers/chills, chest pain, shortness of breath, abdominal pain, nausea, or vomiting. Physical Exam Constitutional: WD/WN, vitals as above Eyes: EOM intact bilaterally; no conjunctival abnormality ENMT: external ear and nose normal, oropharynx normal Neck: trachea midline, no thyromegaly normal visual inspection Respiratory: normal respiratory effort, lungs clear to auscultation no respiratory distress Cardiovascular: RRR, no murmur, no edema Gastrointestinal (Abdomen): Inspection/Auscultation: normal bowel sounds; + abdomen abnormal to inspection (G-tube present) and abdomen not distended Percussion/Palpation: + abdomen tender and abdomen soft; no guarding and abdomen not rigid Musculoskeletal: no cyanosis or clubbing, extremities motor strength 5/5 Skin: no rashes, warm and dry Neurologic: moves all extremities and awake Psychiatric: Orientation: alert, oriented to person and cooperative Results & Data Results & Data ([facility]) Vital Signs (Past 12 Hours) Vital Signs Temp Pulse Resp BP BP Pulse Ox 11/10/19 08:06 36.7 C 85 17 96/60 L 98 11/09/19 22:56 36.4 C L 79 18 95/60 L 96 PG Care Time/CCT Total # of Minutes Spent Total Time Spent with Patient: Total time spent is greater than 50% in coordination of care (as documented) at patient's floor/unit and/or counseling patient: Coding Level of Care Code 57918 Subseq Hosp Care Lvl 2 Diagnoses MRSA bacteremia R78.81; B95.62 Dysphagia R13.10 Altered mental status R40.1 Altered mental status type: stupor Weight loss R63.4 Acute kidney injury N17.9 DVT prophylaxis Z29.9 (1) Altered mental status Altered mental status type: stupor Qualified Code(s): R40.1 - Stupor
[2019-11-10] MEDS ORDERED: POTASSIUM CHLORIDE 20 MEQ/15 ML UDC PEG ONE (11:15)
[2019-11-10] MEDS: ACETAMINOPHEN SOLN 650 MG/20.3 ML UDC GT PRN (12:18)
[2019-11-10] MEDS ORDERED: VANCOMYCIN TROUGH ONE (17:30)
--- NOTE | 2019-11-10 19:04 | Pharmacy Report ---
Pharmacy Abx Dose Short Note - Date of Service November 10, 2019 - Assessment & Plan Assessment 64 year old M receiving vancomycin for treatment of MRSA bacteremia (unclear source) * Day #7 of antimicrobial therapy * First day of negative cultures was 11/05 * Patient was to be discharge to [facility] but now that is on hold * Renal fxn stable * Trough level was supratherapeutic but 1800 dose had already been administered. Will decrease dose and start it 6 hours later than normal to allow for proper clearance. Plan Vancomycin * Trough level of 24.7 mcg/mL is supratherapeutic * Decrease dose to 1000 mg IV every 12 hours - * Goal trough: 15 - 20 mcg/mL * Trough level ordered for 11/12/2019 prior to steady state to ensure patient is not supratherapeutic. Pharmacy will continue to follow and will adjust dose/frequency as necessary. Thank you.
[2019-11-11 07:45] LABS: Hematocrit (blood only) 22.4 % (42-52); Hemoglobin 6.8 g/dL (14.0-18.0); Mean Corpuscular Hemoglobin 30.6 pg (25-34); Mean Corpuscular Hgb Conc 30.4 g/dL (32-36); Mean Corpuscular Volume 100.9 fL (80-100); Platelet Count 706 K/uL (130-400); RDW Coefficient of Variation 18.2 % (11.5-14.5); RDW Standard Deviation 66.6 fL (36.4-46.3); Red Blood Count 2.22 M/uL (4.7-6.1); White Blood Count 8.37 K/uL (4.8-10.8)
[2019-11-11 08:09] LABS: BUN Creatinine Ratio 12.3 (10-20); Calcium 7.8 mg/dl (8.5-10.1); Creatinine Clr Calc Pharmacy 134.1 ml/min; Est GFR (African American) 135.4; Est GFR (Non-African American) 116.9; Magnesium 1.9 mg/dl (1.8-2.4); Potassium 3.4 mmol/L (3.5-5.1)
[2019-11-11] MEDS: THIAMINE HCL 100 MG TAB PEG SCH (08:47)
[2019-11-11] MEDS: POT PHOSPHATE MONOBASIC W/ SOD TAB PEG SCH (08:48)
[2019-11-11] MEDS: MAGNESIUM OXIDE 400 MG TAB PO SCH ×2 (08:48→21:37)
[2019-11-11] MEDS: FOLIC ACID 1 MG TAB PO SCH (08:48)
[2019-11-11] MEDS: LANSOPRAZOLE 15 MG SOLTAB GT SCH (08:48)
[2019-11-11] MEDS: CYANOCOBALAMIN 500 MCG TABLET (VITAMIN B-12) PO SCH (08:48)
[2019-11-11] MEDS ORDERED: POTASSIUM CHLORIDE 20 MEQ/15 ML UDC PO ONE (10:00)
[2019-11-11] MEDS ORDERED: SODIUM CHLORIDE 0.9% 250 ML IV PRN (10:44)
[2019-11-11] MEDS: VANCOMYCIN HCL 1,000 MG in SODIUM CHLORIDE 0.9% 250 ML IV SCH (12:28)
--- NOTE | 2019-11-11 15:25 | Hospitalist Progress Note ---
Date of Service November 11, 2019 Assessment & Plan (1) MRSA bacteremia: Cultured on 11/02 with rapid growth of 4/4 bottles with MRSA. No clear source other than right foot IV site which looked mildly red. PEG site looks clean without erythema or pus. No other rashes or focal infection site. - Re-culture today. - Echo on 11/04 showed no vegetations. Could not pursue JASON due to esophageal issues. - Continue vancomycin -> Will need prolonged IV antibiotics; 4 weeks from 11/06/2019. (End date: 12/03/2019). (2) Anemia: Hgb was baseline ~9.0 - 10.0. Has trickled down to 7s and down to 6.8 on 11/10. No indication of bleeding. - Anemia labs indicate anemia of chronic disease worsened by phlebotomy while in the hospital. Ferritin was 1300 this admission. B12 was normal, and he is on repletion also. - Ordered 1 unit PRBCs on 11/10 with patient consent. (3) Thrombocytosis: Normal platelets until 11/07 as hemoglobin dropped lower. I think this is likely reactive from his anemia, but will continue to trend. - Start ASA 81 mg for stroke prevention. (4) Weight loss: Multifactorial - concern on subacute to working towards chronic ma lnutiriton - appearing fairly severe. - PEG placed on 10/[address] Puentes -> Tolerating tube feeds well. Stopped TPN. - Continue feeds and vitamins. -> Now with some concern for refeeding syndrome with low phosphate. Discussed with nutrition. Will continue increasing tube feeds. (5) Dysphagia: Has had nausea and vomiting since August 2019. Initially thought to be due to gastric ulcer, but it never really improved, and he was brought back to the hospital multiple times for dehydration and hypernatremia. - EGD with Dr. Puentes showed lots of secretions and a tight lower esophageal sphincter. - Thought this could be achalasia. Will need manometry study at [place]; likely as outpatient. (6) Altered mental status: Metabolic encephalopathy. He has had ongoing encephalopathic features over several admissions and many weeks - ?chronicity of baseline problem / ?ability to recover. - Thiamine was <6 on 10/21/2019. -> Aggressively replaced thiamine (Wernicke dosing) -> Now on daily through G- tube. - In discussions with PCP, more of an acute on chronic picture is worrisome - especially with significant weight loss preceding the current few months of acute illness. (7) Acute kidney injury: Cr up to 9.7 present on admission (10/20/2019). - Now down to 0.4. (8) DVT prophylaxis: Lovenox 30 mg SQ daily Admission and Anticipated Discharge Date Admission Date: October 20, 2019 Subjective Doing well today. No major concerns. Reports no fevers/chills, chest pain, shortness of breath, abdominal pain, nausea, or vomiting. Physical Exam Constitutional: WD/WN, vitals as above Eyes: EOM intact bilaterally; no conjunctival abnormality ENMT: external ear and nose normal, oropharynx normal Neck: trachea midline, no thyromegaly normal visual inspection Respiratory: normal respiratory effort, lungs clear to auscultation no respiratory distress Cardiovascular: RRR, no murmur, no edema Gastrointestinal (Abdomen): Inspection/Auscultation: normal bowel sounds; + abdomen abnormal to inspection (G-tube present) and abdomen not distended Percussion/Palpation: + abdomen tender and abdomen soft; no guarding and abdomen not rigid Musculoskeletal: no cyanosis or clubbing, extremities motor strength 5/5 Skin: no rashes, warm and dry Neurologic: moves all extremities and awake Psychiatric: Orientation: alert, oriented to person and cooperative Results & Data Results & Data ([facility]) Vital Signs (Past 12 Hours) Vital Signs Temp Pulse Resp BP Pulse Ox 11/11/19 07:34 36.8 C 84 17 102/61 96 PG Care Time/CCT Total # of Minutes Spent Total Time Spent with Patient: Total time spent is greater than 50% in coordination of care (as documented) at patient's floor/unit and/or counseling patient: Coding Level of Care Code 94592 Subseq Hosp Care Lvl 3 Diagnoses MRSA bacteremia R78.81; B95.62 Anemia D64.9 Thrombocytosis D47.3 Weight loss R63.4 Dysphagia R13.10 Altered mental status R40.1 Altered mental status type: stupor Acute kidney injury N17.9 DVT prophylaxis Z29.9 (1) Altered mental status Altered mental status type: stupor Qualified Code(s): R40.1 - Stupor
[2019-11-11] MEDS: PEPTAMEN 1.5 CAL 1,000 ML BAG GT SCH (21:45)
[2019-11-12] MEDS: VANCOMYCIN HCL 1,000 MG in SODIUM CHLORIDE 0.9% 250 ML IV SCH (00:04)
[2019-11-12 06:26] LABS: Hematocrit (blood only) 25.3 % (42-52); Hemoglobin 8.1 g/dL (14.0-18.0); Mean Corpuscular Volume 96.9 fL (80-100); Mean Platelet Volume 8.9 fL (7.4-10.4); Platelet Count 642 K/uL (130-400); RDW Standard Deviation 66.7 fL (36.4-46.3); Red Blood Count 2.61 M/uL (4.7-6.1); White Blood Count 9.14 K/uL (4.8-10.8)
[2019-11-12 06:47] LABS: Albumin Level 1.8 gm/dl (3.4-5.0); BUN Creatinine Ratio 11.6 (10-20); Calcium 8.4 mg/dl (8.5-10.1); Creatinine Clr Calc Pharmacy 119.6 ml/min; Est GFR (African American) 128.8; Est GFR (Non-African American) 111.1; Magnesium 1.6 mg/dl (1.8-2.4); Potassium 3.5 mmol/L (3.5-5.1)
[2019-11-12 06:51] LABS: Albumin Globulin Ratio 0.5 (0.9-2); Bilirubin,Total 0.3 mg/dl (0.2-1); Globulin 3.8 gm/dl (2.5-4.0); Phosphorus 3.1 mg/dl (2.5-4.9); Total Protein 5.6 gm/dl (6.4-8.2)
[2019-11-12] MEDS: ACETAMINOPHEN SOLN 650 MG/20.3 ML UDC GT PRN ×2 (08:22→19:07)
[2019-11-12] MEDS: ASPIRIN 81 MG CHEW GT SCH (08:23)
[2019-11-12] MEDS: MAGNESIUM SULFATE / D5W 1 GM/100 ML BAG IV SCH ×2 (08:23→10:20)
[2019-11-12] MEDS: MAGNESIUM OXIDE 400 MG TAB PO SCH ×2 (08:23→21:30)
[2019-11-12] MEDS: ENOXAPARIN INJ 30 MG/0.3 ML SYR SQ SCH (08:23)
[2019-11-12] MEDS: LANSOPRAZOLE 15 MG SOLTAB GT SCH (08:24)
[2019-11-12] MEDS: THIAMINE HCL 100 MG TAB PEG SCH (08:24)
[2019-11-12] MEDS: FOLIC ACID 1 MG TAB PO SCH (08:24)
[2019-11-12] MEDS: CYANOCOBALAMIN 500 MCG TABLET (VITAMIN B-12) PO SCH (08:24)
[2019-11-12] MEDS ORDERED: VANCOMYCIN TROUGH ONE (11:30)
--- NOTE | 2019-11-12 12:36 | Pharmacy Report ---
Pharmacy Abx Dose Short Note - Date of Service November 12, 2019 - Assessment & Plan Assessment 64 year old M receiving vancomycin for treatment of MRSA bacteremia Day #9 of antimicrobial therapy. Plan Vancomycin * Trough level of 23.2 mcg/mL is supratherapeutic * Change to 750 mg IV every 12 hours starting at 1600 * Goal trough level for MRSA bacteremia : 15 to 20 mcg/mL * Trough level ordered for: 11/13/19 @1530 prior to steady state of new dose - in interest of safety Pharmacy will continue to follow and will adjust dose/frequency as necessary. Thank you.
--- NOTE | 2019-11-12 14:15 | Hospitalist Progress Note ---
Date of Service November 12, 2019 Assessment & Plan (1) MRSA bacteremia: Cultured on 11/02 with rapid growth of 4/4 bottles with MRSA. No clear source other than right foot IV site which looked mildly red. PEG site looks clean without erythema or pus. No other rashes or focal infection site. - Blood cultures from 11/05 and 11/06 without any growth. - Echo on 11/04 showed no vegetations. Could not pursue JASON due to esophageal issues. - Continue vancomycin -> Will need prolonged IV antibiotics; 4 weeks from 11/06/2019 as I think this qualifies for an uncomplicated bacteremia. (End date: 12/03/2019). (2) Anemia: Hgb was baseline ~9.0 - 10.0. Has trickled down to 7s and down to 6.8 on 11/10. No indication of bleeding. - Anemia labs indicate anemia of chronic disease worsened by phlebotomy while in the hospital. Ferritin was 1300 this admission. B12 was normal, and he is on repletion also. - Ordered 1 unit PRBCs on 11/10 with patient consent. - On 11/11, hemoglobin bounced appropriately to 8.1. (3) Thrombocytosis: Normal platelets until 11/07 as hemoglobin dropped lower. I think this is likely reactive from his anemia, but will continue to trend. - Started ASA 81 mg on 11/10 for stroke prevention. - Platelets down slightly on 11/11 after RBC transfusion, pointing toward a reactive thrombocytosis from anemia. (4) Weight loss: Multifactorial - concern on subacute to working towards chronic malnutiriton - appearing fairly severe. - PEG placed on 10/[address] Puentes -> Tolerating tube feeds well. Stopped TPN. - Continue feeds and vitamins. -> Now with some concern for refeeding syndrome with low phosphate. Discussed with nutrition. Will continue increasing tube feeds. Restart potassium phosphate supplement. (5) Dysphagia: Has had nausea and vomiting since August 2019. Initially thought to be due to gastric ulcer, but it never really improved, and he was brought back to the hospital multiple times for dehydration and hypernatremia. - EGD with Dr. Puentes showed lots of secretions and a tight lower esophageal sphincter. - Thought this could be achalasia. Will need manometry study at [place]; likely as outpatient. (6) Altered mental status: Metabolic encephalopathy. He has had ongoing encephalopathic features over several admissions and many weeks - ?chronicity of baseline problem / ?ability to recover. - Thiamine was <6 on 10/21/2019. -> Aggressively replaced thiamine (Wernicke dosing) -> Now on daily through G- tube. - In discussions with PCP, more of an acute on chronic picture is worrisome - especially with significant weight loss preceding the current few months of acute illness. (7) Acute kidney injury: Cr up to 9.7 present on admission (10/20/2019). - Now down to 0.5. (8) DVT prophylaxis: Lovenox 30 mg SQ daily Admission and Anticipated Discharge Date Admission Date: October 20, 2019 Subjective Stable today. No major complaints. Reports no fevers/chills, chest pain, shortness of breath, abdominal pain, nausea, or vomiting. Physical Exam Constitutional: WD/WN, vitals as above Eyes: EOM intact bilaterally; no conjunctival abnormality ENMT: external ear and nose normal, oropharynx normal Neck: trachea midline, no thyromegaly normal visual inspection Respiratory: normal respiratory effort, lungs clear to auscultation no respiratory distress Cardiovascular: RRR, no murmur, no edema Gastrointestinal (Abdomen): Inspection/Auscultation: normal bowel sounds; + abdomen abnormal to inspection (G-tube present) and abdomen not distended Percussion/Palpation: + abdomen tender and abdomen soft; no guarding and abdomen not rigid Musculoskeletal: no cyanosis or clubbing, extremities motor strength 5/5 Skin: no rashes, warm and dry Neurologic: moves all extremities and awake Psychiatric: Orientation: alert, oriented to person and cooperative Results & Data Results & Data ([facility]) Vital Signs (Past 12 Hours) Vital Signs Temp Pulse Resp BP Pulse Ox 11/12/19 08:19 36.9 C 80 17 108/61 96 PG Care Time/CCT Total # of Minutes Spent Total Time Spent with Patient: Total time spent is greater than 50% in coordination of care (as documented) at patient's floor/unit and/or counseling patient: Coding Level of Care Code 56427 Subseq Hosp Care Lvl 3 Diagnoses MRSA bacteremia R78.81; B95.62 Anemia D64.9 Thrombocytosis D47.3 Weight loss R63.4 Dysphagia R13.10 Altered mental status R40.1 Altered mental status type: stupor Acute kidney injury N17.9 DVT prophylaxis Z29.9 (1) Altered mental status Altered mental status type: stupor Qualified Code(s): R40.1 - Stupor
[2019-11-12] MEDS: VANCOMYCIN HCL 750 MG in SODIUM CHLORIDE 0.9% 250 ML IV SCH (15:59)
[2019-11-12] MEDS: MULTI VIT W/MINERALS LIQUID 15 ML UDP PEG SCH (17:59)
[2019-11-12] MEDS ORDERED: VANCOMYCIN HCL 750 MG in SODIUM CHLORIDE 0.9% 250 ML IV SCH (20:00)
[2019-11-12] MEDS: POT PHOSPHATE MONOBASIC W/ SOD TAB GT SCH (21:30)
[2019-11-12] MEDS: PEPTAMEN 1.5 CAL 1,000 ML BAG GT SCH (23:00)
[2019-11-13] MEDS: VANCOMYCIN HCL 750 MG in SODIUM CHLORIDE 0.9% 250 ML IV SCH ×2 (04:07→16:52)
[2019-11-13] MEDS: ACETAMINOPHEN SOLN 650 MG/20.3 ML UDC GT PRN ×2 (05:36→12:50)
[2019-11-13 06:27] LABS: Hematocrit (blood only) 25.1 % (42-52); Mean Corpuscular Hemoglobin 30.9 pg (25-34); Mean Corpuscular Hgb Conc 31.9 g/dL (32-36); Mean Corpuscular Volume 96.9 fL (80-100); Platelet Count 615 K/uL (130-400); RDW Coefficient of Variation 18.3 % (11.5-14.5); Red Blood Count 2.59 M/uL (4.7-6.1); White Blood Count 8.96 K/uL (4.8-10.8)
[2019-11-13 07:10] LABS: BUN Creatinine Ratio 12.5 (10-20); Creatinine Clr Calc Pharmacy 115.1 ml/min; Est GFR (African American) 125.9; Est GFR (Non-African American) 108.6; Magnesium 1.9 mg/dl (1.8-2.4); Phosphorus 3.6 mg/dl (2.5-4.9); Potassium 3.2 mmol/L (3.5-5.1)
[2019-11-13] MEDS ORDERED: VANCOMYCIN TROUGH SCH (07:30)
[2019-11-13] MEDS: CYANOCOBALAMIN 500 MCG TABLET (VITAMIN B-12) PO SCH (08:38)
[2019-11-13] MEDS: FOLIC ACID 1 MG TAB PO SCH (08:38)
[2019-11-13] MEDS: LANSOPRAZOLE 15 MG SOLTAB GT SCH (08:38)
[2019-11-13] MEDS: ENOXAPARIN INJ 30 MG/0.3 ML SYR SQ SCH (08:38)
[2019-11-13] MEDS: MULTI VIT W/MINERALS LIQUID 15 ML UDP PEG SCH (08:38)
[2019-11-13] MEDS: THIAMINE HCL 100 MG TAB PEG SCH (08:38)
[2019-11-13] MEDS: ASPIRIN 81 MG CHEW GT SCH (08:38)
[2019-11-13] MEDS: MAGNESIUM OXIDE 400 MG TAB PO SCH ×2 (08:38→21:55)
[2019-11-13] MEDS: POT PHOSPHATE MONOBASIC W/ SOD TAB GT SCH ×2 (08:39→21:55)
[2019-11-13] MEDS ORDERED: POTASSIUM CHLORIDE 20 MEQ/15 ML UDC PO STA (10:28)
--- NOTE | 2019-11-13 13:40 | Hospitalist Progress Note ---
Date of Service November 13, 2019 Assessment & Plan (1) MRSA bacteremia: Cultured on 11/02 with rapid growth of 4/4 bottles with MRSA. No clear source other than right foot IV site which looked mildly red. PEG site looks clean without erythema or pus. No other rashes or focal infection site except now wth Right knee pain and swelling. - Blood cultures from 11/05 and 11/06 without any growth. - Echo on 11/04 showed no vegetations. Could not pursue JASON due to esophageal issues. - Continue vancomycin -> Will need prolonged IV antibiotics; plan for now is 4 weeks from 11/06/2019 (End date: 12/03/2019), hwever if Ortho feels knee is involved, may need longer course like 6 weeks. -needs weekly CBC, ESR, CRP,CMP while on Vanco (2) Anemia: Hgb was baseline ~9.0 - 10.0. Then trickled down to 7s and down to 6.8 on 11/10. No indication of bleeding. - Anemia labs indicate anemia of chronic disease worsened by phlebotomy while in the hospital. Ferritin was 1300 this admission. B12 was normal, and he is on repletion also. - Ordered 1 unit PRBCs on 11/10 with patient consent. - On 11/11, hemoglobin bounced appropriately to 8.1. Now steady at 8.0 -follow CBC (3) Thrombocytosis: Normal platelets until 11/07 as hemoglobin dropped lower.Most likely reactive from his anemia, now trending downward since PRBC transfusion -plts down to 615 today - Started ASA 81 mg on 11/10 for stroke prevention but will dc as has gastric ulcer history on EGD from 08/2019 (4) Weight loss: Multifactorial - concern on subacute to working towards chronic malnutiriton - appearing fairly severe. - PEG placed on 10/[address] Puentes -> Tolerating tube feeds well. Stopped TPN. - Continue feeds titrating up to goal and vitamins. -continue phosphate supplement (5) Dysphagia: Has had nausea and vomiting since August 2019. Initially thought to be due to gastric ulcer, but it never really improved, and he was brought back to the hospital multiple times for dehydration and hypernatremia. - EGD with Dr. Puentes showed lots of secretions and a tight lower esophageal sphincter. - Thought this could be achalasia. Will need manometry study at [facility]; likely as outpatient. -continue PEG tube feedings for now (6) Altered mental status: Metabolic encephalopathy. He has had ongoing encephalopathic features over several admissions and many weeks - ?chronicity of baseline problem / ?ability to recover. - Thiamine was <6 on 10/21/2019. -> Aggressively replaced thiamine (Wernicke dosing) -> Now on daily through G- tube. - In discussions with PCP, more of an acute on chronic picture is worrisome - especially with significant weight loss preceding the current few months of acute illness. (7) Acute kidney injury: Cr up to 9.7 present on admission (10/20/2019).Secondary to dehydration - Now down to 0.5. (8) Thiamine deficiency: as above, severe continue replacement (9) Hypokalemia: replace with KElixir 20meq po x 1 today plus some in tube feeds follow BMP, Magnesium (10) Knee pain: Right knee pain x 1 week, now with swelling and mild erythema COuld be MRSA infection at worst, vs bursitis Consult Ortho for further eval check knee xrays tylenol prn pain (11) Pulmonary nodule: 5mm nodule noted incidentally on imaging in [facility] Needs outpt follow up (12) History of gastric ulcer: gastric nonbleeding ulcers on EGD 08/2019 continue prevacid through PEG tube dc ASA (13) DVT prophylaxis: Lovenox 30 mg SQ daily Dispo-continued stay, workup knee pain and swelling, otherwise plan for dc to SNF with IV abx in the next 1-2 days Admission and Anticipated Discharge Date Admission Date: October 20, 2019 Subjective Pt having much worse right knee pain and now with swelling today. Cannot flex the knee past 90 degrees. Tylenol helps Otherwise, tube feeds being titrated back up to goal, at 25mL/hr Denies CP, cough, no SOB No abd pain, no nausea Review of Systems Review of Systems: All systems reviewed & are unremarkable except as noted in HPI & below Physical Exam Constitutional: + thin; no acute distress Eyes: + anicteric sclerae Neck: trachea midline, no thyromegaly Respiratory: normal respiratory effort, lungs clear to auscultation Cardiovascular: RRR, no murmur, no edema Chest (Breasts): Chest: normal inspection of chest Gastrointestinal (Abdomen): normal bowel sounds, soft, nontender, no hepatosplenomegaly Inspection/Auscultation: + abdomen abnormal to inspection (PEG tube in place, no drainage or erythema surrounding) Musculoskeletal: Extremities: + limited ROM of extremities (R knee ROM 0- 90passive and active); + extremities abnormal to inspection (right knee with suprapatellar fluctuence,one small spot erythema laterally), no cyanosis and no clubbing Skin: no rashes, warm and dry Neurologic: moves all extremities and awake; no focal motor deficits Psychiatric: Orientation: alert, oriented x 3 and cooperative Speech: normal rate/rhythm/volume of speech Lymphatic: no lymphedema Results & Data Results & Data ([facility]) Vital Signs (Past 12 Hours) Vital Signs Temp Pulse Resp BP Pulse Ox 11/13/19 07:20 36.6 C 85 18 103/59 L 97 Laboratory Results 11/13/19 11/13/19 11/13/19 Range/Units 11:47 06:05 06:05 WBC 8.96 (4.8-10.8) K/uL RBC 2.59 L (4.7-6.1) M/uL Hgb 8.0 L (14.0-18.0) g/dL Hct 25.1 L (42-52) % MCV 96.9 (80-100) fL MCH 30.9 (25-34) pg MCHC 31.9 L (32-36) g/dL RDW Std Deviation 65.0 H (36.4-46.3) fL RDW Coeff of Kaleigh 18.3 H (11.5-14.5) % Plt Count 615 H (130-400) K/uL MPV 9.0 (7.4-10.4) fL Sodium 141 (136-145) mmol/L Potassium 3.2 L (3.5-5.1) mmol/L Chloride 108 H (98-107) mmol/L Carbon Dioxide 25 (21-32) mmol/L Anion Gap 8.0 (3-11) BUN 7 (7-18) mg/dl Creatinine 0.55 L (0.6-1.4) mg/dl Est Cr Clr Drug Dosing 115.1 ml/min Est GFR ( Amer) 125.9 Est GFR (Non-Af Amer) 108.6 BUN/Creatinine Ratio 12.5 (10-20) Glucose 115 H (70-99) mg/dl POC Glucose 105 H (70-99) mg/dl Calcium 8.0 L (8.5-10.1) mg/dl Phosphorus 3.6 (2.5-4.9) mg/dl Magnesium 1.9 (1.8-2.4) mg/dl 11/13/19 11/12/19 11/12/19 Range/Units 05:26 23:46 16:39 WBC (4.8-10.8) K/uL RBC (4.7-6.1) M/uL Hgb (14.0-18.0) g/dL Hct (42-52) % MCV (80-100) fL MCH (25-34) pg MCHC (32-36) g/dL RDW Std Deviation (36.4-46.3) fL RDW Coeff of Kaleigh (11.5-14.5) % Plt Count (130-400) K/uL MPV (7.4-10.4) fL Sodium (136-145) mmol/L Potassium (3.5-5.1) mmol/L Chloride (98-107) mmol/L Carbon Dioxide (21-32) mmol/L Anion Gap (3-11) BUN (7-18) mg/dl Creatinine (0.6-1.4) mg/dl Est Cr Clr Drug Dosing ml/min Est GFR ( Amer) Est GFR (Non-Af Amer) BUN/Creatinine Ratio (10-20) Glucose (70-99) mg/dl POC Glucose 104 H 94 111 H (70-99) mg/dl Calcium (8.5-10.1) mg/dl Phosphorus (2.5-4.9) mg/dl Magnesium (1.8-2.4) mg/dl PG Care Time/CCT Total # of Minutes Spent Total Time Spent with Patient: Total time spent is greater than 50% in coordination of care (as documented) at patient's floor/unit and/or counseling patient: Coding Level of Care Code 39920 Subseq Hosp Care Lvl 3 Diagnoses MRSA bacteremia R78.81; B95.62 Anemia D64.9 Thrombocytosis D47.3 Weight loss R63.4 Dysphagia R13.10 Altered mental status R40.1 Altered mental status type: stupor Acute kidney injury N17.9 Thiamine deficiency E51.9 Hypokalemia E87.6 Knee pain M25.569 Pulmonary nodule R91.1 History of gastric ulcer Z87.19 DVT prophylaxis Z29.9 (1) Altered mental status Altered mental status type: stupor Qualified Code(s): R40.1 - Stupor
--- NOTE | 2019-11-13 13:52 | XRay Report ---
RIGHT KNEE 3 VIEWS CLINICAL HISTORY: Right knee pain and swelling. History of MRSA bacteremia. FINDINGS: AP, crosstable lateral, and sunrise views of the right knee are obtained. No prior studies are available for comparison at the time of dictation. The skeletal structures are osteopenic. No fra cture is seen. There is no bony erosion or periostitis. A 4 cm benign-appearing serpiginous sclerotic focus in the distal femoral shaft likely represents a bone infarct. There is moderate degenerative n arrowing at the patellofemoral articulation. Mild narrowing is seen in the medial and lateral compart ments. There is no radiographic evidence of joint effusion. Mild prepatellar soft tissue edema is not ed. There is advanced atherosclerotic calcification of the popliteal artery. IMPRESSION: Prepatellar soft tissue swelling with no acute bony abnormality identified. Electronically signed by: Herson Beard M.D. 11/13/2019 1:51 PM
[2019-11-13] MEDS ORDERED: VANCOMYCIN TROUGH ONE (15:30)
[2019-11-13] MEDS: VANCOMYCIN HCL 1,000 MG in SODIUM CHLORIDE 0.9% 250 ML IV SCH (15:41)
--- NOTE | 2019-11-13 16:37 | Pharmacy Report ---
Pharmacy Abx Dose Short Note - Date of Service November 13, 2019 - Assessment & Plan Assessment 64 year old M receiving IV Vancomycin for treatment of MRSA bacteremia Day # 10 of antimicrobial therapy. Plan Vancomycin * Trough level of 18.3 mcg/mL is therapeutic; this level was appropriately drawn, but is an early level not reflective of Vancomycin at steady state. True Css trough may be higher, but should not be supratherapeutic * Continue dose of 750 mg IV every 12 hours * Goal trough level for bacteremia : 15 to 20 mcg/mL * Trough level ordered for: 11/15/19 @ 0330 to ensure Vancomycin remains therapeutic at steady state Pharmacy will continue to follow and will adjust dose/frequency as necessary. Thank you.
--- NOTE | 2019-11-13 17:18 | Orthopedic Consultation ---
Date of Consultation November 13, 2019 Assessment & Plan (1) Knee pain: I aspirated his right knee at bedside. I got out 10 cc of cloudy straw- colored fluid. The fluid was certainly cloudy. I sent it to lab for a full synovial analysis. We will wait to see with the synovial analysis shows before we choose any further actions. Present on Admission?: Yes History of Present Illness Reason for Consultation: Right knee effusion Attending Physician: Bekah Can MD History of Present Illness Federico is a pleasant 64-year-old male who was initially admitted to the hospital over 3 weeks ago with mental status changes.His initial blood cultures were negative. He then had repeat blood cultures On November 02 which were positive for MRSA. He was diagnosed with bacteremia. He has some redness in his foot from an IV and a negative echocardiogram. We still do not know the source of the bacteremia. Fortunately more recent blood cultures have been negative. About a week ago he began having pain and swelling in his right knee. He says he has had on and off knee pain throughout his life but this knee pains little bit worse. He is able to ambulate on it. He is able to bend it but it is painful and ranges of motion. There was some concern with seeding from the joint so orthopedics was consulted to evaluate and treat. Allergies Allergy/AdvReac Type Severity Reaction Status Date / Time bee venom protein (honey bee) Allergy Severe ANAPHYLACTIC Verified 10/20/19 21:07 REACTION A CHILD Home Medications Home Medications Medication Instructions Recorded Confirmed Type epinephrine [EpiPen] 0.3 mg IM DIRECTED PRN 08/14/19 10/20/19 History acetaminophen 650 mg G-TUBE Q6H PRN #0 ml 11/03/19 Rx cyanocobalamin (vitamin B-12) 500 mcg PO QAM #1 tab 11/03/19 Rx lansoprazole [Prevacid SoluTab] 15 mg G-TUBE QAM #0 tab 11/03/19 Rx nut.tx.impaired digest fxn 1,000 ml G-TUBE UD #0 ml 11/03/19 Rx [Peptamen 1.5] thiamine HCl (vitamin B1) [Vitamin 100 mg PEG QAM #1 tab 11/03/19 Rx B-1] Patient History Medical History SHAGGY (acute kidney injury) Chronic back pain Electrolyte abnormality Clinically consistent with dehydration, NSAID use, uric acid nephropathy, and ATN. Tolerating IVF well. Creatinine continues to improve. Uremia also improving with management. Free water deficit persist (~4.5 L). Unable to tolerate medications or fluids by mouth. IVF switched to 1/4 NaCl + 20 KCl @ 200 ml/h yesterday evening. Urine appropriately alkaline. Noted UA crystals in urine yesterday AM. Serum UA level improving. Hypokalemia and hypophosphatemia noted. magnesium falling. K phos x 30 mmol IV ordered. Will continue to monitor labs twice daily and replace as needed. No adjustment to IVF infusion at this time. Hematemesis Hypertension Pulmonary nodule Thrombocytopenia Vomiting Surgical History H/O right hemicolectomy Social History Smoking Status: Former smoker Second Hand Exposure: No; Hx Alcohol Use: No Hx Substance Use: No Preferred Language: Sami Communication Ability: Impaired Crystal Slicer Required: No Beliefs That Will Affect Care: None Current Living Situation: Spouse Feels Safe at Home: Yes Review of Systems Review of Systems: All systems reviewed & are unremarkable except as noted in HPI & below Physical Exam Constitutional: WD/WN, vitals as above Eyes: PERRL, conjunctivae normal, anicteric sclerae ENMT: external ear and nose normal, oropharynx normal Neck: trachea midline, no thyromegaly Respiratory: normal respiratory effort Cardiovascular: RRR, no murmur, no edema Gastrointestinal (Abdomen): normal bowel sounds, soft, nontender, no hepatosplenomegaly Musculoskeletal: On physical examination of the right knee, there is a 2+ effusion. It is a little bit painful to palpation. There is no redness or obvious signs of infection. He is able to fully extend and flex it to about 90 degrees before becomes sore. Psychiatric: A+Ox3, euthymic affect Results & Data ([facility]) Vital Signs (Past 12 Hours) Vital Signs Temp Pulse Resp BP Pulse Ox 11/13/19 15:14 36.4 C L 102 H 20 109/62 92 11/13/19 07:20 36.6 C 85 18 103/59 L 97 Diagnostic Findings X-rays of the right knee show some mild osteoarthritis. 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 PG Care Time/CCT Total # of Minutes Spent Total Time Spent with Patient: Total time spent is greater than 50% in coordination of care (as documented) at patient's floor/unit and/or counseling patient: Coding Level of Care Code 74615 Inpt Consult Level 4 Diagnoses Knee pain M25.569
[2019-11-13 18:37] LABS: Appearance Synovial Fluid CLOUDY; Color Synovial Fluid YELLOW; Mononuclear WBC Synovial 5.1 %; Polynuclear WBC Synovial 94.9 %; RBC Synovial Fluid (A) < 3000 /uL; Source Synovial Fluid KNEE; WBC Synovial Fluid (A) 63740 /ul (0-200)
[2019-11-13] MEDS: PEPTAMEN 1.5 CAL 1,000 ML BAG GT SCH (22:02)
[2019-11-14] MEDS: VANCOMYCIN HCL 750 MG in SODIUM CHLORIDE 0.9% 250 ML IV SCH ×2 (04:07→16:13)
[2019-11-14 06:34] LABS: Basophils % (auto) 0.4 %; Eosinophils % (auto) 0.6 %; Hemoglobin 7.5 g/dL (14.0-18.0); Immature Granulocytes % (auto) 0.9 %; Lymphocytes # (auto) 1.48 K/uL (1.2-3.4); Lymphocytes % (auto) 19.2 %; Mean Corpuscular Hemoglobin 30.9 pg (25-34); Mean Corpuscular Hgb Conc 31.3 g/dL (32-36); Mean Corpuscular Volume 98.8 fL (80-100); Mean Platelet Volume 9.1 fL (7.4-10.4); Monocytes # (auto) 1.07 K/uL (0.11-0.59); Monocytes % (auto) 13.9 %; Neutrophils # (auto) 5.01 K/uL (1.4-6.5); Platelet Count 572 K/uL (130-400); RDW Coefficient of Variation 17.8 % (11.5-14.5); RDW Standard Deviation 64.7 fL (36.4-46.3); Red Blood Count 2.43 M/uL (4.7-6.1); White Blood Count 7.71 K/uL (4.8-10.8)
[2019-11-14 06:35] LABS: Basophils # (auto) 0.03 K/uL (0-0.2); Eosinophils # (auto) 0.05 K/uL (0-0.5); Immature Granulocytes # (auto) 0.07 K/uL (0.00-0.02)
--- NOTE | 2019-11-14 06:56 | Orthopedic Progress Note ---
Date of Service November 14, 2019 Assessment & Plan (1) Knee pain: The aspiration from his knee was cloudy. It did look like gout upon aspiration. He does have a history of gout in his foot. I did send it down to lab for analysis. It did show an elevated white blood cell count in the area of 63,000. This could either be gout or infection. I am awaiting the synovial crystals to come back I am also awaiting the culture results. We will continue to treat him when those lab studies are finalized. Present on Admission?: Yes Admission and Anticipated Discharge Date Admission Date: October 20, 2019 Carroll Samayoa was seen and examined at bedside this morning. His says his knee felt a little better after the aspiration. He is not having any worsening of symptoms. He has no new complaints. Physical Exam Musculoskeletal: On physical examination of his right knee, there is still a 2+ effusion. He has range of motion from 5 to 90 degrees. He is a little painful and range of motion. There is no signs of abscess or infection around the knee such as erythema. Results & Data ([facility]) Vital Signs (Past 12 Hours) Vital Signs Temp Pulse Resp BP Pulse Ox 11/13/19 23:25 37.4 C 95 H 19 115/65 93 PG Care Time/CCT Total # of Minutes Spent Total Time Spent with Patient: Total time spent is greater than 50% in coordination of care (as documented) at patient's floor/unit and/or counseling patient: Coding Level of Care Code 66612 Inpt Consult Level 3 Diagnoses Knee pain M25.569
[2019-11-14 07:04] LABS: RBC Morphology Unremarkable
[2019-11-14 07:06] LABS: Albumin Level 1.7 gm/dl (3.4-5.0); BUN Creatinine Ratio 15.8 (10-20); Calcium 7.9 mg/dl (8.5-10.1); Creatinine Clr Calc Pharmacy 122.1 ml/min; Est GFR (African American) 128.8; Est GFR (Non-African American) 111.1; Magnesium 1.7 mg/dl (1.8-2.4); Potassium 3.2 mmol/L (3.5-5.1)
[2019-11-14 07:09] LABS: Albumin Globulin Ratio 0.5 (0.9-2); Bilirubin,Total 0.4 mg/dl (0.2-1); Globulin 3.8 gm/dl (2.5-4.0); Phosphorus 3.6 mg/dl (2.5-4.9); Total Protein 5.5 gm/dl (6.4-8.2)
[2019-11-14] MEDS ORDERED: VANCOMYCIN TROUGH SCH (07:30)
[2019-11-14] MEDS: POT PHOSPHATE MONOBASIC W/ SOD TAB GT SCH ×2 (09:05→21:38)
[2019-11-14] MEDS: THIAMINE HCL 100 MG TAB PEG SCH (09:16)
[2019-11-14] MEDS: FOLIC ACID 1 MG TAB PO SCH (09:17)
[2019-11-14] MEDS: MAGNESIUM OXIDE 400 MG TAB PO SCH ×2 (09:17→21:38)
[2019-11-14] MEDS: LANSOPRAZOLE 15 MG SOLTAB GT SCH (09:17)
[2019-11-14] MEDS: MULTI VIT W/MINERALS LIQUID 15 ML UDP PEG SCH (09:17)
[2019-11-14] MEDS: CYANOCOBALAMIN 500 MCG TABLET (VITAMIN B-12) PO SCH (09:17)
[2019-11-14] MEDS: ENOXAPARIN INJ 30 MG/0.3 ML SYR SQ SCH (09:18)
[2019-11-14] MEDS ORDERED: POTASSIUM CHLORIDE 20 MEQ/15 ML UDC PO STA (09:25)
[2019-11-14] MEDS ORDERED: MAGNESIUM SULFATE / D5W 1 GM/100 ML BAG IV ONE (09:30)
[2019-11-14] MEDS: ACETAMINOPHEN SOLN 650 MG/20.3 ML UDC GT PRN (10:42)
[2019-11-14] MEDS: FERROUS SULFATE 325 MG/7.4 ML UDP PO SCH ×2 (10:44→16:19)
--- NOTE | 2019-11-14 14:52 | Hospitalist Progress Note ---
Date of Service November 14, 2019 Assessment & Plan (1) MRSA bacteremia: Cultured on 11/02 with rapid growth of 4/4 bottles with MRSA. No clear source other than right foot IV site which looked mildly red. PEG site looks clean without erythema or pus, however could have seeded bloodstream during this procedure I suppose. No other rashes or focal infection site except now with Right knee pain and swelling which may have been seeded from the bacteremia. - Blood cultures from 11/05 and 11/06 now without any growth. Appreciate ID consultation - Echo on 11/04 showed no vegetations. Could not pursue JASON due to esophageal issues. - Continue vancomycin -> Will need prolonged IV antibiotics; plan for now is 4 weeks from 11/06/2019 (End date: 12/03/2019) especially given history of right total hip arthroplasty; however if Ortho feels knee is involved, may need longer course like 6 weeks. Going for knee washout tomorrow as below -needs weekly CBC, ESR, CRP,CMP while on Vanco, goal Vanco trough is 15-20 He has a PICC line in place in the right upper extremity since 11/10 (2) Anemia: Hgb was baseline ~9.0 - 10.0. Then trickled down to 7s and down to 6.8 on 11/10. No indication of bleeding. - Anemia labs indicate anemia of chronic disease worsened by phlebotomy while in the hospital. Ferritin was 1300 this admission secondary to inflammation,. B12 was normal, and he is on repletion also. - Ordered 1 unit PRBCs on 11/10 with patient consent. - On 11/11, hemoglobin bounced appropriately to 8.1. Hemoglobin today has dropped slightly to 7.5-hemodynamically stable and again no evidence of bleeding -Add ferrous sulfate elixir 325 mg per G-tube twice daily -follow CBC and transfuse if drops below 7 (3) Thrombocytosis: Normal platelets until 11/07 as hemoglobin dropped lower.Most likely reactive from his anemia, now trending downward since PRBC transfusion -plts down to 572 today - Started ASA 81 mg on 11/10 for stroke prevention but have since discontinued as has gastric ulcer history on EGD from 08/2019 (4) Weight loss: Multifactorial - concern on subacute to working towards chronic malnutiriton - appearing fairly severe. - PEG placed on 10/[address] Puentes -> Tolerating tube feeds well. Stopped TPN. - Continue feeds titrating up to goal and vitamins. Discussed with dietitian- increasing rate today -continue phosphate supplement (5) Dysphagia: Has had nausea and vomiting since August 2019. Initially thought to be due to gastric ulcer, but it never really improved, and he was brought back to the hospital multiple times for dehydration and hypernatremia. - EGD with Dr. Puentes showed lots of secretions and a tight lower esophageal sphincter. - Thought this could be achalasia. Will need manometry study at [place]; likely as outpatient. Perhaps he could get Botox injections versus other treatment for this -continue PEG tube feedings for now to improve nutritional status -He is to remain strictly n.p.o. (6) Altered mental status: Metabolic encephalopathy. He has had ongoing encephalopathic features over several admissions and many weeks - ?chronicity of baseline problem / ?ability to recover. - Thiamine was <6 on 10/21/2019. -> Aggressively replaced thiamine (Wernicke dosing) -> Now on daily through G- tube. - In discussions with PCP, more of an acute on chronic picture is worrisome - especially with significant weight loss preceding the current few months of acute illness. Seems to be significantly improved from previous, but remains forgetful at times -Watch for constipation-reports he had a bowel movement on 11/13 but none recorded since 11/08 (7) Acute kidney injury: Cr up to 9.7 present on admission (10/20/2019).Secondary to dehydration - Now down to 0.5 and stable, making urine (8) Thiamine deficiency: as above, severe continue replacement with daily thiamine through PEG tube (9) Hypokalemia: replace with KElixir po x 1 today plus some in tube feeds follow BMP, Magnesium (10) Knee pain: Right knee pain x 1 week, then developed swelling and mild erythema on 11/12 Knee x-ray with likely bony infarct in the distal femur, otherwise no significant abnormalities Orthopedics aspirated the joint and it was cloudy yellow fluid, negative for crystals under microscope, Gram stain with WBCs but no organisms, culture pending WBC count 63,000, does not seem quite high enough for septic joint, however he has been on IV vancomycin for over a week COuld be MRSA infection at worst, versus gout although absence of crystals Consult Ortho for further eval appreciated-plan for washout of the knee tomorrow -Hold tube feeds after midnight Continue Tylenol prn pain (11) Pulmonary nodule: 5mm nodule noted incidentally on imaging in [facility] Needs outpt follow up (12) History of gastric ulcer: gastric nonbleeding ulcers on EGD 08/2019 Hemoglobin slowly trending downward again but no evidence of melena continue prevacid through PEG tube dcd ASA (13) DVT prophylaxis: Discontinue Lovenox in preparation for surgery Dispo-continued stay, plan for knee washout and then to rehab with IV antibiotics in the next 2 to 3 days Admission and Anticipated Discharge Date Admission Date: October 20, 2019 Subjective Patient reports his knee is feeling a little bit better but still stiff and sore. We discussed the orthopedics recommendation for a knee washout tomorrow which he is agreeable to after discussion of the pros and cons. He denies any chest pain or shortness of breath, no abdominal pain. He remains afebrile. Tube feeds are being increased. I discussed his case with nutrition today. He is not bleeding from anywhere. He did have a bowel movement today. I also discussed his case with his over the phone. I discussed his case with the orthopedic surgeon as well. Review of Systems Review of Systems: All systems reviewed & are unremarkable except as noted in HPI & below Physical Exam Constitutional: + thin; no acute distress Eyes: + anicteric sclerae Neck: trachea midline, no thyromegaly Respiratory: normal respiratory effort, lungs clear to auscultation Cardiovascular: RRR, no murmur, no edema Chest (Breasts): Chest: normal inspection of chest Gastrointestinal (Abdomen): normal bowel sounds, soft, nontender, no hepatosplenomegaly Inspection/Auscultation: + abdomen abnormal to inspection (PEG tube in place, no drainage or erythema surrounding) Musculoskeletal: Extremities: + limited ROM of extremities (R knee ROM 0- 90passive and active); + extremities abnormal to inspection (right knee with now small joint effusion,one small spot erythema laterally persists), no cyanosis and no clubbing Skin: no rashes, warm and dry Neurologic: moves all extremities and awake; no focal motor deficits Psychiatric: Orientation: alert, oriented x 3 and cooperative Speech: normal rate/rhythm/volume of speech Lymphatic: no lymphedema Results & Data Results & Data ([facility]) Vital Signs (Past 12 Hours) Vital Signs Temp Pulse Resp BP Pulse Ox 11/14/19 07:57 37.4 C 89 18 110/65 96 Laboratory Results 11/14/19 11/14/19 11/14/19 Range/Units 11:44 06:02 06:02 WBC 7.71 (4.8-10.8) K/uL RBC 2.43 L (4.7-6.1) M/uL Hgb 7.5 L (14.0-18.0) g/dL Hct 24.0 L (42-52) % MCV 98.8 (80-100) fL MCH 30.9 (25-34) pg MCHC 31.3 L (32-36) g/dL RDW Std Deviation 64.7 H (36.4-46.3) fL RDW Coeff of Kaleigh 17.8 H (11.5-14.5) % Plt Count 572 H (130-400) K/uL MPV 9.1 (7.4-10.4) fL Immature Gran % (Auto) 0.9 % Neut % (Auto) 65.0 % Lymph % (Auto) 19.2 % [place] % (Auto) 13.9 % Eos % (Auto) 0.6 % Baso % (Auto) 0.4 % Neut # (Auto) 5.01 (1.4-6.5) K/uL Lymph # (Auto) 1.48 (1.2-3.4) K/uL [place] # (Auto) 1.07 H (0.11-0.59) K/uL Eos # (Auto) 0.05 (0-0.5) K/uL Baso # (Auto) 0.03 (0-0.2) K/uL Immature Gran # (Auto) 0.07 H (0.00-0.02) K/uL RBC Morphology Unremarkable Sodium 141 (136-145) mmol/L Potassium 3.2 L (3.5-5.1) mmol/L Chloride 108 H (98-107) mmol/L Carbon Dioxide 26 (21-32) mmol/L Anion Gap 7.0 (3-11) BUN 8 (7-18) mg/dl Creatinine 0.52 L (0.6-1.4) mg/dl Est Cr Clr Drug Dosing 122.1 ml/min Est GFR ( Amer) 128.8 Est GFR (Non-Af Amer) 111.1 BUN/Creatinine Ratio 15.8 (10-20) Glucose 90 (70-99) mg/dl POC Glucose 111 H (70-99) mg/dl Calcium 7.9 L (8.5-10.1) mg/dl Phosphorus 3.6 (2.5-4.9) mg/dl Magnesium 1.7 L (1.8-2.4) mg/dl Total Bilirubin 0.4 (0.2-1) mg/dl AST 9 L (15-37) U/L ALT 9 L (12-78) U/L Alkaline Phosphatase 58 (45-117) U/L Total Protein 5.5 L (6.4-8.2) gm/dl Albumin 1.7 L (3.4-5.0) gm/dl Globulin 3.8 (2.5-4.0) gm/dl Albumin/Globulin Ratio 0.5 L (0.9-2) Fld Lyme DNA (PCR) Synovial Crystals Lyme Specimen Source 11/14/19 11/14/19 11/13/19 Range/Units 05:53 00:17 18:15 WBC (4.8-10.8) K/uL RBC (4.7-6.1) M/uL Hgb (14.0-18.0) g/dL Hct (42-52) % MCV (80-100) fL MCH (25-34) pg MCHC (32-36) g/dL RDW Std Deviation (36.4-46.3) fL RDW Coeff of Kaleigh (11.5-14.5) % Plt Count (130-400) K/uL MPV (7.4-10.4) fL Immature Gran % (Auto) % Neut % (Auto) % Lymph % (Auto) % [place] % (Auto) % Eos % (Auto) % Baso % (Auto) % Neut # (Auto) (1.4-6.5) K/uL Lymph # (Auto) (1.2-3.4) K/uL [place] # (Auto) (0.11-0.59) K/uL Eos # (Auto) (0-0.5) K/uL Baso # (Auto) (0-0.2) K/uL Immature Gran # (Auto) (0.00-0.02) K/uL RBC Morphology Sodium (136-145) mmol/L Potassium (3.5-5.1) mmol/L Chloride (98-107) mmol/L Carbon Dioxide (21-32) mmol/L Anion Gap (3-11) BUN (7-18) mg/dl Creatinine (0.6-1.4) mg/dl Est Cr Clr Drug Dosing ml/min Est GFR ( Amer) Est GFR (Non-Af Amer) BUN/Creatinine Ratio (10-20) Glucose (70-99) mg/dl POC Glucose 105 H 114 H (70-99) mg/dl Calcium (8.5-10.1) mg/dl Phosphorus (2.5-4.9) mg/dl Magnesium (1.8-2.4) mg/dl Total Bilirubin (0.2-1) mg/dl AST (15-37) U/L ALT (12-78) U/L Alkaline Phosphatase (45-117) U/L Total Protein (6.4-8.2) gm/dl Albumin (3.4-5.0) gm/dl Globulin (2.5-4.0) gm/dl Albumin/Globulin Ratio (0.9-2) Fld Lyme DNA (PCR) Pending Synovial Crystals Lyme Specimen Source Pending 11/13/19 Range/Units 18:15 WBC (4.8-10.8) K/uL RBC (4.7-6.1) M/uL Hgb (14.0-18.0) g/dL Hct (42-52) % MCV (80-100) fL MCH (25-34) pg MCHC (32-36) g/dL RDW Std Deviation (36.4-46.3) fL RDW Coeff of Kaleigh (11.5-14.5) % Plt Count (130-400) K/uL MPV (7.4-10.4) fL Immature Gran % (Auto) % Neut % (Auto) % Lymph % (Auto) % [place] % (Auto) % Eos % (Auto) % Baso % (Auto) % Neut # (Auto) (1.4-6.5) K/uL Lymph # (Auto) (1.2-3.4) K/uL [place] # (Auto) (0.11-0.59) K/uL Eos # (Auto) (0-0.5) K/uL Baso # (Auto) (0-0.2) K/uL Immature Gran # (Auto) (0.00-0.02) K/uL RBC Morphology Sodium (136-145) mmol/L Potassium (3.5-5.1) mmol/L Chloride (98-107) mmol/L Carbon Dioxide (21-32) mmol/L Anion Gap (3-11) BUN (7-18) mg/dl Creatinine (0.6-1.4) mg/dl Est Cr Clr Drug Dosing ml/min Est GFR ( Amer) Est GFR (Non-Af Amer) BUN/Creatinine Ratio (10-20) Glucose (70-99) mg/dl POC Glucose (70-99) mg/dl Calcium (8.5-10.1) mg/dl Phosphorus (2.5-4.9) mg/dl Magnesium (1.8-2.4) mg/dl Total Bilirubin (0.2-1) mg/dl AST (15-37) U/L ALT (12-78) U/L Alkaline Phosphatase (45-117) U/L Total Protein (6.4-8.2) gm/dl Albumin (3.4-5.0) gm/dl Globulin (2.5-4.0) gm/dl Albumin/Globulin Ratio (0.9-2) Fld Lyme DNA (PCR) Synovial Crystals Lyme Specimen Source Joint/synovial fluid aspirate-Gram stain with many WBCs, no organisms, culture pending PG Care Time/CCT Total # of Minutes Spent Total Time Spent with Patient: Total time spent is greater than 50% in coordination of care (as documented) at patient's floor/unit and/or counseling patient: Coding Level of Care Code 44148 Subseq Hosp Care Lvl 3 Diagnoses MRSA bacteremia R78.81; B95.62 Anemia D64.9 Thrombocytosis D47.3 Weight loss R63.4 Dysphagia R13.10 Altered mental status R40.1 Altered mental status type: stupor Acute kidney injury N17.9 Thiamine deficiency E51.9 Hypokalemia E87.6 Knee pain M25.569 Pulmonary nodule R91.1 History of gastric ulcer Z87.19 DVT prophylaxis Z29.9 (1) Altered mental status Altered mental status type: stupor Qualified Code(s): R40.1 - Stupor
[2019-11-15] MEDS ORDERED: VANCOMYCIN TROUGH ONE (03:30)
[2019-11-15 03:46] LABS: Basophils # (auto) 0.03 K/uL (0-0.2); Basophils % (auto) 0.4 %; Eosinophils # (auto) 0.11 K/uL (0-0.5); Eosinophils % (auto) 1.4 %; Hematocrit (blood only) 23.8 % (42-52); Hemoglobin 7.5 g/dL (14.0-18.0); Immature Granulocytes # (auto) 0.07 K/uL (0.00-0.02); Immature Granulocytes % (auto) 0.9 %; Lymphocytes % (auto) 19.2 %; Mean Corpuscular Hemoglobin 30.5 pg (25-34); Mean Corpuscular Hgb Conc 31.5 g/dL (32-36); Mean Corpuscular Volume 96.7 fL (80-100); Mean Platelet Volume 8.9 fL (7.4-10.4); Monocytes # (auto) 0.73 K/uL (0.11-0.59); Monocytes % (auto) 9.3 %; Neutrophils # (auto) 5.39 K/uL (1.4-6.5); Neutrophils % (auto) 68.8 %; Platelet Count 515 K/uL (130-400); RDW Coefficient of Variation 17.4 % (11.5-14.5); RDW Standard Deviation 61.7 fL (36.4-46.3); Red Blood Count 2.46 M/uL (4.7-6.1); White Blood Count 7.83 K/uL (4.8-10.8)
[2019-11-15 04:04] LABS: Alanine Aminotransferase 11 U/L (12-78); Albumin Level 1.7 gm/dl (3.4-5.0); Aspartate Aminotransferase 9 U/L (15-37); Blood Urea Nitrogen 6 mg/dl (7-18); Calcium 8.1 mg/dl (8.5-10.1); Carbon Dioxide 26 mmol/L (21-32); Chloride 109 mmol/L (98-107); Creatinine Clr Calc Pharmacy 167.1 ml/min; Est GFR (African American) 146.5; Est GFR (Non-African American) 126.4; Glucose 90 mg/dl (70-99); Magnesium 1.8 mg/dl (1.8-2.4); Potassium 3.2 mmol/L (3.5-5.1); Sodium 141 mmol/L (136-145)
[2019-11-15 04:07] LABS: Alkaline Phosphatase 60 U/L (45-117); Bilirubin Direct < 0.1 mg/dl (0-0.2); Bilirubin,Total 0.3 mg/dl (0.2-1); Phosphorus 3.8 mg/dl (2.5-4.9); Total Protein 5.6 gm/dl (6.4-8.2)
[2019-11-15 04:13] LABS: RBC Morphology Unremarkable
[2019-11-15] MEDS: VANCOMYCIN HCL 750 MG in SODIUM CHLORIDE 0.9% 250 ML IV SCH ×2 (04:37→19:13)
--- NOTE | 2019-11-15 07:46 | Pharmacy Report ---
Pharmacy Abx Dose Short Note - Date of Service November 15, 2019 - Assessment & Plan Assessment 64 year old M receiving IV Vancomycin for treatment of MRSA bacteremia Day # 12 of antimicrobial therapy. Plan Vancomycin * Trough level came back therapeutic at ~15 mcg/ml (goal 15-20 mcg/ml) * Plan to continue same vancomycin dosing for now. Level on lower end of range, however hesitant to increase as higher dosing caused supratherapeutic levels. Plan to recheck level in next 2-3 days to ensure it remains therapeutic * Renal function remains stable. * Patient needs extended IV antibiotics given hx of right total hip arthroplasty. Would recommend checking trough outpatient 1-2x weekly to ensure level remains 15-20 mcg/ml. Also following renal function to ensure stable Pharmacy will continue to follow and will adjust dose/frequency as necessary. Thank you.
[2019-11-15] MEDS: POTASSIUM CHLORIDE / WTR 10 MEQ/100 ML PLCT IV SCH ×2 (09:10→10:14)
--- NOTE | 2019-11-15 09:15 | Orthopedic Progress Note ---
Date of Service November 15, 2019 Assessment & Plan (1) Septic arthritis: Labs were reviewed with Dr. Gavin and Dr. Hernández. His aspiration shows no crystals. We will plan on taking him to the operating room today for arthroscopic irrigation and debridement. This will be with Dr. Hernández. He is npo. Procedure was explained including risk, benefits, and alternatives to surgery. Consent was obtained. We will send the fluid off again for crystal analysis and gram stain/cultures. (2) Knee pain: Admission and Anticipated Discharge Date Admission Date: October 20, 2019 Subjective 64 year old male with MRSA bacteremia, with continued right knee pain. His pain is worse with activity. No new orthopedic complaints this morning. Physical Exam Physical Exam: Alert, NAD. Right leg: He does have a knee effusion. He can do a straight leg raise. Painful range of motion. Skin intact. Results & Data ([facility]) Vital Signs (Past 12 Hours) Vital Signs Temp Pulse Resp BP BP Pulse Ox 11/15/19 07:02 37.0 C 86 16 114/62 95 11/14/19 23:10 36.9 C 90 15 115/62 94 PG Care Time/CCT Total # of Minutes Spent Total Time Spent with Patient: Total time spent is greater than 50% in coordination of care (as documented) at patient's floor/unit and/or counseling patient: Coding Level of Care Code None Diagnoses Septic arthritis M00.9 Knee pain M25.569
[2019-11-15] MEDS: FOLIC ACID 1 MG TAB PO SCH (10:11)
[2019-11-15] MEDS: FERROUS SULFATE 325 MG/7.4 ML UDP PO SCH ×2 (10:11→19:14)
[2019-11-15] MEDS: MULTI VIT W/MINERALS LIQUID 15 ML UDP PEG SCH (10:11)
[2019-11-15] MEDS: MAGNESIUM OXIDE 400 MG TAB PO SCH ×2 (10:11→20:53)
[2019-11-15] MEDS: LANSOPRAZOLE 15 MG SOLTAB GT SCH (10:12)
[2019-11-15] MEDS: CYANOCOBALAMIN 500 MCG TABLET (VITAMIN B-12) PO SCH (10:12)
[2019-11-15] MEDS: THIAMINE HCL 100 MG TAB PEG SCH (10:12)
[2019-11-15] MEDS: POT PHOSPHATE MONOBASIC W/ SOD TAB GT SCH ×2 (10:12→20:52)
--- NOTE | 2019-11-15 11:22 | History & Physical Bridge Note ---
Date of Service November 15, 2019 History & Physical Bridge Note I have examined the patient, reviewed the History & Physical and in the interval since the performance of the History & Physical I have noted the following changes of clinical significance: no changes noted
[2019-11-15] MEDS ORDERED: fentaNYL citrate 100 MCG/2 ML VIAL ONE ×3 (15:06→17:39)
[2019-11-15] MEDS ORDERED: ONDANSETRON INJ 2 MG/ML 2 ML VIAL ONE (15:06)
[2019-11-15] MEDS ORDERED: MIDAZOLAM HCL 1 MG/ML 2ML VIAL ONE (15:06)
[2019-11-15] MEDS ORDERED: PROPOFOL IV EMULSION 10 MG/ML 20 ML VIAL IV ONE (15:06)
[2019-11-15] MEDS ORDERED: LIDOCAINE HCL 2% 2 ML VIAL/AMP(20MG/ML) INFIL ONE (15:06)
[2019-11-15] MEDS ORDERED: EpINEphrine HCL INJ 1 MG/ML 1ML SYRINGE ONE (15:28)
--- NOTE | 2019-11-15 15:48 | Anesthesiology Consultation ---
Date of Service November 15, 2019 Assessment & Plan Chart Review Chart Review: Acceptable Risk for Surgery and Patient NOT seen in Pre Admission Testing Consults Requested none ASA ASA4 Proposed Anesthesia Anesthesia Type: General Risk / Benefits Reviewed With: PT / POA / Parent / Guardian, Accepts Plan and Informed Consent Obtained Additional Comments: covid testing negative History Surgery Operation Date: 10/31/19 08:30 Proposed Procedures p Esophagogastroduodenoscopy with Gastric Tube Placement Dr Puentes - Karl Puentes Operation Date: 11/15/19 07:00 Proposed Procedures p Right Knee Arthroscopy - Grabiel Gavin, Height/Weight Height: 5 ft 8 in Weight: 60.2 kg Allergies Allergy/AdvReac Type Severity Reaction Status Date / Time bee venom protein (honey bee) Allergy Severe ANAPHYLACTIC Verified 10/20/19 21:07 REACTION A CHILD Medications Home Medications Medication Instructions Recorded Confirmed Last Taken epinephrine [EpiPen] 0.3 mg IM DIRECTED PRN 08/14/19 10/20/19 Unknown acetaminophen 650 mg G-TUBE Q6H PRN #0 ml 11/03/19 Unknown cyanocobalamin (vitamin B-12) 500 mcg PO QAM #1 tab 11/03/19 Unknown lansoprazole [Prevacid SoluTab] 15 mg G-TUBE QAM #0 tab 11/03/19 Unknown nut.tx.impaired digest fxn 1,000 ml G-TUBE UD #0 ml 11/03/19 Unknown [Peptamen 1.5] thiamine HCl (vitamin B1) [Vitamin 100 mg PEG QAM #1 tab 11/03/19 Unknown B-1] Active Medications Generic Name Dose Route Start Last Admin Trade Name Freq PRN Reason Stop Dose Admin Acetaminophen 650 mg 11/03/19 15:48 11/14/19 10:42 Acetaminophen Soln 650 Mg/20.3 Ml Udc GT 12/03/19 15:47 650 mg Q6H PRN Administration Pain or Fever Calamine/Phenol 1 appln 10/25/19 00:32 11/07/19 07:58 Menthol-Zinc Oxide 360 Appln/120 Gm Tube EXT 11/24/19 00:31 1 appln QID PRN Administration Rash Cyanocobalamin 500 mcg 10/25/19 09:00 11/15/19 10:12 Cyanocobalamin 500 Mcg Tablet (Vitamin B-12) PO 11/24/19 08:59 Not Given QAM GRADY Enteral Nutritional Formula 1,000 ml 11/01/19 09:00 11/13/19 22:02 Peptamen 1.5 Roc 1,000 Ml Bag GT 12/01/19 08:59 1,000 ml UD GRADY Administration Protocol Ferrous Sulfate 325 mg 11/14/19 09:25 11/15/19 10:11 Ferrous Sulfate 325 Mg/7.4 Ml Udp PO 12/14/19 09:24 Not Given BIDM GRADY Folic Acid 1 mg 11/08/19 18:30 11/15/19 10:11 Folic Acid 1 Mg Tab PO 12/08/19 18:29 Not Given QAM [facility] Heparin Sodium (Beef Lung) 5 ml 11/11/19 21:30 11/15/19 11:30 Heparin 10 Unit/Ml 5 Ml Flush FLUSH 12/11/19 21:29 5 ml PRN PRN Administration Flush Vancomycin HCl 750 mg/ Sodium 265 mls @ 125 mls/hr 11/12/19 16:00 11/15/19 06:45 Chloride IV 11/26/19 15:59 Infused Q12H [facility] Infusion Protocol Lansoprazole 15 mg 11/04/19 09:00 11/15/19 10:12 Lansoprazole 15 Mg Soltab GT 12/04/19 08:59 Not Given QAM [facility] Magnesium Oxide 400 mg 10/23/19 21:00 11/15/19 10:11 Magnesium Oxide 400 Mg Tab PO 11/22/19 20:59 Not Given BID [facility] Multivitamins/Minerals 15 ml 11/12/19 16:30 11/15/19 10:11 Multi Vit W/Minerals Liquid 15 Ml Udp PEG 12/12/19 16:29 Not Given QAM [facility] Ondansetron HCl 4 mg 10/31/19 15:47 10/31/19 16:31 Ondansetron Inj 2 Mg/Ml 2 Ml Vial IV 11/30/19 15:46 4 mg Q6H PRN Administration Nausea Potassium Phosphate 2 tab 11/12/19 21:00 11/15/19 10:12 Pot Phosphate Monobasic W/ Sod Tab GT 12/12/19 20:59 Not Given BID GRADY Thiamine HCl 100 mg 11/04/19 09:00 11/15/19 10:12 Thiamine Hcl 100 Mg Tab PEG 12/04/19 08:59 Not Given QAM GRADY NPO Date Last Intake of Fluids: 11/15/19 Time Last Intake of Fluids: 00:00 Last Intake of Fluids Comment: PEG FEED DC AT MIDNIGHT Date Last Intake of Solids: 11/15/19 Time Last Intake of Solids: 00:00 Last Intake of Solids Comment: PEG FEED DC AT MIDNIGHT Past Medical History Medical History SHAGGY (acute kidney injury) Chronic back pain Electrolyte abnormality Clinically consistent with dehydration, NSAID use, uric acid nephropathy, and ATN. Tolerating IVF well. Creatinine continues to improve. Uremia also improving with management. Free water deficit persist (~4.5 L). Unable to tolerate medications or fluids by mouth. IVF switched to 1/4 NaCl + 20 KCl @ 200 ml/h yesterday evening. Urine appropriately alkaline. Noted UA crystals in urine yesterday AM. Serum UA level improving. Hypokalemia and hypophosphatemia noted. magnesium falling. K phos x 30 mmol IV ordered. Will continue to monitor labs twice daily and replace as needed. No adjustment to IVF infusion at this time. Hematemesis Hypertension Pulmonary nodule Thrombocytopenia Vomiting Exercise / Class Metabolic Activity III < 4 Walking/Shop/Light housework Past Surgical History Surgical History H/O right hemicolectomy Past Anesthesia History No Hx of Anesthesia Complications and No Family Hx of Anesthesia Complications History of PONV No Hx of PONV and No Hx of Motion Sickness Social History Smoking Status: Former smoker Smoking End Date: 2018 Hx Alcohol Use: No Hx Substance Use: No Physical Exam Vital Signs Last Vital Signs Temp 37.5 C 11/15/19 15:12 Pulse 85 11/15/19 15:12 Resp 18 11/15/19 15:12 BP 123/68 11/15/19 15:12 Pulse Ox 95 11/15/19 15:12 Constitutional + cachectic ENMT Mouth: + dentition abnormality, + poor dentition, + chipped teeth and + loose teeth Thyromental Distance: > or= 3.5 Finger Breadths Mallampati Class: II Neck normal visual inspection, trachea midline and + facial hair; neck extension not limited Respiratory normal respiratory effort Auscultation: lungs clear to auscultation bilaterally Cardiovascular Rate/Rhythm: regular rate and regular rhythm Heart Sounds: no murmur Vessels: no carotid bruit Musculoskeletal Spine: normal cervical ROM Extremities: extremities normal to inspection Neurologic moves all extremities Motor/Sensory: no sensory deficit Psychiatric Orientation: alert and oriented x 3 Testing Laboratory Results 11/15/19 03:34 11/15/19 03:34 PT 12.1 Seconds (9.0-12.0) H 10/26/19 06:05 INR 1.2 (0.9-1.1) H 10/26/19 06:05 APTT 29.5 Seconds (21.0-31.0) 10/20/19 19:06 Hemoglobin A1c 5.4 % (4.5-5.6) 10/20/19 23:57 Urine Color Yellow 11/04/19 03:18 Urine Appearance Clear (Clear) 11/04/19 03:18 Urine pH 5.0 (4.5-7.5) 11/04/19 03:18 Ur Specific Counce 1.017 (1.000-1.030) 11/04/19 03:18 Urine Protein Negative (Negative) 11/04/19 03:18 Urine Glucose (UA) Negative (Negative) 11/04/19 03:18 Urine Ketones Negative (Negative) 11/04/19 03:18 Urine Nitrite Negative (Negative) 11/04/19 03:18 Ur Leukocyte Esterase Negative (Negative) 11/04/19 03:18 Urine RBC >30 /hpf (0-4) H 10/21/19 03:55 Urine WBC 5-10 /hpf (0-5) H 10/21/19 03:55 Ur Epithelial Cells 5-10 /lpf (0-5) H 10/21/19 03:55 Blood Type AB Positive 11/11/19 11:03 Antibody Screen NEGATIVE 11/11/19 11:03 11/13/19 18:15 Gram Stain - Final Knee,Right Joint Fluid Culture - Final No growth 11/07/19 18:38 Aerobic Blood Culture - Final Blood No growth in Aerobic bottle after 5 days. Anaerobic Blood Culture - Final No growth in Anaerobic bottle after 5 days. 11/07/19 18:44 Aerobic Blood Culture - Final Blood No growth in Aerobic bottle after 5 days. Anaerobic Blood Culture - Final No growth in Anaerobic bottle after 5 days. 11/05/19 05:46 Aerobic Blood Culture - Final Blood Staph aureus MRSA Anaerobic Blood Culture - Final No growth in Anaerobic bottle after 5 days. 11/06/19 13:01 Aerobic Blood Culture - Final Blood No growth in Aerobic bottle after 5 days. Anaerobic Blood Culture - Final No growth in Anaerobic bottle after 5 days. 11/06/19 13:15 Aerobic Blood Culture - Final Blood No growth in Aerobic bottle after 5 days. Anaerobic Blood Culture - Final No growth in Anaerobic bottle after 5 days. 11/05/19 07:31 Aerobic Blood Culture - Final Blood No growth in Aerobic bottle after 5 days. Anaerobic Blood Culture - Final No growth in Anaerobic bottle after 5 days. 11/03/19 16:23 Aerobic Blood Culture - Final Blood Staph aureus MRSA Anaerobic Blood Culture - Final Staph aureus MRSA 11/03/19 16:19 Aerobic Blood Culture - Final Blood Staph aureus MRSA Anaerobic Blood Culture - Final Staph aureus MRSA 10/20/19 18:53 Aerobic Blood Culture - Final Blood No growth in Aerobic bottle after 5 days. Anaerobic Blood Culture - Final 10/20/19 19:06 Aerobic Blood Culture - Final Blood No growth in Aerobic bottle after 5 days. Anaerobic Blood Culture - Final No growth in Anaerobic bottle after 5 days. 11/15/19 11/15/19 11:49 06:04 POC Glucose 94 96
--- NOTE | 2019-11-15 17:26 | Operative Report ---
Post Operative Report Pre & Post Diagnosis Operation Date: 10/31/19 08:30 Pre-Op Diagnosis: AMS, HYPERNATREMIA Post-Op Diagnosis: AMS, HYPERNATREMIA Operation Date: 11/15/19 07:00 Pre-Op Diagnosis: Septic right knee, arthritis Post-Op Diagnosis: Septic right knee, arthritis I identified the patient and participated in the time-out.: Yes Procedure Operation Date: 10/31/19 08:30 Actual Procedures p EGD Gastric Tube Placement - Karl Puentes Operation Date: 11/15/19 07:00 Right knee arthroscopic irrigation and debridement and synovectomy. Surgeon Moreno Hernández MD Trouble Tracer Zane, PAC Estimated Blood Loss 5 Findings Consistent with Post-Op Diagnosis Fluids 400 cc. Specimens Right knee joint fluid sent for stat Gram stain and aerobic and anaerobic culture as well as cell count with a differential and crystal analysis. Drains Hemovac drain to the right knee. Anesthesia Type General Complications none Disposition Accompanied Patient To Recovery: Yes Disposition: Recovery Room Indications Patient is a 64-year-old gentleman with a host of medical issues who is been in the hospital for about 3 weeks now. He has a several week history of right knee pain discomfort and swelling. He was seen by my partner and had his knee aspirated. It was initially thought this may be gout but the crystal analysis was negative. Patient's been bacteremic with MRSA. He had inflammatory fluid count with increased polys. With a negative crystal analysis we had to assume this was infection. The patient is indicated for irrigation debridement. Description of Procedure Patient was taken to the operating identified and placed on the operating table supine position protectors were properly padded. Patient's been receiving IV antibiotics on the floor. A general anesthetic was implemented. Right thigh turn was then placed. The right lower extremity was then prepped and draped in usual sterile fashion. The right leg was elevated exsanguinated with use of an Esmarch and turns placed at 300 mmHg. Routine right knee arthroscopy was then performed the typical anterior medial and anterior lateral portals with the superior outflow portal. We did send the initial fluid from the aspiration from the superior lateral portal to for stat Gram stain aerobic anaerobic culture, and cell count with differential and crystal analysis. I then proceeded with a knee arthroscopy. We did a fairly minor synovectomy of the suprapatellar pouch medial lateral gutters as he did not have extensive synovitis. His compartments are fairly pristine. A fairly minimal arthritic change. The medial lateral menisci were intact. We irrigated with a total of 9 L of fluid. Once this was complete a large 15 [place] drain was placed out the superior lateral portal and attached to the Hemovac. This was then sewn in. The portal sites were then closed with 3-0 Prolene suture. The leg was then cleaned and dried and a sterile dressing composed Xeroform, 4 x 4's, sterile cast padding Josh bandage were applied. The tourniquet was then let down for turn time 30 minutes. Patient then brought out of general anesthesia and transferred to the recovery room in stable condition. The patient tolerated procedure well there were no complications. Markos Degroot, my physician restaurant assistant, was present for the entire procedure. His assistance was required for appropriate patient positioning, prepping and draping, surgical exposure, and manipulating the knee, closing the wound, and placement of the sterile bandage. I attest to the content of the Intraoperative Record and any orders documented therein. Any exceptions are noted below.
[2019-11-15] MEDS ORDERED: ATROPINE SULFATE 0.1 MG/ML 10ML SYR IV PRN (17:36)
[2019-11-15] MEDS ORDERED: LABETALOL HCL IV 5 MG/ML 20ML IV PRN (17:36)
[2019-11-15] MEDS ORDERED: PROMETHAZINE HCL 12.5 MG in SODIUM CHLORIDE 0.9% 50 ML IV PRN (17:36)
[2019-11-15] MEDS ORDERED: NALOXONE HCL 0.4 MG/1 ML VIAL/CARP IV PRN ×2 (17:36→18:26)
[2019-11-15] MEDS ORDERED: FLUMAZENIL 0.1 MG/1 ML 10 ML VIAL IV PRN (17:36)
[2019-11-15] MEDS ORDERED: ePHEDrine sulfate 50 MG/ML AMP IV PRN (17:36)
[2019-11-15] MEDS ORDERED: ONDANSETRON INJ 2 MG/ML 2 ML VIAL IV PRN ×2 (17:36→18:26)
[2019-11-15] MEDS: fentaNYL citrate 100 MCG/2 ML VIAL IV PRN ×4 (17:40→17:55)
[2019-11-15 17:58] LABS: Appearance Synovial Fluid CLOUDY; Color Synovial Fluid RED; RBC Synovial Fluid (A) 39000 /uL; Source Synovial Fluid KNEE; WBC Synovial Fluid (A) 13362 /ul (0-200)
--- NOTE | 2019-11-15 18:11 | Anesthesiology Progress Note ---
Date of Service November 15, 2019 Anesthesia Post Procedure Vital Signs Vital Signs: Temp Pulse Pulse Resp BP BP Pulse Ox 11/15/19 18:00 85 15 121/62 94 11/15/19 17:50 88 20 122/68 94 11/15/19 17:40 82 18 121/69 100 11/15/19 17:30 82 22 122/68 100 11/15/19 17:21 36 C L 87 16 118/67 100 11/15/19 15:12 37.5 C 85 18 123/68 95 11/15/19 15:08 37.5 C 93 H 18 129/68 129/68 97 11/15/19 07:02 37.0 C 86 16 114/62 95 11/14/19 23:10 36.9 C 90 15 115/62 94 Pain Intensity Posterior Neck: Pain Intensity: 0 Medial Abdomen: Pain Intensity: 0 Right Knee: Pain Intensity: 5 Transfer of Care Handoff Completed per policy Notes Mental Status: alert / awake / arousable Patient Amnestic to Procedure: Yes Nausea / Vomiting: adequately controlled Pain: adequately controlled Airway Patency, RR, SpO2: stable & adequate BP & HR: stable & adequate Hydration State: stable & adequate Anesthetic Complications: no major complications apparent
--- NOTE | 2019-11-15 18:18 | Hospitalist Progress Note ---
Date of Service November 15, 2019 Assessment & Plan (1) MRSA bacteremia: Cultured on 11/02 with rapid growth of 4/4 bottles with MRSA. No clear source other than right foot IV site which looked mildly red. PEG site looks clean without erythema or pus, however could have seeded bloodstream during this procedure I suppose. No other rashes or focal infection site except now with Right knee pain and swelling which may have been seeded from the bacteremia. - Blood cultures from 11/05 and 11/06 now without any growth. Appreciate ID consultation - Echo on 11/04 showed no vegetations. Could not pursue JASON due to esophageal issues. - Continue vancomycin -> Will need prolonged IV antibiotics; plan for now is 4 weeks from 11/06/2019 (End date: 12/03/2019) especially given history of right total hip arthroplasty -Orthopedics also recommends at least 4 weeks of IV antibiotics given the likely septic knee joint as below -needs weekly CBC, ESR, CRP,CMP while on Vanco, goal Vanco trough is 15-20 He has a PICC line in place in the right upper extremity since 11/10 (2) Anemia: Hgb was baseline ~9.0 - 10.0. Then trickled down to 7s and down to 6.8 on 11/10. No indication of bleeding. - Anemia labs indicate anemia of chronic disease worsened by phlebotomy while in the hospital. Ferritin was 1300 this admission secondary to inflammation,. B12 was normal, and he is on repletion also. - Ordered 1 unit PRBCs on 11/10 with patient consent. - On 11/11, hemoglobin bounced appropriately to 8.1. Hemoglobin today is stable at 7.5-hemodynamically stable and again no evidence of bleeding -Added ferrous sulfate elixir 325 mg per G-tube twice daily -follow CBC and transfuse if drops below 7 (3) Knee pain: Right knee pain x 1 week, then developed swelling and mild erythema on 11/12 Knee x-ray with likely bony infarct in the distal femur, otherwise no significant abnormalities Orthopedics aspirated the joint and it was cloudy yellow fluid, negative for crystals under microscope, Gram stain with WBCs but no organisms, culture pending WBC count 63,000, does not seem quite high enough for septic joint, however he has been on IV vancomycin for over a week COuld be MRSA infection at worst, versus gout although absence of crystals Consult Ortho appreciated-now status post washout of the knee with repeat cultures on 11/14 -Follow repeat synovial fluid analysis for crystals and Gram stain and culture -He has a drain in place in the knee which will be removed in approximately 2 days as per orthopedics (4) Thrombocytosis: Normal platelets until 11/07 as hemoglobin dropped lower.Most likely reactive from his anemia, now trending downward since PRBC transfusion -plts down to 515 today - Started ASA 81 mg on 11/10 for stroke prevention but have since discontinued as has gastric ulcer history on EGD from 08/2019 (5) Weight loss: Multifactorial - concern on subacute to working towards chronic malnutiriton - appearing fairly severe. - PEG placed on 10/[address] Puentes -> Tolerating tube feeds well. Stopped TPN. - Continue feeds titrating up to goal and vitamins. Discussed with dietitian- increasing rate slowly-currently at 30 mL's per hour -continue phosphate and potassium supplement (6) Dysphagia: Has had nausea and vomiting since August 2019. Initially thought to be due to gastric ulcer, but it never really improved, and he was brought back to the hospital multiple times for dehydration and hypernatremia. - EGD with Dr. Puentes showed lots of secretions and a tight lower esophageal sphincter. - Thought this could be achalasia. Will need manometry study at [place]; likely as outpatient. Perhaps he could get Botox injections versus other treatment for this -continue PEG tube feedings for now to improve nutritional status -He is to remain strictly n.p.o. (7) Altered mental status: Metabolic encephalopathy. He has had ongoing encephalopathic features over several admissions and many weeks - ?chronicity of baseline problem / ?ability to recover. - Thiamine was <6 on 10/21/2019. -> Aggressively replaced thiamine (Wernicke dosing) -> Now on daily through G- tube. - In discussions with PCP, more of an acute on chronic picture is worrisome - especially with significant weight loss preceding the current few months of acute illness. Seems to be significantly improved from previous, but remains forgetful at times -Watch for constipation-reports he had a bowel movement on 11/13 but none recorded since 11/08 (8) Acute kidney injury: Cr up to 9.7 present on admission (10/20/2019).Secondary to dehydration - Now down to 0.5 and stable, making urine (9) Thiamine deficiency: as above, severe continue replacement with daily thiamine through PEG tube (10) Hypokalemia: replace with IV potassium today follow BMP, Magnesium (11) Pulmonary nodule: 5mm nodule noted incidentally on imaging in [facility] Needs outpt follow up (12) History of gastric ulcer: gastric nonbleeding ulcers on EGD 08/2019 Hemoglobin slowly trending downward again but no evidence of melena continue prevacid through PEG tube dcd ASA (13) DVT prophylaxis: Held Lovenox in preparation for surgery, will restart likely tomorrow Dispo-continued stay, continue IV antibiotics and plan for discharge to rehab in the next 1 to 2 days Admission and Anticipated Discharge Date Admission Date: October 20, 2019 Subjective Pt seen in PACU after knee wash out. He reports some pain in knee but otherwise feeling well. RN reports prior to surgery he was doing well today. He denies chest pain or shortness of breath. I discussed the case with orthopedic surgery, Dr. Hernández. I also discussed his case with the dietitian. Review of Systems Review of Systems: All systems reviewed & are unremarkable except as noted in HPI & below Physical Exam Constitutional: + thin; no acute distress Eyes: + anicteric sclerae Neck: trachea midline, no thyromegaly Respiratory: normal respiratory effort, lungs clear to auscultation Cardiovascular: RRR, no murmur, no edema Chest (Breasts): Chest: normal inspection of chest Gastrointestinal (Abdomen): Inspection/Auscultation: + abdomen abnormal to inspection (PEG tube in place, no drainage or erythema surrounding) Musculoskeletal: Extremities: + extremities abnormal to inspection (Right lower extremity in Josh wrap not removed after surgery) Skin: no rashes, warm and dry Neurologic: moves all extremities and awake; no focal motor deficits Psychiatric: Orientation: alert, oriented x 3 and cooperative Speech: normal rate/rhythm/volume of speech Lymphatic: no lymphedema Results & Data Results & Data ([facility]) Vital Signs (Past 12 Hours) Vital Signs Temp Pulse Pulse Resp BP BP Pulse Ox 11/15/19 18:00 85 15 121/62 94 11/15/19 17:50 88 20 122/68 94 11/15/19 17:40 82 18 121/69 100 11/15/19 17:30 82 22 122/68 100 11/15/19 17:21 36 C L 87 16 118/67 100 11/15/19 15:12 37.5 C 85 18 123/68 95 11/15/19 15:08 37.5 C 93 H 18 129/68 129/68 97 11/15/19 07:02 37.0 C 86 16 114/62 95 Laboratory Results 11/15/19 11/15/19 11/15/19 Range/Units 16:47 14:58 14:58 WBC (4.8-10.8) K/uL RBC (4.7-6.1) M/uL Hgb (14.0-18.0) g/dL Hct (42-52) % MCV (80-100) fL MCH (25-34) pg MCHC (32-36) g/dL RDW Std Deviation (36.4-46.3) fL RDW Coeff of Kaleigh (11.5-14.5) % Plt Count (130-400) K/uL MPV (7.4-10.4) fL Immature Gran % (Auto) % Neut % (Auto) % Lymph % (Auto) % [place] % (Auto) % Eos % (Auto) % Baso % (Auto) % Neut # (Auto) (1.4-6.5) K/uL Lymph # (Auto) (1.2-3.4) K/uL [place] # (Auto) (0.11-0.59) K/uL Eos # (Auto) (0-0.5) K/uL Baso # (Auto) (0-0.2) K/uL Immature Gran # (Auto) (0.00-0.02) K/uL RBC Morphology ESR (0-14) mm/hr Sodium (136-145) mmol/L Potassium (3.5-5.1) mmol/L Chloride (98-107) mmol/L Carbon Dioxide (21-32) mmol/L Anion Gap (3-11) BUN (7-18) mg/dl Creatinine (0.6-1.4) mg/dl Est Cr Clr Drug Dosing ml/min Est GFR ( Amer) Est GFR (Non-Af Amer) BUN/Creatinine Ratio (10-20) Glucose (70-99) mg/dl POC Glucose (70-99) mg/dl Calcium (8.5-10.1) mg/dl Phosphorus (2.5-4.9) mg/dl Magnesium (1.8-2.4) mg/dl Total Bilirubin (0.2-1) mg/dl Direct Bilirubin (0-0.2) mg/dl AST (15-37) U/L ALT (12-78) U/L Alkaline Phosphatase (45-117) U/L C-Reactive Protein (0-0.29) mg/dl Total Protein (6.4-8.2) gm/dl Albumin (3.4-5.0) gm/dl Synovial Source KNEE Synovial Color RED Synovial Appearance CLOUDY Synovial WBC 80786 H (0-200) /ul Synovial RBC 44272 /uL Synovial Polynuclear % 93.0 % Synovial Mononuclear % 7.0 % Synovial Crystals Pending Vancomycin Trough (See Comment) mcg/ml COVID-19 Eval Order Covid19 [facility] SARS-CoV-2, RNA, NAAT NEGATIVE (NEGATIVE) 11/15/19 11/15/19 11/15/19 Range/Units 11:49 06:04 03:34 WBC (4.8-10.8) K/uL RBC (4.7-6.1) M/uL Hgb (14.0-18.0) g/dL Hct (42-52) % MCV (80-100) fL MCH (25-34) pg MCHC (32-36) g/dL RDW Std Deviation (36.4-46.3) fL RDW Coeff of Kaleigh (11.5-14.5) % Plt Count (130-400) K/uL MPV (7.4-10.4) fL Immature Gran % (Auto) % Neut % (Auto) % Lymph % (Auto) % [place] % (Auto) % Eos % (Auto) % Baso % (Auto) % Neut # (Auto) (1.4-6.5) K/uL Lymph # (Auto) (1.2-3.4) K/uL [place] # (Auto) (0.11-0.59) K/uL Eos # (Auto) (0-0.5) K/uL Baso # (Auto) (0-0.2) K/uL Immature Gran # (Auto) (0.00-0.02) K/uL RBC Morphology ESR (0-14) mm/hr Sodium 141 (136-145) mmol/L Potassium 3.2 L (3.5-5.1) mmol/L Chloride 109 H (98-107) mmol/L Carbon Dioxide 26 (21-32) mmol/L Anion Gap 6.0 (3-11) BUN 6 L (7-18) mg/dl Creatinine 0.38 L (0.6-1.4) mg/dl Est Cr Clr Drug Dosing 167.1 ml/min Est GFR ( Amer) 146.5 Est GFR (Non-Af Amer) 126.4 BUN/Creatinine Ratio 15.0 (10-20) Glucose 90 (70-99) mg/dl POC Glucose 94 96 (70-99) mg/dl Calcium 8.1 L (8.5-10.1) mg/dl Phosphorus 3.8 (2.5-4.9) mg/dl Magnesium 1.8 (1.8-2.4) mg/dl Total Bilirubin 0.3 (0.2-1) mg/dl Direct Bilirubin < 0.1 (0-0.2) mg/dl AST 9 L (15-37) U/L ALT 11 L (12-78) U/L Alkaline Phosphatase 60 (45-117) U/L C-Reactive Protein 10.90 H (0-0.29) mg/dl Total Protein 5.6 L (6.4-8.2) gm/dl Albumin 1.7 L (3.4-5.0) gm/dl Synovial Source Synovial Color Synovial Appearance Synovial WBC (0-200) /ul Synovial RBC /uL Synovial Polynuclear % % Synovial Mononuclear % % Synovial Crystals Vancomycin Trough (See Comment) mcg/ml COVID-19 Eval Order SARS-CoV-2, RNA, NAAT (NEGATIVE) 11/15/19 11/15/19 11/15/19 Range/Units 03:34 03:34 03:34 WBC 7.83 (4.8-10.8) K/uL RBC 2.46 L (4.7-6.1) M/uL Hgb 7.5 L (14.0-18.0) g/dL Hct 23.8 L (42-52) % MCV 96.7 (80-100) fL MCH 30.5 (25-34) pg MCHC 31.5 L (32-36) g/dL RDW Std Deviation 61.7 H (36.4-46.3) fL RDW Coeff of Kaeligh 17.4 H (11.5-14.5) % Plt Count 515 H (130-400) K/uL MPV 8.9 (7.4-10.4) fL Immature Gran % (Auto) 0.9 % Neut % (Auto) 68.8 % Lymph % (Auto) 19.2 % [place] % (Auto) 9.3 % Eos % (Auto) 1.4 % Baso % (Auto) 0.4 % Neut # (Auto) 5.39 (1.4-6.5) K/uL Lymph # (Auto) 1.50 (1.2-3.4) K/uL [place] # (Auto) 0.73 H (0.11-0.59) K/uL Eos # (Auto) 0.11 (0-0.5) K/uL Baso # (Auto) 0.03 (0-0.2) K/uL Immature Gran # (Auto) 0.07 H (0.00-0.02) K/uL RBC Morphology Unremarkable ESR 34 H (0-14) mm/hr Sodium (136-145) mmol/L Potassium (3.5-5.1) mmol/L Chloride (98-107) mmol/L Carbon Dioxide (21-32) mmol/L Anion Gap (3-11) BUN (7-18) mg/dl Creatinine (0.6-1.4) mg/dl Est Cr Clr Drug Dosing ml/min Est GFR ( Amer) Est GFR (Non-Af Amer) BUN/Creatinine Ratio (10-20) Glucose (70-99) mg/dl POC Glucose (70-99) mg/dl Calcium (8.5-10.1) mg/dl Phosphorus (2.5-4.9) mg/dl Magnesium (1.8-2.4) mg/dl Total Bilirubin (0.2-1) mg/dl Direct Bilirubin (0-0.2) mg/dl AST (15-37) U/L ALT (12-78) U/L Alkaline Phosphatase (45-117) U/L C-Reactive Protein (0-0.29) mg/dl Total Protein (6.4-8.2) gm/dl Albumin (3.4-5.0) gm/dl Synovial Source Synovial Color Synovial Appearance Synovial WBC (0-200) /ul Synovial RBC /uL Synovial Polynuclear % % Synovial Mononuclear % % Synovial Crystals Vancomycin Trough 14.8 (See Comment) mcg/ml COVID-19 Eval Order SARS-CoV-2, RNA, NAAT (NEGATIVE) 11/14/19 11/14/19 Range/Units 20:44 20:44 WBC (4.8-10.8) K/uL RBC (4.7-6.1) M/uL Hgb (14.0-18.0) g/dL Hct (42-52) % MCV (80-100) fL MCH (25-34) pg MCHC (32-36) g/dL RDW Std Deviation (36.4-46.3) fL RDW Coeff of [place] (11.5-14.5) % Plt Count (130-400) K/uL MPV (7.4-10.4) fL Immature Gran % (Auto) % Neut % (Auto) % Lymph % (Auto) % [place] % (Auto) % Eos % (Auto) % Baso % (Auto) % Neut # (Auto) (1.4-6.5) K/uL Lymph # (Auto) (1.2-3.4) K/uL [place] # (Auto) (0.11-0.59) K/uL Eos # (Auto) (0-0.5) K/uL Baso # (Auto) (0-0.2) K/uL Immature Gran # (Auto) (0.00-0.02) K/uL RBC Morphology ESR 43 H (0-14) mm/hr Sodium (136-145) mmol/L Potassium (3.5-5.1) mmol/L Chloride (98-107) mmol/L Carbon Dioxide (21-32) mmol/L Anion Gap (3-11) BUN (7-18) mg/dl Creatinine (0.6-1.4) mg/dl Est Cr Clr Drug Dosing ml/min Est GFR ( Amer) Est GFR (Non-Af Amer) BUN/Creatinine Ratio (10-20) Glucose (70-99) mg/dl POC Glucose (70-99) mg/dl Calcium (8.5-10.1) mg/dl Phosphorus (2.5-4.9) mg/dl Magnesium (1.8-2.4) mg/dl Total Bilirubin (0.2-1) mg/dl Direct Bilirubin (0-0.2) mg/dl AST (15-37) U/L ALT (12-78) U/L Alkaline Phosphatase (45-117) U/L C-Reactive Protein 12.00 H (0-0.29) mg/dl Total Protein (6.4-8.2) gm/dl Albumin (3.4-5.0) gm/dl Synovial Source Synovial Color Synovial Appearance Synovial WBC (0-200) /ul Synovial RBC /uL Synovial Polynuclear % % Synovial Mononuclear % % Synovial Crystals Vancomycin Trough (See Comment) mcg/ml COVID-19 Eval Order SARS-CoV-2, RNA, NAAT (NEGATIVE) PG Care Time/CCT Total # of Minutes Spent Total Time Spent with Patient: Total time spent is greater than 50% in coordination of care (as documented) at patient's floor/unit and/or counseling patient: Coding Level of Care Code 37528 Subseq Hosp Care Lvl 3 Diagnoses MRSA bacteremia R78.81; B95.62 Anemia D64.9 Knee pain M25.569 Thrombocytosis D47.3 Weight loss R63.4 Dysphagia R13.10 Altered mental status R40.1 Altered mental status type: stupor Acute kidney injury N17.9 Thiamine deficiency E51.9 Hypokalemia E87.6 Pulmonary nodule R91.1 History of gastric ulcer Z87.19 DVT prophylaxis Z29.9 (1) Altered mental status Altered mental status type: stupor Qualified Code(s): R40.1 - Stupor
[2019-11-15] MEDS ORDERED: METOCLOPRAMIDE HCL INJ 5 MG/ML 2 ML VIAL IV PRN (18:26)
[2019-11-15] MEDS ORDERED: MAGNESIUM HYDROXIDE SUSP 30 ML UDC PO PRN (18:26)
[2019-11-15] MEDS ORDERED: bisacodyL 10 MG SUPP PR PRN (18:26)
[2019-11-15] MEDS ORDERED: traMADol HCL 50 MG TABLET PO PRN (18:26)
[2019-11-15] MEDS: HYDROmorphone INJ 0.5 MG/0.5 ML SYR IV PRN (19:13)
[2019-11-15] MEDS: SODIUM CHLORIDE 0.9% 1000ML 1,000 ML IV SCH (19:13)
[2019-11-15] MEDS: PEPTAMEN 1.5 CAL 1,000 ML BAG GT SCH (20:53)
[2019-11-15] MEDS: DOCUSATE SODIUM 100 MG CAP PO SCH (20:54)
[2019-11-15] MEDS ORDERED: ACETAMINOPHEN 500 MG TAB ONE (20:59)
[2019-11-15] MEDS: ACETAMINOPHEN 500 MG TAB PO SCH (21:00)
[2019-11-15] MEDS: SENNA 8.6 MG TAB PO SCH (23:11)
[2019-11-16] MEDS: VANCOMYCIN HCL 750 MG in SODIUM CHLORIDE 0.9% 250 ML IV SCH ×2 (03:13→17:09)
[2019-11-16] MEDS: SODIUM CHLORIDE 0.9% 1000ML 1,000 ML IV SCH (03:13)
[2019-11-16] MEDS: HYDROmorphone INJ 0.5 MG/0.5 ML SYR IV PRN ×4 (03:13→20:32)
[2019-11-16] MEDS: ACETAMINOPHEN 500 MG TAB PO SCH ×2 (05:07→13:40)
[2019-11-16 06:36] LABS: Basophils # (auto) 0.03 K/uL (0-0.2); Basophils % (auto) 0.4 %; Eosinophils # (auto) 0.08 K/uL (0-0.5); Hematocrit (blood only) 23.4 % (42-52); Hemoglobin 7.1 g/dL (14.0-18.0); Immature Granulocytes # (auto) 0.06 K/uL (0.00-0.02); Immature Granulocytes % (auto) 0.8 %; Lymphocytes % (auto) 16.5 %; Mean Corpuscular Hgb Conc 30.3 g/dL (32-36); Mean Corpuscular Volume 98.7 fL (80-100); Monocytes # (auto) 0.57 K/uL (0.11-0.59); Monocytes % (auto) 7.2 %; Neutrophils # (auto) 5.86 K/uL (1.4-6.5); Neutrophils % (auto) 74.1 %; Platelet Count 505 K/uL (130-400); RDW Coefficient of Variation 17.1 % (11.5-14.5); RDW Standard Deviation 61.9 fL (36.4-46.3); Red Blood Count 2.37 M/uL (4.7-6.1)
[2019-11-16 06:56] LABS: Albumin Level 1.6 gm/dl (3.4-5.0); BUN Creatinine Ratio 20.7 (10-20); Calcium 8.1 mg/dl (8.5-10.1); Creatinine Clr Calc Pharmacy 155.2 ml/min; Est GFR (Non-African American) 125.1; Magnesium 1.7 mg/dl (1.8-2.4); Potassium 3.2 mmol/L (3.5-5.1)
[2019-11-16 07:07] LABS: Albumin Globulin Ratio 0.4 (0.9-2); Bilirubin,Total 0.2 mg/dl (0.2-1); Globulin 3.7 gm/dl (2.5-4.0); Phosphorus 3.7 mg/dl (2.5-4.9); Total Protein 5.3 gm/dl (6.4-8.2)
[2019-11-16 07:10] LABS: RBC Morphology Unremarkable
[2019-11-16] MEDS: MULTI VIT W/MINERALS LIQUID 15 ML UDP PEG SCH (07:50)
[2019-11-16] MEDS: CYANOCOBALAMIN 500 MCG TABLET (VITAMIN B-12) PO SCH (07:51)
[2019-11-16] MEDS: DOCUSATE SODIUM 100 MG CAP PO SCH (07:51)
[2019-11-16] MEDS: MAGNESIUM OXIDE 400 MG TAB PO SCH ×2 (07:52→20:33)
[2019-11-16] MEDS: FOLIC ACID 1 MG TAB PO SCH (07:52)
[2019-11-16] MEDS: THIAMINE HCL 100 MG TAB PEG SCH (07:53)
[2019-11-16] MEDS: LANSOPRAZOLE 15 MG SOLTAB GT SCH (07:54)
[2019-11-16] MEDS: POT PHOSPHATE MONOBASIC W/ SOD TAB GT SCH ×2 (07:54→20:33)
[2019-11-16] MEDS: FERROUS SULFATE 325 MG/7.4 ML UDP PO SCH ×2 (07:57→17:09)
[2019-11-16] MEDS: PEPTAMEN 1.5 CAL 1,000 ML BAG GT SCH (08:02)
--- NOTE | 2019-11-16 08:22 | Progress Notes ---
DATE: 11/16/2019 SUBJECTIVE: A 64-year-old gentleman postop day 1 from an arthroscopic irrigation and debridement of a supposed infected knee. He is doing pretty well this morning. He is complaining of some mild to moderate pain. No new complaints. He is asking for some pain medicine. OBJECTIVE: VITAL SIGNS: Temperature 37.0. Vital signs stable. GENERAL: Shows a pleasant elderly male. He is lying in bed, looks comfortable. EXTREMITIES: Leg is well aligned. The dressing is clean, dry, and intact. Drain is in place with minimal drainage. He can dorsiflex and plantarflex his foot appropriately. LABORATORY DATA: Hemoglobin 7.1. Hematocrit 23.4. Electrolytes relatively stable. He continues to have hypokalemia. Creatinine is low. ASSESSMENT: A 64-year-old male with multiple medical comorbidities, postoperative day 1 from an arthroscopic irrigation and debridement, doing okay orthopedically. He has got multiple other medical issues. We have to assume that he has got an infected knee based on his knee aspirate. Knee exam today looks good. PLAN: 1. DVT prophylaxis including thigh-high TEDs, SCDs, and anticoagulation as per the medicine service. He can resume his Lovenox 24 hours postop from the orthopedic standpoint. 2. PT/OT. He can weightbear as tolerated. 3. Pain control. We will leave that up to the medicine doctors. It should not be terribly painful from this knee condition. 4. He is going to need 4-6 weeks of IV antibiotics likely. We are going to leave the drain in today and likely take it out tomorrow. Once it drains out, he is okay for discharge at any time medically stable. Any orthopedic questions can be directed at [phone].
[2019-11-16] MEDS ORDERED: MULTIVITAMIN TAB PO SCH (09:00)
[2019-11-16] MEDS ORDERED: SODIUM CHLORIDE 0.9% 250 ML IV PRN (09:46)
[2019-11-16] MEDS ORDERED: MAGNESIUM SULFATE / D5W 1 GM/100 ML BAG IV ONE (10:30)
[2019-11-16] MEDS: POTASSIUM CHLORIDE / WTR 20 MEQ/100 ML PLCT IV SCH ×2 (11:06→17:08)
--- NOTE | 2019-11-16 15:17 | Hospitalist Progress Note ---
Date of Service November 16, 2019 Assessment & Plan (1) MRSA bacteremia: Cultured on 11/02 with rapid growth of 4/4 bottles with MRSA. No clear source other than right foot IV site which looked mildly red. PEG site looks clean without erythema or pus, however could have seeded bloodstream during this procedure I suppose. No other rashes or focal infection site except now with Right knee pain and swelling which may have been seeded from the bacteremia. - Blood cultures from 11/05 and 11/06 negative for growth Appreciate ID consultation - Echo on 11/04 showed no vegetations. Could not pursue JASON due to esophageal issues. - Continue vancomycin -> Will need prolonged IV antibiotics; plan for now is 4 weeks from 11/06/2019 (End date: 12/03/2019) especially given history of right total hip arthroplasty/indwelling hardware and right septic arthritis of the knee -Orthopedics also recommends at least 4 weeks of IV antibiotics given the likely septic knee joint as below -needs weekly CBC, ESR, CRP,CMP while on Vanco, goal Vanco trough is 15-20 He has a PICC line in place in the right upper extremity since 11/10 (2) Anemia: Hgb was baseline ~9.0 - 10.0. Then trickled down to 7s and down to 6.8 on 11/10. No indication of bleeding. - Anemia labs indicate anemia of chronic disease worsened by phlebotomy while in the hospital. Ferritin was 1300 this admission secondary to inflammation,. B12 was normal, and he is on repletion also. - Ordered 1 unit PRBCs on 11/10 with patient consent. - On 11/11, hemoglobin bounced appropriately to 8.1. Hemoglobin continues to dwindle down today to 7.1 and has some bleeding in the drain from the right knee. Blood pressure is a little soft at 100 systolic -Transfuse 1 unit PRBCs on 11/15 -Added ferrous sulfate elixir 325 mg per G-tube twice daily -follow CBC in the morning and once weekly after that at rehab (3) Knee pain: Right knee pain x 1 week, then developed swelling and mild erythema on 11/12 Knee x-ray with likely bony infarct in the distal femur, otherwise no significant abnormalities Orthopedics aspirated the joint and it was cloudy yellow fluid, negative for crystals under microscope, Gram stain with WBCs but no organisms, culture no growth to date WBC count 63,000, does not seem quite high enough for septic joint, however he has been on IV vancomycin for over a week at the time of aspiration COuld be MRSA infection at worst, versus gout although absence of crystals Consult Ortho appreciated-now status post washout of the knee with repeat cultures on 11/14 -repeat synovial fluid analysis for crystals negative and Gram stain with WBCs, culture pending -He has a drain in place in the knee which will be removed hopefully tomorrow as per orthopedics after which she can be discharged (4) Thrombocytosis: Normal platelets until 11/07 as hemoglobin dropped lower.Most likely reactive from his anemia, now trending downward since PRBC transfusion -plts down to 505 today - Started ASA 81 mg on 11/10 for stroke prevention but have since discontinued as has gastric ulcer history on EGD from 08/2019 (5) Weight loss: Multifactorial - concern on subacute to working towards chronic malnutiriton - appearing fairly severe. - PEG placed on 10/[address] Puentes -> Tolerating tube feeds well. Stopped TPN. He did have some refeeding syndrome initially and tube feeds were held, but have since been restarted - Continue feeds titrating up to goal and vitamins. Discussed with dietitian- increasing rate slowly-currently at 30 mL's per hour and then hopefully will go up to 35 mL's per hour tomorrow -continue phosphate and potassium supplement (6) Dysphagia: Has had nausea and vomiting since August 2019. Initially thought to be due to gastric ulcer, but it never really improved, and he was brought back to the hospital multiple times for dehydration and hypernatremia. - EGD with Dr. Puentes showed lots of secretions and a tight lower esophageal sphincter. - Thought this could be achalasia. Will need manometry study at [place]; likely as outpatient. Perhaps he could get Botox injections versus other treatment for this -continue PEG tube feedings for now to improve nutritional status -He is to remain strictly n.p.o. (7) Altered mental status: Metabolic encephalopathy. He has had ongoing encephalopathic features over several admissions and many weeks - ?chronicity of baseline problem / ?ability to recover. - Thiamine was <6 on 10/21/2019. -> Aggressively replaced thiamine (Wernicke dosing) -> Now on daily through G- tube. - In discussions with PCP, more of an acute on chronic picture is worrisome - es pecially with significant weight loss preceding the current few months of acute illness. Seems to be significantly improved from previous, but remains forgetful at times -Watch for constipation-reports he had a bowel movement on 11/13 (8) Acute kidney injury: Cr up to 9.7 present on admission (10/20/2019).Secondary to dehydration - Now down to 0.5 and stable, making urine (9) Thiamine deficiency: as above, severe continue replacement with daily thiamine through PEG tube (10) Hypokalemia: replace with IV potassium again, replace IV magnesium 1 g today follow BMP, Magnesium in the morning and 2-3 times per week at rehab (11) Pulmonary nodule: 5mm nodule noted incidentally on imaging in [facility] Needs outpt follow up (12) History of gastric ulcer: gastric nonbleeding ulcers on EGD 08/2019 Hemoglobin slowly trending downward again but no evidence of melena continue prevacid through PEG tube dcd ASA (13) DVT prophylaxis: Held Lovenox in preparation for surgery, will restart this evening which is 24 hours status post surgery as per orthopedics Dispo-continued stay, continue IV antibiotics and plan for discharge to rehab hopefully tomorrow if drain comes out of the knee and hemoglobin remained stable Admission and Anticipated Discharge Date Admission Date: October 20, 2019 Subjective Patient had some pain in the knee which is now relieved with Tylenol. He denies chest pain or shortness of breath, no abdominal pain. He did not move his bowels yet today. He is anxious to leave the hospital and was upset when told that he might be at the rehab for at least 2 weeks. I discussed his care with his at his request. Blood pressures were little bit low this morning and hemoglobin continue to trend downward. He does have some bloody drainage from the knee drain. He received 1 unit of PRBCs today Review of Systems Review of Systems: All systems reviewed & are unremarkable except as noted in HPI & below Physical Exam Constitutional: + thin; no acute distress Eyes: + anicteric sclerae Neck: trachea midline, no thyromegaly Respiratory: normal respiratory effort, lungs clear to auscultation Cardiovascular: RRR, no murmur, no edema Chest (Breasts): Chest: normal inspection of chest Gastrointestinal (Abdomen): normal bowel sounds, soft, nontender, no hepatosplenomegaly Inspection/Auscultation: + abdomen abnormal to inspection (PEG tube in place, no drainage or erythema surrounding) Musculoskeletal: Extremities: + extremities abnormal to inspection (Right lower extremity in Josh wrap not removed after surgery with drain in place with serous fluid and with some blood in the drain) Skin: no rashes, warm and dry Neurologic: moves all extremities and awake; no focal motor deficits Psychiatric: Orientation: alert, oriented x 3 and cooperative Speech: normal rate/rhythm/volume of speech Lymphatic: no lymphedema Results & Data Results & Data ([facility]) Vital Signs (Past 12 Hours) Vital Signs Temp Pulse Pulse Resp BP BP Pulse Ox 11/16/19 14:45 37.1 C 90 16 127/70 94 11/16/19 13:44 37.1 C 90 20 118/67 95 11/16/19 13:11 37.2 C 85 20 105/59 L 95 11/16/19 12:41 36.8 C 93 H 20 106/59 L 95 11/16/19 12:26 37.2 C 88 18 105/56 L 985 H 11/16/19 12:09 36.7 C 83 18 119/69 11/16/19 07:20 37.0 C 77 18 102/58 L 97 11/16/19 04:17 36.7 C 84 18 106/59 L 97 Laboratory Results 11/16/19 11/16/19 11/16/19 Range/Units 11:33 10:21 06:04 WBC (4.8-10.8) K/uL RBC (4.7-6.1) M/uL Hgb (14.0-18.0) g/dL Hct (42-52) % MCV (80-100) fL MCH (25-34) pg MCHC (32-36) g/dL RDW Std Deviation (36.4-46.3) fL RDW Coeff of Kaleigh (11.5-14.5) % Plt Count (130-400) K/uL MPV (7.4-10.4) fL Immature Gran % (Auto) % Neut % (Auto) % Lymph % (Auto) % [place] % (Auto) % Eos % (Auto) % Baso % (Auto) % Neut # (Auto) (1.4-6.5) K/uL Lymph # (Auto) (1.2-3.4) K/uL [place] # (Auto) (0.11-0.59) K/uL Eos # (Auto) (0-0.5) K/uL Baso # (Auto) (0-0.2) K/uL Immature Gran # (Auto) (0.00-0.02) K/uL RBC Morphology Sodium 143 (136-145) mmol/L Potassium 3.2 L (3.5-5.1) mmol/L Chloride 110 H (98-107) mmol/L Carbon Dioxide 26 (21-32) mmol/L Anion Gap 7.0 (3-11) BUN 8 (7-18) mg/dl Creatinine 0.39 L (0.6-1.4) mg/dl Est Cr Clr Drug Dosing 155.2 ml/min Est GFR ( Amer) 145.0 Est GFR (Non-Af Amer) 125.1 BUN/Creatinine Ratio 20.7 H (10-20) Glucose 100 H (70-99) mg/dl POC Glucose 116 H (70-99) mg/dl Calcium 8.1 L (8.5-10.1) mg/dl Phosphorus 3.7 (2.5-4.9) mg/dl Magnesium 1.7 L (1.8-2.4) mg/dl Total Bilirubin 0.2 (0.2-1) mg/dl AST 21 (15-37) U/L ALT 18 (12-78) U/L Alkaline Phosphatase 125 H D (45-117) U/L Total Protein 5.3 L (6.4-8.2) gm/dl Albumin 1.6 L (3.4-5.0) gm/dl Globulin 3.7 (2.5-4.0) gm/dl Albumin/Globulin Ratio 0.4 L (0.9-2) Synovial Source Synovial Color Synovial Appearance Synovial WBC (0-200) /ul Synovial RBC /uL Synovial Polynuclear % % Synovial Mononuclear % % Synovial Crystals Blood Type AB Positive Antibody Screen NEGATIVE Crossmatch See Detail 11/16/19 11/16/19 11/15/19 Range/Units 06:04 02:26 20:33 WBC 7.90 (4.8-10.8) K/uL RBC 2.37 L (4.7-6.1) M/uL Hgb 7.1 L (14.0-18.0) g/dL Hct 23.4 L (42-52) % MCV 98.7 (80-100) fL MCH 30.0 (25-34) pg MCHC 30.3 L (32-36) g/dL RDW Std Deviation 61.9 H (36.4-46.3) fL RDW Coeff of Kaleigh 17.1 H (11.5-14.5) % Plt Count 505 H (130-400) K/uL MPV 9.0 (7.4-10.4) fL Immature Gran % (Auto) 0.8 % Neut % (Auto) 74.1 % Lymph % (Auto) 16.5 % [place] % (Auto) 7.2 % Eos % (Auto) 1.0 % Baso % (Auto) 0.4 % Neut # (Auto) 5.86 (1.4-6.5) K/uL Lymph # (Auto) 1.30 (1.2-3.4) K/uL [place] # (Auto) 0.57 (0.11-0.59) K/uL Eos # (Auto) 0.08 (0-0.5) K/uL Baso # (Auto) 0.03 (0-0.2) K/uL Immature Gran # (Auto) 0.06 H (0.00-0.02) K/uL RBC Morphology Unremarkable Sodium (136-145) mmol/L Potassium (3.5-5.1) mmol/L Chloride (98-107) mmol/L Carbon Dioxide (21-32) mmol/L Anion Gap (3-11) BUN (7-18) mg/dl Creatinine (0.6-1.4) mg/dl Est Cr Clr Drug Dosing ml/min Est GFR ( Amer) Est GFR (Non-Af Amer) BUN/Creatinine Ratio (10-20) Glucose (70-99) mg/dl POC Glucose 105 H 92 (70-99) mg/dl Calcium (8.5-10.1) mg/dl Phosphorus (2.5-4.9) mg/dl Magnesium (1.8-2.4) mg/dl Total Bilirubin (0.2-1) mg/dl AST (15-37) U/L ALT (12-78) U/L Alkaline Phosphatase (45-117) U/L Total Protein (6.4-8.2) gm/dl Albumin (3.4-5.0) gm/dl Globulin (2.5-4.0) gm/dl Albumin/Globulin Ratio (0.9-2) Synovial Source Synovial Color Synovial Appearance Synovial WBC (0-200) /ul Synovial RBC /uL Synovial Polynuclear % % Synovial Mononuclear % % Synovial Crystals Blood Type Antibody Screen Crossmatch 11/15/19 Range/Units 16:47 WBC (4.8-10.8) K/uL RBC (4.7-6.1) M/uL Hgb (14.0-18.0) g/dL Hct (42-52) % MCV (80-100) fL MCH (25-34) pg MCHC (32-36) g/dL RDW Std Deviation (36.4-46.3) fL RDW Coeff of Kaleigh (11.5-14.5) % Plt Count (130-400) K/uL MPV (7.4-10.4) fL Immature Gran % (Auto) % Neut % (Auto) % Lymph % (Auto) % [place] % (Auto) % Eos % (Auto) % Baso % (Auto) % Neut # (Auto) (1.4-6.5) K/uL Lymph # (Auto) (1.2-3.4) K/uL [place] # (Auto) (0.11-0.59) K/uL Eos # (Auto) (0-0.5) K/uL Baso # (Auto) (0-0.2) K/uL Immature Gran # (Auto) (0.00-0.02) K/uL RBC Morphology Sodium (136-145) mmol/L Potassium (3.5-5.1) mmol/L Chloride (98-107) mmol/L Carbon Dioxide (21-32) mmol/L Anion Gap (3-11) BUN (7-18) mg/dl Creatinine (0.6-1.4) mg/dl Est Cr Clr Drug Dosing ml/min Est GFR ( Amer) Est GFR (Non-Af Amer) BUN/Creatinine Ratio (10-20) Glucose (70-99) mg/dl POC Glucose (70-99) mg/dl Calcium (8.5-10.1) mg/dl Phosphorus (2.5-4.9) mg/dl Magnesium (1.8-2.4) mg/dl Total Bilirubin (0.2-1) mg/dl AST (15-37) U/L ALT (12-78) U/L Alkaline Phosphatase (45-117) U/L Total Protein (6.4-8.2) gm/dl Albumin (3.4-5.0) gm/dl Globulin (2.5-4.0) gm/dl Albumin/Globulin Ratio (0.9-2) Synovial Source KNEE Synovial Color RED Synovial Appearance CLOUDY Synovial WBC 13032 H (0-200) /ul Synovial RBC 98742 /uL Synovial Polynuclear % 93.0 % Synovial Mononuclear % 7.0 % Synovial Crystals Blood Type Antibody Screen Crossmatch Lyme disease PCR from synovial fluid-pending Synovial fluid aspirate-culture no growth to date, repeat culture pending, crystals negative PG Care Time/CCT Total # of Minutes Spent Total Time Spent with Patient: Total time spent is greater than 50% in coordination of care (as documented) at patient's floor/unit and/or counseling patient: Coding Level of Care Code 35834 Subseq Hosp Care Lvl 3 Diagnoses MRSA bacteremia R78.81; B95.62 Anemia D64.9 Knee pain M25.569 Thrombocytosis D47.3 Weight loss R63.4 Dysphagia R13.10 Altered mental status R40.1 Altered mental status type: stupor Acute kidney injury N17.9 Thiamine deficiency E51.9 Hypokalemia E87.6 Pulmonary nodule R91.1 History of gastric ulcer Z87.19 DVT prophylaxis Z29.9 (1) Altered mental status Altered mental status type: stupor Qualified Code(s): R40.1 - Stupor
[2019-11-16] MEDS: ACETAMINOPHEN SOLN 1000MG/31.25ML UDC GT SCH ×4 (17:09→23:40)
[2019-11-16] MEDS: DOCUSATE SODIUM SYRUP 100 MG/10 ML UDC PO SCH (20:33)
[2019-11-16] MEDS: SENNA 8.6 MG TAB PO SCH (20:34)
[2019-11-16 23:02] LABS: Lyme DNA PCR CSF or Synovial Not detected (Not Detected); Lyme DNA Source Synovial Fluid
[2019-11-17] MEDS: HYDROmorphone INJ 0.5 MG/0.5 ML SYR IV PRN ×3 (03:16→16:57)
[2019-11-17] MEDS ORDERED: VANCOMYCIN TROUGH ONE (03:30)
[2019-11-17 03:49] LABS: Basophils # (auto) 0.03 K/uL (0-0.2); Basophils % (auto) 0.4 %; Eosinophils # (auto) 0.11 K/uL (0-0.5); Eosinophils % (auto) 1.5 %; Hematocrit (blood only) 27.5 % (42-52); Hemoglobin 8.7 g/dL (14.0-18.0); Immature Granulocytes # (auto) 0.03 K/uL (0.00-0.02); Immature Granulocytes % (auto) 0.4 %; Lymphocytes # (auto) 1.19 K/uL (1.2-3.4); Lymphocytes % (auto) 16.2 %; Mean Corpuscular Hemoglobin 30.4 pg (25-34); Mean Corpuscular Hgb Conc 31.6 g/dL (32-36); Mean Corpuscular Volume 96.2 fL (80-100); Monocytes # (auto) 0.41 K/uL (0.11-0.59); Monocytes % (auto) 5.6 %; Neutrophils # (auto) 5.59 K/uL (1.4-6.5); Neutrophils % (auto) 75.9 %; Platelet Count 459 K/uL (130-400); RDW Coefficient of Variation 16.7 % (11.5-14.5); RDW Standard Deviation 58.5 fL (36.4-46.3); Red Blood Count 2.86 M/uL (4.7-6.1); White Blood Count 7.36 K/uL (4.8-10.8)
[2019-11-17 04:06] LABS: Albumin Level 1.6 gm/dl (3.4-5.0); BUN Creatinine Ratio 13.1 (10-20); Creatinine Clr Calc Pharmacy 137.6 ml/min; Est GFR (African American) 137.9; Magnesium 1.7 mg/dl (1.8-2.4); Potassium 3.5 mmol/L (3.5-5.1)
[2019-11-17 04:09] LABS: Albumin Globulin Ratio 0.4 (0.9-2); Bilirubin,Total 0.2 mg/dl (0.2-1); Globulin 3.8 gm/dl (2.5-4.0); Phosphorus 3.4 mg/dl (2.5-4.9); Total Protein 5.4 gm/dl (6.4-8.2)
[2019-11-17] MEDS: VANCOMYCIN HCL 750 MG in SODIUM CHLORIDE 0.9% 250 ML IV SCH (04:44)
[2019-11-17] MEDS: FERROUS SULFATE 325 MG/7.4 ML UDP PO SCH ×2 (07:56→16:15)
[2019-11-17] MEDS: THIAMINE HCL 100 MG TAB PEG SCH (07:56)
[2019-11-17] MEDS: MULTI VIT W/MINERALS LIQUID 15 ML UDP PEG SCH (07:57)
[2019-11-17] MEDS: CYANOCOBALAMIN 500 MCG TABLET (VITAMIN B-12) PO SCH (07:58)
[2019-11-17] MEDS: MAGNESIUM OXIDE 400 MG TAB PO SCH ×2 (07:59→20:27)
[2019-11-17] MEDS: FOLIC ACID 1 MG TAB PO SCH (07:59)
[2019-11-17] MEDS: POT PHOSPHATE MONOBASIC W/ SOD TAB GT SCH ×2 (08:00→20:25)
[2019-11-17] MEDS: ACETAMINOPHEN SOLN 1000MG/31.25ML UDC GT SCH ×3 (08:00→23:49)
[2019-11-17] MEDS: DOCUSATE SODIUM SYRUP 100 MG/10 ML UDC PO SCH ×2 (08:01→20:22)
[2019-11-17] MEDS: LANSOPRAZOLE 15 MG SOLTAB GT SCH (08:02)
--- NOTE | 2019-11-17 08:10 | Pharmacy Report ---
Pharmacy Abx Dose Short Note - Date of Service November 17, 2019 - Assessment & Plan Assessment 64 year old M receiving IV Vancomycin for treatment of MRSA bacteremia Day # 14 of antimicrobial therapy. Plan Vancomycin * Trough level came back slightly sub-therapeutic at ~14.6 mcg/ml (goal 15-20 mcg/ml). Ideally, with MRSA bacteremia would like a trough level closer to 20 mcg/ml * Will increase Vanco dose from 750mg IV Q12hrs to 1,000mg IV Q12hrs. * Renal function remains stable. * Patient needs extended IV antibiotics given hx of right total hip arthroplasty. Would recommend checking trough outpatient 1-2x weekly to ensure level remains 15-20 mcg/ml. Also following renal function to ensure stable
--- NOTE | 2019-11-17 08:51 | Progress Notes ---
DATE: 11/17/2019 SUBJECTIVE: A 64-year-old gentleman postop day 2 from an arthroscopic irrigation and debridement and synovectomy of a presumed septic knee. He is doing pretty well. He has got some moderate knee and leg pain. No new complaints. OBJECTIVE: VITAL SIGNS: Temperature 36.8. Vital signs stable. GENERAL: Shows a pleasant elderly male. He is sitting up in bed, watching TV, looks comfortable. EXTREMITIES: Examination of the right leg reveals it to be well aligned. Dressing was removed. Fairly mild swelling. Minimal drainage. He can do a straight leg raise. He is neurologically intact. LABORATORY ANALYSIS: The synovial fluid cell count was 13,000, which was much improved from the previous aspiration. Crystal analysis was once again negative. Culture results are no growth to date. ASSESSMENT: A 64-year-old gentleman postop day 2 from an arthroscopic irrigation and debridement, synovectomy of apparent septic knee. Orthopedically, he is doing well. We are going to remove his drain today. He will need anywhere from 4-6 weeks of IV antibiotics. We hope he is orthopedically okay for discharge any time medically stable. We need to see him back about 2 weeks from surgery date. He can weightbear as tolerated. PLAN: 1. DVT prophylaxis including thigh-high TEDs and SCDs and we would recommend a baby aspirin twice a day. Definitive anticoagulation as per the medicine service. 2. PT/OT. He can weightbear as tolerated, right knee: No particular limitations from the medical standpoint. 3. Medical management as per the medicine service. 4. Disposition: He is orthopedically okay for discharge any time medically stable. We can see him back 2 weeks from the surgery. Any orthopedic questions can be directed at [phone].
[2019-11-17] MEDS ORDERED: MAGNESIUM SULFATE / D5W 1 GM/100 ML BAG IV ONE (10:00)
[2019-11-17] MEDS: VANCOMYCIN HCL 1,000 MG in SODIUM CHLORIDE 0.9% 250 ML IV SCH (16:11)
[2019-11-17] MEDS: PEPTAMEN 1.5 CAL 1,000 ML BAG GT SCH (16:51)
--- NOTE | 2019-11-17 18:14 | Hospitalist Progress Note ---
Date of Service November 17, 2019 Assessment & Plan (1) MRSA bacteremia: Cultured on 11/02 with rapid growth of 4/4 bottles with MRSA. No clear source other than right foot IV site which looked mildly red. PEG site looks clean without erythema or pus, however could have seeded bloodstream during this procedure I suppose. No other rashes or focal infection site except now with Right knee pain and swelling which may have been seeded from the bacteremia. - Blood cultures from 11/05 and 11/06 negative for growth Appreciate ID consultation - Echo on 11/04 showed no vegetations. Could not pursue JASON due to esophageal issues. - Continue vancomycin -> Will need prolonged IV antibiotics; plan for now is 4 weeks from 11/06/2019 (End date: 12/03/2019) especially given history of right total hip arthroplasty/indwelling hardware and right septic arthritis of the knee -Orthopedics also recommends at least 4 weeks of IV antibiotics given the likely septic knee joint as below -needs weekly CBC, ESR, CRP,CMP while on Vanco, goal Vanco trough is 15-20 He has a PICC line in place in the right upper extremity since 11/10 (2) Anemia: Hgb was baseline ~9.0 - 10.0. Then trickled down to 7s and down to 6.8 on 11/10. No indication of bleeding. - Anemia labs indicate anemia of chronic disease worsened by phlebotomy while in the hospital. Ferritin was 1300 this admission secondary to inflammation,. B12 was normal, and he is on repletion also. - Ordered 1 unit PRBCs on 11/10 with patient consent. - On 11/11, hemoglobin bounced appropriately to 8.1. Hemoglobin continued to dwindle down again to 7.1 on 11/15 and had some bleeding in the drain from the right knee. Blood pressure was a little soft at 100 systolic -Transfused 1 unit PRBCs on 11/15 Hemoglobin now up appropriately again to 8.7 on 11/16 -Added ferrous sulfate elixir 325 mg per G-tube twice daily -follow CBC in the morning and once weekly after that at rehab (3) Knee pain: Right knee pain x 1 week, then developed swelling and mild erythema on 11/12 Knee x-ray with likely bony infarct in the distal femur, otherwise no significant abnormalities Orthopedics aspirated the joint and it was cloudy yellow fluid, negative for crystals under microscope, Gram stain with WBCs but no organisms, culture no growth to date WBC count 63,000, does not seem quite high enough for septic joint, however he has been on IV vancomycin for over a week at the time of aspiration COuld be MRSA infection at worst, versus gout although absence of crystals Consult Ortho appreciated-now status post washout of the knee with repeat cult ures on 11/14 -repeat synovial fluid analysis for crystals negative and Gram stain with WBCs, culture pending but no growth to date -drain removed today from the knee -Needs follow-up with orthopedic surgeon, Dr. Ayan Hernández, in 2 weeks around 11/28 -He can weight-bear as tolerated on the right lower extremity -He recommends either aspirin or Lovenox for DVT prophylaxis-will choose Lovenox given that he had gastric ulcers (4) Thrombocytosis: Normal platelets until 11/07 as hemoglobin dropped lower.Most likely reactive from his anemia, now trending downward since PRBC transfusion -plts down to 459 today - Started ASA 81 mg on 11/10 for stroke prevention but have since discontinued as has gastric ulcer history on EGD from 08/2019 (5) Weight loss: Multifactorial - concern on subacute to working towards chronic malnutrition - appearing fairly severe. - PEG placed on 10/[address] Puentes -> Tolerating tube feeds well. Stopped TPN. He did have some refeeding syndrome initially and tube feeds were held, but have since been restarted and he is doing well, electrolytes remain stable and improved - Continue feeds titrating up to goal and vitamins. Discussed with dietitian-increasing rate slowly-increased rate today to 35 mL's per hour and then hopefully will go up to 45 mL's per hour tomorrow if electr olytes stable -continue phosphate and potassium supplement -Continue to follow CMP, magnesium, phosphorus, and prealbumin in the morning -Hopefully will be able to transition to bolus feeds prior to leaving the rehab hospital to go to home which would be easier for home feeding (6) Dysphagia: Has had nausea and vomiting since August 2019. Initially thought to be due to gastric ulcer, but it never really improved, and he was brought back to the hospital multiple times for dehydration and hypernatremia. - EGD with Dr. Puentes showed lots of secretions and a tight lower esophageal sphincter. - Thought this could be achalasia. Will need manometry study at [place]; likely as outpatient. Perhaps he could get Botox injections versus other treatment for this -continue PEG tube feedings for now to improve nutritional status -He is to remain strictly n.p.o. (7) Altered mental status: Metabolic encephalopathy. He has had ongoing encephalopathic features over several admissions and many weeks - ?chronicity of baseline problem / ?ability to recover. - Thiamine was <6 on 10/21/2019. -> Aggressively replaced thiamine (Wernicke dosing) -> Now on daily through G- tube. - In discussions with PCP, more of an acute on chronic picture is worrisome - especially with significant weight loss preceding the current few months of acute illness. Seems to be significantly improved from previous, but remains forgetful at times -Watch for constipation-reports he had a bowel movement on 11/13 but none is documented since 11/08 (8) Acute kidney injury: Cr up to 9.7 present on admission (10/20/2019).Secondary to dehydration - Now down to 0.5 and stable, making urine (9) Thiamine deficiency: as above, severe continue replacement with daily thiamine through PEG tube (10) Hypokalemia: Replaced and resolved follow BMP, Magnesium in the morning and 2-3 times per week at rehab (11) Pulmonary nodule: 5mm nodule noted incidentally on imaging in [facility] Needs outpt follow up (12) History of gastric ulcer: gastric nonbleeding ulcers on EGD 08/2019 Hemoglobin slowly trended downward again but no evidence of melena continue prevacid through PEG tube dcd ASA (13) DVT prophylaxis: Held Lovenox in preparation for surgery, will restart today and would continue for at least 2 weeks given knee surgery Dispo-medically stable for discharge today, however awaiting insurance authorization Admission and Anticipated Discharge Date Admission Date: October 20, 2019 Anticipated date of discharge: 11/18/19 Subjective Patient upset today and still does not understand why he needs to go to rehab and states that there is no way sustaining more than a few days. I talked him through all of his conditions and with his at the bedside, we finally got him calmed down. He claimed that no one ever told him about the problems with his esophagus, but his reminded him that multiple doctors and she herself had told him on numerous occasions. He reports some pain in the knee that is improved with pain medicine. Denies chest pain or shortness of breath. He reports that he would like to eat a jelly donut and thinks that he would have no problems doing so. He did get up and work with physical therapy today. Review of Systems Review of Systems: All systems reviewed & are unremarkable except as noted in HPI & below Physical Exam Constitutional: + thin; no acute distress Eyes: + anicteric sclerae Neck: trachea midline, no thyromegaly Respiratory: normal respiratory effort, lungs clear to auscultation Cardiovascular: RRR, no murmur, no edema Chest (Breasts): Chest: normal inspection of chest Gastrointestinal (Abdomen): normal bowel sounds, soft, nontender, no hepatosplenomegaly Inspection/Auscultation: + abdomen abnormal to inspection (PEG tube in place, no drainage or erythema surrounding) Musculoskeletal: Extremities: + extremities abnormal to inspection (Right lower extremity in Josh wrap not removed after surgery with drain in place with serous fluid and with some blood in the drain) Skin: no rashes, warm and dry Neurologic: moves all extremities and awake; no focal motor deficits Psychiatric: Orientation: alert, oriented x 3 and cooperative Speech: normal rate/rhythm/volume of speech Lymphatic: no lymphedema Results & Data Results & Data ([facility]) Vital Signs (Past 12 Hours) Vital Signs Temp Pulse Pulse Resp BP BP Pulse Ox 11/17/19 15:26 36.8 C 87 17 129/74 96 11/17/19 11:37 36.6 C 90 18 137/68 96 11/17/19 06:33 36.8 C 66 16 106/58 L 97 Laboratory Results 11/17/19 11/17/19 11/17/19 Range/Units 11:32 03:32 03:32 WBC 7.36 (4.8-10.8) K/uL RBC 2.86 L (4.7-6.1) M/uL Hgb 8.7 L (14.0-18.0) g/dL Hct 27.5 L (42-52) % MCV 96.2 (80-100) fL MCH 30.4 (25-34) pg MCHC 31.6 L (32-36) g/dL RDW Std Deviation 58.5 H (36.4-46.3) fL RDW Coeff of Kaleigh 16.7 H (11.5-14.5) % Plt Count 459 H (130-400) K/uL MPV 9.0 (7.4-10.4) fL Immature Gran % (Auto) 0.4 % Neut % (Auto) 75.9 % Lymph % (Auto) 16.2 % [place] % (Auto) 5.6 % Eos % (Auto) 1.5 % Baso % (Auto) 0.4 % Neut # (Auto) 5.59 (1.4-6.5) K/uL Lymph # (Auto) 1.19 L (1.2-3.4) K/uL [place] # (Auto) 0.41 (0.11-0.59) K/uL Eos # (Auto) 0.11 (0-0.5) K/uL Baso # (Auto) 0.03 (0-0.2) K/uL Immature Gran # (Auto) 0.03 H (0.00-0.02) K/uL Sodium (136-145) mmol/L Potassium (3.5-5.1) mmol/L Chloride (98-107) mmol/L Carbon Dioxide (21-32) mmol/L Anion Gap (3-11) BUN (7-18) mg/dl Creatinine (0.6-1.4) mg/dl Est Cr Clr Drug Dosing ml/min Est GFR ( Amer) Est GFR (Non-Af Amer) BUN/Creatinine Ratio (10-20) Glucose (70-99) mg/dl POC Glucose 113 H (70-99) mg/dl Calcium (8.5-10.1) mg/dl Phosphorus (2.5-4.9) mg/dl Magnesium (1.8-2.4) mg/dl Total Bilirubin (0.2-1) mg/dl AST (15-37) U/L ALT (12-78) U/L Alkaline Phosphatase (45-117) U/L Total Protein (6.4-8.2) gm/dl Albumin (3.4-5.0) gm/dl Globulin (2.5-4.0) gm/dl Albumin/Globulin Ratio (0.9-2) Fld Lyme DNA (PCR) (Not Detected) Vancomycin Trough 14.6 (See Comment) mcg/ml Lyme Specimen Source 09/11/20 09/07/20 Range/Units 03:32 18:15 WBC (4.8-10.8) K/uL RBC (4.7-6.1) M/uL Hgb (14.0-18.0) g/dL Hct (42-52) % MCV (80-100) fL MCH (25-34) pg MCHC (32-36) g/dL RDW Std Deviation (36.4-46.3) fL RDW Coeff of Kaleigh (11.5-14.5) % Plt Count (130-400) K/uL MPV (7.4-10.4) fL Immature Gran % (Auto) % Neut % (Auto) % Lymph % (Auto) % [place] % (Auto) % Eos % (Auto) % Baso % (Auto) % Neut # (Auto) (1.4-6.5) K/uL Lymph # (Auto) (1.2-3.4) K/uL [place] # (Auto) (0.11-0.59) K/uL Eos # (Auto) (0-0.5) K/uL Baso # (Auto) (0-0.2) K/uL Immature Gran # (Auto) (0.00-0.02) K/uL Sodium 144 (136-145) mmol/L Potassium 3.5 (3.5-5.1) mmol/L Chloride 112 H (98-107) mmol/L Carbon Dioxide 25 (21-32) mmol/L Anion Gap 7.0 (3-11) BUN 6 L (7-18) mg/dl Creatinine 0.44 L (0.6-1.4) mg/dl Est Cr Clr Drug Dosing 137.6 ml/min Est GFR ( Amer) 137.9 Est GFR (Non-Af Amer) 119.0 BUN/Creatinine Ratio 13.1 (10-20) Glucose 92 (70-99) mg/dl POC Glucose (70-99) mg/dl Calcium 8.0 L (8.5-10.1) mg/dl Phosphorus 3.4 (2.5-4.9) mg/dl Magnesium 1.7 L (1.8-2.4) mg/dl Total Bilirubin 0.2 (0.2-1) mg/dl AST 13 L (15-37) U/L ALT 15 (12-78) U/L Alkaline Phosphatase 124 H (45-117) U/L Total Protein 5.4 L (6.4-8.2) gm/dl Albumin 1.6 L (3.4-5.0) gm/dl Globulin 3.8 (2.5-4.0) gm/dl Albumin/Globulin Ratio 0.4 L (0.9-2) Fld Lyme DNA (PCR) Not detected (Not Detected) Vancomycin Trough (See Comment) mcg/ml Lyme Specimen Source Synovial Fluid PG Care Time/CCT Total # of Minutes Spent Total Time Spent with Patient: Total time spent is greater than 50% in coordination of care (as documented) at patient's floor/unit and/or counseling patient: Coding Level of Care Code 11018 Subseq Hosp Care Lvl 2 Diagnoses MRSA bacteremia R78.81; B95.62 Anemia D64.9 Knee pain M25.569 Thrombocytosis D47.3 Weight loss R63.4 Dysphagia R13.10 Altered mental status R40.1 Altered mental status type: stupor Acute kidney injury N17.9 Thiamine deficiency E51.9 Hypokalemia E87.6 Pulmonary nodule R91.1 History of gastric ulcer Z87.19 DVT prophylaxis Z29.9 (1) Altered mental status Altered mental status type: stupor Qualified Code(s): R40.1 - Stupor
[2019-11-17] MEDS: POLYETHYLENE (MIRALAX) 17 GM PACK PEG SCH (18:48)
[2019-11-17] MEDS: ENOXAPARIN INJ 40 MG/0.4 ML SYR SQ SCH (18:49)
[2019-11-17] MEDS: SENNA 8.6 MG TAB PO SCH (20:24)
[2019-11-18] MEDS: VANCOMYCIN HCL 1,000 MG in SODIUM CHLORIDE 0.9% 250 ML IV SCH ×2 (04:07→15:40)
[2019-11-18 06:39] LABS: Basophils # (auto) 0.04 K/uL (0-0.2); Basophils % (auto) 0.5 %; Eosinophils # (auto) 0.09 K/uL (0-0.5); Hematocrit (blood only) 26.8 % (42-52); Hemoglobin 8.6 g/dL (14.0-18.0); Immature Granulocytes # (auto) 0.03 K/uL (0.00-0.02); Immature Granulocytes % (auto) 0.3 %; Lymphocytes # (auto) 1.27 K/uL (1.2-3.4); Lymphocytes % (auto) 14.7 %; Mean Corpuscular Hemoglobin 30.7 pg (25-34); Mean Corpuscular Hgb Conc 32.1 g/dL (32-36); Mean Corpuscular Volume 95.7 fL (80-100); Mean Platelet Volume 9.9 fL (7.4-10.4); Monocytes # (auto) 0.61 K/uL (0.11-0.59); Monocytes % (auto) 7.1 %; Neutrophils # (auto) 6.59 K/uL (1.4-6.5); Neutrophils % (auto) 76.4 %; Platelet Count 503 K/uL (130-400); RDW Coefficient of Variation 16.7 % (11.5-14.5); RDW Standard Deviation 58.8 fL (36.4-46.3); White Blood Count 8.63 K/uL (4.8-10.8)
[2019-11-18 07:08] LABS: Albumin Level 1.7 gm/dl (3.4-5.0); Est GFR (African American) 146.5; Est GFR (Non-African American) 126.4; Magnesium 1.7 mg/dl (1.8-2.4)
[2019-11-18 07:14] LABS: Albumin Globulin Ratio 0.4 (0.9-2); Bilirubin,Total 0.2 mg/dl (0.2-1); Globulin 3.9 gm/dl (2.5-4.0); Prealbumin 8.9 mg/dl (20-40); Total Protein 5.6 gm/dl (6.4-8.2)
[2019-11-18] MEDS: HYDROmorphone INJ 0.5 MG/0.5 ML SYR IV PRN (07:51)
[2019-11-18] MEDS: FERROUS SULFATE 325 MG/7.4 ML UDP PO SCH ×2 (07:57→15:40)
[2019-11-18] MEDS: POLYETHYLENE (MIRALAX) 17 GM PACK PEG SCH (07:58)
[2019-11-18] MEDS: FOLIC ACID 1 MG TAB PO SCH (07:58)
[2019-11-18] MEDS: DOCUSATE SODIUM SYRUP 100 MG/10 ML UDC PO SCH ×2 (07:58→21:27)
[2019-11-18] MEDS: MULTI VIT W/MINERALS LIQUID 15 ML UDP PEG SCH (07:58)
[2019-11-18] MEDS: THIAMINE HCL 100 MG TAB PEG SCH (07:59)
[2019-11-18] MEDS: CYANOCOBALAMIN 500 MCG TABLET (VITAMIN B-12) PO SCH (07:59)
[2019-11-18] MEDS: POT PHOSPHATE MONOBASIC W/ SOD TAB GT SCH ×2 (07:59→21:29)
[2019-11-18] MEDS: LANSOPRAZOLE 15 MG SOLTAB GT SCH (07:59)
[2019-11-18] MEDS: MAGNESIUM OXIDE 400 MG TAB PO SCH ×2 (08:00→21:29)
[2019-11-18] MEDS: ACETAMINOPHEN SOLN 1000MG/31.25ML UDC GT SCH ×2 (08:00→15:39)
[2019-11-18] MEDS: POTASSIUM CHLORIDE / WTR 20 MEQ/100 ML PLCT IV SCH ×2 (10:52→12:44)
[2019-11-18] MEDS: MAGNESIUM SULFATE / D5W 1 GM/100 ML BAG IV SCH ×2 (10:52→12:44)
[2019-11-18] MEDS: POTASSIUM CHLORIDE 20 MEQ/15 ML UDC PO SCH (12:45)
[2019-11-18] MEDS: ENOXAPARIN INJ 40 MG/0.4 ML SYR SQ SCH (18:26)
--- NOTE | 2019-11-18 18:51 | Hospitalist Progress Note ---
Date of Service November 18, 2019 Assessment & Plan (1) MRSA bacteremia: Cultured on 11/02 with rapid growth of 4/4 bottles with MRSA. No clear source other than right foot IV site which looked mildly red. PEG site looks clean without erythema or pus, however could have seeded bloodstream during this procedure I suppose. No other rashes or focal infection site except now with Right knee pain and swelling which may have been seeded from the bacteremia. - Blood cultures from 11/05 and 11/06 negative for growth Appreciate ID consultation - Echo on 11/04 showed no vegetations. Could not pursue JASON due to esophageal issues. - Continue vancomycin -> Will need prolonged IV antibiotics; plan for now is 4 weeks from 11/06/2019 (End date: 12/03/2019) especially given history of right total hip arthroplasty/indwelling hardware and right septic arthritis of the knee -Orthopedics also recommends at least 4 weeks of IV antibiotics given the likely septic knee joint as below -needs weekly CBC, ESR, CRP,CMP while on Vanco, goal Vanco trough is 15-20 He has a PICC line in place in the right upper extremity since 11/10 (2) Anemia: Hgb was baseline ~9.0 - 10.0. Then trickled down to 7s and down to 6.8 on 11/10. No indication of bleeding. - Anemia labs indicate anemia of chronic disease worsened by phlebotomy while in the hospital. Ferritin was 1300 this admission secondary to inflammation,. B12 was normal, and he is on repletion also. - Ordered 1 unit PRBCs on 11/10 with patient consent. - On 11/11, hemoglobin bounced appropriately to 8.1. Hemoglobin continued to dwindle down again to 7.1 on 11/15 and had some bleeding in the drain from the right knee. Blood pressure was a little soft at 100 systolic -Transfused 1 unit PRBCs on 11/15 Hemoglobin now up appropriately again to 8.6 -Added ferrous sulfate elixir 325 mg per G-tube twice daily -follow CBC in the morning and once weekly after that at rehab (3) Knee pain: Right knee pain x 1 week, then developed swelling and mild erythema on 11/12 Knee x-ray with likely bony infarct in the distal femur, otherwise no significant abnormalities Orthopedics aspirated the joint and it was cloudy yellow fluid, negative for crystals under microscope, Gram stain with WBCs but no organisms, culture no growth to date WBC count 63,000, does not seem quite high enough for septic joint, however he has been on IV vancomycin for over a week at the time of aspiration COuld be MRSA infection at worst, versus gout although absence of crystals Consult Ortho appreciated-now status post washout of the knee with repeat cultures on 11/14 -repeat synovial fluid analysis for crystals negative and Gram stain with WBCs, culture pending but no growth to date -drain removed now from the knee -Needs follow-up with orthopedic surgeon, Dr. Ayan Hernández, in 2 weeks around 11/28 -He can weight-bear as tolerated on the right lower extremity -Orthopedics recommends either aspirin or Lovenox for DVT prophylaxis-will choose Lovenox given that he had gastric ulcers (4) Thrombocytosis: Normal platelets until 11/07 as hemoglobin dropped lower.Most likely reactive from his anemia, now trending downward since PRBC transfusion -plts down to 500 today - Started ASA 81 mg on 11/10 for stroke prevention but have since discontinued as has gastric ulcer history on EGD from 08/2019 (5) Weight loss: Multifactorial - concern on subacute to working towards chronic malnutrition - appearing fairly severe. - PEG placed on 10/[address] Puentes -> Tolerating tube feeds well. Stopped TPN. He did have some refeeding syndrome initially and tube feeds were held, but have since been restarted and he is doing well, electrolytes remain stable and improved - Continue feeds titrating up to goal and vitamins. Discussed with dietitian-increasing rate slowly-continue rate today at 35 mL's per hour and then hopefully will go up to 45 mL's per hour tomorrow if electro lytes stable-continue to have hypokalemia and hypomagnesemia today -continue phosphate and potassium supplement, add on potassium chloride elixir 20 mEq once daily Prealbumin very low at 8 -Continue to follow CMP, magnesium, phosphorus in the morning -Hopefully will be able to transition to bolus feeds prior to leaving the rehab hospital to go to home which would be easier for home feeding (6) Dysphagia: Has had nausea and vomiting since August 2019. Initially thought to be due to gastric ulcer, but it never really improved, and he was brought back to the hospital multiple times for dehydration and hypernatremia. He then had a cholecystectomy which still did not improve his symptoms - EGD with Dr. Puentes showed lots of secretions in the esophagus and a tight lower esophageal sphincter. - Thought this could be achalasia. Will need manometry study at [place]; likely as outpatient. Perhaps he could get Botox injections versus other treatment for this -continue PEG tube feedings for now to improve nutritional status -He is to remain strictly n.p.o. despite his repeated requests to try to eat regular food to prevent aspiration (7) Altered mental status: Metabolic encephalopathy. He has had ongoing encephalopathic features over several admissions and many weeks - ?chronicity of baseline problem / ?ability to recover. Much improved overall, but continues to have short-term memory deficits - Thiamine was <6 on 10/21/2019. -> Aggressively replaced thiamine (Wernicke dosing) -> Now on daily through G- tube. - In discussions with PCP, more of an acute on chronic picture is worrisome - especially with significant weight loss preceding the current few months of acute illness. Watch for constipation-finally had a bowel movement on 11/17 (8) Acute kidney injury: Cr up to 9.7 present on admission (10/20/2019).Secondary to dehydration - Now down to 0.38 and stable, making urine (9) Thiamine deficiency: as above, severe continue replacement with daily thiamine through PEG tube (10) Hypokalemia: Replaced again today for potassium of 3.0 Also replacing magnesium with 2 g IV follow BMP, Magnesium in the morning and 2-3 times per week at rehab (11) Pulmonary nodule: 5mm nodule noted incidentally on imaging in [facility] Needs outpt follow up (12) History of gastric ulcer: gastric nonbleeding ulcers on EGD 08/2019 Hemoglobin slowly trended downward again but no evidence of melena continue prevacid through PEG tube Avoid NSAIDs and aspirin (13) DVT prophylaxis: Continue SQ Lovenox and would continue for at least 2 weeks given knee surgery Dispo-medically stable for discharge today, however awaiting insurance authorization Admission and Anticipated Discharge Date Admission Date: October 20, 2019 Anticipated date of discharge: 11/19/19 Subjective Patient still does not understand why he cannot eat. He continues to maintain that no one has explained to him that he has a problem with his esophagus. Denies chest pain or shortness of breath. Knee pain is improved. He is moving his bowels today. Making urine. Still awaiting rehab placement Review of Systems Review of Systems: All systems reviewed & are unremarkable except as noted in HPI & below Physical Exam Constitutional: + thin; no acute distress Eyes: + anicteric sclerae Neck: trachea midline, no thyromegaly Respiratory: normal respiratory effort, lungs clear to auscultation Cardiovascular: RRR, no murmur, no edema Chest (Breasts): Chest: normal inspection of chest Gastrointestinal (Abdomen): normal bowel sounds, soft, nontender, no hepatosplenomegaly Inspection/Auscultation: + abdomen abnormal to inspection (PEG tube in place, no drainage or erythema surrounding) Musculoskeletal: Extremities: + extremities abnormal to inspection (Right lower extremity in Josh wrap not removed, drain has been removed) Skin: no rashes, warm and dry Neurologic: moves all extremities and awake; no focal motor deficits Psychiatric: Orientation: alert, oriented x 3 and cooperative Speech: normal rate/rhythm/volume of speech Affect: + irritable affect Mood: + anxious mood Cognition: + recent memory not intact Lymphatic: no lymphedema Results & Data Results & Data ([facility]) Vital Signs (Past 12 Hours) Vital Signs Temp Pulse Resp BP Pulse Ox 11/18/19 14:00 37.5 C 92 H 18 126/77 97 11/18/19 08:00 37.0 C 75 18 130/73 96 Laboratory Results 11/18/19 11/18/19 11/18/19 Range/Units 18:21 11:57 06:09 WBC (4.8-10.8) K/uL RBC (4.7-6.1) M/uL Hgb (14.0-18.0) g/dL Hct (42-52) % MCV (80-100) fL MCH (25-34) pg MCHC (32-36) g/dL RDW Std Deviation (36.4-46.3) fL RDW Coeff of Kaleigh (11.5-14.5) % Plt Count (130-400) K/uL MPV (7.4-10.4) fL Immature Gran % (Auto) % Neut % (Auto) % Lymph % (Auto) % [place] % (Auto) % Eos % (Auto) % Baso % (Auto) % Neut # (Auto) (1.4-6.5) K/uL Lymph # (Auto) (1.2-3.4) K/uL [place] # (Auto) (0.11-0.59) K/uL Eos # (Auto) (0-0.5) K/uL Baso # (Auto) (0-0.2) K/uL Immature Gran # (Auto) (0.00-0.02) K/uL Sodium (136-145) mmol/L Potassium (3.5-5.1) mmol/L Chloride (98-107) mmol/L Carbon Dioxide (21-32) mmol/L Anion Gap (3-11) BUN (7-18) mg/dl Creatinine (0.6-1.4) mg/dl Est Cr Clr Drug Dosing ml/min Est GFR ( Amer) Est GFR (Non-Af Amer) BUN/Creatinine Ratio (10-20) Glucose (70-99) mg/dl POC Glucose 101 H 101 H 111 H (70-99) mg/dl Calcium (8.5-10.1) mg/dl Phosphorus (2.5-4.9) mg/dl Magnesium (1.8-2.4) mg/dl Total Bilirubin (0.2-1) mg/dl AST (15-37) U/L ALT (12-78) U/L Alkaline Phosphatase (45-117) U/L Total Protein (6.4-8.2) gm/dl Albumin (3.4-5.0) gm/dl Globulin (2.5-4.0) gm/dl Albumin/Globulin Ratio (0.9-2) Prealbumin (20-40) mg/dl 11/18/19 11/18/19 11/18/19 Range/Units 05:04 05:04 00:07 WBC 8.63 (4.8-10.8) K/uL RBC 2.80 L (4.7-6.1) M/uL Hgb 8.6 L (14.0-18.0) g/dL Hct 26.8 L (42-52) % MCV 95.7 (80-100) fL MCH 30.7 (25-34) pg MCHC 32.1 (32-36) g/dL RDW Std Deviation 58.8 H (36.4-46.3) fL RDW Coeff of Kaleigh 16.7 H (11.5-14.5) % Plt Count 503 H (130-400) K/uL MPV 9.9 (7.4-10.4) fL Immature Gran % (Auto) 0.3 % Neut % (Auto) 76.4 % Lymph % (Auto) 14.7 % [place] % (Auto) 7.1 % Eos % (Auto) 1.0 % Baso % (Auto) 0.5 % Neut # (Auto) 6.59 H (1.4-6.5) K/uL Lymph # (Auto) 1.27 (1.2-3.4) K/uL [place] # (Auto) 0.61 H (0.11-0.59) K/uL Eos # (Auto) 0.09 (0-0.5) K/uL Baso # (Auto) 0.04 (0-0.2) K/uL Immature Gran # (Auto) 0.03 H (0.00-0.02) K/uL Sodium 145 (136-145) mmol/L Potassium 3.0 L (3.5-5.1) mmol/L Chloride 110 H (98-107) mmol/L Carbon Dioxide 28 (21-32) mmol/L Anion Gap 7.0 (3-11) BUN 5 L (7-18) mg/dl Creatinine 0.38 L (0.6-1.4) mg/dl Est Cr Clr Drug Dosing 169.0 ml/min Est GFR ( Amer) 146.5 Est GFR (Non-Af Amer) 126.4 BUN/Creatinine Ratio 12.0 (10-20) Glucose 85 (70-99) mg/dl POC Glucose 103 H (70-99) mg/dl Calcium 8.0 L (8.5-10.1) mg/dl Phosphorus 3.0 (2.5-4.9) mg/dl Magnesium 1.7 L (1.8-2.4) mg/dl Total Bilirubin 0.2 (0.2-1) mg/dl AST 15 (15-37) U/L ALT 13 (12-78) U/L Alkaline Phosphatase 136 H (45-117) U/L Total Protein 5.6 L (6.4-8.2) gm/dl Albumin 1.7 L (3.4-5.0) gm/dl Globulin 3.9 (2.5-4.0) gm/dl Albumin/Globulin Ratio 0.4 L (0.9-2) Prealbumin 8.9 L (20-40) mg/dl PG Care Time/CCT Total # of Minutes Spent Total Time Spent with Patient: Total time spent is greater than 50% in coordination of care (as documented) at patient's floor/unit and/or counseling patient: Coding Level of Care Code 33749 Subseq Hosp Care Lvl 3 Diagnoses MRSA bacteremia R78.81; B95.62 Anemia D64.9 Knee pain M25.569 Thrombocytosis D47.3 Weight loss R63.4 Dysphagia R13.10 Altered mental status R40.1 Altered mental status type: stupor Acute kidney injury N17.9 Thiamine deficiency E51.9 Hypokalemia E87.6 Pulmonary nodule R91.1 History of gastric ulcer Z87.19 DVT prophylaxis Z29.9 (1) Altered mental status Altered mental status type: stupor Qualified Code(s): R40.1 - Stupor
[2019-11-18] MEDS ORDERED: SENNOSIDES 8.8 MG/5 ML UDC PO SCH (21:00)
[2019-11-18] MEDS: PEPTAMEN 1.5 CAL 1,000 ML BAG GT SCH (21:44)
[2019-11-19] MEDS: ACETAMINOPHEN SOLN 1000MG/31.25ML UDC GT SCH ×4 (00:42→23:40)
[2019-11-19] MEDS: VANCOMYCIN HCL 1,000 MG in SODIUM CHLORIDE 0.9% 250 ML IV SCH ×2 (04:45→16:19)
[2019-11-19 05:57] LABS: Basophils # (auto) 0.02 K/uL (0-0.2); Basophils % (auto) 0.3 %; Eosinophils # (auto) 0.07 K/uL (0-0.5); Eosinophils % (auto) 0.9 %; Hematocrit (blood only) 27.2 % (42-52); Hemoglobin 8.4 g/dL (14.0-18.0); Immature Granulocytes # (auto) 0.02 K/uL (0.00-0.02); Immature Granulocytes % (auto) 0.3 %; Lymphocytes # (auto) 1.39 K/uL (1.2-3.4); Mean Corpuscular Hemoglobin 30.1 pg (25-34); Mean Corpuscular Hgb Conc 30.9 g/dL (32-36); Mean Corpuscular Volume 97.5 fL (80-100); Mean Platelet Volume 9.6 fL (7.4-10.4); Monocytes # (auto) 0.64 K/uL (0.11-0.59); Monocytes % (auto) 8.3 %; Neutrophils % (auto) 72.2 %; Platelet Count 463 K/uL (130-400); RDW Coefficient of Variation 16.9 % (11.5-14.5); RDW Standard Deviation 59.9 fL (36.4-46.3); Red Blood Count 2.79 M/uL (4.7-6.1); White Blood Count 7.74 K/uL (4.8-10.8)
[2019-11-19 06:35] LABS: Alanine Aminotransferase 12 U/L (12-78); Albumin Level 1.7 gm/dl (3.4-5.0); Aspartate Aminotransferase 10 U/L (15-37); BUN Creatinine Ratio 14.7 (10-20); Blood Urea Nitrogen 5 mg/dl (7-18); Calcium 8.2 mg/dl (8.5-10.1); Carbon Dioxide 28 mmol/L (21-32); Chloride 107 mmol/L (98-107); Creatinine Clr Calc Pharmacy 183.5 ml/min; Est GFR (African American) > 150.0; Est GFR (Non-African American) 130.8; Glucose 100 mg/dl (70-99); Potassium 3.3 mmol/L (3.5-5.1); Sodium 142 mmol/L (136-145)
[2019-11-19 06:38] LABS: Albumin Globulin Ratio 0.4 (0.9-2); Alkaline Phosphatase 114 U/L (45-117); Bilirubin,Total 0.2 mg/dl (0.2-1); Globulin 3.8 gm/dl (2.5-4.0); Phosphorus 3.3 mg/dl (2.5-4.9); Total Protein 5.5 gm/dl (6.4-8.2)
[2019-11-19] MEDS: POT PHOSPHATE MONOBASIC W/ SOD TAB GT SCH ×2 (08:04→21:16)
[2019-11-19] MEDS: MULTI VIT W/MINERALS LIQUID 15 ML UDP PEG SCH (08:04)
[2019-11-19] MEDS: FERROUS SULFATE 325 MG/7.4 ML UDP PO SCH ×2 (08:04→16:18)
[2019-11-19] MEDS: FOLIC ACID 1 MG TAB PO SCH (08:05)
[2019-11-19] MEDS: LANSOPRAZOLE 15 MG SOLTAB GT SCH (08:05)
[2019-11-19] MEDS: MAGNESIUM OXIDE 400 MG TAB PO SCH ×2 (08:05→21:34)
[2019-11-19] MEDS: THIAMINE HCL 100 MG TAB PEG SCH (08:05)
[2019-11-19] MEDS: CYANOCOBALAMIN 500 MCG TABLET (VITAMIN B-12) PO SCH (08:05)
[2019-11-19] MEDS: POTASSIUM CHLORIDE 20 MEQ/15 ML UDC PO SCH ×2 (08:12→21:34)
[2019-11-19] MEDS: HYDROmorphone INJ 0.5 MG/0.5 ML SYR IV PRN (08:24)
[2019-11-19] MEDS: DOCUSATE SODIUM SYRUP 100 MG/10 ML UDC PO SCH ×2 (08:44→21:13)
[2019-11-19] MEDS: POLYETHYLENE (MIRALAX) 17 GM PACK PEG SCH (08:44)
[2019-11-19] MEDS ORDERED: VANCOMYCIN TROUGH ONE (15:30)
[2019-11-19] MEDS: oxyCODONE HCL IR 5 MG TAB (IMMEDIATE RELEASE) PO PRN ×2 (16:18→22:41)
--- NOTE | 2019-11-19 17:14 | Pharmacy Report ---
Pharmacy Abx Dose Short Note - Date of Service November 19, 2019 - Assessment & Plan Assessment 64 year old M receiving IV Vancomycin for treatment of MRSA bacteremia Day # 12 of antimicrobial therapy. Plan Vancomycin * Trough level of 17.8 mcg/mL is therapeutic * Continue dose of 1000 mg IV every 12 hours * Goal trough level for MRSA bacteremia : 15 to 20 mcg/mL * Renal function remains stable * Patient needs extended IV antibiotics given hx of right total hip arthroplasty. Would recommend checking trough outpatient 1-2x weekly to ensure level remains 15-20 mcg/ml. Also following renal function to ensure stable Pharmacy will continue to follow and will adjust dose/frequency as necessary. Thank you.
--- NOTE | 2019-11-19 18:25 | Hospitalist Progress Note ---
Date of Service November 19, 2019 Assessment & Plan (1) MRSA bacteremia: Cultured on 11/02 with rapid growth of 4/4 bottles with MRSA. No clear source other than right foot IV site which looked mildly red. PEG site looks clean without erythema or pus, however could have seeded bloodstream during this procedure I suppose. No other rashes or focal infection site except subsequently developed right knee pain and swelling which may have been seeded from the bacteremia. -Repeat blood cultures from 11/05 and 11/06 negative for growth Appreciate ID consultation - Echo on 11/04 showed no vegetations. Could not pursue JASON due to esophageal issues. - Continue vancomycin -> Will need prolonged IV antibiotics; plan for now is 4 weeks from last negative blood cultures on 11/06/2019 (End date: 12/03/2019) especially given history of right total hip arthroplasty/indwelling hardware and right septic arthritis of the knee -Orthopedics also recommends at least 4 weeks of IV antibiotics given the likely septic knee joint as below -needs weekly CBC, ESR, CRP,CMP while on Vanco, goal Vanco trough is 15-20 He has a PICC line in place in the right upper extremity since 11/10 (2) Anemia: Hgb was baseline ~9.0 - 10.0. Then trickled down to 7s and down to 6.8 on 11/10. No indication of bleeding. - Anemia labs indicate anemia of chronic disease worsened by phlebotomy while in the hospital. Ferritin was 1300 this admission secondary to inflammation,. B12 was normal, and he is on repletion also. -Received 1 unit PRBCs on 11/10 - On 11/11, hemoglobin bounced appropriately to 8.1. Hemoglobin continued to dwindle down again to 7.1 on 11/15 and had some bleeding in the drain from the right knee. Blood pressure was a little soft at 100 systolic -Transfused 1 unit PRBCs on 11/15 Hemoglobin now up appropriately again and stable at 8.4 -Added ferrous sulfate elixir 325 mg per G-tube twice daily -follow CBC in the morning and once weekly after that at rehab (3) Knee pain: Developed right knee pain x 1 week, then developed swelling and mild erythema on 11/12 Knee x-ray with likely bony infarct in the distal femur, otherwise no significant abnormalities Orthopedics aspirated the joint and it was cloudy yellow fluid, negative for crystals under microscope, Gram stain with WBCs but no organisms, culture no growth to date WBC count 63,000, did not seem quite high enough for septic joint, however he has been on IV vancomycin for over a week at the time of aspiration COuld be MRSA infection at worst, versus gout although absence of crystals Consult Ortho appreciated-now status post washout of the knee with repeat cultures on 11/14 -repeat synovial fluid analysis for crystals negative and Gram stain with WBCs, culture pending but no growth to date -drain removed now from the knee -Needs follow-up with orthopedic surgeon, Dr. Ayan Hernández, in 2 weeks around 11/28 -He can weight-bear as tolerated on the right lower extremity -Orthopedics recommends either aspirin or Lovenox for DVT prophylaxis-will choose Lovenox given that he had gastric ulcers (4) Thrombocytosis: Normal platelets until 11/07 as hemoglobin dropped lower.Most likely reactive from his anemia, now trending downward since PRBC transfusions given and anemia is improved -plts down to 463 today (5) Weight loss: This was the original reason for admission along with many months of inability to tolerate food with nausea and vomiting. Multifactorial - concern on subacute to working towards chronic malnutrition - appearing fairly severe. He was noted to have a tight LES sphincter and fluid-filled esophagus on EGD, perhaps achalasia Had a video swallow study in 08/2019 that showed no aspiration but with possible esophageal dysmotility Given severe malnutrition to include severe thiamine deficiency and protein calorie malnutrition, a PEG placed on 10/[address] Puentes after being on TPN temporarily He is now tolerating tube feeds well. Stopped TPN. He did have some refeeding syndrome initially and tube feeds were held, but have since been restarted and he is doing well, electrolytes remain stable and improved - Continue feeds titrating up to goal and vitamins. Discussed with dietitian-increasing rate slowly-will increase tube feed rate today to 40 mL's per hour and then hopefully will go up to 45 mL's per hour tomorrow if electrolytes stable -continue phosphate and potassium supplement, and increase potassium chloride elixir to 20 mEq twice daily Prealbumin very low at 8 -Continue to follow CMP, magnesium, phosphorus in the morning and then 3 times weekly at the rehab -Hopefully will be able to transition to bolus feeds prior to leaving the rehab hospital to go to home which would be easier for home feeding -Will need dietary consultation at rehab facility (6) Dysphagia: Has had nausea and vomiting since August 2019. Initially thought to be due to gastric ulcer, but it never really improved, and he was brought back to the hospital multiple times for dehydration and hypernatremia. He then had a cholecystectomy which still did not improve his symptoms - EGD with Dr. Puentes showed lots of secretions in the esophagus and a tight lower esophageal sphincter. - Thought this could be achalasia. Will need manometry study at [place]; likely as outpatient. Perhaps he could get Botox injections versus other treatment for this -continue PEG tube feedings for now to improve nutritional status -He is to remain strictly n.p.o. despite his repeated requests to try to eat regular food to prevent aspiration (7) Altered mental status: Metabolic encephalopathy. He has had ongoing encephalopathic features over several admissions and many weeks - ?chronicity of baseline problem / ?ability to recover. Much improved overall, but continues to have short-term memory deficits - Thiamine was <6 on 10/21/2019. -> Aggressively replaced thiamine (Wernicke dosing) -> Now on daily through G- tube. Much improved (8) Acute kidney injury: Cr up to 9.7, present on admission (10/20/2019). Secondary to profound dehydration - Now down to 0.38 and stable, making urine (9) Thiamine deficiency: as above, severe continue replacement with daily thiamine through PEG tube (10) Hypokalemia: Replaced again today for potassium of 3.3 which is improved from previous Magnesium is now normalized follow BMP, Magnesium in the morning and 2-3 times per week at rehab -Increase standing order of potassium chloride elixir through the PEG tube to 20 mEq twice daily (11) Pulmonary nodule: 5mm nodule noted incidentally on imaging in [facility] Needs outpt follow up (12) History of gastric ulcer: gastric nonbleeding ulcers on EGD 08/2019 Hemoglobin slowly trended downward again but no evidence of melena continue prevacid through PEG tube Avoid NSAIDs and aspirin (13) DVT prophylaxis: Continue SQ Lovenox and would continue for at least 2 weeks given knee surgery Dispo-medically stable yet again for discharge today, however continue to be awaiting insurance authorization which was submitted on 11/16 Admission and Anticipated Discharge Date Admission Date: October 20, 2019 Subjective Patient has no complaints, his right knee pain is much improved. Denies chest pain or shortness of breath. No abdominal pain. We are still awaiting rehab placement. Review of Systems Review of Systems: All systems reviewed & are unremarkable except as noted in HPI & below Physical Exam Constitutional: + thin; no acute distress Eyes: + anicteric sclerae Neck: trachea midline, no thyromegaly Respiratory: normal respiratory effort, lungs clear to auscultation Cardiovascular: RRR, no murmur, no edema Chest (Breasts): Chest: normal inspection of chest Gastrointestinal (Abdomen): normal bowel sounds, soft, nontender, no hepatosplenomegaly Inspection/Auscultation: + abdomen abnormal to inspection (PEG tube in place, no drainage or erythema surrounding) Musculoskeletal: Extremities: + extremities abnormal to inspection (Right lower extremity in Josh wrap not removed, drain has been removed) Skin: no rashes, warm and dry Neurologic: moves all extremities and awake; no focal motor deficits Psychiatric: Orientation: alert, oriented x 3 and cooperative Speech: normal rate/rhythm/volume of speech Lymphatic: no lymphedema Results & Data Results & Data ([facility]) Vital Signs (Past 12 Hours) Vital Signs Temp Pulse Pulse Resp BP Pulse Ox 11/19/19 15:00 37.2 C 92 H 21 146/71 H 96 11/19/19 06:44 37.2 C 83 19 127/69 96 Laboratory Results 11/19/19 11/19/19 11/19/19 Range/Units 18:41 15:41 12:34 WBC (4.8-10.8) K/uL RBC (4.7-6.1) M/uL Hgb (14.0-18.0) g/dL Hct (42-52) % MCV (80-100) fL MCH (25-34) pg MCHC (32-36) g/dL RDW Std Deviation (36.4-46.3) fL RDW Coeff of Kaleigh (11.5-14.5) % Plt Count (130-400) K/uL MPV (7.4-10.4) fL Immature Gran % (Auto) % Neut % (Auto) % Lymph % (Auto) % [place] % (Auto) % Eos % (Auto) % Baso % (Auto) % Neut # (Auto) (1.4-6.5) K/uL Lymph # (Auto) (1.2-3.4) K/uL [place] # (Auto) (0.11-0.59) K/uL Eos # (Auto) (0-0.5) K/uL Baso # (Auto) (0-0.2) K/uL Immature Gran # (Auto) (0.00-0.02) K/uL Sodium (136-145) mmol/L Potassium (3.5-5.1) mmol/L Chloride (98-107) mmol/L Carbon Dioxide (21-32) mmol/L Anion Gap (3-11) BUN (7-18) mg/dl Creatinine (0.6-1.4) mg/dl Est Cr Clr Drug Dosing ml/min Est GFR ( Amer) Est GFR (Non-Af Amer) BUN/Creatinine Ratio (10-20) Glucose (70-99) mg/dl POC Glucose 105 H 103 H (70-99) mg/dl Calcium (8.5-10.1) mg/dl Phosphorus (2.5-4.9) mg/dl Magnesium (1.8-2.4) mg/dl Total Bilirubin (0.2-1) mg/dl AST (15-37) U/L ALT (12-78) U/L Alkaline Phosphatase (45-117) U/L Total Protein (6.4-8.2) gm/dl Albumin (3.4-5.0) gm/dl Globulin (2.5-4.0) gm/dl Albumin/Globulin Ratio (0.9-2) Vancomycin Trough 17.8 (See Comment) mcg/ml 11/19/19 11/19/19 11/19/19 Range/Units 06:57 05:14 05:14 WBC 7.74 (4.8-10.8) K/uL RBC 2.79 L (4.7-6.1) M/uL Hgb 8.4 L (14.0-18.0) g/dL Hct 27.2 L (42-52) % MCV 97.5 (80-100) fL MCH 30.1 (25-34) pg MCHC 30.9 L (32-36) g/dL RDW Std Deviation 59.9 H (36.4-46.3) fL RDW Coeff of Kaleigh 16.9 H (11.5-14.5) % Plt Count 463 H (130-400) K/uL MPV 9.6 (7.4-10.4) fL Immature Gran % (Auto) 0.3 % Neut % (Auto) 72.2 % Lymph % (Auto) 18.0 % [place] % (Auto) 8.3 % Eos % (Auto) 0.9 % Baso % (Auto) 0.3 % Neut # (Auto) 5.60 (1.4-6.5) K/uL Lymph # (Auto) 1.39 (1.2-3.4) K/uL [place] # (Auto) 0.64 H (0.11-0.59) K/uL Eos # (Auto) 0.07 (0-0.5) K/uL Baso # (Auto) 0.02 (0-0.2) K/uL Immature Gran # (Auto) 0.02 (0.00-0.02) K/uL Sodium 142 (136-145) mmol/L Potassium 3.3 L (3.5-5.1) mmol/L Chloride 107 (98-107) mmol/L Carbon Dioxide 28 (21-32) mmol/L Anion Gap 7.0 (3-11) BUN 5 L (7-18) mg/dl Creatinine 0.35 L (0.6-1.4) mg/dl Est Cr Clr Drug Dosing 183.5 ml/min Est GFR ( Amer) > 150.0 Est GFR (Non-Af Amer) 130.8 BUN/Creatinine Ratio 14.7 (10-20) Glucose 100 H (70-99) mg/dl POC Glucose 97 (70-99) mg/dl Calcium 8.2 L (8.5-10.1) mg/dl Phosphorus 3.3 (2.5-4.9) mg/dl Magnesium 2.0 (1.8-2.4) mg/dl Total Bilirubin 0.2 (0.2-1) mg/dl AST 10 L (15-37) U/L ALT 12 (12-78) U/L Alkaline Phosphatase 114 (45-117) U/L Total Protein 5.5 L (6.4-8.2) gm/dl Albumin 1.7 L (3.4-5.0) gm/dl Globulin 3.8 (2.5-4.0) gm/dl Albumin/Globulin Ratio 0.4 L (0.9-2) Vancomycin Trough (See Comment) mcg/ml 11/19/19 Range/Units 00:03 WBC (4.8-10.8) K/uL RBC (4.7-6.1) M/uL Hgb (14.0-18.0) g/dL Hct (42-52) % MCV (80-100) fL MCH (25-34) pg MCHC (32-36) g/dL RDW Std Deviation (36.4-46.3) fL RDW Coeff of Kaleigh (11.5-14.5) % Plt Count (130-400) K/uL MPV (7.4-10.4) fL Immature Gran % (Auto) % Neut % (Auto) % Lymph % (Auto) % [place] % (Auto) % Eos % (Auto) % Baso % (Auto) % Neut # (Auto) (1.4-6.5) K/uL Lymph # (Auto) (1.2-3.4) K/uL [place] # (Auto) (0.11-0.59) K/uL Eos # (Auto) (0-0.5) K/uL Baso # (Auto) (0-0.2) K/uL Immature Gran # (Auto) (0.00-0.02) K/uL Sodium (136-145) mmol/L Potassium (3.5-5.1) mmol/L Chloride (98-107) mmol/L Carbon Dioxide (21-32) mmol/L Anion Gap (3-11) BUN (7-18) mg/dl Creatinine (0.6-1.4) mg/dl Est Cr Clr Drug Dosing ml/min Est GFR ( Amer) Est GFR (Non-Af Amer) BUN/Creatinine Ratio (10-20) Glucose (70-99) mg/dl POC Glucose 107 H (70-99) mg/dl Calcium (8.5-10.1) mg/dl Phosphorus (2.5-4.9) mg/dl Magnesium (1.8-2.4) mg/dl Total Bilirubin (0.2-1) mg/dl AST (15-37) U/L ALT (12-78) U/L Alkaline Phosphatase (45-117) U/L Total Protein (6.4-8.2) gm/dl Albumin (3.4-5.0) gm/dl Globulin (2.5-4.0) gm/dl Albumin/Globulin Ratio (0.9-2) Vancomycin Trough (See Comment) mcg/ml PG Care Time/CCT Total # of Minutes Spent Total Time Spent with Patient: Total time spent is greater than 50% in coordination of care (as documented) at patient's floor/unit and/or counseling patient: Coding Level of Care Code 43095 Subseq Hosp Care Lvl 2 Diagnoses MRSA bacteremia R78.81; B95.62 Anemia D64.9 Knee pain M25.569 Thrombocytosis D47.3 Weight loss R63.4 Dysphagia R13.10 Altered mental status R40.1 Altered mental status type: stupor Acute kidney injury N17.9 Thiamine deficiency E51.9 Hypokalemia E87.6 Pulmonary nodule R91.1 History of gastric ulcer Z87.19 DVT prophylaxis Z29.9 (1) Altered mental status Altered mental status type: stupor Qualified Code(s): R40.1 - Stupor
[2019-11-19] MEDS: ENOXAPARIN INJ 40 MG/0.4 ML SYR SQ SCH (18:37)
[2019-11-19] MEDS ORDERED: DEXTROSE 10% 1,000 ML BAG IV ONE (18:52)
[2019-11-19] MEDS ORDERED: SENNOSIDES 8.8 MG/5 ML UDC PO SCH (21:00)
[2019-11-20] MEDS: VANCOMYCIN HCL 1,000 MG in SODIUM CHLORIDE 0.9% 250 ML IV SCH ×2 (04:44→15:49)
[2019-11-20 05:53] LABS: Basophils # (auto) 0.06 K/uL (0-0.2); Basophils % (auto) 0.9 %; Eosinophils % (auto) 1.4 %; Hematocrit (blood only) 27.6 % (42-52); Hemoglobin 8.7 g/dL (14.0-18.0); Immature Granulocytes # (auto) 0.03 K/uL (0.00-0.02); Immature Granulocytes % (auto) 0.4 %; Lymphocytes # (auto) 1.26 K/uL (1.2-3.4); Mean Corpuscular Hemoglobin 30.6 pg (25-34); Mean Corpuscular Hgb Conc 31.5 g/dL (32-36); Mean Corpuscular Volume 97.2 fL (80-100); Mean Platelet Volume 9.2 fL (7.4-10.4); Monocytes # (auto) 0.65 K/uL (0.11-0.59); Monocytes % (auto) 9.3 %; Neutrophils # (auto) 4.91 K/uL (1.4-6.5); Platelet Count 430 K/uL (130-400); RDW Coefficient of Variation 16.6 % (11.5-14.5); RDW Standard Deviation 59.8 fL (36.4-46.3); Red Blood Count 2.84 M/uL (4.7-6.1); White Blood Count 7.01 K/uL (4.8-10.8)
[2019-11-20 06:25] LABS: Albumin Globulin Ratio 0.4 (0.9-2); Albumin Level 1.7 gm/dl (3.4-5.0); BUN Creatinine Ratio 17.7 (10-20); Bilirubin,Total 0.2 mg/dl (0.2-1); Calcium 8.7 mg/dl (8.5-10.1); Creatinine Clr Calc Pharmacy 153.9 ml/min; Est GFR (African American) 140.6; Est GFR (Non-African American) 121.3; Globulin 4.1 gm/dl (2.5-4.0); Magnesium 1.7 mg/dl (1.8-2.4); Phosphorus 4.2 mg/dl (2.5-4.9); Potassium 3.8 mmol/L (3.5-5.1); Total Protein 5.8 gm/dl (6.4-8.2)
[2019-11-20 07:00] VITALS: TEMP 98.4
[2019-11-20] MEDS: POLYETHYLENE (MIRALAX) 17 GM PACK PEG SCH (08:18)
[2019-11-20] MEDS: DOCUSATE SODIUM SYRUP 100 MG/10 ML UDC PO SCH (08:18)
[2019-11-20] MEDS: ACETAMINOPHEN SOLN 1000MG/31.25ML UDC GT SCH ×2 (08:19→15:47)
[2019-11-20] MEDS: POT PHOSPHATE MONOBASIC W/ SOD TAB GT SCH (08:19)
[2019-11-20] MEDS: MAGNESIUM OXIDE 400 MG TAB PO SCH (08:22)
[2019-11-20] MEDS: MULTI VIT W/MINERALS LIQUID 15 ML UDP PEG SCH (08:22)
[2019-11-20] MEDS: CYANOCOBALAMIN 500 MCG TABLET (VITAMIN B-12) PO SCH (08:23)
[2019-11-20] MEDS: LANSOPRAZOLE 15 MG SOLTAB GT SCH (08:23)
[2019-11-20] MEDS: FOLIC ACID 1 MG TAB PO SCH (08:23)
[2019-11-20] MEDS: FERROUS SULFATE 325 MG/7.4 ML UDP PO SCH (08:24)
[2019-11-20] MEDS: THIAMINE HCL 100 MG TAB PEG SCH (08:24)
[2019-11-20] MEDS: POTASSIUM CHLORIDE 20 MEQ/15 ML UDC PO SCH (08:26)
[2019-11-20] MEDS: oxyCODONE HCL IR 5 MG TAB (IMMEDIATE RELEASE) PO PRN ×2 (08:26→15:47)
[2019-11-20] MEDS ORDERED: MAGNESIUM SULFATE / D5W 1 GM/100 ML BAG IV ONE (08:30)
[2019-11-20] MEDS: PEPTAMEN 1.5 CAL 1,000 ML BAG GT SCH (08:43)
--- NOTE | 2019-11-20 08:50 | Progress Notes ---
DATE: 11/20/2019 SUBJECTIVE: A 64-year-old gentleman now 5 days out from arthroscopic irrigation, debridement and synovectomy for an apparent septic knee. He is doing okay. Still has some knee pain, but seems to be getting better. No new complaints. OBJECTIVE: VITAL SIGNS: Temperature 36.9. Vital signs stable. GENERAL: Shows a pleasant elderly male. He is lying in bed, looks reasonably comfortable. EXTREMITIES: Examination of the right leg reveals the leg to be well aligned. Portal sites are well healed and approximated. There are no signs of drainage. Pretty minimal knee effusion. He is neurologically intact. CULTURE RESULTS: Culture results from the knee today, there have been no growth. ASSESSMENT: A 64-year-old gentleman admitted with MRSA bacteremia and an apparent septic knee. He is now 5 days out from I and D and seems to be doing okay. The knee shows minimal swelling. PLAN: 1. DVT prophylaxis including thigh-high TEDs, SCDs, and anticoagulation as per the medicine service. 2. PT/OT. He can weightbear as tolerated. There are no restrictions from the right knee standpoint. 3. Medical management. As per the medicine service. He is going to need some IV antibiotics likely for 4-6 weeks. 4. Disposition: He is orthopedically okay for discharge any time. I need to see him back in 2-3 weeks from her surgery date. Any orthopedic questions can be directed to me at [phone].
--- NOTE | 2019-11-20 13:34 | Hospitalist Progress Note ---
Date of Service November 20, 2019 Assessment & Plan (1) MRSA bacteremia: Cultured on 11/02 with rapid growth of 4/4 bottles with MRSA. No clear source other than right foot IV site which looked mildly red. PEG site looks clean without erythema or pus, however could have seeded bloodstream during this procedure. No other rashes or focal infection site except subsequently developed right knee pain and swelling which may have been seeded from the bacteremia. -Repeat blood cultures from 11/05 and 11/06 negative for growth Appreciate ID consultation - Echo on 11/04 showed no vegetations. Could not pursue JASON due to esophageal issues. - Continue vancomycin -> Will need prolonged IV antibiotics; plan for now is 4 weeks from last negative blood cultures on 11/06/2019 (End date: 12/03/2019) especially given history of right total hip arthroplasty/indwelling hardware and right septic arthritis of the knee -Orthopedics also recommends at least 4 weeks of IV antibiotics given the likely septic knee joint as below -needs weekly CBC, ESR, CRP,CMP while on Vanco, goal Vanco trough is 15-20 He has a PICC line in place in the right upper extremity since 11/10 (2) Anemia: Hgb was baseline ~9.0 - 10.0. Then trickled down to 7s and down to 6.8 on 11/10. No indication of bleeding. - Anemia labs indicate anemia of chronic disease worsened by phlebotomy while in the hospital. Ferritin was 1300 this admission secondary to inflammation,. B12 was normal, and he is on repletion also. -Received 1 unit PRBCs on 11/10 - On 11/11, hemoglobin bounced appropriately to 8.1. Hemoglobin continued to dwindle down again to 7.1 on 11/15 and had some bleeding in the drain from the right knee. Blood pressure was a little soft at 100 systolic -Transfused 1 unit PRBCs on 11/15 Hemoglobin now up appropriately again and stable at 8.7 -Added ferrous sulfate elixir 325 mg per G-tube twice daily -follow CBC in the morning and once weekly after that at rehab (3) Knee pain: Developed right knee pain x 1 week, then developed swelling and mild erythema on 11/12 Knee x-ray with likely bony infarct in the distal femur, otherwise no significant abnormalities Orthopedics aspirated the joint and it was cloudy yellow fluid, negative for crystals under microscope, Gram stain with WBCs but no organisms, culture no growth to date WBC count 63,000, did not seem quite high enough for septic joint, however he has been on IV vancomycin for over a week at the time of aspiration COuld be MRSA infection at worst, versus gout although absence of crystals Consult Ortho appreciated-now status post washout of the knee with repeat cultures on 11/14 -repeat synovial fluid analysis for crystals negative and Gram stain with WBCs, culture pending but no growth to date -drain removed now from the knee -Needs follow-up with orthopedic surgeon, Dr. Ayan Hernández, in 2 weeks around 11/28 -He can weight-bear as tolerated on the right lower extremity -Orthopedics recommends either aspirin or Lovenox for DVT prophylaxis-will choose Lovenox given that he had gastric ulcers (4) Thrombocytosis: Normal platelets until 11/07 as hemoglobin dropped lower.Most likely michel ctive from his anemia, now trending downward since PRBC transfusions given and anemia is improved -plts down to 463 today (5) Weight loss: This was the original reason for admission along with many months of inability to tolerate food with nausea and vomiting. Multifactorial - concern on subacute to working towards chronic malnutrition - appearing fairly severe. He was noted to have a tight LES sphincter and fluid-filled esophagus on EGD, perhaps achalasia Had a video swallow study in 08/2019 that showed no aspiration but with possible esophageal dysmotility Given severe malnutrition to include severe thiamine deficiency and protein calorie malnutrition, a PEG placed on 10/[address] Puentes after being on TPN temporarily He is now tolerating tube feeds well. Stopped TPN. He did have some refeeding syndrome initially and tube feeds were held, but have since been restarted and he is doing well, electrolytes remain stable and improved - Continue feeds titrating up to goal and vitamins. Discussed with dietitian-increasing rate slowly-will increase tube feed rate today to 40 mL's per hour and then hopefully will go up to 45 mL's per hour estuardo orrow if electrolytes stable -continue phosphate and potassium supplement, and increase potassium chloride elixir to 20 mEq twice daily Prealbumin very low at 8 -Continue to follow CMP, magnesium, phosphorus in the morning and then 3 times weekly at the rehab -Hopefully will be able to transition to bolus feeds prior to leaving the rehab hospital to go to home which would be easier for home feeding -Will need dietary consultation at rehab facility (6) Dysphagia: Has had nausea and vomiting since August 2019. Initially thought to be due to gastric ulcer, but it never really improved, and he was brought back to the hospital multiple times for dehydration and hypernatremia. He then had a cholecystectomy which still did not improve his symptoms - EGD with Dr. Puentes showed lots of secretions in the esophagus and a tight lower esophageal sphincter. - Thought this could be achalasia. Will need manometry study at [facility]; likely as outpatient. Perhaps he could get Botox injections versus other treatment for this -continue PEG tube feedings for now to improve nutritional status -He is to remain strictly n.p.o. despite his repeated requests to try to eat regular food to prevent aspiration (7) Altered mental status: Metabolic encephalopathy. He has had ongoing encephalopathic features over several admissions and many weeks - ?chronicity of baseline problem / ?ability to recover. Much improved overall, but continues to have short-term memory deficits - Thiamine was <6 on 10/21/2019. -> Aggressively replaced thiamine (Wernicke dosing) -> Now on daily through G- tube. Much improved (8) Acute kidney injury: Cr up to 9.7, present on admission (10/20/2019). Secondary to profound dehydration - Now down to 0.38 and stable, making urine (9) Thiamine deficiency: as above, severe continue replacement with daily thiamine through PEG tube (10) Hypokalemia: Replaced again today for potassium of 3.3 which is improved from previous Magnesium is now normalized follow BMP, Magnesium in the morning and 2-3 times per week at rehab -Increase standing order of potassium chloride elixir through the PEG tube to 20 mEq twice daily (11) Pulmonary nodule: 5mm nodule noted incidentally on imaging in [facility] Needs outpt follow up (12) History of gastric ulcer: gastric nonbleeding ulcers on EGD 08/2019 Hemoglobin slowly trended downward again but no evidence of melena continue prevacid through PEG tube Avoid NSAIDs and aspirin (13) DVT prophylaxis: Continue SQ Lovenox and would continue for at least 2 weeks given knee surgery Dispo-medically stable yet again for discharge today, however continue to be awaiting insurance authorization which was submitted on 11/16 Admission and Anticipated Discharge Date Admission Date: October 20, 2019 Subjective Mr. Tariq has no complaints today, he is feeling well. Tolerating his tube feed. ROS Constitutional: no chills, aches, sweats or fever Respiratory: no sob,cough, sputum, or wheezing Cardiac: no chest pain, palpitations, edema, orthopnea or lightheadedness GI: no abdominal pain, nausea, vomiting, diarrhea or constipation : no dysuria or hesitancy Extremities: no joint pain or weakness Skin: no rash All other systems reviewed and negative Physical Exam Physical Exam: General: no distress Eyes: normal inspection, PERLL Respiratory: chest non tender, clear to auscultation, normal breath sounds, no respiratory distress, no accessory muscle use Cardiac: regular rate and rhythm, no rub or gallop, no murmur, no edema, no jvd GI/: active bowel sounds, no abd pain or tenderness, soft, non distended Extremities: normal range of motion, normal strength, non tender Neuro/Psych: alert and oriented x 3, normal mood and affect Skin: normal color, dry Results & Data Results & Data ([facility]) Vital Signs (Past 12 Hours) Vital Signs Temp Pulse Resp BP Pulse Ox 11/20/19 06:59 36.9 C 85 16 132/68 95 PG Care Time/CCT Total # of Minutes Spent Total Time Spent with Patient: Total time spent is greater than 50% in coordination of care (as documented) at patient's floor/unit and/or counseling patient: Coding Diagnoses MRSA bacteremia R78.81; B95.62 Anemia D64.9 Knee pain M25.569 Thrombocytosis D47.3 Weight loss R63.4 Dysphagia R13.10 Altered mental status R40.1 Altered mental status type: stupor Acute kidney injury N17.9 Thiamine deficiency E51.9 Hypokalemia E87.6 Pulmonary nodule R91.1 History of gastric ulcer Z87.19 DVT prophylaxis Z29.9 (1) Altered mental status Altered mental status type: stupor Qualified Code(s): R40.1 - Stupor
--- NOTE | 2019-11-20 13:46 | Discharge Summary ---
Date of Service November 20, 2019 Admission HPI Per Admitting Provider For EGD with PEG placement Principal Diagnosis MRSA bacteremia Discharge Exam Constitutional WD/WN, vitals as above Respiratory normal respiratory effort, lungs clear to auscultation Cardiovascular RRR, no murmur, no edema Gastrointestinal (Abdomen) Inspection/Auscultation: abdomen normal to inspection and normal bowel sounds; abdomen not distended Percussion/Palpation: abdomen soft; abdomen nontender Musculoskeletal no cyanosis or clubbing, extremities motor strength 5/5 Skin no rashes, warm and dry Neurologic moves all extremities and awake Psychiatric A+Ox3, euthymic affect Discharge Data Allergies Allergy/AdvReac Type Severity Reaction Status Date / Time bee venom protein (honey bee) Allergy Severe ANAPHYLACTIC Verified 10/20/19 21:07 REACTION A CHILD Consultations 10/20/19 20:07 ED Decision to Admit Stat 10/20/19 23:43 Consult Case Management - Discharge Planning Routine Consult Neurology Routine 10/24/19 19:39 Consult Gastroenterology Routine 11/06/19 08:22 Consult Infectious Diseases Routine 11/06/19 16:44 Consult Anesthesiology Routine 11/13/19 13:29 Consult Orthopedic Surgery Routine 11/15/19 18:26 Consult Case Management - Discharge Planning Routine 11/17/19 09:39 Consult Case Management - Discharge Planning Routine Procedures Performed Operation Date: 10/31/19 08:30 Actual Procedures p EGD Gastric Tube Placement - Karl Med FarnsworthDeloris Operation Date: 11/15/19 07:00 Actual Procedures p Right Knee Arthroscopy(Right) - Moreno Hernández MD Ordered Studies 10/20/19 18:25 CT cervical spine wo con Stat CT head/brain wo con Stat 10/21/19 10:58 MR brain wo con Routine 10/26/19 08:00 FL lumbar puncture diagnostic Routine 11/06/19 19:01 CT abd pelvis IV con only Urgent Hospital Course (1) MRSA bacteremia: Cultured on 11/02 with rapid growth of 4/4 bottles with MRSA. No clear source other than right foot IV site which looked mildly red. PEG site looks clean without erythema or pus, however could have seeded bloodstream during this procedure. No other rashes or focal infection site except subsequently developed right knee pain and swelling which may have been seeded from the bacteremia. -Repeat blood cultures from 11/05 and 11/06 negative for growth Appreciate ID consultation - Echo on 11/04 showed no vegetations. Could not pursue JASON due to esophageal issues. - Continue vancomycin -> Will need prolonged IV antibiotics; plan for now is 4 weeks from last negative blood cultures on 11/06/2019 (End date: 12/03/2019) especially given history of right total hip arthroplasty/indwelling hardware and right septic arthritis of the knee -Orthopedics also recommends at least 4 weeks of IV antibiotics given the likely septic knee joint as below -needs weekly CBC, ESR, CRP,CMP while on Vanco, goal Vanco trough is 15-20 He has a PICC line in place in the right upper extremity since 11/10 (2) Anemia: Hgb was baseline ~9.0 - 10.0. Then trickled down to 7s and down to 6.8 on 11/10. No indication of bleeding. - Anemia labs indicate anemia of chronic disease worsened by phlebotomy while in the hospital. Ferritin was 1300 this admission secondary to inflammation,. B12 was normal, and he is on repletion also. -Received 1 unit PRBCs on 11/10 - On 11/11, hemoglobin bounced appropriately to 8.1. Hemoglobin continued to dwindle down again to 7.1 on 11/15 and had some bleeding in the drain from the right knee. Blood pressure was a little soft at 100 systolic -Transfused 1 unit PRBCs on 11/15 Hemoglobin now up appropriately again and stable at 8.7 -Added ferrous sulfate elixir 325 mg per G-tube twice daily -follow CBC in the morning and once weekly after that at rehab (3) Knee pain: Developed right knee pain x 1 week, then developed swelling and mild erythema on 11/12 Knee x-ray with likely bony infarct in the distal femur, otherwise no significant abnormalities Orthopedics aspirated the joint and it was cloudy yellow fluid, negative for crystals under microscope, Gram stain with WBCs but no organisms, culture no growth to date WBC count 63,000, did not seem quite high enough for septic joint, however he has been on IV vancomycin for over a week at the time of aspiration COuld be MRSA infection at worst, versus gout although absence of crystals Consult Ortho appreciated-now status post washout of the knee with repeat cultures on 11/14 -repeat synovial fluid analysis for crystals negative and Gram stain with WBCs, culture no growth to date -drain removed now from the knee -Needs follow-up with orthopedic surgeon, Dr. Ayan Hernández, in 2 weeks around 11/28 -He can weight-bear as tolerated on the right lower extremity -Orthopedics recommends either aspirin or Lovenox for DVT prophylaxis-will choose Lovenox given that he had gastric ulcers - will order for another 3 weeks and will need to fu with orthopedics as to length of treatment (4) Thrombocytosis: Normal platelets until 11/07 as hemoglobin dropped lower.Most likely michel ctive from his anemia, now trending downward since PRBC transfusions given and anemia is improved -plts down to 463 today (5) Weight loss: This was the original reason for admission along with many months of inability to tolerate food with nausea and vomiting. Multifactorial - concern on subacute to working towards chronic malnutrition - appearing fairly severe. He was noted to have a tight LES sphincter and fluid-filled esophagus on EGD, perhaps achalasia Had a video swallow study in 08/2019 that showed no aspiration but with possible esophageal dysmotility Given severe malnutrition to include severe thiamine deficiency and protein calorie malnutrition, a PEG placed on 10/[address] Puentes after being on TPN temporarily He is now tolerating tube feeds well. Stopped TPN. He did have some refeeding syndrome initially and tube feeds were held, but have since been restarted and he is doing well, electrolytes remain stable and improved - Continue feeds titrating up to goal and vitamins. Discussed with dietitian-increasing rate slowly-will increase tube feed rate today to 40 mL's per hour and then hopefully will go up to 45 mL's per hour at this point -continue phosphate and potassium supplement, and increase potassium chloride elixir to 20 mEq twice daily Prealbumin very low at 8 -Continue to follow CMP, magnesium, phosphorus in the morning and then 3 times weekly at the rehab -Hopefully will be able to transition to bolus feeds prior to leaving the rehab hospital to go to home which would be easier for home feeding -Will need dietary consultation at rehab facility (6) Dysphagia: Has had nausea and vomiting since August 2019. Initially thought to be due to gastric ulcer, but it never really improved, and he was brought back to the hospital multiple times for dehydration and hypernatremia. He then had a cholecystectomy which still did not improve his symptoms - EGD with Dr. Puentes showed lots of secretions in the esophagus and a tight lower esophageal sphincter. - Thought this could be achalasia. Will need manometry study at [facility]; likely as outpatient. Perhaps he could get Botox injections versus other treatment for this -continue PEG tube feedings for now to improve nutritional status -He is to remain strictly n.p.o. despite his repeated requests to try to eat regular food to prevent aspiration (7) Altered mental status: Metabolic encephalopathy. He has had ongoing encephalopathic features over several admissions and many weeks - ?chronicity of baseline problem / ?ability to recover. Much improved overall, but continues to have short-term memory deficits - Thiamine was <6 on 10/21/2019. -> Aggressively replaced thiamine (Wernicke dosing) -> Now on daily through G- tube. Much improved (8) Acute kidney injury: Cr up to 9.7, present on admission (10/20/2019). Secondary to profound dehydration - Now down to 0.4 and stable, making urine (9) Thiamine deficiency: as above, severe continue replacement with daily thiamine through PEG tube (10) Hypokalemia: Replaced again today for potassium of 3.8 which is improved from previous Magnesium replaced today as it was just under normal at 1.7 follow BMP, Magnesium in the morning and 2-3 times per week at rehab -Increased standing order of potassium chloride elixir through the PEG tube to 20 mEq twice daily (11) Pulmonary nodule: 5mm nodule noted incidentally on imaging in [facility] Needs outpt follow up (12) History of gastric ulcer: gastric nonbleeding ulcers on EGD 08/2019 Hemoglobin slowly trended downward again but no evidence of melena continue prevacid through PEG tube Avoid NSAIDs and aspirin (13) DVT prophylaxis: Continue SQ Lovenox and would continue for 3 weeks given knee surgery Total Time Total Time Spent Total Time Spent (In Minutes): greater than 30 minutes Discharge Plan Discharge Items Patient Disposition: Transfer Inpatient Rehab Fac Reason For Visit: AMS, HYPERNATREMIA Discharge Diagnosis: Malnutrition, hypernatremia Activity: Per Instructions section Weightbearing: Full weightbearing Non-emergency contact: Primary Care Provider and Dry Press Operator Call non-emergency contact if: you have any medication questions Follow-up/Referrals: Karl Puentes [Physician] - (Please see Dr. Puentes in 2-3 weeks for follow up.) Moreno Hernández MD [Physician] - (Return to orthopedic clinic 2-3 weeks from surgery date (around 11/28)) Lobito Orourke Jr, DO [Primary Care Provider] - Diet: Nothing by Mouth Addtl Attending Provider Instructions: (1) MRSA bacteremia: Cultured on 11/02 with rapid growth of 4/4 bottles with MRSA, possibly from foot wound or tube insertion site but unclear - Continue vancomycin -> Will need prolonged IV antibiotics; plan for now is 4 weeks from last negative blood cultures on 11/06/2019 (End date: 12/03/2019) especially given history of right total hip arthroplasty/indwelling hardware and right septic arthritis of the knee -Orthopedics also recommends at least 4 weeks of IV antibiotics given the likely septic knee joint as below -needs weekly CBC, ESR, CRP,CMP while on Vanco, goal Vanco trough is 15-20 He has a PICC line in place in the right upper extremity since 11/10 (2) Anemia: Hgb was baseline ~9.0 - 10.0. Then trickled down to 7s and down to 6.8 on 11/10. No indication of bleeding. - Received 2 units prbcs during his hospital stay Hemoglobin now up appropriately again and stable at 8.7 -Added ferrous sulfate elixir 325 mg per G-tube twice daily -follow CBC once weekly (3) Knee pain: Developed right knee pain x 1 week, then developed swelling and mild erythema on 11/12 Orthopedics aspirated the joint and it was cloudy yellow fluid, negative for crystals under microscope, Gram stain with WBCs but no organisms, culture no growth to date WBC count 63,000, did not seem quite high enough for septic joint, however he has been on IV vancomycin for over a week at the time of aspirationd Consulted Ortho appreciated-now status post washout of the knee with repeat cultures on 11/14 -repeat synovial fluid analysis for crystals negative and Gram stain with WBCs, culture pending but no growth to date - again, no crystals found -Needs follow-up with orthopedic surgeon, Dr. Ayan Hernández, in 2 weeks around 11/28 -He can weight-bear as tolerated on the right lower extremity -Orthopedics recommends either aspirin or Lovenox for DVT prophylaxis-will choose Lovenox given that he had gastric ulcers - would give until follow up with ortho and then have patient discuss whether to extend dvt prophylaxis or stop at next appointment (4) Thrombocytosis: Reactive, trending back down (5) Weight loss: Multifactorial - achalasia, esophageal dysmotility, no aspiration on video swallow. PEG was placed on 10/[address] Puentes He did have some refeeding syndrome initially and tube feeds were held, but have since been restarted and he is doing well, electrolytes remain stable and improved - Continue feeds titrating up to goal and vitamins. Discussed with dietitian-increasing rate slowly-was at 40 mL's per hour today and tolerated - can increase to 45 mls which is goal -continue phosphate and potassium supplement 20 mEq per day -CMP, magnesium, phosphorus in the morning and then 3 times weekly at the rehab -Hopefully will be able to transition to bolus feeds prior to leaving the rehab hospital to go to home which would be easier for home feeding -Will need dietary consultation at rehab facility (6) Dysphagia: Likely achalasia. Will need manometry study at [facility] as outpatient. -continue PEG tube feedings for now to improve nutritional status -He is to remain strictly n.p.o. despite his repeated requests to try to eat regular food to prevent aspiration (7) Altered mental status: Improved - Thiamine was <6 on 10/21/2019. -> Aggressively replaced thiamine (Wernicke dosing) -> Now on daily through G- tube. (8) Acute kidney injury: Cr up to 9.7, present on admission (10/20/2019). Secondary to profound dehydration - Now down to 0.42 and stable, making urine (9) Thiamine deficiency: as above, severe continue replacement with daily thiamine through PEG tube (10) Hypokalemia: Replaced Magnesium 1.7 today and replaced follow BMP, Magnesium in the morning and 2-3 times per week at rehab -standing order of potassium chloride elixir through the PEG tube to 20 mEq twice daily (11) Pulmonary nodule: 5mm nodule noted incidentally on imaging in [facility] Needs outpt follow up (12) History of gastric ulcer: gastric nonbleeding ulcers on EGD 08/2019 Continue prevacid through PEG tube Avoid NSAIDs and aspirin (13) DVT prophylaxis: Continue SQ Lovenox and continue until follow up with orthopedics Tube feed instructions: Peptamin 1.5 @ goal of 45 mL/hr 24h continuous with 170 mL free water flush Q4h; total free water 1854 mL/day. IF YOU EXPERIENCE ANY OF THE FOLLOWING SYMPTOMS AFTER YOUR PROCEDURE CALL YOUR PRIMARY CARE PHYSICIAN IMMEDIATELY OR SEEK MEDICAL ATTENTION AT YOUR NEAREST EMERGENCY ROOM: 1. SEVERE abdominal pain or bloating 2. FEVER greater than 101.1 degrees within 24 hours after the procedure 3. LARGE AMOUNTS OF BLEEDING greater than 2-3 tablespoons. If you had a polyp/s removed or have hemorrhoids, a small amount of blood from the rectum is to be expected. 4. A localized irritation of the vein may occur at the site of the IV injection. Hot moist packs to the vein applied 4-6 times per day may reduce pain and irritation. A tender lump may develop and remain for several weeks to several months, but goes away eventually. If the area continues to be painful or becomes red and hot to the touch. For routine questions call [facility] at [phone]. * Avoid the use of alcohol and sedatives for 24 hours. Pending Studies at Discharge: No Stand-Alone Forms: My [facility] Doist, Smoking Cessation Skilled Items Patient informed of condition?: Yes DNR: No Discharge Level of Care: Acute rehab Communicable Disease: No Discharge Prognosis: Improving Lines: None Urinary Catheter: No Medications and DC Order Prescriptions: New lansoprazole [Prevacid SoluTab] 15 mg Tablet,Disintegrat, Delay Rel 15 mg G-tube QAM Qty: 0 RF: 0 acetaminophen 160 mg/5 mL (5 mL) Solution 650 mg G-tube Q6H PRNQty: 0 RF: 0 Peptamen 1.5 0.068 gram- 1.5 kcal/mL Liquid 1,000 ml G-tube UD Qty: 0 RF: 0 thiamine HCl (vitamin B1) [Vitamin B-1] 100 mg Tablet 100 mg PEG QAM Qty: 1 RF: 0 cyanocobalamin (vitamin B-12) 500 mcg Tablet 500 mcg PO QAM Qty: 1 RF: 0 enoxaparin 40 mg/0.4 mL Syringe 40 mg subcut Q24H 21 Days Qty: 8.4 RF: 0 oxycodone 5 mg Tablet 5 mg PO Q6 PRN (Reason: pain) Qty: 20 RF: 0 potassium chloride 20 mEq/15 mL Liquid 20 meq PO BID Qty: 60 RF: 0 Phospha 250 Neutral 250 mg Tablet 2 tab G-tube BID Qty: 60 RF: 0 folic acid 1 mg Tablet 1 mg PO QAM Qty: 30 RF: 0 [id number]-[id number] gluconate [Centrum] 9 mg iron/15 mL Liquid 15 ml PEG QAM Qty: 30 RF: 0 vancomycin 1,000 mg recon soln 1 g IV BID 14 Days Qty: 28 RF: 0 ferrous sulfate 220 mg (44 mg iron)/5 mL elixir 325 mg PO BID Qty: 473 RF: 0 Continued epinephrine [EpiPen] 0.3 mg/0.3 mL Auto-Injector 0.3 mg IM DIRECTED PRN (Reason: Allergic Reaction) RF: 0 Discontinued amlodipine 10 mg tablet 10 mg PO DAILY RF: 0 losartan 100 mg tablet 100 mg PO DAILY RF: 0 potassium chloride 20 mEq/15 mL liquid 20 meq PO DAILY Qty: 1200 RF: 0 omeprazole 40 mg capsule,delayed release(DR/EC) 40 mg PO BID RF: 0 acetaminophen 500 mg Capsule 500 mg PO QID PRN (Reason: Pain) RF: 0 Discharge Orders: Discharge Order (Routine); Ordered 11/20/19 Ordered By: Brittany Child Admission Data Admit Date/Time: 10/20/19 21:16 Attending Provider: Iain Hernandez Admit Provider: Lizzie Newman Primary Care Provider: Lobito Orourke Jr Other Providers: Ronal Phillip ; [facility] ; Teofilo Garibay ; Anselmo Bland ; Grabiel Martinez ; Karl Puentes ; Rakesh Loera ; Mireya Maurer ; Edin Hernández I. ; Kavon Villagomez II ; Lillian Langston ; Jaylan Pires ; Clara Argueta ; Radha Chandler ; Janet Borja ; Zara Duarte ; Rosa M Colunga ; Julia Baptiste ; Silvestre Laguna ; Chad Bowman ; Alan Boo ; Dani Hadley ; Jayne Hadley ; Grabiel Boyer ; Ana Laura Landry ; Gerber Montoya ; Olvin Esteves ; Celestino Chapin ; Loki Garza ; Mellissa Leos ; Jaylan Caceres ; Tigist Mueller ; Mary Jo Caceres ; Alfonso Macdonald ; Phoebe Perez ; Conrado Virk ; Zina Moreno ; Gianna Lane ; hPoebe Caldwell. ; Pam Hernandez ; Jasvir Hannah ; Abigail Wooten ; Eboni Rhoades ; Rahel Quispe ; Linda Quezada ; Federico Quezada V ; Nathan Rizzo ; Janet Torrez ; Jose Velasco ; Jovanny Kasper ; Yuliet Latham ; Bonnie Villeda ; Federico Cerna ; Basilio Leos ; Iain Carvajal ; Steff Chong ; Rahel Jose ; Alan Conroy ; Jailene Villanueva ; Moreno Champagne ; Mo Garza ; Corinne Raymond ; Johan Morgan ; Sree Crain ; Eleno Dawn ; Reza Christy ; Mary Jo Moura ; Grabiel Gavin Other Interventions: Discharge Summary Assessment (RN) Last Done: 11/20/19 15:40 Supervising Physician Co-Signing Physician Notes Patient seen and examined on the day of discharge. I agree with the discharge summary by Brittany TRUONG. I have reviewed the chart including labs, imaging and plans for discharge. patient resting comfortably in bed, tolerating tube feeds, no nausea or vomiting he says his strength is getting better today - Dysphagia: possible achalasia but would need manometry study at [facility] as outpatient tolerating tube feeds via PEG, continue until his dysphagia can be diagnosed and possibly treated - MRSA bacteremia unclear etiology, ended up having possible septic arthritis of the knee continue course of Vancomycin IV no fevers, repeat blood cultures with no growth Coding Level of Care Code D/C Day Management >30 mins Diagnoses MRSA bacteremia R78.81; B95.62 Anemia D64.9 Knee pain M25.569 Thrombocytosis D47.3 Weight loss R63.4 Dysphagia R13.10 Altered mental status R40.1 Altered mental status type: stupor Acute kidney injury N17.9 Thiamine deficiency E51.9 Hypokalemia E87.6 Pulmonary nodule R91.1 History of gastric ulcer Z87.19 DVT prophylaxis Z29.9
[2019-11-20 15:38] VITALS: PULSE 79; O2SAT 96
[2019-11-20 15:42] VITALS: BP 132/68
== END 2019-11-20 17:50 | DRG 987 ==
LOC: ED 18:15 → SUATTDRO 21:16 → 2S 21:16 → 2W 10-29 20:19 → 3N 11-18 14:44